=== PATIENT | female | born 1945 | race Caucasian/White ===

== ENCOUNTER → 2017-09-01 13:00 | Outpatient (CLI) | payer MEDICARE, OTHER, SELFPAY ==
[2017-09-01 13:47] LABS: Albumin, Serum 3.5 g/dL (3.2-5.0); BUN 13 mg/dL (7-18); Calcium,Total 9.4 mg/dL (8.5-10.1); Chloride 99 mmol/L (98-107); Creatinine, Serum 1.08 mg/dL (0.55-1.02); EST Glomerular Filtration Rate 53 mL/min (>60); Est Glom Filt Rate - Afr Amer 64 mL/min (>60); Glucose 57 mg/dL (74-106); Phosphorus 3.4 mg/dL (2.5-4.9); Potassium 4.1 mmol/L (3.5-5.1); Sodium Level 139 mmol/L (136-145)
[2017-09-01 13:53] LABS: Protein, Urine (Random) < 6.0 mg/dL (<11.9)
[2017-09-01 14:21] LABS: PTHIN 73.6 pg/mL (18.4-80.1); Vitamin D,25 Hydroxy 47.3 ng/mL (29.95-100.01)
== END ==
PROVIDERS: Family Provider Family Medicine; PCP Family Medicine; Visit Provider Internal Medicine Nephrology
DX: N18.3 Chronic kidney disease, stage 3 (moderate) (principal); R80.9 Proteinuria, unspecified
CPT/HCPCS: 36415; 80069; 82306; 82570; 83970; 84156

== ENCOUNTER → 2017-12-22 08:20 | Outpatient (CLI) | payer MEDICARE, OTHER, SELFPAY ==
--- NOTE | 2017-12-22 08:36 | ECHOD_ITS ---
Reason For Study: HTN Procedure This was a 2D Doppler, Color Flow transthoracic echocardiogram. The study was technically difficult. Exam performed in department. Left Ventricle Normal LV size. Left ventricular systolic function is normal. The estimated ejection fraction is 60 %. Transmitral diastolic flow velocities suggest moderate (stage 2) diastolic dysfunction (pseudonormal pattern). No regional wall motion abnormalities noted. Right Ventricle Normal RV size. Normal systolic function. Atria Normal left atrium. Normal right atrium. Mitral Valve Normal mitral valve. Tricuspid Valve Normal tricuspid valve. Mild (1+) tricuspid valve insufficiency. Pulmonary artery systolic pressure is 34 mmHg. Aortic Valve Trisinus/trileaflet aortic valve. Pulmonic Valve Normal pulmonic valve. Great Vessels Normal aortic root. The pulmonary artery is normal size. Normal inferior vena cava. Pericardium/Pleural No pericardial effusion. MMode/2D Measurements & Calculations LVIDd: 4.0 cm IVSd: 0.97 cm LVOT diam: 1.8 cm LVIDs: 2.0 cm LVPWd: 0.84 cm LVOT area: 2.6 cm2 FS: 49.3 % LAV(MOD-sp4): 22.7 ml LA A4 area: 11.4 cm2 RA A4 area: 12.4 cm2 Time Measurements MV dec time: 0.16 sec Doppler Measurements & Calculations MV E max patrick: 125.6 cm/sec Lat Peak E' Patrick: 7.7 cm/sec Med Peak E' Patrick: 11.5 cm/sec MV A max patrick: 103.5 cm/sec E/E' lat: 16.2 E/E' med: 10.9 MV E/A: 1.2 MV V2 max: 134.8 cm/sec MV P1/2t max patrick: 134.8 cm/sec Ao V2 max: 134.8 cm/sec MV max P.3 mmHg MV P1/2t: 61.0 msec Ao max P.3 mmHg MV V2 mean: 70.6 cm/sec MV dec slope: 647.2 cm/sec2 Ao V2 mean: 94.4 cm/sec MV mean P.4 mmHg MVA(P1/2t): 3.6 cm2 Ao mean P.0 mmHg MV V2 VTI: 34.6 cm Ao V2 VTI: 31.8 cm MVA(VTI): 2.0 cm2 EMIR(I,D): 2.1 cm2 EMIR(V,D): 2.2 cm2 LV V1 max: 109.5 cm/sec SV(LVOT): 67.5 ml PA V2 max: 141.2 cm/sec LV V1 max P.8 mmHg LV V1 mean P.4 mmHg LV V1 mean: 72.0 cm/sec LV V1 VTI: 25.5 cm TR max patrick: 277.8 cm/sec TR max P.9 mmHg Interpretation Summary Normal LV size. Left ventricular systolic function is normal. The estimated ejection fraction is 60 %. Transmitral diastolic flow velocities suggest moderate (stage 2) diastolic dysfunction (pseudonormal pattern). Mild (1+) tricuspid valve insufficiency. Ordering Physician: Brent Cifuentes Referring Physician: Brent Cifuentes Performed By: Deon Nelson, [facility]
[2017-12-22 09:53] LABS: AST(SGOT) 24 U/L (15-37); Alanine Aminotransfer ALT/SGPT 21 U/L (13-56); Albumin, Serum 3.4 g/dL (3.2-5.0); Alkaline Phosphatase 87 U/L (45-117); Bilirubin, Direct 0.17 mg/dL (0.00-0.30); Cholesterol 184 mg/dL (200); Globulin 3.5 g/dL (2.2-4.2); High Density Lipoprotein 79 mg/dL; Protein, Total 6.9 g/dL (6.4-8.2); Triglycerides 105 mg/dL; Very Low Density Lipoprotein 21 mg/dL (5-40)
== END ==
PROVIDERS: Family Provider Family Medicine; PCP Family Medicine; Visit Provider Internal Medicine Cardiovascular Disease
DX: I10 Essential (primary) hypertension (principal); E78.00 Pure hypercholesterolemia, unspecified; Z98.890 Other specified postprocedural states
CPT/HCPCS: 36415; 80061; 80076; 93306

== ENCOUNTER → 2018-01-27 10:54 | Outpatient (CLI) | payer MEDICARE, OTHER, SELFPAY | PROVIDERS: Family Provider Family Medicine; PCP Family Medicine; Visit Provider Family Medicine | DX: M25.552 Pain in left hip (principal) | CPT/HCPCS: 73502 ==

== ENCOUNTER → 2018-04-05 13:20 | Outpatient (CLI) | payer MEDICARE, OTHER, SELFPAY ==
[2018-04-05 14:35] LABS: Anion Gap 7 (5-15); BUN 17 mg/dL (7-18); BUN/Creat Ratio 14.8 RATIO (10-20); Chloride 100 mmol/L (98-107); Creatinine, Serum 1.15 mg/dL (0.55-1.02); EST Glomerular Filtration Rate 49 mL/min (>60); Est Glom Filt Rate - Afr Amer 59 mL/min (>60); Glucose 95 mg/dL (74-106); Potassium 4.4 mmol/L (3.5-5.1); Sodium Level 140 mmol/L (136-145)
[2018-04-05 16:52] LABS: Microalbumin,Random Urine 6.5 mg/L (NO RANGE EST.); Microalbumin:Creatinine Ratio 13.3 mg/g CRE (<30 mg/g CRE)
== END ==
PROVIDERS: Family Provider Family Medicine; PCP Family Medicine; Referring Provider Internal Medicine Nephrology; Visit Provider Internal Medicine Nephrology
DX: N18.3 Chronic kidney disease, stage 3 (moderate) (principal)
CPT/HCPCS: 36415; 80048; 82043; 82570

== ENCOUNTER → 2018-11-10 14:53 | Outpatient (CLI) | payer MEDICARE, OTHER, SELFPAY ==
[2018-11-04 12:48] VITALS: BMI 30.9
--- NOTE | 2018-11-10 14:56 | BI_ITS ---
MAMMOGRAPHY - BILATERAL SCREENING REASON FOR EXAM: Female, 73 years old. Routine annual screening examination. PERTINENT HISTORY: Non-contributory. Remote right excisional breast biopsy. TECHNIQUE: Digital bilateral breast radha (3D mammographic acquisition) in the CC and MLO projections. 2-D mediolateral oblique (MLO) and craniocaudad (CC) views of both breasts were obtained. CAD: Full Field Digital Mammography with Computer Added Detection was performed. COMPARISON: Comparison is made with prior study April 22, 2017 and March 06, 2016 FINDINGS: Breast Composition: The breasts are heterogeneously dense, which may obscure small masses. There are no dominant masses or suspicious calcifications. Stable small bilateral axillary lymph nodes. No other significant abnormalities are identified. There has been no significant change since the prior study. BI/SCREENING MAMM (CAD), BILAT IMPRESSION: Stable bilateral screening mammogram. Yearly follow-up mammogram recommended. (A) ASSESSMENT CATEGORY: BIRADS Category 2: Benign. A letter regarding these results will be sent to the patient by the facility within 30 days. Approximately 10% of breast cancers are not detected by mammography. A normal mammogram should not delay biopsy of a clinically suspicious abnormality. [id number] Electronically Signed: Kenneth Dominguez, at 15:55 EDT , Service support ,
== END ==
PROVIDERS: Family Provider Family Medicine; PCP Family Medicine; Referring Provider Family Medicine; Visit Provider Family Medicine
DX: Z12.31 Encounter for screening mammogram for malignant neoplasm of breast (principal)
CPT/HCPCS: 77063; 77067

== ENCOUNTER → 2019-01-17 12:42 | Outpatient (CLI) | payer MEDICARE, OTHER, SELFPAY ==
[2019-01-04 08:36] VITALS: BMI 32.1
[2019-01-17 13:34] LABS: Hematocrit 36.1 % (37-47); Mean Corp Hgb Conc 33.2 g/dL (32-36); Mean Corpuscular Hgb 31.6 pg (27.0-32.0); Platelet Count 196 K/mm3 (150-450); RBC Distribution Width CV 13.6 % (11.6-14.6); RBC Distribution Width SD 47.4 fl (35.1-43.9); White Blood Count 6.1 K/mm3 (4.4-11.0)
[2019-01-17 14:03] LABS: Albumin, Serum 3.5 g/dL (3.2-5.0); BUN 19 mg/dL (7-18); BUN/Creat Ratio 16.2 RATIO (10-20); Calcium,Total 9.6 mg/dL (8.5-10.1); Chloride 100 mmol/L (98-107); Creatinine, Serum 1.17 mg/dL (0.55-1.02); EST Glomerular Filtration Rate 48 mL/min (>60); Est Glom Filt Rate - Afr Amer 58 mL/min (>60); Glucose 70 mg/dL (74-106); Phosphorus 3.2 mg/dL (2.5-4.9); Potassium 4.4 mmol/L (3.5-5.1); Sodium Level 139 mmol/L (136-145)
[2019-01-17 14:09] LABS: PTHIN 52.5 pg/mL (18.4-80.1); Vitamin D,25 Hydroxy 37.8 ng/mL (29.95-100.01)
== END ==
PROVIDERS: Family Provider Family Medicine; PCP Family Medicine; Referring Provider Internal Medicine Nephrology; Visit Provider Internal Medicine Nephrology
DX: N18.3 Chronic kidney disease, stage 3 (moderate) (principal)
CPT/HCPCS: 36415; 80069; 82306; 83970; 85027

== ENCOUNTER → 2019-06-17 13:29 | Outpatient (CLI) | payer MEDICARE, OTHER, SELFPAY ==
[2019-01-04 08:36] VITALS: BMI 32.1
--- NOTE | 2019-06-17 13:53 | BI_ITS ---
MAMMOGRAPHY - UNILATERAL DIAGNOSTIC: LEFT BREAST REASON FOR EXAM: Female, 73 years old. Left breast lump. Two-week history of nipple inversion. PERTINENT HISTORY: Non-contributory. TECHNIQUE: Digital unilateral breast radha (3D mammographic acquisition) in the CC and MLO projections. 2-D mediolateral oblique (MLO) and craniocaudad (CC) views of both breasts were obtained. CAD: Full Field Digital Mammography with Computer Added Detection was performed. COMPARISON: Comparison is made with prior mammogram dated November 10, 2018. FINDINGS: Breast Composition: The breasts are heterogeneously dense, which may obscure small masses. There are no dominant masses or suspicious calcifications. No other significant abnormalities are identified. There has been no significant change since the prior study. BI/DIAG MAMM W/CAD, UNILAT IMPRESSION: Stable unilateral diagnostic mammogram. With the patient''s history of the abnormality in the left periareolar region, correlation with ultrasound is recommended. ASSESSMENT CATEGORY: BIRADS Category 0: Incomplete. Need additional imaging evaluation. A letter regarding these results will be sent to the patient by the facility within 30 days. Approximately 10% of breast cancers are not detected by mammography. A normal mammogram should not delay biopsy of a clinically suspicious abnormality. Electronically Signed: Kenneth Dominguez, at 12:42 EST , Service support ,
--- NOTE | 2019-06-17 13:53 | US_ITS ---
STUDY: ULTRASOUND BREAST - LEFT REASON FOR EXAM: Female, 73 years old. Inversion of the left breast nipple. TECHNIQUE: Axial and longitudinal images of the LEFT breast were performed with a high resolution ultrasound transducer. # OF IMAGES: 122 COMPARISON: Comparison is made with prior mammogram dated June 17, 2019. FINDINGS: LEFT Breast: There is a 1.8 cm x 2.3 cm x 1.6 cm inhomogeneous hypoechoic nodule with posterior acoustical shadowing at the 3:00 position of the breast that 3 cm from the nipple. A similar-appearing nodule measuring 1.1 cm x 1.2 cm x 0.9 cm is seen at the 6:00 position of the breast is 6 cm from nipple. US/Breast Complete Unilateral IMPRESSION: Suspicious nodules in the breast as described. Biopsy is recommended. ASSESSMENT CATEGORY: BIRADS Category 5: Highly Suggestive of Malignancy - Appropriate Action Should Be Taken. A letter regarding these results will be sent to the patient by the facility within 30 days. Electronically Signed: Kenneth Dominguez, at 10:49 EST , Service support ,
== END ==
PROVIDERS: Family Provider Family Medicine; PCP Family Medicine; Referring Provider Family Medicine; Visit Provider Family Medicine
DX: N63.42 Unspecified lump in left breast, subareolar (principal); N64.59 Other signs and symptoms in breast
CPT/HCPCS: 76641; 77061; 77065; G0279

== ENCOUNTER → 2019-06-23 10:38 | Outpatient (CLI) | payer MEDICARE, OTHER, SELFPAY ==
[2019-06-22 15:09] VITALS: BMI 32.1
--- NOTE | 2019-06-23 | IMM_PTH ---
PATIENT: BASSAM JAIN LOC: [facility] U#:[id number] AGE/SX: 79/F ROOM: RE06/23/[address]: Dr. Amarilis Fernandez MD : 1945 BED: DIS: SPEC #: [id number] RECD: 06/24/19 12:55 STATUS: GINA REQ #: [id number] HENRI: 06/23/19 00:[address]: Amarilis Fernandez DEPT: IMMUNOHISTOCHEMISTRY RECD BY: Snehal Wheeler ENTERED: 06/24/19 13:01 SP TYPE: IMMUNO OTHR DR: Dr. Celina Dangelo DO Tissues: A - Left breast, NOS B - Left breast, NOS Procedures: CALPONIN-1 (add) CK5-6 (add) CK8 (add) E-CAD (add) HER2 OUMOU (add) KI-67 (add) P53 (add) AK (add) P40 (add) ER (initial) PHYSICIAN & INSTITUTION [address] [address] SPECIMEN INFORMATION: Tissue Source: A - Left breast at 2 o'clock, B - Left breast at 9 o'clock Clinical Info: Left breast mass Specimen Number: [id number] A & B CPT code: 41178 x2, 26847 x12, 72414 x6 METHODOLOGY: Deparaffinized sections of prefer/formalin-fixed tissue or PAP/DQ stained slides are incubated with monoclonal/polyclonal antibodies/oligonucleotide probes. Localization is made via biotin free immunoperoxidase method. Appropriate controls are performed and reacted as expected. Results on target cell population are indicated in the following table: RESULTS: ANTIBODY / CLONE RESULT Block A P53 (DO-7) positive 2% Ki-67 (30-9) positive 15% CK8 (94nvwmE47) positive CK5-6 (D5 & 1684) negative Calponin-1 (DC298M) negative P40 (BC28) negative E-Cad (ECH-6) negative MORPHOMETRIC ANALYSIS ER (clone 6F11) >95%, strong intensity AK (clone 16/1E2) 83%, moderate to strong intensity Her-2Neu (clone CB11) 0 Block B P53 (DO-7) positive 2% Ki-67 (30-9) positive 10% CK8 (11ygbqN62) positive CK5-6 (D5 & 1684) negative Calponin-1 (LY379D) negative P40 (BC28) negative E-Cad (ECH-6) negative MORPHOMETRIC ANALYSIS ER (clone 6F11) >95%, strong intensity AK (clone 16/1E2) 35%, moderate intensity Her-2Neu (clone CB11) 0 The prognostic test for HER2 is performed on formalin-fixed paraffin embedded tissue. A 3+ (positive) staining pattern is defined as intense, homogeneous, complete, circumferential membranous staining in >10% of contiguous tumor cells. A similar weak (2+) staining pattern is interpreted as equivocal. EDISON follow-up testing is recommended for all equivocal cases. Positivity/negativity for ER/AK is reported if > or < 1% of the tumor cells are immuno- reactive, respectively. The ASCO/CAP criteria is used for scoring. Reference: Journal of Clinical Oncology, 2013; 31:0546-7631 & 2010; 16:4860-9648. Duration of fixation: 8 Hrs; Sample Adequate: Yes. These assays have not been validated on decalcified tissues. Results should be interpreted with caution given the likelihood of false negativity on decalcified specimens. These tests were developed and their performance characteristics determined by [facility]. They may not have been cleared or approved by the U.S. Food and Drug Administration. The FDA has determined that such clearance or approval is not necessary. The above immunohistochemical/dualISH markers are ordered and reviewed by the Pathologist. INTERPRETATION: A. Left breast at 2 o'clock, biopsy: Invasive lobular carcinoma, nuclear grade 1. Positive for estrogen receptors (favorable prognostic indicator). Positive for progesterone receptors (favorable prognostic indicator). Negative for overexpression of SXZ7upr. B. Left breast at 9 o'clock, biopsy: Invasive lobular carcinoma, nuclear grade 1. Positive for estrogen receptors (favorable prognostic indicator). Positive for progesterone receptors (favorable prognostic indicator). Negative for overexpression of SJE5xse. AM:dawit 06/27/19
--- NOTE | 2019-06-23 10:39 | US_ITS ---
STUDY: ULTRASOUND BREAST - LEFT REASON FOR EXAM: Female, 73 years old. Ultrasound guided left breast biopsies. TECHNIQUE: Axial and longitudinal images of the LEFT breast were performed with a high resolution ultrasound transducer. # OF IMAGES: 50 COMPARISON: Comparison is made with prior sonogram of the breast dated June 17, 2019. FINDINGS: LEFT Breast: Under direct sonographic guidance, the surgeon performed an ultrasound-guided core biopsies of the 1.5 cm x 1.9 cm by 2 cm suspicious nodule at the 2:00 position of the breast at 3 cm from the nipple. This region also perform core biopsies of the 0.9 cm x 1.3 cm x 1.6 cm suspicious nodule at the 6:00 addition of the breast at 3 cm from the nipple. US/US Breast Biopsy 1st Lesion IMPRESSION: Successful ultrasound-guided core biopsies of the abdomen out the seen at the 2:00 and 5:00 position of the breast. ASSESSMENT CATEGORY: BIRADS Category 4: Suspicious - Biopsy Should Be Considered. A letter regarding these results will be sent to the patient by the facility within 30 days. Electronically Signed: Kenneth Dominguez, at 15:54 EST , Service support ,
--- NOTE | 2019-06-23 11:15 | BRBX_PTH ---
PATIENT: BASSAM JAIN LOC: [facility] U#:[id number] AGE/SX: 79/F ROOM: RE06/23/[address]: Dr. Amarilis Fernandez MD : 1945 BED: DIS: SPEC #: [id number] RECD: 06/23/19 12:00 STATUS: GINA REJurgen #: [id number] HENRI: 06/23/19 11:[address]: Amarilis Fernandez DEPT: SURGICAL PATHOLOGY RECD BY: Mohit Nowak ENTERED: 06/23/19 13:52 SP TYPE: BREAST BX OTHR DR: Dr. Celina Dangelo DO Tissues: A - Left breast, NOS B - Left breast, NOS Procedures: Surgery Specimen Level IV HEADER OPERATION: Left breast biopsy PRE-OP DIAGNOSIS: Left breast mass TISSUE SUBMITTED: A - Left breast at 2 o'clock, B - Left breast at 5 o'clock ISCHEMIC TIME: 1 minute FIXATION TIME: 8 hours MICROSCOPIC DIAGNOSIS A. Left breast mass at 2 o'clock, needle core biopsy: Invasive lobular carcinoma with the following characteristics: Maximal length - 7 millimeters Nuclear grade - 1 See comment. B. Left breast mass at 5 o'clock, needle core biopsy: Invasive lobular carcinoma with the following characteristics: Maximal length - 8 millimeters Nuclear grade - 1 See comment. AM:dawit 06/24/19 COMMENT A & B. ER/ME/Wec4tzn studies are being performed on sections of tumor and the results from this study will be reported separately ([id number]). Case has been reviewed in consultation with Dr. Vega who concurs with the above diagnosis. IDC:SJ MICROSCOPIC DESCRIPTION Slides are reviewed. GROSS DESCRIPTION A - Received is one container labeled with the patient's name and not further designated. The specimen consists of two cores of light couch soft tissue. The average length is 1.5 cm and average diameter 0.2 cm. The specimen is totally submitted in one cassette. B - Received is one container labeled with the patient's name and not further designated. The specimen consists of three cores of light couch soft tissue. The average length is 1.3 cm and average diameter 0.2 cm. The specimen is totally submitted in one cassette. / AM:dawit 06/23/19 TC:0 CPT: 03260 x2
--- NOTE | 2019-06-23 11:38 | OP.PCM_ITS ---
Report of Operation Date of Procedure: 06/23/19 Pre-Operative Diagnosis: Left breast mass x2, left nipple inversion Post-Operative Diagnosis: Same Surgery/Procedure Performed:: Ultrasound-guided left breast core needle biopsy x2, one at 2:00 3 cm from the nipple and one at 5:00 3 cm from the nipple Special Medications: none Specimen's removed: 1. Left breast mass at 2:00 3 cm from nipple, #2 left breast mass at 5:00 3 cm from the nipple Estimated Blood Loss (mL): Minimal Description of Procedure: Procedure: ultrasound-guided core biopsy Indications: 73 year-old female with 2 hypoechoic, irregular/shadowing nodules at 2:00 and 5:00 in the left breast both 3 centimeters from the nipple. Risk benefits were discussed the patient and she elected to proceed with ultrasound guided core biopsy with clip placement Description of procedure: Patient was brought into the ultrasound room in the left breast was marked. A timeout was completed verifying correct patient, procedure, site, specially, prior to beginning procedure. The left breast was prepped and draped in usual sterile fashion and using local anesthesia was obtained with 1% lidocaine with epi. Each of the procedures for each mass done similarly. The mass was located with the ultrasound. Small incision was made with 11 blade to introduced the 14-gauge BARD MaxCore through the skin. Under ultrasound guidance 2-3 core samples were obtained using then 14-gauge BARD MaxCore and sent in formalin for pathology of each of the masses. The hydro- Devante coil was used at 2:00 3 cm from nipple and Bard dual ultra ribbon was used at 5:00 3 cm from the nipple was then deployed into the biopsy cavity under ultrasound guidance and a picture was taken. Upon completion procedure hemostasis was obtained and a Steri-Strip and OpSite were placed. Patient was then taken to the mammography suite for clip verification. The clip was verified. The patient tolerated the procedure well and was discharged from the breast imaging department good condition. complications: none - Complications None
== END ==
PROVIDERS: Family Provider Family Medicine; PCP Family Medicine; Referring Provider Surgery; Visit Provider Surgery
DX: C50.412 Malignant neoplasm of upper-outer quadrant of left female breast (principal); C50.512 Malignant neoplasm of lower-outer quadrant of left female breast; Z17.0 Estrogen receptor positive status [ER+]
CPT/HCPCS: 19083; 19084; 88305; 88341; 88342

== ENCOUNTER → 2019-06-29 11:15 | Outpatient (CLI) | payer MEDICARE, OTHER, SELFPAY ==
[2019-06-22 15:09] VITALS: BMI 32.1
[2019-06-29 11:48] LABS: AST(SGOT) 18 U/L (15-37); Alanine Aminotransfer ALT/SGPT 24 U/L (13-56); Albumin, Serum 3.5 g/dL (3.2-5.0); Alkaline Phosphatase 81 U/L (45-117); Anion Gap 5 (5-15); BUN 19 mg/dL (7-18); BUN/Creat Ratio 13.8 RATIO (10-20); Bilirubin, Direct 0.19 mg/dL (0.00-0.30); Calcium,Total 9.6 mg/dL (8.5-10.1); Chloride 101 mmol/L (98-107); Creatinine, Serum 1.38 mg/dL (0.55-1.02); EST Glomerular Filtration Rate 40 mL/min (>60); Est Glom Filt Rate - Afr Amer 48 mL/min (>60); Globulin 3.6 g/dL (2.2-4.2); Glucose 130 mg/dL (74-106); Potassium 4.2 mmol/L (3.5-5.1); Protein, Total 7.1 g/dL (6.4-8.2); Sodium Level 138 mmol/L (136-145)
== END ==
PROVIDERS: Family Provider Family Medicine; PCP Family Medicine; Referring Provider Surgery; Visit Provider Surgery
DX: C50.919 Malignant neoplasm of unspecified site of unspecified female breast (principal)
CPT/HCPCS: 36415; 80048; 80076

== ENCOUNTER → 2019-06-30 11:42 | Outpatient (CLI) | payer MEDICARE, OTHER, SELFPAY ==
[2019-06-22 15:09] VITALS: BMI 32.1
--- NOTE | 2019-06-30 11:42 | MRI_ITS ---
STUDY: BILATERAL BREAST MR WITHOUT AND WITH CONTRAST REASON FOR EXAM: Female, 73 years old. Left breast cancer diagnosed June 23, 2019. History of multiple biopsies and nipple retraction. TECHNIQUE: Multi-sequence multi-echo imaging of both breasts was performed with a dedicated breast coil. T1-weighted and T2-weighted images were performed before the administration of contrast. T1-weighted images were also performed after the administration of Dotarem IV 14 ml without complications. COMPARISON: Screening mammograms dated October 2018 and left diagnostic mammogram dated June 17, 2019. Left breast ultrasound biopsy dated July 03, 2019. FINDINGS: RIGHT BREAST: The breast tissue is heterogeneously dense with minimal background enhancement. There are no abnormal enhancing masses or areas of non-mass enhancement in the right breast. LEFT BREAST: The breast tissue is heterogeneously dense. 7 mm irregular enhancing lesion at the 2:00 position of the left breast approximately 5 cm from the nipple. Extensive non-mass enhancement of the left breast in an area measuring approximately 7 cm x 8 cm extending to the subareolar region of the left breast with retraction of the nipple. Extensive enhancement in the subareolar region of the retracted nipple (sagittal series 7 images 6-18). This extensive non-mass enhancement is highly suspicious for contiguous parenchymal malignancy, especially since the enhancement extends to the subareolar region and there is nipple retraction. There are no enlarged or abnormal lymph nodes. There is no abnormality in the visualized regions of the chest or liver. MRI/Breast Bilateral W/O and W IMPRESSION: Index lesion at the 2:00 position with irregular enhancement as described. Extensive non-mass enhancement extending involving the upper and lower quadrants of the left breast extending to the subareolar region of the nipple, highly suspicious for parenchymal malignant involvement. No abnormality in the right breast. No adenopathy identified. CATEGORY: BIRADS Category 6: Known Biopsy-Proven Malignancy - Appropriate Action Should Be Taken. A letter regarding these results will be sent to the patient by the facility within 30 days. Electronically Signed: Jason Gong MD at 16:11 EST , Service support ,
[2019-06-30 12:22] VITALS: BP 127/58; PULSE 67; RESP 14; TEMP 36.6; O2SAT 98; BMI 30.3
== END ==
PROVIDERS: Family Provider Family Medicine; PCP Family Medicine; Referring Provider Surgery; Visit Provider Surgery
DX: C50.912 Malignant neoplasm of unspecified site of left female breast (principal); N64.53 Retraction of nipple; N17.9 Acute kidney failure, unspecified
CPT/HCPCS: 96360; 77049; A9575; J7040; C8908

== ENCOUNTER 2019-08-05 12:04 | Inpatient (IN) | payer MEDICARE, OTHER, SELFPAY ==
[2019-07-27 13:53] VITALS: BMI 30.3
--- NOTE | 2019-07-28 09:06 | HP_ITS ---
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 Is patient in pain?: No Allergies codeine Adverse Reaction (Verified 07/27/19 13:52) Vomiting hydrocodone Adverse Reaction (Verified 07/27/19 13:52) Vomiting meperidine [From Demerol] Adverse Reaction (Verified 07/27/19 13:52) Vomiting Medications Insulin Aspart [Novolog] 1,000 unit CONT INF 11/09/16 [History Confirmed 07/27/19] aspirin 81 mg chewable tablet 81 mg PO .qod tab 12/10/17 [History Confirmed 07/27/19] levothyroxine 25 mcg capsule 25 mcg PO QDAY 12/10/17 [History Confirmed 07/27/19] simvastatin 10 mg tablet 10 mg PO QHS #90 tab 09/15/18 [Rx Confirmed 07/27/19] lisinopril 20 mg-hydrochlorothiazide 25 mg tablet 1 tab PO DAILY #90 tab 10/13/18 [Rx Confirmed 07/27/19] ranolazine 500 mg tablet,extended release,12 hr 500 mg PO DAILY #90 tab 10/13/18 [Rx Confirmed 07/27/19] cbd oil 500 mg SUBLINGUAL DAILY 01/04/19 [History Confirmed 07/27/19] cholecalciferol (vitamin D3) 25 mcg (1,000 unit) capsule 1,000 unit PO .QOD cap 01/04/19 [History Confirmed 07/27/19] turmeric-turmeric ext-pepper 500 mg-black pepper extract 3 mg capsule mg PO cap 01/04/19 [History Confirmed 07/27/19] amlodipine 5 mg tablet 5 mg PO DAILY #90 tab 02/24/19 [Rx Confirmed 07/27/19] metoprolol succinate 100 mg tablet,extended release 24 hr 100 mg PO DAILY #90 tab 03/21/19 [Rx Confirmed 07/27/19] [id number] pepper 100 mg-200 unit-50 mg-800 mcg tablet tab PO 07/18/19 [History Confirmed 07/27/19] [facility] Medical History Hyperlipidemia (Chronic) Essential (primary) hypertension (Chronic) Back problem (Acute) Breast cancer, left breast (Acute ~06/2019) Cataracts, bilateral (Acute) Hearing problem (Acute) Kidney disease (Acute) Osteoarthritis (Acute) Osteoporosis (Acute) Vision problems (Acute) Arthritis (Chronic) Environmental allergies (Chronic) Hyperthyroidism (Chronic) Type 2 diabetes mellitus without complications (Chronic) Acute renal failure (Resolved) Surgical History History of left breast biopsy (Acute ~06/2019) Status post right breast biopsy (Acute) History of left heart catheterization (Resolved 10/30/06) History of tubal ligation (Resolved) Family History Father Myocardial infarction <55 Heart disease Hypertension High cholesterol Mother Osteoporosis Skin cancer Social History (Updated 07/28/19 @ 09:06 by Amarilis Fernandez MD) Smoking Status: Never smoker alcohol intake: current alcohol intake frequency: holidays/special occasions only substance use type: does not use caffeine: Yes Type: coffee Number of servings: 2 additional social history: DOES USE ASPIRIN DOES NOT USE IBUPROFEN HPI HPI HPI: BASSAM JAIN, is a 73 F who presents to the office today for HPI HPI Surgical H&P: Yes HPI: BASSAM JAIN, is a 73 F who presents to the office today for discussion of surgical option for her left clinical stage IIa (T3N0) invasive lobular carcinoma?ER NH positive and HER-2/twin negative. Patient did meet with Dr. Stanford as well as Dr. Peñaloza with plastic surgery. Patient currently does not want reconstructive surgery may consider in the future. ROS General General: No weight change, fatigue, colon cancer, breast cancer or weakness HEENT HEENT: No difficulty swallowing, eye injury, eye surgery, swollen glands or hoarseness Endo Endocrine: Yes thyroid disease and diabetes mellitus; no thyroid cancer, Hair loss, heat intolerance or cold intolerance Skin Skin: No rash or changing moles Breast Breast: Yes left breast lump (Left nipple inversion) and abnormal US; no right breast lump, breast pain, abnormal mammogram or breast enlargement Musc Musculoskeletal: Yes back problems and arthritis; no rheumatoid arthritis, gout or joint pain Cardio Cardiovascular: Yes high blood pressure; no murmur, pacemaker, heart disease, atrial fibrillation, heart attack, heart stent, palpitations, shortness of breat with exertion or chest pain Psych Psychiatric: No depression, anxiety or hearing voices Resp Respiratory: No shortness of breath, No sleep apnea, No cough, No COPD, No asthma, No emphysema, No wheezing Gastro Gastrointestinal: No abdominal pain, No nausea or vomiting, No diarrhea, No constipation, No blood in stool, No acid reflux, No hemorrhoids, No ulcers, No gallbladder problem, No black,tarry stools [place]bel Hematologic: No blood thinners, No blood disorders, No bleeding, No anemia, No blood clots Neuro Neurologic: No weakness Exam Const General: cooperative, comfortable, no acute distress Chest Other: Left breast ecchymosis resolving, firmness on the lateral and inferior aspect along with nipple retraction, left axillary no lymphadenopathy on exam Cardio Heart Sounds: no murmurs Assessment & Plan Problems 1. Invasive lobular carcinoma of left breast in female C50.912 multifocal Plan I have given the patient options for initial surgical treatment?discussed with patient that due to the large area of tumor on exam and MRI would not recommend lumpectomy. Options are the following: mastectomy vs. mastectomy followed by immediate reconstruction. I have described the procedures to the patient. I have described the advantages and disadvantages of the options, but I have told the patient that among the options, the survival rate for breast cancer is the same. I have told the patient that with all the surgeries that a sentinel lymph node biopsy is required. I have described the procedure of sentinel lymph node biopsy to the patient. I have told the patient that if the biopsy is positive for metastatic disease, then a full axillary lymph node dissection is required. I have told the patient that adjuvant chemotherapy will be required should the lymph nodes reveal metastatic disease. Also, a full lymph node dissection will increase the risk for lymphedema, especially if there are 4 or more lymph nodes positive for metastatic disease and radiation to the axilla is also required. I have told the patient the risks of surgery, including but not limited to: infection, bleeding, scar tissue, seroma and persistent seroma, lymph leak, injury to any blood vessels, injury to any nerves (particularly the long thoracic, the thoracodorsal, and the second intercostal brachial and the resultant sequelae), lymphedema, cosmetic deformity, dysesthesias, wound infections, further surgery (especially if margins are not clear), complications of anesthesia, etc. the patient understands. Patient has already met with Dr. Peñaloza and does not plan to do any reconstruction currently. Is agreeable with a left mastectomy and sentinel lymph node biopsy, possible axillary lymph node dissection, nuclear tracer and blue dye injection. I have answered all the patient?s questions at this point to her satisfaction and she has no further questions. Greater than 50% of direct patient contact was spent in counseling or coordination of care. I spent 25 minutes counseling the patient and coordinating care. Amarilis Fernandez M.D. Pager: [phone] [facility] [address] [place] [address], [address] [place] [address] Office: [phone] Plan Detail Goals Decrease pain and spasm Improve ROM Decrease pain in lower extremity Improve ability to stand Barriers Facet arthropathy Hip Degeneration Follow Up We will schedule surgery Coding Level of Care Code Off vis,est,level 4 Diagnoses Invasive lobular carcinoma of left breast in female C50.912 Time Spent (min) 07/28/19 0907 <Electronically signed by Amarilis Mackey am, MD> Date _ Amarilis Fernandez MD I have re-examined the patient. There are no clinical changes since date of exam.
[2019-08-03 11:58] LABS: Hemoglobin A1c 7.3 % (4.2-6.3)
[2019-08-03 12:08] LABS: Anion Gap 6 (5-15); BUN 19 mg/dL (7-18); BUN/Creat Ratio 14.1 RATIO (10-20); Calcium,Total 9.6 mg/dL (8.5-10.1); Chloride 103 mmol/L (98-107); Creatinine, Serum 1.35 mg/dL (0.55-1.02); EST Glomerular Filtration Rate 41 mL/min (>60); Est Glom Filt Rate - Afr Amer 49 mL/min (>60); Glucose 327 mg/dL (74-106); Potassium 4.5 mmol/L (3.5-5.1); Sodium Level 138 mmol/L (136-145); Thyroid Stim Hormone (TSH) 2.93 uIU/mL (0.358-3.74)
[2019-08-05] VITALS (12 sets, daily range): BP systolic 100–139; BP diastolic 51–64; PULSE 57–66; RESP 15–18; TEMP 36.1–37; O2SAT 95–99; BMI 29.9
--- NOTE | 2019-08-05 | AXNB_PTH ---
PATIENT: BASSAM JAIN LOC: MS3 U#:[id number] AGE/SX: 74/F ROOM: NH321 RE08/05/[address]: Dr. Keon Hussein MD : 1945 BED: 1 DIS: 08/08/2019 SPEC #: [id number] RECD: 08/05/19 13:23 STATUS: GINA REJurgen #: [id number] HENRI: 08/05/19 00:[address]: Amarilis Fernandez DEPT: SURGICAL PATHOLOGY RECD BY: Snehal Wheeler ENTERED: 08/05/19 14:01 SP TYPE: AX NODE BX OTHR DR: Dr. Celina Dangelo, DO Tissues: A - Axillary lymph node, NOS B - Left breast, NOS C - Left breast, NOS D - Left breast, NOS E - Axilla, NOS F - Left breast, NOS Procedures: Frozen Section (charge) Surgery Specimen Level IV Surgery Specimen Level V Surgery Specimen Level HEADER OPERATION: Mastectomy, sentinel lymph node biopsy, radiotracer ID PRE-OP DIAGNOSIS: Invasive lobular carcinoma left breast TISSUE SUBMITTED: A - [place] lymph node sent for frozen section at 1315, B - Left breast, long stitch - lateral, short stitch - superior, C - Short stitch - new superior margin, long stitch - lateral, D - New inferior skin margin, short stitch - superior, long stitch - lateral, E - Axillary contents, F - New inferior margin, short stitch - superior margin, long stitch - lateral FROZEN SECTION DIAGNOSIS A. [place] lymph nodes, biopsy: Two out of two lymph nodes, positive for metastatic carcinoma. SJ:dawit 08/05/19 MICROSCOPIC DIAGNOSIS A. Left axillary sentinel lymph nodes, biopsy: Two out of two lymph nodes positive for metastatic carcinoma. Extranodal tumor extension measures 7 mm in greatest dimension. B. Left breast, modified radical mastectomy: Invasive lobular carcinoma. See cancer checklist below. C. New superior margin, excision: Invasive lobular carcinoma. True margins are negative for carcinoma. D. New inferior skin margin, excision: Invasive lobular carcinoma. Cutaneous margin is free of carcinoma. Invasive carcinoma is present at 1.5 mm from the inferior margin. E. Left axillary sentinel lymph nodes, regional lymph adenectomy: 16 out of 16 lymph nodes with metastatic carcinoma. Multifocal extranodal extension (ranging in size from 1 to 6 mm). F. New inferior margin, excision: Invasive lobular carcinoma. True inferior margin is free of carcinoma. Carcinoma is located at 13 mm from true margin. AM:dawit 08/11/19 COMMENT BREAST CANCER SUMMARY Procedure: Modified radical mastectomy Specimen: Type: Full breast Size: 21 x 15 x 6 cm Laterality: Left breast Invasive Tumor: Size: 9 x 8 x 6 cm Focality: Multiple foci of invasive carcinoma (largest focus 9 x 8 x 6 cm) Histologic type: Invasive lobular carcinoma. 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 Skeletal muscle: Free of carcinoma. Margins Involved by Invasive Carcinoma: Distance from closest margin: 13 mm from inferior margin Margins Involved by In Situ Carcinoma: Distance from closest margin: 22 mm from inferior margin Lymph Nodes: Number of sentinel lymph nodes examined: 2/2 with metastatic carcinoma and extranodal tumor. Total number of lymph nodes examined: 18 Number of lymph nodes positive for macrometastatic carcinoma - 18 out of 18 with extranodal extension ranging in size from 1 to 7 mm in greatest dimension. See specimens A & E. Microcalcifications: Present in neoplastic and non-neoplastic tissue. Treatment Effect: Unknown Additional Pathologic Findings: Atypical lobular hyperplasia and atypical intraductal hyperplasia closely approaching DCIS, (2.0mm in greatest dimension). Ancillary Studies: Previously performed on same tumor ([id number] / [id number]) ER: >95%, strong intensity ID: 83%, moderate to strong intensity Her2: 0 Clinical History: Mass of breast Pathologic Stage: pT3 N3a Mx The above summary is in compliance with [employer] [place] (CAP) Cancer Protocol Checklist and [place] Joint Committee on Cancer (AJCC) Staging Manual, 8th Ed. 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 Immunohistochemistry ([id number]) supports the above diagnosis. Case has been reviewed in consultation with Dr. Vega who concurs with the above diagnosis. IDC:SJ MICROSCOPIC DESCRIPTION Slides are reviewed. GROSS DESCRIPTION A - Received fresh for frozen section diagnosis labeled with the patient's name is a specimen designated sentinel lymph node. The specimen consists of two pieces of adipose tissue containing two nodules measuring 1 x 1 x 0.5 cm and 2 x 1 x 0.7 cm. Both lymph nodes are bisected and submitted entirely for frozen section diagnosis in two cassettes as follows: 1 - frozen section, one bisected lymph node, 2??frozen section, one bisected lymph node. / SJ:dawit 08/05/19 B - Received in fixative is one container labeled with the patient's name and designated left breast, long stitch - lateral, short stitch - superior. The specimen consists of a modified radical mastectomy specimen consisting of breast tissue with overlying skin ellipse. The breast tissue measures 21 x 15 x 6 cm. The overlying skin ellipse measures 21 x 10 cm. The nipple measures 1 cm in greatest dimension. The specimen is oriented with a suture, long stitch - lateral, short stitch - superior. The skin surface appears unremarkable. The specimen is inked as follows: posterior - black, superior - blue, inferior - green, medial - red and lateral - orange. More dictation will follow after fixation. / SJ:dawit 08/05/19 Section do not reveal well defined mass; however, reveal an indurated area present in the lateral to central portion of the specimen measuring 9 x 6 x 4 cm. The indurated area is ~0.5 cm away from the inferior margin of the specimen. Avionics Technician sections are submitted in 26 cassettes as follows: 1??nipple, entirely submitted, 2 - perpendicular medial and lateral margin, 3??perpendicular superior and posterior margins and skin, 4-22 - indurated mass-like lesion (4 & 5 - most lateral portion, 6-19 - medial portion, 20-23 - most medial portion), 24-26 - residential sales representative sections away from the indurated area. / SJ: 08/08/19 C - Received in fixative is one container labeled with the patient's name and designated short stitch - new superior margin, long stitch - lateral. The specimen consists of a piece of couch-yellow fibroadipose tissue measuring 19 x 5.5 cm and up to 2 cm in thickness. The specimen is oriented by two sutures, short suture is identifying the new superior margin and long suture the lateral margin. The specimen is inked as follows: new superior margin - black, old margin - blue, medial margin - red and lateral margin?- orange. Sections reveal yellow adipose cut surface without any mass lesion. Avionics Technician sections are submitted in eight cassettes as follows: 1 - perpendicular medial and lateral margin, 28??residential sales representative sections including new and old superior margin. Sections will be submitted after additional fixation. / SJ: 08/08/19 D - Received in fixative is one container labeled with the patient's name and designated new inferior skin margin, short stitch - superior, long stitch - lateral. The specimen consists of a piece of skin with underlying tissue measuring 16 x 1 cm and up to 3.5 cm in thickness. The specimen is oriented by two sutures, short stitch - superior, long stitch - lateral. No skin lesion is identified. The specimen is inked as follows: superior - blue, inferior - green, medial tip - red, lateral tip - orange. Sections do not reveal any mass lesion. Avionics Technician sections are submitted in eight cassettes as follows: 1 - perpendicular medial and lateral margin, 2-8 - residential sales representative sections from other areas including new inferior margin and superior margin. Sections will be submitted after additional fixation. / SJ: 08/08/19 E - Received in fixative is one container labeled with the patient's name and designated axillary contents. The specimen consists of a piece of adipose tissue measuring 8 x 9 x 3 cm. Also present in the container is a small piece of unremarkable adipose tissue measuring 3 x 2 x 1 cm. Multiple nodules consistent with lymph nodes are identified. The largest nodule measures 2 cm in greatest dimension. Sections of the nodule reveal gross involvement by the tumor. The nodules consistent with lymph nodes are submitted in entirety. Avionics Technician sections are submitted in nine cassettes as follows: 1 - three lymph nodes in the smaller piece of the tissue, 2-9 - larger piece of tissue (2 - multiple lymph nodes, 38??each cassette containing one bisected lymph node, 9 - largest lymph node serially sectioned). / SJ:dawit 08/08/19 F - Received in fixative is one container labeled with the patient's name and designated new inferior margin, short stitch - superior of margin, long stitch - lateral. The specimen consists of a piece of fibroadipose tissue measuring 9 x 4 x 1.5 cm. The specimen is oriented as follows: short stitch - superior, long stitch - lateral. The specimen is inked as follows: superior margin - blue, inferior margin - green, medial margin - red and lateral margin - orange. Sections do not reveal any mass lesion. Avionics Technician sections are submitted in eight cassettes as follows: 1 - perpendicular medial and lateral margin, 2-8 - residential sales representative sections from the other areas including superior and inferior margins. Sections are submitted after additional fixation. / GURWINDER:dawit 08/08/19 TC:0 CPT: 29006 x2, 60703 x3, 43008, 80781
--- NOTE | 2019-08-05 | IMM_PTH ---
PATIENT: BASSAM JAIN LOC: MS3 U#:[id number] AGE/SX: 74/F ROOM: AK321 RE08/05/[address]: Dr. Keon Hussein MD : 1945 BED: 1 DIS: 08/08/2019 SPEC #: [id number] RECD: 08/10/19 12:59 STATUS: SOUT REQ #: [id number] HENRI: 08/05/19 00:[address]: Amarilis Fernandez DEPT: IMMUNOHISTOCHEMISTRY RECD BY: Snehal Wheeler ENTERED: 08/10/19 13:00 SP TYPE: IMMUNO OTHR DR: Dr. Michoacano Donato, DO MD Dr. Karel Damon, DO Dr. Celina Dangelo, DO Tissues: B - Left breast, NOS A - Axillary lymph node, NOS Procedures: CD31 (add) CK7 (add) CK8 (add) E-CAD (add) FACTOR VIII (add) Pankeratin (initial) Pankeratin (add) GATA3 (add) PHYSICIAN & [address] [address] SPECIMEN INFORMATION: Tissue Source: A - [place] lymph nodes, biopsy, B - Left breast, mastectomy Clinical Info: Invasive lobular carcinoma left breast Specimen Number: [id number] A1, A2, B1, B6 CPT code: 59726 x2, 35945 x9 METHODOLOGY: Deparaffinized sections of prefer/formalin-fixed tissue or PAP/DQ stained slides are incubated with monoclonal/polyclonal antibodies/oligonucleotide probes. Localization is made via biotin free immunoperoxidase method. Appropriate controls are performed and reacted as expected. Results on target cell population are indicated in the following table: RESULTS: ANTIBODY / CLONE RESULT Block A1 AE1-3 (AE1/AE3/PCK26) positive CK7 (OV-TL12/30) positive Block A2 AE1-3 (AE1/AE3/PCK26) positive CK7 (OV-TL12/30) positive Block B1 GATA3 (L50-823) positive AE1-3 (AE1/AE3/PCK26) positive CK8 (95chvkJ06) positive CD31 (HELDER/70A) negative Factor VIII (R Ag) negative E-Cad (ECH-6) positive Block B6 E-Cad (ECH-6) positive These tests were developed and their performance characteristics determined by [facility]. They may not have been cleared or approved by the U.S. Food and Drug Administration. The FDA has determined that such clearance or approval is not necessary. The above immunohistochemical/dualISH markers are ordered and reviewed by the Pathologist. INTERPRETATION: A. Left axillary sentinel lymph nodes, biopsy: Two out of two lymph nodes positive for metastatic carcinoma. Extranodal tumor extension measures 7 millimeters B. Left breast, mastectomy: Invasive lobular carcinoma. Focal Paget's disease of breast. AM:dawit 08/12/19 Case has been reviewed in consultation with Dr. Vega who concurs with the above diagnosis. IDC:SJ
--- NOTE | 2019-08-05 09:48 | EKG12_ITS ---
Test Reason : PREOP Blood Pressure : / mmHG Vent. Rate : 065 BPM Atrial Rate : 065 BPM P-R Int : 176 ms QRS Dur : 090 ms QT Int : 438 ms P-R-T Axes : 052 018 005 degrees QTc Int : 455 ms Normal sinus rhythm Nonspecific T wave abnormality Abnormal ECG When compared with ECG of 05-APR-2009 20:27, Premature supraventricular complexes are no longer Present Confirmed by TYRELL RÍOS, SUNNY ([id number]), medical editor BONNIE AARON ([id number]) on 08/09/2019 1:30:15 PM Referred By: Amarilis Fernandez Confirmed By:JONNA SANTILLAN MD
--- NOTE | 2019-08-05 10:00 | NM_ITS ---
PROCEDURE: NUCLEAR MEDICINE Injection [place] Node - LEFT breast(s). REASON FOR EXAM: Female, 74 years old. Left breast cancer. TECHNIQUE: [place] node localization using radionuclide methods of the LEFT breast(s) was performed following subcutaneous administration of 1.1 mCi of of sulfur colloid Tc-99m. FINDINGS: 1.1 mCi of technetium labeled sulfur colloid was injected subcutaneously at the biopsy site. NM/Lymph Node Injection Only IMPRESSION: Subcutaneous injection of 1.1 mCi of technetium labeled sulfur colloid for sentinel node imaging. Electronically Signed: Kenneth Dominguez, at 10:31 EST , Service support ,
[2019-08-05] MEDS: Lactated Ringers 1,000 ML 100 ML IV ×2 (10:05→15:00)
[2019-08-05 10:06] LABS: Bedside Glucose 275 mg/dL (70-110)
[2019-08-05] MEDS: Cefazolin 2 GM in 0.9% Normal Saline 100 ML IV (12:00)
[2019-08-05] MEDS: 0.9% Normal Saline (Pres. free 10 ML Vial (12:33)
--- NOTE | 2019-08-05 15:34 | OP.PCM_ITS ---
Report of Operation Date of Procedure: 08/05/19 Pre-Operative Diagnosis: Left invasive lobular breast cancer Post-Operative Diagnosis: Left invasive lobular breast cancer, positive axillary nodes Surgery/Procedure Performed:: Left modified radical Mastectomy with axillary lymph node dissection heel builder machine: Nita Celaya heel builder machine: Andrew Wen Type of Anesthesia:: General/Supplemental Anesthesiologist: Giuseppe Lucas Special Medications: Ancef 2 g IV x1 Specimen's removed: 1. Left mastectomy, 2. New superior margin, 3. New inferior skin margin, 4. New inferior margin 5. [place] nodes, 6. Left axillary contents Drains: 2 JANEE Bhutanese round drains Estimated Blood Loss (mL): 50 cc Fluids Replaced: 1400 cc Description of Procedure: In radiology the breast tissue was injected with TC-9 9 sulfur colloid. 120 minutes later the patient was taken to the operating room and general anesthesia was induced. Localization studies were reviewed. 4 cc of methylene blue dye was injected in the 4 quadrants periareolar along with 10 cc of normal saline. This was massaged gently for 7 minutes. The left breast and axilla were prepped and draped in usual sterile fashion. A timeout was completed verifying correct patient, procedure, site, positioning, special equipment prior to beginning procedure. Handheld gamma probe was used to identify the location of the hottest spot in the axilla. Prior to the incision, the counts were 7. The incision was made and no obviously hot or blue nodes were identified two nodes, one node had a 10 count of 3 and the other 7. Were palpated which were sent to pathology. Then did proceed with the mastectomy with plans to come back and do the axillary lymph node dissection Skin incision was made that encompassed the nipple areolar complex in generally oblique direction across the breast, being sure to take extra tissue on the inferior flap due to proximity of the cancer. Flaps are raised in the avascular plane between the prescription he continues tissues in the breast tissue from the clavicle superiorly, the sternum medially, the anterior rectus sheath inferiorly, and posterolateral border of the pectoralis major muscle laterally. Hemostasis was achieved in the flaps. Next, the breast tissue and underlying pectoralis fascia were excised from the pectoralis major muscle, progressing from medial to laterally. At the lateral border of the pectoralis major muscle, the breast tissue was swung laterally and the lateral pedicle identified with the breast tissue gave way to the fat of the axilla. The lateral pedicle was incised and the specimen removed and oriented for pathology. Additional margins for superior and inferior were taken as the flaps were thicker, new inferior skin margin was also taken due to proximity of firm tissue. Dissection progressed under pectoralis major and then minor muscle. The pectoral muscles were retracted medially the Ron retractor. Level II lefty tissue was included in dissection. The axillary vein was then identified and cleared of overlying fat. First branch of the axillary vein was clamped and divided and tied with 2-0 silk ties. Thoracodorsal nerve was then identified deep to the ligated vein and preserved. The long thoracic nerve was then identified along the lateral edge of the latissimus dorsi on the chest wall and preserved. Intercostobrachial nerve was also identified and preserved. Remaining lefty tissue between these nerves was carefully removed. Borders included latissimus dorsi laterally and chest wall/serratus anterior muscle medially/anteriorly. Taking care to protect the nerves. The wound was irrigated and hemostasis was achieved. Bobbi was also placed for hemostasis. Closed suction drains were brought into the operating field through a separate stab incision and sutured to skin with 3-0 nylon sutures. The medial drain was # 1 that was mainly in the mastectomy area, the lateral drain is #2 and that went into the axillary cavity as well as the inferior mammary area. The wound was closed with interrupted 2-0 Vicryl to the simultaneously followed by a subcuticular layer of 4-0 Monocryl and Steri-Strips. The wound was dressed The patient tolerated procedure well and sent to postanesthesia care unit in stable condition. - Complications none - Admit VTE Documentation VTE Present on Admission: Yes VTE Mechan Device Prophylaxis: SCD's VTE Pharm Prophylaxis ordered?: No Reason prophylaxis not ordered:: Treatment Not Indicated
[2019-08-05] MEDS: 0.9% Saline Lock 10 ML Syringe IV (20:31)
[2019-08-05] MEDS: proMETHazine 25 MG/ML Syringe 6.25 MG IV (20:31)
[2019-08-05] MEDS: Insulin Lispro 100 UNIT/ML INSULN.PEN SC (21:39)
[2019-08-05 21:50] LABS: Bedside Glucose 408 mg/dL (70-110)
[2019-08-06] VITALS (20 sets, daily range): BP systolic 92–153; BP diastolic 34–63; PULSE 71–92; RESP 12–22; TEMP 36.7–37.1; O2SAT 92–100
[2019-08-06] MEDS: 0.9% Saline Lock 10 ML Syringe IV ×4 (02:28→21:00)
[2019-08-06] MEDS: Ondansetron 4 MG/2 ML Vial IV ×2 (02:28→10:41)
[2019-08-06] MEDS: proMETHazine 25 MG/ML Syringe 6.25 MG IV (05:54)
[2019-08-06 06:10] LABS: Bedside Glucose > 500 mg/dL (70-110)
[2019-08-06] MEDS: Insulin Lispro 100 UNIT/ML INSULN.PEN SC ×2 (06:22→06:24)
[2019-08-06 06:28] LABS: Absolute Lymphocyte Count 1.21 X10^3/uL (0.83-4.51); Absolute Neutrophil Count 8.7 X10^3/uL (2.0-7.7); Basophil# 0.02 X10^3/uL; Basophil% 0.2 % (0-1); Hematocrit 33.4 % (37-47); Hemoglobin 10.8 g/dL (12.0-15.0); Lymphocyte # 1.21 X10^3/ul (4.0); Lymphocyte % 11.6 % (19-41); Mean Corp Hgb Conc 32.3 g/dL (32-36); Mean Corpuscular Hgb 31.9 pg (27.0-32.0); Mean Corpuscular Volume 98.5 fL (81-99); Mean Platelet Vol. 11.7 fl (6.2-12.0); Monocyte% 3.8 % (0-10); NRBC Flagged by Analyzer 0 % (0-5); Neutrophil # 8.69 X10^3/uL (2.7-7.7); Neutrophil % 83.6 % (47-70); Platelet Count 190 K/mm3 (150-450); RBC Distribution Width CV 13.3 % (11.6-14.6); RBC Distribution Width SD 47.7 fl (35.1-43.9); Red Blood Count 3.39 M/mm3 (4.2-5.4); White Blood Count 10.4 K/mm3 (4.4-11.0)
[2019-08-06 06:52] LABS: Glucose 686 mg/dL (74-106)
--- NOTE | 2019-08-06 07:49 | PN.SURG_ITS ---
Subjective: Patient's blood sugar was 680 this morning last night was 400, did give patient extra 4 units of insulin plus the scale and will plan to have her place her insulin pump back on with her basal rate. Also consult hospitalist for blood sugar management, will place a Justice due to low urine output and patient is receiving a bolus. - Physical Exam Vitals/I&O's: Vital Signs Temp Pulse Resp BP Pulse Ox 98.7 F 92 18 153/63 H 96 08/06/19 03:15 08/06/19 03:15 08/06/19 03:15 08/06/19 03:15 08/06/19 03:15 Oxygen Delivery Method Room Air Weight: 149 lb 4.047 oz Body Mass Index (BMI) 29.9 Finger Stick Blood Glucose 396 Intake and Output for Last 24 Hours 08/04/19 08/05/19 08/06/19 23:59 23:59 23:59 Intake Total 1440 / 1440 120 / 120 Output Total 40 / 40 565 / 565 Balance 1400 / 1400 -445 / -445 General: Oriented x3, Cooperative, No apparent distress, - - Sleepy Lungs: Normal air movement Cardiovascular: Regular rate Abdomen: Soft, Non Tender, Non-Distended Skin: - - JPs sanguinous and serosanguineous, incision dressed clean dry and intact over the left chest Laboratory Results 08/05/19 09:50: POC Glucose 275 H 08/05/19 21:33: POC Glucose 408 H 08/06/19 06:04: POC Glucose > 500 H* 08/06/19 06:23: WBC 10.4, RBC 3.39 L, Hgb 10.8 L, Hct 33.4 L, MCV 98.5, MCH 31.9, MCHC 32.3, RDW Std Deviation 47.7 H, RDW Coeff of Alex 13.3, Plt Count 190, MPV 11.7, Immature Gran % (Auto) 0.800, Neut % (Auto) 83.6 H, Lymph % (Auto) 11.6 L, [place] % (Auto) 3.8, Eos % (Auto) 0.0, Baso % (Auto) 0.2, Absolute Neuts (auto) 8.7 H, Absolute Lymphs (auto) 1.21, Nucleated RBC % 0 08/06/19 06:23: Glucose 686 H* Current Medications Amlodipine Besylate (Norvasc) 5 mg PO DAILY [facility] Atorvastatin Calcium (Lipitor) 5 mg PO QHS [facility] Last Admin: 08/05/19 21:47 Dose: Not Given Documented by: Hydrochlorothiazide (Hctz) 25 mg PO DAILY [facility] Insulin Aspart (Pump, Basal) 0 unit SC UD [facility] Insulin Human Lispro (Humalog Kwikpen (Bkc)) 0 unit SC ACHS [facility]; Protocol Last Admin: 08/06/19 06:24 Dose: 4 u Documented by: Levothyroxine Sodium (Synthroid) 25 mcg PO DAILY@0600 [facility] Last Admin: 08/06/19 06:00 Dose: Not Given Documented by: Lisinopril (Zestril) 20 mg PO DAILY [facility] Metoprolol Succinate (Toprol Xl (Beta Valorie)) 100 mg PO DAILY [facility] Morphine Sulfate () 2 - 4 mg IV Q2H PRN PRN PRN Reason: Pain Score 1-10/10 Ondansetron HCl (Zofran) 4 mg IV Q6H PRN PRN PRN Reason: NAUSEA/VOMITING Last Admin: 08/06/19 02:28 Dose: 4 mg Documented by: Oxycodone HCl (Oxyir) 5 - 10 mg PO Q4H PRN PRN PRN Reason: Pain Score 6-10/10 Promethazine HCl (Phenergan) 6.25 mg IV Q6H PRN PRN PRN Reason: NAUSEA/VOMITING Last Admin: 08/06/19 05:54 Dose: 6.25 mg Documented by: Ranolazine (Ranexa) 500 mg PO DAILY [facility] Sodium Chloride () 10 - 40 ml IV UD PRN PRN Reason: SALINE FLUSH Last Admin: 08/06/19 05:55 Dose: 10 ml Documented by: Medical Necessity - Tobacco Use Smoking Status: Never smoker Tobacco Use: Non-smoker Assessment/Plan All Active Problems (Last Reviewed 07/27/19 @ 13:50 by Darling Isbell) Disproportion of reconstructed breast (Acute) 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 Patient have some nausea vomiting likely due to her elevated blood sugars did consult hospitalist to help manage this. Patient on a regular diet 2. Patient has low urine output will place a Justice and patient is also receiving a bolus as her creatinine is also elevated on BMP check. 3. Continue JANEE drains to suction 4. We will continue to monitor glucose closely as well as her urine output/creatinine. Amarilis Fernandez M.D. Pager: [phone] [facility] [address] [place] [address], [facility], [address] [place] [address] Office: [phone]
[2019-08-06] MEDS: Lactated Ringers 1,000 ML 999 ML IV (08:37)
[2019-08-06 08:49] LABS: Anion Gap 22 (5-15); BUN 49 mg/dL (7-18); BUN/Creat Ratio 18.5 RATIO (10-20); Calcium,Total 8.7 mg/dL (8.5-10.1); Chloride 98 mmol/L (98-107); Creatinine, Serum 2.65 mg/dL (0.55-1.02); EST Glomerular Filtration Rate 19 mL/min (>60); Est Glom Filt Rate - Afr Amer 23 mL/min (>60); Glucose 695 mg/dL (74-106); Potassium 5.2 mmol/L (3.5-5.1); Sodium Level 133 mmol/L (136-145)
[2019-08-06] MEDS: Insulin Basal Pump SC (08:50)
[2019-08-06 09:06] LABS: Bedside Glucose > 500 mg/dL (70-110)
[2019-08-06 09:06] LABS: Bedside Glucose > 500 mg/dL (70-110)
--- NOTE | 2019-08-06 09:21 | NURSING ---
DR CARPIO HERE ON UNIT. NEW ORDERS RECEIVED DO TO AM LAB RESULTS.
[2019-08-06] MEDS: 0.9% Normal Saline 1,000 ML 999 ML IV ×2 (10:33→11:37)
--- NOTE | 2019-08-06 11:38 | CM.UR ---
Addendum entered by Adrianna Ren 08/06/19 11:42: ACCIDENTLY CLOSED NOTE PRIOR TO FINISHING. THIS IS COMPLETE ASSMT. RN CM Assessment Introduced role of RN CM to patient's . When I asked if it was ok to sit and ask some questions, he said that You can ask but I don't have to answer. This RN did explain that is correct he can choose to decline to answer any question. Patient is sleeping and not able to participate in RN CM Assessment but is agreeable to speak with me. Care providers, pharmacy, and demographics verified. Presentation: Admitted for mastectomy Admit Dx: Breast CA Re-Admit: No Barriers/Issues: None PCP: Celina Dangelo Specialists: Recently seen by Dr. Stanford and Dr. Peñaloza. States lex is in [place] but he can't remember name. [facility] sees a PIPE PULLER locally but couldn't tell me name. I offered name of REBEKAH Lilly but he couldn't confirm. Preferred Pharmacy: [facility] for short term and [employer] mail order for long term acute care registered nurse. Insurance: [employer] and [employer]. Rx Benefit: Yes. When asked if they have any concerns paying for medications he replied, that is none of your business. Explained that we ask in case they have trouble, we can see if we can help. States no, no concerns with that. LNOK: , Nick LW/HPOA: does not have, declines at this time. Living Arrangements: 2 story home but they live on first floor. Denies that patient has any problems getting around the house. She cares for her . 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 DME: Insulin pump DME co: no preference HHC: None SNF: None Goal: Home DC PLAN: Home, no needs. Sharda Ren RN, [facility]. Original Note: RN CM Assessment+ Introduced role of RN CM to patient. Patient is sleeping and able to participate in RN CM Assessment. Care providers, pharmacy, and demographics verified. at bedside. Presentation: Admit Dx: Re-Admit: Barriers/Issues: PCP: Specialists: Preferred Pharmacy: Insurance: Rx Benefit: LNOK: LW/HPOA: Living Arrangements: ADL?s: Transportation: DME: None DME co: HHC: None SNF: None Goal: DC PLAN: Sharda Ren RN, CCM.
[2019-08-06 11:50] LABS: Anion Gap 16 (5-15); BUN 48 mg/dL (7-18); BUN/Creat Ratio 18.8 RATIO (10-20); Calcium,Total 7.9 mg/dL (8.5-10.1); Chloride 105 mmol/L (98-107); Creatinine, Serum 2.55 mg/dL (0.55-1.02); EST Glomerular Filtration Rate 20 mL/min (>60); Est Glom Filt Rate - Afr Amer 24 mL/min (>60); Estimated Creatinine Clearance 20.37 ml/min; Glucose 588 mg/dL (74-106); Potassium 5.2 mmol/L (3.5-5.1); Sodium Level 133 mmol/L (136-145)
[2019-08-06 11:50] LABS: Bedside Glucose 463 mg/dL (70-110)
--- NOTE | 2019-08-06 12:06 | CON.PCM_ITS ---
Reason for Consult Date of Consultation: 08/06/19 Reason for Consultation: Consult requested by Dr. Fernandez for hyperglycemia. History of Present Illness: The patient is a 74 year old F who underwent a left modified radical mastectomy with lymph node dissection on 08/05. Patient is a type I diabetic and was having hyperglycemia last night and into today. Glucose of 686. She received insulin today. Patient normally is on an insulin pump, it was not resumed last night. Today, patient had a + anion gap and later had small acetones. Patient being admitted to the ICU for mgmt of DKA. [] Past Medical History Past Medical History (Chronic Problems): Chronic Problems (Last Updated 08/06/19 @ 10:[address] Amarilis Fernandez MD) Diabetes mellitus (Chronic) Estrogen receptor positive status (ER+) (Chronic) Breast ptosis (Chronic) Stage II Breast asymmetry (Chronic) right breast is larger than the left breast Inversion of left nipple (Chronic) Hyperlipidemia (Chronic) Essential (primary) hypertension (Chronic) Facet arthropathy, lumbar (Chronic) Medical History: Medical History (Last Reviewed 08/06/19 @ 12:[address] Karel Landa, DO) Diabetes mellitus (Chronic) E11.9 Estrogen receptor positive status (ER+) (Chronic) Z17.0 Disproportion of reconstructed breast (Acute) N65.1 Acquired absence of left breast and nipple (Acute) Z90.12 Breast ptosis (Chronic) N64.81 Stage II Breast asymmetry (Chronic) N64.89 right breast is larger than the left breast Inversion of left nipple (Chronic) N64.59 Invasive lobular carcinoma of left breast in female (Acute) C50.912 multifocal Hyperlipidemia (Chronic) E78.5 Essential (primary) hypertension (Chronic) I10 Facet arthropathy, lumbar (Chronic) M47.816 Segmental and somatic dysfunction of pelvic region (Acute) M99.05 Segmental and somatic dysfunction of lumbar region (Acute) M99.03 Type 1 diabetes mellitus E10.9 Back problem M53.9 Breast cancer, left breast Onset Date: ~06/2019 C50.912 Cataracts, bilateral H26.9 Hearing problem H91.90 Kidney disease N28.9 Osteoarthritis M19.90 Osteoporosis M81.0 Vision problems H54.7 Arthritis M19.90 Environmental allergies Z91.09 Hyperthyroidism E05.90 Acute renal failure N17.9 Allergies codeine Adverse Reaction (Verified 08/05/19 09:38) Vomiting hydrocodone Adverse Reaction (Verified 08/05/19 09:38) Vomiting meperidine [From Demerol] Adverse Reaction (Verified 08/05/19 09:38) Vomiting Home Medications: Ambulatory Orders Medication Instructions Recorded Insulin Aspart [Novolog] 1,000 unit CONT INF DAILY 11/09/16 aspirin 81 mg chewable tablet 81 mg PO .qod tab 12/10/17 levothyroxine 25 mcg capsule 25 mcg PO QDAY 12/10/17 simvastatin 10 mg tablet 10 mg PO QHS #90 tab 09/15/18 lisinopril 20 1 tab PO DAILY #90 tab 10/13/18 mg-hydrochlorothiazide 25 mg tablet cholecalciferol (vitamin D3) 25 1,000 unit PO .QOD cap 01/04/19 mcg (1,000 unit) capsule turmeric-turmeric ext-pepper 500 500 mg PO DAILY cap 01/04/19 mg-black pepper extract 3 mg capsule amlodipine 5 mg tablet 5 mg PO DAILY #90 tab 02/24/19 metoprolol succinate 100 mg 100 mg PO DAILY #90 tab 03/21/19 tablet,extended release 24 hr Ranolazine [Ranexa] 500 mg PO DAILY 08/01/19 Surgical History: Surgical History (Last Reviewed 08/06/19 @ 12:[address] Karel Landa DO) History of left breast biopsy Onset Date: ~06/2019 Z98.890 Status post right breast biopsy Z98.890 benign History of left heart catheterization Onset Date: 10/30/06 Z98.890 History of tubal ligation Z98.51 Smoking Status: Never smoker Tobacco Use: Non-smoker - *Family History Maternal Family History: Family History (Last Reviewed 08/06/19 @ 12:[address] Karel Landa DO) Father Myocardial infarction Heart disease Hypertension High cholesterol Mother Osteoporosis Skin cancer Review of Systems Constitutional: Denies: Chills, Fever, Weight Change Eyes: Denies: Blurred vision, Double vision HEENT: Denies: Head Aches, Sinus Congestion, Sinus Drainage Cardiovascular: Denies: Chest Pain, Palpitations Respiratory: Denies: Cough, Shortness of breath at rest, Sputum production Gastrointestinal: Reports: Nausea, Vomiting. Denies: Abdominal Pain Genitourinary: Denies: Dysuria Musculoskeletal: Denies: Joint Pain, Joint Tenderness Skin: Denies: Rash, Wounds Neurological: Denies: Numbness, Tingling, Focal weakness Psychiatric: Denies: Anxiety, Depression Hematologic/ Lymphatic: Denies: Hx of blood clot Comment: All review of systems were negative except as mentioned above in the history of present illness and the other review of systems. - Physical Exam Vitals/I&O's: Vital Signs Temp Pulse Resp BP Pulse Ox 36.9 C 83 16 96/45 L 98 08/06/19 12:00 08/06/19 12:00 08/06/19 12:00 08/06/19 12:00 08/06/19 12:00 Oxygen Delivery Method Room Air Weight: 67.7 kg Body Mass Index (BMI) 29.9 Finger Stick Blood Glucose 463 Intake and Output for Last 24 Hours 08/04/19 08/05/19 08/06/19 23:59 23:59 23:59 Intake Total 1440 / 1440 2126.91 / 2126.91 Output Total 40 / 40 565 / 565 Balance 1400 / 1400 1561.91 / 1561.91 General: Alert, Cooperative, No apparent distress HEENT: Atraumatic, Normocephalic, - - no icterus Oral: Moist Mucosa, No Gingival or Mucosal Lesions/ Ulcerations Neck: No Nodes, Trachea Midline Lungs: Clear to auscultation, Normal air movement Cardiovascular: Regular rate, No murmurs Abdomen: Bowel Sounds Present, Soft, Non Tender Extremities: No edema, No Calf Tenderness Skin: No rashes, No breakdown Musculoskeletal: No Tenderness to Palpation of Joints or Extremities, No Muscle Wasting Neurological: Sensory exam intact to light touch and pain, - - no clonus Psych/Mental Status: Appropriate, Flat Affect Laboratory Results 08/05/19 21:33: POC Glucose 408 H 08/06/19 06:04: POC Glucose > 500 H* 08/06/19 06:23: WBC 10.4, RBC 3.39 L, Hgb 10.8 L, Hct 33.4 L, MCV 98.5, MCH 31.9, MCHC 32.3, RDW Std Deviation 47.7 H, RDW Coeff of Alex 13.3, Plt Count 190, MPV 11.7, Immature Gran % (Auto) 0.800, Neut % (Auto) 83.6 H, Lymph % (Auto) 11.6 L, [place] % (Auto) 3.8, Eos % (Auto) 0.0, Baso % (Auto) 0.2, Absolute Neuts (auto) 8.7 H, Absolute Lymphs (auto) 1.21, Nucleated RBC % 0 08/06/19 06:23: Glucose 686 H* 08/06/19 07:02: POC Glucose > 500 H* 08/06/19 08:18: Sodium 133 L, Potassium 5.2 H, Chloride 98, Carbon Dioxide 13.0 L, Anion Gap 22 H, BUN 49 H, Creatinine 2.65 H, Estim Creat Clear Calc 19.60, Est GFR (MDRD) Af Amer 23 L, Est GFR (MDRD) Non-Af 19 L, BUN/Creatinine Ratio 18.5, Glucose 695 H*, Calcium 8.7 08/06/19 08:48: POC Glucose > 500 H* 08/06/19 11:00: Acetone Level SMALL H 08/06/19 11:00: Sodium 133 L, Potassium 5.2 H, Chloride 105, Carbon Dioxide 12.0 L, Anion Gap 16 H, BUN 48 H, Creatinine 2.55 H, Estim Creat Clear Calc 20.37, Est GFR (MDRD) Af Amer 24 L, Est GFR (MDRD) Non-Af 20 L, BUN/Creatinine Ratio 18.8, Glucose 588 H*, Calcium 7.9 L 08/06/19 11:46: POC Glucose 463 H* Current Medications Acetaminophen (Tylenol) 650 mg PO Q6H PRN PRN PRN Reason: Pain Score 1-10/10 Amlodipine Besylate (Norvasc) 5 mg PO DAILY [facility] Last Admin: 08/06/19 11:15 Dose: Not Given Documented by: Atorvastatin Calcium (Lipitor) 5 mg PO QHS [facility] Last Admin: 08/05/19 21:47 Dose: Not Given Documented by: Dextrose (D50w Syringe) 0 gm IV X1 PRN; Protocol PRN Reason: HYPOGLYCEMIA Hydrochlorothiazide (Hctz) 25 mg PO DAILY [facility] Last Admin: 08/06/19 11:14 Dose: Not Given Documented by: Pantoprazole Sodium 40 mg/ (Sodium Chloride) 110 mls @ 330 mls/hr IV Q24 [facility] Sodium Chloride () 1,000 mls @ 150 mls/hr IV .Q6H40M [facility] Last Admin: 08/06/19 10:35 Dose: Not Given Documented by: Sodium Chloride () 1,000 mls @ 500 mls/hr IV .Q2H [facility] Stop: 08/06/19 12:13 Insulin Human Lispro 100 unit/ (Sodium Chloride) 100 mls @ 6.77 mls/hr IV .[id number] [facility]; Protocol Last Titration: 08/06/19 11:45 Dose: 0.05 units/kg/hr, 3.4 mls/hr Documented by: Levothyroxine Sodium (Synthroid) 25 mcg PO DAILY@0600 [facility] Last Admin: 08/06/19 06:00 Dose: Not Given Documented by: Lisinopril (Zestril) 20 mg PO DAILY [facility] Last Admin: 08/06/19 11:15 Dose: Not Given Documented by: Metoprolol Succinate (Toprol Xl (Beta Valorie)) 100 mg PO DAILY [facility] Last Admin: 08/06/19 11:15 Dose: Not Given Documented by: Morphine Sulfate () 2 - 4 mg IV Q2H PRN PRN PRN Reason: Pain Score 1-10/10 Ondansetron HCl (Zofran) 4 mg IV Q6H PRN PRN PRN Reason: NAUSEA/VOMITING Last Admin: 08/06/19 10:41 Dose: 4 mg Documented by: Oxycodone HCl (Oxyir) 5 - 10 mg PO Q4H PRN PRN PRN Reason: Pain Score 6-10/10 Promethazine HCl (Phenergan) 6.25 mg IV Q6H PRN PRN PRN Reason: NAUSEA/VOMITING Last Admin: 08/06/19 05:54 Dose: 6.25 mg Documented by: Ranolazine (Ranexa) 500 mg PO DAILY [facility] Last Admin: 08/06/19 11:28 Dose: Not Given Documented by: Sodium Chloride () 10 - 40 ml IV UD PRN PRN Reason: SALINE FLUSH Last Admin: 08/06/19 10:42 Dose: 20 ml Documented by: Assessment/Plan All Active Problems (Last Updated 08/06/19 @ 10:[address] Amarilis Fernandez MD) Disproportion of reconstructed breast (Acute) Acquired absence of left breast and nipple (Acute) Invasive lobular carcinoma of left breast in female (Acute) Segmental and somatic dysfunction of pelvic region (Acute) Segmental and somatic dysfunction of lumbar region (Acute) 1. DKA * started on insulin drip and DKA protocol with IVF and BMP checks. * resume insulin pump when she is out of DKA, though there is concern she may not have enough insulin in the pump. If that is the case we will need to see if we can supply that or have her family bring in insulin. * upset at patient being in DKA. He demanded that an department clinician see her in the hospital. I told him the department clinician could not see him here. Patient, however, appeared to be fine with current situation. 2. THOMAS * likely prerenal * IVF * monitor * hold lisinopril * check urine studies 3. Breast Cancer * s/p mastectomy * mgmt per general surgery 4. VTE prophylaxis: mod risk. scds Thank you for the consult. Code Visit Inpatient E&M: 02326 Init Hosp L3
--- NOTE | 2019-08-06 12:33 | NURSING ---
LATE ENTRY - 1015 REPORT CALLED TO BETTY GRANADO RN IN ICU
[2019-08-06] MEDS: 0.9% Normal Saline 1,000 ML 150 ML IV ×2 (12:36→20:59)
[2019-08-06 12:56] LABS: Bedside Glucose 415 mg/dL (70-110)
[2019-08-06 14:46] LABS: Bedside Glucose 360 mg/dL (70-110)
[2019-08-06 14:51] LABS: Bedside Glucose 351 mg/dL (70-110)
[2019-08-06 15:51] LABS: Bedside Glucose 293 mg/dL (70-110)
--- NOTE | 2019-08-06 16:30 | NURSING ---
bull rider notified this, primary RN, that patient is complaining of tenderness at peripheral insertion site. Upon assessment of the site the area surrounding PIV was tender and erythema was noted. IV insulin and 0.9% normal saline infusing through site was placed on hold while PICC line is attempted to bed inserted.
[2019-08-06 17:50] LABS: Bedside Glucose 343 mg/dL (70-110)
[2019-08-06 18:14] LABS: Anion Gap 8 (5-15); BUN 45 mg/dL (7-18); BUN/Creat Ratio 22.4 RATIO (10-20); Calcium,Total 7.8 mg/dL (8.5-10.1); Chloride 110 mmol/L (98-107); Creatinine, Serum 2.01 mg/dL (0.55-1.02); EST Glomerular Filtration Rate 26 mL/min (>60); Est Glom Filt Rate - Afr Amer 31 mL/min (>60); Estimated Creatinine Clearance 25.85 ml/min; Glucose 337 mg/dL (74-106); Potassium 4.7 mmol/L (3.5-5.1); Sodium Level 141 mmol/L (136-145)
--- NOTE | 2019-08-06 18:35 | PCM.PN.BLA ---
Progress Note Patient is much more awake and alert this evening, blood sugars and high 200s/low 300s currently on the insulin drip. Patient is making good urine output patient still denies any pain at the surgical site, JPs are serosanguineous. Creatinine also trended back down to 2 bicarb is back up to 25 from 05/27. We will recheck in the morning. Appreciate ICU and hospitalist help with management of the DKA. STROKE Vital Signs/Narrative: Vital Signs Temp Pulse Resp BP Pulse Ox 08/06/19 17:45 98.0 F 81 13 110/34 L 100 08/06/19 15:33 100 08/06/19 15:00 78 12 105/50 L 100 08/06/19 14:50 82
[2019-08-06 18:38] LABS: Bacteria 0 SEEN /hpf (None Seen); Mucous, Urine 0 SEEN /hpf (<or=2+); Squamous Epithelial Cells - UA 0 SEEN /hpf (5-10); White Blood Cells 0 SEEN /hpf (0-5)
[2019-08-06 18:39] LABS: Glucose, Dipstick 1000 mg/dl (Normal); Ketone-Dipstick 15 mg/dl (Negative); Leukocyte Esterase-Dipstick Negative /ul (Negative); Nitrite-Dipstick Negative (Negative); Occult Blood-Urine 250 /ul (Negative); Protein-Dipstick 15 mg/dl (Negative); Specific Gravity, Urine 1.015 (1.002-1.030); Urine Bilirubin Dipstick Negative (Negative); Urine Clarity Clear (Clear); Urine Urobilinogen Normal (Normal)
[2019-08-06 18:46] LABS: Color, Urine SEE COMMENT BELOW (Yellow)
[2019-08-06 18:48] LABS: Red Blood Cells-Urine 0-5 SEEN /hpf (0-5)
[2019-08-06 18:54] LABS: Urine Sodium 19 mmol/L (Not Establ.)
[2019-08-06 18:55] LABS: Bedside Glucose 294 mg/dL (70-110)
[2019-08-06 20:01] LABS: Bedside Glucose 320 mg/dL (70-110)
[2019-08-06 21:01] LABS: Bedside Glucose 295 mg/dL (70-110)
[2019-08-06 21:19] LABS: Anion Gap 5 (5-15); BUN 45 mg/dL (7-18); BUN/Creat Ratio 23.4 RATIO (10-20); Calcium,Total 7.6 mg/dL (8.5-10.1); Chloride 112 mmol/L (98-107); Creatinine, Serum 1.92 mg/dL (0.55-1.02); EST Glomerular Filtration Rate 27 mL/min (>60); Est Glom Filt Rate - Afr Amer 33 mL/min (>60); Estimated Creatinine Clearance 27.06 ml/min; Glucose 294 mg/dL (74-106); Sodium Level 143 mmol/L (136-145)
--- NOTE | 2019-08-06 22:09 | NURSING ---
Anion gap is closed. Pt has applied her insulin pump at her ordered basal rate of 0.325units/hr. Order to removed NS fluid and insulin after one hour of basal infusion and order pt diet, is applied. Pt will dose herself per her normal orders from home based on her carb intake.
[2019-08-06 22:45] LABS: Bedside Glucose 216 mg/dL (70-110)
[2019-08-06 23:51] LABS: Bedside Glucose 221 mg/dL (70-110)
[2019-08-07] VITALS (16 sets, daily range): BP systolic 102–125; BP diastolic 45–60; PULSE 52–94; RESP 10–19; TEMP 36.3–36.8; O2SAT 94–99
[2019-08-07 05:04] LABS: Absolute Lymphocyte Count 1.48 X10^3/uL (0.83-4.51); Absolute Neutrophil Count 10.7 X10^3/uL (2.0-7.7); Hematocrit 25.5 % (37-47); Hemoglobin 8.4 g/dL (12.0-15.0); Lymphocyte # 1.48 X10^3/ul (4.0); Lymphocyte % 11.2 % (19-41); Mean Corp Hgb Conc 32.9 g/dL (32-36); Mean Corpuscular Hgb 31.5 pg (27.0-32.0); Mean Corpuscular Volume 95.5 fL (81-99); Mean Platelet Vol. 10.4 fl (6.2-12.0); Monocyte# 0.91 X10^3/uL; Monocyte% 6.9 % (0-10); NRBC Flagged by Analyzer 0 % (0-5); Neutrophil # 10.72 X10^3/uL (2.7-7.7); Neutrophil % 81.4 % (47-70); Platelet Count 126 K/mm3 (150-450); RBC Distribution Width CV 13.8 % (11.6-14.6); RBC Distribution Width SD 47.9 fl (35.1-43.9); Red Blood Count 2.67 M/mm3 (4.2-5.4); White Blood Count 13.2 K/mm3 (4.4-11.0)
[2019-08-07 05:17] LABS: Anion Gap 8 (5-15); BUN 43 mg/dL (7-18); BUN/Creat Ratio 25.4 RATIO (10-20); Chloride 110 mmol/L (98-107); Creatinine, Serum 1.69 mg/dL (0.55-1.02); EST Glomerular Filtration Rate 31 mL/min (>60); Est Glom Filt Rate - Afr Amer 38 mL/min (>60); Estimated Creatinine Clearance 31.42 ml/min; Glucose 260 mg/dL (74-106); Potassium 4.3 mmol/L (3.5-5.1); Sodium Level 142 mmol/L (136-145)
--- NOTE | 2019-08-07 06:22 | PN.SURG_ITS ---
Subjective: Patient is awake and alert only complains of little bit of pain/soreness on left inferior chest, JPs are serous, creatinine is down to 1.6, blood sugars are in the mid 200s patient is on her insulin pump was transitioned last night. - Physical Exam Vitals/I&O's: Vital Signs Temp Pulse Resp BP Pulse Ox 98.2 F 85 19 H 123/51 H 99 08/07/19 04:00 08/07/19 06:00 08/07/19 06:00 08/07/19 06:00 08/07/19 06:00 Oxygen Flow Rate (L/min) 2 Oxygen Delivery Method Room Air Weight: 152 lb 8.958 oz Body Mass Index (BMI) 29.9 Finger Stick Blood Glucose 219 Intake and Output for Last 24 Hours 08/05/19 08/06/19 08/07/19 23:59 23:59 23:59 Intake Total 1440 / 1440 4824.99 / 4824.99 120 / 120 Output Total 40 / 40 1430 / 1430 235 / 235 Balance 1400 / 1400 3394.99 / 3394.99 -115 / -115 Laboratory Results 08/06/19 06:23: WBC 10.4, RBC 3.39 L, Hgb 10.8 L, Hct 33.4 L, MCV 98.5, MCH 31.9, MCHC 32.3, RDW Std Deviation 47.7 H, RDW Coeff of Alex 13.3, Plt Count 190, MPV 11.7, Immature Gran % (Auto) 0.800, Neut % (Auto) 83.6 H, Lymph % (Auto) 11.6 L, [place] % (Auto) 3.8, Eos % (Auto) 0.0, Baso % (Auto) 0.2, Absolute Neuts (auto) 8.7 H, Absolute Lymphs (auto) 1.21, Nucleated RBC % 0 08/06/19 06:23: Glucose 686 H* 08/06/19 07:02: POC Glucose > 500 H* 08/06/19 08:18: Sodium 133 L, Potassium 5.2 H, Chloride 98, Carbon Dioxide 13.0 L, Anion Gap 22 H, BUN 49 H, Creatinine 2.65 H, Estim Creat Clear Calc 19.60, Est GFR (MDRD) Af Amer 23 L, Est GFR (MDRD) Non-Af 19 L, BUN/Creatinine Ratio 18.5, Glucose 695 H*, Calcium 8.7 08/06/19 08:48: POC Glucose > 500 H* 08/06/19 11:00: Acetone Level SMALL H 08/06/19 11:00: Sodium 133 L, Potassium 5.2 H, Chloride 105, Carbon Dioxide 12.0 L, Anion Gap 16 H, BUN 48 H, Creatinine 2.55 H, Estim Creat Clear Calc 20.37, Est GFR (MDRD) Af Amer 24 L, Est GFR (MDRD) Non-Af 20 L, BUN/Creatinine Ratio 18.8, Glucose 588 H*, Calcium 7.9 L 08/06/19 11:46: POC Glucose 463 H* 08/06/19 12:48: POC Glucose 415 H 08/06/19 13:45: POC Glucose 360 H 08/06/19 14:45: POC Glucose 351 H 08/06/19 15:44: POC Glucose 293 H 08/06/19 17:42: POC Glucose 343 H 08/06/19 17:45: Sodium 141, Potassium 4.7, Chloride 110 H, Carbon Dioxide 23.0, Anion Gap 8, BUN 45 H, Creatinine 2.01 H, Estim Creat Clear Calc 25.85, Est GFR (MDRD) Af Amer 31 L, Est GFR (MDRD) Non-Af 26 L, BUN/Creatinine Ratio 22.4 H, Glucose 337 H, Calcium 7.8 L 08/06/19 18:20: Eos Smear Total Cells Pending 08/06/19 18:20: Urine Color SEE COMMENT BELOW, Urine Clarity Clear, Urine pH 5.0, Ur Specific [place] 1.015, Urine Protein 15 H, Urine Glucose (UA) 1000 H, Urine Ketones 15 H, Urine Occult Blood 250 H, Urine Nitrite Negative, Urine Bilirubin Negative, Urine Urobilinogen Normal, Ur Leukocyte Esterase Negative, Urine RBC 0-5 SEEN, Urine WBC 0 SEEN, Ur Squamous Epith Cells 0 SEEN, Urine Bacteria 0 SEEN, Urine Mucus 0 SEEN 08/06/19 18:20: Urine Creatinine 95.60 08/06/19 18:20: Ur Random Sodium 19 08/06/19 18:51: POC Glucose 294 H 08/06/19 19:45: POC Glucose 320 H 08/06/19 20:45: Sodium 143, Potassium 4.0, Chloride 112 H, Carbon Dioxide 26.0, Anion Gap 5, BUN 45 H, Creatinine 1.92 H, Estim Creat Clear Calc 27.06, Est GFR (MDRD) Af Amer 33 L, Est GFR (MDRD) Non-Af 27 L, BUN/Creatinine Ratio 23.4 H, Glucose 294 H, Calcium 7.6 L 08/06/19 20:50: POC Glucose 295 H 08/06/19 22:37: POC Glucose 216 H 08/06/19 23:44: POC Glucose 221 H 08/07/19 04:50: WBC 13.2 H, RBC 2.67 L, Hgb 8.4 L, Hct 25.5 L, MCV 95.5, MCH 31.5, MCHC 32.9, RDW Std Deviation 47.9 H, RDW Coeff of Alex 13.8, Plt Count 126 L, MPV 10.4, Immature Gran % (Auto) 0.500, Neut % (Auto) 81.4 H, Lymph % (Auto) 11.2 L, [place] % (Auto) 6.9, Eos % (Auto) 0.0, Baso % (Auto) 0.0, Absolute Neuts (auto) 10.7 H, Absolute Lymphs (auto) 1.48, Nucleated RBC % 0 08/07/19 04:50: Sodium 142, Potassium 4.3, Chloride 110 H, Carbon Dioxide 24.0, Anion Gap 8, BUN 43 H, Creatinine 1.69 H, Estim Creat Clear Calc 31.42, Est GFR (MDRD) Af Amer 38 L, Est GFR (MDRD) Non-Af 31 L, BUN/Creatinine Ratio 25.4 H, Glucose 260 H, Calcium 8.0 L Current Medications Acetaminophen (Tylenol) 650 mg PO Q6H PRN PRN PRN Reason: Pain Score 1-10/10 Amlodipine Besylate (Norvasc) 5 mg PO DAILY [facility] Last Admin: 08/06/19 11:15 Dose: Not Given Documented by: Atorvastatin Calcium (Lipitor) 5 mg PO QHS [facility] Last Admin: 08/06/19 21:04 Dose: Not Given Documented by: Dextrose (D50w Syringe) 0 gm IV X1 PRN; Protocol PRN Reason: HYPOGLYCEMIA Hydrochlorothiazide (Hctz) 25 mg PO DAILY [facility] Last Admin: 08/06/19 11:14 Dose: Not Given Documented by: Pantoprazole Sodium 40 mg/ (Sodium Chloride) 110 mls @ 330 mls/hr IV Q24 [facility] Last Infusion: 08/06/19 19:07 Dose: Infused Documented by: Insulin Human Lispro 100 unit/ (Sodium Chloride) 100 mls @ 6.77 mls/hr IV .[id number] [facility]; Protocol Last Admin: 08/07/19 05:36 Dose: Not Given Documented by: Levothyroxine Sodium (Synthroid) 25 mcg PO DAILY@0600 [facility] Last Admin: 08/06/19 06:00 Dose: Not Given Documented by: Lisinopril (Zestril) 20 mg PO DAILY [facility] Last Admin: 08/06/19 11:15 Dose: Not Given Documented by: Metoprolol Succinate (Toprol Xl (Beta Valorie)) 100 mg PO DAILY [facility] Last Admin: 08/06/19 11:15 Dose: Not Given Documented by: Morphine Sulfate () 2 - 4 mg IV Q2H PRN PRN PRN Reason: Pain Score 1-10/10 Nutritional Formula (Lactose Free) (Glucerna Shake) 120 ml PO 4X/DAY [facility] Ondansetron HCl (Zofran) 4 mg IV Q6H PRN PRN PRN Reason: NAUSEA/VOMITING Last Admin: 08/06/19 10:41 Dose: 4 mg Documented by: Oxycodone HCl (Oxyir) 2.5 - 10 mg PO Q4H PRN PRN PRN Reason: Pain Score 6-10/10 Promethazine HCl (Phenergan) 6.25 mg IV Q6H PRN PRN PRN Reason: NAUSEA/VOMITING Last Admin: 08/06/19 05:54 Dose: 6.25 mg Documented by: Ranolazine (Ranexa) 500 mg PO DAILY [facility] Last Admin: 08/06/19 11:28 Dose: Not Given Documented by: Sodium Chloride () 10 - 40 ml IV UD PRN PRN Reason: SALINE FLUSH Last Admin: 08/06/19 21:00 Dose: 20 ml Documented by: Medical Necessity - Tobacco Use Smoking Status: Never smoker Tobacco Use: Non-smoker Assessment/Plan All Active Problems (Last Reviewed 08/06/19 @ 12:[address] 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 Patient is back on her diabetic diet 2. Patient's DKA is resolving with bicarb back up to 26, blood sugars in the mid 200s patient is back on her insulin pump. 3. Continue JANEE drains to suction?serous 4. Justice for I's and O's, creatinine is improving to 1.6 5. Out of bed to chair/ambulate. Amarilis Fernandez M.D. Pager: [phone] [facility] [address] [place] [address], [facility], [address] [place] [address] Office: [phone]
[2019-08-07] MEDS: Levothyroxine 25 MCG TABLET PO (06:27)
[2019-08-07 06:36] LABS: Bedside Glucose 196 mg/dL (70-110)
[2019-08-07] MEDS: Lactated Ringers 1,000 ML 75 ML IV (06:51)
[2019-08-07] MEDS: oxyCODONE 5 MG Tablet PO ×2 (07:21→13:03)
--- NOTE | 2019-08-07 07:58 | PCM.PN.HOSP ---
Reason for Visit: follow up DKA Subjective: feels tired. some discomfort at surgical site. Vitals/I&O's: Vital Signs Temp Pulse Resp BP Pulse Ox 36.8 C 83 13 122/50 H 98 08/07/19 04:00 08/07/19 07:00 08/07/19 07:00 08/07/19 07:00 08/07/19 07:00 Oxygen Flow Rate (L/min) 2 Oxygen Delivery Method Room Air Weight: 69.2 kg Body Mass Index (BMI) 29.9 Finger Stick Blood Glucose 219 Intake and Output for Last 24 Hours 08/05/19 08/06/19 08/07/19 23:59 23:59 23:59 Intake Total 1440 / 1440 4824.99 / 4824.99 120 / 120 Output Total 40 / 40 1430 / 1430 235 / 235 Balance 1400 / 1400 3394.99 / 3394.99 -115 / -115 General: Alert, No apparent distress HEENT: Atraumatic, Normocephalic Oral: Moist Mucosa, No Gingival or Mucosal Lesions/ Ulcerations Neck: No Nodes, Trachea Midline Lungs: Clear to auscultation, Normal air movement, No rhonchi, No wheeze, No rales Cardiovascular: Regular rate, Regular Rhythm, Normal S1, Normal S2, No murmurs Abdomen: Bowel Sounds Present, Soft, Non Tender, Non-Distended, No Hepato-splenomegaly Extremities: No edema, No Calf Tenderness Skin: No rashes, No breakdown Psych/Mental Status: Appropriate, Flat Affect Laboratory Results 08/06/19 07:02: POC Glucose > 500 H* 08/06/19 08:18: Sodium 133 L, Potassium 5.2 H, Chloride 98, Carbon Dioxide 13.0 L, Anion Gap 22 H, BUN 49 H, Creatinine 2.65 H, Estim Creat Clear Calc 19.60, Est GFR (MDRD) Af Amer 23 L, Est GFR (MDRD) Non-Af 19 L, BUN/Creatinine Ratio 18.5, Glucose 695 H*, Calcium 8.7 08/06/19 08:48: POC Glucose > 500 H* 08/06/19 11:00: Acetone Level SMALL H 08/06/19 11:00: Sodium 133 L, Potassium 5.2 H, Chloride 105, Carbon Dioxide 12.0 L, Anion Gap 16 H, BUN 48 H, Creatinine 2.55 H, Estim Creat Clear Calc 20.37, Est GFR (MDRD) Af Amer 24 L, Est GFR (MDRD) Non-Af 20 L, BUN/Creatinine Ratio 18.8, Glucose 588 H*, Calcium 7.9 L 08/06/19 11:46: POC Glucose 463 H* 08/06/19 12:48: POC Glucose 415 H 08/06/19 13:45: POC Glucose 360 H 08/06/19 14:45: POC Glucose 351 H 08/06/19 15:44: POC Glucose 293 H 08/06/19 17:42: POC Glucose 343 H 08/06/19 17:45: Sodium 141, Potassium 4.7, Chloride 110 H, Carbon Dioxide 23.0, Anion Gap 8, BUN 45 H, Creatinine 2.01 H, Estim Creat Clear Calc 25.85, Est GFR (MDRD) Af Amer 31 L, Est GFR (MDRD) Non-Af 26 L, BUN/Creatinine Ratio 22.4 H, Glucose 337 H, Calcium 7.8 L 08/06/19 18:20: Eos Smear Total Cells Pending 08/06/19 18:20: Urine Color SEE COMMENT BELOW, Urine Clarity Clear, Urine pH 5.0, Ur Specific [place] 1.015, Urine Protein 15 H, Urine Glucose (UA) 1000 H, Urine Ketones 15 H, Urine Occult Blood 250 H, Urine Nitrite Negative, Urine Bilirubin Negative, Urine Urobilinogen Normal, Ur Leukocyte Esterase Negative, Urine RBC 0-5 SEEN, Urine WBC 0 SEEN, Ur Squamous Epith Cells 0 SEEN, Urine Bacteria 0 SEEN, Urine Mucus 0 SEEN 08/06/19 18:20: Urine Creatinine 95.60 08/06/19 18:20: Ur Random Sodium 19 08/06/19 18:51: POC Glucose 294 H 08/06/19 19:45: POC Glucose 320 H 08/06/19 20:45: Sodium 143, Potassium 4.0, Chloride 112 H, Carbon Dioxide 26.0, Anion Gap 5, BUN 45 H, Creatinine 1.92 H, Estim Creat Clear Calc 27.06, Est GFR (MDRD) Af Amer 33 L, Est GFR (MDRD) Non-Af 27 L, BUN/Creatinine Ratio 23.4 H, Glucose 294 H, Calcium 7.6 L 08/06/19 20:50: POC Glucose 295 H 08/06/19 22:37: POC Glucose 216 H 08/06/19 23:44: POC Glucose 221 H 08/07/19 04:50: WBC 13.2 H, RBC 2.67 L, Hgb 8.4 L, Hct 25.5 L, MCV 95.5, MCH 31.5, MCHC 32.9, RDW Std Deviation 47.9 H, RDW Coeff of Alex 13.8, Plt Count 126 L, MPV 10.4, Immature Gran % (Auto) 0.500, Neut % (Auto) 81.4 H, Lymph % (Auto) 11.2 L, [place] % (Auto) 6.9, Eos % (Auto) 0.0, Baso % (Auto) 0.0, Absolute Neuts (auto) 10.7 H, Absolute Lymphs (auto) 1.48, Nucleated RBC % 0 08/07/19 04:50: Sodium 142, Potassium 4.3, Chloride 110 H, Carbon Dioxide 24.0, Anion Gap 8, BUN 43 H, Creatinine 1.69 H, Estim Creat Clear Calc 31.42, Est GFR (MDRD) Af Amer 38 L, Est GFR (MDRD) Non-Af 31 L, BUN/Creatinine Ratio 25.4 H, Glucose 260 H, Calcium 8.0 L 08/07/19 06:27: POC Glucose 196 H Current Medications Acetaminophen (Tylenol) 650 mg PO Q6H PRN PRN PRN Reason: Pain Score 1-10/10 Amlodipine Besylate (Norvasc) 5 mg PO DAILY [facility] Last Admin: 08/06/19 11:15 Dose: Not Given Documented by: Atorvastatin Calcium (Lipitor) 5 mg PO QHS [facility] Last Admin: 08/06/19 21:04 Dose: Not Given Documented by: Dextrose (D50w Syringe) 0 gm IV X1 PRN; Protocol PRN Reason: HYPOGLYCEMIA Hydrochlorothiazide (Hctz) 25 mg PO DAILY [facility] Last Admin: 08/06/19 11:14 Dose: Not Given Documented by: Pantoprazole Sodium 40 mg/ (Sodium Chloride) 110 mls @ 330 mls/hr IV Q24 [facility] Last Infusion: 08/06/19 19:07 Dose: Infused Documented by: Insulin Human Lispro 100 unit/ (Sodium Chloride) 100 mls @ 6.77 mls/hr IV .[id number] [facility]; Protocol Last Admin: 08/07/19 05:36 Dose: Not Given Documented by: Lactated Ringer's () 1,000 mls @ 75 mls/hr IV .[id number] [facility] Last Admin: 08/07/19 06:51 Dose: 75 mls/hr Documented by: Levothyroxine Sodium (Synthroid) 25 mcg PO DAILY@0600 [facility] Last Admin: 08/07/19 06:27 Dose: 25 mcg Documented by: Lisinopril (Zestril) 20 mg PO DAILY [facility] Last Admin: 08/06/19 11:15 Dose: Not Given Documented by: Metoprolol Succinate (Toprol Xl (Beta Valorie)) 100 mg PO DAILY [facility] Last Admin: 08/06/19 11:15 Dose: Not Given Documented by: Morphine Sulfate () 2 - 4 mg IV Q2H PRN PRN PRN Reason: Pain Score 1-10/10 Nutritional Formula (Lactose Free) (Glucerna Shake) 120 ml PO 4X/DAY [facility] Ondansetron HCl (Zofran) 4 mg IV Q6H PRN PRN PRN Reason: NAUSEA/VOMITING Last Admin: 08/06/19 10:41 Dose: 4 mg Documented by: Oxycodone HCl (Oxyir) 2.5 - 10 mg PO Q4H PRN PRN PRN Reason: Pain Score 6-10/10 Last Admin: 08/07/19 07:21 Dose: 2.5 mg Documented by: Promethazine HCl (Phenergan) 6.25 mg IV Q6H PRN PRN PRN Reason: NAUSEA/VOMITING Last Admin: 08/06/19 05:54 Dose: 6.25 mg Documented by: Ranolazine (Ranexa) 500 mg PO DAILY [facility] Last Admin: 08/06/19 11:28 Dose: Not Given Documented by: Sodium Chloride () 10 - 40 ml IV UD PRN PRN Reason: SALINE FLUSH Last Admin: 08/06/19 21:00 Dose: 20 ml Documented by: STROKE Vital Signs/Narrative: Vital Signs Temp Pulse Resp BP Pulse Ox 08/07/19 07:00 83 13 122/50 H 98 08/07/19 06:00 85 19 H 123/51 H 99 08/07/19 05:00 79 13 119/51 L 99 08/07/19 04:00 36.8 C 72 10 L 116/51 L 96 Medical Necessity - Tobacco Use Smoking Status: Never smoker Tobacco Use: Non-smoker Assessment/Plan All Active Problems (Last Reviewed 08/06/19 @ 12:[address] 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 DKA resolved. resumed on insulin pump. to bring in additional insulin to keep her pump full 2. THOMAS prerenal, FENAa 0.27% IVF, could heplock if eating and drinking well. monitor hold lisinopril and HCTZ, BP stable at this time. 3. Breast Cancer s/p mastectomy mgmt per general surgery 4. VTE prophylaxis: mod risk. scds Will transfer out of ICU. Medically stable for discharged with outpt follow up with PCP and endocrinology. Code Visit Inpatient E&M: 26566 Subs Hosp L2
[2019-08-07 08:46] LABS: Bedside Glucose 243 mg/dL (70-110)
[2019-08-07] MEDS: Glucerna Shake 120 ML LIQUID PO ×3 (10:47→22:00)
[2019-08-07 10:56] LABS: Bedside Glucose 345 mg/dL (70-110)
[2019-08-07 13:06] LABS: Bedside Glucose 327 mg/dL (70-110)
[2019-08-07] MEDS: Ranolazine 500 MG Tablet PO (15:07)
[2019-08-07 15:11] LABS: Bedside Glucose 288 mg/dL (70-110)
[2019-08-07 17:55] LABS: Bedside Glucose 249 mg/dL (70-110)
[2019-08-07 22:25] LABS: Bedside Glucose 225 mg/dL (70-110)
[2019-08-07] MEDS: Atorvastatin Calcium 10 MG Tablet 5 MG PO (23:33)
[2019-08-07] MEDS: Lactated Ringers 1,000 ML 40 ML IV (23:43)
[2019-08-08 02:00] VITALS: BP 105/50; PULSE 79; RESP 16; TEMP 36.7; O2SAT 92
[2019-08-08] MEDS: Levothyroxine 25 MCG TABLET PO (06:16)
[2019-08-08 06:22] LABS: Absolute Lymphocyte Count 2.07 X10^3/uL (0.83-4.51); Absolute Neutrophil Count 4.9 X10^3/uL (2.0-7.7); Basophil# 0.01 X10^3/uL; Basophil% 0.1 % (0-1); Eosinophil# 0.04 X10^3/uL; Eosinophils% 0.5 % (0-5); Hematocrit 25.2 % (37-47); Hemoglobin 8.3 g/dL (12.0-15.0); Lymphocyte # 2.07 X10^3/ul (4.0); Mean Corp Hgb Conc 32.9 g/dL (32-36); Mean Corpuscular Hgb 31.7 pg (27.0-32.0); Mean Corpuscular Volume 96.2 fL (81-99); Mean Platelet Vol. 10.8 fl (6.2-12.0); Monocyte# 0.59 X10^3/uL; Monocyte% 7.7 % (0-10); NRBC Flagged by Analyzer 0 % (0-5); Neutrophil # 4.92 X10^3/uL (2.7-7.7); Neutrophil % 64.3 % (47-70); POSITIVE COUNT YES; Platelet Count 87 K/mm3 (150-450); RBC Distribution Width CV 13.6 % (11.6-14.6); RBC Distribution Width SD 47.8 fl (35.1-43.9); Red Blood Count 2.62 M/mm3 (4.2-5.4); White Blood Count 7.7 K/mm3 (4.4-11.0)
[2019-08-08 06:46] LABS: Anion Gap 5 (5-15); BUN 29 mg/dL (7-18); BUN/Creat Ratio 23.8 RATIO (10-20); Calcium,Total 8.5 mg/dL (8.5-10.1); Chloride 108 mmol/L (98-107); Creatinine, Serum 1.22 mg/dL (0.55-1.02); EST Glomerular Filtration Rate 46 mL/min (>60); Est Glom Filt Rate - Afr Amer 55 mL/min (>60); Estimated Creatinine Clearance 44.85 ml/min; Glucose 135 mg/dL (74-106); Potassium 4.1 mmol/L (3.5-5.1); Sodium Level 141 mmol/L (136-145)
[2019-08-08 07:16] LABS: Bedside Glucose 176 mg/dL (70-110)
[2019-08-08 07:27] VITALS: O2SAT 92
[2019-08-08 07:36] LABS: Bedside Glucose 297 mg/dL (70-110)
[2019-08-08 07:36] LABS: Bedside Glucose 304 mg/dL (70-110)
[2019-08-08 08:00] VITALS: BP 135/61; PULSE 90; RESP 16; TEMP 36.8; O2SAT 94
--- NOTE | 2019-08-08 08:37 | PN.SURG_ITS ---
Subjective: Patient tolerating diet, walking the halls, white blood cell count within normal range, creatinine is back down to baseline 1.22, blood sugars controlled with patient's insulin pump - Physical Exam Vitals/I&O's: Vital Signs Temp Pulse Resp BP Pulse Ox 98.3 F 90 16 135/61 H 94 08/08/19 08:00 08/08/19 08:00 08/08/19 08:00 08/08/19 08:00 08/08/19 08:00 Oxygen Flow Rate (L/min) 2 Oxygen Delivery Method Room Air Weight: 157 lb 3.2 oz Body Mass Index (BMI) 29.9 Finger Stick Blood Glucose 219 Intake and Output for Last 24 Hours 08/06/19 08/07/19 08/08/19 23:59 23:59 23:59 Intake Total 4824.99 / 4824.99 1956.08 / 1956.08 655.33 / 655.33 Output Total 1430 / 1430 965 / 965 425 / 425 Balance 3394.99 / 3394.99 991.08 / 991.08 230.33 / 230.33 General: Alert, Oriented x3, Cooperative, No apparent distress HEENT: Atraumatic Lungs: Normal air movement Cardiovascular: Regular rate Abdomen: Soft, Non Tender, Non-Distended Skin: - - Left chest incision clean dry and intact, JPs #1 serosanguineous, #2 serous Neurological: Cranial nerves II-XII grossly intact Laboratory Results 08/05/19 16:31: POC Glucose 297 H 08/05/19 16:33: POC Glucose 304 H 08/07/19 08:36: POC Glucose 243 H 08/07/19 10:43: POC Glucose 345 H 08/07/19 12:52: POC Glucose 327 H 08/07/19 15:04: POC Glucose 288 H 08/07/19 17:51: POC Glucose 249 H 08/07/19 20:46: POC Glucose 225 H 08/08/19 06:00: WBC 7.7, RBC 2.62 L, Hgb 8.3 L, Hct 25.2 L, MCV 96.2, MCH 31.7, MCHC 32.9, RDW Std Deviation 47.8 H, RDW Coeff of Alex 13.6, Plt Count 87 L, MPV 10.8, Immature Gran % (Auto) 0.400, Neut % (Auto) 64.3, Lymph % (Auto) 27.0, [place] % (Auto) 7.7, Eos % (Auto) 0.5, Baso % (Auto) 0.1, Absolute Neuts (auto) 4.9, Absolute Lymphs (auto) 2.07, Nucleated RBC % 0 08/08/19 06:00: Sodium 141, Potassium 4.1, Chloride 108 H, Carbon Dioxide 28.0, Anion Gap 5, BUN 29 H, Creatinine 1.22 H, Estim Creat Clear Calc 44.85, Est GFR (MDRD) Af Amer 55 L, Est GFR (MDRD) Non-Af 46 L, BUN/Creatinine Ratio 23.8 H, Glucose 135 H, Calcium 8.5 08/08/19 07:09: POC Glucose 176 H Current Medications Acetaminophen (Tylenol) 650 mg PO Q6H PRN PRN PRN Reason: Pain Score 1-10/10 Amlodipine Besylate (Norvasc) 5 mg PO DAILY [facility] Last Admin: 08/07/19 09:23 Dose: Not Given Documented by: Atorvastatin Calcium (Lipitor) 5 mg PO QHS [facility] Last Admin: 08/07/19 23:33 Dose: 5 mg Documented by: Dextrose (D50w Syringe) 0 gm IV X1 PRN; Protocol PRN Reason: HYPOGLYCEMIA Levothyroxine Sodium (Synthroid) 25 mcg PO DAILY@0600 [facility] Last Admin: 08/08/19 06:16 Dose: 25 mcg Documented by: Metoprolol Succinate (Toprol Xl (Beta Valorie)) 100 mg PO DAILY [facility] Last Admin: 08/07/19 09:24 Dose: Not Given Documented by: Morphine Sulfate () 2 - 4 mg IV Q2H PRN PRN PRN Reason: Pain Score 1-10/10 Nutritional Formula (Lactose Free) (Glucerna Shake) 120 ml PO 4X/DAY [facility] Last Admin: 08/07/19 22:00 Dose: 120 ml Documented by: Ondansetron HCl (Zofran) 4 mg IV Q6H PRN PRN PRN Reason: NAUSEA/VOMITING Last Admin: 08/06/19 10:41 Dose: 4 mg Documented by: Oxycodone HCl (Oxyir) 2.5 - 10 mg PO Q4H PRN PRN PRN Reason: Pain Score 6-10/10 Last Admin: 08/07/19 13:03 Dose: 2.5 mg Documented by: Promethazine HCl (Phenergan) 6.25 mg IV Q6H PRN PRN PRN Reason: NAUSEA/VOMITING Last Admin: 08/06/19 05:54 Dose: 6.25 mg Documented by: Ranolazine (Ranexa) 500 mg PO DAILY [facility] Last Admin: 08/07/19 15:07 Dose: 500 mg Documented by: Sodium Chloride () 10 - 40 ml IV UD PRN PRN Reason: SALINE FLUSH Last Admin: 08/06/19 21:00 Dose: 20 ml Documented by: Medical Necessity - Tobacco Use Smoking Status: Never smoker Tobacco Use: Non-smoker Assessment/Plan All Active Problems (Last Reviewed 08/06/19 @ 12:[address] Karel Landa, DO) Disproportion of reconstructed breast (Acute) Acquired absence of left breast and nipple (Acute) Invasive lobular carcinoma of left breast in female (Acute) Segmental and somatic dysfunction of pelvic region (Acute) Segmental and somatic dysfunction of lumbar region (Acute) 74-year-old female status post left mastectomy and axillary lymph node dissection postop day 3, DKA?resolved 1. Patient is back on her diabetic diet 2. Patient's blood sugars are being controlled with her insulin pump. 3. Continue JANEE drains to suction?serous?we will check for home health 4. Patient's creatinine is back down to baseline at 1.22 5. Continue out of bed to chair/ambulate. Likely plan to DC today. Amarilis Fernandez M.D. Pager: [phone] [facility] [address] [place] [address], [address] [place] [address] Office: [phone]
[2019-08-08 08:38] VITALS: PULSE 90
[2019-08-08] MEDS: amLODIPine 5 MG Tablet PO (08:38)
[2019-08-08] MEDS: Metoprolol(XL)Succ 100 MG Tablet PO (08:38)
[2019-08-08] MEDS: Ranolazine 500 MG Tablet PO (08:38)
[2019-08-08] MEDS: Glucerna Shake 120 ML LIQUID PO ×2 (08:40→15:08)
--- NOTE | 2019-08-08 10:08 | PN_ITS ---
Reason for Visit: Follow-up diabetes mellitus type 2 with complications including DKA Subjective: Patient is a 74-year-old lady with diagnosis of left invasive lobular breast cancer who underwent Left modified radical Mastectomy with axillary lymph node dissection on 08/05/2019. Patient postoperative period was complicated by DKA h ospitalist service was consulted to assist with management Objective: GENERAL: cooperative HEENT: Atraumatic; EYES; Anicteric, Normal Conjunctiva NECK; supple, normal thyroid, RESPIRATORY: Diminished to auscultation CARDIOVASCULAR: Regular S1 S2, GI: soft, normoactive bowel sounds, : No Renal angle tenderness; EXTREMITIES: No edema, no clubbing, MUSCULOSKELETAL: no muscle waisting NEURO: Awake; no lateralizing signs. SKIN: No Rash PSYCH; Flat affect Vitals/I&O's: Vital Signs Temp Pulse Resp BP Pulse Ox 98.3 F 90 16 135/61 H 94 08/08/19 08:00 08/08/19 08:38 08/08/19 08:00 08/08/19 08:00 08/08/19 08:00 Oxygen Flow Rate (L/min) 2 Oxygen Delivery Method Room Air Weight: 71.305 kg Body Mass Index (BMI) 29.9 Finger Stick Blood Glucose 219 Intake and Output for Last 24 Hours 08/06/19 08/07/19 08/08/19 23:59 23:59 23:59 Intake Total 4824.99 / 4824.99 1956.08 / 1956.08 655.33 / 655.33 Output Total 1430 / 1430 965 / 965 425 / 425 Balance 3394.99 / 3394.99 991.08 / 991.08 230.33 / 230.33 Laboratory Results 08/05/19 16:31: POC Glucose 297 H 08/05/19 16:33: POC Glucose 304 H 08/07/19 10:43: POC Glucose 345 H 08/07/19 12:52: POC Glucose 327 H 08/07/19 15:04: POC Glucose 288 H 08/07/19 17:51: POC Glucose 249 H 08/07/19 20:46: POC Glucose 225 H 08/08/19 06:00: WBC 7.7, RBC 2.62 L, Hgb 8.3 L, Hct 25.2 L, MCV 96.2, MCH 31.7, MCHC 32.9, RDW Std Deviation 47.8 H, RDW Coeff of Alex 13.6, Plt Count 87 L, MPV 10.8, Immature Gran % (Auto) 0.400, Neut % (Auto) 64.3, Lymph % (Auto) 27.0, M patrice % (Auto) 7.7, Eos % (Auto) 0.5, Baso % (Auto) 0.1, Absolute Neuts (auto) 4.9, Absolute Lymphs (auto) 2.07, Nucleated RBC % 0 08/08/19 06:00: Sodium 141, Potassium 4.1, Chloride 108 H, Carbon Dioxide 28.0, Anion Gap 5, BUN 29 H, Creatinine 1.22 H, Estim Creat Clear Calc 44.85, Est GFR (MDRD) Af Amer 55 L, Est GFR (MDRD) Non-Af 46 L, BUN/Creatinine Ratio 23.8 H, Glucose 135 H, Calcium 8.5 08/08/19 07:09: POC Glucose 176 H Current Medications Acetaminophen (Tylenol) 650 mg PO Q6H PRN PRN PRN Reason: Pain Score 1-10/10 Amlodipine Besylate (Norvasc) 5 mg PO DAILY [facility] Last Admin: 08/08/19 08:38 Dose: 5 mg Documented by: Atorvastatin Calcium (Lipitor) 5 mg PO QHS [facility] Last Admin: 08/07/19 23:33 Dose: 5 mg Documented by: Dextrose (D50w Syringe) 0 gm IV X1 PRN; Protocol PRN Reason: HYPOGLYCEMIA Docusate Sodium (Colace) 100 mg PO DAILY [facility] Levothyroxine Sodium (Synthroid) 25 mcg PO DAILY@0600 [facility] Last Admin: 08/08/19 06:16 Dose: 25 mcg Documented by: Metoprolol Succinate (Toprol Xl (Beta Valorie)) 100 mg PO DAILY [facility] Last Admin: 08/08/19 08:38 Dose: 100 mg Documented by: Morphine Sulfate () 2 - 4 mg IV Q2H PRN PRN PRN Reason: Pain Score 1-10/10 Nutritional Formula (Lactose Free) (Glucerna Shake) 120 ml PO 4X/DAY [facility] Last Admin: 08/08/19 08:40 Dose: 120 ml Documented by: Ondansetron HCl (Zofran) 4 mg IV Q6H PRN PRN PRN Reason: NAUSEA/VOMITING Last Admin: 08/06/19 10:41 Dose: 4 mg Documented by: Oxycodone HCl (Oxyir) 2.5 - 10 mg PO Q4H PRN PRN PRN Reason: Pain Score 6-10/10 Last Admin: 08/07/19 13:03 Dose: 2.5 mg Documented by: Promethazine HCl (Phenergan) 6.25 mg IV Q6H PRN PRN PRN Reason: NAUSEA/VOMITING Last Admin: 08/06/19 05:54 Dose: 6.25 mg Documented by: Ranolazine (Ranexa) 500 mg PO DAILY [facility] Last Admin: 08/08/19 08:38 Dose: 500 mg Documented by: Sodium Chloride () 10 - 40 ml IV UD PRN PRN Reason: SALINE FLUSH Last Admin: 08/06/19 21:00 Dose: 20 ml Documented by: STROKE Vital Signs/Narrative: Vital Signs Temp Pulse Resp BP Pulse Ox 08/08/19 08:38 90 08/08/19 08:00 98.3 F 90 16 135/61 H 94 08/08/19 07:27 92 Medical Necessity - Tobacco Use Smoking Status: Never smoker Tobacco Use: Non-smoker Assessment/Plan All Active Problems (Last Reviewed 08/06/19 @ 12:[address] Karel Landa, DO) Disproportion of reconstructed breast (Acute) Acquired absence of left breast and nipple (Acute) Invasive lobular carcinoma of left breast in female (Acute) Segmental and somatic dysfunction of pelvic region (Acute) Segmental and somatic dysfunction of lumbar region (Acute) Patient is a 74-year-old lady with diagnosis of left invasive lobular breast cancer who underwent Left modified radical Mastectomy with axillary lymph node dissection on 08/05/2019. Patient postoperative period was complicated by DKA hospitalist service was consulted to assist with management 1. Status post Left modified radical Mastectomy with axillary lymph node dissection on 08/05/2019 to Ramandeep ?Postoperative orders regarding patient surgery deferred to primary service 2. Diabetes mellitus type 2 patient is on insulin pump ?Patient went into DKA which was managed appropriately DKA resolved resumed insulin pump 3. Hypertension ~ blood pressure controlled, home medications continued with dose adjustment as needed 4. Dyslipidemia ~patient is on statin therapy, continued at home dose 5. Hypothyroidism ~patient is on levothyroxine home dose continued 6. DVT prophylaxis ?With with patient underlying breast cancer ideally patient needs to be on either heparin or low molecular weight heparin however given patient low platelet count of 87 avoided the use of chemoprophylaxis instead used SCDs 7. Anemia ?Suspected to be secondary to acute blood loss anemia following surgery monitoring H&H no indication for blood transfusion at this point 8. Thrombocytopenia patient has had a precipitous drop in her platelet count from 190 on 08/06/2019 to 87 on 08/08/2019 as stated above will avoid all heparin related products Code Visit Inpatient E&M: 62769 Subs Hosp L2
[2019-08-08] MEDS: Docusate Sodium 100 MG Capsule PO (11:39)
[2019-08-08] MEDS: Polyethylene Glycol 3350 17 GM PACKET PO (11:39)
--- NOTE | 2019-08-08 12:22 | DS.PCM_ITS ---
Discharge Date and Diagnosis Date of Admission: 08/05/19 Date of Discharge: 08/08/19 - Primary Discharge Diagnosis Status post left mastectomy and axillary lymph node dissection due to left breast cancer DKA resolved - Secondary Discharge Diagnosis Chronic Problems (Last Reviewed 08/06/19 @ 12:[address] Karel Landa, DO) Diabetes mellitus type I (Chronic) Estrogen receptor positive status (ER+) (Chronic) Breast ptosis (Chronic) Stage II Breast asymmetry (Chronic) right breast is larger than the left breast Inversion of left nipple (Chronic) Hyperlipidemia (Chronic) Essential (primary) hypertension (Chronic) Facet arthropathy, lumbar (Chronic) Hospital Course and Treatment Hospitalist and medical imaging technician for help with management of DKA Operations: - - On 08/05/2019 patient underwent a left mastectomy and axillary lymph node dissection by Dr. Fernandez Summary of Care Provided: The patient is a 74 year old F left mastectomy and axillary lymph node dissectio n due to left breast cancer. Postoperatively patient did have some nausea due to anesthesia which improved however patient did continue to have nausea and vomiting all night her blood sugar was 400 at night by the morning it was 680. Hospitalist and medical imaging technician were consulted for DKA. Patient was transferred to the ICU started on insulin drip. Over the day patient's blood sugars did improve by the night patient was back on her insulin pump with no additional insulin needed. Next day patient was transferred to the floor was tolerating mostly liquids but she would did not have much of an appetite, JPs are continued to be monitored and were serosanguineous. Today patient is tolerating diet still does not have much of an appetite JPs are serosanguineous and serous. 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 - Physical Exam Vitals/I&O's: Vital Signs Temp Pulse Resp BP Pulse Ox 98.3 F 90 16 135/61 H 94 08/08/19 08:00 08/08/19 08:38 08/08/19 08:00 08/08/19 08:00 08/08/19 08:00 Oxygen Flow Rate (L/min) 2 Oxygen Delivery Method Room Air Weight: 157 lb 3.2 oz Body Mass Index (BMI) 29.9 Finger Stick Blood Glucose 219 Intake and Output for Last 24 Hours 08/06/19 08/07/19 08/08/19 23:59 23:59 23:59 Intake Total 4824.99 / 4824.99 1956.08 / 1956.08 655.33 / 655.33 Output Total 1430 / 1430 965 / 965 500 / 500 Balance 3394.99 / 3394.99 991.08 / 991.08 155.33 / 155.33 General: Alert, Oriented x3, Cooperative, No apparent distress HEENT: Atraumatic Lungs: Normal air movement Cardiovascular: Regular rate Abdomen: Soft, Non Tender, Non-Distended Extremities: Edema - From IV fluids likely Skin: - - Left chest incision clean dry and intact, ecchymosis resolving, JPs present x2 1 serosanguineous in 1 serous, denies any numbness in the axilla and good motion of the left arm Neurological: Cranial nerves II-XII grossly intact Psych/Mental Status: Normal Affect Laboratory Results 08/05/19 16:31: POC Glucose 297 H 08/05/19 16:33: POC Glucose 304 H 08/07/19 12:52: POC Glucose 327 H 08/07/19 15:04: POC Glucose 288 H 08/07/19 17:51: POC Glucose 249 H 08/07/19 20:46: POC Glucose 225 H 08/08/19 06:00: WBC 7.7, RBC 2.62 L, Hgb 8.3 L, Hct 25.2 L, MCV 96.2, MCH 31.7, MCHC 32.9, RDW Std Deviation 47.8 H, RDW Coeff of Alex 13.6, Plt Count 87 L, MPV 10.8, Immature Gran % (Auto) 0.400, Neut % (Auto) 64.3, Lymph % (Auto) 27.0, Jerome % (Auto) 7.7, Eos % (Auto) 0.5, Baso % (Auto) 0.1, Absolute Neuts (auto) 4.9, Absolute Lymphs (auto) 2.07, Nucleated RBC % 0 08/08/19 06:00: Sodium 141, Potassium 4.1, Chloride 108 H, Carbon Dioxide 28.0, Anion Gap 5, BUN 29 H, Creatinine 1.22 H, Estim Creat Clear Calc 44.85, Est GFR (MDRD) Af Amer 55 L, Est GFR (MDRD) Non-Af 46 L, BUN/Creatinine Ratio 23.8 H, Glucose 135 H, Calcium 8.5 08/08/19 07:09: POC Glucose 176 H Current Medications Acetaminophen (Tylenol) 650 mg PO Q6H PRN PRN PRN Reason: Pain Score 1-10/10 Amlodipine Besylate (Norvasc) 5 mg PO DAILY [facility] Last Admin: 08/08/19 08:38 Dose: 5 mg Documented by: Atorvastatin Calcium (Lipitor) 5 mg PO QHS [facility] Last Admin: 08/07/19 23:33 Dose: 5 mg Documented by: Dextrose (D50w Syringe) 0 gm IV X1 PRN; Protocol PRN Reason: HYPOGLYCEMIA Docusate Sodium (Colace) 100 mg PO DAILY [facility] Last Admin: 08/08/19 11:39 Dose: 100 mg Documented by: Levothyroxine Sodium (Synthroid) 25 mcg PO DAILY@0600 [facility] Last Admin: 08/08/19 06:16 Dose: 25 mcg Documented by: Metoprolol Succinate (Toprol Xl (Beta Valorie)) 100 mg PO DAILY [facility] Last Admin: 08/08/19 08:38 Dose: 100 mg Documented by: Morphine Sulfate () 2 - 4 mg IV Q2H PRN PRN PRN Reason: Pain Score 1-10/10 Nutritional Formula (Lactose Free) (Glucerna Shake) 120 ml PO 4X/DAY [facility] Last Admin: 08/08/19 08:40 Dose: 120 ml Documented by: Ondansetron HCl (Zofran) 4 mg IV Q6H PRN PRN PRN Reason: NAUSEA/VOMITING Last Admin: 08/06/19 10:41 Dose: 4 mg Documented by: Oxycodone HCl (Oxyir) 2.5 - 10 mg PO Q4H PRN PRN PRN Reason: Pain Score 6-10/10 Last Admin: 08/07/19 13:03 Dose: 2.5 mg Documented by: Promethazine HCl (Phenergan) 6.25 mg IV Q6H PRN PRN PRN Reason: NAUSEA/VOMITING Last Admin: 08/06/19 05:54 Dose: 6.25 mg Documented by: Ranolazine (Ranexa) 500 mg PO DAILY [facility] Last Admin: 08/08/19 08:38 Dose: 500 mg Documented by: Sodium Chloride () 10 - 40 ml IV UD PRN PRN Reason: SALINE FLUSH Last Admin: 08/06/19 21:00 Dose: 20 ml Documented by: Discharge Diet: Light diet - advance as tolerated Discharge Activity: May not drive while taking narcotic pain medications. May shower in (days): 0 - Okay to shower but keep drain sites dry Lifting Restrict to (lbs):: 10 - For 2 weeks with the left arm Call your doctor if your incision/area has: Continuous Slow Oozing, Sudden Increased Bleeding, Increased Pain/ Swelling, Increased Redness, Foul Smelling Discharge, Swelling at the incision site Call your doctor if you observe: Fever of 101 or Higher Remove Dressing in (days):: 1 - Drain site gauze daily Additional Dressing/Incision Instructions:: Keep a log of drainage amounts for each of the 2 drains, log sheet printed out, strip drains at least once a day Home Medications: Medications to take at Discharge Insulin Aspart [Novolog] 1,000 unit CONT INF DAILY 11/09/16 aspirin 81 mg chewable tablet 81 mg PO .qod tab 12/10/17 levothyroxine 25 mcg capsule 25 mcg PO QDAY 12/10/17 simvastatin 10 mg tablet 10 mg PO QHS #90 tab 09/15/18 lisinopril 20 mg-hydrochlorothiazide 25 mg tablet 1 tab PO DAILY #90 tab 10/13/18 cholecalciferol (vitamin D3) 25 mcg (1,000 unit) capsule 1,000 unit PO .QOD cap 01/04/19 turmeric-turmeric ext-pepper 500 mg-black pepper extract 3 mg capsule 500 mg PO DAILY cap 01/04/19 amlodipine 5 mg tablet 5 mg PO DAILY #90 tab 02/24/19 metoprolol succinate 100 mg tablet,extended release 24 hr 100 mg PO DAILY #90 tab 03/21/19 Ranolazine [Ranexa] 500 mg PO DAILY 08/01/19 Oxycodone [Oxyir] 2.5 - 5 mg PO Q6H PRN PRN 5 Days #15 tab 08/08/19 Following Prescrptions Were Given to Patient: Oxycodone [Oxyir] 2.5 - 5 mg PO Q6H PRN PRN 5 Days #15 tab PRN Reason: Pain Or Fever Transmission Status: Received by [facility] [id number] Other Amb Orders: 12 Lead EKG [CVS] Time Frame: 08/01/19, Facility: [facility], Location: Cardiovascular Services Basic Metabolic Profile (BMP) Time Frame: 08/01/19, Facility: [facility], Location: Laboratory Hemoglobin A1c Time Frame: 08/01/19, Facility: [facility], Location: Laboratory Thyroid Stim Hormone (TSH) Time Frame: 08/01/19, Facility: [facility], Location: Laboratory Primary Care Physician: Celina Dangelo DO [Primary Care Provider] - Please Follow Up With: Amarilis Fernandez MD - After 5 PM and on the weekends call [phone] with any concerns Medical Necessity - Tobacco Use Smoking Status: Never smoker Tobacco Use: Non-smoker Meaningful Use Info Meaningful Use Diagnoses (Choose all that apply): None applicable
--- NOTE | 2019-08-08 12:29 | PCM.DC.GS ---
Discharge Diet: Light diet - advance as tolerated Discharge Activity: May not drive while taking narcotic pain medications. May shower in (days): 0 - Okay to shower but keep drain sites dry Lifting Restrictions: Lifting greater than 10 pounds for 2 weeks with the left arm Call your doctor if your incision/area has: Continuous Slow Oozing, Sudden Increased Bleeding, Increased Pain/ Swelling, Increased Redness, Foul Smelling Discharge, Swelling at the incision site Call your doctor if you observe: Fever of 101 or Higher Remove Dressing in (days):: 1 - Drain site gauze daily Additional Dressing/Incision Instructions:: Keep a log of drainage amounts for each of the 2 drains, log sheet printed out, strip drains at least once a day Additional Instructions: take stool softener daily with pain meds (colace/docusate 100 mg PO); if no BM today take a couple doses of miralax tomorrow. Allergies/Adverse Reactions: Allergies codeine Adverse Reaction (Verified 08/05/19 09:38) Vomiting hydrocodone Adverse Reaction (Verified 08/05/19 09:38) Vomiting meperidine [From Demerol] Adverse Reaction (Verified 08/05/19 09:38) Vomiting Medications to take at Discharge Insulin Aspart [Novolog] 1,000 unit CONT INF DAILY 11/09/16 aspirin 81 mg chewable tablet 81 mg PO .qod tab 12/10/17 levothyroxine 25 mcg capsule 25 mcg PO QDAY 12/10/17 simvastatin 10 mg tablet 10 mg PO QHS #90 tab 09/15/18 lisinopril 20 mg-hydrochlorothiazide 25 mg tablet 1 tab PO DAILY #90 tab 10/13/18 cholecalciferol (vitamin D3) 25 mcg (1,000 unit) capsule 1,000 unit PO .QOD cap 01/04/19 turmeric-turmeric ext-pepper 500 mg-black pepper extract 3 mg capsule 500 mg PO DAILY cap 01/04/19 amlodipine 5 mg tablet 5 mg PO DAILY #90 tab 02/24/19 metoprolol succinate 100 mg tablet,extended release 24 hr 100 mg PO DAILY #90 tab 03/21/19 Ranolazine [Ranexa] 500 mg PO DAILY 08/01/19 Oxycodone [Oxyir] 2.5 - 5 mg PO Q6H PRN PRN 5 Days #15 tab 08/08/19 The following prescriptions were given: Oxycodone [Oxyir] 2.5 - 5 mg PO Q6H PRN PRN 5 Days #15 tab PRN Reason: Pain Or Fever Transmission Status: Received by [id number] Orders to be completed after discharge: 12 Lead EKG [CVS] Time Frame: 08/01/19, Facility: [facility], Location: Cardiovascular Services Basic Metabolic Profile (BMP) Time Frame: 08/01/19, Facility: [facility], Location: Laboratory Hemoglobin A1c Time Frame: 08/01/19, Facility: [facility], Location: Laboratory Thyroid Stim Hormone (TSH) Time Frame: 08/01/19, Facility: [facility], Location: Laboratory Primary Care Physician: Celina Dangelo DO [Primary Care Provider] - Test Results: Test results from this visit will be discussed in further detail at your follow-up appointment, if applicable. Please Follow Up With: Amarilis Fernandez MD - After 5 PM and on the weekends call [phone] with any concerns When: call office for f/u this week depending on if HHC will be coming out Proposed Discharge Date: 08/08/19
[2019-08-08 12:50] LABS: Bedside Glucose 294 mg/dL (70-110)
[2019-08-08 14:18] VITALS: BP 122/55; PULSE 81; RESP 16; TEMP 36.8; O2SAT 94
--- NOTE | 2019-08-08 14:51 | CHAPLAIN ---
Type of Pastoral Visit _x__ Initial Visit ___ Follow-up Visit ___ On-call Visit ___ General Patient Visit ___ Spiritual Assessment ___ Family Conference ___ Bereavement ___ Rapid Response ___ Code Blue ___ Other (describe below) Pastoral Care Referral From ___ Patient _x__ Family ___ Nurse ___ Physician ___ Customer Account Manager ___ Artist Model ___ Other (describe below) Sacrament/Intervention _x__ Active listening ___ Anointing ___ Congregational ___ Bereavement ___ Communion ___ Ruth exploration ___ ___ Life review ___ Prayer ___ Reconciliation ___ Sacrament of Sick ___ Supportive presence ___ Wedding ___ Other (describe below) Pastoral Comments
[2019-08-09 16:46] LABS: Eosinophil Ct. Urine No Eosinophils Seen % (.)
== END 2019-08-08 17:20 | disposition home or self-care (01) | DRG 580 ==
LOC: SDC 12:25 → MS3 12:25 → ICU 08-06 19:37 → MS3 08-07 09:13
PROVIDERS: Admitting Provider Surgery; PCP Family Medicine; Referring Provider Surgery; Visit Provider Internal Medicine
PROC: 0HTU0ZZ Resection of Left Breast, Open Approach (ICD-10-PCS; CPT 19307; principal; 2019-08-05 11:45)
DX: C50.912 Malignant neoplasm of unspecified site of left female breast (principal); N17.9 Acute kidney failure, unspecified; E10.10 Type 1 diabetes mellitus with ketoacidosis without coma; C77.3 Secondary and unspecified malignant neoplasm of axilla and upper limb lymph nodes; Z17.0 Estrogen receptor positive status [ER+]; Z79.4 Long term (current) use of insulin; Z96.41 Presence of insulin pump (external) (internal); D69.6 Thrombocytopenia, unspecified; E78.5 Hyperlipidemia, unspecified; I10 Essential (primary) hypertension; M47.816 Spondylosis without myelopathy or radiculopathy, lumbar region; D64.9 Anemia, unspecified
CPT/HCPCS: 36415; 36569; 38792; 80048; 81001; 82009; 82570; 82947; 82962; 83036; 84300; 84443; 85025; 87205; 88305; 88307; 88309; 88331; 88341; 88342; 93005; 99251; A9541; J7030; J7120; A4216; G0463; J2405; J3490; Q9968

== ENCOUNTER → 2020-01-12 13:21 | Outpatient (CLI) | payer MEDICARE, OTHER, SELFPAY ==
[2020-01-05 10:38] VITALS: BMI 28.3
[2020-01-12 15:45] LABS: Absolute Lymphocyte Count 1.11 X10^3/uL (0.83-4.51); Absolute Neutrophil Count 2.1 X10^3/uL (2.0-7.7); Basophil# 0.05 X10^3/uL; Basophil% 1.4 % (0-1); Eosinophil# 0.05 X10^3/uL; Eosinophils% 1.4 % (0-5); Hematocrit 30.3 % (37-47); Hemoglobin 10.1 g/dL (12.0-15.0); Lymphocyte # 1.11 X10^3/ul (4.0); Lymphocyte % 31.7 % (19-41); Mean Corp Hgb Conc 33.3 g/dL (32-36); Mean Corpuscular Hgb 33.7 pg (27.0-32.0); Mean Platelet Vol. 11.2 fl (6.2-12.0); Monocyte# 0.18 X10^3/uL; Monocyte% 5.1 % (0-10); NRBC Flagged by Analyzer 0 % (0-5); Neutrophil # 2.07 X10^3/uL (2.7-7.7); Neutrophil % 59.3 % (47-70); POSITIVE MORPHOLOGY YES; Platelet Count 205 K/mm3 (150-450); RBC Distribution Width CV 18.4 % (11.6-14.6); RBC Distribution Width SD 67.5 fl (35.1-43.9); White Blood Count 3.5 K/mm3 (4.4-11.0)
[2020-01-12 15:50] LABS: Differential Indicated SCAN CRITERIA MET
[2020-01-12 16:08] LABS: Platelet Estimate ADEQUATE (ADEQ)
[2020-01-12 16:09] LABS: Anisocytosis RARE; Hypochromasia RARE; Macrocytosis RARE; Platelet Morphology LARGE; Red Cell Morphology N CHROM NORMAL (NORM C&C)
[2020-01-12 16:10] LABS: Albumin, Serum 3.4 g/dL (3.2-5.0); BUN 30 mg/dL (7-18); Chloride 100 mmol/L (98-107); Creatinine, Serum 1.76 mg/dL (0.55-1.02); EST Glomerular Filtration Rate 30 mL/min (>60); Est Glom Filt Rate - Afr Amer 36 mL/min (>60); Glucose 201 mg/dL (74-106); Phosphorus 3.1 mg/dL (2.5-4.9); Potassium 4.3 mmol/L (3.5-5.1); Sodium Level 135 mmol/L (136-145)
[2020-01-12 16:11] LABS: Protein, Urine (Random) 9.1 mg/dL (<11.9); Protein:Creat Ratio 107 mg/g CRE (0-200)
[2020-01-13 09:40] LABS: PTHIN 45.2 pg/mL (18.4-80.1)
== END ==
PROVIDERS: PCP Family Medicine; Visit Provider Internal Medicine Nephrology
DX: N18.3 Chronic kidney disease, stage 3 (moderate) (principal); N25.81 Secondary hyperparathyroidism of renal origin; R80.9 Proteinuria, unspecified
CPT/HCPCS: 36415; 80069; 82306; 82570; 83970; 84156; 85025

== ENCOUNTER → 2020-01-19 13:46 | Outpatient (CLI) | payer MEDICARE, OTHER, SELFPAY ==
[2020-01-05 10:38] VITALS: BMI 28.3
--- NOTE | 2020-01-19 13:48 | ECHODONC_ITS ---
Reason For Study: HYPERTENSION Procedure This was a 2D Doppler, Color Flow transthoracic echocardiogram. Myocardial strain analysis was performed in this exam to aid in the assessment of cardiac function. The study was technically difficult. D/T chest deformity (left mastectomy). Exam performed in department. Left Ventricle Normal LV size. Left ventricular systolic function is normal. The estimated ejection fraction is 55 %. No regional wall motion abnormalities noted. Right Ventricle Normal RV size. Normal systolic function. Atria Normal left atrium. Normal right atrium. Mitral Valve Normal mitral valve. Mild (1+) eccentric mitral valve insufficiency. Tricuspid Valve Normal tricuspid valve. Mild tricuspid valve insufficiency. Pulmonary artery systolic pressure is 28 mmHg. Aortic Valve The aortic valve is not well visualized. Mild (1+) aortic valve insufficiency. Pulmonic Valve Normal pulmonic valve. Great Vessels Normal aortic root. The pulmonary artery is normal size. Normal inferior vena cava. Pericardium/Pleural No pericardial effusion. MMode/2D Measurements & Calculations LVIDd: 4.3 cm IVSd: 0.97 cm Ao root diam: 3.0 cm LVIDs: 2.8 cm LVPWd: 0.97 cm RVDd: 2.5 cm FS: 35.2 % LAV(MOD-bp): 39.2 ml LA A4 area: 15.4 cm2 LA dimension(2D): 3.0 cm LAV(MOD-bp) Indexed: 24.7 ml/m2 LAV(MOD-sp2): 32.3 ml LAV(MOD-sp4): 38.6 ml RA A4 area: 11.6 cm2 Time Measurements MV dec time: 0.20 sec Doppler Measurements & Calculations MV E max patrick: 99.5 cm/sec Lat Peak E' Patrick: 8.5 cm/sec Med Peak E' Patrick: 7.0 cm/sec MV A max patrick: 113.7 cm/sec E/E' lat: 11.8 E/E' med: 14.1 MV E/A: 0.88 Ao V2 max: 156.5 cm/sec AI max patrick: 405.4 cm/sec LV V1 max: 107.7 cm/sec Ao max P.8 mmHg AI max P.8 mmHg LV V1 max P.6 mmHg AI dec slope: 205.5 cm/sec2 AI P1/2t: 577.7 msec PA V2 max: 85.3 cm/sec TR max patrick: 245.6 cm/sec TR max P.1 mmHg Interpretation Summary Normal LV size. Left ventricular systolic function is normal. The estimated ejection fraction is 55 %. Mild (1+) eccentric mitral valve insufficiency. Mild (1+) aortic valve insufficiency. Pulmonary artery systolic pressure is 28 mmHg. The global longitudinal strain is normal. The global longitudinal strain = -18.1 % (normal). Ordering Physician: Brent Cifuentes Referring Physician: Celina Dangelo Performed By: Darling Warren, PACO, RVT
== END ==
PROVIDERS: PCP Family Medicine; Referring Provider Internal Medicine Cardiovascular Disease; Visit Provider Internal Medicine Cardiovascular Disease
DX: C50.919 Malignant neoplasm of unspecified site of unspecified female breast (principal); I34.0 Nonrheumatic mitral (valve) insufficiency; I10 Essential (primary) hypertension
CPT/HCPCS: 93306; 93356

== ENCOUNTER → 2020-07-05 14:14 | Outpatient (CLI) | payer MEDICARE, OTHER, SELFPAY ==
[2020-07-05 13:24] VITALS: BMI 28.0
[2020-07-05 15:30] LABS: AST(SGOT) 14 U/L (15-37); Alanine Aminotransfer ALT/SGPT 21 U/L (13-56); Albumin, Serum 3.3 g/dL (3.2-5.0); Alkaline Phosphatase 70 U/L (45-117); Bilirubin, Direct 0.18 mg/dL (0.00-0.30); Cholesterol 160 mg/dL (200); Globulin 3.2 g/dL (2.2-4.2); High Density Lipoprotein 73 mg/dL; Protein, Total 6.5 g/dL (6.4-8.2); Triglycerides 104 mg/dL; Very Low Density Lipoprotein 21 mg/dL (5-40)
== END ==
LOC: LABSPEC 14:24 → LAB 07-06 06:33
PROVIDERS: PCP Family Medicine; Referring Provider Physician Assistant Medical; Visit Provider Physician Assistant Medical
DX: E78.2 Mixed hyperlipidemia (principal)
CPT/HCPCS: 36415; 80061; 80076

== ENCOUNTER → 2020-07-16 13:17 | Outpatient (CLI) | payer MEDICARE, OTHER, SELFPAY ==
[2020-07-05 13:24] VITALS: BMI 28.0
[2020-07-16 14:28] LABS: Hematocrit 29.7 % (37-47); Hemoglobin 10.3 g/dL (12.0-15.0); Mean Corp Hgb Conc 34.7 g/dL (32-36); Mean Corpuscular Hgb 39.5 pg (27.0-32.0); Mean Corpuscular Volume 113.8 fL (81-99); Mean Platelet Vol. 10.2 fl (6.2-12.0); Platelet Count 196 K/mm3 (150-450); RBC Distribution Width CV 14.2 % (11.6-14.6); RBC Distribution Width SD 58.6 fl (35.1-43.9); Red Blood Count 2.61 M/mm3 (4.2-5.4); White Blood Count 3.3 K/mm3 (4.4-11.0)
[2020-07-16 14:39] LABS: Protein:Creat Ratio 131 mg/g CRE (0-200)
[2020-07-16 14:49] LABS: Albumin, Serum 3.2 g/dL (3.2-5.0); Anion Gap 8 (5-15); BUN 17 mg/dL (7-18); Calcium,Total 9.5 mg/dL (8.5-10.1); Chloride 98 mmol/L (98-107); Creatinine, Serum 1.55 mg/dL (0.55-1.02); EST Glomerular Filtration Rate 35 mL/min (>60); Est Glom Filt Rate - Afr Amer 42 mL/min (>60); Glucose 84 mg/dL (74-106); Phosphorus 2.8 mg/dL (2.5-4.9); Potassium 3.8 mmol/L (3.5-5.1); Sodium Level 139 mmol/L (136-145)
[2020-07-16 14:53] LABS: Vitamin D,25 Hydroxy 64.7 ng/mL
[2020-07-16 15:03] LABS: PTHIN 43.8 pg/mL (18.4-80.1)
== END ==
PROVIDERS: PCP Family Medicine; Referring Provider Internal Medicine Nephrology; Visit Provider Internal Medicine Nephrology
DX: N18.30 Chronic kidney disease, stage 3 unspecified (principal); R80.9 Proteinuria, unspecified; N25.81 Secondary hyperparathyroidism of renal origin
CPT/HCPCS: 36415; 80069; 82306; 82570; 83970; 84156; 85027

== ENCOUNTER 2021-04-11 15:34 | Emergency (ER) | payer MEDICARE, OTHER, SELFPAY ==
[2021-04-11 15:37] VITALS: BP 230/84; PULSE 69; RESP 12; TEMP 35.1; O2SAT 99; BMI 32.0
[2021-04-11 15:50] LABS: Bedside Glucose 147 mg/dL (70-110)
--- NOTE | 2021-04-11 15:50 | RAD_ITS ---
STUDY: X-RAY - PELVIS REASON FOR EXAM: Female, 75 years old. fall TECHNIQUE: One view of the pelvis was obtained. COMPARISON: None. FINDINGS: There is a non-specific bowel gas pattern. Normal visualized soft tissue structures. Bowel and urinary tract contrast. Normal bilateral iliac wings, sacroiliac joints and visualized sacrum. Normal visualized bilateral superior and inferior pubic rami. Normal pubic symphysis. Normal ischial tuberosities. Normal visualized right femoral head. Normal right acetabulum. Normal right hip joint. Normal visualized left femoral head. Normal left acetabulum. Normal left hip joint. RAD/Pelvis 1 or 2 Views IMPRESSION: No pelvic ring fracture. Electronically Signed: Manfred De Santiago MD (Brooks) at 16:36 EDT , Service support ,
--- NOTE | 2021-04-11 15:50 | EKG12_ITS ---
Test Reason : SYNCOPE Blood Pressure : / mmHG Vent. Rate : 064 BPM Atrial Rate : 064 BPM P-R Int : 196 ms QRS Dur : 094 ms QT Int : 458 ms P-R-T Axes : 067 025 004 degrees QTc Int : 472 ms Normal sinus rhythm Normal ECG Confirmed by LAKEISHA RÍOS, REBECCA ([id number]), production editor RICKIE BROWN ([id number]) on 04/12/2021 1:52:07 PM Referred By: SATURNINO Confirmed By:REBECCA SUAZO MD
--- NOTE | 2021-04-11 15:50 | CT_ITS ---
STUDY: CT BRAIN WITHOUT CONTRAST REASON FOR EXAM: Female, 75 years old. syncope RADIATION DOSAGE (If Supplied By Facility): CTDIvol = ( 44.99 ) mGy, DLP = ( 762.36 ) mGycm TECHNIQUE: Transaxial CT imaging of the brain was performed without administration of intravenous contrast material. Individualized dose optimization techniques were used for this CT. COMPARISON: No relevant priors. FINDINGS: Normal soft tissue structures. Normal calvarium. There is mild cerebral atrophy with widening of the extra-axial spaces and ventricular dilatation. There are areas of decreased attenuation within the white matter tracts of the supratentorial brain, consistent with microvascular disease changes. Normal basal ganglia and thalami. Normal brainstem. Normal cerebellum. There is no intracranial hemorrhage. There are no findings of an acute ischemic infarction. Normal visualized paranasal sinuses. CT/Brain/Head without Contrast IMPRESSION: No acute intracranial hemorrhage or mass effect. Electronically Signed: Manfred De Santiago MD (Brooks) at 16:33 EDT , Service support ,
[2021-04-11 15:59] LABS: Basophil# 0.02 X10^3/uL; Basophil% 0.9 % (0-1); Eosinophil# 0.04 X10^3/uL; Eosinophils% 1.8 % (0-5); Hemoglobin 10.3 g/dL (12.0-15.0); Lymphocyte % 41.3 % (19-41); Mean Corp Hgb Conc 35.5 g/dL (32-36); Mean Corpuscular Hgb 40.7 pg (27.0-32.0); Mean Corpuscular Volume 114.6 fL (81-99); Monocyte# 0.18 X10^3/uL; Monocyte% 8.3 % (0-10); NRBC Flagged by Analyzer 0 % (0-5); Neutrophil # 1.03 X10^3/uL (2.7-7.7); Neutrophil % 47.2 % (47-70); POSITIVE MORPHOLOGY YES; Platelet Count 110 K/mm3 (150-450); RBC Distribution Width CV 13.7 % (11.6-14.6); RBC Distribution Width SD 57.1 fl (35.1-43.9); Red Blood Count 2.53 M/mm3 (4.2-5.4); White Blood Count 2.2 K/mm3 (4.4-11.0)
[2021-04-11 16:01] LABS: Differential Indicated SCAN CRITERIA MET
[2021-04-11 16:22] LABS: Differential Comment SCANNED
[2021-04-11 16:25] LABS: Anion Gap 8 (5-15); BUN 16 mg/dL (7-18); BUN/Creat Ratio 10.8 RATIO (10-20); Calcium,Total 9.1 mg/dL (8.5-10.1); Chloride 99 mmol/L (98-107); Creatinine, Serum 1.48 mg/dL (0.55-1.02); EST Glomerular Filtration Rate 36 mL/min (>60); Est Glom Filt Rate - Afr Amer 44 mL/min (>60); Estimated Creatinine Clearance 36.76 ml/min; Glucose 153 mg/dL (74-106); Potassium 3.9 mmol/L (3.5-5.1); Sodium Level 136 mmol/L (136-145); Troponin-I HS 4 pg/mL (3.0-54.0)
[2021-04-11 16:50] VITALS: BP 149/75; PULSE 70; RESP 16; O2SAT 97
[2021-04-11 16:50] LABS: Bedside Glucose 125 mg/dL (70-110)
--- NOTE | 2021-04-11 18:04 | EX.ED.DYSGE1 ---
HPI History of Present Illness Chief Complaint: Hypoglycemia Narrative Narrative: Patient is a 75-year-old female with history of cancer and diabetes who has an insulin pump. She states she went to the [facility] today for outpatient testing because of her cancer. She states she was advised she is not allowed to eat or drink secondary to the testing she is doing. She reports that she went and had the testing done and was walking back to her car when the next thing she remembers that she is being woken up while on the ground. EMS reports when they arrived the patient was breathing but obtunded and her blood sugar was low at 48 and therefore they gave her D50. After doing this they report the patient's mental status returned to baseline. Upon arrival to the ER the patient reports feeling slightly nauseous but otherwise has no complaints [facility] Medical History Acquired absence of left breast and nipple Acute renal failure Arthritis Back problem Bone metastases Breast asymmetry Breast cancer, left Breast ptosis Cataracts, bilateral Diabetes mellitus Disproportion of reconstructed breast Environmental allergies Essential (primary) hypertension Estrogen receptor positive status (ER+) Facet arthropathy, lumbar Hearing problem Hyperlipidemia Hyperthyroidism Invasive lobular carcinoma of left breast in female Inversion of left nipple Kidney disease Metastatic breast cancer Osteoarthritis Osteoporosis Segmental and somatic dysfunction of lumbar region Segmental and somatic dysfunction of pelvic region Type 1 diabetes mellitus Vision problems Home Medications anastrozole 1 mg tablet 1 mg PO DAILY 10/25/19 [History Last Taken Unknown] denosumab 60 mg/mL subcutaneous syringe 60 mg SC QMONTH ml 01/05/20 [History Last Taken Unknown] metoprolol succinate 100 mg tablet,extended release 24 hr 100 mg PO DAILY #90 tab 05/23/20 [Rx Last Taken Unknown] aspirin 81 mg chewable tablet 81 mg PO Q OTHER DAY tab 07/05/20 [History Last Taken Unknown] calcium-vitamin D3-vitamin K 500 mg-1,000 unit-40 mcg chewable tablet 2 tab PO BID 07/05/20 [History Last Taken Unknown] cholecalciferol (vitamin D3) 25 mcg (1,000 unit) capsule 2,000 unit PO BID cap 07/05/20 [History Last Taken Unknown] ranolazine 500 mg tablet,extended release,12 hr 500 mg PO DAILY #90 tab 07/05/20 [Rx Last Taken Unknown] simvastatin 10 mg tablet 10 mg PO QHS #90 tab 07/05/20 [Rx Last Taken Unknown] levothyroxine 25 mcg capsule 25 mcg PO QDAY #90 cap 09/24/20 [Rx Last Taken Unknown] palbociclib 75 mg tablet 75 mg PO DAILY tab 12/11/20 [History Last Taken Unknown] insulin aspart U-100 [Novolog U-100 Insulin aspart] 40 unit SUBCUT DAILY 04/11/21 [History Last Taken Unknown] Allergy/AdvReac Type Severity Reaction Status Date / Time codeine AdvReac Vomiting Verified 04/11/21 15:36 hydrocodone AdvReac Vomiting Verified 04/11/21 15:36 meperidine [From Demerol] AdvReac Vomiting Verified 04/11/21 15:36 Family History Father Myocardial infarction <55 Heart disease Hypertension High cholesterol Mother Osteoporosis Skin cancer Surgical History History of left breast biopsy (06/2019) History of left heart catheterization (10/30/06) History of modified radical mastectomy of left breast (08/05/19) History of tubal ligation Status post right breast biopsy Social History Smoking Status: Never smoker alcohol intake: current alcohol intake frequency: holidays/special occasions only substance use type: does not use caffeine: Yes Type: coffee Number of servings: 2 additional social history: DOES USE ASPIRIN DOES NOT USE IBUPROFEN ROS ROS ED Constitutional Constitutional ED: Denies chills or fever(s) ENT ENT ED: Denies sore throat Cardiovascular Cardiovascular: Reports syncope; Denies chest pain Respiratory/Chest Respiratory/Chest: Denies cough or dyspnea Gastrointestinal Gastrointestinal: Reports nausea; Denies abdominal pain, diarrhea or vomiting Genitourinary Genitourinary ED: Denies dysuria Musculoskeletal Musculoskeletal: Denies myalgias Integumentary Denies rash Neurologic Neurologic: Denies headache(s) Hematologic/Lymphatic Hematologic/Lymphatic: Denies easy bleeding or easy bruising EXAM Physical Exam Const Vital Signs: 04/11/21 15:37 04/11/21 15:45 04/11/21 16:50 Temperature 95.1 F L Temperature Source Temporal Pulse Rate 69 70 Respiratory Rate 12 16 Respiratory Effort Normal Non-Labored Respiratory Pattern Normal Blood Pressure 230/84 H 149/75 H Blood Pressure Mean 132 99 Pulse Ox 99 97 Oxygen Delivery Method Room Air Room Air 04/11/21 18:28 Temperature Temperature Source Pulse Rate 76 Respiratory Rate Respiratory Effort Respiratory Pattern Blood Pressure 143/60 H Blood Pressure Mean Pulse Ox 97 Oxygen Delivery Method Positive well nourished and well developed General Appearance ED: well developed HEENT Reports dry mucous membranes HEENT Narrative: No signs of depressed or basilar skull fracture Mouth ED: Yes dry mucous membranes Mouth: dry mucous membranes Eyes PERRL and EOMs intact bilaterally Neck full ROM, No nuchal rigidity and supple Neck Narrative: No bony deformity step-off of the cervical spine no midline pain with palpation Chest Wall Chest: symmetrical chest wall rise; Negative for crepitus or localized rib tenderness with anteroposterior compression Resp normal respiratory effort and clear to auscultation bilaterally Cardio regular rate and regular rhythm GI normal to inspection, nondistended, normoactive bowel sounds, soft to palpation, non-tender, non-distended and no masses Auscultation: normoactive bowel sounds Palpation: soft Back/Spine Back/Spine Narrative: No bony deformity or step-off of the thoracic or lumbar spine no midline pain with palpation Extremity normal to inspection Extremity Narrative: Pelvis stable there is no shortening or external rotation of either lower extremity Neuro oriented x3, CN's II-XII intact bilaterally, moves all extremities and no focal motor deficits Sensorium / Orientation: alert Psych mental status grossly normal Skin no rashes or lesions noted Skin Narrative: No abrasions or ecchymosis noted MDM MDM MDM Narrative Medical decision making narrative: Patient presented to the ER awake and alert with a nonfocal neuro exam and no obvious signs of trauma. Her history is consistent with hypoglycemia leading to a syncopal event mainly because she could not eat or drink today because of her outpatient testing and her insulin pump continued to provide insulin. The pump was turned off and a basic work-up was obtained to check for signs of cardiac damage or trauma from the syncopal event. Patient does have chronic changes to her labs consistent with her cancer diagnosis but these are near her baseline. The patient was given food to eat in the ER and watched for a few hours and her blood sugar actually elevated. She was also ambulated and was able to walk with a steady gait. Therefore at this time as she has had no further bouts of hypoglycemia and work-up reveals no acute trauma or cardiac events she is safe for discharge Lab Data Attestation: I reviewed the patient's lab results. Labs: Laboratory Results - last 24 hr 04/11/21 04/11/21 04/11/21 15:43 15:48 15:48 WBC 2.2 L RBC 2.53 L Hgb 10.3 L Hct 29.0 L MCV 114.6 H MCH 40.7 H MCHC 35.5 RDW Std Deviation 57.1 H RDW Coeff of Alex 13.7 Plt Count 110 L MPV 10.0 Immature Gran % (Auto) 0.500 Neut % (Auto) 47.2 Lymph % (Auto) 41.3 H [place] % (Auto) 8.3 Eos % (Auto) 1.8 Baso % (Auto) 0.9 Absolute Neuts (auto) 1.0 L Absolute Lymphs (auto) 0.90 Nucleated RBC % 0 Differential Comment SCANNED Sodium 136 Potassium 3.9 Chloride 99 Carbon Dioxide 29.0 Anion Gap 8 BUN 16 Creatinine 1.48 H Estim Creat Clear Calc 36.76 Est GFR (MDRD) Af Amer 44 L Est GFR (MDRD) Non-Af 36 L BUN/Creatinine Ratio 10.8 Glucose 153 H Calcium 9.1 Troponin I High Sens 4 POC Glucose 147 H 04/11/21 04/11/21 16:47 18:17 WBC RBC Hgb Hct MCV MCH MCHC RDW Std Deviation RDW Coeff of Alex Plt Count MPV Immature Gran % (Auto) Neut % (Auto) Lymph % (Auto) [place] % (Auto) Eos % (Auto) Baso % (Auto) Absolute Neuts (auto) Absolute Lymphs (auto) Nucleated RBC % Differential Comment Sodium Potassium Chloride Carbon Dioxide Anion Gap BUN Creatinine Estim Creat Clear Calc Est GFR (MDRD) Af Amer Est GFR (MDRD) Non-Af BUN/Creatinine Ratio Glucose Calcium Troponin I High Sens POC Glucose 125 H 218 H Radiography Diagnostic Testing: Clinical Impression(s) from Imaging Studies Brain CT 04/11/21 15:50 IMPRESSION: No acute intracranial hemorrhage or mass effect. Electronically Signed: Manfred De Santiago MD ([place]) at 16:33 EDT , Service support , Pelvis X-Ray 04/11/21 15:50 IMPRESSION: No pelvic ring fracture. Electronically Signed: Manfred De Santiago MD ([place]) at 16:36 EDT , Service support , Discharge Plan Triage Chief Complaint: Hypoglycemia ED Provider: Jorge Lomeli Dx/Rx/DC Orders Clinical Impression: Hypoglycemia Instructions: Hypoglycemia (Low Blood Sugar) Prescriptions: No Action cholecalciferol (vitamin D3) 1,000 unit capsule 25 mcg (1,000 unit) capsule 2,000 unit PO BID RF: 0 Prolia 60 mg/mL syringe 60 mg SC QMONTH RF: 0 calcium-vitamin D3-vitamin K [Citracal-D3 Soft Chew] 500 mg-1,000 unit-40 mcg tablet,chewable 2 tab PO BID RF: 0 ranolazine 500 mg tablet extended release 12 hr 500 mg PO DAILY Qty: 90 RF: 3 simvastatin 10 mg tablet 10 mg PO QHS Qty: 90 RF: 3 Ibrance 75 mg tablet 75 mg PO DAILY RF: 0 aspirin 81 mg tablet,chewable 81 mg PO Q OTHER DAY RF: 0 insulin aspart U-100 [Novolog U-100 Insulin aspart] 100 unit/mL solution 40 unit subcut DAILY RF: 0 anastrozole [Arimidex] 1 mg tablet 1 mg PO DAILY RF: 0 metoprolol succinate 100 mg tablet extended release 24 hr 100 mg PO DAILY Qty: 90 RF: 3 levothyroxine 25 mcg capsule 25 mcg capsule 25 mcg PO QDAY Qty: 90 RF: 3 Primary Care Provider: Celina Dangelo Referrals: Celina Dangelo DO [Primary Care Provider] - Disposition Disposition: Home, Self Care Discharge Date/Time: 04/11/21 18:42
[2021-04-11 18:20] LABS: Bedside Glucose 218 mg/dL (70-110)
[2021-04-11 18:28] VITALS: BP 143/60; PULSE 76; O2SAT 97
== END 2021-04-11 18:42 | disposition home or self-care (01) ==
PROVIDERS: Emergency Provider Emergency Medicine; PCP Family Medicine
DX: E10.649 Type 1 diabetes mellitus with hypoglycemia without coma (principal); Z96.41 Presence of insulin pump (external) (internal); C50.912 Malignant neoplasm of unspecified site of left female breast; C79.51 Secondary malignant neoplasm of bone; Z17.0 Estrogen receptor positive status [ER+]; I10 Essential (primary) hypertension; E05.90 Thyrotoxicosis, unspecified without thyrotoxic crisis or storm; E78.5 Hyperlipidemia, unspecified; M19.90 Unspecified osteoarthritis, unspecified site; Z79.82 Long term (current) use of aspirin; Z79.4 Long term (current) use of insulin; Z79.899 Other long term (current) drug therapy; Z90.12 Acquired absence of left breast and nipple
CPT/HCPCS: 70450; 72170; 80048; 82962; 84484; 85025; 93005; 99285; A4216

== ENCOUNTER → 2021-05-13 09:19 | Outpatient (CLI) | payer MEDICARE, OTHER, SELFPAY ==
--- NOTE | 2021-05-13 09:29 | RAD_ITS ---
STUDY: X-RAY - LUMBOSACRAL SPINE REASON FOR EXAM: Female, 75 years old. Fall one month ago with back and hip pain TECHNIQUE: 6 view(s) of the lumbosacral spine were obtained. COMPARISON: None FINDINGS: Normal lumbar lordosis. There is no substantial scoliosis. There is normal alignment of the vertebrae on neutral, flexion and extension views. There is diffuse demineralization with multi-level endplate spondylosis. Mild loss of disc height at L4-L5 and L5-S1. Moderate facet arthropathy at the lower 3 lumbar levels. No pars defects. Normal bilateral sacral ala, sacroiliac joints, and visualized sacrum. Normal visualized soft tissue structures. RAD/L/S Spine Comp/w Bending Views IMPRESSION: 1. Facet dominant degenerative changes. Electronically Signed: Manfred De Santiago MD ([place]) at 8:32 EST , Service support ,
--- NOTE | 2021-05-13 09:35 | RAD_ITS ---
STUDY: X-RAY - PELVIS AND LEFT HIP REASON FOR EXAM: Female, 75 years old. PAIN TECHNIQUE: 3 views of the pelvis and hip. COMPARISON: None. FINDINGS: There is a non-specific bowel gas pattern. There are multiple calcified phleboliths. Normal bilateral iliac wings, sacroiliac joints and visualized sacrum. Normal bilateral superior and inferior pubic rami. Normal pubic symphysis. Normal bilateral ischial tuberosities. There are osteoarthritic changes of the femoral head with marginal osteophyte formation. There is osteoarthritic spur formation of the acetabular rim. There is mild articular joint space narrowing of the hip. RAD/HIP, UNI W/ Pelvis 2-3 Views IMPRESSION: Osteoarthrosis of left hip. Electronically Signed: Manfred De Santiago MD ([place]) at 8:29 EST , Service support ,
== END ==
PROVIDERS: PCP Family Medicine; Referring Provider Family Medicine; Visit Provider Family Medicine
DX: M25.559 Pain in unspecified hip (principal); M54.50 Low back pain, unspecified
CPT/HCPCS: 72114; 72120; 73502

== ENCOUNTER 2021-06-03 14:54 | Outpatient (RCR) | payer MEDICARE, OTHER, SELFPAY | END 2021-06-03 15:09 | disposition home or self-care (01) | LOC: PT 14:54 | PROVIDERS: PCP Family Medicine; Referring Provider Family Medicine; Visit Provider Family Medicine | DX: Z00.00 Encounter for general adult medical examination without abnormal findings (principal) ==

== ENCOUNTER 2021-07-04 14:30 | Outpatient (RCR) | payer MEDICARE, OTHER, SELFPAY ==
--- NOTE | 2021-05-15 14:33 | HP.PTEVAL_ITS ---
Patient's Visit Information BASSAM JAIN is a 75 year old F referred to Physical Therapy by Dr. Zuleika Busch DC with a diagnosis of BACK PAIN ,PELVIC REGION,LUMBAR REGION. Date of Evaluation: 05/15/21 Physical Therapist: Jensen Reed, PT, Cert MDT, OCS - Visit Plan Frequency: 2x /Week Duration: 4 Weeks Plan: PT INTERVETIONS POSTURAL EX'S ,DLS ABD/BACK ,LE STRENGTHNING AND MODALITIES FOR PAIN - Subjective This 75 y/o female presents to physical therapy with Lumbar pain. Patient has had lumbar since last summer. But did have a incident where patient fell in parking lot May 05 syncope episode . Patient seen chiropractor which helped sciatica symptoms. Patient also had x-rays of hip with spurs and DJD and lumbar DDD. Patient initially seen family DR .Location of pain symmetrical lumbar and lateral hip to knee. Aggravating walking, standing ,lifting and light housework . Alleviating factors sitting, resting. Denies paresthesia/tingling. Bowel/bladder -. Coughing/sneezing-. Patient pain affects sleeping especially left leg. Unable to sleep on side. Patient pain affects QOL and function. Symptoms make ADLS' and housework tasks. Patient also has left shoulder arm pain. VOCATION: retired. SOCIAL: - Pain Bilateral Back Pain Intensity (Out of 10): 9 Pain Intensity Range: 10 Left Hip Pain Intensity (Out of 10): 9 Pain Intensity Range: 10 Comment: left lateral hip - Objective POSTURE: mild forward posture ,trunk and kyphosis. NEURO: denies paresthesia /tingling reflexes C5-6-7 06/17. SYMMTRIES: align PELVIS. PALAPTION: tender SI/LS. LUMBAR ROM: flexion min loss pain , extension mod loss pain, side glides mod loss. MMT: quads/hams 4-5/,hip flexion 3-/4,hip abduction 3-/5, ankle 4/5. GAIT: reciprocal pattern mild forward posture slow frank - Special Tests L/S Slump test left side: Negative L/S Slump test right side: Negative L/S Left Straight Leg Raise: Negative L/S Right Straight Leg Raise: Negative Lumbar Standing: Flexion - Mechanical Response: No effect Lumbar Standing: Flexion - Symptoms During Testing: Increases Lumbar Standing: Flexion - Symptoms After Testing: No worse Lumbar Standing: Extension - Mechanical Response: No effect Lumbar Standing: Extension - Symptoms During Testing: Increases Lumbar Standing: Extension - Symptoms After Testing: No worse Lumbar Standing: Right Side Glides - Mechanical Response: No effect Lumbar Standing: Right Side Climax - Symptoms During Testing: No effect Lumbar Standing: Right Side Climax - Symptoms After Testing: No effect Lumbar Standing: Left Side Climax - Mechanical Response: No effect Lumbar Standing: Left Side Climax - Symptoms During Testing: No effect Lumbar Standing: Left Side Climax - Symptoms After Testing: No effect - Balance/Special Test Scores Oswestry Low Back Score: 27 - Goals Goal 1:: I with HEP for back pain. Goal Time Frame: 4-6 Weeks Goal 2:: Patient improve posture for ADLS' Goal Time Frame: 4-6 Weeks Goal 3:: Patient to demonstrate 50% improvement with decrease back pain to improve function. Goal Time Frame: 6-8 Weeks Goal 4:: Patient to improve lumbar ROM for function of recovery Goal Time Frame: 4-6 Weeks Goal 5:: Patient to improve back owestry score by 5 points to improve QOL. Goal Time Frame: 4-6 Weeks - Rehabilitation Potential Physical Therapy Diagnosis: This patient has symmetrical lumbar pain with symptoms in lateral hip with weakness in hips ,decrease lumbar ROM with positioning and motion testing ,worsens with gait and standing affects ADLS' and housework tasks thus benefit from skilled PT Rehabilitation Potential: Good - Anticipated Interventions Patient/Client Instruction: Educate patient on: Condition, Plan of Care For the Purpose of:: To decrease pain, To increase ROM, To improve muscle performance and motor function, To improve ability to perform ADL's, To increase tolerance to activity/condition/position, To improve performance and independence with ADL's, To improve ability of physical actions for home/community/work/leisure, To improve health of tissue, To decrease soft tissue restriction, To increase flexibility/ROM, To reduce risk of recurrence, To prevent re-injury Therapeutic Exercise to Include: Strength training, Endurance training, Body mechanics, Postural training, Flexibilty training, Dynamic Lumbar Stabilization For the Purpose of:: To decrease pain, To increase ROM, To improve muscle p erformance and motor function, To improve ability to perform ADL's, To increase tolerance to activity/condition/position, To improve ability of physical actions for home/community/work/leisure, To improve health of tissue, To decrease soft tissue restriction, To increase flexibility/ROM, To reduce risk of recurrence, To prevent re-injury TENS: Yes IF ES: Yes Cryotherapy (ice pack, ice massage): Yes Thermo therapy (hot pack): Yes Ultrasound (thermal/non thermal): Yes For the Purpose of:: To decrease pain, To increase ROM, To improve nutrient delivery to tissue, To increase oxygenation perfusion, To improve health of tissue, To decrease soft tissue restriction, To increase flexibility/ROM Thank you for the opportunity to evaluate your patient. For Medicare and Medicare HMO plans, please review the plan of care and approve it. It will need to be FAXED BACK to us at [phone] for Medicare purposes. For Medicare only, by signing this I certify the plan of care. Please let me know if there are questions or concerns regarding this plan of care. Physician Signature: Date:
--- NOTE | 2021-06-12 14:01 | HP.PTREVAL_ITS ---
Dr. Zuleika Busch, [place], It has been my pleasure to treat BASSAM JAIN over the last 9 visits for BACK PAIN ,PELVIC REGION,LUMBAR REGION. Please see the progress note below for an update on the physical therapy plan of care! Subjective: Seen DR Snider. Thought it was bursitis and I T BAND and back issues. Patient sleeping better Objective/Function: GAIT: reciprocal pattern. NEURO: intact. PALAPTION: tender IT distal and proximal. MMT: quads/hams 4/5,hip flexion 4-/5,abduction 4-/5 Plan Plan: CONT WITH POC 2 XWEEK FOR 4WEEKS. PT INTERVETIONS LATERAL HIP /IT BAND POSTURAL EX'S ,DLS ABD/BACK ,LE STRENGTHNING AND MODALITIES FOR PAIN Balance/Gait/Functional tests - Balance/Special Test Scores Oswestry Low Back Score: 18 Goals Goal 1:: I with HEP for back pain. Goal Time Frame: 4-6 Weeks Goal Progress: Progressing Goal 2:: Patient improve posture for ADLS' Goal Time Frame: 4-6 Weeks Goal Progress: Progressing Goal 3:: Patient to demonstrate 50% improvement with decrease back pain to improve function. Goal Time Frame: 6-8 Weeks Goal Progress: Progressing Goal 4:: Patient to improve lumbar ROM for function of recovery Goal Time Frame: 4-6 Weeks Goal Progress: Progressing Goal 5:: Patient to improve back owestry score by 5 points to improve QOL. Goal Time Frame: 4-6 Weeks Goal Progress: Progressing Goal 6:: (new goal). Patient to pain lateral hip and knee of I T BAND BY 50% improvement Anticipated Interventions Patient/Client Instruction: Educate patient on: Condition, Plan of Care For the Purpose of:: To decrease pain, To increase ROM, To improve muscle performance and motor function, To improve ability to perform ADL's, To increase tolerance to activity/condition/position, To improve performance and indepen dence with ADL's, To improve ability of physical actions for home/community/work/leisure, To improve health of tissue, To decrease soft tissue restriction, To increase flexibility/ROM, To reduce risk of recurrence, To prevent re-injury Therapeutic Exercise to Include: Strength training, Endurance training, Body mechanics, Postural training, Flexibilty training, Dynamic Lumbar Stabilization For the Purpose of:: To decrease pain, To increase ROM, To improve muscle performance and motor function, To improve ability to perform ADL's, To increase tolerance to activity/condition/position, To improve ability of physical actions for home/community/work/leisure, To improve health of tissue, To decrease soft tissue restriction, To increase flexibility/ROM, To reduce risk of recurrence, To prevent re-injury TENS: Yes IF ES: Yes Cryotherapy (ice pack, ice massage): Yes Thermo therapy (hot pack): Yes Ultrasound (thermal/non thermal): Yes For the Purpose of:: To decrease pain, To increase ROM, To improve nutrient delivery to tissue, To increase oxygenation perfusion, To improve health of tissue, To decrease soft tissue restriction, To increase flexibility/ROM Please do not hesitate to contact me at [phone] by phone or if you have questions or concerns regarding this new plan of care! Sincerely, Jensen Reed, PT, Cert MDT, OCS
--- NOTE | 2021-06-12 15:01 | HP.PTEVAL2 ---
Patient's Visit Information BASSAM JAIN is a 75 year old F referred to Physical Therapy by Dr. Zuleika Busch DC with a diagnosis of CERVICAL RADICULOPATHY. Date of Evaluation: 06/12/21 Physical Therapist: Jensen Reed PT, Cert MDT, OCS - Visit Plan Frequency: 2x /Week Duration: 4 Weeks Plan: PT INTERVETIONS CERVICAL/PSOTURAL EX'S ,AVOID LEFT ,STRENGTHNENING AND MODALTIES FOR PAIN RELEIVE - Subjective Subjective: This 75 y/o female presents to physical therapy with cervical radiculopathy. Patient fell Apr 11 caused pain hip and back which patient is currently receiving PT. Patient noticed left arm ~ 1week later. Patient has been experiencing pain lateral deltoid to thumb with paresthesia . Seen DR x-rays shoulder multiple level DDD and foraminal stenosis. Aggravating factors laying down , lifting ,sitting ,turning to left. Alleviating factors position change ,rest. Denies WYNNE/tinnitus/nausea. Coughing/sneezing-. Symptoms affects sleeping with arm. No Medications. No prior PT . Patient condition affects QOL and function due to severity of pain. SOCIAL: . VOCATION: retired - Pain Left Shoulder Intensity: 3 Pain Intensity Range: 10 - Objective Objective: POSTURE: mild thoracic kyphosis. PALPTION: tender UT/levator. NEURO: c/o paresthesia left arm to thumb ,C5-6-7 1/. 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 MMT: Grossly -BUE 4/5 and 4-/5 deltoid. CERVICAL ROM: flexion mod loss pain, extension mod loss pain ,retraction mod loss pain ,lateral flexion/rotation mod loss pain - Special Tests C/S Radiculapathy - Left Upper limb tension test: Negative C/S Radiculapathy - Right Upper limb tension test: Negative C/S Radiculapathy - Left Spurlings: Positive C/S Radiculapathy - Right Spurlings: Negative C/S Radiculapathy - Left Cervical distraction: Positive C/S Radiculapathy - Right Cervical distraction: Positive C/S Radiculapathy - Left Relief test: Negative C/S Radiculapathy - Right Relief test: Negative Sharp Sven: Negative Vertebral Artery Test: Negative Alar Ligament Test: Negative Protrusion - Mechanical Response: No effect Protrusion - Symptoms During Testing: Increases Protrusion - Symptoms After Testing: Worse Retraction - Mechanical Response: No effect Retraction - Symptoms During Testing: Peripheralizing Retraction - Symptoms After Testing: Worse Retraction-Extension - Mechanical Response: No effect Retraction-Extension - Symptoms During Testing: Increases Retraction-Extension - Symptoms After Testing: Worse Sidebend Right - Mechanical Response: No effect Sidebend Right - Symptoms During Testing: Decreases Sidebend Right - Symptoms After Testing: Better Sidebend Left - Mechanical Response: No effect Sidebend Left - Symptoms During Testing: Peripheralizing Sidebend Left - Symptoms After Testing: Worse Rotation Right - Mechanical Response: No effect Rotation Right - Symptoms During Testing: Decreases Rotation Right - Symptoms After Testing: Better Rotation Left - Mechanical Response: No effect Rotation Left - Symptoms During Testing: Peripheralizing Rotation Left - Symptoms After Testing: Worse Flexion - Mechanical Response: No effect Flexion - Symptoms During Testing: Peripheralizing Flexion - Symptoms After Testing: Worse - Goals Goal 1:: Patient to be I HEP for cervical spine Goal Time Frame: 4-6 Weeks Goal 2:: Patient to improve posture for ADLS to manage symptoms Goal Time Frame: 4-6 Weeks Goal 3:: Patient to improve cervical ROM for function of recovery with less pain towards left side Goal Time Frame: 4-6 Weeks Goal 4:: Patient to demonstrate 50% improvement with decrease symptoms in left arm Goal Time Frame: 4-6 Weeks Goal 5:: Patient to improve cervical owestry score by 5 points to improve QOL Goal Time Frame: 4-6 Weeks - Rehabilitation Potential Physical Therapy Diagnosis: This patient has cervical radiculopathy with possible foraminal stenosis left with pain during movement test to left and symptom better to right ,positioning ,pain traction and laying down thus benefit from skilled PT Rehabilitation Potential: Good - Anticipated Interventions Patient/Client Instruction: Educate patient on: Condition, Plan of Care For the Purpose of:: To decrease pain, To increase ROM, To improve muscle performance and motor function, To improve ability to perform ADL's, To increase tolerance to activity/condition/position, To improve performance and independence with ADL's, To improve ability of physical actions for home/community/work/leisure, To improve health of tissue, To decrease soft tissue restriction, To increase flexibility/ROM, To reduce risk of recurrence, To prevent re-injury Therapeutic Exercise to Include: Strength training, Postural training, Flexibilty training, Active ROM For the Purpose of:: To decrease pain, To increase ROM, To improve muscle performance and motor function, To increase tolerance to activity/condition/position, To improve performance and independence with ADL's, To improve ability of physical actions for home/community/work/leisure, To improve health of tissue, To decrease soft tissue restriction, To increase flexibility/ROM, To prevent re-injury TENS: Yes IF ES: Yes Cryotherapy (ice pack, ice massage): Yes Thermo therapy (hot pack): Yes Ultrasound (thermal/non thermal): Yes For the Purpose of:: To decrease pain, To increase ROM, To improve nutrient delivery to tissue, To increase oxygenation perfusion, To improve health of tissue, To decrease soft tissue restriction Thank you for the opportunity to evaluate your patient. For Medicare and Medicare HMO plans, please review the plan of care and approve it. It will need to be FAXED BACK to us at [phone] for Medicare purposes. For Medicare only, by signing this I certify the plan of care. Please let me know if there are questions or concerns regarding this plan of care. Physician Signature: Date:
--- NOTE | 2021-09-19 14:54 | HP.PT.NRP ---
BASSAM JAIN was seen in my office for initial evaluation on 05/15/21. The following Plan of Care was established for this patient: Initial Frequency: 2x /Week Initial Duration: 4 Weeks Patient/Client Instruction: Educate patient on: Condition, Plan of Care For the Purpose of:: To decrease pain, To increase ROM, To improve muscle performance and motor function, To improve ability to perform ADL's, To increase tolerance to activity/condition/position, To improve performance and independence with ADL's, To improve ability of physical actions for home/community/work/leisure, To improve health of tissue, To decrease soft tissue restriction, To increase flexibility/ROM, To reduce risk of recurrence, To prevent re-injury Therapeutic Exercise to Include: Strength training, Endurance training, Body mechanics, Postural training, Flexibilty training, Dynamic Lumbar Stabilization For the Purpose of:: To decrease pain, To increase ROM, To improve muscle performance and motor function, To improve ability to perform ADL's, To increase tolerance to activity/condition/position, To improve ability of physical actions for home/community/work/leisure, To improve health of tissue, To decrease soft tissue restriction, To increase flexibility/ROM, To reduce risk of recurrence, To prevent re-injury TENS: Yes IF ES: Yes Cryotherapy (ice pack, ice massage): Yes Thermo therapy (hot pack): Yes Ultrasound (thermal/non thermal): Yes For the Purpose of:: To decrease pain, To increase ROM, To improve nutrient delivery to tissue, To increase oxygenation perfusion, To improve health of tissue, To decrease soft tissue restriction, To increase flexibility/ROM This patient was last seen in our office . Pertinent comments regarding their Physical therapy will appear below: Patient was seen for PT for low back pain focusing on DLS , postural ex's and strengthening modalities thus d/c At this point I will be discontinuing this patient from physical therapy. I would be happy to see this patient again in the future if found appropriate by the physician. Thank you! Jensen Reed, PT, Cert MDT, OCS Balance/Gait/Functional tests - Balance/Special Test Scores Oswestry Low Back Score: 6 Oswestry Neck Score: 24
== END 2021-07-04 19:00 | disposition home or self-care (01) ==
LOC: PT 14:30
PROVIDERS: PCP Family Medicine; Referring Provider Chiropractor; Visit Provider Chiropractor
DX: M54.9 Dorsalgia, unspecified (principal); M54.12 Radiculopathy, cervical region
CPT/HCPCS: 97014; 97035; 97110; 97162; 97530; G0283

== ENCOUNTER 2021-07-12 14:16 | Outpatient (CLI) | payer MEDICARE, OTHER, SELFPAY ==
--- NOTE | 2021-07-12 14:21 | RAD_ITS ---
STUDY: X-RAY - LEFT WRIST REASON FOR EXAM: Female, 75 years old. FALL ON ARM TECHNIQUE: 3 view(s) of the wrist were obtained. COMPARISON: None. FINDINGS: Normal visualized distal radius and ulna. There is degenerative arthrosis of the radiocarpal articulation. Normal distal radioulnar articulation. Normal carpal bones. Normal carpal articulations. Normal carpometacarpal articulation of the thumb. Normal second through fifth carpometacarpal articulations. Normal visualized metacarpal bones. The soft tissue structures are unremarkable. RAD/Wrist min 3 Views IMPRESSION: Mild degree of degenerative changes at the radiocarpal joint. Electronically Signed: Kenneth Dominguez MD at 15:33 EST ,
--- NOTE | 2021-07-12 14:25 | RAD_ITS ---
STUDY: X-RAY - LEFT RADIUS AND ULNA REASON FOR EXAM: Female, 75 years old. Fall on outstretched arm in March TECHNIQUE: 2 view(s) of the forearm. COMPARISON: None. FINDINGS: There is no demonstrated soft tissue swelling. Normal visualized radius. Normal visualized ulna. RAD/Forearm 2 Views IMPRESSION: Normal x-ray examination of the radius and ulna. Electronically Signed: Kenneth Dominguez MD at 15:33 EST ,
[2021-07-12 15:33] LABS: Protein, Urine (Random) 13.1 mg/dL (<11.9); Protein:Creat Ratio 86 mg/g CRE (0-200)
[2021-07-12 15:48] LABS: Anion Gap 4 (5-15); BUN 20 mg/dL (7-18); BUN/Creat Ratio 12.6 RATIO (10-20); Calcium,Total 9.2 mg/dL (8.5-10.1); Chloride 101 mmol/L (98-107); Creatinine, Serum 1.59 mg/dL (0.55-1.02); EST Glomerular Filtration Rate 34 mL/min (>60); Est Glom Filt Rate - Afr Amer 41 mL/min (>60); Glucose 191 mg/dL (74-106); Potassium 4.8 mmol/L (3.5-5.1); Sodium Level 137 mmol/L (136-145)
== END 2021-07-12 23:59 | disposition short-term general hospital (02) ==
LOC: MTLAB 14:18
PROVIDERS: PCP Family Medicine; Referring Provider Family Medicine; Visit Provider Family Medicine
DX: M25.532 Pain in left wrist (principal); N18.32 Chronic kidney disease, stage 3b
CPT/HCPCS: 36415; 73090; 73110; 80048; 82570; 84156

== ENCOUNTER 2021-07-26 12:28 | Outpatient (CLI) | payer MEDICARE, OTHER, SELFPAY ==
--- NOTE | 2021-07-26 12:37 | MRI_ITS ---
STUDY: MRI CERVICAL SPINE WITHOUT CONTRAST REASON FOR EXAM: Female, 75 years old. L CERVICAL RADICULOPATHY breast CA, No prior cervical surgery TECHNIQUE: Standardized fat and water weighted pulse sequences were obtained in the sagittal and axial planes. Comparison: xr May 28 2021 11:43am FINDINGS: Normal foramen magnum and brainstem-cervical cord junction. Normal craniovertebral junction. Normal anterior atlantoaxial articulation. Normal odontoid process. Normal cervical lordosis. Normal vertebral bodies and posterior osseous elements. C2-3: Normal endplates. Normal disc height and morphology. Normal central canal and intervertebral neuroforamina. C3-4: Normal endplates. Normal disc height and morphology. Normal central canal and intervertebral neuroforamina. C4-5: Loss of intervertebral disc height. There is endplate spondylosis of the vertebral body. Posterior disc bulge. There is bilateral facet arthropathy. C5-6: Loss of intervertebral disc height. There is endplate spondylosis of the vertebral body. Normal central canal and intervertebral neuroforamina. There is bilateral facet arthropathy. C6-7: Loss of intervertebral disc height. There is endplate spondylosis of the vertebral body. Normal central canal and intervertebral neuroforamina. There is bilateral facet arthropathy. Focus of low T1 and T2 signal in the vertebral body of (thoracic 1 and thoracic 2) T1 and T2. At T2, this involves a majority of the vertebral body and extends to the right pedicle. At T1, this involves the left side of the vertebral body and is circular. Focus of low T1 and T2 signal in the left lamina of C7, C5, and C4. At C4 and C5, the lamina is thickened. There are posterior disc bulges at these levels. The combined findings are causing mild spinal stenosis. Normal cervical cord. Normal visualized soft tissue structures. MRI/Spine Cervical (Routine) IMPRESSION: Multilevel degenerative changes, as described above. 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 There is mild expansile enlargement of the lamina of C4 and C5 causing mild spinal stenosis. Electronically Signed: Duke Coates MD at 14:30 EST ,
== END 2021-07-26 23:59 | disposition home or self-care (01) ==
LOC: MRI 12:29
PROVIDERS: PCP Family Medicine; Referring Provider Family Medicine; Visit Provider Family Medicine
DX: M54.12 Radiculopathy, cervical region (principal)
CPT/HCPCS: 72141

== ENCOUNTER 2021-09-04 08:17 | Outpatient (CLI) | payer MEDICARE, OTHER, SELFPAY ==
--- NOTE | 2021-09-11 10:00 | PET_ITS ---
EXAMINATION: FDG PET/CT INDICATIONS: A 76-year-old female with history of carcinoma of the breast presenting for restaging examination. COMPARISON EXAMINATION: None available TECHNIQUE: Following the intravenous administration of 12.5 mCi of F-18 deoxyglucose via the right antecubital fossa, multiplanar image acquisitions of the neck, chest, abdomen and pelvis to level of mid thigh, obtained at one hour post radiopharmaceutical administration contemporaneously interpreted with the current CT of the neck, chest, abdomen and pelvis to level of mid thigh, dated 09/11/21 via coregistration reveal: SERUM GLUCOSE LEVEL: 169 mg/dl. HEIGHT: 59 inches. WEIGHT: 146 lbs. FINDINGS: 1. There is no quantitative scintigraphic evidence of abnormal increased glucose metabolism on meticulous inspection of whole body acquisitions to include all three axis reconstructions. 2. Normal physiologic distribution of the radiopharmaceutical is apparent in the hepatic and splenic parenchyma, both renal units, bladder and visualized intestinal tract. The visualized portion of the cerebral cortical-subcortical structures demonstrate symmetric and preserved glucose metabolism. Diffuse radiopharmaceutical concentration is noted in all four quadrants of the abdomen and pelvis. Prominent thoracic paravertebral muscle tension artifact is defined. Pertinent CT findings are as follows: CHEST: There is atherosclerotic calcification defined in the thoracic aorta without evidence of dilatation-aneurysm formation. Coronary arterial calcification is observed. Surgical clip placement is defined in the left retropectoral and axillary regions. The left breast is surgically absent. Subcentimeter right axillary soft tissue densities with fatty hilus are non-glucose avid. Non-calcified parenchymal densities defined in the bilateral hemithorax reveal no evidence of quantitatively significant increased FDG uptake. ABDOMEN AND PELVIS: There is atherosclerotic calcification defined in the abdominal aorta without evidence of dilatation-aneurysm formation. Pelvic arterial calcification is defined. Bilateral inguinal soft tissue densities with fatty hilus are ametabolic. Calcifications are manifest in the lower pelvis in proximity to the adnexal regions without evidence of facilitated FDG uptake. SKELETAL: Degenerative changes are noted in the cervical, thoracic and lumbar spine without evidence of increased radiopharmaceutical concentration. There is evidence of apparent vertebroplasty noted at the level of the first-second thoracic vertebrae. There is no evidence of sclerotic, mixed sclerotic-lytic and/or lytic changes noted on review of the skeletal structures manifesting an increase in glucose metabolism. PET/PET/CT Tumor Base -Thigh Subs IMPRESSION: 1. NEGATIVE EXAMINATION. There is no definitive quantitative scintigraphic evidence of recurrent-metastatic/viable neoplasm. Electronic Signature Alphonso Baird D.O. Accurate Quantification of SUVs for this report are calculated using the exclusive [employer] ([employer]) Technology. ([place].S. Patent No. [id number]). Standardization and correction of the FDG SUV metric via [employer] technology allow for vendor non-specific objective quantitative examination comparison and optimization of the sensitivity and specificity of the FDG PET-CT examination. Electronically Signed: Alphonso Baird DO at 22:10 EDT ,
== END 2021-09-04 23:59 | disposition home or self-care (01) ==
PROVIDERS: PCP Family Medicine; Referring Provider Internal Medicine Hematology & Oncology; Visit Provider Internal Medicine Hematology & Oncology
DX: C50.812 Malignant neoplasm of overlapping sites of left female breast (principal); C79.51 Secondary malignant neoplasm of bone; Z17.0 Estrogen receptor positive status [ER+]
CPT/HCPCS: 78815; A9552; A9595

== ENCOUNTER 2021-10-25 10:50 | Inpatient (IN) | payer MEDICARE, OTHER, SELFPAY ==
[2021-10-25] VITALS (16 sets, daily range): BP systolic 125–183; BP diastolic 65–74; PULSE 66–88; RESP 12–18; TEMP 36.6–38; O2SAT 88–100; BMI 28.8; BMI 28.0
--- NOTE | 2021-10-25 11:05 | EKG12_ITS ---
Test Reason : WEAKNESS Blood Pressure : / mmHG Vent. Rate : 071 BPM Atrial Rate : 071 BPM P-R Int : 162 ms QRS Dur : 092 ms QT Int : 392 ms P-R-T Axes : -20 032 -23 degrees QTc Int : 425 ms Sinus rhythm with occasional Premature ventricular complexes T wave abnormality, consider anterior ischemia Abnormal ECG Confirmed by DANIAL RÍOS, JONA ([id number]), editor farm journal RICKIE BROWN ([id number]) on 10/28/2021 1:51:57 PM Referred By: ALEISHA Confirmed By:JONA BARROW MD
--- NOTE | 2021-10-25 11:06 | EX.ED.DYSGE1 ---
HPI <SUSANA Henry - Last Filed: 10/25/21 15:28> History of Present Illness Chief Complaint: Weakness Narrative Narrative: 76-year-old female with PMH of HTN, HLD, CKD, DM 1 on insulin pump, metastatic breast cancer s/p left mastectomy on Ibrance presents with 3-day history of fever, chills, fatigue, decreased appetite and urinary frequency. She has been tired and had low blood pressures at home. She vomited once last night. She denies cold symptoms, cough, chest pain, or shortness of breath. No abdominal pain, diarrhea, or bloody stools. She has had urinary frequency but no burning or hematuria. Denies history of frequent UTIs. She went to her oncologist's office this morning, Dr. Stanford at [facility], for routine blood work but when she told them what was going on and they advised her to go to the ED. He called and states that blood work from this morning showed low platelets. She is on a medication called Ibrance which can cause thrombocytopenia. PFSH <SUSANA Henry - Last Filed: 10/25/21 15:28> [facility] Medical History Acquired absence of left breast and nipple Acute renal failure Arthritis Back problem Bone metastases Breast asymmetry Breast cancer, left Breast ptosis Cataracts, bilateral Diabetes mellitus Disproportion of reconstructed breast Environmental allergies Essential (primary) hypertension Estrogen receptor positive status (ER+) Facet arthropathy, lumbar Hearing problem Hyperlipidemia Hyperthyroidism Invasive lobular carcinoma of left breast in female Inversion of left nipple Kidney disease Metastatic breast cancer Osteoarthritis Osteoporosis Segmental and somatic dysfunction of lumbar region Segmental and somatic dysfunction of pelvic region Type 1 diabetes mellitus Vision problems Home Medications anastrozole 1 mg tablet 1 mg PO DAILY 10/25/19 [History Last Taken 10/25/21] denosumab 60 mg/mL subcutaneous syringe 60 mg SC QMONTH ml 01/05/20 [History Last Taken Unknown] cholecalciferol (vitamin D3) 25 mcg (1,000 unit) capsule 2,000 unit PO BID cap 07/05/20 [History Last Taken 10/25/21] ranolazine 500 mg tablet,extended release,12 hr 500 mg PO DAILY #90 tab 08/05/21 [Rx Last Taken 10/25/21] Ibrance 75 mg PO DAILY 10/25/21 [History Last Taken 10/20/21] insulin aspart U-100 [Novolog U-100 Insulin aspart] 60 unit SUBCUT DAILY 10/25/21 [History Last Taken 10/25/21] levothyroxine 25 mcg capsule 25 mcg PO QDAY 10/25/21 [History Last Taken 10/23/21] metoprolol succinate 100 mg PO DAILY 10/25/21 [History Last Taken 10/24/21] simvastatin 10 mg PO QHS 10/25/21 [History Last Taken 10/23/21] levofloxacin 750 mg PO DAILY #5 tab 10/27/21 [Rx Last Taken Unknown] Allergy/AdvReac Type Severity Reaction Status Date / Time codeine AdvReac Vomiting Verified 10/25/21 10:54 hydrocodone AdvReac Vomiting Verified 10/25/21 10:54 meperidine [From Demerol] AdvReac Vomiting Verified 10/25/21 10:54 Family History Father Myocardial infarction <55 Heart disease Hypertension High cholesterol Mother Osteoporosis Skin cancer Surgical History History of left breast biopsy (06/2019) History of left heart catheterization (10/30/06) History of modified radical mastectomy of left breast (08/05/19) History of tubal ligation Status post right breast biopsy Social History Smoking Status: Never smoker alcohol intake: current alcohol intake frequency: holidays/special occasions only substance use type: does not use caffeine: Yes Type: coffee Number of servings: 2 additional social history: DOES USE ASPIRIN DOES NOT USE IBUPROFEN ROS <SUSANA Henry - Last Filed: 10/25/21 15:28> ROS ED ROS Narrative Constitutional: Positive for fever, chills, malaise. Eyes: Negative for visual change. ENT: Negative for sore throat, ear pain, rhinorrhea. CVS: Negative for palpitations, chest pain, syncope. Respiratory: Negative for shortness of breath, cough, orthopnea. GI: Positive for nausea, vomiting. Negative for abdominal pain, diarrhea, constipation, melena, hematochezia. : Positive for frequency. Negative for dysuria, hematuria. Neuro: Negative for headache, motor/sensory dysfunction. Skin: Negative for rash, abscess, or wound. Musc: Negative for joint pain, swelling, trauma. Heme: Negative for easy bruising, bleeding, lymphadenopathy. EXAM <SUSANA Henry - Last Filed: 10/25/21 15:28> Physical Exam Narrative Exam Narrative: CONST: Patient sitting in no acute distress. EYES: Normal inspection. ENT: Normal inspection, moist mucous membranes. NECK: Normal inspection. RESP: No respiratory distress, CTAB. CVS: Regular rate and rhythm, no murmur, no gallop. ABD: Soft and nontender, no guarding or rebound, nondistended. Back: Normal inspection, no CVA tenderness. SKIN: Color normal, no rash, warm, dry, intact. EXTREMITIES: Normal appearance, no pedal edema. NEURO: Oriented x4. PSYCH: Normal affect. Const Vital Signs: 10/25/21 10:51 10/25/21 10:53 10/25/21 11:00 Temperature 98 F 98 F Temperature Source Temporal Temporal Pulse Rate 77 77 Respiratory Rate 18 18 Respiratory Effort Non-Labored Blood Pressure 125/65 H 125/65 H Blood Pressure Mean 85 85 Pulse Ox 99 99 Oxygen Delivery Method Room Air Room Air Oxygen Flow Rate (L/min) 10/25/21 11:48 10/25/21 11:53 10/25/21 12:07 Temperature 98.1 F 98.1 F Temperature Source Temporal Temporal Pulse Rate 67 Respiratory Rate 12 Respiratory Effort Blood Pressure 183/72 H Blood Pressure Mean 109 Pulse Ox 89 97 Oxygen Delivery Method Room Air Room Air Oxygen Flow Rate (L/min) 10/25/21 13:03 10/25/21 13:28 10/25/21 13:29 Temperature Temperature Source Pulse Rate 73 73 Respiratory Rate 15 16 Respiratory Effort Blood Pressure Blood Pressure Mean Pulse Ox 98 88 100 Oxygen Delivery Method Nasal Cannula Room Air Nasal Cannula Oxygen Flow Rate (L/min) 2 3 10/25/21 14:02 Temperature Temperature Source Pulse Rate 66 Respiratory Rate 12 Respiratory Effort Blood Pressure Blood Pressure Mean Pulse Ox 98 Oxygen Delivery Method Non-Rebreather @ 15L/min Oxygen Flow Rate (L/min) 2 <Dr. Divya Stratton DO - Last Filed: 10/29/21 07:23> Physical Exam Const Vital Signs: 10/25/21 10:51 10/25/21 10:53 10/25/21 11:00 Temperature 98 F 98 F Temperature Source Temporal Temporal Pulse Rate 77 77 Respiratory Rate 18 18 Respiratory Effort Non-Labored Blood Pressure 125/65 H 125/65 H Blood Pressure Mean 85 85 Pulse Ox 99 99 Oxygen Delivery Method Room Air Room Air Oxygen Flow Rate (L/min) 10/25/21 11:48 10/25/21 11:53 10/25/21 12:07 Temperature 98.1 F 98.1 F Temperature Source Temporal Temporal Pulse Rate 67 Respiratory Rate 12 Respiratory Effort Blood Pressure 183/72 H Blood Pressure Mean 109 Pulse Ox 89 97 Oxygen Delivery Method Room Air Room Air Oxygen Flow Rate (L/min) 10/25/21 13:03 10/25/21 13:28 10/25/21 13:29 Temperature Temperature Source Pulse Rate 73 73 Respiratory Rate 15 16 Respiratory Effort Blood Pressure Blood Pressure Mean Pulse Ox 98 88 100 Oxygen Delivery Method Nasal Cannula Room Air Nasal Cannula Oxygen Flow Rate (L/min) 2 3 10/25/21 14:02 Temperature Temperature Source Pulse Rate 66 Respiratory Rate 12 Respiratory Effort Blood Pressure Blood Pressure Mean Pulse Ox 98 Oxygen Delivery Method Non-Rebreather @ 15L/min Oxygen Flow Rate (L/min) 2 [facility] <SUSANA Henry - Last Filed: 10/25/21 15:28> [facility] Narrative Medical decision making narrative: Patient presents with recent fever and malaise. She is on oral chemotherapy for history of breast cancer and also has type 1 diabetes. She appears well and nontoxic. Afebrile and vital signs within normal limits. She did take Tylenol prior to arrival. Her medical exam is unremarkable. Labs show worsening leukopenia at 1.0, anemia of 9.6, and thrombocytopenia of 32. She also is mildly hyponatremic and hypokalemic. Creatinine of 1.76 is around her baseline. Lactate is 2.1. Initially IV fluids and Rocephin had been started for a suspected urinary source with her report of urinary frequency. However, CXR and UA are both negative for infectious process. While in the ED nursing staff reported patient became hypoxic on room air and she was placed on 2 L. She has no recent cough or shortness of breath. Ambulatory pulse ox will be obtained to determine if this is a true reading. She was around 92% with ambulation but when back in bed was around 80% and placed on 2 L. COVID and influenza testing is negative. CTA was obtained to rule out PE versus pneumonia. There are are nonspecific groundglass areas in both lungs which may be early pneumonitis. She has been treated with Rocephin and after the hospitalist got her oncologist's recommendations she was also given meropenem. Patient will be admitted for further treatment of neutropenic fever and possible pneumonitis as a source. Diagnoses 1. Neutropenic fever 2. Pancytopenia 3. Hypoxia 3. Pneumonitis Lab Data Labs: Laboratory Results - last 24 hr 10/25/21 11:31 Diff Path Review Reviewed Radiography Diagnostic Testing: Clinical Impression(s) from Imaging Studies Chest X-Ray 10/25/21 11:46 IMPRESSION: No acute abnormality is seen. Electronically Signed: Kenneth Dominguez MD at 12:24 EDT , Chest CTA 10/25/21 14:45 IMPRESSION: Nonspecific focal areas of groundglass appearance in both lungs worse in the upper lobes. Early pneumonitis should be ruled out. Sclerotic metastasis involving the T1 and T2 vertebrae. Electronically Signed: Kenneth Dominguez MD at 15:06 EDT , ED attending interpretation shows normal heart size, no acute infiltrate, edema, or effusion. <Dr. Divya Stratton, DO - Last Filed: 10/29/21 07:23> [facility] Narrative Medical decision making narrative: Patient evaluated independently and in conjunction with physician assistant store manager operations. Agree with note above unless documented otherwise. I was personally present or immediately available for all clinically relevant procedures and performed my own physical exam and review of systems. Lab Data Attestation: I reviewed the patient's lab results. Labs: Laboratory Results - last 24 hr 10/25/21 11:31 Diff Path Review Reviewed Radiography Chest X-Ray - ED: 1 View, Read by ED Physician, Read by Radiologist and No Acute Disease Diagnostic Testing: Clinical Impression(s) from Imaging Studies Chest X-Ray 10/25/21 11:46 IMPRESSION: No acute abnormality is seen. Electronically Signed: Kenneth Dominguez MD at 12:24 EDT , Chest CTA 10/25/21 14:45 IMPRESSION: Nonspecific focal areas of groundglass appearance in both lungs worse in the upper lobes. Early pneumonitis should be ruled out. Sclerotic metastasis involving the T1 and T2 vertebrae. Electronically Signed: Kenneth Dominguez MD at 15:06 EDT , Discharge Plan Triage Chief Complaint: Weakness ED Midlevel Provider: Celina Bates ED Provider: Divya Stratton Dx/Rx/DC Orders Clinical Impression: Neutropenic fever, Hyponatremia, Thrombocytopenia, Lactic acidosis Primary Care Provider: Celina Dangelo Disposition Disposition: Acute Care [facility]
--- NOTE | 2021-10-25 11:46 | RAD_ITS ---
STUDY: X-RAY CHEST REASON FOR EXAM: Female, 76 years old. Weakness and fatigue. Fever. TECHNIQUE: Single AP portable view of the chest. COMPARISON: None. FINDINGS: EKG electrodes are seen. Surgical clips are seen in the left axillary region. The lungs are clear and expanded. There is no demonstrated pleural abnormality. Normal size heart. Normal mediastinum and ruddy. Normal visualized pulmonary arteries. Normal visualized aortic arch and descending thoracic aorta. There are diffuse degenerative changes of the visualized thoracic spine. Normal visualized ribs, clavicles, and shoulders. There is no demonstrated abnormality of the visualized soft tissue structures of the upper abdomen. RAD/Chest 1 View (Portable) IMPRESSION: No acute abnormality is seen. Electronically Signed: Kenneth Dominguez MD at 12:24 EDT ,
[2021-10-25] MEDS: 0.9% Normal Saline 1,000 ML 999 ML IV (11:49)
[2021-10-25] MEDS: Ceftriaxone 1 GM/50 ML BAG IV (11:49)
[2021-10-25 11:58] LABS: Partial Thromboplast Time 24.4 Seconds (24.1-36.2)
[2021-10-25 12:05] LABS: ALB/GLOB Ratio 0.8 RATIO (0.9-2.4); AST(SGOT) 21 U/L (15-37); Alanine Aminotransfer ALT/SGPT 26 U/L (13-56); Albumin, Serum 2.6 g/dL (3.2-5.0); Alkaline Phosphatase 64 U/L (45-117); Anion Gap 8 (5-15); BUN 21 mg/dL (7-18); BUN/Creat Ratio 11.9 RATIO (10-20); Chloride 94 mmol/L (98-107); Creatinine, Serum 1.76 mg/dL (0.55-1.02); EST Glomerular Filtration Rate 30 mL/min (>60); Est Glom Filt Rate - Afr Amer 36 mL/min (>60); Estimated Creatinine Clearance 27.41 ml/min; Globulin 3.4 g/dL (2.2-4.2); Glucose 139 mg/dL (74-106); Potassium 3.4 mmol/L (3.5-5.1); Sodium Level 132 mmol/L (136-145)
[2021-10-25 12:19] LABS: Lactic Acid 2.1 mmol/L (0.4-1.9)
[2021-10-25 12:33] LABS: Absolute Lymphocyte Count 0.52 X10^3/uL (0.83-4.51); Absolute Neutrophil Count 0.4 X10^3/uL (2.0-7.7); Basophil# 0.01 X10^3/uL; Eosinophil# 0.01 X10^3/uL; Hematocrit 27.9 % (37-47); Hemoglobin 9.6 g/dL (12.0-15.0); Lymphocyte # 0.52 X10^3/ul (0.83-4.51); Lymphocyte % 53.1 % (19-41); Mean Corp Hgb Conc 34.4 g/dL (32-36); Mean Corpuscular Hgb 37.1 pg (27.0-32.0); Mean Corpuscular Volume 107.7 fL (81-99); Mean Platelet Vol. 13.1 fl (6.2-12.0); Monocyte# 0.05 X10^3/uL; Monocyte% 5.1 % (0-10); NRBC Flagged by Analyzer 0 % (0-5); Neutrophil # 0.39 X10^3/uL (2.7-7.7); Neutrophil % 39.8 % (47-70); POSITIVE COUNT YES; POSITIVE DIFFERENTIAL YES; POSITIVE MORPHOLOGY YES; Platelet Count 32 K/mm3 (150-450); RBC Distribution Width CV 13.1 % (11.6-14.6); RBC Distribution Width SD 51.5 fl (35.1-43.9); Red Blood Count 2.59 M/mm3 (4.2-5.4)
[2021-10-25 12:36] LABS: Differential Indicated SCAN CRITERIA MET
[2021-10-25 13:04] LABS: Bacteria 0 SEEN /hpf (None Seen); Mucous, Urine 0 SEEN /hpf (<or=2+); Red Blood Cells-Urine 0 SEEN /hpf (0-5); Squamous Epithelial Cells - UA 0 SEEN /hpf (5-10); White Blood Cells 0 SEEN /hpf (0-5)
[2021-10-25 13:10] LABS: Color, Urine Yellow (Yellow); Glucose, Dipstick Normal (Normal); Ketone-Dipstick Negative (Negative); Leukocyte Esterase-Dipstick Negative /ul (Negative); Nitrite-Dipstick Negative (Negative); Occult Blood-Urine Negative /ul (Negative); Protein-Dipstick Negative (Negative); Urine Bilirubin Dipstick Negative (Negative); Urine Clarity Sl. Cloudy (Clear); Urine Urobilinogen Normal (Normal)
--- NOTE | 2021-10-25 14:45 | CT_ITS ---
STUDY: CTA CHEST REASON FOR EXAM: Female, 76 years old. Dyspnea, hypoxia -- rule out PE RADIATION DOSAGE (If Supplied By Facility): CTDIvol = ( 4.82 ) mGy, DLP = ( 182.05 ) mGycm TECHNIQUE: The examination was performed with the intravenous administration of IV 100mL [id number]-[id number]. Post-processing of the angiographic images was performed, with multiplanar reformation and 3D reconstruction. Individualized dose optimization techniques were used for this CT. COMPARISON: Comparison is made with prior chest radiograph done earlier in the day. FINDINGS: Normal enhancement of the main pulmonary artery and right and left pulmonary arteries. Normal enhancement of the bilateral peripheral pulmonary arteries. There is no demonstrated pulmonary embolism. Normal thoracic aorta and visualized great vessels. There is no demonstrated aortic dissection. There are calcifications of the coronary arteries. Normal mediastinum. Normal hilar regions. Normal visualized trachea and bronchi. Hyperinflation. Mild degree of emphysematous changes. Nonspecific focal areas of groundglass appearance involving both lungs worse in the upper lobes. Early onset of a pneumonitis should be ruled out. Normal pleura. Pectus excavatum deformity. There are degenerative changes of thoracic spine. Sclerotic foci are seen in the T1 and T2 vertebrae. Metastatic deposit should be ruled out. Normal visualized upper abdomen. CT/CTA Chest W/WO Contrast IMPRESSION: Nonspecific focal areas of groundglass appearance in both lungs worse in the upper lobes. Early pneumonitis should be ruled out. Sclerotic metastasis involving the T1 and T2 vertebrae. Electronically Signed: Kenneth Dominguez MD at 15:06 EDT ,
[2021-10-25 15:44] LABS: Reflex Lactate? Y
--- NOTE | 2021-10-25 16:00 | HP.PCM.HOS_ITS ---
Documented by User: Faisal MEZA 10/25/21 16:29 HPI - General General Date of Admission: 10/25/21 Date of Service: 10/25/21 Chief Complaint: Fever HPI Narrative BASSAM JAIN is a 76-year-old female who presents to the ED at [facility] on 10/25/2021 with a chief complaint of fever. Patient reports that for the last 3 days she has been experiencing fever, chills, fatigue, decreased appetite and increased urinary frequency. Patient denies any pain with urination or difficulty urinating. Patient denies any cold symptoms to include cough, sputum production or shortness of breath. Patient denies any chest pain. Patient proceeded to a scheduled oncology appointment with Dr. Stanford, to draw a routine blood work which showed a low white count and platelets. Past medical history is significant for HTN, HLD, CKD, DM 1 on insulin pump, metastatic breast cancer s/p left mastectomy on Ibrance. Patient's vital signs in the ED are stable and patient has been afebrile. CBC shows WBCs at 1.0, hemoglobin at 9.6 and platelets at 32,000. BMP shows sodium at 132, potassium 3.4, chloride 94, BUN 21, creatinine 1.76 and lactate at 2.1. UA is unremarkable. COUNTS INCLUDE 234 BEDS AT THE [facility] Medical History Acquired absence of left breast and nipple Acute renal failure Arthritis Back problem Bone metastases Breast asymmetry Breast cancer, left Breast ptosis Cataracts, bilateral Diabetes mellitus Disproportion of reconstructed breast Environmental allergies Essential (primary) hypertension Estrogen receptor positive status (ER+) Facet arthropathy, lumbar Hearing problem Hyperlipidemia Hyperthyroidism Invasive lobular carcinoma of left breast in female Inversion of left nipple Kidney disease Metastatic breast cancer Osteoarthritis Osteoporosis Segmental and somatic dysfunction of lumbar region Segmental and somatic dysfunction of pelvic region Type 1 diabetes mellitus Vision problems Home Medications anastrozole 1 mg tablet 1 mg PO DAILY 10/25/19 [History Last Taken 10/25/21] denosumab 60 mg/mL subcutaneous syringe 60 mg SC QMONTH ml 01/05/20 [History Last Taken Unknown] cholecalciferol (vitamin D3) 25 mcg (1,000 unit) capsule 2,000 unit PO BID cap 07/05/20 [History Last Taken 10/25/21] ranolazine 500 mg tablet,extended release,12 hr 500 mg PO DAILY #90 tab 08/05/21 [Rx Last Taken 10/25/21] insulin aspart U-100 [Novolog U-100 Insulin aspart] 60 unit SUBCUT DAILY 10/25/21 [History Last Taken 10/25/21] levothyroxine 25 mcg capsule 25 mcg PO QDAY 10/25/21 [History Last Taken 10/23/21] metoprolol succinate 100 mg PO DAILY 10/25/21 [History Last Taken 10/24/21] palbociclib [Ibrance] 75 mg PO DAILY 10/25/21 [History Last Taken 10/20/21] simvastatin 10 mg PO QHS 10/25/21 [History Last Taken 10/23/21] Allergy/AdvReac Type Severity Reaction Status Date / Time codeine AdvReac Vomiting Verified 10/25/21 10:54 hydrocodone AdvReac Vomiting Verified 10/25/21 10:54 meperidine [From Demerol] AdvReac Vomiting Verified 10/25/21 10:54 Family History Father Myocardial infarction <55 Heart disease Hypertension High cholesterol Mother Osteoporosis Skin cancer Surgical History History of left breast biopsy (06/2019) History of left heart catheterization (10/30/06) History of modified radical mastectomy of left breast (08/05/19) History of tubal ligation Status post right breast biopsy Social History Smoking Status: Never smoker alcohol intake: current alcohol intake frequency: holidays/special occasions only substance use type: does not use caffeine: Yes Type: coffee Number of servings: 2 additional social history: DOES USE ASPIRIN DOES NOT USE IBUPROFEN ROS Constitutional Constitutional: Reports chills, fatigue, fever(s) and weakness; Denies anorexia, change in weight, malaise, night sweats or other Eyes Eyes: Denies blurry vision, change in eye color, change in vision, discharge from eye(s), double vision, erythema, eye pain, loss of vision or other ENT HEENT: Denies abnormal hearing, dysphagia, ear pain, epistaxis, headache(s), hearing loss, nasal congestion, nasal discharge, post nasal drip, sinus pressure, sore throat or other Cardiovascular Cardiovascular: Denies chest pain, claudication, dyspnea on exertion, edema, lightheadedness, orthopnea, palpitations, paroxysmal nocturnal dyspnea, rapid heart rate, syncope or other Respiratory/Chest Respiratory/Chest: Denies cough, dyspnea, excessive phlegm production, hemoptysis, productive cough, shortness of breath at rest, shortness of breath with exertion, wheezing or other Gastrointestinal Gastrointestinal: Reports diarrhea; Denies systems reviewed and no addt'l complaints, except as documented, as per HPI, none, abdominal pain, anorexia, belching, bloating, change in bowel habits, change in stool character, chewing difficulty, coffee ground emesis, constipation, cramping, dry heaves, dyspepsia, dysphagia, early satiety, excessive flatus, fecal incontinence, heartburn, hematemesis, hematochezia, hemorrhoids, loose stools, melena, nausea, odynophagia, rectal bleeding, taste impaired, tenesmus, vomiting, weight changes or other Genitourinary Genitourinary: Reports urinary frequency; Denies burning urination, difficulty urinating, dysuria, hematuria, nocturia, urinary hesitancy, urinary incontinence, urinary urgency or other Musculoskeletal Musculoskeletal: Denies arthralgias, back pain, joint pain, joint stiffness, joint swelling, myalgias, neck pain or other Neurologic Neurologic: Denies abnormal gait, abnormal speech, confusion, disequilibrium, dizziness, focal weakness, headache(s), numbness, paresthesias, seizure-like activity, seizures, syncope, tingling, tremor(s) or other Psychiatric Psychiatric: Denies anxiety, depression, homicidal ideation, suicidal ideation or other Endocrine Endocrinology: Denies change in body appearance, cold intolerance, excessive sweating, heat intolerance, polydipsia, polyuria or other Hematologic/Lymphatic Hematologic/Lymphatic: Denies anemia, easy bleeding, easy bruising, lymphadenopathy or other Allergic/Immunologic Allergic/Immunologic: Denies rhinitis, hives, eczemia, asthma or other Vital Signs Vital Signs Vital Signs: 10/25/21 10:51 10/25/21 10:53 10/25/21 11:00 Temperature 98 F 98 F Temperature Source Temporal Temporal Pulse Rate 77 77 Respiratory Rate 18 18 Respiratory Effort Non-Labored Blood Pressure 125/65 H 125/65 H Blood Pressure Mean 85 85 Pulse Ox 99 99 Oxygen Delivery Method Room Air Room Air Oxygen Flow Rate (L/min) 10/25/21 11:48 10/25/21 11:53 10/25/21 12:07 Temperature 98.1 F 98.1 F Temperature Source Temporal Temporal Pulse Rate 67 Respiratory Rate 12 Respiratory Effort Blood Pressure 183/72 H Blood Pressure Mean 109 Pulse Ox 89 97 Oxygen Delivery Method Room Air Room Air Oxygen Flow Rate (L/min) 10/25/21 13:03 10/25/21 13:28 10/25/21 13:29 Temperature Temperature Source Pulse Rate 73 73 Respiratory Rate 15 16 Respiratory Effort Blood Pressure Blood Pressure Mean Pulse Ox 98 88 100 Oxygen Delivery Method Nasal Cannula Room Air Nasal Cannula Oxygen Flow Rate (L/min) 2 3 10/25/21 14:02 10/25/21 15:35 Temperature 98.0 F Temperature Source Oral Pulse Rate 66 78 Respiratory Rate 12 13 Respiratory Effort Blood Pressure 162/74 H Blood Pressure Mean 103 Pulse Ox 98 99 Oxygen Delivery Method Non-Rebreather @ 15L/min Nasal Cannula Oxygen Flow Rate (L/min) 2 1 Weight Weight: 143 lb Body Mass Index (BMI) 28.8 Physical Exam Const alert and oriented x3 General Appearance: cooperative HEENT normocephalic, head/scalp atraumatic and hearing grossly normal bilaterally Eyes PERRL, EOMs intact bilaterally and conjunctivae normal Neck no lymphadenopathy, supple and no JVD Resp normal respiratory effort, no retractions and no use of accessory muscles Cardio regular rate, regular rhythm and no JVD GI normal to inspection, nondistended, normoactive bowel sounds and soft to palpation Extremity normal to inspection and full ROM Skin no rashes or lesions noted, no wounds and skin turgor normal Neuro CN's II-XII intact bilaterally Psych affect normal Results Lab / Micro Data Result Diagrams: 10/25/21 11:31 10/25/21 11:31 Labs: Laboratory Results - last 24 hr 10/25/21 11:31: WBC 1.0 L*, RBC 2.59 L, Hgb 9.6 L, Hct 27.9 L, MCV 107.7 H, MCH 37.1 H, MCHC 34.4, RDW Std Deviation 51.5 H, RDW Coeff of Alex 13.1, Plt Count 32 L*, MPV 13.1 H, Immature Gran % (Auto) 0.000, Neut % (Auto) 39.8 L, Lymph % (Auto) 53.1 H, [place] % (Auto) 5.1, Eos % (Auto) 1.0, Baso % (Auto) 1.0, Absolute Neuts (auto) 0.4 L, Absolute Lymphs (auto) 0.52 L, Nucleated RBC % 0, Differential Comment COMMENT, Diff Path Review October10/25/21 11:31: PT 13.0, INR 1.0, APTT 24.4 10/25/21 11:31: Sodium 132 L, Potassium 3.4 L, Chloride 94 L, Carbon Dioxide 30.0, Anion Gap 8, BUN 21 H, Creatinine 1.76 H, Estim Creat Clear Calc 27.41, Est GFR (MDRD) Af Amer 36 L, Est GFR (MDRD) Non-Af 30 L, BUN/Creatinine Ratio 11.9, Glucose 139 H, Calcium 10.0, Total Bilirubin 0.40, AST 21, ALT 26, Alkaline Phosphatase 64, Total Protein 6.0 L, Albumin 2.6 L, Globulin 3.4, Albumin/Globulin Ratio 0.8 L 10/25/21 11:31: Lactic Acid 2.1 H* 10/25/21 12:54: Urine Color Yellow, Urine Clarity Sl. Cloudy, Urine pH 7.0, Ur Specific [place] 1.010, Urine Protein Negative, Urine Glucose (UA) Normal, Urine Ketones Negative, Urine Occult Blood Negative, Urine Nitrite Negative, Urine Bilirubin Negative, Urine Urobilinogen Normal, Ur Leukocyte Esterase Negative, Urine RBC 0 SEEN, Urine WBC 0 SEEN, Ur Squamous Epith Cells 0 SEEN, Urine Bacteria 0 SEEN, Urine Mucus 0 SEEN Micro: Microbiology 10/25/21 13:07 Nasal Secretion SARS-CoV-2 & FLU Antigen (Rapid) - Final Radiology Impression Chest X-Ray 10/25/21 11:46 IMPRESSION: No acute abnormality is seen. Electronically Signed: Kenneth Dominguez MD at 12:24 EDT , Chest CTA 10/25/21 14:45 IMPRESSION: Nonspecific focal areas of groundglass appearance in both lungs worse in the upper lobes. Early pneumonitis should be ruled out. Sclerotic metastasis involving the T1 and T2 vertebrae. Electronically Signed: Kenneth Dominguez MD at 15:06 EDT , Assessment & Plan Assessment/Plan (1) Neutropenic fever: (2) Hyponatremia: (3) Thrombocytopenia: (4) Lactic acidosis: PLAN: Patient is a 76-year-old female who was presents to the ED at [facility] on 10/25/2021 with a chief complaint of fever. Patient will be admitted for evaluation management of neutropenic fever. 1) neutropenic fever Patient presents with a 3-day history of fever, chills, fatigue and increased urinary frequency. Infectious work-up thus far to include UA, chest x-ray and chest CTA, rapid COVID and flu are negative for any acute process.. Patient does follow with Dr. Stanford for Stage IV breast cancer status post left breast mastectomy and is on Ibrance. Chest CT-A was significant for sclerotic metastasis involving T1 and T2 vertebrae. WBCs and platelets are significantly decreased at 1 and 32 respectively. Plan; admit to PCU, initiate meropenem for appropriate antibiotic coverage, initiate Neulasta continue to monitor CBC and CMP, PT/OT eval ordered, will not consult heme-onc at this time, blood and urine cultures pending. 2) lactic acidosis Lactate elevated at 2.1, likely secondary to #1, although patient does not appear septic at this time. Plan; as above. 3) CKD stage IIIb Creatinine elevated at 1.76, baseline appears around 1.5. eGFR is 30. Will monitor. At the time of this dictation, patient home medications not reconciled. Will review at a later time. CODE STATUS: DNR CC?A, no intubation DVT prophylaxis - SCD's, chemoprophylaxis not indicated due to thrombocytopenia. Patient seen by Faisal Hawley PA-C, under the supervision of Dr. Nix. Has been on patient care: 25 minutes. Documented by User: Dr. Devante Nix, 10/25/21 17:22 HPI - General General Date of Admission: 10/25/21 COUNTS INCLUDE 234 BEDS AT THE [facility] Medical History Acquired absence of left breast and nipple Acute renal failure Arthritis Back problem Bone metastases Breast asymmetry Breast cancer, left Breast ptosis Cataracts, bilateral Diabetes mellitus Disproportion of reconstructed breast Environmental allergies Essential (primary) hypertension Estrogen receptor positive status (ER+) Facet arthropathy, lumbar Hearing problem Hyperlipidemia Hyperthyroidism Invasive lobular carcinoma of left breast in female Inversion of left nipple Kidney disease Metastatic breast cancer Osteoarthritis Osteoporosis Segmental and somatic dysfunction of lumbar region Segmental and somatic dysfunction of pelvic region Type 1 diabetes mellitus Vision problems Home Medications anastrozole 1 mg tablet 1 mg PO DAILY 10/25/19 [History Last Taken 10/25/21] denosumab 60 mg/mL subcutaneous syringe 60 mg SC QMONTH ml 01/05/20 [History Last Taken Unknown] cholecalciferol (vitamin D3) 25 mcg (1,000 unit) capsule 2,000 unit PO BID cap 07/05/20 [History Last Taken 10/25/21] ranolazine 500 mg tablet,extended release,12 hr 500 mg PO DAILY #90 tab 08/05/21 [Rx Last Taken 10/25/21] insulin aspart U-100 [Novolog U-100 Insulin aspart] 60 unit SUBCUT DAILY 10/25/21 [History Last Taken 10/25/21] levothyroxine 25 mcg capsule 25 mcg PO QDAY 10/25/21 [History Last Taken 10/23/21] metoprolol succinate 100 mg PO DAILY 10/25/21 [History Last Taken 10/24/21] palbociclib [Ibrance] 75 mg PO DAILY 10/25/21 [History Last Taken 10/20/21] simvastatin 10 mg PO QHS 10/25/21 [History Last Taken 10/23/21] Allergy/AdvReac Type Severity Reaction Status Date / Time codeine AdvReac Vomiting Verified 10/25/21 10:54 hydrocodone AdvReac Vomiting Verified 10/25/21 10:54 meperidine [From Demerol] AdvReac Vomiting Verified 10/25/21 10:54 Family History Father Myocardial infarction <55 Heart disease Hypertension High cholesterol Mother Osteoporosis Skin cancer Surgical History History of left breast biopsy (06/2019) History of left heart catheterization (10/30/06) History of modified radical mastectomy of left breast (08/05/19) History of tubal ligation Status post right breast biopsy Social History Smoking Status: Never smoker alcohol intake: current alcohol intake frequency: holidays/special occasions only substance use type: does not use caffeine: Yes Type: coffee Number of servings: 2 additional social history: DOES USE ASPIRIN DOES NOT USE IBUPROFEN Results Lab / Micro Data Result Diagrams: 10/25/21 11:31 10/25/21 11:31 Charges/Coding Addendum Addendum: Seen and examined independently of Faisal Hawley, she came to the emergency room today due to a fever that she has had at home over the last 2 days, she states that yesterday her fever was 102, the day before that it was a little over 100, she did not take her temperature today. Patient takes medication chronically for breast cancer. Patient denies any dysuria, chills, cough, or purulent sputum production. On examination she appeared in good health and spirits, she does not appear to be in any distress. Vital signs as documented. Skin warm and dry and without overt rashes, there is a remote left mastectomy present. Neck without JVD, thyroid appears normal, trachea is midline, neck is supple. Lungs clear, normal air movement was noted. Heart exam notable for regular rhythm, normal sounds and absence of murmurs, rubs or gallops. Abdomen unremarkable and without evidence of organomegaly, masses, or abdominal aortic enlargement, bowel sounds are present in all 4 quadrants, no abdominal tenderness was noted. Extremities nonedematous, no cyanosis was noted, no clubbing was noted. Neuro: Cranial nerves II through XII are grossly intact, no focal motor deficits were noted, sensation to light touch and pinprick is intact, motor exam 5/5 throughout. Psych: Patient is alert and oriented x3, she does not appear anxious or depressed, she does not appear agitated. Labs were remarkable for a white blood cell count of 1000, her absolute neutrophil count was 390, platelet count was 32,000, hemoglobin was 9.6. Patient's potassium was 3.4, creatinine was 1.76 and BUN was 21. Patient's sodium was slightly low at 132. Lactic acid was elevated at 2.1. Patient had a chest x-ray performed which showed no acute abnormality, patient underwent a CTA of the chest which showed no evidence of pulmonary emboli, there were nonspecific focal areas of groundglass appearance of both lungs worse in the upper lobes. There was also noted to be bone metastases involving T1 and T2 vertebrae. Impression: #1 neutropenic fever-patient has no documented evidence of infection at this time, she will be admitted to [facility], placed on IV meropenem, labs will be monitored #2 pancytopenia-secondary to chemotherapeutic medications for breast cancer-labs will be monitored, patient will be placed on Granix 300 mcg subcu daily. #3 stage IV breast cancer-patient's chemotherapeutic medication will be held at this time (Ibrance) #4 hyperlipidemia-patient is on a statin #5 hypothyroidism-patient is on Synthroid #6 lactic acidosis-etiology unclear at this point, lactic acid will be repeated #7 essential hypertension-patient will remain on her home medications #8 type 2 diabetes-patient has an insulin pump, this will be continued while she is in the hospital. I have reviewed Faisal Hawley's history and physical including his medical assessment and plan of care and with the above additions endorse it. Total cli nical time spent by myself addressing the patient's medical issues, reviewing the patient's data, and collaborating with the patient's care team: 45 minutes. Visit Charges Inpatient E&M: 19700 Init Hosp L3
[2021-10-25] MEDS: 0.9% Normal Saline 1,000 ML 75 ML IV (17:40)
[2021-10-25] MEDS: TBO-FILGRASTIM 300 MCG/0.5 ML ML SC (19:31)
[2021-10-25] MEDS: Acetaminophen 325 MG Tablet 650 MG PO (21:56)
[2021-10-25] MEDS: Atorvastatin Calcium 10 MG Tablet 5 MG PO (21:57)
[2021-10-25 23:21] LABS: Bedside Glucose 88 mg/dL (74-106)
[2021-10-26] VITALS (7 sets, daily range): BP systolic 138–142; BP diastolic 53–74; PULSE 82–102; RESP 16–20; TEMP 37.3–39.2; O2SAT 71–94
[2021-10-26] MEDS: Levothyroxine 25 MCG TABLET PO (04:28)
[2021-10-26] MEDS: 0.9% Normal Saline 1,000 ML 75 ML IV ×2 (06:33→19:43)
[2021-10-26 06:36] LABS: Absolute Lymphocyte Count 0.46 X10^3/uL (0.83-4.51); Absolute Neutrophil Count 0.7 X10^3/uL (2.0-7.7); Basophil# 0.01 X10^3/uL; Basophil% 0.8 % (0-1); Eosinophil# 0.02 X10^3/uL; Eosinophils% 1.6 % (0-5); Hematocrit 27.8 % (37-47); Hemoglobin 9.2 g/dL (12.0-15.0); Lymphocyte # 0.46 X10^3/ul (0.83-4.51); Lymphocyte % 37.4 % (19-41); Mean Corp Hgb Conc 33.1 g/dL (32-36); Mean Corpuscular Hgb 36.5 pg (27.0-32.0); Mean Corpuscular Volume 110.3 fL (81-99); Mean Platelet Vol. 11.8 fl (6.2-12.0); Monocyte# 0.03 X10^3/uL; Monocyte% 2.4 % (0-10); NRBC Flagged by Analyzer 0 % (0-5); Neutrophil # 0.65 X10^3/uL (2.7-7.7); Neutrophil % 52.9 % (47-70); POSITIVE COUNT YES; POSITIVE DIFFERENTIAL YES; POSITIVE MORPHOLOGY YES; RBC Distribution Width CV 13.2 % (11.6-14.6); RBC Distribution Width SD 52.8 fl (35.1-43.9); Red Blood Count 2.52 M/mm3 (4.2-5.4)
[2021-10-26 06:46] LABS: Differential Indicated SCAN CRITERIA MET; Platelet Count 27 K/mm3 (150-450); White Blood Count 1.2 K/mm3 (4.4-11.0)
[2021-10-26 07:01] LABS: Anion Gap 8 (5-15); BUN 19 mg/dL (7-18); BUN/Creat Ratio 15.2 RATIO (10-20); Calcium,Total 8.9 mg/dL (8.5-10.1); Chloride 100 mmol/L (98-107); Creatinine, Serum 1.25 mg/dL (0.55-1.02); EST Glomerular Filtration Rate 44 mL/min (>60); Est Glom Filt Rate - Afr Amer 53 mL/min (>60); Estimated Creatinine Clearance 37.54 ml/min; Glucose 130 mg/dL (74-106); Potassium 3.9 mmol/L (3.5-5.1); Sodium Level 135 mmol/L (136-145)
[2021-10-26 07:13] LABS: Differential Comment SCANNED; Platelet Estimate MKD DEC (ADEQ)
--- NOTE | 2021-10-26 08:56 | PCM.PN.HOSP ---
Objective Data Objective Data Vital Signs: Vital Signs Temp Pulse Resp BP Pulse Ox 99.2 F H 86 18 141/74 H 94 10/26/21 04:27 10/26/21 04:27 10/26/21 04:27 10/26/21 04:27 10/26/21 04:27 Oxygen Flow Rate (L/min) 2 Oxygen Delivery Method Room Air Weight: 63.1 kg Body Mass Index (BMI) 28.0 Intake & Output: Intake and Output for Last 24 Hours 10/24/21 10/25/21 10/26/21 23:59 23:59 23:59 Intake Total 1230 / 1290 1026.25 / 1026.25 Balance 1230 / 1290 1026.25 / 1026.25 Lab / Micro Data Result Diagrams: 10/26/21 06:14 10/26/21 06:14 Labs: Laboratory Results - last 24 hr 10/25/21 11:31: WBC 1.0 L*, RBC 2.59 L, Hgb 9.6 L, Hct 27.9 L, MCV 107.7 H, MCH 37.1 H, MCHC 34.4, RDW Std Deviation 51.5 H, RDW Coeff of Alex 13.1, Plt Count 32 L*, MPV 13.1 H, Immature Gran % (Auto) 0.000, Neut % (Auto) 39.8 L, Lymph % (Auto) 53.1 H, [place] % (Auto) 5.1, Eos % (Auto) 1.0, Baso % (Auto) 1.0, Absolute Neuts (auto) 0.4 L, Absolute Lymphs (auto) 0.52 L, Nucleated RBC % 0, Differential Comment COMMENT, Diff Path Review October10/25/21 11:31: PT 13.0, INR 1.0, APTT 24.4 10/25/21 11:31: Sodium 132 L, Potassium 3.4 L, Chloride 94 L, Carbon Dioxide 30.0, Anion Gap 8, BUN 21 H, Creatinine 1.76 H, Estim Creat Clear Calc 27.41, Est GFR (MDRD) Af Amer 36 L, Est GFR (MDRD) Non-Af 30 L, BUN/Creatinine Ratio 11.9, Glucose 139 H, Calcium 10.0, Total Bilirubin 0.40, AST 21, ALT 26, Alkaline Phosphatase 64, Total Protein 6.0 L, Albumin 2.6 L, Globulin 3.4, Albumin/Globulin Ratio 0.8 L 10/25/21 11:31: Lactic Acid 2.1 H* 10/25/21 12:54: Urine Color Yellow, Urine Clarity Sl. Cloudy, Urine pH 7.0, Ur Specific [place] 1.010, Urine Protein Negative, Urine Glucose (UA) Normal, Urine Ketones Negative, Urine Occult Blood Negative, Urine Nitrite Negative, Urine Bilirubin Negative, Urine Urobilinogen Normal, Ur Leukocyte Esterase Negative, Urine RBC 0 SEEN, Urine WBC 0 SEEN, Ur Squamous Epith Cells 0 SEEN, Urine Bacteria 0 SEEN, Urine Mucus 0 SEEN 10/25/21 16:03: Lactic Acid 1.0 10/25/21 22:00: POC Glucose 88 10/26/21 06:14: WBC 1.2 L*, RBC 2.52 L, Hgb 9.2 L, Hct 27.8 L, MCV 110.3 H, MCH 36.5 H, MCHC 33.1, RDW Std Deviation 52.8 H, RDW Coeff of Alex 13.2, Plt Count 27 L*, MPV 11.8, Immature Gran % (Auto) 4.900 H, Neut % (Auto) 52.9, Lymph % (Auto) 37.4, [place] % (Auto) 2.4, Eos % (Auto) 1.6, Baso % (Auto) 0.8, Absolute Neuts (auto) 0.7 L, Absolute Lymphs (auto) 0.46 L, Nucleated RBC % 0, Differential Comment SCANNED, Diff Path Review October, Platelet Estimate MKD 10/26/21 06:14: Sodium 135 L, Potassium 3.9, Chloride 100, Carbon Dioxide 27.0, Anion Gap 8, BUN 19 H, Creatinine 1.25 H, Estim Creat Clear Calc 37.54, Est GFR (MDRD) Af Amer 53 L, Est GFR (MDRD) Non-Af 44 L, BUN/Creatinine Ratio 15.2, Glucose 130 H, Calcium 8.9 Micro: Microbiology 10/25/21 13:07 Nasal Secretion SARS-CoV-2 & FLU Antigen (Rapid) - Final Radiography Diagnostic Testing: Radiology Impression Chest X-Ray 10/25/21 11:46 IMPRESSION: No acute abnormality is seen. Electronically Signed: Kenneth Dominguez MD at 12:24 EDT , Chest CTA 10/25/21 14:45 IMPRESSION: Nonspecific focal areas of groundglass appearance in both lungs worse in the upper lobes. Early pneumonitis should be ruled out. Sclerotic metastasis involving the T1 and T2 vertebrae. Electronically Signed: Kenneth Dominguez MD at 15:06 EDT ,
[2021-10-26] MEDS: Acetaminophen 325 MG Tablet 650 MG PO ×2 (09:25→23:36)
[2021-10-26] MEDS: Ranolazine 500 MG Tablet PO (09:27)
[2021-10-26] MEDS: Metoprolol(XL)Succ 100 MG Tablet PO (09:27)
[2021-10-26] MEDS: Anastrozole 1 MG TABLET PO (09:43)
[2021-10-26] MEDS: TBO-FILGRASTIM 300 MCG/0.5 ML ML SC (09:44)
--- NOTE | 2021-10-26 12:05 | CASEMGMT ---
RN CM Face to Face with patient for initial transition planning/care coordination assessment. RN CM introduced self and role at [facility]. Patient sitting in chair, alert and oriented. Patient willing to participate in assessment and is able to answer all questions appropriately. Care providers, pharmacy, and demographics verified. Patient wishes to discharge home, denies need for home health at this time. Patient states she has no further needs or concerns at this time. CM to follow for discharge planning needs that may arise. PCP: [facility] Specialists: Abdoulaye, oncologist; , sanitary engineering teacher; Vane, beamster Preferred Pharmacy: [facility] retail Insurance: [employer], [employer]OMN Prescription Benefit: yes Living Will/HPOA: yes, son Matthew Cisneros LNOK: sons Living Arrangements: Patient lives in a 2 story home with bed and bath on first floor. 1 step to enter the home. Patient states she is independent at home. Transportation: self, [facility] DME/HHC: Patient states she has cane, raised toilet, grab bars. No previous HHC or SNF Disposition Plan: Patient to discharge home with family support and follow-up plans in place. Whitney KAUR, RN, CM
--- NOTE | 2021-10-26 13:01 | PCM.PN.HOSP ---
Documented by User: Faisal MEZA 10/26/21 13:21 Subjective Subjective Patient is a 76-year-old female comfortably resting in bed, alert and oriented x3. Patient reports being fatigued due to poor sleep, but denies development of any new symptoms overnight. Does not appear in acute distress. Objective Data Objective Data Vital Signs: Vital Signs Temp Pulse Resp BP Pulse Ox 102 F H 82 16 142/72 H 94 10/26/21 10:25 10/26/21 10:25 10/26/21 10:25 10/26/21 10:10/26/21 10:25 Oxygen Flow Rate (L/min) 2 Oxygen Delivery Method Nasal Cannula Weight: 139 lb 1.787 oz Body Mass Index (BMI) 28.0 Intake & Output: Intake and Output for Last 24 Hours 10/24/21 10/25/21 10/26/21 23:59 23:59 23:59 Intake Total 1230 / 1290 1026.25 / 1026.25 Balance 1230 / 1290 1026.25 / 1026.25 Lab / Micro Data Result Diagrams: 10/26/21 06:14 10/26/21 06:14 Labs: Laboratory Results - last 24 hr 10/25/21 12:54: Urine Color Yellow, Urine Clarity Sl. Cloudy, Urine pH 7.0, Ur Specific [place] 1.010, Urine Protein Negative, Urine Glucose (UA) Normal, Urine Ketones Negative, Urine Occult Blood Negative, Urine Nitrite Negative, Urine Bilirubin Negative, Urine Urobilinogen Normal, Ur Leukocyte Esterase Negative, Urine RBC 0 SEEN, Urine WBC 0 SEEN, Ur Squamous Epith Cells 0 SEEN, Urine Bacteria 0 SEEN, Urine Mucus 0 SEEN 10/25/21 16:03: Lactic Acid 1.0 10/25/21 22:00: POC Glucose 88 10/26/21 06:14: WBC 1.2 L*, RBC 2.52 L, Hgb 9.2 L, Hct 27.8 L, MCV 110.3 H, MCH 36.5 H, MCHC 33.1, RDW Std Deviation 52.8 H, RDW Coeff of Alex 13.2, Plt Count 27 L*, MPV 11.8, Immature Gran % (Auto) 4.900 H, Neut % (Auto) 52.9, Lymph % (Auto) 37.4, [place] % (Auto) 2.4, Eos % (Auto) 1.6, Baso % (Auto) 0.8, Absolute Neuts (auto) 0.7 L, Absolute Lymphs (auto) 0.46 L, Nucleated RBC % 0, Differential Comment SCANNED, Diff Path Review May foll, Platelet Estimate MKD 10/26/21 06:14: Sodium 135 L, Potassium 3.9, Chloride 100, Carbon Dioxide 27.0, Anion Gap 8, BUN 19 H, Creatinine 1.25 H, Estim Creat Clear Calc 37.54, Est GFR (MDRD) Af Amer 53 L, Est GFR (MDRD) Non-Af 44 L, BUN/Creatinine Ratio 15.2, Glucose 130 H, Calcium 8.9 Micro: Microbiology 10/25/21 13:07 Nasal Secretion SARS-CoV-2 & FLU Antigen (Rapid) - Final Radiography Diagnostic Testing: Radiology Impression Chest CTA 10/25/21 14:45 IMPRESSION: Nonspecific focal areas of groundglass appearance in both lungs worse in the upper lobes. Early pneumonitis should be ruled out. Sclerotic metastasis involving the T1 and T2 vertebrae. Electronically Signed: Kenneth Dominguez MD at 15:06 EDT , Physical Exam Const alert, oriented x3 and no apparent distress HEENT head/scalp atraumatic and moist oral mucous membranes Head and Scalp: normocephalic Eyes PERRL, EOMs intact bilaterally and conjunctivae normal Neck no lymphadenopathy, supple and no JVD Resp normal respiratory effort, no retractions and no use of accessory muscles Cardio regular rate, regular rhythm and no JVD GI normal to inspection, nondistended, normoactive bowel sounds and soft to palpation Extremity normal to inspection, full ROM and no clubbing, cyanosis or edema Skin no rashes or lesions noted, no wounds and no jaundice Neuro CN's II-XII intact bilaterally Psych affect normal Assessment & Plan Assessment/Plan (1) Neutropenic fever: (2) Hyponatremia: (3) Thrombocytopenia: (4) Lactic acidosis: PLAN: Day 1 Discharge planning: Patient to discharge home when medically ready. 1) neutropenic fever White blood cell count is currently 1.2 and platelets are 27,000. Patient does follow with Dr. Stanford for Stage IV breast cancer status post left breast mastectomy and is on Ibrance. Infectious work-up on admission was unremarkable for any acute process. We will continue administration of Granix and meropenem, awaiting blood culture results. 2) lactic acidosis Lactate elevated at 2.1, likely secondary to #1, although patient does not appear septic at this time. Plan; as above. 3) CKD stage IIIb Creatinine currently 1.25, at baseline. We will continue to monitor. 4) hypothyroidism Continue Synthroid. 5) stage IV breast cancer S/P left breast mastectomy, currently on Ibrance. Follows with Dr. Stanford. Continue anastrozole. 6) hyperlipidemia Continue statin. 7) DM2 Continue Accu-Cheks and sliding scale insulin. DVT prophylaxis - SCD's, chemoprophylaxis not indicated due to thrombocytopenia. Patient seen by Faisal Hawley PA-C, under the supervision of Dr. Wynne. Has been on patient care: 10 minutes. Documented by User: Dr. Fidelina Wynne MD 10/26/21 13:55 Objective Data Lab / Micro Data Result Diagrams: 10/26/21 06:14 10/26/21 06:14 Charges/Coding Addendum Addendum: This patient was seen in conjunction with SUSANA Park. I have independently interviewed and examined the patient and reviewed pertinent historical, laboratory, and other data. Please refer to SUSANA Park's note for his patient's presentation, findings, and recommendations. I have reviewed and his note and concur with his documentation Patient was seen and examined. She complains of feeling very tired. She is still febrile. Temperature is 102F. Denies any diarrhea or dysuria or frequency. WBC count increased to 1.2. Absolute neutrophil count improved to 4900. Physical Exam: Gen: Comfortable, not pale, not jaundiced CVS:HS I +II, regular, no murmurs RESP: Diminished at lung bases GI: BS present and normal, soft, nontender, no palpable organs EXT:No edema ASSESSMENT: 1. Acute neutropenic fever 2. Pancytopenia 3. Stage IV breast CA 4. Hyperlipidemia 5. Hypothyroidism 6. Lactic acidosis 7. Type II DM Plan: Continue on gentle IV fluids, lispro, meropenem DC Granix Repeat blood work in am Time spent coordinating all aspects of patient's care, discussing with nursin minutes Visit Charges Inpatient E&M: 71190 Subs Hosp L2
[2021-10-26] MEDS: Atorvastatin Calcium 10 MG Tablet 5 MG PO (23:23)
[2021-10-27] VITALS (17 sets, daily range): BP systolic 106–162; BP diastolic 47–95; PULSE 71–132; RESP 15–29; TEMP 36.1–39.3; O2SAT 78–99
[2021-10-27 00:05] LABS: Bedside Glucose 227 mg/dL (74-106)
[2021-10-27] MEDS: Acetaminophen 325 MG Tablet 650 MG PO ×3 (05:49→21:48)
[2021-10-27] MEDS: Levothyroxine 25 MCG TABLET PO (05:49)
[2021-10-27 06:23] LABS: Hematocrit 27.3 % (37-47); Hemoglobin 9.4 g/dL (12.0-15.0); Mean Corp Hgb Conc 34.4 g/dL (32-36); Mean Corpuscular Volume 107.5 fL (81-99); POSITIVE COUNT YES; POSITIVE DIFFERENTIAL YES; POSITIVE MORPHOLOGY YES; RBC Distribution Width CV 13.2 % (11.6-14.6); RBC Distribution Width SD 51.7 fl (35.1-43.9); Red Blood Count 2.54 M/mm3 (4.2-5.4); White Blood Count 1.5 K/mm3 (4.4-11.0)
[2021-10-27 06:39] LABS: Differential Indicated MANUAL DIFF
[2021-10-27 06:40] LABS: Platelet Count 27 K/mm3 (150-450)
[2021-10-27 06:41] LABS: Anion Gap 8 (5-15); BUN 19 mg/dL (7-18); BUN/Creat Ratio 16.1 RATIO (10-20); Calcium,Total 8.5 mg/dL (8.5-10.1); Chloride 106 mmol/L (98-107); Creatinine, Serum 1.18 mg/dL (0.55-1.02); EST Glomerular Filtration Rate 47 mL/min (>60); Est Glom Filt Rate - Afr Amer 57 mL/min (>60); Estimated Creatinine Clearance 39.77 ml/min; Glucose 169 mg/dL (74-106); Potassium 3.5 mmol/L (3.5-5.1); Sodium Level 139 mmol/L (136-145)
[2021-10-27 06:55] LABS: Bedside Glucose 170 mg/dL (74-106)
[2021-10-27 07:42] LABS: Anisocytosis 1+; Hypochromasia 1+; Lymphocyte 45 % (19-41); Neutrophil-Band 15 % (0-5); Neutrophil-Segmented 40 % (47-70); Platelet Estimate MKD DEC (ADEQ); Total Cells Counted 20 (MANUAL DIFF)
[2021-10-27 07:43] LABS: Absolute Lymphocyte Count 0.67 X10^3/uL (0.83-4.51); Absolute Neutrophil Count 0.8 X10^3/uL (2.0-7.7); Lymphocyte # 0.67 X10^3/ul (0.83-4.51); Neutrophil # 0.82 X10^3/uL (2.7-7.7)
[2021-10-27] MEDS: Anastrozole 1 MG TABLET PO (10:09)
[2021-10-27] MEDS: Ranolazine 500 MG Tablet PO (10:10)
[2021-10-27] MEDS: Metoprolol(XL)Succ 100 MG Tablet PO (10:10)
--- NOTE | 2021-10-27 10:14 | PCM.DC ---
Discharge Instructions Diet Discharge Diet: No restrictions Activity Discharge Activity: Return to Normal Activity Weight Bearing Status: Weight bearing as tolerated Dressing / Incision Call your doctor if you observe: Fever of 101 or Higher, Numbness or Tingling, Shortness of breath, Dizziness, Chest pain, Increased palpitations (irregular heartbeat) and Calf discomfort Follow Up Care Please Follow Up With: Primary care provider When: Within the next two weeks. Test Results: Test results from this visit will be discussed in further detail at your follow-up appointment, if applicable. Discharge Plan Admission Admit Date/Time: 10/25/21 16:32 Primary Reason for Your Visit: Abnormal labs Attending Provider: Fidelina Wynne Primary Care Provider: Celina Dangelo Consulting Providers: Devante Nix Discharge Orders/Prescriptions Prescriptions: New levofloxacin 750 mg tablet 750 mg PO DAILY Qty: 5 RF: 0 Continued cholecalciferol (vitamin D3) 1,000 unit capsule 25 mcg (1,000 unit) capsule 2,000 unit PO BID RF: 0 Prolia 60 mg/mL syringe 60 mg SC QMONTH RF: 0 metoprolol succinate 100 mg tablet extended release 24 hr 100 mg PO DAILY RF: 0 simvastatin 10 mg tablet 10 mg PO QHS RF: 0 insulin aspart U-100 [Novolog U-100 Insulin aspart] 100 unit/mL solution 60 unit subcut DAILY RF: 0 levothyroxine 25 mcg capsule 25 mcg 25 mcg PO QDAY RF: 0 anastrozole [Arimidex] 1 mg tablet 1 mg PO DAILY RF: 0 ranolazine 500 mg tablet extended release 12 hr 500 mg PO DAILY Qty: 90 RF: 3 Held Ibrance 75 mg Capsule 75 mg PO DAILY RF: 0 Hold Instructions: Hold until you can follow up with Dr. Stanford. Referrals / Follow Up: Celina Dangelo DO [Primary Care Provider] - Within 2 Weeks Cheko tSanford DO [STAFF PHYSICIAN] - Within 1 Week (Follow up with Dr. Stanford at your next scheduled appointment. ) Disposition Disposition (needs filled in before D/C Order can be placed): Home, Self Care
--- NOTE | 2021-10-27 10:49 | NURSING ---
This nurse wanted to check Sp02 on RA. Her fingers were cold so This nurse applied two warm blankets on her hands for 15min. Rechecked o2 at RA at rest and o2 was 84-85%. Oxygen reapplied at 2L NC and spo2 came up to 94%. Dr. Wynne was in the room with this nurse when spo2 was checked and is aware. Dr. Wynne called PA. Harshal, and informed him. Order for lasix given to this nurse and for chest xray to be done.
--- NOTE | 2021-10-27 10:51 | RAD_ITS ---
STUDY: X-RAY CHEST REASON FOR EXAM: Female, 76 years old. Hypoxia TECHNIQUE: PA and lateral views of the chest. COMPARISON: 10/25/2021 FINDINGS: Status post left mastectomy and axillary lymph node dissection. The lungs are clear and expanded. Tiny right pleural effusion. There is moderate cardiac enlargement. Normal mediastinum and ruddy. Normal visualized pulmonary arteries. Normal visualized aortic arch and descending thoracic aorta. Normal visualized thoracic spine. Normal visualized ribs, clavicles, and shoulders. There is no demonstrated abnormality of the visualized soft tissue structures of the upper abdomen. RAD/Chest PA and Lateral IMPRESSION: Tiny right pleural effusion. Electronically Signed: Alphonso Ventura MD at 14:00 EDT ,
[2021-10-27] MEDS: Furosemide 40 MG/4 ML Vial IV (11:39)
--- NOTE | 2021-10-27 11:47 | PN.HOSP_ITS ---
Documented by User: Faisal MEZA 10/27/21 12:04 Subjective Subjective Patient is a 76-year-old female comfortably resting in a chair, alert and orient x3. Patient denies development of any new symptoms overnight. Does not appear in acute distress. Objective Data Objective Data Vital Signs: Vital Signs Temp Pulse Resp BP Pulse Ox 97 F L 76 18 162/67 H 94 10/27/21 09:29 10/27/21 10:10 10/27/21 09:29 10/27/21 09:29 10/27/21 10:52 Oxygen Flow Rate (L/min) 2 Oxygen Delivery Method Nasal Cannula Weight: 139 lb 1.787 oz Body Mass Index (BMI) 28.0 Intake & Output: Intake and Output for Last 24 Hours 10/25/21 10/26/21 10/27/21 23:59 23:59 23:59 Intake Total 1230 / 1290 2373.75 / 2373.75 1120 / 1120 Balance 1230 / 1290 2373.75 / 2373.75 1120 / 1120 Lab / Micro Data Result Diagrams: 10/27/21 06:12 10/27/21 06:12 Labs: Laboratory Results - last 24 hr 10/26/21 23:31: POC Glucose 227 H 10/27/21 05:47: POC Glucose 170 H 10/27/21 06:12: WBC 1.5 L, RBC 2.54 L, Hgb 9.4 L, Hct 27.3 L, MCV 107.5 H, MCH 37.0 H, MCHC 34.4, RDW Std Deviation 51.7 H, RDW Coeff of Alex 13.2, Plt Count 27 L*, Neut % (Auto) Not Reportable, Absolute Neuts (auto) 0.8 L, Absolute Lymphs (auto) 0.67 L, Total Counted 20, Neutrophils % (Manual) 40 L, Band Neutrophils % 15 H, Lymphocytes % (Manual) 45 H, Diff Path Review October, Platelet Estimate MKD DEC, Hypochromasia 1+, Anisocytosis 1+ 10/27/21 06:12: Sodium 139, Potassium 3.5, Chloride 106, Carbon Dioxide 25.0, Anion Gap 8, BUN 19 H, Creatinine 1.18 H, Estim Creat Clear Calc 39.77, Est GFR (MDRD) Af Amer 57 L, Est GFR (MDRD) Non-Af 47 L, BUN/Creatinine Ratio 16.1, Glucose 169 H, Calcium 8.5 Micro: Microbiology 10/25/21 12:54 Urine Catheter - Catheter Urine Culture - Final Culture exhibits no growth. 10/25/21 13:07 Nasal Secretion SARS-CoV-2 & FLU Antigen (Rapid) - Final Physical Exam Const alert, oriented x3 and no apparent distress HEENT head/scalp atraumatic and moist oral mucous membranes Head and Scalp: normocephalic Eyes PERRL, EOMs intact bilaterally and conjunctivae normal Neck no lymphadenopathy, supple and no JVD Resp normal respiratory effort, no retractions and no use of accessory muscles Cardio regular rate, regular rhythm and no JVD GI normal to inspection, nondistended, normoactive bowel sounds and soft to palpation Extremity normal to inspection, full ROM and no clubbing, cyanosis or edema Skin no rashes or lesions noted, no wounds and skin turgor normal Neuro CN's II-XII intact bilaterally Psych affect normal Assessment & Plan Assessment/Plan (1) Lactic acidosis: (2) Thrombocytopenia: (3) Neutropenic fever: PLAN: Day 2 Discharge planning: Patient to discharge home when medically ready. 1) neutropenic fever White blood cell count is currently 1.5 and platelets are 27,000. Absolute neutrophil count is 0.8. All labs continue to improve. Patient does follow with Dr. Stanford for Stage IV breast cancer status post left breast mastectomy and is on Ibrance. Infectious work-up on admission was unremarkable for any acute process. We will continue administration of Granix and meropenem, awaiting blood culture results. 2) lactic acidosis Lactate elevated at 2.1, likely secondary to #1, although patient does not appear septic at this time. Plan; as above. 3) CKD stage IIIb Creatinine currently 1.18, at baseline. We will continue to monitor. 4) hypothyroidism Continue Synthroid. 5) stage IV breast cancer S/P left breast mastectomy, currently on Ibrance. Follows with Dr. Stanford. Continue anastrozole. 6) hyperlipidemia Continue statin. 7) DM2 Continue Accu-Cheks and sliding scale insulin. DVT prophylaxis - SCD's, chemoprophylaxis not indicated due to thrombocytopenia. Patient seen by Faisal Hawley PA-C, under the supervision of Dr. Wynne. Has bee n on patient care: 9 minutes. Documented by User: Dr. Fidelina Wynne MD 10/27/21 14:30 Objective Data Lab / Micro Data Result Diagrams: 10/27/21 06:12 10/27/21 06:12 Charges/Coding Addendum Addendum: This patient was seen in conjunction with SUSANA Park. I have independently interviewed and examined the patient and reviewed pertinent historical, laboratory, and other data. Please refer to SUSANA Park's note for his patient's presentation, findings, and recommendations. I have reviewed and his note and concur with his documentation Patient was seen and examined. She was found to be hypoxic overnight, saturating in the 70s. Improved on nasal cannula oxygen. Patient is not sure that she has history of sleep apnea. At the time of being seen, she was sitting up quietly with no respiratory distress symptoms. Oxygen levels were checked and she was saturating in the low 80s. She was put on 3 L of oxygen. IV fluids were discontinued. Lasix 40 mg IV x1 given. Chest x-ray ordered Later on, called emergently to see patient was having rigors and shivering, had worsening hypoxia, fever and tachycardia. Patient had an episode of diarrhea and had 2 episodes of vomiting. T-max was 102.1F. ABGs showed respiratory alkalosis. Physical Exam: Gen: Appears uncomfortable, on Ventimask, in mild respiratory distress with use of accessory muscles of respiration, pale CVS:HS I +II, regular, no murmurs RESP: Diminished at lung bases GI: BS present and normal, soft, nontender, no palpable organs EXT:No edema ASSESSMENT: 1. Acute hypoxic respiratory failure 2. Acute neutropenic fever 3. Pancytopenia 4. Stage IV breast CA 5. Hyperlipidemia 6. Hypothyroidism 7. Lactic acidosis 8. Type II DM Plan: Continue on oxygen, wean off for SPO2 more than 94% Repeat blood cultures Continue IV meropenem CTA of the chest to rule out acute PE Symptomatic care Repeat blood work in am Time spent reviewing patient data, coordinating all aspects of patient's care, discussing with nursin minutes Visit Charges Inpatient E&M: 42486 Subs Hosp L2
--- NOTE | 2021-10-27 13:19 | NURSING ---
Pt called for assistance. Pt was shivering continously and color was very pale, lips looked slightly dusky. This nurse did
--- NOTE | 2021-10-27 13:34 | CT_ITS ---
STUDY: CTA CHEST REASON FOR EXAM: Female, 76 years old. hypoxia RADIATION DOSAGE (If Supplied By Facility): CTDIvol = ( 5.55 ) mGy, DLP = ( 171.67 ) mGycm TECHNIQUE: The examination was performed with the intravenous administration of IV 75mL Isovue-370. Post-processing of the angiographic images was performed, with multiplanar reformation and 3D reconstruction. Individualized dose optimization techniques were used for this CT. COMPARISON: None. FINDINGS: No filling defect in the pulmonary arteries to suggest pulmonary embolism. Atherosclerosis of the thoracic aorta and coronary arteries. No adenopathy. No pleural or pericardial effusion. No pneumothorax. Diffuse groundglass densities in the bilateral upper and to a lesser degree lower lobes. Findings are suggestive of multifocal pneumonia such as Covid 19 or developing ARDS. Linear scars versus plate like atelectasis in the left lower lobe. Sections through the upper abdomen show intact visualized abdominal viscera. Status post T1 and T2 vertebroplasty. Diffuse osteopenia. CT/CTA Chest W/WO Contrast IMPRESSION: No evidence of pulmonary embolism. Multiple groundglass densities in the bilateral upper and lower lungs, due to multifocal pneumonia such as Covid 19 or developing ARDS Electronically Signed: Abdiaziz Mcclure MD at 19:21 EDT ,
[2021-10-27] MEDS: Ondansetron 4 MG/2 ML Vial IV (13:37)
[2021-10-27 13:40] LABS: Base Excess 0 mmol/L (-2 to +2); Bicarbonate 23.1 mmol/L (22-26); Blood Gas Specimen Type ART; O2 Delivery Device NRB; PO2 53 mmHG (75-100); SITE R Radial; SO2 91 % (95-99); Total Carbon Dioxide 24 mmol/L; pCO2 27.8 mmHg (35-45); pH 7.53 (7.35-7.45)
--- NOTE | 2021-10-27 13:46 | PN.HOSP_ITS ---
Documented by User: Faisal MEZA 10/27/21 13:51 Hospitalist Note Attending provider and myself were alerted at approximately 1315 that patient oxygen saturations were dropping, patient was tachypneic and tachycardic and was with rigors and chills. Patient also reported some diarrhea. Attending provider and myself responded at bedside, and presentation was consistent with what nurse reported. Unclear etiology as to patient's presentation at this time, chest x- ray appears unchanged from admission. ABG was unremarkable. We will obtain repeat blood cultures, C. difficile and enteric stool panel, obtain COVID PCR and repeat chest CT-A.
--- NOTE | 2021-10-27 13:49 | NURSING ---
At approx 1319 today pt had her Call light on. Pt stated she vomitted on the floor on the way to the bathroom and had diarrhea., Pts color did not look good. Pt was pale and lips were looking a little dusky and pt had uncontrollable shivering. Vitals obtained, Sp02 was hard to get as pts fingers were cold. Warm blankets applied on pt and her fingers. spo2 showed 80% on 2L NC. Lidya RN notified that Dr. Wynne needed paged to come see pt. This nurse put telly monitor on pt. Vitals obtained, see findings. Non-rebreather applied to pt and spo2 came up to 94%. Color starting to look better. Dr. Wynne and Faisal MEZA here to see pt and assessing pt. While Dr. Wynne still in with pt, pt vomited in non-re breather without any warning. CPS came to perform ABG's. Pt is also now on enteric precautions due to the diarrhea that was not seen but reported by pt. Razia, [employer] cleaned up the vomit in the bathroom per chemo spill protocol. Pt has a purewick that was placed since still feels urgency to void d/t lasix this morning. This nurse educated pt on importance of not getting up at this time. Blood Sugar was also checked and it was 154.
[2021-10-27 14:25] LABS: Bedside Glucose 154 mg/dL (74-106)
[2021-10-27] MEDS: 0.9% Normal Saline 1,000 ML 15 ML IV (15:05)
[2021-10-27] MEDS: Atorvastatin Calcium 10 MG Tablet 5 MG PO (21:49)
[2021-10-27 22:10] LABS: Bedside Glucose 247 mg/dL (74-106)
[2021-10-28] VITALS (17 sets, daily range): BP systolic 108–150; BP diastolic 53–88; PULSE 71–124; RESP 16–21; TEMP 36.8–39.5; O2SAT 77–100
[2021-10-28] MEDS: Insulin Lispro 100 UNIT/ML INSULN.PEN SC ×2 (00:09→05:11)
[2021-10-28 01:46] LABS: Bedside Glucose 278 mg/dL (74-106)
[2021-10-28] MEDS: Levothyroxine 25 MCG TABLET PO (05:14)
[2021-10-28 05:51] LABS: Bedside Glucose 158 mg/dL (74-106)
[2021-10-28 06:27] LABS: Anion Gap 9 (5-15); BUN 20 mg/dL (7-18); BUN/Creat Ratio 17.7 RATIO (10-20); Calcium,Total 8.6 mg/dL (8.5-10.1); Chloride 101 mmol/L (98-107); Creatinine, Serum 1.13 mg/dL (0.55-1.02); EST Glomerular Filtration Rate 50 mL/min (>60); Est Glom Filt Rate - Afr Amer 60 mL/min (>60); Estimated Creatinine Clearance 41.53 ml/min; Glucose 159 mg/dL (74-106); Potassium 3.9 mmol/L (3.5-5.1); Sodium Level 136 mmol/L (136-145)
--- NOTE | 2021-10-28 07:56 | CON.PCM.CC_ITS ---
Assessment & Plan Assessment/Plan (1) Neutropenic fever: PLAN: RECOMMENDATIONS: 1. Check BNP. If elevated, consider gentle diuresis. 2. Broaden antimicrobials, given persistent fevers. 3. Check respiratory viral panel. 4. Continue Granix. 5. Check MRSA screen. 6. Wean supplemental oxygen to maintain saturations at or above 90%. 7. Encourage incentive spirometer use and mobilize patient as tolerated. IMPRESSIONS: 1. Neutropenic fever with associated hypoxia The patient has evidence radiographically of uncomfortable and groundglass opacities, concerning for an underlying pulmonary infectious process. However, I cannot discount the possibility of superimposed pulmonary edema either. Accordingly, will check BNP. Lower clinical suspicion for Ibrance related pneumonitis. Given that the patient is still spiking high-grade fevers, will add vancomycin to meropenem. We will check MRSA screen. If the patient's BNP is elevated, may need to consider gentle diuresis. Respiratory viral panel will also be obtained. Continue Granix. Wean supplemental oxygen as tolerated to maintain saturations at or above 90%. Encourage incentive spirometer use and mobilize patient as tolerated. 2. Acute on chronic kidney disease Most likely prerenal in etiology. The patient did initially receive supplem ental IV fluid hydration. Fluids can be discontinued from my perspective. If BNP is significantly elevated, may need to consider gentle diuresis. 3. Pancytopenia Related to use of Ibrance coupled with underlying infection. Continue to monitor counts daily and continue Granix. No indication for transfusion of blood products at the current time. 4. History of breast CA/hypothyroidism/hyperlipidemia Complicates care, management, recovery and prognosis. Continue home medications as indicated. This note was generated with [employer] dictation software. It may contain incorrect words, spelling, and punctuation that were not noted in checking the note before signing. HPI Consult Data Date of Consult: 10/28/21 HPI Narrative Reason for Consultation: Respiratory failure HPI Narrative: The patient is a 76-year-old female, with a history as outlined below, who presented to the emergency department on October 25 with generalized weakness, fatigue, chills and fevers. The patient's medical history is significant for metastatic breast CA status post left mastectomy. She is currently being maintained on Ibrance. The patient has been on the aforementioned medication now for approximately 2 years. The patient was initially contacted by her oncologist office after she had blood work done which revealed significant thrombocytopenia. On presentation to the emergency department, the patient was noted to be afebrile and hemodynamically stable. Initial laboratory evaluation revealed evidence of pancytopenia. Chemistry profile was notable for a potassium of 3.4 and creatinine of 1.76. Lactate was elevated at 2.1. COVID PCR was negative. CTA chest with no evidence for pulmonary embolism but did reveal noncompliant groundglass opacities in both lungs. The patient was subsequently placed on antimicrobials and admitted to the hospital for further management. The patient is currently documented to be overall net +4.3 L for the hospitalization. She remains on supplemental oxygen at 4 L/min and has been unable to produce any sputum. Surface echocardiogram from January 2020 demonstrated normal LV size and function with an ejection fraction of 55%. Pulmonary artery systolic pressure was estimated to be 28 mmHg. The patient does continue to spike fevers and was noted to have a temperature of 103?F this morning. [facility] Medical History Acquired absence of left breast and nipple Acute renal failure Arthritis Back problem Bone metastases Breast asymmetry Breast cancer, left Breast ptosis Cataracts, bilateral Diabetes mellitus Disproportion of reconstructed breast Environmental allergies Essential (primary) hypertension Estrogen receptor positive status (ER+) Facet arthropathy, lumbar Hearing problem Hyperlipidemia Hyperthyroidism Invasive lobular carcinoma of left breast in female Inversion of left nipple Kidney disease Metastatic breast cancer Osteoarthritis Osteoporosis Segmental and somatic dysfunction of lumbar region Segmental and somatic dysfunction of pelvic region Type 1 diabetes mellitus Vision problems Home Medications anastrozole 1 mg tablet 1 mg PO DAILY 10/25/19 [History Last Taken 10/25/21] denosumab 60 mg/mL subcutaneous syringe 60 mg SC QMONTH ml 01/05/20 [History Last Taken Unknown] cholecalciferol (vitamin D3) 25 mcg (1,000 unit) capsule 2,000 unit PO BID cap 07/05/20 [History Last Taken 10/25/21] ranolazine 500 mg tablet,extended release,12 hr 500 mg PO DAILY #90 tab 08/05/21 [Rx Last Taken 10/25/21] Ibrance 75 mg PO DAILY 10/25/21 [History Last Taken 10/20/21] insulin aspart U-100 [Novolog U-100 Insulin aspart] 60 unit SUBCUT DAILY 10/25/21 [History Last Taken 10/25/21] levothyroxine 25 mcg capsule 25 mcg PO QDAY 10/25/21 [History Last Taken 10/23/21] metoprolol succinate 100 mg PO DAILY 10/25/21 [History Last Taken 10/24/21] simvastatin 10 mg PO QHS 10/25/21 [History Last Taken 10/23/21] levofloxacin 750 mg PO DAILY #5 tab 10/27/21 [Rx Last Taken Unknown] Allergy/AdvReac Type Severity Reaction Status Date / Time codeine AdvReac Vomiting Verified 10/25/21 10:54 hydrocodone AdvReac Vomiting Verified 10/25/21 10:54 meperidine [From Demerol] AdvReac Vomiting Verified 10/25/21 10:54 Family History Father Myocardial infarction <55 Heart disease Hypertension High cholesterol Mother Osteoporosis Skin cancer Surgical History History of left breast biopsy (06/2019) History of left heart catheterization (10/30/06) History of modified radical mastectomy of left breast (08/05/19) History of tubal ligation Status post right breast biopsy Social History Smoking Status: Never smoker alcohol intake: current alcohol intake frequency: holidays/special occasions only substance use type: does not use caffeine: Yes Type: coffee Number of servings: 2 additional social history: DOES USE ASPIRIN DOES NOT USE IBUPROFEN ROS Constitutional Constitutional: Reports chills, fatigue, fever(s) and malaise Eyes Eyes: Denies blurry vision or change in vision ENT HEENT: Denies dizziness, dysphagia, epistaxis or headache(s) Cardiovascular Cardiovascular: Reports dyspnea; Denies chest pain or dizziness Respiratory/Chest Respiratory/Chest: Reports cough and dyspnea Gastrointestinal Gastrointestinal: Denies abdominal pain, diarrhea, nausea or vomiting Genitourinary Genitourinary: Denies difficulty urinating Musculoskeletal Musculoskeletal: Denies arthralgias, back pain or joint pain Integumentary Integumentary: Denies lesions, rash or skin ulcer Neurologic Neurologic: Denies abnormal gait or abnormal speech Psychiatric Psychiatric: Denies anxiety or depression Endocrine Endocrinology: Reports fatigue Hematologic/Lymphatic Hematologic/Lymphatic: Denies easy bleeding or easy bruising Physical Exam Const alert, oriented x3 and no apparent distress General Appearance: cooperative HEENT normocephalic, head/scalp atraumatic and moist oral mucous membranes Eyes PERRL and conjunctivae normal Neck supple General: trachea midline Chest inspection of chest normal Resp no use of accessory muscles Effort and Inspection: able to speak in complete sentences Auscultation: rales bilateral lower Cardio regular rate and regular rhythm GI normal to inspection, nondistended, normoactive bowel sounds Extremity no clubbing, cyanosis or edema Skin no rashes or lesions noted Neuro CN's II-XII intact bilaterally, moves all extremities and no focal motor d eficits Psych cooperative and affect normal Lab / Micro Data Result Diagrams: 10/28/21 07:55 10/28/21 05:36 Labs: Laboratory Results - last 24 hr 10/27/21 13:05: POC Glucose 154 H 10/27/21 15:05: COVID-19 ([facility]) Not Detected 10/27/21 21:58: POC Glucose 247 H 10/28/21 00:09: POC Glucose 278 H 10/28/21 05:08: POC Glucose 158 H 10/28/21 05:36: Sodium 136, Potassium 3.9, Chloride 101, Carbon Dioxide 26.0, Anion Gap 9, BUN 20 H, Creatinine 1.13 H, Estim Creat Clear Calc 41.53, Est GFR (MDRD) Af Amer 60, Est GFR (MDRD) Non-Af 50 L, BUN/Creatinine Ratio 17.7, Glucose 159 H, Calcium 8.6 Micro: Microbiology 10/25/21 12:05 Blood Culture (Wb) - Right Wrist Blood Culture - Preliminary No growth in 48 hours. 10/25/21 11:31 Blood Culture (Wb) - Anticubital Right Blood Culture - Preliminary No growth in 48 hours. 10/25/21 12:54 Urine Catheter - Catheter Urine Culture - Final Culture exhibits no growth. ABG Data ABG results: ABG 10/27/21 13:35 Specimen Type ART Sample Site R Radial pH 7.53 H Bicarbonate Actual 23.1 Total CO2 24 Base Excess 0 O2 Saturation 91 L ABG pCO2 27.8 L ABG pO2 53 L O2 Delivery Device NRB Liter Flow 15.0 Radiology Impression Chest X-Ray 10/27/21 10:51 IMPRESSION: Tiny right pleural effusion. Electronically Signed: Alphonso Ventura MD at 14:00 EDT , Chest CTA 10/27/21 13:34 IMPRESSION: No evidence of pulmonary embolism. Multiple groundglass densities in the bilateral upper and lower lungs, due to multifocal pneumonia such as Covid 19 or developing ARDS Electronically Signed: Abdiaziz Mcclure MD at 19:21 EDT , Charges/Coding Visit Charges Inpatient E&M: 89772 Init Hosp L3
[2021-10-28 08:03] LABS: Absolute Lymphocyte Count 0.41 X10^3/uL (0.83-4.51); Absolute Neutrophil Count 1.3 X10^3/uL (2.0-7.7); Basophil# 0.01 X10^3/uL; Basophil% 0.5 % (0-1); Eosinophil# 0.02 X10^3/uL; Eosinophils% 1.1 % (0-5); Hematocrit 24.9 % (37-47); Hemoglobin 8.4 g/dL (12.0-15.0); Lymphocyte # 0.41 X10^3/ul (0.83-4.51); Lymphocyte % 22.3 % (19-41); Mean Corp Hgb Conc 33.7 g/dL (32-36); Mean Corpuscular Volume 109.7 fL (81-99); Monocyte# 0.08 X10^3/uL; Monocyte% 4.3 % (0-10); NRBC Flagged by Analyzer 0 % (0-5); Neutrophil # 1.31 X10^3/uL (2.7-7.7); Neutrophil % 71.3 % (47-70); POSITIVE COUNT YES; POSITIVE DIFFERENTIAL YES; POSITIVE MORPHOLOGY YES; RBC Distribution Width CV 13.1 % (11.6-14.6); RBC Distribution Width SD 51.3 fl (35.1-43.9); Red Blood Count 2.27 M/mm3 (4.2-5.4); White Blood Count 1.8 K/mm3 (4.4-11.0)
[2021-10-28 08:07] LABS: Differential Indicated SCAN CRITERIA MET; Platelet Count 30 K/mm3 (150-450)
[2021-10-28 08:37] LABS: Platelet Estimate MKD DEC (ADEQ); Reactive Lymphocyte RARE
[2021-10-28] MEDS: Metoprolol(XL)Succ 100 MG Tablet PO (08:42)
[2021-10-28] MEDS: Acetaminophen 325 MG Tablet 650 MG PO ×2 (08:42→18:48)
[2021-10-28] MEDS: Ranolazine 500 MG Tablet PO (08:42)
[2021-10-28] MEDS: Anastrozole 1 MG TABLET PO (08:42)
--- NOTE | 2021-10-28 11:22 | PCM.PN.HOSP ---
Documented by User: Faisal MEZA 10/28/21 11:39 Subjective Subjective Patient is a 76-year-old female comfortably resting in bed, alert and orient x3. Patient denies any shortness of breath, does report x2 watery bowel movements yesterday, but denies any today. Does not appear in acute distress. Objective Data Objective Data Vital Signs: Vital Signs Temp Pulse Resp BP Pulse Ox 103.1 F H 97 16 150/60 H 93 10/28/21 08:38 10/28/21 08:42 10/28/21 08:38 10/28/21 08:38 10/28/21 08:43 Oxygen Flow Rate (L/min) 5 Oxygen Delivery Method Nasal Cannula Weight: 139 lb 1.787 oz Body Mass Index (BMI) 28.0 Intake & Output: Intake and Output for Last 24 Hours 10/26/21 10/27/21 10/28/21 23:59 23:59 23:59 Intake Total 2373.75 / 2373.75 1820 / 1820 Output Total 600 / 850 450 / 450 Balance 2373.75 / 2373.75 1220 / 970 -450 / -450 Lab / Micro Data Result Diagrams: 10/28/21 07:55 10/28/21 05:36 Labs: Laboratory Results - last 24 hr 10/27/21 13:05: POC Glucose 154 H 10/27/21 15:05: COVID-19 ([facility]) Not Detected 10/27/21 21:58: POC Glucose 247 H 10/28/21 00:09: POC Glucose 278 H 10/28/21 05:08: POC Glucose 158 H 10/28/21 05:36: Sodium 136, Potassium 3.9, Chloride 101, Carbon Dioxide 26.0, Anion Gap 9, BUN 20 H, Creatinine 1.13 H, Estim Creat Clear Calc 41.53, Est GFR (MDRD) Af Amer 60, Est GFR (MDRD) Non-Af 50 L, BUN/Creatinine Ratio 17.7, Glucose 159 H, Calcium 8.6 10/28/21 07:55: WBC 1.8 L, RBC 2.27 L, Hgb 8.4 L, Hct 24.9 L, MCV 109.7 H, MCH 37.0 H, MCHC 33.7, RDW Std Deviation 51.3 H, RDW Coeff of Alex 13.1, Plt Count 30 L*, Immature Gran % (Auto) 0.500, Neut % (Auto) 71.3 H, Lymph % (Auto) 22.3, [place] % (Auto) 4.3, Eos % (Auto) 1.1, Baso % (Auto) 0.5, Absolute Neuts (auto) 1.3 L, Absolute Lymphs (auto) 0.41 L, Nucleated RBC % 0, Differential Comment COMMENT, Diff Path Review May foll, Reactive Lymphocytes RARE, Platelet Estimate MKD DEC Micro: Microbiology 10/25/21 12:05 Blood Culture (Wb) - Right Wrist Blood Culture - Preliminary No growth in 48 hours. 10/25/21 11:31 Blood Culture (Wb) - Anticubital Right Blood Culture - Preliminary No growth in 48 hours. 10/25/21 12:54 Urine Catheter - Catheter Urine Culture - Final Culture exhibits no growth. 10/25/21 13:07 Nasal Secretion SARS-CoV-2 & FLU Antigen (Rapid) - Final ABG Data ABG results: ABG 10/27/21 13:35 Specimen Type ART Sample Site R Radial pH 7.53 H Bicarbonate Actual 23.1 Total CO2 24 Base Excess 0 O2 Saturation 91 L ABG pCO2 27.8 L ABG pO2 53 L O2 Delivery Device NRB Liter Flow 15.0 Radiography Diagnostic Testing: Radiology Impression Chest X-Ray 10/27/21 10:51 IMPRESSION: Tiny right pleural effusion. Electronically Signed: Alphonso Ventura MD at 14:00 EDT , Chest CTA 10/27/21 13:34 IMPRESSION: No evidence of pulmonary embolism. Multiple groundglass densities in the bilateral upper and lower lungs, due to multifocal pneumonia such as Covid 19 or developing ARDS Electronically Signed: Abdiaziz Mcclure MD at 19:21 EDT , Physical Exam Const alert, oriented x3 and no apparent distress HEENT head/scalp atraumatic and moist oral mucous membranes Head and Scalp: normocephalic Eyes PERRL, EOMs intact bilaterally and conjunctivae normal Neck no lymphadenopathy, supple and no JVD Resp Resp Narrative: Currently requiring 5 L oxygen to maintain saturations at 95%. Cardio regular rate, regular rhythm and no JVD GI normal to inspection, nondistended, normoactive bowel sounds and soft to palpation Extremity normal to inspection, full ROM and no clubbing, cyanosis or edema Skin no rashes or lesions noted, no wounds and skin turgor normal Neuro CN's II-XII intact bilaterally Psych affect normal Assessment & Plan Assessment/Plan (1) Neutropenic fever: (2) Thrombocytopenia: (3) Lactic acidosis: PLAN: Day 3 Discharge planning: Patient to discharge home when medically ready. 1) neutropenic fever White blood cell count is currently 1.5 and platelets are 30,000. Absolute neutrophil count is 1.3. All labs continue to improve. Patient does follow with Dr. Stanford for Stage IV breast cancer status post left breast mastectomy and is on Ibrance. Patient course and remained stable, until the afternoon of 10/27 where patient developed hypoxia, tachycardia, tachypnea and x1 diarrhea. Most symptoms have resolved, although patient is still on requiring 5 L of oxygen to maintain saturations. Unclear at this time why patient developed symptoms. Plan; viral respiratory panel pending, ID and pulmonary consult ordered, continue meropenem as well as initiate vancomycin. 2) lactic acidosis Lactate elevated at 2.1, likely secondary to #1, although patient does not appear septic at this time. Plan; as above. 3) CKD stage IIIb Creatinine currently 1.18, at baseline. We will continue to monitor. 4) hypothyroidism Continue Synthroid. 5) stage IV breast cancer S/P left breast mastectomy, currently on Ibrance. Follows with Dr. Stanford. Continue anastrozole. 6) hyperlipidemia Continue statin. 7) DM2 Continue Accu-Cheks and sliding scale insulin. DVT prophylaxis - SCD's, chemoprophylaxis not indicated due to thrombocytopenia. Patient seen by Faisal Hawley PA-C, under the supervision of Dr. Alvarez. Time spent on patient care: 9 minutes. Documented by User: Dr. Ross Alvarez MD 10/28/21 14:25 Subjective Subjective Follow-up for neutropenic fever. Patient T-max 103.1 Fahrenheit in the morning. Objective Data Lab / Micro Data Result Diagrams: 10/28/21 07:55 10/28/21 05:36 Physical Exam Narrative Patient has history of breast cancer at left mastectomy in July 2019. She did not had neoadjuvant or adjuvant chemotherapy. She is on Ibrance. She also had 2 loose bowel movements yesterday morning but did not had since then. No abdominal pain. No chest pain pressure or shortness of breath. General: Alert, Oriented x3, Cooperative HEENT: Atraumatic, PERRLA, EOMI, Normocephalic Oral: No Gingival or Mucosal Lesions/ Ulcerations Neck: Supple, No JVD, Negative Carotid Bruits Lungs: Air entry diminished in bilateral lung bases. No crepitation/rhonchi Cardiovascular: Intermittent sinus tachycardia, Normal S1, Normal S2, No murmurs Abdomen: Bowel Sounds Present, Soft, Non Tender, Non-Distended : No renal angle tenderness. No suprapubic tenderness. Extremities: No edema, Capillary Refill Less than 3 Seconds Skin: No rashes, No breakdown Musculoskeletal: No Tenderness to Palpation of Joints or Extremities Neurological: Cranial nerves II-XII grossly intact, DTR 2+/4 and Symmetrical, Neuro grossly intact Psych/Mental Status: Normal Affect, Appropriate Assessment & Plan Assessment/Plan (1) Neutropenic fever: PLAN: This patient was seen in conjunction with SUSANA Valdes. I have independently interviewed and examined the patient and reviewed pertinent history, examination findings, laboratory and plan of management. I have reviewed the note and agree with the documented findings with the few additional points. In brief, patient is admitted on 11/11 for fever for last 3 days prior to admission. 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 The patient still having fever. On meropenem. Vancomycin started today. ID consult. Patient had a scheduled oncology appointment Dr. Stanford but was found to be leukopenic and severe thrombocytopenic. Patient has lactic acidosis. Cultures are negative so far. Respiratory panel negative. ID consult reviewed and recommended oncology evaluation. EBV and CMV ordered. Patient had 2 loose bowel movements but did not had since then. Stool studies ordered but not collected yet. Other comorbidities include CKD stage IIIb, hypothyroidism, dyslipidemia and diabetes mellitus type 2. I have discussed my assessment with SUSANA Valdes and orders have been reviewed. Charges/Coding Visit Charges Inpatient E&M: 82101 Subs Hosp L2
--- NOTE | 2021-10-28 11:41 | PCM.RX.CS ---
Consult Pharmacy has been consulted to manage selected antiobiotic: Vancomycin Type of Consult: New start Suspected Infection: Pneumonia Prior Doses of Antibiotics Received/Current Regimen: Received loading dose of 1500mg iv x 1. Labs: Sodium 136 mmol/L (136-145) 10/28/21 05:36 Potassium 3.9 mmol/L (3.5-5.1) 10/28/21 05:36 Chloride 101 mmol/L (98-107) 10/28/21 05:36 Carbon Dioxide 26.0 mmol/L (21.0-32.0) 10/28/21 05:36 Anion Gap 9 (5-15) 10/28/21 05:36 BUN 20 mg/dL (7-18) H 10/28/21 05:36 Creatinine 1.13 mg/dL (0.55-1.02) H 10/28/21 05:36 Est GFR (MDRD) Af Amer 60 mL/min (>60) 10/28/21 05:36 Est GFR (MDRD) Non-Af 50 mL/min (>60) L 10/28/21 05:36 BUN/Creatinine Ratio 17.7 RATIO (10-20) 10/28/21 05:36 Glucose 159 mg/dL (74-106) H 10/28/21 05:36 Microbiology: Microbiology 10/25/21 12:05 Blood Culture (Wb) - Right Wrist Blood Culture - Preliminary No growth in 48 hours. 10/25/21 11:31 Blood Culture (Wb) - Anticubital Right Blood Culture - Preliminary No growth in 48 hours. 10/25/21 12:54 Urine Catheter - Catheter Urine Culture - Final Culture exhibits no growth. 10/25/21 13:07 Nasal Secretion SARS-CoV-2 & FLU Antigen (Rapid) - Final Weight used for dosin.1 kg Estimated Creatinine Clearance: ~34ml/min Goal Trough: 15-20 mcg/mL Pharmacy Plan for Drug Dosing: Will begin 750mg iv q24h per protocol. Trough level ordered for before 3rd total dose on 10.30.21. Pharmacy Service will continue to monitor and adjust dosing as required. Follow-Up Labs: Trough Vancomycin - 10.30.21 @1030 before 1100 dose
[2021-10-28 12:13] LABS: BNP,B-Type NATRIURETIC PEPTIDE 224.9 pg/mL (0-100)
[2021-10-28 13:29] LABS: Pathologist Review Reviewed
--- NOTE | 2021-10-28 14:10 | PCM.CONS.GEN ---
Assessment & Plan Assessment/Plan (1) Metastatic breast cancer: (2) Neutropenic fever: PLAN: Neutropenic fever with new pancytopenia of unclear source. ANC improved, still fever. Cxs neg so far, viral panel neg. Cont vanc/meropenem. Will check for EBV and CMV, would recommend oncology eval. Will follow, thank you HPI Consult Data Date of Consult: 10/28/21 HPI Narrative HPI Narrative: BASSAM JAIN, is a 76 F with metastatic breast cancer, on Ibrance for about 2 years, presented with fever, chills, weakness since 10/23. No sick contacts, lives alone, covid vaccine x3, no recent travel. Came to ED 10/25, admitted with neutropenic fever. Admitted on meropenem. ANC improving, feeling a little better, still fever. Vanc added. No n/v/d, no oral lesions. Minimal cough. Full ROS performed and neg except as noted above. No change in taste/smell. [facility], [facility] Medical History Acquired absence of left breast and nipple Acute renal failure Arthritis Back problem Bone metastases Breast asymmetry Breast cancer, left Breast ptosis Cataracts, bilateral Diabetes mellitus Disproportion of reconstructed breast Environmental allergies Essential (primary) hypertension Estrogen receptor positive status (ER+) Facet arthropathy, lumbar Hearing problem Hyperlipidemia Hyperthyroidism Invasive lobular carcinoma of left breast in female Inversion of left nipple Kidney disease Metastatic breast cancer Osteoarthritis Osteoporosis Segmental and somatic dysfunction of lumbar region Segmental and somatic dysfunction of pelvic region Type 1 diabetes mellitus Vision problems Home Medications anastrozole 1 mg tablet 1 mg PO DAILY 10/25/19 [History Last Taken 10/25/21] denosumab 60 mg/mL subcutaneous syringe 60 mg SC QMONTH ml 01/05/20 [History Last Taken Unknown] cholecalciferol (vitamin D3) 25 mcg (1,000 unit) capsule 2,000 unit PO BID cap 07/05/20 [History Last Taken 10/25/21] ranolazine 500 mg tablet,extended release,12 hr 500 mg PO DAILY #90 tab 08/05/21 [Rx Last Taken 10/25/21] Ibrance 75 mg PO DAILY 10/25/21 [History Last Taken 10/20/21] insulin aspart U-100 [Novolog U-100 Insulin aspart] 60 unit SUBCUT DAILY 10/25/21 [History Last Taken 10/25/21] levothyroxine 25 mcg capsule 25 mcg PO QDAY 10/25/21 [History Last Taken 10/23/21] metoprolol succinate 100 mg PO DAILY 10/25/21 [History Last Taken 10/24/21] simvastatin 10 mg PO QHS 10/25/21 [History Last Taken 10/23/21] levofloxacin 750 mg PO DAILY #5 tab 10/27/21 [Rx Last Taken Unknown] Allergy/AdvReac Type Severity Reaction Status Date / Time codeine AdvReac Vomiting Verified 10/25/21 10:54 hydrocodone AdvReac Vomiting Verified 10/25/21 10:54 meperidine [From Demerol] AdvReac Vomiting Verified 10/25/21 10:54 Family History Father Myocardial infarction <55 Heart disease Hypertension High cholesterol Mother Osteoporosis Skin cancer Surgical History History of left breast biopsy (06/2019) History of left heart catheterization (10/30/06) History of modified radical mastectomy of left breast (08/05/19) History of tubal ligation Status post right breast biopsy Social History Smoking Status: Never smoker alcohol intake: current alcohol intake frequency: holidays/special occasions only substance use type: does not use caffeine: Yes Type: coffee Number of servings: 2 additional social history: DOES USE ASPIRIN DOES NOT USE IBUPROFEN Physical Exam Const alert, oriented x3 and no apparent distress General Appearance: cooperative Exam Limitations: no limitations HEENT normocephalic and head/scalp atraumatic Eyes PERRL and EOMs intact bilaterally Neck supple and No nodes Resp normal air movement and clear to auscultation bilaterally Cardio regular rate and regular rhythm GI soft to palpation, non-tender and non-distended Extremity no clubbing, cyanosis or edema Skin no rashes or lesions noted Neuro CN's II-XII intact bilaterally Lab / Micro Data Result Diagrams: 10/28/21 07:55 10/28/21 05:36 Labs: Laboratory Results - last 24 hr 10/27/21 13:05: POC Glucose 154 H 10/27/21 15:05: COVID-19 ([facility]) Not Detected 10/27/21 21:58: POC Glucose 247 H 10/28/21 00:09: POC Glucose 278 H 10/28/21 05:08: POC Glucose 158 H 10/28/21 05:36: Sodium 136, Potassium 3.9, Chloride 101, Carbon Dioxide 26.0, Anion Gap 9, BUN 20 H, Creatinine 1.13 H, Estim Creat Clear Calc 41.53, Est GFR (MDRD) Af Amer 60, Est GFR (MDRD) Non-Af 50 L, BUN/Creatinine Ratio 17.7, Glucose 159 H, Calcium 8.6 10/28/21 07:55: WBC 1.8 L, RBC 2.27 L, Hgb 8.4 L, Hct 24.9 L, MCV 109.7 H, MCH 37.0 H, MCHC 33.7, RDW Std Deviation 51.3 H, RDW Coeff of Alex 13.1, Plt Count 30 L*, Immature Gran % (Auto) 0.500, Neut % (Auto) 71.3 H, Lymph % (Auto) 22.3, [place] % (Auto) 4.3, Eos % (Auto) 1.1, Baso % (Auto) 0.5, Absolute Neuts (auto) 1.3 L, Absolute Lymphs (auto) 0.41 L, Nucleated RBC % 0, Differential Comment COMMENT, Diff Path Review Reviewed, Reactive Lymphocytes RARE, Platelet Estimate MKD 10/28/21 07:55: B-Natriuretic Peptide 224.9 H Micro: Microbiology 10/28/21 08:45 Mucosa - Nose Respiratory Panel (PCR) - Final 10/25/21 12:05 Blood Culture (Wb) - Right Wrist Blood Culture - Preliminary No growth in 48 hours. 10/25/21 11:31 Blood Culture (Wb) - Anticubital Right Blood Culture - Preliminary No growth in 48 hours. 10/25/21 12:54 Urine Catheter - Catheter Urine Culture - Final Culture exhibits no growth. Radiology Impression Chest CTA 10/27/21 13:34 IMPRESSION: No evidence of pulmonary embolism. Multiple groundglass densities in the bilateral upper and lower lungs, due to multifocal pneumonia such as Covid 19 or developing ARDS Electronically Signed: Abdiaziz Mcclure MD at 19:21 EDT Reading Location ID and State: [facility] / [place] Tel , Service support ,
[2021-10-28 15:04] LABS: Pathologist Review Reviewed
[2021-10-28 15:05] LABS: Pathologist Review Reviewed
[2021-10-28 15:05] LABS: Pathologist Review Reviewed
[2021-10-28 15:46] LABS: Bedside Glucose 302 mg/dL (74-106)
[2021-10-28] MEDS: TBO-FILGRASTIM 480 MCG/0.8 ML ML SC (15:48)
[2021-10-28 17:43] LABS: M R Staph aureus DNA By PCR Negative (Negative); Probe Check PASS; Specimen Processing Control PASS
--- NOTE | 2021-10-28 18:29 | CON.PCM_ITS ---
Consult Date of Consult: 10/28/21 History of present illness: The patient is a 76-year-old female, who presented to the emergency department on October 25 with generalized weakness, fatigue, chills and fevers. The patient's medical history is significant for metastatic breast CA status post left mastectomy. She is currently being maintained on anastrozo le and Ibrance. The patient has been on this treatment for approximately 2 years. She initially presented with thrombocytopenia. Her most recent PET scan in August, showed no evidence of active disease. On presentation to the emergency department with a fever. Initial laboratory evaluation revealed evidence of pancytopenia. She stopped her Ibrance a week ago her chemistry profile was notable for a potassium of 3.4 and creatinine of 1.76. Lactate was elevated at 2.1. COVID PCR was negative. CTA chest with no evidence for pulmonary embolism but did reveal noncompliant groundglass op acities in both lungs. The patient was subsequently placed on meropenem and admitted to the hospital for further management. She was also started on Granix but this was discontinue on Thursday. She spiked another fever this morning and vancomycin was added with ID consult. Full ROS performed and neg except as noted above. No change in taste/smell. [facility] Medical History Acquired absence of left breast and nipple Acute renal failure Arthritis Back problem Bone metastases Breast asymmetry Breast cancer, left Breast ptosis Cataracts, bilateral Diabetes mellitus Disproportion of reconstructed breast Environmental allergies Essential (primary) hypertension Estrogen receptor positive status (ER+) Facet arthropathy, lumbar Hearing problem Hyperlipidemia Hyperthyroidism Invasive lobular carcinoma of left breast in female Inversion of left nipple Kidney disease Metastatic breast cancer Osteoarthritis Osteoporosis Segmental and somatic dysfunction of lumbar region Segmental and somatic dysfunction of pelvic region Type 1 diabetes mellitus Vision problems Home Medications anastrozole 1 mg tablet 1 mg PO DAILY 10/25/19 [History Last Taken 10/25/21] denosumab 60 mg/mL subcutaneous syringe 60 mg SC QMONTH ml 01/05/20 [History Last Taken Unknown] cholecalciferol (vitamin D3) 25 mcg (1,000 unit) capsule 2,000 unit PO BID cap 07/05/20 [History Last Taken 10/25/21] ranolazine 500 mg tablet,extended release,12 hr 500 mg PO DAILY #90 tab 08/05/21 [Rx Last Taken 10/25/21] Ibrance 75 mg PO DAILY 10/25/21 [History Last Taken 10/20/21] insulin aspart U-100 [Novolog U-100 Insulin aspart] 60 unit SUBCUT DAILY 10/25/21 [History Last Taken 10/25/21] levothyroxine 25 mcg capsule 25 mcg PO QDAY 10/25/21 [History Last Taken 10/23/21] metoprolol succinate 100 mg PO DAILY 10/25/21 [History Last Taken 10/24/21] simvastatin 10 mg PO QHS 10/25/21 [History Last Taken 10/23/21] levofloxacin 750 mg PO DAILY #5 tab 10/27/21 [Rx Last Taken Unknown] Allergy/AdvReac Type Severity Reaction Status Date / Time codeine AdvReac Vomiting Verified 10/25/21 10:54 hydrocodone AdvReac Vomiting Verified 10/25/21 10:54 meperidine [From Demerol] AdvReac Vomiting Verified 10/25/21 10:54 Family History Father Myocardial infarction <55 Heart disease Hypertension High cholesterol Mother Osteoporosis Skin cancer Surgical History History of left breast biopsy (06/2019) History of left heart catheterization (10/30/06) History of modified radical mastectomy of left breast (08/05/19) History of tubal ligation Status post right breast biopsy Social History Smoking Status: Never smoker alcohol intake: current alcohol intake frequency: holidays/special occasions only substance use type: does not use caffeine: Yes Type: coffee Number of servings: 2 additional social history: DOES USE ASPIRIN DOES NOT USE IBUPROFEN Physical Exam Const alert, oriented x3 and no apparent distress General Appearance: cooperative Exam Limitations: no limitations HEENT normocephalic and head/scalp atraumatic Eyes PERRL and EOMs intact bilaterally Neck supple and No nodes Resp normal air movement and clear to auscultation bilaterally Cardio regular rate and regular rhythm GI soft to palpation, non-tender and non-distended Extremity no clubbing, cyanosis or edema Skin no rashes or lesions noted Neuro CN's II-XII intact bilaterally Lab / Micro Data Result Diagrams: 10/28/21 07:55 document embedded image 10/28/21 05:36 document embedded image Labs:Laboratory Results - last 24 hr 10/27/21 13:05: POC Glucose 154 H 10/27/21 15:05: COVID-19 ([facility]) Not Detected 10/27/21 21:58: POC Glucose 247 H 10/28/21 00:09: POC Glucose 278 H 10/28/21 05:08: POC Glucose 158 H 10/28/21 05:36: Sodium 136, Potassium 3.9, Chloride 101, Carbon Dioxide 26.0, Anion Gap 9, BUN 20 H, Creatinine 1.13 H, Estim Creat Clear Calc 41.53, Est GFR (MDRD) Af Amer 60, Est GFR (MDRD) Non-Af 50 L, BUN/Creatinine Ratio 17.7, Glucose 159 H, Calcium 8.6 10/28/21 07:55: WBC 1.8 L, RBC 2.27 L, Hgb 8.4 L, Hct 24.9 L, MCV 109.7 H, MCH 37.0 H, MCHC 33.7, RDW Std Deviation 51.3 H, RDW Coeff of Alex 13.1, Plt Count 30 L*, Immature Gran % (Auto) 0.500, Neut % (Auto) 71.3 H, Lymph % (Auto) 22.3, [place] % (Auto) 4.3, Eos % (Auto) 1.1, Baso % (Auto) 0.5, Absolute Neuts (auto) 1.3 L, Absolute Lymphs (auto) 0.41 L, Nucleated RBC % 0, Differential Comment COMMENT, Diff Path Review Reviewed, Reactive Lymphocytes RARE, Platelet Estimate MKD 10/28/21 07:55: B-Natriuretic Peptide 224.9 H Micro:Microbiology 10/28/21 08:45 Mucosa - Nose Respiratory Panel (PCR) - Final 10/25/21 12:05 Blood Culture (Wb) - Right Wrist Blood Culture - Preliminary No growth in 48 hours. 10/25/21 11:31 Blood Culture (Wb) - Anticubital Right Blood Culture - Preliminary No growth in 48 hours. 10/25/21 12:54 Urine Catheter - Catheter Urine Culture - Final Culture exhibits no growth. Radiology Impression Chest CTA 10/27/21 13:34 IMPRESSION: No evidence of pulmonary embolism. Multiple groundglass densities in the bilateral upper and lower lungs, due to multifocal pneumonia such as Covid 19 or developing ARDS Assessment & Plan Assessment/Plan (1) Neutropenic fever: PLAN: -Continue antibiotic regiment per ID -Restart Granix 300 mcg sq daily for neutropenia -Hold Ibrance because of neutropenia -Continue with anastrozole 1mg once daily -Monitor CBC daily with differential (2) Metastatic breast cancer: PLAN: - Stable disease; no activity on PET scan - Follow-up with Dr. Stanford after discharge (3) Bone metastases: PLAN: - Stable, no pain. - Continue denosumab monthly
--- NOTE | 2021-10-28 19:01 | NURSING ---
Pt spo2 dropped to 84%. HR 124. placed on non rebreather and tylenol given for fever of 100.0. Doctor notified. spo2 now 100%
[2021-10-28] MEDS: Atorvastatin Calcium 10 MG Tablet 5 MG PO (22:08)
[2021-10-28 23:41] LABS: Bedside Glucose 133 mg/dL (74-106)
[2021-10-29] VITALS (26 sets, daily range): BP systolic 128–162; BP diastolic 58–69; PULSE 79–109; RESP 16–22; TEMP 36.8–39.3; O2SAT 83–109
--- NOTE | 2021-10-29 01:16 | NURSING ---
Pt noted to have 02 sats 85% while sleeping. Attempted to increase oxygen to 10L and then 12L via hi sulma cannula. 02 sats came up to 88%. Placed NRB on at 15L. Notified Respiratory who will review pt. 02 sats currently 100% on NRB.
[2021-10-29] MEDS: Acetaminophen 325 MG Tablet 650 MG PO (02:24)
[2021-10-29 06:15] LABS: Hematocrit 21.9 % (37-47); Hemoglobin 7.6 g/dL (12.0-15.0); Mean Corp Hgb Conc 34.7 g/dL (32-36); Mean Corpuscular Hgb 37.6 pg (27.0-32.0); Mean Corpuscular Volume 108.4 fL (81-99); Mean Platelet Vol. 14.3 fl (6.2-12.0); POSITIVE COUNT YES; POSITIVE DIFFERENTIAL YES; POSITIVE MORPHOLOGY YES; Platelet Count 33 K/mm3 (150-450); RBC Distribution Width CV 13.2 % (11.6-14.6); RBC Distribution Width SD 50.7 fl (35.1-43.9); Red Blood Count 2.02 M/mm3 (4.2-5.4); White Blood Count 1.8 K/mm3 (4.4-11.0)
[2021-10-29] MEDS: Levothyroxine 25 MCG TABLET PO (06:19)
--- NOTE | 2021-10-29 06:23 | PN.CC_ITS ---
Assessment & Plan Assessment/Plan (1) Neutropenic fever: PLAN: RECOMMENDATIONS: 1. Administer IV Lasix this morning. If stable from a hemodynamic perspective, will consider redosing this afternoon as well. 2. Wean FiO2 to maintain oxygen saturations at or above 90%. 3. Continue broad-spectrum antimicrobials per ID recommendations. 4. Electrolyte repletion as ordered. 5. Obtain echocardiogram. 6. Continue to monitor blood counts daily. Transfuse if hemoglobin drops below 7 g/dL. 7. Continue Granix. IMPRESSIONS: 1. Neutropenic fever with associated hypoxia The patient has evidence radiographically of uncomfortable and groundglass opacities, concerning for an underlying pulmonary infectious process. However, I cannot discount the possibility of superimposed pulmonary edema either. Given that BNP was mildly elevated and the patient has had worsening oxygen demand over the last 24 hours, will administer IV Lasix today. The patient will remain on broad-spectrum antimicrobials per ID recommendations. Lower clinical [place] spicion for Ibrance related pneumonitis. Continue Granix. Wean FiO2 to maintain oxygen saturations at or above 90%. Will obtain echocardiogram as well today. 2. Acute on chronic kidney disease Resolved. Most likely prerenal in etiology. The patient did initially receive supplemental IV fluid hydration. Continue to monitor urine output for now. 3. Pancytopenia Related to use of Ibrance coupled with underlying infection. Continue to mon itor counts daily and continue Granix. No indication for transfusion of blood products at the current time. Transfuse if hemoglobin drops below 7 g/dL. 4. History of breast CA/hypothyroidism/hyperlipidemia Complicates care, management, recovery and prognosis. Continue home medications as indicated. This note was generated with [employer] dictation software. It may contain incorrect words, spelling, and punctuation that were not noted in checking the note before signing. Subjective Subjective The patient was seen and examined at the bedside this morning. Events from the last 24 hours have been reviewed. Although the patient is currently afebrile, she did spike a fever overnight to 102.7 ?F. She remains hemodynamically stable and is maintaining appropriate oxygen saturations on Airvo heated high flow with an FiO2 requirement of 77% and flow rate of 50 L/min. The patient is currently documented to be overall net +5 L for the hospitalization. The patient remains on meropenem and vancomycin. Despite being on increased oxygen, the patient reported feeling better than yesterday. Hemoglobin is down to 7.6 g/dL this morning. Platelet count is stable at 33,000. Renal function is stable. Objective Data Objective Data The patient's most recent lab work, culture data and imaging studies have all been personally reviewed. Surface echocardiogram from January 2020 demonstrated normal LV size and function with an ejection fraction of 55%. Infectious work- up has been unrevealing to date. Vital Signs: Vital Signs Temp Pulse Resp BP Pulse Ox 99.1 F 84 16 131/61 H 98 10/29/21 06:18 10/29/21 06:18 10/29/21 06:18 10/29/21 06:18 10/29/21 06:18 Oxygen Flow Rate (L/min) 50 Oxygen Delivery Method Airvo Weight: 63.1 kg Body Mass Index (BMI) 28.0 Intake & Output: Intake and Output for Last 24 Hours 10/27/21 10/28/21 10/29/21 23:59 23:59 23:59 Intake Total 1820 / 1820 1310 / 1410 100 / 100 Output Total 600 / 850 1050 / 1250 200 / 200 Balance 1220 / 970 260 / 160 -100 / -100 Lab / Micro Data Attestation: I reviewed the patient's lab results. Result Diagrams: 10/29/21 05:30 10/29/21 05:30 Labs: Laboratory Results - last 24 hr 10/25/21 11:31: Diff Path Review Reviewed 10/26/21 06:14: Diff Path Review Reviewed 10/27/21 06:12: Diff Path Review Reviewed 10/28/21 05:36: Sodium 136, Potassium 3.9, Chloride 101, Carbon Dioxide 26.0, Anion Gap 9, BUN 20 H, Creatinine 1.13 H, Estim Creat Clear Calc 41.53, Est GFR (MDRD) Af Amer 60, Est GFR (MDRD) Non-Af 50 L, BUN/Creatinine Ratio 17.7, Glucose 159 H, Calcium 8.6 10/28/21 07:55: WBC 1.8 L, RBC 2.27 L, Hgb 8.4 L, Hct 24.9 L, MCV 109.7 H, MCH 37.0 H, MCHC 33.7, RDW Std Deviation 51.3 H, RDW Coeff of Alex 13.1, Plt Count 30 L*, Immature Gran % (Auto) 0.500, Neut % (Auto) 71.3 H, Lymph % (Auto) 22.3, [place] % (Auto) 4.3, Eos % (Auto) 1.1, Baso % (Auto) 0.5, Absolute Neuts (auto) 1.3 L, Absolute Lymphs (auto) 0.41 L, Nucleated RBC % 0, Differential Comment COMMENT, Diff Path Review Reviewed, Reactive Lymphocytes RARE, Platelet Estimate MKD 10/28/21 07:55: B-Natriuretic Peptide 224.9 H 10/28/21 14:40: MRSA (PCR) Negative 10/28/21 15:39: POC Glucose 302 H 10/28/21 22:00: POC Glucose 133 H Micro: Microbiology 10/28/21 08:45 Mucosa - Nose Respiratory Panel (PCR) - Final 10/25/21 12:05 Blood Culture (Wb) - Right Wrist Blood Culture - Preliminary No growth in 48 hours. 10/25/21 11:31 Blood Culture (Wb) - Anticubital Right Blood Culture - Pr eliminary No growth in 48 hours. 10/25/21 12:54 Urine Catheter - Catheter Urine Culture - Final Culture exhibits no growth. 10/25/21 13:07 Nasal Secretion SARS-CoV-2 & FLU Antigen (Rapid) - Final Physical Exam Const alert and oriented x3 Constitutional Narrative: Currently with Airvo heated high flow cannula in place. General Appearance: cooperative HEENT normocephalic, head/scalp atraumatic and moist oral mucous membranes Eyes PERRL and conjunctivae normal Neck supple General: trachea midline Chest inspection of chest normal Resp no use of accessory muscles Effort and Inspection: able to speak in complete sentences Auscultation: rales bilateral lower Cardio regular rate and regular rhythm GI normal to inspection, nondistended, normoactive bowel sounds Extremity no clubbing, cyanosis or edema Skin no rashes or lesions noted Neuro CN's II-XII intact bilaterally, moves all extremities and no focal motor deficits Psych cooperative and affect normal Charges/Coding Visit Charges Inpatient E&M: 72446 Subs Hosp L3
--- NOTE | 2021-10-29 06:24 | RAD_ITS ---
INDICATION: Respiratory Failure EXAMINATION/TECHNIQUE: X-RAY - XR Chest 1 View COMPARISON: 10/27/2021 FINDINGS: LINES/DEVICES: None. LUNGS: New bilateral hazy opacities and increased interstitial markings. Small right pleural effusion. MEDIASTINUM AND CARDIOVASCULAR STRUCTURES: Cardiac silhouette not enlarged. Central airways and mediastinal contour are unremarkable. BONES AND SOFT TISSUES: Surgical clips in the left axilla, similar compared to the prior. No acute osseous abnormality.. RAD/Chest 1 View (Portable) IMPRESSION: New hazy opacities and increased interstitial markings, concerning for mild pulmonary edema. Small right pleural effusion. Electronically Signed: Cipriano Beth MD at 7:04 EDT ,
--- NOTE | 2021-10-29 06:27 | ECHOCS_ITS ---
Reason For Study: DYSPNEA Procedure This was a 2D Doppler, Color Flow transthoracic echocardiogram. The study was technically difficult. Due to chest deformity. Contrast injection was performed. Exam performed portable in patient room. Left Ventricle Normal LV size. Left ventricular systolic function is normal. The estimated ejection fraction is 70 %. No evidence for diastolic dysfunction. No regional wall motion abnormalities noted. Right Ventricle Normal RV size. Normal systolic function. Atria Normal left atrium. Normal right atrium. No doppler evidence for ASD. Mitral Valve There is no mitral annular calcification. Normal mitral valve. Trivial mitral valve insufficiency. Tricuspid Valve Normal tricuspid valve. Trivial tricuspid valve insufficiency. Unable to estimate RV systolic pressure/pulmonary artery pressure due to technically difficult study. Aortic Valve The aortic valve is not well visualized. Trivial eccentric aortic valve insufficiency. Pulmonic Valve The pulmonic valve is not well visualized. Great Vessels Normal sized aortic root. Pericardium/Pleural No pericardial effusion. Medication Diluted definity 2ml given slow IV push to enhance endocardial definition. MMode/2D Measurements & Calculations LVIDd: 3.6 cm IVSd: 0.89 cm Ao root diam: 2.5 cm LVIDs: 1.8 cm LVPWd: 0.97 cm RVDd: 2.5 cm FS: 50.8 % LAV(MOD-sp4): 25.0 ml LVAd ap4: 24.0 cm2 LVAd ap2: 18.7 cm2 LVLd ap4: 7.4 cm LVLd ap2: 6.1 cm EDV(MOD-sp4): 62.1 ml EDV(MOD-sp2): 46.6 ml EDV(sp4-el): 65.7 ml EDV(sp2-el): 48.5 ml LVAs ap4: 14.0 cm2 LVAs ap2: 10.8 cm2 LVLs ap4: 6.4 cm LVLs ap2: 5.7 cm ESV(MOD-sp4): 26.9 ml ESV(MOD-sp2): 16.9 ml ESV(sp4-el): 26.1 ml ESV(sp2-el): 17.2 ml EF(MOD-sp4): 56.7 % EF(MOD-sp2): 63.8 % EF(sp4-el): 60.2 % SV(MOD-sp4): 35.2 ml SV(MOD-sp2): 29.7 ml SV(sp4-el): 39.5 ml LA A4 area: 12.1 cm2 LA dimension(2D): 2.5 cm RA A4 area: 11.7 cm2 Doppler Measurements & Calculations MV E max patrick: 96.0 cm/sec Lat Peak E' Patrick: 10.1 cm/sec Med Peak E' Patrick: 11.2 cm/sec MV A max patrick: 123.5 cm/sec E/E' lat: 9.5 E/E' med: 8.5 MV E/A: 0.78 Ao V2 max: 172.4 cm/sec AI max patrick: 505.1 cm/sec LV V1 max: 112.2 cm/sec Ao max P.9 mmHg AI max P.0 mmHg LV V1 max P.0 mmHg AI dec slope: 256.9 cm/sec2 AI P1/2t: 576.0 msec PA V2 max: 116.7 cm/sec ECHO/Echo Complete W/ Contrast Interpretation Summary The study was technically difficult. Contrast injection was performed. Left ventricular systolic function is normal. The estimated ejection fraction is 70 %. Trivial mitral valve insufficiency. Trivial tricuspid valve insufficiency. Trivial eccentric aortic valve insufficiency. Unable to estimate RV systolic pressure/pulmonary artery pressure due to techni shashi difficult study. No evidence for diastolic dysfunction. Ordering Physician: Michoacano Donato Referring Physician: Celina Dangelo Performed By: Noreen Langford RCS
[2021-10-29 06:36] LABS: Differential Indicated MANUAL DIFF
[2021-10-29 06:37] LABS: Anion Gap 6 (5-15); BUN 20 mg/dL (7-18); BUN/Creat Ratio 22.1 RATIO (10-20); Calcium,Total 8.6 mg/dL (8.5-10.1); Chloride 100 mmol/L (98-107); EST Glomerular Filtration Rate 64 mL/min (>60); Est Glom Filt Rate - Afr Amer 78 mL/min (>60); Estimated Creatinine Clearance 52.15 ml/min; Glucose 88 mg/dL (74-106); Potassium 3.3 mmol/L (3.5-5.1); Sodium Level 136 mmol/L (136-145)
[2021-10-29] MEDS: Furosemide 40 MG/4 ML Vial IV (06:43)
[2021-10-29] MEDS: 0.9% Saline Lock 10 ML Syringe IV (06:43)
[2021-10-29 06:55] LABS: Macrocytosis 2+; Platelet Estimate MKD DEC (ADEQ)
[2021-10-29 07:02] LABS: Absolute Lymphocyte Count 0.36 X10^3/uL (0.83-4.51); Absolute Neutrophil Count 1.3 X10^3/uL (2.0-7.7)
[2021-10-29 07:03] LABS: Troponin-I HS 79 pg/mL (3.0-54.0)
[2021-10-29 08:12] LABS: BNP,B-Type NATRIURETIC PEPTIDE 218.3 pg/mL (0-100)
[2021-10-29 08:19] LABS: Procalcitonin 1.21 ng/mL (0.00-0.09)
[2021-10-29 08:48] LABS: Magnesium 1.4 mg/dL (1.6-2.6); Phosphorus 2.4 mg/dL (2.5-4.9)
[2021-10-29] MEDS: Potassium Chloride Oral Tablet 20 MEQ 40 MEQ PO ×2 (08:59→11:27)
[2021-10-29] MEDS: Metoprolol(XL)Succ 100 MG Tablet PO (09:01)
[2021-10-29] MEDS: Anastrozole 1 MG TABLET PO (09:01)
[2021-10-29] MEDS: Ranolazine 500 MG Tablet PO (09:01)
[2021-10-29] MEDS: TBO-FILGRASTIM 480 MCG/0.8 ML ML SC (09:02)
[2021-10-29 09:31] LABS: Bedside Glucose 86 mg/dL (74-106)
--- NOTE | 2021-10-29 10:07 | PCM.PN.ID ---
Physical Exam Narrative Still with fever, some rare dry cough. No abd pain, no n/v/d. Const alert and no apparent distress General Appearance: cooperative Resp normal air movement and clear to auscultation bilaterally Cardio regular rate and regular rhythm GI soft to palpation, non-tender and non-distended Skin no rashes or lesions noted ID ID: Route of nutrition/ use of supplements: [] Nutritional Intake: [] IV Site: [] Justice Catheter: [] Assessment & Plan Assessment/Plan (1) Metastatic breast cancer: (2) Neutropenic fever: PLAN: Neutropenic fever with new pancytopenia of unclear source. ANC improved, still fever. Cxs neg so far, viral panel neg. Cont vanc/meropenem. Checking cmv/ebc. If no answers found and not improving over next day or two, would consider CT abd/pelvis with contrast and bone marrow bx. Will follow, d/w primary team
[2021-10-29] MEDS: Insulin Lispro 100 UNIT/ML INSULN.PEN SC ×2 (11:00→22:38)
[2021-10-29 12:15] LABS: Bedside Glucose 267 mg/dL (74-106)
--- NOTE | 2021-10-29 12:24 | PN.HOSP_ITS ---
Documented by User: Faisal MEZA 10/29/21 12:36 Subjective Subjective Patient is a 76-year-old female comfortably resting in bed, alert and orient x3. Patient is without any acute complaints, however oxygen requirements have increased overnight. Does not appear in acute distress. Objective Data Objective Data Vital Signs: Vital Signs Temp Pulse Resp BP Pulse Ox 99.1 F 99 18 131/61 H 97 10/29/21 06:18 10/29/21 09:01 10/29/21 08:52 10/29/21 06:18 10/29/21 08:52 Oxygen Flow Rate (L/min) 50 Oxygen Delivery Method Airvo Weight: 139 lb 1.787 oz Body Mass Index (BMI) 28.0 Intake & Output: Intake and Output for Last 24 Hours 10/27/21 10/28/21 10/29/21 23:59 23:59 23:59 Intake Total 1820 / 1820 1310 / 1410 160 / 160 Output Total 600 / 850 1050 / 1250 325 / 325 Balance 1220 / 970 260 / 160 -165 / -165 Lab / Micro Data Result Diagrams: 10/29/21 05:30 10/29/21 05:30 Labs: Laboratory Results - last 24 hr 10/25/21 11:31: Diff Path Review Reviewed 10/26/21 06:14: Diff Path Review Reviewed 10/27/21 06:12: Diff Path Review Reviewed 10/28/21 07:55: Diff Path Review Reviewed 10/28/21 14:40: MRSA (PCR) Negative 10/28/21 15:39: POC Glucose 302 H 10/28/21 22:00: POC Glucose 133 H 10/29/21 05:30: WBC 1.8 L, RBC 2.02 L, Hgb 7.6 L, Hct 21.9 L, MCV 108.4 H, MCH 37.6 H, MCHC 34.7, RDW Std Deviation 50.7 H, RDW Coeff of Alex 13.2, Plt Count 33 L*, MPV 14.3 H, Neut % (Auto) Not Reportable, Absolute Neuts (auto) 1.3 L, Absolute Lymphs (auto) 0.36 L, Diff Path Review May aguilar, Platelet Estimate MKD DEC, Macrocytosis 2+ 10/29/21 05:30: Sodium 136, Potassium 3.3 L, Chloride 100, Carbon Dioxide 30.0, Anion Gap 6, BUN 20 H, Creatinine 0.90, Estim Creat Clear Calc 52.15, Est GFR (MDRD) Af Amer 78, Est GFR (MDRD) Non-Af 64, BUN/Creatinine Ratio 22.1 H, Glucose 88, Calcium 8.6 10/29/21 05:30: B-Natriuretic Peptide 218.3 H 10/29/21 05:30: Procalcitonin 1.21 H 10/29/21 05:30: Troponin I High Sens 79 H 10/29/21 05:30: Phosphorus 2.4 L, Magnesium 1.4 L 10/29/21 06:21: POC Glucose 86 10/29/21 11:33: POC Glucose 267 H Micro: Microbiology 10/27/21 14:29 Blood Culture (Wb) - Right Wrist Blood Culture - Preliminary No growth in 48 hours. 10/28/21 08:45 Mucosa - Nose Respiratory Panel (PCR) - Final 10/25/21 12:05 Blood Culture (Wb) - Right Wrist Blood Culture - Preliminary No growth in 48 hours. 10/25/21 11:31 Blood Culture (Wb) - Anticubital Right Blood Culture - Preliminary No growth in 48 hours. 10/25/21 12:54 Urine Catheter - Catheter Urine Culture - Final Culture exhibits no growth. 10/25/21 13:07 Nasal Secretion SARS-CoV-2 & FLU Antigen (Rapid) - Final Radiography Diagnostic Testing: Radiology Impression Chest X-Ray 10/29/21 06:24 IMPRESSION: New hazy opacities and increased interstitial markings, concerning for mild pulmonary edema. Small right pleural effusion. Electronically Signed: Cipriano Beth MD at 7:04 EDT , Physical Exam Const alert, oriented x3 and no apparent distress HEENT head/scalp atraumatic and moist oral mucous membranes Head and Scalp: normocephalic Eyes PERRL, EOMs intact bilaterally and conjunctivae normal Neck no lymphadenopathy, supple and no JVD Resp clear to auscultation bilaterally Resp Narrative: Oxygen requirements have increased, patiently on air Vo. Effort and Inspection: labored Cardio regular rate, regular rhythm and no JVD GI normal to inspection, nondistended, normoactive bowel sounds and soft to palpation Extremity normal to inspection and full ROM Skin no rashes or lesions noted, no wounds and skin turgor normal Neuro CN's II-XII intact bilaterally Psych affect normal Assessment & Plan Assessment/Plan (1) Lactic acidosis: (2) Thrombocytopenia: (3) Neutropenic fever: PLAN: Day 4 Discharge planning: Patient to discharge home when medically ready. 1) neutropenic fever White blood cell count is currently 1.8 and platelets are 33,000. Absolute neutrophil count is 1.3. All labs continue to improve. Patient does follow with Dr. Stanford for Stage IV breast cancer status post left breast mastectomy and is on Ibrance. Plan; viral respiratory panel pending, ID and pulmonary consult ordered, continue meropenem as well as initiate vancomycin, awaiting CBC/EMV testing. 2) Hypoxia On the afternoon of 10/27, patient developed hypoxia with tachycardia and tachypnea. Unclear etiology at this time as viral respiratory panel, blood cultures, COVID PCR and rapid and chest CTA are all negative for any acute process. Have consulted ID and pulmonology as above. We will continue broad- spectrum antibiotics, obtain echocardiogram, continue Granix and monitor labs/blood work. 3) CKD stage IIIb Creatinine currently 1.18, at baseline. We will continue to monitor. 4) hypothyroidism Continue Synthroid. 5) stage IV breast cancer S/P left breast mastectomy, currently on Ibrance. Follows with Dr. Stanford. Continue anastrozole. 6) hyperlipidemia Continue statin. 7) DM2 Continue Accu-Cheks and sliding scale insulin. 8) hypokalemia Potassium currently 3.3, replaced, continue to monitor BMP. DVT prophylaxis - SCD's, chemoprophylaxis not indicated due to thrombocytopenia. Patient seen by Faisal Hawley PA-C, under the supervision of Dr. Alvarez. Time spent on patient care: 9 minutes. Documented by User: Dr. Ross Alvarez MD 10/29/21 14:24 Subjective Subjective Follow-up for acute hypoxic respiratory failure and neutropenic fever Patient is still having intermittent fever, T-max 102.7 Fahrenheit at about 2 PM. Afebrile in the morning. She is on Airvo. Objective Data Lab / Micro Data Result Diagrams: 10/29/21 05:30 10/29/21 05:30 Physical Exam Narrative General: Alert, Oriented x3, Cooperative HEENT: Atraumatic, PERRLA, EOMI, Normocephalic Oral: No Gingival or Mucosal Lesions/ Ulcerations Neck: Supple, No JVD, Negative Carotid Bruits Lungs: Air entry diminished in bilateral lung bases. On high flow Airvo oxygen. No crepitation/rhonchi Cardiovascular: Regular rate, Regular Rhythm, Normal S1, Normal S2, No murmurs Abdomen: Bowel Sounds Present, Soft, Non Tender, Non-Distended : No renal angle tenderness. No suprapubic tenderness. Extremities: No edema, Capillary Refill Less than 3 Seconds Skin: No rashes, No breakdown Musculoskeletal: No Tenderness to Palpation of Joints or Extremities Neurological: Cranial nerves II-XII grossly intact, DTR 2+/4 and Symmetrical, Neuro grossly intact Psych/Mental Status: Flat affect Assessment & Plan Assessment/Plan (1) Neutropenic fever: PLAN: This patient was seen in conjunction with SUSANA Valdes. I have independently interviewed and examined the patient and reviewed pertinent history, examination findings, laboratory and plan of management. I have reviewed the note and agree with the documented findings with the few additional points. In brief, patient is admitted on 11/11 for fever for last 3 days prior to admission. 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 The patient still having f ever. On meropenem. Vancomycin started today. ID consult. Patient had a scheduled oncology appointment Dr. Stanford but was found to be leukopenic and severe thrombocytopenic. Patient has lactic acidosis. Cultures are negative so far. Respiratory panel negative. ID consult reviewed and recommended oncology evaluation. EBV and CMV ordered. Patient had 2 loose bowel movements but did not had since then. Stool studies ordered but not collected yet. 10/29: Patient still having intermittent fever. On Vanco and meropenem. IV Lasix 40 mg given this morning. On high flow oxygen Airvo. Oncologist consult reviewed. Granix 3 mg subcu daily for neutropenia. Jairon is on hold. Continue anastrozole 1 mg once daily. 2D echo shows EF 70% LV systolic function normal, trivial MR TR and eccentric AR. ID consult reviewed. Recommended if no answer found or not improving over the next 1 to [address] abdomen pelvis with contrast and bone marrow biopsy. Other comorbidities include CKD stage IIIb, hypothyroidism, dyslipidemia and diabetes mellitus type 2. I have discussed my assessment with SUSANA Valdes and orders have been reviewed. Total time of the visit including total time spent in counseling or coordination of care, (more than 50% of the total time, spent in obtaining medical information from nurses and other ancillary care providers,explaining to the pat ient about labs, imaging, diagnosis and management), discussion with consultants, review of labs and imaging is 40 minutes. I spent 25 minutes and SUSANA Malone spent 15 minutes. Charges/Coding Visit Charges Inpatient E&M: 41419 Subs Hosp L3
[2021-10-29 12:45] LABS: Pathologist Review Reviewed
[2021-10-29 17:41] LABS: Bedside Glucose 217 mg/dL (74-106)
--- NOTE | 2021-10-29 20:30 | CPS ---
Decreased O2 to 7 lpm
[2021-10-29] MEDS: Atorvastatin Calcium 10 MG Tablet 5 MG PO (22:35)
[2021-10-29 23:06] LABS: Bedside Glucose 288 mg/dL (74-106)
[2021-10-30] VITALS (20 sets, daily range): BP systolic 125–159; BP diastolic 51–62; PULSE 80–102; RESP 16–22; TEMP 36.9–37.7; O2SAT 76–99
[2021-10-30 05:30] LABS: Absolute Lymphocyte Count 0.51 X10^3/uL (0.83-4.51); Basophil# 0.04 X10^3/uL; Basophil% 1.1 % (0-1); Eosinophil# 0.01 X10^3/uL; Eosinophils% 0.3 % (0-5); Hematocrit 22.6 % (37-47); Hemoglobin 7.7 g/dL (12.0-15.0); Lymphocyte # 0.51 X10^3/ul (0.83-4.51); Lymphocyte % 13.9 % (19-41); Mean Corp Hgb Conc 34.1 g/dL (32-36); Mean Corpuscular Hgb 36.5 pg (27.0-32.0); Mean Corpuscular Volume 107.1 fL (81-99); Mean Platelet Vol. 13.4 fl (6.2-12.0); Monocyte# 0.09 X10^3/uL; Monocyte% 2.5 % (0-10); NRBC Flagged by Analyzer 0 % (0-5); Neutrophil # 2.99 X10^3/uL (2.7-7.7); Neutrophil % 81.7 % (47-70); POSITIVE COUNT YES; POSITIVE DIFFERENTIAL YES; POSITIVE MORPHOLOGY YES; Platelet Count 43 K/mm3 (150-450); RBC Distribution Width CV 13.6 % (11.6-14.6); RBC Distribution Width SD 51.9 fl (35.1-43.9); Red Blood Count 2.11 M/mm3 (4.2-5.4); White Blood Count 3.7 K/mm3 (4.4-11.0)
[2021-10-30 05:31] LABS: Differential Indicated SCAN CRITERIA MET
[2021-10-30 05:45] LABS: Macrocytosis 2+; Platelet Estimate MKD DEC (ADEQ)
[2021-10-30 05:46] LABS: Anisocytosis 1+
[2021-10-30] MEDS: Levothyroxine 25 MCG TABLET PO (05:46)
[2021-10-30 05:58] LABS: Anion Gap 6 (5-15); BUN 19 mg/dL (7-18); BUN/Creat Ratio 22.9 RATIO (10-20); Calcium,Total 9.2 mg/dL (8.5-10.1); Chloride 97 mmol/L (98-107); Creatinine, Serum 0.83 mg/dL (0.55-1.02); EST Glomerular Filtration Rate 71 mL/min (>60); Est Glom Filt Rate - Afr Amer 86 mL/min (>60); Estimated Creatinine Clearance 56.54 ml/min; Glucose 116 mg/dL (74-106); Potassium 4.2 mmol/L (3.5-5.1); Sodium Level 134 mmol/L (136-145)
--- NOTE | 2021-10-30 08:45 | PN.CC_ITS ---
Assessment & Plan Assessment/Plan (1) Neutropenic fever: PLAN: RECOMMENDATIONS: 1. Continue attempts at gentle diuresis as tolerated by hemodynamics and renal function. 2. Wean supplemental oxygen to maintain saturations at or above 90%. 3. Continue broad-spectrum antimicrobials per ID recommendations. 4. Continue to monitor blood counts daily. Transfuse if hemoglobin drops below 7 g/dL. 5. Continue Granix. IMPRESSIONS: 1. Neutropenic fever with associated hypoxia The patient has evidence radiographically of uncomfortable and groundglass opacities, concerning for an underlying pulmonary infectious process. However, I cannot discount the possibility of superimposed pulmonary edema either. Given that BNP was mildly elevated and the patient has had worsening oxygen demand will continue gentle diuresis as tolerated by hemodynamics and renal function. The patient will remain on broad-spectrum antimicrobials per ID recommendations. Lower clinical suspicion for Ibrance related pneumonitis. Continue Granix. Continue to wean oxygen as tolerated for saturations greater than 90%. 2. Acute on chronic kidney disease Resolved. Most likely prerenal in etiology. The patient did initially receive supplemental IV fluid hydration. Continue to monitor urine output for now. 3. Pancytopenia Related to use of Ibrance coupled with underlying infection. Continue to monit or counts daily and continue Granix. No indication for transfusion of blood products at the current time. Transfuse if hemoglobin drops below 7 g/dL. 4. History of breast CA/hypothyroidism/hyperlipidemia Complicates care, management, recovery and prognosis. Continue home medications as indicated. This note was generated with [employer] dictation software. It may contain incorrect words, spelling, and punctuation that were not noted in checking the note before signing. Subjective Subjective The patient was seen and examined at the bedside this morning. Events from the last 24 hours have been reviewed. The patient is currently afebrile, hemodynamically stable and maintaining appropriate oxygen saturations on 10 L high flow nasal cannula. She is currently documented to be overall net +2.5 L for the hospitalization. The patient remains pancytopenic with stable counts. Creatinine is stable. Objective Data Objective Data The patient's most recent lab work, culture data and imaging studies have all been personally reviewed. Surface echocardiogram from January 2020 demonstrated normal LV size and function with an ejection fraction of 55%. Infectious work- up has been unrevealing to date. Vital Signs: Vital Signs Temp Pulse Resp BP Pulse Ox 99.8 F H 93 20 H 125/51 H 91 10/30/21 05:40 10/30/21 07:49 10/30/21 07:49 10/30/21 05:40 10/30/21 08:07 Oxygen Flow Rate (L/min) 10 Oxygen Delivery Method High Flow Weight: 63.1 kg Body Mass Index (BMI) 28.0 Intake & Output: Intake and Output for Last 24 Hours 10/28/21 10/29/21 10/30/21 23:59 23:59 23:59 Intake Total 1310 / 1410 485 / 485 Output Total 1050 / 1250 2325 / 2675 675 / 675 Balance 260 / 160 -1840 / -2190 -675 / -675 Lab / Micro Data Attestation: I reviewed the patient's lab results. Result Diagrams: 10/30/21 04:37 10/30/21 04:37 Labs: Laboratory Results - last 24 hr 10/29/21 05:30: Diff Path Review Reviewed 10/29/21 05:30: Phosphorus 2.4 L, Magnesium 1.4 L 10/29/21 06:21: POC Glucose 86 10/29/21 11:33: POC Glucose 267 H 10/29/21 17:36: POC Glucose 217 H 10/29/21 22:37: POC Glucose 288 H 10/30/21 04:37: WBC 3.7 L, RBC 2.11 L, Hgb 7.7 L, Hct 22.6 L, MCV 107.1 H, MCH 36.5 H, MCHC 34.1, RDW Std Deviation 51.9 H, RDW Coeff of Alex 13.6, Plt Count 43 L*, MPV 13.4 H, Immature Gran % (Auto) 0.500, Neut % (Auto) 81.7 H, Lymph % (Auto) 13.9 L, [place] % (Auto) 2.5, Eos % (Auto) 0.3, Baso % (Auto) 1.1 H, Absolute Neuts (auto) 3.0, Absolute Lymphs (auto) 0.51 L, Nucleated RBC % 0, Diff Path Review May , Platelet Estimate MKD DEC, Anisocytosis 1+, Macrocytosis 2+ 10/30/21 04:37: Sodium 134 L, Potassium 4.2, Chloride 97 L, Carbon Dioxide 31.0, Anion Gap 6, BUN 19 H, Creatinine 0.83, Estim Creat Clear Calc 56.54, Est GFR (MDRD) Af Amer 86, Est GFR (MDRD) Non-Af 71, BUN/Creatinine Ratio 22.9 H, Glucose 116 H, Calcium 9.2 Micro: Microbiology 10/27/21 20:45 Blood Culture (Wb) - Right Wrist Blood Culture - Preliminary No growth in 48 hours. 10/27/21 14:29 Blood Culture (Wb) - Right Wrist Blood Culture - Preliminary No growth in 48 hours. 10/28/21 08:45 Mucosa - Nose Respiratory Panel (PCR) - Final 10/25/21 12:05 Blood Culture (Wb) - Right Wrist Blood Culture - Preliminary No growth in 48 hours. 10/25/21 11:31 Blood Culture (Wb) - Anticubital Right Blood Culture - Preliminary No growth in 48 hours. 10/25/21 12:54 Urine Catheter - Catheter Urine Culture - Final Culture exhibits no growth. 10/25/21 13:07 Nasal Secretion SARS-CoV-2 & FLU Antigen (Rapid) - Final Radiography Diagnostic Testing: Radiology Impression Echocardiogram 10/29/21 06:27 Interpretation Summary The study was technically difficult. Contrast injection was performed. Left ventricular systolic function is normal. The estimated ejection fraction is 70 %. Trivial mitral valve insufficiency. Trivial tricuspid valve insufficiency. Trivial eccentric aortic valve insufficiency. Unable to estimate RV systolic pressure/pulmonary artery pressure due to technically difficult study. No evidence for diastolic dysfunction. Ordering Physician: Michoacano Donato Referring Physician: Celina Dangelo Performed By: Noreen Langford RCS Physical Exam Const alert and oriented x3 General Appearance: cooperative HEENT normocephalic, head/scalp atraumatic and moist oral mucous membranes Eyes PERRL and conjunctivae normal Neck supple General: trachea midline Chest inspection of chest normal Resp no use of accessory muscles Effort and Inspection: able to speak in complete sentences Auscultation: rales bilateral lower Cardio regular rate and regular rhythm GI normal to inspection, nondistended, normoactive bowel sounds Extremity no clubbing, cyanosis or edema Skin no rashes or lesions noted Neuro CN's II-XII intact bilaterally, moves all extremities and no focal motor deficits Psych cooperative and affect normal Charges/Coding Visit Charges Inpatient E&M: 56853 Subs Hosp L2
--- NOTE | 2021-10-30 09:02 | PN.HOSP_ITS ---
Objective Data Objective Data Vital Signs: Vital Signs Temp Pulse Resp BP Pulse Ox 99.8 F H 93 20 H 125/51 H 91 10/30/21 05:40 10/30/21 07:49 10/30/21 07:49 10/30/21 05:40 10/30/21 08:07 Oxygen Flow Rate (L/min) 10 Oxygen Delivery Method High Flow Weight: 139 lb 1.787 oz Body Mass Index (BMI) 28.0 Intake & Output: Intake and Output for Last 24 Hours 10/28/21 10/29/21 10/30/21 23:59 23:59 23:59 Intake Total 1310 / 1410 485 / 485 Output Total 1050 / 1250 2325 / 2675 675 / 675 Balance 260 / 160 -1840 / -2190 -675 / -675 Lab / Micro Data Result Diagrams: 10/30/21 04:37 10/30/21 04:37 Labs: Laboratory Results - last 24 hr 10/29/21 05:30: Diff Path Review Reviewed 10/29/21 06:21: POC Glucose 86 10/29/21 11:33: POC Glucose 267 H 10/29/21 17:36: POC Glucose 217 H 10/29/21 22:37: POC Glucose 288 H 10/30/21 04:37: WBC 3.7 L, RBC 2.11 L, Hgb 7.7 L, Hct 22.6 L, MCV 107.1 H, MCH 36.5 H, MCHC 34.1, RDW Std Deviation 51.9 H, RDW Coeff of Alex 13.6, Plt Count 43 L*, MPV 13.4 H, Immature Gran % (Auto) 0.500, Neut % (Auto) 81.7 H, Lymph % (Auto) 13.9 L, [place] % (Auto) 2.5, Eos % (Auto) 0.3, Baso % (Auto) 1.1 H, Absolute Neuts (auto) 3.0, Absolute Lymphs (auto) 0.51 L, Nucleated RBC % 0, Diff Path Review October, Platelet Estimate MKD DEC, Anisocytosis 1+, Macrocytosis 2+ 10/30/21 04:37: Sodium 134 L, Potassium 4.2, Chloride 97 L, Carbon Dioxide 31.0, Anion Gap 6, BUN 19 H, Creatinine 0.83, Estim Creat Clear Calc 56.54, Est GFR (MDRD) Af Amer 86, Est GFR (MDRD) Non-Af 71, BUN/Creatinine Ratio 22.9 H, Glucose 116 H, Calcium 9.2 Micro: Microbiology 10/27/21 20:45 Blood Culture (Wb) - Right Wrist Blood Culture - Preliminary No growth in 48 hours. 10/27/21 14:29 Blood Culture (Wb) - Right Wrist Blood Culture - Preliminary No growth in 48 hours. 10/28/21 08:45 Mucosa - Nose Respiratory Panel (PCR) - Final 10/25/21 12:05 Blood Culture (Wb) - Right Wrist Blood Culture - Preliminary No growth in 48 hours. 10/25/21 11:31 Blood Culture (Wb) - Anticubital Right Blood Culture - Preliminary No growth in 48 hours. 10/25/21 12:54 Urine Catheter - Catheter Urine Culture - Final Culture exhibits no growth. 10/25/21 13:07 Nasal Secretion SARS-CoV-2 & FLU Antigen (Rapid) - Final Radiography Diagnostic Testing: Radiology Impression Echocardiogram 10/29/21 06:27 Interpretation Summary The study was technically difficult. Contrast injection was performed. Left ventricular systolic function is normal. The estimated ejection fraction is 70 %. Trivial mitral valve insufficiency. Trivial tricuspid valve insufficiency. Trivial eccentric aortic valve insufficiency. Unable to estimate RV systolic pressure/pulmonary artery pressure due to technically difficult study. No evidence for diastolic dysfunction. Ordering Physician: Michoacano Donato Referring Physician: Celina Dangelo Performed By: Noreen Langford RCS Assessment & Plan Assessment/Plan (1) Neutropenic fever: PLAN: This patient was seen in conjunction with SUSANA Valdes. I have independently interviewed and examined the patient and reviewed pertinent history, examination findings, laboratory and plan of management. I have reviewed the note and agree with the documented findings with the few additional points. In brief, patient is admitted on 11/11 for fever for last 3 days prior to admission. 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 The patient still having feve r. On meropenem. Vancomycin started today. ID consult. Patient had a scheduled oncology appointment Dr. Stanford but was found to be leukopenic and severe thrombocytopenic. Patient has lactic acidosis. Cultures are negative so far. Respiratory panel negative. ID consult reviewed and recommended oncology evaluation. EBV and CMV ordered. Patient had 2 loose bowel movements but did not had since then. Stool studies ordered but not collected yet. 10/29: Patient still having intermittent fever. On Vanco and meropenem. IV Lasix 40 mg given this morning. On high flow oxygen Airvo. Oncologist consult reviewed. Granix 3 mg subcu daily for neutropenia. Jairon is on hold. Continue anastrozole 1 mg once daily. 2D echo shows EF 70% LV systolic function normal, trivial MR TR and eccentric AR. ID consult reviewed. Recommended if no answer found or not improving over the next 1 to [address] abdomen pelvis with contrast and bone marrow biopsy. 10/30: Incentive spirometry and Pep For bronchopulmonary hygiene. Lactobacillus added for possible antibiotic related loose bowel movement. No fever last night. Furosemide 40 mg IV 1 dose given. WBC count improving. Patient still is pancytopenic. Monitor CBC Other comorbidities include CKD stage IIIb, hypothyroidism, dyslipidemia and diabetes mellitus type 2. I have discussed my assessment with SUSANA Valdes and orders have been reviewed. Total time of the visit including total time spent in counseling or coordination of care, (more than 50% of the total time, spent in obtaining medical information from nurses and other ancillary care providers,explaining to the patient about labs, imaging, diagnosis and management), discussion with consultants, review of labs and imaging is 40 minutes. I spent 25 minutes and SUSANA Malone spent 15 minutes.
[2021-10-30] MEDS: Furosemide 40 MG/4 ML Vial IV (09:05)
[2021-10-30] MEDS: Insulin Lispro 100 UNIT/ML INSULN.PEN SC ×2 (09:09→15:35)
[2021-10-30] MEDS: Metoprolol(XL)Succ 100 MG Tablet PO (09:14)
[2021-10-30] MEDS: TBO-FILGRASTIM 300 MCG/0.5 ML ML SC (09:15)
[2021-10-30] MEDS: Anastrozole 1 MG TABLET PO (09:15)
[2021-10-30] MEDS: Ranolazine 500 MG Tablet PO (09:15)
[2021-10-30 09:25] LABS: Bedside Glucose 152 mg/dL (74-106)
[2021-10-30 12:06] LABS: Bedside Glucose 126 mg/dL (74-106)
--- NOTE | 2021-10-30 12:14 | PN.HOSP_ITS ---
Documented by User: Faisal MEZA 10/30/21 12:21 Subjective Subjective Patient is a 76-year-old female comfortably resting in bed, alert and orient x3. Patient denies any new complaints overnight, just reports feeling very tired. Does not appear in acute distress. Objective Data Objective Data Vital Signs: Vital Signs Temp Pulse Resp BP Pulse Ox 98.4 F 98 20 H 148/61 H 95 10/30/21 09:03 10/30/21 09:14 10/30/21 09:03 10/30/21 09:03 10/30/21 09:03 Oxygen Flow Rate (L/min) 10 Oxygen Delivery Method High Flow Weight: 139 lb 1.787 oz Body Mass Index (BMI) 28.0 Intake & Output: Intake and Output for Last 24 Hours 10/28/21 10/29/21 10/30/21 23:59 23:59 23:59 Intake Total 1310 / 1410 485 / 485 60 / 60 Output Total 1050 / 1250 2325 / 2675 675 / 675 Balance 260 / 160 -1840 / -2190 -615 / -615 Lab / Micro Data Result Diagrams: 10/30/21 04:37 10/30/21 04:37 Labs: Laboratory Results - last 24 hr 10/29/21 05:30: Diff Path Review Reviewed 10/29/21 11:33: POC Glucose 267 H 10/29/21 17:36: POC Glucose 217 H 10/29/21 22:37: POC Glucose 288 H 10/30/21 04:37: WBC 3.7 L, RBC 2.11 L, Hgb 7.7 L, Hct 22.6 L, MCV 107.1 H, MCH 36.5 H, MCHC 34.1, RDW Std Deviation 51.9 H, RDW Coeff of Alex 13.6, Plt Count 43 L*, MPV 13.4 H, Immature Gran % (Auto) 0.500, Neut % (Auto) 81.7 H, Lymph % (Auto) 13.9 L, Hubbard % (Auto) 2.5, Eos % (Auto) 0.3, Baso % (Auto) 1.1 H, Absolute Neuts (auto) 3.0, Absolute Lymphs (auto) 0.51 L, Nucleated RBC % 0, Diff Path Review May foll, Platelet Estimate MKD DEC, Anisocytosis 1+, Macrocytosis 2+ 10/30/21 04:37: Sodium 134 L, Potassium 4.2, Chloride 97 L, Carbon Dioxide 31.0, Anion Gap 6, BUN 19 H, Creatinine 0.83, Estim Creat Clear Calc 56.54, Est GFR (MDRD) Af Amer 86, Est GFR (MDRD) Non-Af 71, BUN/Creatinine Ratio 22.9 H, Glucose 116 H, Calcium 9.2 10/30/21 08:50: POC Glucose 152 H 10/30/21 10:40: Vancomycin Trough 10.0 10/30/21 11:58: POC Glucose 126 H Micro: Microbiology 10/25/21 11:31 Blood Culture (Wb) - Anticubital Right Blood Culture - Final No growth in 5 days. 10/27/21 20:45 Blood Culture (Wb) - Right Wrist Blood Culture - Preliminary No growth in 48 hours. 10/27/21 14:29 Blood Culture (Wb) - Right Wrist Blood Culture - Preliminary No growth in 48 hours. 10/28/21 08:45 Mucosa - Nose Respiratory Panel (PCR) - Final 10/25/21 12:05 Blood Culture (Wb) - Right Wrist Blood Culture - Preliminary No growth in 48 hours. 10/25/21 12:54 Urine Catheter - Catheter Urine Culture - Final Culture exhibits no growth. 10/25/21 13:07 Nasal Secretion SARS-CoV-2 & FLU Antigen (Rapid) - Final Radiography Diagnostic Testing: Radiology Impression Echocardiogram 10/29/21 06:27 Interpretation Summary The study was technically difficult. Contrast injection was performed. Left ventricular systolic function is normal. The estimated ejection fraction is 70 %. Trivial mitral valve insufficiency. Trivial tricuspid valve insufficiency. Trivial eccentric aortic valve insufficiency. Unable to estimate RV systolic pressure/pulmonary artery pressure due to technically difficult study. No evidence for diastolic dysfunction. ___ Ordering Physician: Michoacano Donato Referring Physician: Celina Dangelo Performed By: Noreen Langford RCS Physical Exam Const alert, oriented x3 and no apparent distress HEENT head/scalp atraumatic and moist oral mucous membranes Head and Scalp: normocephalic Eyes PERRL, EOMs intact bilaterally and conjunctivae normal Neck no lymphadenopathy, supple and no JVD Resp normal respiratory effort, no retractions and no use of accessory muscles Cardio regular rate, regular rhythm and no JVD GI normal to inspection, nondistended, normoactive bowel sounds and soft to palpation Extremity normal to inspection, full ROM and no clubbing, cyanosis or edema Skin no rashes or lesions noted, no wounds and skin turgor normal Neuro CN's II-XII intact bilaterally Psych affect normal Assessment & Plan Assessment/Plan (1) Lactic acidosis: (2) Thrombocytopenia: (3) Hyponatremia: PLAN: Day 5 Discharge planning: Patient to discharge home when medically ready. 1) neutropenic fever Patient has remained afebrile overnight. White blood cell count is currently 3.7 and platelets are r3,000. Absolute neutrophil count is 1.3. All labs continue to improve. Patient does follow with Dr. Stanford for Stage IV breast cancer status post left breast mastectomy and is on Ibrance. Plan; viral respiratory panel pending, ID and pulmonary consult ordered, continue meropenem as well as initiate vancomycin, awaiting CBC/EMV testing. 2) Hypoxia On the afternoon of 10/27, patient developed hypoxia with tachycardia and tachypnea. Unclear etiology at this time as viral respiratory panel, blood cultures, COVID PCR and rapid and chest CTA are all negative for any acute process. Echocardiogram obtained on 517 demonstrated normal LV systolic function, an EF of 70% and no evidence of diastolic dysfunction. Overall noncontributory in regards to patient hypoxia. Have consulted ID and pulmonology as above. We will continue broad-spectrum antibiotics, maintain on Airvo and wean as tolerated to maintain saturations above 90%. 3) CKD stage IIIb Creatinine currently 1.18, at baseline. We will continue to monitor. 4) hypothyroidism Continue Synthroid. 5) stage IV breast cancer S/P left breast mastectomy, currently on Ibrance. Follows with Dr. Masci. Continue anastrozole. 6) hyperlipidemia Continue statin. 7) DM2 Continue Accu-Cheks and sliding scale insulin. 8) hypokalemia Potassium currently 3.3, replaced, continue to monitor BMP. DVT prophylaxis - SCD's, chemoprophylaxis not indicated due to thrombocytopenia. Patient seen by Faisal Hawley PA-C, under the supervision of Dr. Alvarez. Time spent on patient care: 10 minutes. Documented by User: Dr. Ross Alvarez MD 10/30/21 15:42 Subjective Subjective The patient did not had fever last night. Objective Data Lab / Micro Data Result Diagrams: 10/30/21 04:37 10/30/21 04:37 Physical Exam Narrative Seen and examined Patient complain of small amount of loose bowel movement 1 yesterday and today. She is not able to bring up phlegm and feels like it is stuck in her in the throat or down below. Patient did not had fever last night. No chest pain. Denies dyspnea at rest but she is on 10 L high flow oxygen. No tachycardia, hypotension or tachypnea. General: Alert, Oriented x3, Cooperative HEENT: Atraumatic, PERRLA, EOMI, Normocephalic Oral: No Gingival or Mucosal Lesions/ Ulcerations Neck: Supple, No JVD, Negative Carotid Bruits Lungs: Air entry diminished in bilateral lung bases. On high flow oxygen. Bilateral crepitations Cardiovascular: Regular rate, Regular Rhythm, Normal S1, Normal S2, No murmurs Abdomen: Bowel Sounds Present, Soft, Non Tender, Non-Distended : No renal angle tenderness. No suprapubic tenderness. Extremities: No edema, Capillary Refill Less than 3 Seconds Skin: No rashes, No breakdown Musculoskeletal: No Tenderness to Palpation of Joints or Extremities Neurological: Cranial nerves II-XII grossly intact, DTR 2+/4 and Symmetrical, Neuro grossly intact Psych/Mental Status: Flat affect Assessment & Plan Assessment/Plan (1) Neutropenic fever: PLAN: This patient was seen in conjunction with SUSANA Valdes. I have independently interviewed and examined the patient and reviewed pertinent history, examination findings, laboratory and plan of management. I have revie wed the note and agree with the documented findings with the few additional points. In brief, patient is admitted on 11/11 for fever for last 3 days prior to admission. 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 The patient still having fever. On meropenem. Vancomycin started today. ID consult. Patient had a scheduled oncology appointment Dr. Stanford but was found to be leukopenic and severe thrombocytopenic. Patient has lactic acidosis. Cultures are negative so far. Respiratory panel negative. ID consult reviewed and recommended oncology evaluation. EBV and CMV ordered. Patient had 2 loose bowel movements but did not had since then. Stool studies ordered but not collected yet. 10/29: Patient still having intermittent fever. On Vanco and meropenem. IV Lasix 40 mg given this morning. On high flow oxygen Airvo. Oncologist consult reviewed. Granix 3 mg subcu daily for neutropenia. Jairon is on hold. Continue anastrozole 1 mg once daily. 2D echo shows EF 70% LV systolic function normal, trivial MR TR and eccentric AR. ID consult reviewed. Recommended if no answer found or not improving over the next 1 to [address] abdomen pelvis with contrast and bone marrow biopsy. 10/30: Incentive spirometry and Pep For bronchopulmonary hygiene. Acidophilus added for possible antibiotic related loose bowel movement. No fever last night. Furosemide 40 mg IV 1 dose given. WBC count improving. Patient still is pancytopenic. Monitor CBC Other comorbidities include CKD stage IIIb, hypothyroidism, dyslipidemia and diabetes mellitus type 2. Creatinine is stable. Glucose 88 in the morning am. Lantus discontinued. On sliding scale I have discussed my assessment with SUSANA Valdes and orders have been reviewed. Total time of the visit including total time spent in counseling or coordination of care, (more than 50% of the total time, spent in obtaining medical information from nurses and other ancillary care providers,explaining to the patient about labs, imaging, diagnosis and management), discussion with consultants, review of labs and imaging is 40 minutes. I spent 25 minutes and SUSANA Malone spent 15 minutes. Charges/Coding Visit Charges Inpatient E&M: 25446 Subs Hosp L3
--- NOTE | 2021-10-30 12:47 | PCM.RX.CS ---
Consult Pharmacy has been consulted to manage selected antiobiotic: Vancomycin Type of Consult: Follow-up Suspected Infection: Other - NEUTROPENIC FEVER Prior Doses of Antibiotics Received/Current Regimen: Current order of 750mg iv daily. Labs: Sodium 134 mmol/L (136-145) L 10/30/21 04:37 Potassium 4.2 mmol/L (3.5-5.1) 10/30/21 04:37 Chloride 97 mmol/L (98-107) L 10/30/21 04:37 Carbon Dioxide 31.0 mmol/L (21.0-32.0) 10/30/21 04:37 Anion Gap 6 (5-15) 10/30/21 04:37 BUN 19 mg/dL (7-18) H 10/30/21 04:37 Creatinine 0.83 mg/dL (0.55-1.02) 10/30/21 04:37 Est GFR (MDRD) Af Amer 86 mL/min (>60) 10/30/21 04:37 Est GFR (MDRD) Non-Af 71 mL/min (>60) 10/30/21 04:37 BUN/Creatinine Ratio 22.9 RATIO (10-20) H 10/30/21 04:37 Glucose 116 mg/dL (74-106) H 10/30/21 04:37 Vancomycin Trough 10.0 ug/mL (5.0-15.0) 10/30/21 10:40 Microbiology: Microbiology 10/25/21 11:31 Blood Culture (Wb) - Anticubital Right Blood Culture - Final No growth in 5 days. 10/27/21 20:45 Blood Culture (Wb) - Right Wrist Blood Culture - Preliminary No growth in 48 hours. 10/27/21 14:29 Blood Culture (Wb) - Right Wrist Blood Culture - Preliminary No growth in 48 hours. 10/28/21 08:45 Mucosa - Nose Respiratory Panel (PCR) - Final 10/25/21 12:05 Blood Culture (Wb) - Right Wrist Blood Culture - Preliminary No growth in 48 hours. 10/25/21 12:54 Urine Catheter - Catheter Urine Culture - Final Culture exhibits no growth. 10/25/21 13:07 Nasal Secretion SARS-CoV-2 & FLU Antigen (Rapid) - Final Weight used for dosin.1 kg Estimated Creatinine Clearance: ~46ml/min Goal Trough: 15-20 mcg/mL Pharmacy Plan for Drug Dosing: Trough today was sub-therapeutic at 10.0. Creatinine stable. CrCl calculated to be ~46ml/min using adjusted body weight. Will change dose to 750mg iv q12h. Another trough level ordered for before 4th dose of new regimen. Pharmacy Service will continue to monitor and adjust dosing as required. Follow-Up Labs: Trough Vancomycin - 5.19.22 @2230 before 2300 dose
[2021-10-30 15:51] LABS: Bedside Glucose 325 mg/dL (74-106)
--- NOTE | 2021-10-30 18:31 | PN.ID_ITS ---
Physical Exam Narrative Feeling better, fever resolved, still some dyspnea. No n/v/d. Const alert and no apparent distress General Appearance: cooperative Resp normal air movement and clear to auscultation bilaterally Cardio regular rate and regular rhythm GI soft to palpation, non-tender and non-distended Skin no rashes or lesions noted ID ID: Route of nutrition/ use of supplements: [] Nutritional Intake: [] IV Site: [] Justice Catheter: [] Assessment & Plan Assessment/Plan (1) Metastatic breast cancer: (2) Neutropenic fever: PLAN: Neutropenic fever with new pancytopenia of unclear source. ANC recovered, fever resolved. Cxs neg so far, viral panel neg. Cont vanc/meropenem. Checking cmv/ebc. Likely can stop abx soon if remains a febrile. Will follow
[2021-10-30] MEDS: Atorvastatin Calcium 10 MG Tablet 5 MG PO (20:44)
[2021-10-30 22:46] LABS: Bedside Glucose 112 mg/dL (74-106)
[2021-10-31] VITALS (14 sets, daily range): BP systolic 105–139; BP diastolic 47–69; PULSE 87–95; RESP 16–21; TEMP 36.7–37.7; O2SAT 84–100
[2021-10-31 05:32] LABS: Hematocrit 20.6 % (37-47); Hemoglobin 7.2 g/dL (12.0-15.0); Mean Corpuscular Hgb 36.5 pg (27.0-32.0); Mean Corpuscular Volume 104.6 fL (81-99); Mean Platelet Vol. 12.8 fl (6.2-12.0); POSITIVE COUNT YES; POSITIVE DIFFERENTIAL YES; POSITIVE MORPHOLOGY YES; Platelet Count 43 K/mm3 (150-450); RBC Distribution Width CV 13.3 % (11.6-14.6); Red Blood Count 1.97 M/mm3 (4.2-5.4); White Blood Count 3.6 K/mm3 (4.4-11.0)
[2021-10-31 05:43] LABS: Differential Indicated MANUAL DIFF
--- NOTE | 2021-10-31 05:54 | RAD_ITS ---
STUDY: X-RAY CHEST REASON FOR EXAM: Female, 76 years old. Respiratory Failure TECHNIQUE: AP portable upright COMPARISON: None. FINDINGS: There is increasing infiltrate in the right lung as well as nodularity at the right lower lung field. There is a nodule at the right lung base not seen previously. The left lung is unchanged. There is no demonstrated pleural abnormality. Normal size heart. Normal mediastinum and ruddy. Normal visualized pulmonary arteries. Normal visualized aortic arch and descending thoracic aorta. Normal visualized thoracic spine. Normal visualized ribs, clavicles, and shoulders. There is no demonstrated abnormality of the visualized soft tissue structures of the upper abdomen. RAD/Chest 1 View (Portable) IMPRESSION: There is increasing infiltrate in the right lung. Electronically Signed: Slick Jacobs MD at 6:49 EDT ,
[2021-10-31 06:03] LABS: Anion Gap 6 (5-15); BUN 23 mg/dL (7-18); BUN/Creat Ratio 27.1 RATIO (10-20); Calcium,Total 8.9 mg/dL (8.5-10.1); Chloride 93 mmol/L (98-107); Creatinine, Serum 0.85 mg/dL (0.55-1.02); EST Glomerular Filtration Rate 69 mL/min (>60); Est Glom Filt Rate - Afr Amer 83 mL/min (>60); Estimated Creatinine Clearance 55.21 ml/min; Glucose 156 mg/dL (74-106); Potassium 3.9 mmol/L (3.5-5.1); Sodium Level 133 mmol/L (136-145)
[2021-10-31 06:12] LABS: Macrocytosis 1+; Platelet Estimate MOD DEC (ADEQ)
[2021-10-31 06:15] LABS: Absolute Lymphocyte Count 0.44 X10^3/uL (0.83-4.51); Absolute Neutrophil Count 3.1 X10^3/uL (2.0-7.7); Neutrophil-Band 15 % (0-5); Neutrophil-Segmented 69 % (47-70); Total Cells Counted 100 (MANUAL DIFF)
[2021-10-31 06:16] LABS: Eosinophil 1 % (0-5); Lymphocyte 12 % (19-41); Myelocyte 3 % (0-0); Nucleated Red Bld Cells,Manual 1 % (0-5)
[2021-10-31] MEDS: Levothyroxine 25 MCG TABLET PO (06:23)
--- NOTE | 2021-10-31 06:41 | PN.CC_ITS ---
Assessment & Plan Assessment/Plan (1) Neutropenic fever: PLAN: RECOMMENDATIONS: 1. Given increased serum bicarbonate and concern for contraction alkalosis, will hold off on diuretics today. 2. Wean supplemental oxygen to maintain saturations at or above 90%. 3. Continue broad-spectrum antimicrobials per ID recommendations. 4. Continue to monitor blood counts daily. Transfuse if hemoglobin drops below 7 g/dL. 5. Continue Granix. 6. Await results of CMV and EBV work-up. IMPRESSIONS: 1. Neutropenic fever with associated hypoxia The patient has evidence radiographically of uncomfortable and groundglass opacities, concerning for an underlying pulmonary infectious process. However, I cannot discount the possibility of superimposed pulmonary edema either. The patient has been diuresed over the last several days without any significant improvement in her respiratory status. Given that she appears to have a contraction alkalosis, will hold off on further diuretics today. The patient will remain on broad-spectrum antimicrobials per ID recommendations. CMV and EBV work-up are currently pending. Although initially of lower clinical suspicion for Ibrance related pneumonitis, if the patient does not begin to improve may need to consider corticosteroid use. Continue Granix. Continue to wean oxygen as tolerated for saturations greater than 90%. 2. Acute on chronic kidney disease Resolved. Most likely prerenal in etiology. The patient did initially receive supplemental IV fluid hydration. Continue to monitor urine output for now. 3. Pancytopenia Related to use of Ibrance coupled with underlying infection. Continue to monitor counts daily and continue Granix. No indication for transfusion of blood products at the current time. Transfuse if hemoglobin drops below 7 g/dL. 4. History of breast CA/hypothyroidism/hyperlipidemia Complicates care, management, recovery and prognosis. Continue home medications as indicated. This note was generated with [employer] dictation software. It may contain incorrect words, spelling, and punctuation that were not noted in checking the note before signing. Subjective Subjective The patient was seen and examined at the bedside this morning. Events from the last 24 hours have been reviewed. The patient is currently afebrile, hemodynamically stable and maintaining appropriate oxygen saturations on 14 L/min high flow nasal cannula. The patient is currently documented to be overall net +2.2 L for the hospitalization. She did receive Lasix again yesterday. The patient remains on broad-spectrum antimicrobials and Granix. She remains pancytopenic with a hemoglobin of 7.2 g/dL and a platelet count of 43,000. Repeat chest x-ray was obtained this morning and revealed bilateral infiltrates with progression throughout the right hemithorax. Objective Data Objective Data The patient's most recent lab work, culture data and imaging studies have all been personally reviewed. Surface echocardiogram from January 2020 demonstrated normal LV size and function with an ejection fraction of 55%. Infectious work- up has been unrevealing to date. Vital Signs: Vital Signs Temp Pulse Resp BP Pulse Ox 99.1 F 89 20 H 137/64 H 95 10/31/21 05:38 10/31/21 05:38 10/31/21 05:38 10/31/21 05:38 10/31/21 05:38 Oxygen Flow Rate (L/min) 14 Oxygen Delivery Method High Flow Weight: 63.1 kg Body Mass Index (BMI) 28.0 Intake & Output: Intake and Output for Last 24 Hours 10/29/21 10/30/21 10/31/21 23:59 23:59 23:59 Intake Total 485 / 485 1885 / 1885 265 / 265 Output Total 2325 / 2675 2775 / 2775 350 / 350 Balance -1840 / -2190 -890 / -890 -85 / -85 Lab / Micro Data Attestation: I reviewed the patient's lab results. Result Diagrams: 10/31/21 04:44 10/31/21 04:44 Labs: Laboratory Results - last 24 hr 10/30/21 08:50: POC Glucose 152 H 10/30/21 10:40: Vancomycin Trough 10.0 10/30/21 11:58: POC Glucose 126 H 10/30/21 15:33: POC Glucose 325 H 10/30/21 22:40: POC Glucose 112 H 10/31/21 04:44: WBC 3.6 L, RBC 1.97 L, Hgb 7.2 L, Hct 20.6 L, MCV 104.6 H, MCH 36.5 H, MCHC 35.0, RDW Std Deviation 50.0 H, RDW Coeff of Alex 13.3, Plt Count 43 L*, MPV 12.8 H, Neut % (Auto) Not Reportable, Absolute Neuts (auto) 3.1, Absolu te Lymphs (auto) 0.44 L, Total Counted 100, Neutrophils % (Manual) 69, Band N eutrophils % 15 H, Lymphocytes % (Manual) 12 L, Eosinophils % (Manual) 1, Myelocytes % 3 H, Nucleated RBCs/100 WBC 1, Diff Path Review May foll, Platelet Estimate MOD DEC, Macrocytosis 1+ 10/31/21 04:44: Sodium 133 L, Potassium 3.9, Chloride 93 L, Carbon Dioxide 34.0 H, Anion Gap 6, BUN 23 H, Creatinine 0.85, Estim Creat Clear Calc 55.21, Est GFR (MDRD) Af Amer 83, Est GFR (MDRD) Non-Af 69, BUN/Creatinine Ratio 27.1 H, Glucose 156 H, Calcium 8.9 Micro: Microbiology 10/25/21 12:05 Blood Culture (Wb) - Right Wrist Blood Culture - Final No growth in 5 days. 10/25/21 11:31 Blood Culture (Wb) - Anticubital Right Blood Culture - Final No growth in 5 days. 10/27/21 20:45 Blood Culture (Wb) - Right Wrist Blood Culture - Preliminary No growth in 48 hours. 10/27/21 14:29 Blood Culture (Wb) - Right Wrist Blood Culture - Preliminary No growth in 48 hours. 10/28/21 08:45 Mucosa - Nose Respiratory Panel (PCR) - Final 10/25/21 12:54 Urine Catheter - Catheter Urine Culture - Final Culture exhibits no growth. 10/25/21 13:07 Nasal Secretion SARS-CoV-2 & FLU Antigen (Rapid) - Final Physical Exam Const alert General Appearance: cooperative and ill appearing HEENT normocephalic, head/scalp atraumatic and moist oral mucous membranes Eyes PERRL and conjunctivae normal Neck supple General: trachea midline Chest inspection of chest normal Resp no use of accessory muscles Effort and Inspection: able to speak in complete sentences Auscultation: rales bilateral lower Cardio regular rate and regular rhythm GI normal to inspection, nondistended, normoactive bowel sounds Extremity no clubbing, cyanosis or edema Skin no rashes or lesions noted Neuro CN's II-XII intact bilaterally, moves all extremities and no focal motor deficits Psych Mood & Affect: flat affect Charges/Coding Visit Charges Inpatient E&M: 50992 Subs Hosp L3
[2021-10-31 06:46] LABS: Bedside Glucose 148 mg/dL (74-106)
[2021-10-31] MEDS: Na Biphos/Potassium Phosphate PACKET 1 PACKET PO ×3 (09:29→23:43)
[2021-10-31 09:34] LABS: Pathologist Review Reviewed
--- NOTE | 2021-10-31 09:59 | NURSING ---
Addendum entered by Jenny Berg 10/31/21 10:08: pt educated on risks/ramifications of refusing AIRVO and hypoxia. pt continues to refuse, primary nurse Nory at bedside as well and aware of pt refusal. Text to MD to request return phone call to update. Original Note: pt sats 82% on 15L high flow while pt resting in bed eyes closed, high folwers. spo2 already changed on finger prior. in to room, pt awakens and states she is refusing to have airvo applied. when awake, spo2 91% on 15L.
--- NOTE | 2021-10-31 10:27 | PCM.PN.ID ---
Physical Exam Narrative Feeling about the same, no fever, still some dyspnea Const alert and no apparent distress General Appearance: cooperative Resp normal air movement and clear to auscultation bilaterally Cardio regular rate and regular rhythm GI soft to palpation, non-tender and non-distended Skin no rashes or lesions noted ID ID: Route of nutrition/ use of supplements: [] Nutritional Intake: [] IV Site: [] Justice Catheter: [] Assessment & Plan Assessment/Plan (1) Metastatic breast cancer: (2) Neutropenic fever: PLAN: Neutropenic fever with new pancytopenia of unclear source. ANC recovered, fever resolved. Viral panel neg. Will stop vanc. Cont meropenem for now, plan on 5-7 day course. Checking cmv/ebc. Will follow
[2021-10-31] MEDS: Anastrozole 1 MG TABLET PO (10:41)
[2021-10-31] MEDS: Ranolazine 500 MG Tablet PO (10:41)
[2021-10-31] MEDS: Metoprolol(XL)Succ 100 MG Tablet PO (10:42)
--- NOTE | 2021-10-31 11:10 | PN.HOSP_ITS ---
Subjective Subjective Follow-up for neutropenic fever. As per nursing staff patient refusing for Airvo. Objective Data Objective Data Vital Signs: Vital Signs Temp Pulse Resp BP Pulse Ox 99.1 F 95 21 H 126/60 H 91 10/31/21 05:38 10/31/21 10:42 10/31/21 10:01 10/31/21 10:01 10/31/21 10:01 Oxygen Flow Rate (L/min) 15 Oxygen Delivery Method High Flow Weight: 139 lb 1.787 oz Body Mass Index (BMI) 28.0 Intake & Output: Intake and Output for Last 24 Hours 10/29/21 10/30/21 10/31/21 23:59 23:59 23:59 Intake Total 485 / 485 1885 / 1885 369 / 369 Output Total 2325 / 2675 2775 / 2775 350 / 350 Balance -1840 / -2190 -890 / -890 Lab / Micro Data Result Diagrams: 10/31/21 04:44 10/31/21 04:44 Labs: Laboratory Results - last 24 hr 10/29/21 05:30: Histoplasma Antibody Cancelled 10/30/21 04:37: Diff Path Review Reviewed 10/30/21 10:40: Vancomycin Trough 10.0 10/30/21 11:58: POC Glucose 126 H 10/30/21 15:33: POC Glucose 325 H 10/30/21 22:40: POC Glucose 112 H 10/31/21 04:44: WBC 3.6 L, RBC 1.97 L, Hgb 7.2 L, Hct 20.6 L, MCV 104.6 H, MCH 36.5 H, MCHC 35.0, RDW Std Deviation 50.0 H, RDW Coeff of Alex 13.3, Plt Count 43 L*, MPV 12.8 H, Neut % (Auto) Not Reportable, Absolute Neuts (auto) 3.1, Absolute Lymphs (auto) 0.44 L, Total Counted 100, Neutrophils % (Manual) 69, Band Neutrophils % 15 H, Lymphocytes % (Manual) 12 L, Eosinophils % (Manual) 1, Myelocytes % 3 H, Nucleated RBCs/100 WBC 1, Diff Path Review May , Platelet Estimate MOD DEC, Macrocytosis 1+ 10/31/21 04:44: Sodium 133 L, Potassium 3.9, Chloride 93 L, Carbon Dioxide 34.0 H, Anion Gap 6, BUN 23 H, Creatinine 0.85, Estim Creat Clear Calc 55.21, Est GFR (MDRD) Af Amer 83, Est GFR (MDRD) Non-Af 69, BUN/Creatinine Ratio 27.1 H, Glucose 156 H, Calcium 8.9 10/31/21 06:20: POC Glucose 148 H Micro: Microbiology 10/25/21 12:05 Blood Culture (Wb) - Right Wrist Blood Culture - Final No growth in 5 days. 10/25/21 11:31 Blood Culture (Wb) - Anticubital Right Blood Culture - Final No growth in 5 days. 10/27/21 20:45 Blood Culture (Wb) - Right Wrist Blood Culture - Preliminary No growth in 48 hours. 10/27/21 14:29 Blood Culture (Wb) - Right Wrist Blood Culture - Preliminary No growth in 48 hours. 10/28/21 08:45 Mucosa - Nose Respiratory Panel (PCR) - Final 10/25/21 12:54 Urine Catheter - Catheter Urine Culture - Final Culture exhibits no growth. 10/25/21 13:07 Nasal Secretion SARS-CoV-2 & FLU Antigen (Rapid) - Final Radiography Diagnostic Testing: Radiology Impression Chest X-Ray 10/31/21 05:54 IMPRESSION: There is increasing infiltrate in the right lung. Electronically Signed: Slick Jacobs MD at 6:49 EDT , Physical Exam Narrative Seen and examined Last bowel movement has stopped. Pulse ox in mid 80s on 15 L of oxygen. Mild tachypnea. Patient refusing for Airvo. On incentive spirometry and Pep. Further decreasing hemoglobin. No high-grade fever last 48 hours. No tachycardia, hypotension General: Alert, Oriented x3, Cooperative HEENT: Atraumatic, PERRLA, EOMI, Normocephalic Oral: No Gingival or Mucosal Lesions/ Ulcerations Neck: Supple, No JVD, Negative Carotid Bruits Lungs: Air entry diminished in bilateral lung bases. Hypoxic on high flow oxygen. Bilateral crepitations Cardiovascular: Regular rate, Regular Rhythm, Normal S1, Normal S2, No murmurs Abdomen: Bowel Sounds Present, Soft, Non Tender, Non-Distended : No renal angle tenderness. No suprapubic tenderness. Extremities: No edema, Capillary Refill Less than 3 Seconds Skin: No rashes, No breakdown Musculoskeletal: No Tenderness to Palpation of Joints or Extremities Neurological: Cranial nerves II-XII grossly intact, DTR 2+/4 and Symmetrical, Neuro grossly intact Psych/Mental Status: Flat affect Assessment & Plan Assessment/Plan (1) Neutropenic fever: PLAN: 1. Neutropenic fever, of unclear source: The patient is admitted on 11/11 for fever for last 3 days prior to admission. 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 The patient still having fever. On meropenem. Vancomycin started on 10/28. ID consult. Patient had a scheduled oncology appointment Dr. Stanford but was found to be leukopenic and severe thrombocytopenic. Patient has lactic acidosis. Cultures are negative so far. Respiratory panel negative. ID consult reviewed and recommended oncology evaluation. EBV and CMV ordered. Patient had loose bowel movements. 10/29: Patient still having intermittent fever. On Vanco and meropenem. IV Lasix 40 mg given this morning. On high flow oxygen Airvo. Oncologist consult reviewed. Granix 3 mg subcu daily for neutropenia. Jairon is on hold. Continue anastrozole 1 mg once daily. 2D echo shows EF 70% LV systolic function normal, trivial MR TR and eccentric AR. ID consult reviewed. Recommended if no answer found or not improving over the next 1 to [address] abdomen pelvis with contrast and bone marrow biopsy. 10/30: Incentive spirometry and Pep For bronchopulmonary hygiene. Acidophilus added for possible antibiotic related loose bowel movement. No fever last night. Furosemide 40 mg IV 1 dose given. WBC count improving. Patient still i s pancytopenic. Monitor CBC 10/31: Hypoxia worsened on high flow oxygen. Patient agreeable for Airvo. Cultures reviewed. Blood cultures negative for more than 48 hours. EBV CMV pending. No fever in last 48 hours. Vancomycin discontinued, continue meropenem as recommended by ID. ID consult reviewed 2. Acute hypoxic respiratory failure: Patient on high flow oxygen and Airvo. 3. CKD stage IIIb: Creatinine 0.85 increasing bicarb, low sodium due to Lasix. Lasix on hold. 4. Diabetes mellitus type 2: Patient has insulin pump. Creatinine is stable. Glucose 88 in the morning am. Lantus discontinued. On sliding scale. Acceptable glucose level. Patient had low glucose on 10/29. 5. hypothyroidism Continue Synthroid. 6. Stage IV breast cancer S/P left breast mastectomy, currently on Ibrance. Follows with Dr. Stanford. Continue anastrozole. 7. Dyslipidemia Continue statin. 8. Hypokalemia: Resolved. Continue monitoring BMP. DVT prophylaxis - SCD's, chemoprophylaxis not indicated due to thrombocytopenia. Total time of the visit including total time spent in counseling or coordination of care, (more than 50% of the total time, spent in obtaining medical information from nurses and other ancillary care providers,explaining to the patient about labs, imaging, diagnosis and management), discussion with consultants, review of labs and imaging is 40 minutes. I spent 25 minutes and SUSANA Malone spent 15 minutes. Charges/Coding Visit Charges Inpatient E&M: 88378 [facility] Hosp L3
--- NOTE | 2021-10-31 11:11 | NURSING ---
per CPS pt is now agreeable to airvo and she placed pt on AIRVO 55L @ 79%. current sat on continuous monitor is spo2 94%, resps 20, heart rate 94.
[2021-10-31] MEDS: TBO-FILGRASTIM 300 MCG/0.5 ML ML SC (11:23)
[2021-10-31 11:31] LABS: Bedside Glucose 162 mg/dL (74-106)
--- NOTE | 2021-10-31 13:59 | NURSING ---
Report given to Snehal RN nurse to take over care of pt
--- NOTE | 2021-10-31 15:44 | CASEMGMT ---
TC to lab to check on timing of results for CMV. Per laborer wharf, because this is a send out and takes approx 5-7 days.
[2021-10-31] MEDS: Atorvastatin Calcium 10 MG Tablet 5 MG PO (23:42)
--- NOTE | 2021-10-31 23:50 | NURSING ---
Blood sugar 218. 1.4 units of insulin self-administered at this time via insulin pump.
[2021-11-01] VITALS (31 sets, daily range): BP systolic 81–150; BP diastolic 35–92; PULSE 69–94; RESP 15–23; TEMP 36.2–37.6; O2SAT 77–100
--- NOTE | 2021-11-01 | FLU_PTH ---
PATIENT: BASSAM JAIN LOC: [facility] U#:[id number] AGE/SX: 76/F ROOM: [facility] RE10/25/[address]: Dr. Karel Landa DO : 1945 BED: 1 DIS: 11/07/2021 SPEC #: [id number] RECD: 11/01/21 10:53 STATUS: GINA REJurgen #: [id number] HENRI: 11/01/21 00:[address]: [place]oacano Donato DEPT: CYTOLOGY RECD BY: Cristiane Pereira ENTERED: 11/01/21 13:47 SP TYPE: Fluid OTHR DR: MD Dr. John Glover MD Dr. Lapman Lun, MD Dr. Lisa Malys, DO Dr. Ross Funez Dr., MD Dr. Robert Leininger, MD Christina Muller, MONOGRAM AND LETTER PASTER-C Tissues: A - Lung, NOS B - Lung, NOS Procedures: Special Stain Group II Surgery Specimen Level IV Cytospin Fluid HEADER OPERATION: Bronchoscopy with BAL PRE-OP DIAGNOSIS: Respiratory failure TISSUE SUBMITTED: A ? BAL lingula, B ? BAL RML DIAGNOSIS CYTOLOGY A. Bronchioalveolar lavage, lingula (cytospin and cell block): Negative for malignant cells. B. Bronchioalveolar lavage, right middle lobe of lung (cytospin and cell block): Negative for malignant cells. AM:dawit 11/04/2021 CYTOLOGY STUDY Slides are reviewed. CYTOLOGY GROSS A - Received is 7 ml of light pink hazy fluid labeled with the patient's name and and designated per the requisition as BAL lingula. Submitted for cytology preparation including cell block. B - Received is 15 ml of light red cloudy fluid labeled with the patient's name and and designated per the requisition as BAL RML. Submitted for cytology preparation including cell block. / dawit 11/01/2021 TC:5 CPT: 02134 x2, 15425 x2
[2021-11-01 05:47] LABS: Magnesium 1.6 mg/dL (1.6-2.6)
--- NOTE | 2021-11-01 06:08 | PN.CC_ITS ---
Assessment & Plan Assessment/Plan (1) Neutropenic fever: PLAN: RECOMMENDATIONS: 1. Proceed with bronchoscopy this morning. 2. Continue antimicrobials per ID recommendations. 3. Await CMV/EBV serologies. 4. Continue Granix. 5. Continue to monitor blood counts daily. Transfuse if hemoglobin drops below 7 g/dL. IMPRESSIONS: 1. Neutropenic fever with associated hypoxia The patient has evidence radiographically of uncomfortable and groundglass opacities, concerning for an underlying pulmonary infectious process. However, I cannot discount the possibility of superimposed pulmonary edema either. The patient has been diuresed over the last several days without any significant improvement in her respiratory status. The patient will remain on broad- spectrum antimicrobials per ID recommendations. CMV and EBV work-up are current ly pending. Although initially of lower clinical suspicion for Ibrance related pneumonitis, if the patient does not begin to improve may need to consider corticosteroid use. Continue Granix. Continue to wean oxygen as tolerated for saturations greater than 90%. Given the undifferentiated nature of her continued respiratory failure, will proceed with bronchoscopy this morning. 2. Acute on chronic kidney disease Resolved. Most likely prerenal in etiology. The patient did initially receive supplemental IV fluid hydration. Continue to monitor urine output for now. 3. Pancytopenia Related to use of Ibrance coupled with underlying infection. Continue to monitor counts daily and continue Granix. No indication for transfusion of blood products at the current time. Transfuse if hemoglobin drops below 7 g/dL. 4. History of breast CA/hypothyroidism/hyperlipidemia Complicates care, management, recovery and prognosis. Continue home medications as indicated. This note was generated with [employer] dictation software. It may contain incorrect words, spelling, and punctuation that were not noted in checking the note before signing. Subjective Subjective The patient was seen and examined at the bedside this morning. Events from the last 24 hours have been reviewed. The patient is currently afebrile, hemodynamically stable and maintaining appropriate oxygen saturations on Airvo heated high flow with an FiO2 requirement of 65%. Following discussion with both oncology and infectious diseases yesterday, and taking into account the patient's wishes, there are tentative plans to proceed with bronchoscopy with BAL this morning at 10 AM. The patient was understanding of the risk associated with performing the procedure in terms that it could lead to further decompensation in her respiratory status and the need for possible intubation. She is currently documented to be overall net +2.9 L for the hospitalization. She remains on broad-spectrum antimicrobials and Granix. EBV and CMV serology are still pending. Objective Data Objective Data The patient's most recent lab work, culture data and imaging studies have all been personally reviewed. Surface echocardiogram from January 2020 demonstrated normal LV size and function with an ejection fraction of 55%. Infectious work- up has been unrevealing to date. Vital Signs: Vital Signs Temp Pulse Resp BP Pulse Ox 99.1 F 86 18 117/47 L 92 11/01/21 04:52 11/01/21 05:10 11/01/21 05:10 11/01/21 04:52 11/01/21 05:10 Oxygen Flow Rate (L/min) 55 Oxygen Delivery Method Airvo Weight: 63.1 kg Body Mass Index (BMI) 28.0 Intake & Output: Intake and Output for Last 24 Hours 10/30/21 10/31/21 11/01/21 23:59 23:59 23:59 Intake Total 1885 / 1885 1629 / 1629 60 / 60 Output Total 2775 / 2775 1100 / 1100 Balance -890 / -890 529 / 529 60 / 60 Lab / Micro Data Result Diagrams: 10/31/21 04:44 10/31/21 04:44 Labs: Laboratory Results - last 24 hr 10/29/21 05:30: Histoplasma Antibody Cancelled 10/30/21 04:37: Diff Path Review Reviewed 10/31/21 04:44: Absolute Neuts (auto) 3.1, Absolute Lymphs (auto) 0.44 L, Total Counted 100, Neutrophils % (Manual) 69, Band Neutrophils % 15 H, Lymphocytes % (Manual) 12 L, Eosinophils % (Manual) 1, Myelocytes % 3 H, Nucleated RBCs/100 WBC 1, Diff Path Review May foll, Platelet Estimate MOD DEC, Macrocytosis 1+ 10/31/21 06:20: POC Glucose 148 H 10/31/21 11:21: POC Glucose 162 H 11/01/21 05:14: Magnesium 1.6 Micro: Microbiology 10/25/21 12:05 Blood Culture (Wb) - Right Wrist Blood Culture - Final No growth in 5 days. 10/25/21 11:31 Blood Culture (Wb) - Anticubital Right Blood Culture - Final No growth in 5 days. 10/27/21 20:45 Blood Culture (Wb) - Right Wrist Blood Culture - Preliminary No growth in 48 hours. 10/27/21 14:29 Blood Culture (Wb) - Right Wrist Blood Culture - Preliminary No growth in 48 hours. 10/28/21 08:45 Mucosa - Nose Respiratory Panel (PCR) - Final 10/25/21 12:54 Urine Catheter - Catheter Urine Culture - Final Culture exhibits no growth. 10/25/21 13:07 Nasal Secretion SARS-CoV-2 & FLU Antigen (Rapid) - Final Radiography Diagnostic Testing: Radiology Impression Chest X-Ray 10/31/21 05:54 IMPRESSION: There is increasing infiltrate in the right lung. Electronically Signed: Slick Jacobs MD at 6:49 EDT , Physical Exam Const alert Constitutional Narrative: Remains on Airvo heated high flow nasal cannula. General Appearance: cooperative and ill appearing HEENT normocephalic, head/scalp atraumatic and moist oral mucous membranes Eyes PERRL and conjunctivae normal Neck supple General: trachea midline Chest inspection of chest normal Resp no use of accessory muscles Effort and Inspection: able to speak in complete sentences Auscultation: diminished lung sounds Cardio regular rate and regular rhythm GI normal to inspection, nondistended, normoactive bowel sounds Extremity no clubbing, cyanosis or edema Skin no rashes or lesions noted Neuro CN's II-XII intact bilaterally, moves all extremities and no focal motor deficits Psych Mood & Affect: flat affect Charges/Coding Visit Charges Inpatient E&M: 55888 Subs Hosp L3
--- NOTE | 2021-11-01 06:30 | NURSING ---
PT blood sugar 238 but had not yet given herself any insulin
--- NOTE | 2021-11-01 07:51 | PN.HOSP_ITS ---
Subjective Subjective Follow-up for neutropenic fever. Patient still short of breath and is on Airvo. Objective Data Objective Data Vital Signs: Vital Signs Temp Pulse Resp BP Pulse Ox 99.1 F 86 18 117/47 L 92 11/01/21 04:52 11/01/21 05:10 11/01/21 05:10 11/01/21 04:52 11/01/21 05:10 Oxygen Flow Rate (L/min) 55 Oxygen Delivery Method Airvo Weight: 139 lb 1.787 oz Body Mass Index (BMI) 28.0 Intake & Output: Intake and Output for Last 24 Hours 10/30/21 10/31/21 11/01/21 23:59 23:59 23:59 Intake Total 1885 / 1885 1629 / 1629 60 / 60 Output Total 2775 / 2775 1100 / 1100 Balance -890 / -890 529 / 529 60 / 60 Lab / Micro Data Result Diagrams: 11/01/21 08:00 11/01/21 08:00 Labs: Laboratory Results - last 24 hr 10/29/21 05:30: Histoplasma Antibody Cancelled 10/30/21 04:37: Diff Path Review Reviewed 10/31/21 11:21: POC Glucose 162 H 11/01/21 05:14: Magnesium 1.6 Micro: Microbiology 10/25/21 12:05 Blood Culture (Wb) - Right Wrist Blood Culture - Final No growth in 5 days. 10/25/21 11:31 Blood Culture (Wb) - Anticubital Right Blood Culture - Final No growth in 5 days. 10/27/21 20:45 Blood Culture (Wb) - Right Wrist Blood Culture - Preliminary No growth in 48 hours. 10/27/21 14:29 Blood Culture (Wb) - Right Wrist Blood Culture - Preliminary No growth in 48 hours. 10/28/21 08:45 Mucosa - Nose Respiratory Panel (PCR) - Final 10/25/21 12:54 Urine Catheter - Catheter Urine Culture - Final Culture exhibits no growth. 10/25/21 13:07 Nasal Secretion SARS-CoV-2 & FLU Antigen (Rapid) - Final Physical Exam Narrative Seen and examined Last bowel movement has stopped. On incentive spirometry and Pep. Further decreasing hemoglobin. Temperature profile reviewed. Last fever 103.1 Fahrenheit on 10/28 after that she had low-grade temperature T-max 99.9 Fahrenheit on 10/30. No tachycardia, hypotension General: Alert, Oriented x3, Cooperative HEENT: Atraumatic, PERRLA, EOMI, Normocephalic Oral: No Gingival or Mucosal Lesions/ Ulcerations Neck: Supple, No JVD, Negative Carotid Bruits Lungs: Air entry diminished in bilateral lung bases. Hypoxic on high flow oxygen. Bilateral crepitations Cardiovascular: Regular rate, Regular Rhythm, Normal S1, Normal S2, No murmurs Abdomen: Bowel Sounds Present, Soft, Non Tender, Non-Distended : No renal angle tenderness. No suprapubic tenderness. Extremities: No edema, Capillary Refill Less than 3 Seconds Skin: No rashes, No breakdown Musculoskeletal: No Tenderness to Palpation of Joints or Extremities Neurological: Cranial nerves II-XII grossly intact, DTR 2+/4 and Symmetrical, Neuro grossly intact Psych/Mental Status: Flat affect Assessment & Plan Assessment/Plan (1) Neutropenic fever: PLAN: 1. Neutropenic fever, of unclear source: The patient is admitted on 11/11 for fever for last 3 days prior to admission. 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 The patient still having fever. On meropenem. Vancomycin started on 10/28. ID consult. Patient had a scheduled oncology appointment Dr. Stanford but was found to be leukopenic and severe thrombocytopenic. Patient has lactic acidosis. Cultures are negative so far. Respiratory panel negative. ID consult reviewed and recommended oncology evaluation. EBV and CMV ordered. Patient had loose bowel movements. 10/29: Patient still having intermittent fever. On Vanco and meropenem. IV Lasix 40 mg given this morning. On high flow oxygen Airvo. Oncologist consult reviewed. Granix 3 mg subcu daily for neutropenia. Jairon is on hold. Continue anastrozole 1 mg once daily. 2D echo shows EF 70% LV systolic function normal, trivial MR TR and eccentric AR. ID consult reviewed. Recommended if no answer found or not improving over the next 1 to [address] abdomen pelvis with contrast and bone marrow biopsy. 10/30: Incentive spirometry and Pep For bronchopulmonary hygiene. Acidophilus added for possible antibiotic related loose bowel movement. No fever last night. Furosemide 40 mg IV 1 dose given. WBC count improving. Patient still is pancytopenic. Monitor CBC 10/31: Hypoxia worsened on high flow oxygen. Patient agreeable for Airvo. Cultures reviewed. Blood cultures negative for more than 48 hours. EBV CMV pending. No fever in last 48 hours. Vancomycin discontinued, continue m eropenem as recommended by ID. ID consult reviewed 11/01: Airvo 65% FiO2, patient is being taken for bronchoscopy. Patient continued to be hypoxic on high FiO2 with bilateral crepitations. Cultures so far negative. Continue to be pancytopenic. 2. Acute hypoxic respiratory failure: Patient on high flow oxygen and Airvo. 3. CKD stage IIIb: Creatinine 0.85 increasing bicarb, low sodium due to Lasix. Lasix on hold. 4. Diabetes mellitus type 2: Patient has insulin pump. Creatinine is stable. Glucose 88 in the morning am. Lantus discontinued. On sliding scale. Acceptable glucose level. Patient had low glucose on 10/29. 5. hypothyroidism Continue Synthroid. 6. Stage IV breast cancer S/P left breast mastectomy, currently on Ibrance. Follows with Dr. Stanford. Continue anastrozole. 7. Dyslipidemia Continue statin. 8. Hypokalemia: Resolved. Continue monitoring BMP. DVT prophylaxis - SCD's, chemoprophylaxis not indicated due to thrombocytopenia. Total time of the visit including total time spent in counseling or coordination of care, (more than 50% of the total time, spent in obtaining medical information from nurses and other ancillary care providers,explaining to the patient about labs, imaging, diagnosis and management), discussion with co nsultants, review of labs and imaging is 40 minutes. I spent 25 minutes and SUSANA Malone spent 15 minutes. Charges/Coding Visit Charges Inpatient E&M: 87184 [facility] Hosp L3
[2021-11-01 08:18] LABS: Hematocrit 21.5 % (37-47); Hemoglobin 7.4 g/dL (12.0-15.0); Mean Corp Hgb Conc 34.4 g/dL (32-36); Mean Corpuscular Hgb 36.1 pg (27.0-32.0); Mean Corpuscular Volume 104.9 fL (81-99); Mean Platelet Vol. 12.4 fl (6.2-12.0); POSITIVE COUNT YES; POSITIVE DIFFERENTIAL YES; POSITIVE MORPHOLOGY YES; Platelet Count 54 K/mm3 (150-450); RBC Distribution Width CV 13.6 % (11.6-14.6); RBC Distribution Width SD 52.1 fl (35.1-43.9); Red Blood Count 2.05 M/mm3 (4.2-5.4)
[2021-11-01 08:19] LABS: Differential Indicated MANUAL DIFF
[2021-11-01 08:33] LABS: ALB/GLOB Ratio 0.4 RATIO (0.9-2.4); AST(SGOT) 74 U/L (15-37); Alanine Aminotransfer ALT/SGPT 55 U/L (13-56); Albumin, Serum 1.6 g/dL (3.2-5.0); Alkaline Phosphatase 79 U/L (45-117); Anion Gap 5 (5-15); BUN 28 mg/dL (7-18); BUN/Creat Ratio 25.7 RATIO (10-20); Calcium,Total 9.3 mg/dL (8.5-10.1); Chloride 92 mmol/L (98-107); Creatinine, Serum 1.09 mg/dL (0.55-1.02); EST Glomerular Filtration Rate 52 mL/min (>60); Est Glom Filt Rate - Afr Amer 63 mL/min (>60); Estimated Creatinine Clearance 43.06 ml/min; Globulin 3.6 g/dL (2.2-4.2); Glucose 239 mg/dL (74-106); Potassium 4.5 mmol/L (3.5-5.1); Protein, Total 5.2 g/dL (6.4-8.2); Sodium Level 132 mmol/L (136-145)
[2021-11-01 08:51] LABS: Eosinophil 2 % (0-5); Lymphocyte 13 % (19-41); Metamyelocyte 2 % (0-1); Monocyte 1 % (0-10); Neutrophil-Band 6 % (0-5); Neutrophil-Segmented 76 % (47-70); Total Cells Counted 100 (MANUAL DIFF)
[2021-11-01 08:52] LABS: Hypochromasia RARE; Macrocytosis 1+; Platelet Estimate MKD DEC (ADEQ); Toxic Granulation 1+
[2021-11-01 08:53] LABS: Absolute Lymphocyte Count 0.52 X10^3/uL (0.83-4.51); Absolute Neutrophil Count 3.1 X10^3/uL (2.0-7.7); Lymphocyte # 0.52 X10^3/ul (0.83-4.51); Neutrophil # 3.12 X10^3/uL (2.7-7.7)
[2021-11-01] MEDS: Lidocaine 2% Jelly 1 APPLIC Tube (10:27)
[2021-11-01] MEDS: Lidocaine 2% (5ml sdv) 5 ML VIAL.MPF (10:27)
--- NOTE | 2021-11-01 10:50 | OP.BRONCH_ITS ---
Patient Name: Krystina Cisneros Procedure Date: 11/01/2021 10:07 AM Date of : 1945 Age: 76 Procedure: Bronchoscopy Indications: Acute respiratory failure Providers: Michoacano oDnato MD Medicines: See the Anesthesia note for documentation of the administered medications Complications: No immediate complications Procedure: Pre-Anesthesia Assessment: - A History and Physical has been performed. Patient meds and allergies have been reviewed. The risks and benefits of the procedure and the sedation options and risks were discussed with the patient. All questions were answered and informed consent was obtained. Patient identification and proposed procedure were verified prior to the procedure by the physician and the nurse in the procedure room. Mental Status Examination: alert and oriented. Airway Examination: normal oropharyngeal airway. Respiratory Examination: poor air movement. CV Examination: normal. ASA Grade Assessment: III - A patient with severe systemic disease. After reviewing the risks and benefits, the patient was deemed in satisfactory condition to undergo the procedure. The anesthesia plan was to use general anesthesia. Immediately prior to administration of medications, the patient was re-assessed for adequacy to receive sedatives. The heart rate, respiratory rate, oxygen saturations, blood pressure, adequacy of pulmonary ventilation, and response to care were monitored throughout the procedure. The physical status of the patient was re-assessed after the procedure. After I obtained informed consent, the scope was passed under direct vision. Throughout the procedure, the patient's blood pressure, pulse, and oxygen saturations were monitored continuously. The bronchoscope was introduced through the mouth, via laryngeal mask airway and advanced to the tracheobronchial tree. The procedure was accomplished without difficulty. The patient tolerated the procedure well. Findings: The laryngeal mask airway is in good position. The vocal cords appear normal. The subglottic space is normal. The trachea is of normal caliber. The vin is sharp. The tracheobronchial tree was examined to at least the first subsegmental level. There are no endobronchial lesions, and no secretions. Bilateral Lung Abnormalities: Erythema was found throughout the tracheobronchial tree. Bronchoalveolar lavage was performed in the lingula of the lung and sent for cell count, bacterial culture, viral smears & culture, and fungal & AFB analysis and cytology. 60 mL of fluid were instilled. 20 mL were returned. The return was cloudy. There were no mucoid plugs in the return fluid. Bronchoalveolar lavage was performed in the right middle lobe of the lung and sent for cell count, bacterial culture, viral smears & culture, and fungal & AFB analysis and cytology. 80 mL of fluid were instilled. 30 mL were returned. The return was blood-tinged and cloudy. There were no mucoid plugs in the return fluid. Impression: - Acute respiratory failure - The airway examination was normal. - Erythema was present throughout the tracheobronchial tree. - Bronchoalveolar lavage was performed in the lingula. - Bronchoalveolar lavage was performed in the right middle lobe. Recommendation: - Await BAL results. Procedure Code(s): --- Professional --- 49796, Bronchoscopy, rigid or flexible, including fluoroscopic guidance, when performed; with bronchial alveolar lavage 97035, Bronchoscopy, rigid or flexible, including fluoroscopic guidance, when performed; with bronchial alveolar lavage Diagnosis Code(s): --- Professional --- J96.00, Acute respiratory failure, unspecified whether with hypoxia or hypercapnia R09.89, Other specified symptoms and signs involving the circulatory and respiratory systems CPT copyright 2017 [employer]. All rights reserved. The codes documented in this report are preliminary and upon mechanical expert review may be revised to meet current compliance requirements. DO Michoacano Tracy MD 11/01/2021 10:50:35 AM This report has been signed electronically. Number of Addenda: 0 Note Initiated On: 11/01/2021 10:07 AM
[2021-11-01 11:09] LABS: Cytology, Body Fluid / CSF SEE PATHOLOGY REPORT
[2021-11-01 11:11] LABS: Cytology, Body Fluid / CSF SEE PATHOLOGY REPORT
[2021-11-01 12:14] LABS: Body Fluid Mononuclear WBC # 0.211 10^3/uL; Body Fluid Mononuclear WBC % 49.8 %; Body Fluid Polynuclear WBC # 0.213 10^3/uL; Body Fluid Polynuclear WBC % 50.2 %; Body Fluid Total Cells Counted 0.453 10^3/ul; Red Cell Count/Body Fluid 0.005 10^6/ul; White Blood Count/Body Fluid 0.424 10^3/uL
[2021-11-01 12:19] LABS: Appearance/Body Fluid SL CLDY; Color/Body Fluid PINK
[2021-11-01 12:27] LABS: Appearance/Body Fluid SL CLDY; Color/Body Fluid PINK; Source- Body Fluid BRONCHIAL LAVAGE
[2021-11-01 12:29] LABS: Red Cell Count/Body Fluid 955 /mm3; White Blood Count/Body Fluid 40 /mm3
[2021-11-01 12:32] LABS: Body Fluid QC Type(s) BF2Q
[2021-11-01 12:42] LABS: Lymphocytes 20 %; Neutrophil (Segs) 78 %; Other Cell Type/BF 2 %
--- NOTE | 2021-11-01 12:51 | NURSING ---
Primary RN informed of ICU3 per boilermaking supervisor.
[2021-11-01 13:28] LABS: Body Fluid QC Type(s) BF2Q; Lymphocytes 13 %; Neutrophil (Segs) 87 %
[2021-11-01] MEDS: Ranolazine 500 MG Tablet PO (13:58)
[2021-11-01] MEDS: TBO-FILGRASTIM 300 MCG/0.5 ML ML SC (13:58)
[2021-11-01] MEDS: Na Biphos/Potassium Phosphate PACKET 1 PACKET PO ×2 (13:58→20:59)
[2021-11-01] MEDS: Anastrozole 1 MG TABLET PO (13:59)
[2021-11-01] MEDS: Metoprolol(XL)Succ 100 MG Tablet PO (13:59)
[2021-11-01 14:04] LABS: Source- Body Fluid BRONCHIAL LAVAGE
--- NOTE | 2021-11-01 17:54 | NURSING ---
Patient blood sugar is 189 per her continuous glucose sensor. Patient administered 5.1 units insulin via her insulin pump. Dinner tray in front of patient.
--- NOTE | 2021-11-01 20:57 | NURSING ---
Blood glucose 242 per pt's sensor. Pt gave bolus of 1.4 u insulin via home insulin pump.
[2021-11-01] MEDS: Atorvastatin Calcium 10 MG Tablet 5 MG PO (20:59)
[2021-11-02] VITALS (32 sets, daily range): BP systolic 110–151; BP diastolic 48–92; PULSE 60–81; RESP 14–20; TEMP 36.3–36.8; O2SAT 91–100
[2021-11-02 04:05] LABS: Anion Gap 7 (5-15); BUN 32 mg/dL (7-18); BUN/Creat Ratio 29.4 RATIO (10-20); Chloride 93 mmol/L (98-107); Creatinine, Serum 1.09 mg/dL (0.55-1.02); EST Glomerular Filtration Rate 52 mL/min (>60); Est Glom Filt Rate - Afr Amer 63 mL/min (>60); Estimated Creatinine Clearance 43.06 ml/min; Glucose 271 mg/dL (74-106); Potassium 4.6 mmol/L (3.5-5.1); Sodium Level 132 mmol/L (136-145)
[2021-11-02 04:28] LABS: Hemoglobin 7.7 g/dL (12.0-15.0); Mean Corpuscular Hgb 36.5 pg (27.0-32.0); Mean Corpuscular Volume 104.3 fL (81-99); Mean Platelet Vol. 12.8 fl (6.2-12.0); POSITIVE COUNT YES; POSITIVE DIFFERENTIAL YES; POSITIVE MORPHOLOGY YES; Platelet Count 62 K/mm3 (150-450); RBC Distribution Width CV 13.5 % (11.6-14.6); RBC Distribution Width SD 51.5 fl (35.1-43.9); Red Blood Count 2.11 M/mm3 (4.2-5.4); White Blood Count 5.7 K/mm3 (4.4-11.0)
[2021-11-02 04:35] LABS: Differential Indicated MANUAL DIFF
[2021-11-02 05:11] LABS: Neutrophil-Band 13 % (0-5); Neutrophil-Segmented 69 % (47-70); Total Cells Counted 100 (MANUAL DIFF)
[2021-11-02 05:14] LABS: Lymphocyte 8 % (19-41); Metamyelocyte 3 % (0-1); Monocyte 7 % (0-10)
[2021-11-02 05:16] LABS: Neutrophil # 4.82 X10^3/uL (2.7-7.7)
[2021-11-02 05:17] LABS: Absolute Lymphocyte Count 0.45 X10^3/uL (0.83-4.51); Absolute Neutrophil Count 4.8 X10^3/uL (2.0-7.7); Lymphocyte # 0.45 X10^3/ul (0.83-4.51); Toxic Granulation 1+
[2021-11-02 05:18] LABS: Platelet Estimate MOD DEC (ADEQ)
[2021-11-02 05:19] LABS: Polychromasia RARE; Red Cell Morphology N CYTIC NORMAL (NORM C&C)
[2021-11-02] MEDS: Levothyroxine 25 MCG TABLET PO (05:53)
[2021-11-02] MEDS: Na Biphos/Potassium Phosphate PACKET 1 PACKET PO ×3 (05:54→21:35)
--- NOTE | 2021-11-02 06:07 | PN.CC_ITS ---
Assessment & Plan Assessment/Plan (1) Neutropenic fever: PLAN: RECOMMENDATIONS: 1. Continue to wean FiO2 as tolerated to maintain oxygen saturations at or above 90%. 2. Continue antimicrobials per ID recommendations. 3. Await CMV/EBV serologies. 4. Continue Granix. 5. Continue to monitor blood counts daily. Transfuse if hemoglobin drops below 7 g/dL. 6. If the patient's bronchoscopy work-up remains negative, may need to consider initiation of steroids for medication induced pneumonitis. IMPRESSIONS: 1. Neutropenic fever with associated hypoxia The patient has evidence radiographically of uncomfortable and groundglass opacities, concerning for an underlying pulmonary infectious process. However, I cannot discount the possibility of superimposed pulmonary edema either. The patient has been diuresed over the last several days without any significant improvement in her respiratory status. The patient will remain on broad- spectrum antimicrobials per ID recommendations. CMV and EBV work-up are currently pending. Although initially of lower clinical suspicion for Ibrance related pneumonitis, if the patient does not begin to improve and bronchoscopy work-up remains negative, will need to consider corticosteroid use. Continue Granix. Continue to wean oxygen as tolerated for saturations greater than 90%. 2. Acute on chronic kidney disease Resolved. Most likely prerenal in etiology. The patient did initially receive supplemental IV fluid hydration. Continue to monitor urine output for now. 3. Pancytopenia Related to use of Ibrance coupled with underlying infection. Continue to monitor counts daily and continue Granix. No indication for transfusion of blood products at the current time. Transfuse if hemoglobin drops below 7 g/dL. 4. History of breast CA/hypothyroidism/hyperlipidemia Complicates care, management, recovery and prognosis. Continue home medications as indicated. This note was generated with [employer] dictation software. It may contain incorrect words, spelling, and punctuation that were not noted in checking the note before signing. Subjective Subjective The patient was seen and examined at the bedside this morning. Events from the last 24 hours have been reviewed. The patient is currently afebrile, hemodynami shashi stable and maintaining appropriate oxygen saturations on Airvo heated high flow with an FiO2 requirement of 60%. Despite the fact that the patient had been on heated high flow oxygen for several days, [facility] nursing staff became uncomfortable caring for the patient after her bronchoscopy and she was subsequently transferred to the ICU for further management yesterday. She is currently documented to be overall net +2.4 L for the hospitalization. Bronchoscopy with BAL to the lingula and right middle lobe was performed yesterday. Blood counts remain stable this morning. Despite her oxygen requirement, the patient continues to endorse feeling better. Objective Data Objective Data The patient's most recent lab work, culture data and imaging studies have all been personally reviewed. Surface echocardiogram from January 2020 demonstrated normal LV size and function with an ejection fraction of 55%. Infectious work- up has been unrevealing to date. Vital Signs: Vital Signs Temp Pulse Resp BP Pulse Ox 97.5 F L 63 16 138/60 H 99 11/02/21 04:00 11/02/21 05:00 11/02/21 05:00 11/02/21 05:00 11/02/21 05:00 Oxygen Flow Rate (L/min) 60 Oxygen Delivery Method Airvo Weight: 63.1 kg Body Mass Index (BMI) 28.0 Intake & Output: Intake and Output for Last 24 Hours 10/31/21 11/01/21 11/02/21 23:59 23:59 23:59 Intake Total 1629 / 1629 668.75 / 668.75 Output Total 1100 / 1100 1050 / 1050 Balance 529 / 529 -381.25 / -381.25 Lab / Micro Data Attestation: I reviewed the patient's lab results. Result Diagrams: 11/02/21 04:20 11/02/21 03:40 Labs: Laboratory Results - last 24 hr 11/01/21 08:00: WBC 4.0 L, RBC 2.05 L, Hgb 7.4 L, Hct 21.5 L, MCV 104.9 H, MCH 36.1 H, MCHC 34.4, RDW Std Deviation 52.1 H, RDW Coeff of Alex 13.6, Plt Count 54 L, MPV 12.4 H, Neut % (Auto) Not Reportable, Absolute Neuts (auto) 3.1, Absolute Lymphs (auto) 0.52 L, Total Counted 100, Neutrophils % (Manual) 76 H, Band Neutrophils % 6 H, Lymphocytes % (Manual) 13 L, Monocytes % (Manual) 1, Eosinophils % (Manual) 2, Metamyelocytes % 2 H, Diff Path Review May foll, Toxic Granulation 1+, Platelet Estimate MKD DEC, Hypochromasia RARE, Macrocytosis 1+ 11/01/21 08:00: Sodium 132 L, Potassium 4.5, Chloride 92 L, Carbon Dioxide 35.0 H, Anion Gap 5, BUN 28 H, Creatinine 1.09 H, Estim Creat Clear Calc 43.06, Est GFR (MDRD) Af Amer 63, Est GFR (MDRD) Non-Af 52 L, BUN/Creatinine Ratio 25.7 H, Glucose 239 H, Calcium 9.3, Total Bilirubin 0.70, AST 74 H, ALT 55, Alkaline Phosphatase 79, Total Protein 5.2 L, Albumin 1.6 L, Globulin 3.6, Albumin/Globulin Ratio 0.4 L 11/01/21 10:30: Fluid Source BRONCHIAL LAVAGE, Fluid Color PINK, Fluid Appearance SL CLDY, Fluid WBC 40, Fluid RBC 955, Fluid Tot Cell Count TNP, Fluid Neutrophils 78, Fluid Lymphocytes 20, Fluid Other Cells 2, Fl Pathologist Comment May follow, Fluid Comment 2 Not Reportable 11/01/21 10:30: Fluid Source BRONCHIAL LAVAGE, Fluid Color PINK, Fluid Appearance SL CLDY, Fluid WBC 0.424, Fluid RBC 0.005, Fluid Tot Cell Count 0.453 H, Fld Polynuclear WBCs # 0.213, Fld Polynuclear WBCs % 50.2, Fluid Mononuclear WBCs 0.211, Fld Mononuclear WBCs % 49.8, Fluid Neutrophils 87, Fluid Lymphocytes 13, Fl Pathologist Comment May follow, Fluid Comment 2 NATIONAL ACCOUNT DIRECTOR 11/02/21 03:40: WBC Cancelled, Corrected WBC Cancelled, RBC Cancelled, Hgb Cancelled, Hct Cancelled, MCV Cancelled, MCH Cancelled, MCHC Cancelled, RDW Std Deviation Cancelled, RDW Coeff of Alex Cancelled, Plt Count Cancelled, MPV Cancelled, Immature Gran % (Auto) Cancelled, Neut % (Auto) Cancelled, Lymph % (A uto) Cancelled, Butts % (Auto) Cancelled, Eos % (Auto) Cancelled, Baso % (Auto) Cancelled, Absolute Neuts (auto) Cancelled, Absolute Lymphs (auto) Cancelled, Total Counted Cancelled, Neutrophils % (Manual) Cancelled, Band Neutrophils % Cancelled, Lymphocytes % (Manual) Cancelled, Monocytes % (Manual) Cancelled, Eosinophils % (Manual) Cancelled, Basophils % (Manual) Cancelled, Metamyelocytes % Cancelled, Myelocytes % Cancelled, Promyelocytes % Cancelled, Blast Cells % Cancelled, Plasma Cell % (Manual) Cancelled, Other Cells % Cancelled, Nucleated RBC % Cancelled, Nucleated RBCs/100 WBC Cancelled, Differential Comment Cancelled, Diff Path Review Cancelled, Hypersegmented Neuts Cancelled, Atypical Lymphocytes Cancelled, Reactive Lymphocytes Cancelled, Smudge Cells Cancelled, Toxic Granulation Cancelled, Toxic Vacuolation Cancelled, Dohle Bodies Cancelled, Jenelle Rods Cancelled, Platelet Estimate Cancelled, Plt Morphology Comment Cancelled, RBC Morphology Cancelled, Polychromasia Cancelled, H ypochromasia Cancelled, Poikilocytosis Cancelled, Basophilic Stippling Cancelled, Anisocytosis Cancelled, Microcytosis Cancelled, Macrocytosis Cancelled, Spherocytes Cancelled, Sickle Cells Cancelled, Target Cells Cancelled, Tear Drop Cells Cancelled, Ovalocytes Cancelled, Stomatocytes Cancelled, [place] Bodies Cancelled, [place] Cells Cancelled, Bite Cells Cancelled, Crenated Cell Cancelled, Acanthocytes (Spur) Cancelled, Rouleaux Cancelled, Schistocytes Cancelled 11/02/21 03:40: Sodium 132 L, Potassium 4.6, Chloride 93 L, Carbon Dioxide 32.0, Anion Gap 7, BUN 32 H, Creatinine 1.09 H, Estim Creat Clear Calc 43.06, Est GFR (MDRD) Af Amer 63, Est GFR (MDRD) Non-Af 52 L, BUN/Creatinine Ratio 29.4 H, Glucose 271 H, Calcium 10.0 11/02/21 04:20: WBC 5.7, RBC 2.11 L, Hgb 7.7 L, Hct 22.0 L, MCV 104.3 H, MCH 36.5 H, MCHC 35.0, RDW Std Deviation 51.5 H, RDW Coeff of Alex 13.5, Plt Count 62 L, MPV 12.8 H, Neut % (Auto) Not Reportable, Absolute Neuts (auto) 4.8, Absolute Lymphs (auto) 0.45 L, Total Counted 100, Neutrophils % (Manual) 69, Band Neutrophils % 13 H, Lymphocytes % (Manual) 8 L, Monocytes % (Manual) 7, Metamye locytes % 3 H, Diff Path Review May foll, Toxic Granulation 1+, Platelet Estimate MOD DEC, RBC Morphology N CYTIC, Polychromasia RARE Micro: Microbiology 10/27/21 14:29 Blood Culture (Wb) - Right Wrist Blood Culture - Final No growth in 5 days. 11/01/21 10:30 Bronchial Lavage - Right Middle Lobe Gram Stain - Final 11/01/21 10:30 Bronchial Lavage - Other Gram Stain - Final 10/25/21 12:05 Blood Culture (Wb) - Right Wrist Blood Culture - Final No growth in 5 days. 10/25/21 11:31 Blood Culture (Wb) - Anticubital Right Blood Culture - Final No growth in 5 days. 10/27/21 20:45 Blood Culture (Wb) - Right Wrist Blood Culture - Preliminary No growth in 48 hours. 10/28/21 08:45 Mucosa - Nose Respiratory Panel (PCR) - Final 10/25/21 12:54 Urine Catheter - Catheter Urine Culture - Final Culture exhibits no growth. 10/25/21 13:07 Nasal Secretion SARS-CoV-2 & FLU Antigen (Rapid) - Final Physical Exam Const alert Constitutional Narrative: Remains on Airvo heated high flow nasal cannula. General Appearance: cooperative and ill appearing HEENT normocephalic, head/scalp atraumatic and moist oral mucous membranes Eyes PERRL and conjunctivae normal Neck supple General: trachea midline Chest inspection of chest normal Resp no use of accessory muscles Effort and Inspection: able to speak in complete sentences Auscultation: diminished lung sounds Cardio regular rate and regular rhythm GI normal to inspection, nondistended, normoactive bowel sounds Extremity no clubbing, cyanosis or edema Skin no rashes or lesions noted Neuro CN's II-XII intact bilaterally, moves all extremities and no focal motor deficits Psych Mood & Affect: flat affect Charges/Coding Visit Charges Inpatient E&M: 09322 Subs Hosp L3
--- NOTE | 2021-11-02 08:07 | PCM.PN.HOSP ---
Subjective Subjective Patient on 55 to 60% FiO2, afebrile. Objective Data Objective Data Vital Signs: Vital Signs Temp Pulse Resp BP Pulse Ox 97.5 F L 66 17 142/76 H 97 11/02/21 04:00 11/02/21 07:21 11/02/21 07:00 11/02/21 07:00 11/02/21 07:00 Oxygen Flow Rate (L/min) 60 Oxygen Delivery Method Airvo Weight: 140 lb 10.479 oz Body Mass Index (BMI) 28.0 Intake & Output: Intake and Output for Last 24 Hours 10/31/21 11/01/21 11/02/21 23:59 23:59 23:59 Intake Total 1629 / 1629 668.75 / 668.75 200 / 200 Output Total 1100 / 1100 1050 / 1050 150 / 150 Balance 529 / 529 -381.25 / -381.25 50 / 50 Lab / Micro Data Result Diagrams: 11/02/21 04:20 11/02/21 03:40 Labs: Laboratory Results - last 24 hr 11/01/21 08:00: WBC 4.0 L, RBC 2.05 L, Hgb 7.4 L, Hct 21.5 L, MCV 104.9 H, MCH 36.1 H, MCHC 34.4, RDW Std Deviation 52.1 H, RDW Coeff of Alex 13.6, Plt Count 54 L, MPV 12.4 H, Neut % (Auto) Not Reportable, Absolute Neuts (auto) 3.1, Absolute Lymphs (auto) 0.52 L, Total Counted 100, Neutrophils % (Manual) 76 H, Band Neutrophils % 6 H, Lymphocytes % (Manual) 13 L, Monocytes % (Manual) 1, Eosinophils % (Manual) 2, Metamyelocytes % 2 H, Diff Path Review May foll, Toxic Granulation 1+, Platelet Estimate MKD DEC, Hypochromasia RARE, Macrocytosis 1+ 11/01/21 08:00: Sodium 132 L, Potassium 4.5, Chloride 92 L, Carbon Dioxide 35.0 H, Anion Gap 5, BUN 28 H, Creatinine 1.09 H, Estim Creat Clear Calc 43.06, Est GFR (MDRD) Af Amer 63, Est GFR (MDRD) Non-Af 52 L, BUN/Creatinine Ratio 25.7 H, Glucose 239 H, Calcium 9.3, Total Bilirubin 0.70, AST 74 H, ALT 55, Alkaline Phosphatase 79, Total Protein 5.2 L, Albumin 1.6 L, Globulin 3.6, Albumin/Globulin Ratio 0.4 L 11/01/21 10:30: Fluid Source BRONCHIAL LAVAGE, Fluid Color PINK, Fluid Appearance SL CLDY, Fluid WBC 40, Fluid RBC 955, Fluid Tot Cell Count TNP, Fluid Neutrophils 78, Fluid Lymphocytes 20, Fluid Other Cells 2, Fl Pathologist Comment May follow, Fluid Comment 2 Not Reportable 11/01/21 10:30: Fluid Source BRONCHIAL LAVAGE, Fluid Color PINK, Fluid Appearance SL CLDY, Fluid WBC 0.424, Fluid RBC 0.005, Fluid Tot Cell Count 0.453 H, Fld Polynuclear WBCs # 0.213, Fld Polynuclear WBCs % 50.2, Fluid Mononuclear WBCs 0.211, Fld Mononuclear WBCs % 49.8, Fluid Neutrophils 87, Fluid Lymphocytes 13, Fl Pathologist Comment May follow, Fluid Comment 2 WINDSCREEN FITTER 11/02/21 03:40: Sodium 132 L, Potassium 4.6, Chloride 93 L, Carbon Dioxide 32.0, Anion Gap 7, BUN 32 H, Creatinine 1.09 H, Estim Creat Clear Calc 43.06, Est GFR (MDRD) Af Amer 63, Est GFR (MDRD) Non-Af 52 L, BUN/Creatinine Ratio 29.4 H, Glucose 271 H, Calcium 10.0 11/02/21 04:20: WBC 5.7, RBC 2.11 L, Hgb 7.7 L, Hct 22.0 L, MCV 104.3 H, MCH 36.5 H, MCHC 35.0, RDW Std Deviation 51.5 H, RDW Coeff of Alex 13.5, Plt Count 62 L, MPV 12.8 H, Neut % (Auto) Not Reportable, Absolute Neuts (auto) 4.8, Absolute Lymphs (auto) 0.45 L, Total Counted 100, Neutrophils % (Manual) 69, Band Neutrophils % 13 H, Lymphocytes % (Manual) 8 L, Monocytes % (Manual) 7, Metamyelocytes % 3 H, Diff Path Review May foll, Toxic Granulation 1+, Platelet Estimate MOD DEC, RBC Morphology N CYTIC, Polychromasia RARE Micro: Microbiology 10/27/21 20:45 Blood Culture (Wb) - Right Wrist Blood Culture - Final No growth in 5 days. 10/27/21 14:29 Blood Culture (Wb) - Right Wrist Blood Culture - Final No growth in 5 days. 11/01/21 10:30 Bronchial Lavage - Right Middle Lobe Gram Stain - Final 11/01/21 10:30 Bronchial Lavage - Other Gram Stain - Final 10/25/21 12:05 Blood Culture (Wb) - Right Wrist Blood Culture - Final No growth in 5 days. 10/25/21 11:31 Blood Culture (Wb) - Anticubital Right Blood Culture - Final No growth in 5 days. 10/28/21 08:45 Mucosa - Nose Respiratory Panel (PCR) - Final 10/25/21 12:54 Urine Catheter - Catheter Urine Culture - Final Culture exhibits no growth. 10/25/21 13:07 Nasal Secretion SARS-CoV-2 & FLU Antigen (Rapid) - Final Physical Exam Narrative Seen and examined Patient had last bowel movement yesterday, soft. On incentive spirometry and Pep. Temperature profile reviewed. Last fever 103.1 Fahrenheit on 10/28 after that she had low-grade temperature T-max 99.9 Fahrenheit on 10/30. Discussed with the nursing staff No tachycardia, hypotension General: Alert, Oriented x3, Cooperative HEENT: Atraumatic, PERRLA, EOMI, Normocephalic Oral: No Gingival or Mucosal Lesions/ Ulcerations Neck: Supple, No JVD, Negative Carotid Bruits Lungs: Air entry diminished in bilateral lung bases. Hypoxic on Airvo. Bilateral crepitations Cardiovascular: Regular rate, Regular Rhythm, Normal S1, Normal S2, No murmurs Abdomen: Bowel Sounds Present, Soft, Non Tender, Non-Distended : No renal angle tenderness. No suprapubic tenderness. Extremities: No edema, Capillary Refill Less than 3 Seconds Skin: No rashes, No breakdown Musculoskeletal: No Tenderness to Palpation of Joints or Extremities Neurological: Cranial nerves II-XII grossly intact, DTR 2+/4 and Symmetrical, Neuro grossly intact Psych/Mental Status: Flat affect Assessment & Plan Assessment/Plan (1) Neutropenic fever: PLAN: 1. Neutropenic fever, of unclear source: The patient is admitted on 11/11 for fever for last 3 days prior to admission. 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 The patient still having fever. On meropenem. Vancomycin started on 10/28. ID consult. Patient had a scheduled oncology appointment Dr. Stanford but was found to be leukopenic and severe thrombocytopenic. Patient has lactic acidosis. Cultures are negative so far. Respiratory panel negative. ID consult reviewed and recommended oncology evaluation. EBV and CMV ordered. Patient had loose bowel movements. 10/29: Patient still having intermittent fever. On Vanco and meropenem. IV Lasix 40 mg given this morning. On high flow oxygen Airvo. Oncologist consult reviewed. Granix 3 mg subcu daily for neutropenia. Jairon is on hold. Continue anastrozole 1 mg once daily. 2D echo shows EF 70% LV systolic function normal, trivial MR TR and eccentric AR. ID consult reviewed. Recommended if no answer found or not improving over the next 1 to [address] abdomen pelvis with contrast and bone marrow biopsy. 10/30: Incentive spirometry and Pep For bronchopulmonary hygiene. Acidophilus added for possible antibiotic related loose bowel movement. No fever last night. Furosemide 40 mg IV 1 dose given. WBC count improving. Patient still is pancytopenic. Monitor CBC 10/31: Hypoxia worsened on high flow oxygen. Patient agreeable for Airvo. Cultures reviewed. Blood cultures negative for more than 48 hours. EBV CMV pending. No fever in last 48 hours. Vancomycin discontinued, continue meropenem as recommended by ID. ID consult reviewed 11/01: Airvo 65% FiO2, patient is being taken for bronchoscopy. Patient continued to be hypoxic on high FiO2 with bilateral crepitations. Cultures so far negative. Continue to be pancytopenic. 11/02: Patient had bronchoscopy yesterday. BAL preliminary gram stain shows 1-2+ mixed gram-positive organism. Enteric bacteriology panel negative. 2. Acute hypoxic respiratory failure: Patient on high flow oxygen and Airvo. 3. CKD stage IIIb: Creatinine 0.85 increasing bicarb, low sodium due to Lasix. Lasix on hold. 4. Diabetes mellitus type 2: Patient has insulin pump. Creatinine is stable. Acceptable glucose level. 11/02: Patient has insulin pump therefore sliding scale discontinued 5. hypothyroidism Continue Synthroid. 6. Stage IV breast cancer S/P left breast mastectomy, currently on Ibrance. Follows with Dr. Stanford. Continue anastrozole. 7. Dyslipidemia Continue statin. 8. Hypokalemia: Resolved. Continue monitoring BMP. DVT prophylaxis - SCD's, chemoprophylaxis not indicated due to thrombocytopenia. Total time of the visit including total time spent in counseling or coordination of care, (more than 50% of the total time, spent in obtaining medical information from nurses and other ancillary care providers,explaining to the patient about labs, imaging, diagnosis and management), discussion with consultants, review of labs and imaging is 40 minutes. I spent 25 minutes and SUSANA Malone spent 15 minutes. Charges/Coding Visit Charges Inpatient E&M: 29624 Subs Hosp L3
--- NOTE | 2021-11-02 08:12 | CPS ---
started by nursing
[2021-11-02] MEDS: Ranolazine 500 MG Tablet PO (09:31)
[2021-11-02] MEDS: Metoprolol(XL)Succ 100 MG Tablet PO (09:32)
[2021-11-02] MEDS: Anastrozole 1 MG TABLET PO (09:33)
[2021-11-02] MEDS: TBO-FILGRASTIM 300 MCG/0.5 ML ML SC (10:00)
--- NOTE | 2021-11-02 16:21 | NURSING ---
up to [facility], O2 sats dropped to 82 on airvo 60L 55%, increased back to 60L 60% and recovered well. O2 sats up to 92.
[2021-11-02] MEDS: Menthol/Lanolin/Calamine/Znox 113 GM Tube 1 APPLIC TOPICAL ×2 (16:25→21:36)
[2021-11-02 20:11] LABS: Bedside Glucose 328 mg/dL (74-106)
[2021-11-02] MEDS: Atorvastatin Calcium 10 MG Tablet 5 MG PO (21:36)
[2021-11-03] VITALS (21 sets, daily range): BP systolic 116–148; BP diastolic 49–71; PULSE 62–95; RESP 12–22; TEMP 36.4–36.6; O2SAT 91–99
[2021-11-03] MEDS: Na Biphos/Potassium Phosphate PACKET 1 PACKET PO (05:06)
[2021-11-03] MEDS: Levothyroxine 25 MCG TABLET PO (05:06)
--- NOTE | 2021-11-03 05:54 | PCM.PN.INT ---
Assessment & Plan Assessment/Plan (1) Neutropenic fever: PLAN: RECOMMENDATIONS: 1. Continue to wean FiO2 as tolerated to maintain oxygen saturations at or above 90%. 2. Resume antimicrobials until BAL cultures are finalized. 3. Await CMV/EBV serologies. 4. Continue Granix. 5. Continue to monitor blood counts daily. Transfuse if hemoglobin drops below 7 g/dL. 6. If the patient's bronchoscopy work-up remains negative, may need to consider initiation of steroids for medication induced pneumonitis. IMPRESSIONS: 1. Neutropenic fever with associated hypoxia The patient has evidence radiographically of uncomfortable and groundglass opacities, concerning for an underlying pulmonary infectious process. However, I cannot discount the possibility of superimposed pulmonary edema either. The patient was initially diuresed over several days, but developed a contraction alkalosis. Therefore, the diuretics were discontinued. Despite diuretic utilization, there was no significant improvement in her respiratory status. The patient has been treated with broad-spectrum antimicrobials per ID recommendations. CMV and EBV serologies are still pending. Although initially of lower clinical suspicion for Ibrance related pneumonitis, if the patient does not begin to improve and bronchoscopy work-up remains negative, will need to consider corticosteroid use. Continue Granix. Continue to wean oxygen as tolerated for saturations greater than 90%. 2. Acute on chronic kidney disease Resolved. Most likely prerenal in etiology. The patient did initially receive supplemental IV fluid hydration. Continue to monitor urine output for now. 3. Pancytopenia Related to use of Ibrance coupled with underlying infection. Continue to monitor counts daily and continue Granix. No indication for transfusion of blood products at the current time. Transfuse if hemoglobin drops below 7 g/dL. 4. History of breast CA/hypothyroidism/hyperlipidemia Complicates care, management, recovery and prognosis. Continue home medications as indicated. This note was generated with [employer] dictation software. It may contain incorrect words, spelling, and punctuation that were not noted in checking the note before signing. Subjective Subjective The patient was seen and examined at the bedside this morning. Events from the last 24 hours have been reviewed. The patient is currently afebrile, hemodynamically stable and maintaining appropriate oxygen saturations on Airvo with an FiO2 requirement of 50% and flow rate of 55 L/min. The patient is currently documented to be overall net +3 L for the hospitalization. Although the patient's antimicrobials completed yesterday after having received a limited course of vancomycin and treatment course of meropenem, given that the gram stain from the bronchoscopy is demonstrating mixed gram-positive organisms, will resume antibiotics until cultures are finalized. Blood counts remain stable. Objective Data Objective Data The patient's most recent lab work, culture data and imaging studies have all been personally reviewed. Surface echocardiogram from January 2020 demonstrated normal LV size and function with an ejection fraction of 55%. Infectious work-up has been unrevealing to date. Vital Signs: Vital Signs Temp Pulse Resp BP Pulse Ox 97.6 F L 65 14 135/59 H 96 11/03/21 05:00 11/03/21 05:00 11/03/21 05:00 11/03/21 05:00 11/03/21 05:00 Oxygen Flow Rate (L/min) 55 Oxygen Delivery Method Airvo Weight: 64.3 kg Body Mass Index (BMI) 28.0 Intake & Output: Intake and Output for Last 24 Hours 11/01/21 11/02/21 11/03/21 23:59 23:59 23:59 Intake Total 668.75 / 668.75 720 / 970 490 / 490 Output Total 1050 / 1050 150 / 150 400 / 400 Balance -381.25 / -381.25 570 / 820 90 / 90 Lab / Micro Data Attestation: I reviewed the patient's lab results. Result Diagrams: 11/03/21 05:00 11/03/21 05:00 Labs: Laboratory Results - last 24 hr 11/02/21 20:05: POC Glucose 328 H Micro: Microbiology 11/01/21 10:30 Bronchial Lavage - Right Middle Lobe Gram Stain - Final 11/01/21 10:30 Bronchial Lavage - Right Middle Lobe Respiratory Culture - Preliminary Mixed Gram Positive Organisms 11/01/21 10:30 Bronchial Lavage - Other Gram Stain - Final 11/01/21 10:30 Bronchial Lavage - Other Respiratory Culture - Preliminary Mixed Gram Positive Organisms 11/02/21 05:21 Stool Enteric Bacteriology - Final 10/27/21 20:45 Blood Culture (Wb) - Right Wrist Blood Culture - Final No growth in 5 days. 10/27/21 14:29 Blood Culture (Wb) - Right Wrist Blood Culture - Final No growth in 5 days. 10/25/21 12:05 Blood Culture (Wb) - Right Wrist Blood Culture - Final No growth in 5 days. 10/25/21 11:31 Blood Culture (Wb) - Anticubital Right Blood Culture - Final No growth in 5 days. 10/28/21 08:45 Mucosa - Nose Respiratory Panel (PCR) - Final 10/25/21 12:54 Urine Catheter - Catheter Urine Culture - Final Culture exhibits no growth. 10/25/21 13:07 Nasal Secretion SARS-CoV-2 & FLU Antigen (Rapid) - Final Physical Exam Const alert Constitutional Narrative: Remains on Airvo heated high flow nasal cannula. General Appearance: cooperative and ill appearing HEENT normocephalic, head/scalp atraumatic and moist oral mucous membranes Eyes PERRL and conjunctivae normal Neck supple General: trachea midline Chest inspection of chest normal Resp no use of accessory muscles Effort and Inspection: able to speak in complete sentences Auscultation: diminished lung sounds Cardio regular rate and regular rhythm GI normal to inspection, nondistended, normoactive bowel sounds Extremity no clubbing, cyanosis or edema Skin no rashes or lesions noted Neuro CN's II-XII intact bilaterally, moves all extremities and no focal motor deficits Psych Mood & Affect: flat affect Charges/Coding Visit Charges Inpatient E&M: 03631 Subs Hosp L3
[2021-11-03 06:06] LABS: Hematocrit 20.3 % (37-47); Hemoglobin 7.3 g/dL (12.0-15.0); Mean Corpuscular Hgb 37.2 pg (27.0-32.0); Mean Corpuscular Volume 103.6 fL (81-99); Mean Platelet Vol. 12.8 fl (6.2-12.0); POSITIVE COUNT YES; POSITIVE MORPHOLOGY YES; Platelet Count 81 K/mm3 (150-450); RBC Distribution Width CV 13.8 % (11.6-14.6); RBC Distribution Width SD 51.4 fl (35.1-43.9); Red Blood Count 1.96 M/mm3 (4.2-5.4)
[2021-11-03 06:07] LABS: Differential Indicated MANUAL DIFF
[2021-11-03 06:23] LABS: ALB/GLOB Ratio 0.5 RATIO (0.9-2.4); AST(SGOT) 34 U/L (15-37); Alanine Aminotransfer ALT/SGPT 59 U/L (13-56); Albumin, Serum 1.7 g/dL (3.2-5.0); Alkaline Phosphatase 128 U/L (45-117); Anion Gap 6 (5-15); BUN 41 mg/dL (7-18); BUN/Creat Ratio 31.3 RATIO (10-20); Calcium,Total 10.6 mg/dL (8.5-10.1); Chloride 92 mmol/L (98-107); Creatinine, Serum 1.31 mg/dL (0.55-1.02); EST Glomerular Filtration Rate 42 mL/min (>60); Est Glom Filt Rate - Afr Amer 51 mL/min (>60); Estimated Creatinine Clearance 36.51 ml/min; Globulin 3.5 g/dL (2.2-4.2); Glucose 343 mg/dL (74-106); Potassium 4.7 mmol/L (3.5-5.1); Protein, Total 5.2 g/dL (6.4-8.2); Sodium Level 132 mmol/L (136-145)
[2021-11-03 06:31] LABS: Lymphocyte 6 % (19-41); Metamyelocyte 2 % (0-1); Monocyte 9 % (0-10); Myelocyte 1 % (0-0); Neutrophil-Band 14 % (0-5); Neutrophil-Segmented 68 % (47-70); Platelet Estimate MOD DEC (ADEQ); Total Cells Counted 100 (MANUAL DIFF)
[2021-11-03 06:32] LABS: Absolute Neutrophil Count 8.2 X10^3/uL (2.0-7.7); Hypochromasia 1+; Neutrophil # 8.21 X10^3/uL (2.7-7.7); Red Cell Morphology N CYTIC NORMAL (NORM C&C)
--- NOTE | 2021-11-03 07:25 | PCM.PN.HOSP ---
Subjective Subjective Follow-up for acute hypoxic respiratory failure neutropenic fever. Objective Data Objective Data Vital Signs: Vital Signs Temp Pulse Resp BP Pulse Ox 97.6 F L 64 16 139/64 H 96 11/03/21 05:00 11/03/21 06:00 11/03/21 06:00 11/03/21 06:00 11/03/21 06:00 Oxygen Flow Rate (L/min) 55 Oxygen Delivery Method Airvo Weight: 141 lb 12.116 oz Body Mass Index (BMI) 28.0 Intake & Output: Intake and Output for Last 24 Hours 11/01/21 11/02/21 11/03/21 23:59 23:59 23:59 Intake Total 668.75 / 668.75 720 / 970 490 / 490 Output Total 1050 / 1050 150 / 150 400 / 400 Balance -381.25 / -381.25 570 / 820 90 / 90 Lab / Micro Data Result Diagrams: 11/03/21 05:00 11/03/21 05:00 Labs: Laboratory Results - last 24 hr 11/02/21 20:05: POC Glucose 328 H 11/03/21 05:00: WBC 10.0, RBC 1.96 L, Hgb 7.3 L, Hct 20.3 L, MCV 103.6 H, MCH 37.2 H, MCHC 36.0, RDW Std Deviation 51.4 H, RDW Coeff of Alex 13.8, Plt Count 81 L, MPV 12.8 H, Neut % (Auto) Not Reportable, Absolute Neuts (auto) 8.2 H, Absolute Lymphs (auto) 0.60 L, Total Counted 100, Neutrophils % (Manual) 68, Band Neutrophils % 14 H, Lymphocytes % (Manual) 6 L, Monocytes % (Manual) 9, Metamyelocytes % 2 H, Myelocytes % 1 H, Diff Path Review May , Platelet Estimate MOD DEC, RBC Morphology N CYTIC, Hypochromasia 1+ 11/03/21 05:00: Sodium 132 L, Potassium 4.7, Chloride 92 L, Carbon Dioxide 34.0 H, Anion Gap 6, BUN 41 H, Creatinine 1.31 H, Estim Creat Clear Calc 36.51, Est GFR (MDRD) Af Amer 51 L, Est GFR (MDRD) Non-Af 42 L, BUN/Creatinine Ratio 31.3 H, Glucose 343 H, Calcium 10.6 H, Total Bilirubin 0.60, AST 34, ALT 59 H, Alkaline Phosphatase 128 H, Total Protein 5.2 L, Albumin 1.7 L, Globulin 3.5, Albumin/Globulin Ratio 0.5 L Micro: Microbiology 11/01/21 10:30 Bronchial Lavage - Right Middle Lobe Gram Stain - Final 11/01/21 10:30 Bronchial Lavage - Right Middle Lobe Respiratory Culture - Preliminary Mixed Gram Positive Organisms 11/01/21 10:30 Bronchial Lavage - Other Gram Stain - Final 11/01/21 10:30 Bronchial Lavage - Other Respiratory Culture - Preliminary Mixed Gram Positive Organisms 11/02/21 05:21 Stool Enteric Bacteriology - Final 10/27/21 20:45 Blood Culture (Wb) - Right Wrist Blood Culture - Final No growth in 5 days. 10/27/21 14:29 Blood Culture (Wb) - Right Wrist Blood Culture - Final No growth in 5 days. 10/25/21 12:05 Blood Culture (Wb) - Right Wrist Blood Culture - Final No growth in 5 days. 10/25/21 11:31 Blood Culture (Wb) - Anticubital Right Blood Culture - Final No growth in 5 days. 10/28/21 08:45 Mucosa - Nose Respiratory Panel (PCR) - Final 10/25/21 12:54 Urine Catheter - Catheter Urine Culture - Final Culture exhibits no growth. 10/25/21 13:07 Nasal Secretion SARS-CoV-2 & FLU Antigen (Rapid) - Final Physical Exam Narrative Seen and examined On incentive spirometry and Pep. Temperature profile reviewed. Last fever 103.1 Fahrenheit on 10/28 after that she had low-grade temperature T-max 99.9 Fahrenheit on 10/30. Discussed with the nursing staff No tachycardia, hypotension General: Alert, Oriented x3, Cooperative HEENT: Atraumatic, PERRLA, EOMI, Normocephalic Oral: No Gingival or Mucosal Lesions/ Ulcerations Neck: Supple, No JVD, Negative Carotid Bruits Lungs: Air entry diminished in bilateral lung bases. Mild bilateral rhonchi. Cardiovascular: Regular rate, Regular Rhythm, Normal S1, Normal S2, No murmurs Abdomen: Bowel Sounds Present, Soft, Non Tender, Non-Distended : No renal angle tenderness. No suprapubic tenderness. Extremities: No edema, Capillary Refill Less than 3 Seconds Skin: No rashes, No breakdown Musculoskeletal: No Tenderness to Palpation of Joints or Extremities Neurological: Cranial nerves II-XII grossly intact, DTR 2+/4 and Symmetrical, Neuro grossly intact Psych/Mental Status: Flat affect Assessment & Plan Assessment/Plan (1) Neutropenic fever: PLAN: 1. Neutropenic fever, of unclear source: The patient is admitted on 11/11 for fever for last 3 days prior to admission. 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 The patient still having fever. On meropenem. Vancomycin started on 10/28. ID consult. Patient had a scheduled oncology appointment Dr. Stanford but was found to be leukopenic and severe thrombocytopenic. Patient has lactic acidosis. Cultures are negative so far. Respiratory panel negative. ID consult reviewed and recommended oncology evaluation. EBV and CMV ordered. Patient had loose bowel movements. 10/29: Patient still having intermittent fever. On Vanco and meropenem. IV Lasix 40 mg given this morning. On high flow oxygen Airvo. Oncologist consult reviewed. Granix 3 mg subcu daily for neutropenia. Jairon is on hold. Continue anastrozole 1 mg once daily. 2D echo shows EF 70% LV systolic function normal, trivial MR TR and eccentric AR. ID consult reviewed. Recommended if no answer found or not improving over the next 1 to [address] abdomen pelvis with contrast and bone marrow biopsy. 10/30: Incentive spirometry and Pep For bronchopulmonary hygiene. Acidophilus added for possible antibiotic related loose bowel movement. No fever last night. Furosemide 40 mg IV 1 dose given. WBC count improving. Patient still is pancytopenic. Monitor CBC 10/31: Hypoxia worsened on high flow oxygen. Patient agreeable for Airvo. Cultures reviewed. Blood cultures negative for more than 48 hours. EBV CMV pending. No fever in last 48 hours. Vancomycin discontinued, continue meropenem as recommended by ID. ID consult reviewed 11/01: Airvo 65% FiO2, patient is being taken for bronchoscopy. Bronchoscopy showed erythema present throughout tracheobronchial tree BAL performed in lingula and right middle lobe. Patient continued to be hypoxic on high FiO2 with bilateral crepitations. Cultures so far negative. Continue to be pancytopenic. 11/02: Patient had bronchoscopy yesterday. BAL preliminary gram stain shows 1-2+ mixed gram-positive organism. Enteric bacteriology panel negative. EBV and histoplasma antibody pending. 11/03: Last chest x-ray on 10/31 shows increased infiltrate in the right lung and nodularity at right lower lung field therefore possibility of bilateral pneumonitis due to Ibrance. Prelim gram stain of bronc shows mixed 2+ gram-positive organism. Patient on 50% FiO2 Airvo. Hemoglobin 7.3 and platelet count 81,000. Mild improvement in platelet count. Neutropenia resolved. ANC 8.2 thousand. DC Granix. Patient hypoxia is constant on 50% FiO2, therefore transferred to PCU. 2. Acute hypoxic respiratory failure: Patient on high flow oxygen and Airvo. 3. CKD stage IIIb: Creatinine 0.85 increasing bicarb, low sodium due to Lasix. Lasix on hold. 11/03: Increase in creatinine from 1.09-1.31 does not meet criteria for THOMAS. Monitor kidney function and electrolytes. Mild hyponatremia with increased metabolic alkalosis due to diuresis, contraction alkalosis 4. Diabetes mellitus type 2: Patient has insulin pump. Creatinine is stable. Acceptable glucose level. 11/02: Patient has insulin pump therefore sliding scale discontinued 11/03: Patient glucose 343 in BMP. Patient has insulin pump 5. hypothyroidism Continue Synthroid. 6. Stage IV breast cancer S/P left breast mastectomy, currently on Ibrance. Follows with Dr. Stanford. Continue anastrozole. 7. Dyslipidemia Continue statin. 8. Hypokalemia: Resolved. Continue monitoring BMP. DVT prophylaxis - SCD's, chemoprophylaxis not indicated due to thrombocytopenia. Total time of the visit including total time spent in counseling or coordination of care, (more than 50% of the total time, spent in obtaining medical information from nurses and other ancillary care providers,explaining to the patient about labs, imaging, diagnosis and management), discussion with consultants, review of labs and imaging is 40 minutes. I spent 25 minutes and SUSANA Malone spent 15 minutes. Charges/Coding Visit Charges Inpatient E&M: 59691 [facility] Hosp L3
[2021-11-03] MEDS: Metoprolol(XL)Succ 100 MG Tablet PO (08:06)
[2021-11-03] MEDS: Menthol/Lanolin/Calamine/Znox 113 GM Tube 1 APPLIC TOPICAL (08:06)
[2021-11-03] MEDS: Ranolazine 500 MG Tablet PO (08:06)
[2021-11-03] MEDS: Anastrozole 1 MG TABLET PO (08:06)
--- NOTE | 2021-11-03 08:32 | NURSING ---
Blood sugar 372 per pt meter. PT self administered 4u insulin bolus via pump. Refused additional SC insulin.
--- NOTE | 2021-11-03 08:46 | PCM.RX.CS ---
Consult Pharmacy has been consulted to manage selected antiobiotic: Vancomycin Type of Consult: New start Labs: Sodium 132 mmol/L (136-145) L 11/03/21 05:00 Potassium 4.7 mmol/L (3.5-5.1) 11/03/21 05:00 Chloride 92 mmol/L (98-107) L 11/03/21 05:00 Carbon Dioxide 34.0 mmol/L (21.0-32.0) H 11/03/21 05:00 Anion Gap 6 (5-15) 11/03/21 05:00 BUN 41 mg/dL (7-18) H 11/03/21 05:00 Creatinine 1.31 mg/dL (0.55-1.02) H 11/03/21 05:00 Est GFR (MDRD) Af Amer 51 mL/min (>60) L 11/03/21 05:00 Est GFR (MDRD) Non-Af 42 mL/min (>60) L 11/03/21 05:00 BUN/Creatinine Ratio 31.3 RATIO (10-20) H 11/03/21 05:00 Glucose 343 mg/dL (74-106) H 11/03/21 05:00 Vancomycin Trough 10.0 ug/mL (5.0-15.0) 10/30/21 10:40 Microbiology: Microbiology 11/01/21 10:30 Bronchial Lavage - Right Middle Lobe Gram Stain - Final 11/01/21 10:30 Bronchial Lavage - Right Middle Lobe Respiratory Culture - Preliminary Mixed Gram Positive Organisms 11/01/21 10:30 Bronchial Lavage - Other Gram Stain - Final 11/01/21 10:30 Bronchial Lavage - Other Respiratory Culture - Preliminary Mixed Gram Positive Organisms 11/02/21 05:21 Stool Enteric Bacteriology - Final 10/27/21 20:45 Blood Culture (Wb) - Right Wrist Blood Culture - Final No growth in 5 days. 10/27/21 14:29 Blood Culture (Wb) - Right Wrist Blood Culture - Final No growth in 5 days. 10/25/21 12:05 Blood Culture (Wb) - Right Wrist Blood Culture - Final No growth in 5 days. 10/25/21 11:31 Blood Culture (Wb) - Anticubital Right Blood Culture - Final No growth in 5 days. 10/28/21 08:45 Mucosa - Nose Respiratory Panel (PCR) - Final 10/25/21 12:54 Urine Catheter - Catheter Urine Culture - Final Culture exhibits no growth. 10/25/21 13:07 Nasal Secretion SARS-CoV-2 & FLU Antigen (Rapid) - Final Weight used for dosin.3 kg Estimated Creatinine Clearance: 31ML/MIN Goal Trough: 15-20 mcg/mL Pharmacy Plan for Drug Dosing: Give initial loading dose of 1500mg IV x1, then continue with 750mg IV q24h per [facility] dosing protocol. Will check a trough before the 3rd total dose. Pharmacy Service will continue to monitor and adjust dosing as required. Follow-Up Labs: Trough Vancomycin Labs to be done on [date and time ordered]: 11/05/21 07:30
[2021-11-03] MEDS: Atorvastatin Calcium 10 MG Tablet 5 MG PO (22:16)
[2021-11-04] VITALS (15 sets, daily range): BP systolic 118–164; BP diastolic 50–62; PULSE 63–83; RESP 16–20; TEMP 36.1–36.7; O2SAT 92–99
[2021-11-04 01:16] LABS: Bedside Glucose 365 mg/dL (74-106)
--- NOTE | 2021-11-04 02:55 | NURSING ---
Patient has insulin pump and glucose monitoring device. Blood sugar in the 300s RN educates patient on SS insulin and blood sugar management. Patient refuses any SS coverage very adamant that pump provides enough insulin despite BS elevation.
[2021-11-04] MEDS: Levothyroxine 25 MCG TABLET PO (05:10)
[2021-11-04 07:12] LABS: Anion Gap 4 (5-15); BUN 35 mg/dL (7-18); BUN/Creat Ratio 28.7 RATIO (10-20); Calcium,Total 10.6 mg/dL (8.5-10.1); Chloride 96 mmol/L (98-107); Creatinine, Serum 1.22 mg/dL (0.55-1.02); EST Glomerular Filtration Rate 45 mL/min (>60); Est Glom Filt Rate - Afr Amer 55 mL/min (>60); Estimated Creatinine Clearance 40.97 ml/min; Glucose 248 mg/dL (74-106); Potassium 4.8 mmol/L (3.5-5.1); Sodium Level 135 mmol/L (136-145)
--- NOTE | 2021-11-04 08:20 | PCM.PN.INT ---
Assessment & Plan Assessment/Plan (1) Neutropenic fever: PLAN: RECOMMENDATIONS: 1. Continue to wean FiO2 as tolerated to maintain oxygen saturations at or above 90%. 2. Defer to infectious disease on continuation of antibiotics 3. Increase activity as tolerated 4. Await infectious disease recommendations on initiation of steroids for medication induced pneumonitis 5. Continue to monitor blood counts daily. Transfuse if hemoglobin drops below 7 g/dL. IMPRESSIONS: 1. Neutropenic fever with associated hypoxia The patient has evidence radiographically of uncomfortable and groundglass opacities, concerning for an underlying pulmonary infectious process. However, I cannot discount the possibility of superimposed pulmonary edema either. The patient was initially diuresed over several days, but developed a contraction alkalosis. Therefore, the diuretics were discontinued. Despite diuretic utilization, there was no significant improvement in her respiratory status. The patient has been treated with broad-spectrum antimicrobials per ID recommendations. CMV and EBV serologies are still pending. Although initially of lower clinical suspicion for Ibrance related pneumonitis, if the patient does not begin to improve and bronchoscopy work-up remains negative, will need to consider corticosteroid use. Continue Granix. Continue to wean oxygen as tolerated for saturations greater than 90%. 2. Acute on chronic kidney disease Resolved. Most likely prerenal in etiology. The patient did initially receive supplemental IV fluid hydration. Continue to monitor urine output for now. 3. Pancytopenia Related to use of Ibrance coupled with underlying infection. Continue to monitor counts daily and continue Granix. No indication for transfusion of blood products at the current time. Transfuse if hemoglobin drops below 7 g/dL. 4. History of breast CA/hypothyroidism/hyperlipidemia Complicates care, management, recovery and prognosis. Continue home medications as indicated. This note was generated with [employer] dictation software. It may contain incorrect words, spelling, and punctuation that were not noted in checking the note before signing. Subjective Subjective Patient did okay overnight. No acute issues were reported. Patient subjectively feels slightly improved compared to yesterday. Patient was able to be transitioned to nasal cannula this morning. Patient is not reporting any significant change in cough. Objective Data Objective Data Vital Signs: Vital Signs Temp Pulse Resp BP Pulse Ox 36.1 C L 63 18 164/62 H 93 11/04/21 04:10 11/04/21 07:00 11/04/21 04:53 11/04/21 04:10 11/04/21 04:53 Oxygen Flow Rate (L/min) 5 Oxygen Delivery Method Airvo Weight: 67.2 kg Body Mass Index (BMI) 28.0 Intake & Output: Intake and Output for Last 24 Hours 11/02/21 11/03/21 11/04/21 23:59 23:59 23:59 Intake Total 720 / 970 2199.75 / 2199.75 214.75 / 214.75 Output Total 150 / 150 900 / 900 Balance 570 / 820 1299.75 / 1299.75 214.75 / 214.75 Lab / Micro Data Result Diagrams: 11/03/21 05:00 11/04/21 06:39 Labs: Laboratory Results - last 24 hr 10/29/21 05:30: CMV DNA Qual PCR , EBV Capsid Ag IgG Ab Not Reportable, EBV Capsid Ag IgM Ab , EBV Nuclear Ag IgG Ab Not Reportable, EBV Antibody Interp Not Reportable 11/01/21 10:30: Fluid Source BRONCHIAL LAVAGE, Fluid Color PINK, Fluid Appearance SL CLDY, Fluid WBC 40, Fluid RBC 955, Fluid Tot Cell Count TNP, Fluid Neutrophils 78, Fluid Lymphocytes 20, Fluid Other Cells 2, Fl Pathologist Comment May follow 11/03/21 22:21: POC Glucose 365 H 11/04/21 06:39: Sodium 135 L, Potassium 4.8, Chloride 96 L, Carbon Dioxide 35.0 H, Anion Gap 4 L, BUN 35 H, Creatinine 1.22 H, Estim Creat Clear Calc 40.97, Est GFR (MDRD) Af Amer 55 L, Est GFR (MDRD) Non-Af 45 L, BUN/Creatinine Ratio 28.7 H, Glucose 248 H, Calcium 10.6 H Micro: Microbiology 11/01/21 10:30 Bronchial Lavage - Other Gram Stain - Final 11/01/21 10:30 Bronchial Lavage - Other Respiratory Culture - Final Actinomyces naeslundii 11/01/21 10:30 Bronchial Lavage - Right Middle Lobe Gram Stain - Final 11/01/21 10:30 Bronchial Lavage - Right Middle Lobe Respiratory Culture - Preliminary Mixed Gram Positive Organisms 11/02/21 05:21 Stool Enteric Bacteriology - Final 10/27/21 20:45 Blood Culture (Wb) - Right Wrist Blood Culture - Final No growth in 5 days. 10/27/21 14:29 Blood Culture (Wb) - Right Wrist Blood Culture - Final No growth in 5 days. 10/25/21 12:05 Blood Culture (Wb) - Right Wrist Blood Culture - Final No growth in 5 days. 10/25/21 11:31 Blood Culture (Wb) - Anticubital Right Blood Culture - Final No growth in 5 days. 10/28/21 08:45 Mucosa - Nose Respiratory Panel (PCR) - Final 10/25/21 12:54 Urine Catheter - Catheter Urine Culture - Final Culture exhibits no growth. 10/25/21 13:07 Nasal Secretion SARS-CoV-2 & FLU Antigen (Rapid) - Final Physical Exam Const alert Constitutional Narrative: Remains on Airvo heated high flow nasal cannula. General Appearance: cooperative and ill appearing HEENT normocephalic, head/scalp atraumatic and moist oral mucous membranes Eyes PERRL and conjunctivae normal Neck supple General: trachea midline Chest inspection of chest normal Resp no use of accessory muscles Effort and Inspection: able to speak in complete sentences; Negative for tachypneic Auscultation: diminished lung sounds; Negative for rhonchi or wheezes Cardio regular rate and regular rhythm GI normal to inspection, nondistended, normoactive bowel sounds Extremity no clubbing, cyanosis or edema Skin no rashes or lesions noted Neuro CN's II-XII intact bilaterally, moves all extremities and no focal motor deficits Psych Mood & Affect: flat affect Charges/Coding Visit Charges Inpatient E&M: 82370 Subs Hosp L3
[2021-11-04] MEDS: Ranolazine 500 MG Tablet PO (08:50)
[2021-11-04] MEDS: Menthol/Lanolin/Calamine/Znox 113 GM Tube 1 APPLIC TOPICAL ×2 (08:50→22:21)
[2021-11-04] MEDS: Anastrozole 1 MG TABLET PO (08:50)
[2021-11-04] MEDS: Metoprolol(XL)Succ 100 MG Tablet PO (08:50)
--- NOTE | 2021-11-04 08:50 | PN.HOSP_ITS ---
Subjective Subjective breathing better. Objective Data Objective Data Vital Signs: Vital Signs Temp Pulse Resp BP Pulse Ox 36.6 C 64 18 160/61 H 97 11/04/21 08:49 11/04/21 08:49 11/04/21 08:49 11/04/21 08:49 11/04/21 08:49 Oxygen Flow Rate (L/min) 8 Oxygen Delivery Method High Flow Weight: 67.2 kg Body Mass Index (BMI) 28.0 Intake & Output: Intake and Output for Last 24 Hours 11/02/21 11/03/21 11/04/21 23:59 23:59 23:59 Intake Total 720 / 970 2199.75 / 2199.75 214.75 / 214.75 Output Total 150 / 150 900 / 900 Balance 570 / 820 1299.75 / 1299.75 214.75 / 214.75 Lab / Micro Data Result Diagrams: 11/03/21 05:00 11/04/21 06:39 Labs: Laboratory Results - last 24 hr 10/29/21 05:30: CMV DNA Qual PCR , EBV Capsid Ag IgG Ab Not Reportable, EBV Capsid Ag IgM Ab , EBV Nuclear Ag IgG Ab Not Reportable, EBV Antibody Interp Not Reportable 11/01/21 10:30: Fluid Source BRONCHIAL LAVAGE, Fluid Color PINK, Fluid Appearance SL CLDY, Fluid WBC 40, Fluid RBC 955, Fluid Tot Cell Count TNP, Fluid Neutrophils 78, Fluid Lymphocytes 20, Fluid Other Cells 2, Fl Pathologist Comment October follow 11/03/21 22:21: POC Glucose 365 H 11/04/21 06:39: Sodium 135 L, Potassium 4.8, Chloride 96 L, Carbon Dioxide 35.0 H, Anion Gap 4 L, BUN 35 H, Creatinine 1.22 H, Estim Creat Clear Calc 40.97, Est GFR (MDRD) Af Amer 55 L, Est GFR (MDRD) Non-Af 45 L, BUN/Creatinine Ratio 28.7 H , Glucose 248 H, Calcium 10.6 H Micro: Microbiology 11/01/21 10:30 Bronchial Lavage - Other Gram Stain - Final 11/01/21 10:30 Bronchial Lavage - Other Respiratory Culture - Final Actinomyces naeslundii 11/01/21 10:30 Bronchial Lavage - Right Middle Lobe Gram Stain - Final 11/01/21 10:30 Bronchial Lavage - Right Middle Lobe Respiratory Culture - Preliminary Mixed Gram Positive Organisms 11/02/21 05:21 Stool Enteric Bacteriology - Final 10/27/21 20:45 Blood Culture (Wb) - Right Wrist Blood Culture - Final No growth in 5 days. 10/27/21 14:29 Blood Culture (Wb) - Right Wrist Blood Culture - Final No growth in 5 days. 10/25/21 12:05 Blood Culture (Wb) - Right Wrist Blood Culture - Final No growth in 5 days. 10/25/21 11:31 Blood Culture (Wb) - Anticubital Right Blood Culture - Final No growth in 5 days. 10/28/21 08:45 Mucosa - Nose Respiratory Panel (PCR) - Final 10/25/21 12:54 Urine Catheter - Catheter Urine Culture - Final Culture exhibits no growth. 10/25/21 13:07 Nasal Secretion SARS-CoV-2 & FLU Antigen (Rapid) - Final Physical Exam Const alert and no apparent distress Resp normal respiratory effort, no retractions, no use of accessory muscles and clear to auscultation bilaterally Cardio regular rate, regular rhythm, S1 normal heart sound and S2 normal heart sound GI normal to inspection, nondistended, normoactive bowel sounds, soft to palpation, non-tender and non-distended Extremity normal to inspection Assessment & Plan Assessment/Plan (1) Neutropenic fever: PLAN: 1. Neutropenic fever, of unclear source: * Patient has history of left breast cancer status post mastectomy, stage IV with metastasis to T1 and T2 vertebrae. * On pip/tazo and vanc * ID consult. Patient had a scheduled oncology appointment Dr. Stanford but was f ound to be leukopenic and severe thrombocytopenic. * Cultures are negative so far. Respiratory panel negative. ID consult reviewed and recommended oncology evaluation. EBV and CMV ordered. Patient had loose bowel movements. * History: * 10/29: Patient still having intermittent fever. On Vanco and meropenem. IV Lasix 40 mg given this morning. On high flow oxygen Airvo. Oncologist consult reviewed. Granix 3 mg subcu daily for neutropenia. Jairon is on hold. Continue anastrozole 1 mg once daily. 2D echo shows EF 70% LV systolic function normal, trivial MR TR and eccentric AR. ID consult reviewed. Recommended if no answer found or not improving over the next 1 to [address] abdomen pelvis with contrast and bone marrow biopsy. * 10/30: Incentive spirometry and Pep For bronchopulmonary hygiene. Acidophilus added for possible antibiotic related loose bowel movement. No fever last night. Furosemide 40 mg IV 1 dose given. WBC count improving. Patient still is pancytopenic. Monitor CBC * 10/31: Hypoxia worsened on high flow oxygen. Patient agreeable for Airvo. Cultures reviewed. Blood cultures negative for more than 48 hours. EBV CMV pending. No fever in last 48 hours. Vancomycin discontinued, continue meropenem as recommended by ID. ID consult reviewed * 11/01: Airvo 65% FiO2, patient is being taken for bronchoscopy. Bronchoscopy showed erythema present throughout tracheobronchial tree BAL performed in lingula and right middle lobe. Patient continued to be hypoxic on high FiO2 with bilateral crepitations. Cultures so far negative. Continue to be pancytopenic. * 11/02: Patient had bronchoscopy yesterday. BAL preliminary gram stain shows 1-2+ mixed gram-positive organism. Enteric bacteriology panel negative. EBV and histoplasma antibody pending. * 11/03: Last chest x-ray on 10/31 shows increased infiltrate in the right lung and nodularity at right lower lung field therefore possibility of bilateral pneumonitis due to Ibrance. Prelim gram stain of bronc shows mixed 2+ gram-positive organism. Patient on 50% FiO2 Airvo. Hemoglobin 7.3 and platelet count 81,000. Mild improvement in platelet count. Neutropenia resolved. ANC 8.2 thousand. DC Granix. Patient hypoxia is constant on 50% FiO2, therefore transferred to PCU. * 11/04: BAL cx showing acetinobacter. On amp/SB 2. Acute hypoxic respiratory failure: * improving * 2/2 pneumonia, cannot rule out pneumonitis 3. CKD stage IIIb: * Creatinine 0.85 increasing bicarb, low sodium due to Lasix. Lasix on hold. * 11/03: Increase in creatinine from 1.09-1.31 does not meet criteria for THOMAS. Monitor kidney function and electrolytes. * Mild hyponatremia with increased metabolic alkalosis due to diuresis, contraction alkalosis 4. Diabetes mellitus type 2: Patient has insulin pump. * Creatinine is stable. Acceptable glucose level. * 11/02: Patient has insulin pump therefore sliding scale discontinued * 11/03: Patient glucose 343 in BMP. Patient has insulin pump 5. hypothyroidism * Continue Synthroid. 6. Stage IV breast cancer * S/P left breast mastectomy, currently on Ibrance. Follows with Dr. Stanford. Continue anastrozole. 7. Dyslipidemia * Continue statin. 8. Hypokalemia: Resolved. Continue monitoring BMP. DVT prophylaxis - SCD's, chemoprophylaxis not indicated due to thrombocytopenia. Charges/Coding Visit Charges Inpatient E&M: 22239 Subs Hosp L2
[2021-11-04 10:24] LABS: Pathologist Review Reviewed
--- NOTE | 2021-11-04 11:29 | NURSING ---
Patient's BG 338 with her meter, insulin administered via patient's insulin pump. Pt refused additional coverage.
--- NOTE | 2021-11-04 13:30 | PCM.PN.ID ---
Physical Exam Narrative Feeling about the same. No fever, still some dyspnea, mild cough. Const alert and no apparent distress General Appearance: cooperative Resp clear to auscultation bilaterally Auscultation: diminished lung sounds Cardio regular rate and regular rhythm GI soft to palpation, non-tender and non-distended Skin no rashes or lesions noted ID ID: Route of nutrition/ use of supplements: [] Nutritional Intake: [] IV Site: [] Justice Catheter: [] Assessment & Plan Assessment/Plan (1) Metastatic breast cancer: (2) Neutropenic fever: PLAN: Neutropenic fever with new pancytopenia of unclear source. ANC recovered, fever resolved. Viral panel neg. Neg for cmv/ebc. Bronch 11/01 showing GPR, actino. Will narrow to unasyn to cover. Will follow
--- NOTE | 2021-11-04 16:06 | CASEMGMT ---
SW noted PT is recommending SNF for patient. SW met with patient, introduced self and role at [facility]. SW asked patient if she feels she will be strong enough to go home at discharge. Patient is not sure. SW did provide patient with a list of SNF providers including quality and resource use data and consistent with the patient?s preferred geographic region, medical needs, and insurance network. SW told patient [facility] and RN EVELYN are following to assist with d/c planning. Sandra HENRIQUEZ
--- NOTE | 2021-11-04 16:45 | NURSING ---
Patient BG is 245, insulin given via patient's insulin pump. Pt refused additional coverage.
[2021-11-04] MEDS: 0.9% Saline Lock 10 ML Syringe IV (22:19)
[2021-11-04] MEDS: Atorvastatin Calcium 10 MG Tablet 5 MG PO (22:21)
--- NOTE | 2021-11-04 23:22 | NURSING ---
At 2200 patient's insulin pump showed a glucose level of 241, not known how much pump gave to patient
[2021-11-05] VITALS (14 sets, daily range): BP systolic 103–130; BP diastolic 46–68; PULSE 71–87; RESP 16–20; TEMP 36.6–36.8; O2SAT 91–99
[2021-11-05] MEDS: Levothyroxine 25 MCG TABLET PO (06:14)
[2021-11-05] MEDS: 0.9% Saline Lock 10 ML Syringe IV (06:16)
--- NOTE | 2021-11-05 06:37 | NURSING ---
Insulin pump/glucose reading this am at 0615 was 197.
--- NOTE | 2021-11-05 07:26 | PN.HOSP_ITS ---
Subjective Subjective Breathing better. Has not been using IS regularly. Objective Data Objective Data Vital Signs: Vital Signs Temp Pulse Resp BP Pulse Ox 36.8 C 71 16 130/54 H 99 11/05/21 04:59 11/05/21 04:59 11/05/21 04:59 11/05/21 04:59 11/05/21 04:59 Oxygen Flow Rate (L/min) 6 Oxygen Delivery Method High Flow Weight: 65 kg Body Mass Index (BMI) 28.0 Intake & Output: Intake and Output for Last 24 Hours 11/03/21 11/04/21 11/05/21 23:59 23:59 23:59 Intake Total 2199.75 / 2199.75 1268.75 / 1268.75 Output Total 900 / 900 100 / 100 Balance 1299.75 / 1299.75 1168.75 / 1168.75 Lab / Micro Data Result Diagrams: 11/05/21 07:35 11/05/21 07:35 Labs: Laboratory Results - last 24 hr 10/31/21 04:44: Diff Path Review Reviewed 11/01/21 10:30: Fluid Source BRONCHIAL LAVAGE, Fluid Color PINK, Fluid Appearance SL CLDY, Fluid WBC 40, Fluid RBC 955, Fluid Tot Cell Count TNP, Fluid Neutrophils 78, Fluid Lymphocytes 20, Fluid Other Cells 2, Fl Pathologist Comment May follow Micro: Microbiology 11/01/21 10:30 Bronchial Lavage - Right Middle Lobe Gram Stain - Final 11/01/21 10:30 Bronchial Lavage - Right Middle Lobe Respiratory Culture - Preliminary Gram positive jeancarlos 11/01/21 10:30 Bronchial Lavage - Other Gram Stain - Final 11/01/21 10:30 Bronchial Lavage - Other Respiratory Culture - Final Actinomyces naeslundii 11/02/21 05:21 Stool Enteric Bacteriology - Final 10/27/21 20:45 Blood Culture (Wb) - Right Wrist Blood Culture - Final No growth in 5 days. 10/27/21 14:29 Blood Culture (Wb) - Right Wrist Blood Culture - Final No growth in 5 days. 10/25/21 12:05 Blood Culture (Wb) - Right Wrist Blood Culture - Final No growth in 5 days. 10/25/21 11:31 Blood Culture (Wb) - Anticubital Right Blood Culture - Final No growth in 5 days. 10/28/21 08:45 Mucosa - Nose Respiratory Panel (PCR) - Final 10/25/21 12:54 Urine Catheter - Catheter Urine Culture - Final Culture exhibits no growth. 10/25/21 13:07 Nasal Secretion SARS-CoV-2 & FLU Antigen (Rapid) - Final Physical Exam Const alert and no apparent distress Resp normal respiratory effort, no retractions, no use of accessory muscles and clear to auscultation bilaterally Cardio regular rate, regular rhythm, S1 normal heart sound and S2 normal heart sound GI normal to inspection, nondistended, normoactive bowel sounds, soft to palpation, non-tender and non-distended Extremity normal to inspection Neuro Sensorium / Orientation: awake and alert Assessment & Plan Assessment/Plan (1) Neutropenic fever: PLAN: 1. Neutropenic fever, of unclear source: * Patient has history of left breast cancer status post mastectomy, stage IV with metastasis to T1 and T2 vertebrae. * On pip/tazo and vanc * ID consult. Patient had a scheduled oncology appointment Dr. Stanford but was found to be leukopenic and severe thrombocytopenic. * Cultures are negative so far. Respiratory panel negative. ID consult reviewed and recommended oncology evaluation. EBV and CMV ordered. Patient had loose bowel movements. * History: * 10/29: Patient still having intermittent fever. On Vanco and meropenem. IV Lasix 40 mg given this morning. On high flow oxygen Airvo. Oncologist consult reviewed. Granix 3 mg subcu daily for neutropenia. Jairon is on hold. Continue anastrozole 1 mg once daily. 2D echo shows EF 70% LV systolic function normal, trivial MR TR and eccentric AR. ID consult reviewed. Recommended if no answer found or not improving over the next 1 to [address] abdomen pelvis with contrast and bone marrow biopsy. * 10/30: Incentive spirometry and Pep For bronchopulmonary hygiene. Acidophilus added for possible antibiotic related loose bowel movement. No fever last night. Furosemide 40 mg IV 1 dose given. WBC count improving. Patient still is pancytopenic. Monitor CBC * 10/31: Hypoxia worsened on high flow oxygen. Patient agreeable for Airvo. Cultures reviewed. Blood cultures negative for more than 48 hours. EBV CMV pending. No fever in last 48 hours. Vancomycin discontinued, continue meropenem as recommended by ID. ID consult reviewed * 11/01: Airvo 65% FiO2, patient is being taken for bronchoscopy. Bronchoscopy showed erythema present throughout tracheobronchial tree BAL performed in lingula and right middle lobe. Patient continued to be hypoxic on high FiO2 with bilateral crepitations. Cultures so far negative. Continue to be pancytopenic. * 11/02: Patient had bronchoscopy yesterday. BAL preliminary gram stain shows 1-2+ mixed gram-positive organism. Enteric bacteriology panel negative. EBV and histoplasma antibody pending. * 11/03: Last chest x-ray on 10/31 shows increased infiltrate in the right lung and nodularity at right lower lung field therefore possibility of bilateral pneumonitis due to Ibrance. Prelim gram stain of bronc shows mixed 2+ gram-positive organism. Patient on 50% FiO2 Airvo. Hemoglobin 7.3 and platelet count 81,000. Mild improvement in platelet count. Neutropenia resolved. ANC 8.2 thousand. DC Granix. Patient hypoxia is constant on 50% FiO2, therefore transferred to PCU. * 11/04: BAL cx showing acetinobacter and GPR. On amp/SB 2. Acute hypoxic respiratory failure: * improving, down to 7 liters * 2/2 pneumonia, cannot rule out pneumonitis * pulmonary toilet 3. CKD stage IIIb: * improving * Creatinine 0.85 increasing bicarb, low sodium due to Lasix. Lasix on hold. * 11/03: Increase in creatinine from 1.09-1.31 does not meet criteria for THOMAS. Monitor kidney function and electrolytes. * Mild hyponatremia with increased metabolic alkalosis due to diuresis, contraction alkalosis 4. Diabetes mellitus type 2: Patient has insulin pump. * Creatinine is stable. Acceptable glucose level. * 11/02: Patient has insulin pump therefore sliding scale discontinued * 11/03: Patient glucose 343 in BMP. Patient has insulin pump 5. hypothyroidism * Continue Synthroid. 6. Stage IV breast cancer * S/P left breast mastectomy, currently on Ibrance. Follows with Dr. Stanford. Continue anastrozole. 7. Dyslipidemia * Continue statin. 8. Hypokalemia: Resolved. Continue monitoring BMP. 9. Anemia * trending down * check B12, folate, TSH, iron, ferritin, * hold on TF for now 10.DVT prophylaxis - SCD's, chemoprophylaxis not indicated due to thrombocytopenia. Charges/Coding Visit Charges Inpatient E&M: 95502 Subs Hosp L2
[2021-11-05 07:51] LABS: Hematocrit 20.6 % (37-47); Mean Corpuscular Hgb 36.1 pg (27.0-32.0); Mean Corpuscular Volume 106.2 fL (81-99); Mean Platelet Vol. 11.2 fl (6.2-12.0); POSITIVE COUNT YES; POSITIVE MORPHOLOGY YES; Platelet Count 108 K/mm3 (150-450); RBC Distribution Width CV 14.4 % (11.6-14.6); RBC Distribution Width SD 54.4 fl (35.1-43.9); Red Blood Count 1.94 M/mm3 (4.2-5.4); White Blood Count 7.1 K/mm3 (4.4-11.0)
[2021-11-05 07:54] LABS: Differential Indicated MANUAL DIFF
--- NOTE | 2021-11-05 07:54 | PN.CC_ITS ---
Assessment & Plan Assessment/Plan (1) Neutropenic fever: PLAN: RECOMMENDATIONS: 1. Continue to wean FiO2 as tolerated to maintain oxygen saturations at or above 90%. 2. Defer to infectious disease on continuation of antibiotics 3. Increase activity as tolerated 4. No steroids at this time given improvement in oxygenation 5. Continue to monitor blood counts daily. Transfuse if hemoglobin drops below 7 g/dL. IMPRESSIONS: 1. 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 However, I cannot discount the possibility of superimposed pulmonary edema either. The patient was initially diuresed over several days, but developed a contraction alkalosis. Therefore, the diuretics were discontinued. Despite diuretic utilization, there was no significant improvement in her respiratory status. The patient has been treated with broad-spectrum antimicrobials per ID recommendations. Patient's oxygenation status continues to improve with antibiotics. We will hold on steroids for now. Continue Granix. Continue to wean oxygen as tolerated for saturations greater than 90%. 2. Acute on chronic kidney disease Resolved. Most likely prerenal in etiology. The patient did initially receive supplemental IV fluid hydration. Continue to monitor urine output for now. 3. Pancytopenia Related to use of Ibrance coupled with underlying infection. Continue to monitor counts daily and continue Granix. No indication for transfusion of blood products at the current time. Transfuse if hemoglobin drops below 7 g/dL. 4. History of breast CA/hypothyroidism/hyperlipidemia Complicates care, management, recovery and prognosis. Continue home medications as indicated. This note was generated with [employer] dictation software. It may contain incorrect words, spelling, and punctuation that were not noted in checking the note before signing. Subjective Subjective Patient did okay overnight. No significant change in overall condition. Patient does report that she is very tired and spending most of her time sleeping. Patient does not report any significant change in cough. No chest pain, abdominal pain, nausea or vomiting has been reported. No bleeding complications have been noted. Objective Data Objective Data Vital Signs: Vital Signs Temp Pulse Resp BP Pulse Ox 36.8 C 71 16 130/54 H 99 11/05/21 04:59 11/05/21 07:00 11/05/21 04:59 11/05/21 04:59 11/05/21 04:59 Oxygen Flow Rate (L/min) 6 Oxygen Delivery Method High Flow Weight: 65 kg Body Mass Index (BMI) 28.0 Intake & Output: Intake and Output for Last 24 Hours 11/03/21 11/04/21 11/05/21 23:59 23:59 23:59 Intake Total 2199.75 / 2199.75 1268.75 / 1268.75 Output Total 900 / 900 100 / 100 Balance 1299.75 / 1299.75 1168.75 / 1168.75 Lab / Micro Data Result Diagrams: 11/03/21 05:00 11/04/21 06:39 Labs: Laboratory Results - last 24 hr 10/31/21 04:44: Diff Path Review Reviewed 11/01/21 10:30: Fluid Source BRONCHIAL LAVAGE, Fluid Color PINK, Fluid Appearance SL CLDY, Fluid WBC 40, Fluid RBC 955, Fluid Tot Cell Count TNP, Fluid Neutrophils 78, Fluid Lymphocytes 20, Fluid Other Cells 2, Fl Pathologist Comment May follow Micro: Microbiology 11/01/21 10:30 Bronchial Lavage - Right Middle Lobe Gram Stain - Final 11/01/21 10:30 Bronchial Lavage - Right Middle Lobe Respiratory Culture - Preliminary Gram positive jeancarlos 11/01/21 10:30 Bronchial Lavage - Other Gram Stain - Final 11/01/21 10:30 Bronchial Lavage - Other Respiratory Culture - Final Actinomyces naeslundii 11/02/21 05:21 Stool Enteric Bacteriology - Final 10/27/21 20:45 Blood Culture (Wb) - Right Wrist Blood Culture - Final No growth in 5 days. 10/27/21 14:29 Blood Culture (Wb) - Right Wrist Blood Culture - Final No growth in 5 days. 10/25/21 12:05 Blood Culture (Wb) - Right Wrist Blood Culture - Final No growth in 5 days. 10/25/21 11:31 Blood Culture (Wb) - Anticubital Right Blood Culture - Final No growth in 5 days. 10/28/21 08:45 Mucosa - Nose Respiratory Panel (PCR) - Final 10/25/21 12:54 Urine Catheter - Catheter Urine Culture - Final Culture exhibits no growth. 10/25/21 13:07 Nasal Secretion SARS-CoV-2 & FLU Antigen (Rapid) - Final Physical Exam Const alert Constitutional Narrative: Remains on Airvo heated high flow nasal cannula. General Appearance: cooperative and ill appearing HEENT normocephalic, head/scalp atraumatic and moist oral mucous membranes Eyes PERRL and conjunctivae normal Neck supple General: trachea midline Chest inspection of chest normal Resp no use of accessory muscles Effort and Inspection: able to speak in complete sentences; Negative for tachypneic Auscultation: diminished lung sounds; Negative for rhonchi or wheezes Cardio regular rate and regular rhythm GI normal to inspection, nondistended, normoactive bowel sounds Extremity no clubbing, cyanosis or edema Skin no rashes or lesions noted Neuro CN's II-XII intact bilaterally, moves all extremities and no focal motor deficits Psych Mood & Affect: flat affect Charges/Coding Visit Charges Inpatient E&M: 10454 Subs Hosp L2
[2021-11-05 08:12] LABS: Anion Gap 4 (5-15); BUN 27 mg/dL (7-18); BUN/Creat Ratio 23.3 RATIO (10-20); Calcium,Total 10.4 mg/dL (8.5-10.1); Chloride 96 mmol/L (98-107); Creatinine, Serum 1.16 mg/dL (0.55-1.02); EST Glomerular Filtration Rate 48 mL/min (>60); Est Glom Filt Rate - Afr Amer 58 mL/min (>60); Estimated Creatinine Clearance 41.68 ml/min; Glucose 193 mg/dL (74-106); Potassium 4.6 mmol/L (3.5-5.1); Sodium Level 136 mmol/L (136-145)
[2021-11-05 08:17] LABS: Eosinophil 4 % (0-5); Lymphocyte 20 % (19-41); Metamyelocyte 4 % (0-1); Monocyte 1 % (0-10); Neutrophil-Band 4 % (0-5); Neutrophil-Segmented 66 % (47-70); Promyelocyte 1 % (0-0); Total Cells Counted 100 (MANUAL DIFF)
[2021-11-05 08:18] LABS: Anisocytosis 1+; Hypochromasia 1+; Platelet Estimate SLT DEC (ADEQ)
[2021-11-05 08:19] LABS: Absolute Lymphocyte Count 1.41 X10^3/uL (0.83-4.51); Lymphocyte # 1.41 X10^3/ul (0.83-4.51); Neutrophil # 4.96 X10^3/uL (2.7-7.7)
[2021-11-05 09:13] LABS: Pathologist Comment/Body Fluid Reviewed
[2021-11-05 09:14] LABS: Pathologist Review Reviewed
[2021-11-05 09:37] LABS: Pathologist Review Reviewed
[2021-11-05 09:37] LABS: Pathologist Review Reviewed
[2021-11-05] MEDS: Ranolazine 500 MG Tablet PO (10:21)
[2021-11-05] MEDS: Metoprolol(XL)Succ 100 MG Tablet PO (10:22)
[2021-11-05] MEDS: Menthol/Lanolin/Calamine/Znox 113 GM Tube 1 APPLIC TOPICAL ×2 (10:22→22:49)
[2021-11-05] MEDS: Anastrozole 1 MG TABLET PO (10:23)
[2021-11-05 12:46] LABS: Pathologist Review Reviewed
--- NOTE | 2021-11-05 14:49 | CASEMGMT ---
Addendum entered by Whitney Christine 11/05/21 14:55: Referral faxed to [facility]. Sudhakar GREER CM Original Note: Pt is agreeable to SNF at discharge and states preference for [facility] as first choice and [facility] as 2nd choice. Pt is currently on 7L in. [facility] SW aware, voices understanding. Sudhakar GREER CM
[2021-11-05] MEDS: Atorvastatin Calcium 10 MG Tablet 5 MG PO (22:48)
[2021-11-06] VITALS (23 sets, daily range): BP systolic 95–151; BP diastolic 47–79; PULSE 69–77; RESP 16–116; TEMP 36.4–36.8; O2SAT 88–100
[2021-11-06] MEDS: Levothyroxine 25 MCG TABLET PO (06:08)
[2021-11-06 06:11] LABS: Hematocrit 19.4 % (37-47); Hemoglobin 6.4 g/dL (12.0-15.0); Mean Corpuscular Hgb 36.4 pg (27.0-32.0); Mean Corpuscular Volume 110.2 fL (81-99); Mean Platelet Vol. 11.4 fl (6.2-12.0); POSITIVE COUNT YES; POSITIVE MORPHOLOGY YES; Platelet Count 117 K/mm3 (150-450); RBC Distribution Width CV 14.5 % (11.6-14.6); RBC Distribution Width SD 55.9 fl (35.1-43.9); Red Blood Count 1.76 M/mm3 (4.2-5.4)
[2021-11-06 06:15] LABS: Differential Indicated MANUAL DIFF
[2021-11-06 06:29] LABS: Eosinophil 3 % (0-5); Lymphocyte 12 % (19-41); Metamyelocyte 1 % (0-1); Monocyte 7 % (0-10); Myelocyte 2 % (0-0); Neutrophil-Band 6 % (0-5); Neutrophil-Segmented 69 % (47-70); Nucleated Red Bld Cells,Manual 1 % (0-5); Total Cells Counted 100 (MANUAL DIFF)
[2021-11-06 06:30] LABS: Platelet Estimate SLT DEC (ADEQ)
[2021-11-06 06:31] LABS: Absolute Lymphocyte Count 0.72 X10^3/uL (0.83-4.51); Absolute Neutrophil Count 4.5 X10^3/uL (2.0-7.7); Anisocytosis 1+; Lymphocyte # 0.72 X10^3/ul (0.83-4.51); Macrocytosis 1+; Neutrophil # 4.51 X10^3/uL (2.7-7.7); Polychromasia RARE
[2021-11-06 06:49] LABS: Anion Gap 2 (5-15); BUN 23 mg/dL (7-18); BUN/Creat Ratio 20.9 RATIO (10-20); Calcium,Total 9.8 mg/dL (8.5-10.1); Chloride 96 mmol/L (98-107); EST Glomerular Filtration Rate 51 mL/min (>60); Est Glom Filt Rate - Afr Amer 62 mL/min (>60); Estimated Creatinine Clearance 46.25 ml/min; Ferritin 980 ng/mL (8-252); Glucose 175 mg/dL (74-106); Iron 48 ug/dL (50-170); Iron Binding Capacity,Total 182 ug/dL (250-450); PERCENT IRON SATURATION 26.4 % (15.0-55.0); Sodium Level 137 mmol/L (136-145); Thyroid Stim Hormone (TSH) 2.42 uIU/mL (0.358-3.74)
--- NOTE | 2021-11-06 07:33 | RAD_ITS ---
INDICATION: Hypoxia EXAMINATION/TECHNIQUE: X-RAY - XR Chest 1 View COMPARISON: Chest radiograph from 10/31/2021, 10/29/2021. FINDINGS: Support devices: None. There are some residual patchy and hazy opacities in the right lower lobe, with mildly improved aeration of the right lung when compared to prior study. Aeration of the lungs is otherwise unchanged. No sizable pleural effusion or pneumothorax. Heart size is stable. Bones and soft tissues are unchanged. RAD/Chest 1 View (Portable) IMPRESSION: Right lower lobe pneumonia and/or atelectasis, mildly improved from prior. Electronically Signed: Jethro Baer, at 11:23 EDT ,
--- NOTE | 2021-11-06 07:33 | PN.CC_ITS ---
Assessment & Plan Assessment/Plan (1) Neutropenic fever: PLAN: RECOMMENDATIONS: 1. Continue to wean FiO2 as tolerated to maintain oxygen saturations at or above 90%. 2. Defer to infectious disease on continuation of antibiotics 3. Increase activity as tolerated 4. No steroids at this time given improvement in oxygenation 5. Repeat labs pending. Transfuse if hemoglobin remains less than 7 6. Obtain chest x-ray. Possible CTA if no lobar collapse or clinical improvement through the morning IMPRESSIONS: 1. 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 However, I cannot discount the possibility of superimposed pulmonary edema either. The patient was initially diuresed over several days, but developed a contraction alkalosis. Therefore, the diuretics were discontinued. Despite diuretic utilization, there was no significant improvement in her respiratory status. The patient has been treated with broad-spectrum antimicrobials per ID recommendations. Patient with acute decompensation of oxygenation this morning. Differential would include lobar collapse, pulmonary edema and PE. Patient is not tachycardic, but is on beta-blockers. Patient did not have fever or leukocytosis to suggest a superinfection. Patient has not had any epistaxis to suggest decreased oxygen delivery. Will obtain a chest x-ray 2. Acute on chronic kidney disease Resolved. Most likely prerenal in etiology. The patient did initially receive supplemental IV fluid hydration. Continue to monitor urine output for now. 3. Pancytopenia Related to use of Ibrance coupled with underlying infection. Continue to monitor counts daily and continue Granix. No indication for transfusion of bl ood products at the current time. Transfuse if hemoglobin remains below 7 g/dL on repeat testing. 4. History of breast CA/hypothyroidism/hyperlipidemia Complicates care, management, recovery and prognosis. Continue home medications as indicated. This note was generated with [employer] dictation software. It may contain incorrect words, spelling, and punctuation that were not noted in checking the note before signing. Subjective Subjective Patient did well yesterday. However, overnight patient woke up acutely short of breath and hypoxic. Patient has subsequently remained on Airvo to maintain saturations. Patient does report a periodic cough that is relatively nonproductive but wet. Patient is not reporting any active bleeding. Objective Data Objective Data Vital Signs: Vital Signs Temp Pulse Resp BP Pulse Ox 36.4 C L 75 18 131/51 H 93 11/06/21 06:05 11/06/21 06:54 11/06/21 06:05 11/06/21 06:05 11/06/21 06:05 Oxygen Flow Rate (L/min) 55 Oxygen Delivery Method Airvo Weight: 68.4 kg Body Mass Index (BMI) 28.0 Intake & Output: Intake and Output for Last 24 Hours 11/04/21 11/05/21 11/06/21 23:59 23:59 23:59 Intake Total 1268.75 / 1268.75 1016 / 1016 100 / 100 Output Total 100 / 100 Balance 1168.75 / 1168.75 1016 / 1016 100 / 100 Lab / Micro Data Result Diagrams: 11/06/21 05:45 11/06/21 05:45 Labs: Laboratory Results - last 24 hr 11/01/21 08:00: Diff Path Review Reviewed 11/01/21 10:30: Fl Pathologist Comment Reviewed 11/01/21 10:30: Miscellaneous Cytology SEE PATHOLOGY REPORT 11/01/21 10:30: Fl Pathologist Comment Reviewed 11/01/21 10:30: Miscellaneous Cytology SEE PATHOLOGY REPORT 11/02/21 04:20: Diff Path Review Reviewed 11/03/21 05:00: Diff Path Review Reviewed 11/05/21 07:35: Vancomycin Trough 18.0 H 11/05/21 07:35: WBC 7.1, RBC 1.94 L, Hgb 7.0 L, Hct 20.6 L, MCV 106.2 H, MCH 36.1 H, MCHC 34.0 D, RDW Std Deviation 54.4 H, RDW Coeff of Alex 14.4, Plt Count 108 L, MPV 11.2, Neut % (Auto) Not Reportable, Absolute Neuts (auto) 5.0, Abs olute Lymphs (auto) 1.41, Total Counted 100, Neutrophils % (Manual) 66, Band Neutrophils % 4, Lymphocytes % (Manual) 20, Monocytes % (Manual) 1, Eosinophils % (Manual) 4, Metamyelocytes % 4 H, Promyelocytes % 1 H, Diff Path Review Reviewed, Platelet Estimate SLT DEC, Hypochromasia 1+, Anisocytosis 1+ 11/05/21 07:35: Sodium 136, Potassium 4.6, Chloride 96 L, Carbon Dioxide 36.0 H, Anion Gap 4 L, BUN 27 H, Creatinine 1.16 H, Estim Creat Clear Calc 41.68, Est GFR (MDRD) Af Amer 58 L, Est GFR (MDRD) Non-Af 48 L, BUN/Creatinine Ratio 23.3 H , Glucose 193 H, Calcium 10.4 H 11/06/21 05:45: WBC 6.0, RBC 1.76 L, Hgb 6.4 L, Hct 19.4 L, MCV 110.2 H, MCH 36.4 H, MCHC 33.0, RDW Std Deviation 55.9 H, RDW Coeff of Alex 14.5, Plt Count 117 L, MPV 11.4, Neut % (Auto) Not Reportable, Absolute Neuts (auto) 4.5, Abs olute Lymphs (auto) 0.72 L, Total Counted 100, Neutrophils % (Manual) 69, Band Neutrophils % 6 H, Lymphocytes % (Manual) 12 L, Monocytes % (Manual) 7, Eosinophils % (Manual) 3, Metamyelocytes % 1, Myelocytes % 2 H, Nucleated RBCs/100 WBC 1, Diff Path Review October, Platelet Estimate SLT DEC, Polychromasia RARE, Anisocytosis 1+, Macrocytosis 1+ 11/06/21 05:45: Sodium 137, Potassium 4.0, Chloride 96 L, Carbon Dioxide 39.0 H, Anion Gap 2 L, BUN 23 H, Creatinine 1.10 H, Estim Creat Clear Calc 46.25, Est GFR (MDRD) Af Amer 62, Est GFR (MDRD) Non-Af 51 L, BUN/Creatinine Ratio 20.9 H, Glucose 175 H, Calcium 9.8, Iron 48 L, TIBC 182 L, Iron Saturation 26.4, Ferritin 980 H, TSH 2.42 Micro: Microbiology 11/01/21 10:30 Bronchial Lavage - Right Middle Lobe Gram Stain - Final 11/01/21 10:30 Bronchial Lavage - Right Middle Lobe Respiratory Culture - Preliminary Gram positive jeancarlos 11/01/21 10:30 Bronchial Lavage - Other Gram Stain - Final 11/01/21 10:30 Bronchial Lavage - Other Respiratory Culture - Final Actinomyces naeslundii 11/02/21 05:21 Stool Enteric Bacteriology - Final 10/27/21 20:45 Blood Culture (Wb) - Right Wrist Blood Culture - Final No growth in 5 days. 10/27/21 14:29 Blood Culture (Wb) - Right Wrist Blood Culture - Final No growth in 5 days. 10/25/21 12:05 Blood Culture (Wb) - Right Wrist Blood Culture - Final No growth in 5 days. 10/25/21 11:31 Blood Culture (Wb) - Anticubital Right Blood Culture - Final No growth in 5 days. 10/28/21 08:45 Mucosa - Nose Respiratory Panel (PCR) - Final 10/25/21 12:54 Urine Catheter - Catheter Urine Culture - Final Culture exhibits no growth. 10/25/21 13:07 Nasal Secretion SARS-CoV-2 & FLU Antigen (Rapid) - Final Physical Exam Const alert Constitutional Narrative: Remains on Airvo heated high flow nasal cannula. General Appearance: cooperative and ill appearing HEENT normocephalic, head/scalp atraumatic and moist oral mucous membranes Eyes PERRL and conjunctivae normal Neck supple General: trachea midline Chest inspection of chest normal Resp no use of accessory muscles Effort and Inspection: able to speak in complete sentences; Negative for tachypneic Auscultation: diminished lung sounds; Negative for rhonchi or wheezes Cardio regular rate and regular rhythm GI normal to inspection, nondistended, normoactive bowel sounds Extremity no clubbing, cyanosis or edema Skin no rashes or lesions noted Neuro CN's II-XII intact bilaterally, moves all extremities and no focal motor deficits Psych Mood & Affect: flat affect Charges/Coding Visit Charges Inpatient E&M: 60441 Subs Hosp L3
--- NOTE | 2021-11-06 07:44 | PN.HOSP_ITS ---
Subjective Subjective Feeling well. Increased oxygen overnight. Objective Data Objective Data Vital Signs: Vital Signs Temp Pulse Resp BP Pulse Ox 36.4 C L 75 18 131/51 H 93 11/06/21 06:05 11/06/21 06:54 11/06/21 06:05 11/06/21 06:05 11/06/21 06:05 Oxygen Flow Rate (L/min) 55 Oxygen Delivery Method Airvo Weight: 68.4 kg Body Mass Index (BMI) 28.0 Intake & Output: Intake and Output for Last 24 Hours 11/04/21 11/05/21 11/06/21 23:59 23:59 23:59 Intake Total 1268.75 / 1268.75 1016 / 1016 100 / 100 Output Total 100 / 100 Balance 1168.75 / 1168.75 1016 / 1016 100 / 100 Lab / Micro Data Result Diagrams: 11/06/21 05:45 11/06/21 05:45 Labs: Laboratory Results - last 24 hr 11/01/21 08:00: Diff Path Review Reviewed 11/01/21 10:30: Fl Pathologist Comment Reviewed 11/01/21 10:30: Miscellaneous Cytology SEE PATHOLOGY REPORT 11/01/21 10:30: Fl Pathologist Comment Reviewed 11/01/21 10:30: Miscellaneous Cytology SEE PATHOLOGY REPORT 11/02/21 04:20: Diff Path Review Reviewed 11/03/21 05:00: Diff Path Review Reviewed 11/05/21 07:35: Vancomycin Trough 18.0 H 11/05/21 07:35: WBC 7.1, RBC 1.94 L, Hgb 7.0 L, Hct 20.6 L, MCV 106.2 H, MCH 36.1 H, MCHC 34.0 D, RDW Std Deviation 54.4 H, RDW Coeff of Alex 14.4, Plt Count 108 L, MPV 11.2, Neut % (Auto) Not Reportable, Absolute Neuts (auto) 5.0, Absolute Lymphs (auto) 1.41, Total Counted 100, Neutrophils % (Manual) 66, Band Neutrophils % 4, Lymphocytes % (Manual) 20, Monocytes % (Manual) 1, Eosinophils % (Manual) 4, Metamyelocytes % 4 H, Promyelocytes % 1 H, Diff Path Review Reviewed, Platelet Estimate SLT DEC, Hypochromasia 1+, Anisocytosis 1+ 11/05/21 07:35: Sodium 136, Potassium 4.6, Chloride 96 L, Carbon Dioxide 36.0 H, Anion Gap 4 L, BUN 27 H, Creatinine 1.16 H, Estim Creat Clear Calc 41.68, Est GFR (MDRD) Af Amer 58 L, Est GFR (MDRD) Non-Af 48 L, BUN/Creatinine Ratio 23.3 H , Glucose 193 H, Calcium 10.4 H 11/06/21 05:45: WBC 6.0, RBC 1.76 L, Hgb 6.4 L, Hct 19.4 L, MCV 110.2 H, MCH 36.4 H, MCHC 33.0, RDW Std Deviation 55.9 H, RDW Coeff of Alex 14.5, Plt Count 117 L, MPV 11.4, Neut % (Auto) Not Reportable, Absolute Neuts (auto) 4.5, Absolute Lymphs (auto) 0.72 L, Total Counted 100, Neutrophils % (Manual) 69, Band Neutrophils % 6 H, Lymphocytes % (Manual) 12 L, Monocytes % (Manual) 7, Eosinophils % (Manual) 3, Metamyelocytes % 1, Myelocytes % 2 H, Nucleated RBCs/100 WBC 1, Diff Path Review May foll, Platelet Estimate SLT DEC, Polychromasia RARE, Anisocytosis 1+, Macrocytosis 1+ 11/06/21 05:45: Sodium 137, Potassium 4.0, Chloride 96 L, Carbon Dioxide 39.0 H, Anion Gap 2 L, BUN 23 H, Creatinine 1.10 H, Estim Creat Clear Calc 46.25, Est GFR (MDRD) Af Amer 62, Est GFR (MDRD) Non-Af 51 L, BUN/Creatinine Ratio 20.9 H, Glucose 175 H, Calcium 9.8, Iron 48 L, TIBC 182 L, Iron Saturation 26.4, Ferritin 980 H, TSH 2.42 Micro: Microbiology 11/01/21 10:30 Bronchial Lavage - Right Middle Lobe Gram Stain - Final 11/01/21 10:30 Bronchial Lavage - Right Middle Lobe Respiratory Culture - Preliminary Gram positive jeancarlos 11/01/21 10:30 Bronchial Lavage - Other Gram Stain - Final 11/01/21 10:30 Bronchial Lavage - Other Respiratory Culture - Final Actinomyces naeslundii 11/02/21 05:21 Stool Enteric Bacteriology - Final 10/27/21 20:45 Blood Culture (Wb) - Right Wrist Blood Culture - Final No growth in 5 days. 10/27/21 14:29 Blood Culture (Wb) - Right Wrist Blood Culture - Final No growth in 5 days. 10/25/21 12:05 Blood Culture (Wb) - Right Wrist Blood Culture - Final No growth in 5 days. 10/25/21 11:31 Blood Culture (Wb) - Anticubital Right Blood Culture - Final No growth in 5 days. 10/28/21 08:45 Mucosa - Nose Respiratory Panel (PCR) - Final 10/25/21 12:54 Urine Catheter - Catheter Urine Culture - Final Culture exhibits no growth. 10/25/21 13:07 Nasal Secretion SARS-CoV-2 & FLU Antigen (Rapid) - Final Physical Exam Const alert and no apparent distress Constitutional Narrative: on Airvo Resp normal respiratory effort, no retractions, no use of accessory muscles and clear to auscultation bilaterally Cardio regular rate, regular rhythm, S1 normal heart sound and S2 normal heart sound GI normal to inspection, nondistended, normoactive bowel sounds, soft to palpation, non-tender and non-distended Assessment & Plan Assessment/Plan (1) Neutropenic fever: PLAN: 1. Neutropenic fever, of unclear source: * Patient has history of left breast cancer status post mastectomy, stage IV with metastasis to T1 and T2 vertebrae. * On pip/tazo and vanc * ID consult. Patient had a scheduled oncology appointment Dr. Stanford but was found to be leukopenic and severe thrombocytopenic. * Cultures are negative so far. Respiratory panel negative. ID consult reviewed and recommended oncology evaluation. EBV and CMV ordered. Patient had loose bowel movements. * History: * 10/29: Patient still having intermittent fever. On Vanco and meropenem. IV Lasix 40 mg given this morning. On high flow oxygen Airvo. Oncologist consult reviewed. Granix 3 mg subcu daily for neutropenia. Jairon is on hold. Continue anastrozole 1 mg once daily. 2D echo shows EF 70% LV systolic function normal, trivial MR TR and eccentric AR. ID consult reviewed. Recommended if no answer found or not improving over the next 1 to [address] abdomen pelvis with contrast and bone marrow biopsy. * 10/30: Incentive spirometry and Pep For bronchopulmonary hygiene. Acidophilus added for possible antibiotic related loose bowel movement. No fever last night. Furosemide 40 mg IV 1 dose given. WBC count improving. Patient still is pancytopenic. Monitor CBC * 10/31: Hypoxia worsened on high flow oxygen. Patient agreeable for Airvo. Cultures reviewed. Blood cultures negative for more than 48 hours. EBV CMV pending. No fever in last 48 hours. Vancomycin discontinued, continue meropenem as recommended by ID. ID consult reviewed * 11/01: Airvo 65% FiO2, patient is being taken for bronchoscopy. Bronchoscopy showed erythema present throughout tracheobronchial tree BAL performed in lingula and right middle lobe. Patient continued to be hypoxic on high FiO2 with bilateral crepitations. Cultures so far negative. Continue to be pancytopenic. * 11/02: Patient had bronchoscopy yesterday. BAL preliminary gram stain shows 1-2+ mixed gram-positive organism. Enteric bacteriology panel negative. EBV and histoplasma antibody pending. * 11/03: Last chest x-ray on 10/31 shows increased infiltrate in the right lung and nodularity at right lower lung field therefore possibility of bilateral pneumonitis due to Ibrance. Prelim gram stain of bronc shows mixed 2+ gram-positive organism. Patient on 50% FiO2 Airvo. Hemoglobin 7.3 and platelet count 81,000. Mild improvement in platelet count. Neutropenia resolved. ANC 8.2 thousand. DC Granix. Patient hypoxia is constant on 50% FiO2, therefore transferred to PCU. * 11/04: BAL cx showing acetinobacter and GPR. On amp/SB. CXR shows overall improvement from 10/31. Will defer to pulm if CTA imaging necessary. 2. Acute hypoxic respiratory failure: * worse today, back on Airvo * 2/2 pneumonia, cannot rule out pneumonitis. Pulmonary edema * resume furosemide. Monitor Cr and CO2. * pulmonary toilet 3. Acute HFpEF * EF 70% from Echo from 10/29 * furosemide 4. CKD stage IIIb: * improving 5. Diabetes mellitus type 2: * Acceptable glucose level. * Patient has insulin pump therefore sliding scale discontinued * pt checking own BGT and adjusting insulin pump accordingly 6. hypothyroidism * Continue Synthroid. 7. Stage IV breast cancer * S/P left breast mastectomy, currently on Ibrance. Follows with Dr. Stanford. Continue anastrozole. 8. Dyslipidemia * Continue statin. 9. Hypokalemia: Resolved. Continue monitoring BMP. 10. Anemia * trending down * iron low, but ferritin elevated, TSH WNL * B12, folate pending. * TF 1 unit PRBCs * Start QOD Ferrous sulfate 11. DVT prophylaxis - SCD's, chemoprophylaxis not indicated due to thrombocytopenia. DW patient's son at bedside. Charges/Coding Visit Charges Inpatient E&M: 24712 Subs Hosp L2
[2021-11-06 09:26] LABS: Vitamin B12 1254 pg/mL (211-911)
[2021-11-06] MEDS: Ranolazine 500 MG Tablet PO (09:33)
[2021-11-06] MEDS: Anastrozole 1 MG TABLET PO (09:33)
[2021-11-06] MEDS: Metoprolol(XL)Succ 100 MG Tablet PO (09:33)
[2021-11-06] MEDS: Menthol/Lanolin/Calamine/Znox 113 GM Tube 1 APPLIC TOPICAL ×2 (09:33→21:18)
[2021-11-06 10:27] LABS: Histoplasma Abs Negative (Neg:<1:1)
--- NOTE | 2021-11-06 10:44 | CASEMGMT ---
SW notified [facility] to hold off on referral for patient as patient is getting worse. Sandra Mc FILLER [employer]
[2021-11-06] MEDS: Furosemide 40 MG/4 ML Vial IV ×2 (13:27→18:26)
[2021-11-06] MEDS: 0.9% Saline Lock 10 ML Syringe IV ×3 (13:27→18:27)
[2021-11-06 14:04] LABS: Pathologist Review Reviewed
[2021-11-06] MEDS: Atorvastatin Calcium 10 MG Tablet 5 MG PO (21:19)
[2021-11-07] VITALS (9 sets, daily range): BP systolic 120–139; BP diastolic 56–67; PULSE 68–75; RESP 17–18; TEMP 36.4–36.8; O2SAT 92–96
[2021-11-07] MEDS: Levothyroxine 25 MCG TABLET PO (05:18)
[2021-11-07 06:49] LABS: Hematocrit 26.2 % (37-47); Hemoglobin 8.6 g/dL (12.0-15.0); Mean Corp Hgb Conc 32.8 g/dL (32-36); Mean Corpuscular Hgb 34.3 pg (27.0-32.0); Mean Corpuscular Volume 104.4 fL (81-99); Mean Platelet Vol. 11.6 fl (6.2-12.0); POSITIVE COUNT YES; POSITIVE MORPHOLOGY YES; Platelet Count 119 K/mm3 (150-450); RBC Distribution Width CV 17.3 % (11.6-14.6); RBC Distribution Width SD 65.5 fl (35.1-43.9); Red Blood Count 2.51 M/mm3 (4.2-5.4); White Blood Count 5.3 K/mm3 (4.4-11.0)
[2021-11-07 06:51] LABS: Differential Indicated MANUAL DIFF
--- NOTE | 2021-11-07 07:04 | PN.CC_ITS ---
Assessment & Plan Assessment/Plan (1) Neutropenic fever: PLAN: RECOMMENDATIONS: 1. Continue to wean FiO2 as tolerated to maintain oxygen saturations at or above 90%. 2. Defer to infectious disease on continuation of antibiotics 3. Increase activity as tolerated. Obtain walking oximetry today 4. No steroids at this time given improvement in oxygenation 5. Repeat labs pending. Transfuse if hemoglobin remains less than 7 6. Potential discharge planning if able to tolerate ambulation on 6 L or less. IMPRESSIONS: 1. 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 However, I cannot discount the possibility of superimposed pulmonary edema either. The patient was initially diuresed over several days, but developed a contraction alkalosis. Therefore, the diuretics were discontinued. Despite diuretic utilization, there was no significant improvement in her respiratory status. The patient has been treated with broad-spectrum antimicrobials per ID recommendations. X-ray did not show any lobar collapse, but clinical course is suggestive of mucous plugging as an etiology. Patient is back down to her previous requirements. Will obtain a walking oximetry. If patient is able to tolerate ambulation on 6 L or less, potential discharge with a follow-up with a nurse practitioner in our office in 2 weeks. 2. Acute on chronic kidney disease Resolved. Most likely prerenal in etiology. The patient did initially receive supplemental IV fluid hydration. Continue to monitor urine output for now. 3. Pancytopenia Related to use of Ibrance coupled with underlying infection. Continue to monitor counts daily and continue Granix. No indication for transfusion of blood products at the current time. Transfuse if hemoglobin remains below 7 g/dL on repeat testing. Patient did increment appropriately to blood transfusion yesterday 4. History of breast CA/hypothyroidism/hyperlipidemia Complicates care, management, recovery and prognosis. Continue home medications as indicated. This note was generated with [employer] dictation software. It may contain incorrect words, spelling, and punctuation that were not noted in checking the note before signing. Subjective Subjective Patient did well overnight. No acute issues were reported. Patient overall feels subjectively improved compared to previous. No coughing episodes noted overnight. The patient reportedly did have a brief episode of increased oxygen demands, but this resolved spontaneously. Objective Data Objective Data Vital Signs: Vital Signs Temp Pulse Resp BP Pulse Ox 36.4 C L 69 18 136/67 H 96 11/07/21 05:12 11/07/21 05:12 11/07/21 05:12 11/07/21 05:12 11/07/21 05:12 Oxygen Flow Rate (L/min) 4 Oxygen Delivery Method Nasal Cannula Weight: 67.4 kg Body Mass Index (BMI) 28.0 Intake & Output: Intake and Output for Last 24 Hours 11/05/21 11/06/21 11/07/21 23:59 23:59 23:59 Intake Total 1016 / 1016 1396 / 1396 162 / 162 Balance 1016 / 1016 1396 / 1396 162 / 162 Lab / Micro Data Result Diagrams: 11/07/21 05:42 11/06/21 05:45 Labs: Laboratory Results - last 24 hr 10/30/21 10:40: Histoplasma Antibody Negative 11/06/21 05:45: Diff Path Review Reviewed 11/06/21 05:45: Vitamin B12 1254 H 11/06/21 08:08: Blood Type B NEGATIVE, Antibody Screen NEGATIVE, Crossmatch See Detail 11/07/21 05:42: WBC 5.3, RBC 2.51 L, Hgb 8.6 L, Hct 26.2 L, MCV 104.4 H D, MCH 34.3 H, MCHC 32.8, RDW Std Deviation 65.5 H, RDW Coeff of Alex 17.3 H, Plt Count 119 L, MPV 11.6, Neut % (Auto) Not Reportable Micro: Microbiology 11/01/21 10:30 Bronchial Lavage - Right Middle Lobe Gram Stain - Final 11/01/21 10:30 Bronchial Lavage - Right Middle Lobe Respiratory Culture - Final 11/01/21 10:30 Bronchial Lavage - Other Gram Stain - Final 11/01/21 10:30 Bronchial Lavage - Other Respiratory Culture - Final Actinomyces naeslundii 11/02/21 05:21 Stool Enteric Bacteriology - Final 10/27/21 20:45 Blood Culture (Wb) - Right Wrist Blood Culture - Final No growth in 5 days. 10/27/21 14:29 Blood Culture (Wb) - Right Wrist Blood Culture - Final No growth in 5 days. 10/25/21 12:05 Blood Culture (Wb) - Right Wrist Blood Culture - Final No growth in 5 days. 10/25/21 11:31 Blood Culture (Wb) - Anticubital Right Blood Culture - Final No growth in 5 days. 10/28/21 08:45 Mucosa - Nose Respiratory Panel (PCR) - Final 10/25/21 12:54 Urine Catheter - Catheter Urine Culture - Final Culture exhibits no growth. 10/25/21 13:07 Nasal Secretion SARS-CoV-2 & FLU Antigen (Rapid) - Final Radiography Diagnostic Testing: Radiology Impression Chest X-Ray 11/06/21 07:33 IMPRESSION: Right lower lobe pneumonia and/or atelectasis, mildly improved from prior. Electronically Signed: Jethro Baer, at 11:23 EDT , Physical Exam Const alert Constitutional Narrative: Remains on Airvo heated high flow nasal cannula. General Appearance: cooperative and ill appearing HEENT normocephalic, head/scalp atraumatic and moist oral mucous membranes Eyes PERRL and conjunctivae normal Neck supple General: trachea midline Chest inspection of chest normal Resp no use of accessory muscles Effort and Inspection: able to speak in complete sentences; Negative for tachypneic Auscultation: diminished lung sounds; Negative for rhonchi or wheezes Cardio regular rate and regular rhythm GI normal to inspection, nondistended, normoactive bowel sounds Extremity no clubbing, cyanosis or edema Skin no rashes or lesions noted Neuro CN's II-XII intact bilaterally, moves all extremities and no focal motor d eficits Psych Mood & Affect: flat affect Charges/Coding Visit Charges Inpatient E&M: 82605 Subs Hosp L2
[2021-11-07 07:13] LABS: Anion Gap 5 (5-15); BUN 23 mg/dL (7-18); BUN/Creat Ratio 18.5 RATIO (10-20); Calcium,Total 9.8 mg/dL (8.5-10.1); Chloride 93 mmol/L (98-107); Creatinine, Serum 1.24 mg/dL (0.55-1.02); EST Glomerular Filtration Rate 45 mL/min (>60); Est Glom Filt Rate - Afr Amer 54 mL/min (>60); Estimated Creatinine Clearance 40.43 ml/min; Glucose 137 mg/dL (74-106); Potassium 3.7 mmol/L (3.5-5.1); Sodium Level 134 mmol/L (136-145)
[2021-11-07 07:14] LABS: Eosinophil 2 % (0-5); Lymphocyte 15 % (19-41); Metamyelocyte 3 % (0-1); Monocyte 10 % (0-10); Myelocyte 2 % (0-0); Neutrophil-Band 3 % (0-5); Neutrophil-Segmented 65 % (47-70); Platelet Estimate SLT DEC (ADEQ); Total Cells Counted 100 (MANUAL DIFF)
[2021-11-07 07:15] LABS: Absolute Neutrophil Count 3.6 X10^3/uL (2.0-7.7); Anisocytosis 1+; Hypochromasia 1+; Macrocytosis 1+; Polychromasia RARE
--- NOTE | 2021-11-07 08:17 | PN.HOSP_ITS ---
Subjective Subjective Feeling better. Weaned oxygen down to 4l/m. Objective Data Objective Data Vital Signs: Vital Signs Temp Pulse Resp BP Pulse Ox 36.4 C L 70 18 136/67 H 92 11/07/21 05:12 11/07/21 07:00 11/07/21 05:12 11/07/21 05:12 11/07/21 07:04 Oxygen Flow Rate (L/min) 4 Oxygen Delivery Method Nasal Cannula Weight: 67.4 kg Body Mass Index (BMI) 28.0 Intake & Output: Intake and Output for Last 24 Hours 11/05/21 11/06/21 11/07/21 23:59 23:59 23:59 Intake Total 1016 / 1016 1396 / 1396 162 / 162 Balance 1016 / 1016 1396 / 1396 162 / 162 Lab / Micro Data Result Diagrams: 11/07/21 05:42 11/07/21 05:42 Labs: Laboratory Results - last 24 hr 10/30/21 10:40: Histoplasma Antibody Negative 11/06/21 05:45: Diff Path Review Reviewed 11/06/21 05:45: Vitamin B12 1254 H 11/06/21 08:08: Blood Type B NEGATIVE, Antibody Screen NEGATIVE, Crossmatch See Detail 11/07/21 05:42: WBC 5.3, RBC 2.51 L, Hgb 8.6 L, Hct 26.2 L, MCV 104.4 H D, MCH 34.3 H, MCHC 32.8, RDW Std Deviation 65.5 H, RDW Coeff of Alex 17.3 H, Plt Count 119 L, MPV 11.6, Neut % (Auto) Not Reportable, Absolute Neuts (auto) 3.6, Absolute Lymphs (auto) 0.80 L, Total Counted 100, Neutrophils % (Manual) 65, Band Neutrophils % 3, Lymphocytes % (Manual) 15 L, Monocytes % (Manual) 10, Eosinophils % (Manual) 2, Metamyelocytes % 3 H, Myelocytes % 2 H, Diff Path Review May , Platelet Estimate SLT DEC, Polychromasia RARE, Hypochromasia 1+, Anisocytosis 1+, Macrocytosis 1+ 11/07/21 05:42: Sodium 134 L, Potassium 3.7, Chloride 93 L, Carbon Dioxide 36.0 H, Anion Gap 5, BUN 23 H, Creatinine 1.24 H, Estim Creat Clear Calc 40.43, Est GFR (MDRD) Af Amer 54 L, Est GFR (MDRD) Non-Af 45 L, BUN/Creatinine Ratio 18.5, Glucose 137 H, Calcium 9.8 Micro: Microbiology 11/01/21 10:30 Bronchial Lavage - Right Middle Lobe Gram Stain - Final 11/01/21 10:30 Bronchial Lavage - Right Middle Lobe Respiratory Culture - Final 11/01/21 10:30 Bronchial Lavage - Other Gram Stain - Final 11/01/21 10:30 Bronchial Lavage - Other Respiratory Culture - Final Actinomyces naeslundii 11/02/21 05:21 Stool Enteric Bacteriology - Final 10/27/21 20:45 Blood Culture (Wb) - Right Wrist Blood Culture - Final No growth in 5 days. 10/27/21 14:29 Blood Culture (Wb) - Right Wrist Blood Culture - Final No growth in 5 days. 10/25/21 12:05 Blood Culture (Wb) - Right Wrist Blood Culture - Final No growth in 5 days. 10/25/21 11:31 Blood Culture (Wb) - Anticubital Right Blood Culture - Final No growth in 5 days. 10/28/21 08:45 Mucosa - Nose Respiratory Panel (PCR) - Final 10/25/21 12:54 Urine Catheter - Catheter Urine Culture - Final Culture exhibits no growth. 10/25/21 13:07 Nasal Secretion SARS-CoV-2 & FLU Antigen (Rapid) - Final Radiography Diagnostic Testing: Radiology Impression Chest X-Ray 11/06/21 07:33 IMPRESSION: Right lower lobe pneumonia and/or atelectasis, mildly improved from prior. Electronically Signed: Jethro Baer, at 11:23 EDT , Physical Exam Const alert and no apparent distress Resp Resp Narrative: faint bilateral crackles. Cardio regular rate, regular rhythm, S1 normal heart sound and S2 normal heart sound GI normal to inspection, nondistended, normoactive bowel sounds and soft to palpation Extremity Extremity Narrative: improved upper and lower extremity edema. Assessment & Plan Assessment/Plan (1) Neutropenic fever: PLAN: 1. Neutropenic fever, 2/2 pneumonia * Patient has history of left breast cancer status post mastectomy, stage IV with metastasis to T1 and T2 vertebrae. * On pip/tazo and vanc * ID consult. Patient had a scheduled oncology appointment Dr. Stanford but was found to be leukopenic and severe thrombocytopenic. * Cultures are negative so far. Respiratory panel negative. ID consult reviewed and recommended oncology evaluation. EBV and CMV ordered. Patient had loose bowel movements. * History: * 10/29: Patient still having intermittent fever. On Vanco and meropenem. IV Lasix 40 mg given this morning. On high flow oxygen Airvo. Oncologist consult reviewed. Granix 3 mg subcu daily for neutropenia. Jairon is on hold. Continue anastrozole 1 mg once daily. 2D echo shows EF 70% LV systolic function normal, trivial MR TR and eccentric AR. ID consult reviewed. Recommended if no answer found or not improving over the next 1 to [address] abdomen pelvis with contrast and bone marrow biopsy. * 10/30: Incentive spirometry and Pep For bronchopulmonary hygiene. Acidophilus added for possible antibiotic related loose bowel movement. No fever last night. Furosemide 40 mg IV 1 dose given. WBC count improving. Patient still is pancytopenic. Monitor CBC * 10/31: Hypoxia worsened on high flow oxygen. Patient agreeable for Airvo. Cultures reviewed. Blood cultures negative for more than 48 hours. EBV CMV pending. No fever in last 48 hours. Vancomycin discontinued, continue meropenem as recommended by ID. ID consult reviewed * 11/01: Airvo 65% FiO2, patient is being taken for bronchoscopy. Bronchoscopy showed erythema present throughout tracheobronchial tree BAL performed in lingula and right middle lobe. Patient continued to be hypoxic on high FiO2 with bilateral crepitations. Cultures so far negative. Continue to be pancytopenic. * 11/02: Patient had bronchoscopy yesterday. BAL preliminary gram stain shows 1-2+ mixed gram-positive organism. Enteric bacteriology panel negative. EBV and histoplasma antibody pending. * 11/03: Last chest x-ray on 10/31 shows increased infiltrate in the right lung and nodularity at right lower lung field therefore possibility of bilateral pneumonitis due to Ibrance. Prelim gram stain of bronc shows mixed 2+ gram-positive organism. Patient on 50% FiO2 Airvo. Hemoglobin 7.3 and platelet count 81,000. Mild improvement in platelet count. Neutropenia resolved. ANC 8.2 thousand. DC Granix. Patient hypoxia is constant on 50% FiO2, therefore transferred to PCU. * 11/04: BAL cx showing actinomyces. On amp/SB. CXR shows overall improvement from 10/31. Will defer to pulm if CTA imaging necessary. * 11/07: change abx to amoxicillin and treat for 3 more days to complete a 7 day course. 2. Acute hypoxic respiratory failure: * improved. Now on 4 Liters * 2/2 pneumonia and CHF, cannot rule out pneumonitis. Pulmonary edema * resume furosemide. Monitor Cr and CO2. * pulmonary toilet 3. Acute HFpEF * EF 70% from Echo from 10/29 * furosemide, change to PO. 4. CKD stage IIIb: * improving 5. Diabetes mellitus type 2: * Acceptable glucose level. * Patient has insulin pump therefore sliding scale discontinued * pt checking own BGT and adjusting insulin pump accordingly 6. hypothyroidism * Continue Synthroid. 7. Stage IV breast cancer * S/P left breast mastectomy, currently on Ibrance. Follows with Dr. Stanford. Continue anastrozole. 8. Dyslipidemia * Continue statin. 9. Hypokalemia: Resolved. Continue monitoring BMP. 10. Anemia * improved after 1 unit PRBCs * iron low, but ferritin elevated, TSH WNL.B12 elevated * folate pending. * Start QOD Ferrous sulfate 11. DVT prophylaxis - SCD's, chemoprophylaxis not indicated due to thrombocytopenia. DC to SNF. Charges/Coding Visit Charges Inpatient E&M: 83692 Subs Hosp L2
--- NOTE | 2021-11-07 09:07 | PCM.DC ---
Discharge Instructions Diet Discharge Diet: No restrictions, Low fat / Low cholesterol and 2000 Calorie Control Diet Activity Discharge Activity: Return to Normal Activity Weight Bearing Status: Weight bearing as tolerated Dressing / Incision Call your doctor if you observe: Fever of 101 or Higher, Numbness or Tingling, Shortness of breath, Dizziness, Chest pain, Increased palpitations (irregular heartbeat) and Calf discomfort Follow Up Care Please Follow Up With: Primary care provider Test Results: Test results from this visit will be discussed in further detail at your follow-up appointment, if applicable. Discharge Plan Admission Admit Date/Time: 10/25/21 16:32 Primary Reason for Your Visit: Abnormal labs Attending Provider: Karel Landa Primary Care Provider: Celina Dangelo Consulting Providers: Devante Nix ; Fidelina Wynne ; Beto Colon ; John Valencia ; Michoacano Donato ; Kandy Corbin NP ; Shiraz Blank ; Ross Alvarez Discharge Orders/Prescriptions Prescriptions: New levofloxacin 750 mg tablet 750 mg PO DAILY Qty: 5 RF: 0 acetaminophen [Tylenol] 325 mg Tablet 650 mg PO Q6H PRN PRN (Reason: Pain Score 1-10/Temp > 100.7 F) Qty: 0 RF: 0 ferrous sulfate [FeroSul] 325 mg (65 mg iron) Tablet 325 mg PO QODAY Qty: 30 RF: 0 furosemide 40 mg Tablet 40 mg PO DAILY Qty: 0 RF: 0 amoxicillin 500 mg capsule 500 mg PO Q8H Qty: 9 RF: 0 potassium chloride 8 mEq capsule, extended release 8 meq PO DAILY Qty: 30 RF: 0 Continued cholecalciferol (vitamin D3) 1,000 unit capsule 25 mcg (1,000 unit) capsule 2,000 unit PO BID RF: 0 Prolia 60 mg/mL syringe 60 mg SC QMONTH RF: 0 metoprolol succinate 100 mg tablet extended release 24 hr 100 mg PO DAILY RF: 0 simvastatin 10 mg tablet 10 mg PO QHS RF: 0 insulin aspart U-100 [Novolog U-100 Insulin aspart] 100 unit/mL solution 60 unit subcut DAILY RF: 0 levothyroxine 25 mcg capsule 25 mcg 25 mcg PO QDAY RF: 0 anastrozole [Arimidex] 1 mg tablet 1 mg PO DAILY RF: 0 ranolazine 500 mg tablet extended release 12 hr 500 mg PO DAILY Qty: 90 RF: 3 Discontinued Ibrance 75 mg Capsule 75 mg PO DAILY RF: 0 Hold Instructions: Hold until you can follow up with Dr. Stanford. Referrals / Follow Up: Celina Dangelo DO [Primary Care Provider] - Within 2 Weeks Cheko Stanford DO [STAFF PHYSICIAN] - Within 1 Week (Follow up with Dr. Stanford at your next scheduled appointment. ) Disposition Disposition (needs filled in before D/C Order can be placed): Nursing Home Facility
--- NOTE | 2021-11-07 09:13 | PCM.TXEXTCAR ---
Diet 11/01/21 14:24 Diet: Consistent Carb - Calorie Controlled Food consistency:: Regular Liquid Consistency:: Regular/Thin Type of Dietary Supplement:: Glucerna Shake Is pt able to select menu?: Yes Diet Comments: 120mL glucerna w/ meals How many daily calories?: 2000 calorie Routine Orders/Code Status O2 Liters per Minute: 4 O2 Frequency: Continuous Keep PO Greater than or Equal to (%): 92 Code Status: DNRCC-A Therapies Weight Bearing: Full weight bearing Physical Therapy: Eval and Treat Occupational Therapy: Eval and Treat Problem/Diagnosis (1) Neutropenic fever: Status: Acute Allergies/Procedures Done in Hospital Allergies codeine Adverse Reaction (Verified 10/25/21 10:54) Vomiting hydrocodone Adverse Reaction (Verified 10/25/21 10:54) Vomiting meperidine [From Demerol] Adverse Reaction (Verified 10/25/21 10:54) Vomiting Type of Care/Length of Stay Estimated LOS: Convalescent Care Less Than 30 days Type of Care Needed: Skilled Rehab Potential: Fair Prognosis: Good Additional Orders/Day of Discharge Additional Orders: Patient has an insulin pump and checks her own blood sugars. Day of Discharge: 11/07/21 Dietary and Speech Recommendations Dietitian Recommendations/Changes: Will continue 2000 calorie/consistent carbohydrate and 120ml vanilla glucerna shake w/ meals. Trend weight as able. Additional ONS as needed. Follow Up Care Please Follow Up With: Primary care provider Discharge Plan Admission Admit Date/Time: 10/25/21 16:32 Primary Reason for Your Visit: Abnormal labs Attending Provider: Karel Landa Primary Care Provider: Celina Dangelo Consulting Providers: Devante Nix ; Fidelina Wynne ; Beto Colon ; John Valencia ; Michoacano Donato ; Kandy Corbin NP ; Shiraz Blank ; Ross Alvarez Instructions Additional Instructions / Restrictions: Patient checks her own blood sugars. She has an insulin pump. Discharge Orders/Prescriptions Prescriptions: New levofloxacin 750 mg tablet 750 mg PO DAILY Qty: 5 RF: 0 acetaminophen [Tylenol] 325 mg Tablet 650 mg PO Q6H PRN PRN (Reason: Pain Score 1-10/Temp > 100.7 F) Qty: 0 RF: 0 ferrous sulfate [FeroSul] 325 mg (65 mg iron) Tablet 325 mg PO QODAY Qty: 30 RF: 0 furosemide 40 mg Tablet 40 mg PO DAILY Qty: 0 RF: 0 amoxicillin 500 mg capsule 500 mg PO Q8H Qty: 9 RF: 0 potassium chloride 8 mEq capsule, extended release 8 meq PO DAILY Qty: 30 RF: 0 Continued cholecalciferol (vitamin D3) 1,000 unit capsule 25 mcg (1,000 unit) capsule 2,000 unit PO BID RF: 0 Prolia 60 mg/mL syringe 60 mg SC QMONTH RF: 0 metoprolol succinate 100 mg tablet extended release 24 hr 100 mg PO DAILY RF: 0 simvastatin 10 mg tablet 10 mg PO QHS RF: 0 insulin aspart U-100 [Novolog U-100 Insulin aspart] 100 unit/mL solution 60 unit subcut DAILY RF: 0 levothyroxine 25 mcg capsule 25 mcg 25 mcg PO QDAY RF: 0 anastrozole [Arimidex] 1 mg tablet 1 mg PO DAILY RF: 0 ranolazine 500 mg tablet extended release 12 hr 500 mg PO DAILY Qty: 90 RF: 3 Discontinued Ibrance 75 mg Capsule 75 mg PO DAILY RF: 0 Hold Instructions: Hold until you can follow up with Dr. Stanford. Referrals / Follow Up: Celina Dangelo DO [Primary Care Provider] - Within 2 Weeks Cheko Stanford DO [STAFF PHYSICIAN] - Within 1 Week (Follow up with Dr. Stanford at your next scheduled appointment. ) Disposition Disposition (needs filled in before D/C Order can be placed): Nursing Home Facility
--- NOTE | 2021-11-07 09:16 | DS.PCM_ITS ---
Providers Date of Admission: 10/25/21 Primary Care Physician: Dr. Celina Dangelo DO Consultations 10/28/21 06:14 Consult: Sample Finisher / Pulmonary Medicine Routine Consulting Provider: Pulmonary Medicine tobi Waskish Reason for Consult: Resp failure EMERGENT Consult: No Notified: Yes Date Notified: 10/28/21 Time Notified: 06:29 Method of Notification: Text 10/28/21 10:08 Consult: Infectious Disease Routine Consulting Provider: Beto Colon Reason for Consult: Neutropenic fever EMERGENT Consult: No Notified: Yes Date Notified: 10/28/21 Time Notified: 10:54 Method of Notification: Text 10/28/21 14:44 Consult: Oncology/Hematology Routine Consulting Provider: Shiraz Blank Reason for Consult: Neurtopenic fever EMERGENT Consult: No Notified: Yes Date Notified: 10/28/21 Time Notified: 14:45 Method of Notification: Verbal Reason For Visit: NEUTROPENIC FEVER Diagnosis Discharge Diagnosis (1) Neutropenic fever: Status: Acute Code(s): D70.9 - Neutropenia, unspecified; R50.81 - Fever presenting with conditions classified elsewhere Medications at Discharge Home Medications anastrozole 1 mg tablet 1 mg PO DAILY 10/25/19 denosumab 60 mg/mL subcutaneous syringe 60 mg SC QMONTH ml 01/05/20 cholecalciferol (vitamin D3) 25 mcg (1,000 unit) capsule 2,000 unit PO BID cap 07/05/20 ranolazine 500 mg tablet,extended release,12 hr 500 mg PO DAILY #90 tab 08/05/21 insulin aspart U-100 [Novolog U-100 Insulin aspart] 60 unit SUBCUT DAILY levothyroxine 25 mcg capsule 25 mcg PO QDAY 10/25/21 metoprolol succinate 100 mg PO DAILY 10/25/21 simvastatin 10 mg PO QHS 10/25/21 levofloxacin 750 mg PO DAILY #5 tab 10/27/21 acetaminophen [Tylenol] 650 mg PO Q6H PRN PRN #0 tab 11/07/21 amoxicillin 500 mg PO Q8H #9 cap 11/07/21 ferrous sulfate [FeroSul] 325 mg PO QODAY #30 tab 11/07/21 furosemide 40 mg PO DAILY #0 tab 11/07/21 potassium chloride 8 meq PO DAILY #30 cap 11/07/21 Hospital Course Operations None Procedures 2-D Echocardiogram Summary of Care Provided Minutes Spent on Discharge: 32 Hospital Course: 1. Neutropenic fever, of unclear source: * Patient has history of left breast cancer status post mastectomy, stage IV with metastasis to T1 and T2 vertebrae. * On pip/tazo and vanc * ID consult. Patient had a scheduled oncology appointment Dr. Stanford but was found to be leukopenic and severe thrombocytopenic. * Cultures are negative so far. Respiratory panel negative. ID consult reviewed and recommended oncology evaluation. EBV and CMV ordered. Patient had loose bowel movements. * History: * 10/29: Patient still having intermittent fever. On Vanco and meropenem. IV Lasix 40 mg given this morning. On high flow oxygen Airvo. Oncologist consult reviewed. Granix 3 mg subcu daily for neutropenia. Jairon is on hold. Continue anastrozole 1 mg once daily. 2D echo shows EF 70% LV systolic function normal, trivial MR TR and eccentric AR. ID consult reviewed. Recommended if no answer found or not improving over the next 1 to [address] abdomen pelvis with contrast and bone marrow biopsy. * 10/30: Incentive spirometry and Pep For bronchopulmonary hygiene. Acidophilus added for possible antibiotic related loose bowel movement. No fever last night. Furosemide 40 mg IV 1 dose given. WBC count improving. Patient still is pancytopenic. Monitor CBC * 10/31: Hypoxia worsened on high flow oxygen. Patient agreeable for Airvo. Cultures reviewed. Blood cultures negative for more than 48 hours. EBV CMV pending. No fever in last 48 hours. Vancomycin discontinued, continue meropenem as recommended by ID. ID consult reviewed * 11/01: Airvo 65% FiO2, patient is being taken for bronchoscopy. Bronchoscopy showed erythema present throughout tracheobronchial tree BAL performed in lingula and right middle lobe. Patient continued to be hypoxic on high FiO2 with bilateral crepitations. Cultures so far negative. Continue to be pancytopenic. * 11/02: Patient had bronchoscopy yesterday. BAL preliminary gram stain shows 1-2+ mixed gram-positive organism. Enteric bacteriology panel negative. EBV and histoplasma antibody pending. * 11/03: Last chest x-ray on 10/31 shows increased infiltrate in the right lung and nodularity at right lower lung field therefore possibility of bilateral pneumonitis due to Ibrance. Prelim gram stain of bronc shows mixed 2+ gram-positive organism. Patient on 50% FiO2 Airvo. Hemoglobin 7.3 and platelet count 81,000. Mild improvement in platelet count. Neutropenia resolved. ANC 8.2 thousand. DC Granix. Patient hypoxia is constant on 50% FiO2, therefore transferred to PCU. * 11/04: BAL cx showing actinomyces. On amp/SB. CXR shows overall improvement from 10/31. Will defer to pulm if CTA imaging necessary. * 11/07: change abx to amoxicillin and treat for 3 more days to complete a 7 day course. 2. Acute hypoxic respiratory failure: * improved. Now on 4 Liters * 2/2 pneumonia and CHF, cannot rule out pneumonitis. Pulmonary edema * resume furosemide. Monitor Cr and CO2. * pulmonary toilet 3. Acute HFpEF * EF 70% from Echo from 10/29 * furosemide, change to PO. 4. CKD stage IIIb: * improving 5. Diabetes mellitus type 2: * Acceptable glucose level. * Patient has insulin pump therefore sliding scale discontinued * pt checking own BGT and adjusting insulin pump accordingly 6. hypothyroidism * Continue Synthroid. 7. Stage IV breast cancer * S/P left breast mastectomy, currently on Ibrance. Follows with Dr. Stanford. Continue anastrozole. 8. Dyslipidemia * Continue statin. 9. Hypokalemia: Resolved. Continue monitoring BMP. 10. Anemia * improved after 1 unit PRBCs * iron low, but ferritin elevated, TSH WNL.B12 elevated * folate pending. * Start QOD Ferrous sulfate Weight / BMI Weight Weight: 67.4 kg Body Mass Index (BMI) 28.0 ABG / Lab / Microbiology Data Result Diagrams: 11/07/21 05:42 11/07/21 05:42 Laboratory: Laboratory Results - last 24 hr 10/30/21 10:40: Histoplasma Antibody Negative 11/06/21 05:45: Diff Path Review Reviewed 11/06/21 05:45: Vitamin B12 1254 H 11/06/21 08:08: Blood Type B NEGATIVE, Antibody Screen NEGATIVE, Crossmatch See Detail 11/07/21 05:42: WBC 5.3, RBC 2.51 L, Hgb 8.6 L, Hct 26.2 L, MCV 104.4 H D, MCH 34.3 H, MCHC 32.8, RDW Std Deviation 65.5 H, RDW Coeff of Alex 17.3 H, Plt Count 119 L, MPV 11.6, Neut % (Auto) Not Reportable, Absolute Neuts (auto) 3.6, Absolute Lymphs (auto) 0.80 L, Total Counted 100, Neutrophils % (Manual) 65, Band Neutrophils % 3, Lymphocytes % (Manual) 15 L, Monocytes % (Manual) 10, Eosinophils % (Manual) 2, Metamyelocytes % 3 H, Myelocytes % 2 H, Diff Path Review October, Platelet Estimate SLT DEC, Polychromasia RARE, Hypochromasia 1+, Anisocytosis 1+, Macrocytosis 1+ 11/07/21 05:42: Sodium 134 L, Potassium 3.7, Chloride 93 L, Carbon Dioxide 36.0 H, Anion Gap 5, BUN 23 H, Creatinine 1.24 H, Estim Creat Clear Calc 40.43, Est GFR (MDRD) Af Amer 54 L, Est GFR (MDRD) Non-Af 45 L, BUN/Creatinine Ratio 18.5, Glucose 137 H, Calcium 9.8 Microbiology: Microbiology 11/01/21 10:30 Bronchial Lavage - Right Middle Lobe Gram Stain - Final 11/01/21 10:30 Bronchial Lavage - Right Middle Lobe Respiratory Culture - Final 11/01/21 10:30 Bronchial Lavage - Other Gram Stain - Final 11/01/21 10:30 Bronchial Lavage - Other Respiratory Culture - Final Actinomyces naeslundii 11/02/21 05:21 Stool Enteric Bacteriology - Final 10/27/21 20:45 Blood Culture (Wb) - Right Wrist Blood Culture - Final No growth in 5 days. 10/27/21 14:29 Blood Culture (Wb) - Right Wrist Blood Culture - Final No growth in 5 days. 10/25/21 12:05 Blood Culture (Wb) - Right Wrist Blood Culture - Final No growth in 5 days. 10/25/21 11:31 Blood Culture (Wb) - Anticubital Right Blood Culture - Final No growth in 5 days. 10/28/21 08:45 Mucosa - Nose Respiratory Panel (PCR) - Final 10/25/21 12:54 Urine Catheter - Catheter Urine Culture - Final Culture exhibits no growth. 10/25/21 13:07 Nasal Secretion SARS-CoV-2 & FLU Antigen (Rapid) - Final Radiography Diagnostic Testing: Radiology Impression Chest X-Ray 11/06/21 07:33 IMPRESSION: Right lower lobe pneumonia and/or atelectasis, mildly improved from prior. Electronically Signed: Jethro Baer, at 11:23 EDT , D/C Instructions Discharge Diet: No restrictions, Low fat / Low cholesterol and 2000 Calorie Control Diet Weight Bearing Status: Weight bearing as tolerated Call your doctor if you observe: Fever of 101 or Higher, Numbness or Tingling, Shortness of breath, Dizziness, Chest pain, Increased palpitations (irregular heartbeat) and Calf discomfort Please Follow Up With: Primary care provider When: Within the next two weeks. Meaningful Use Info Meaningful Use Diagnoses (Choose all that apply): CHF CHF STAR/ARB ordered at discharge?: No Reason STAR/ARB not ordered?: Worsening renal disease Documented LVEF (%): 70 Discharge Plan Admission Admit Date/Time: 10/25/21 16:32 Primary Reason for Your Visit: Abnormal labs Attending Provider: Karel Landa Primary Care Provider: Celina Dangelo Consulting Providers: Devante Nix ; Fidelina Wynne ; Beto Colon ; John Valencia ; Michoacano Donato ; Kandy Corbin NP ; Shiraz Blank ; Ross Alvarez Instructions Additional Instructions / Restrictions: Patient checks her own blood sugars. She has an insulin pump. Discharge Orders/Prescriptions Prescriptions: New levofloxacin 750 mg tablet 750 mg PO DAILY Qty: 5 RF: 0 acetaminophen [Tylenol] 325 mg Tablet 650 mg PO Q6H PRN PRN (Reason: Pain Score 1-10/Temp > 100.7 F) Qty: 0 RF: 0 ferrous sulfate [FeroSul] 325 mg (65 mg iron) Tablet 325 mg PO QODAY Qty: 30 RF: 0 furosemide 40 mg Tablet 40 mg PO DAILY Qty: 0 RF: 0 amoxicillin 500 mg capsule 500 mg PO Q8H Qty: 9 RF: 0 potassium chloride 8 mEq capsule, extended release 8 meq PO DAILY Qty: 30 RF: 0 Continued cholecalciferol (vitamin D3) 1,000 unit capsule 25 mcg (1,000 unit) capsule 2,000 unit PO BID RF: 0 Prolia 60 mg/mL syringe 60 mg SC QMONTH RF: 0 metoprolol succinate 100 mg tablet extended release 24 hr 100 mg PO DAILY RF: 0 simvastatin 10 mg tablet 10 mg PO QHS RF: 0 insulin aspart U-100 [Novolog U-100 Insulin aspart] 100 unit/mL solution 60 unit subcut DAILY RF: 0 levothyroxine 25 mcg capsule 25 mcg 25 mcg PO QDAY RF: 0 anastrozole [Arimidex] 1 mg tablet 1 mg PO DAILY RF: 0 ranolazine 500 mg tablet extended release 12 hr 500 mg PO DAILY Qty: 90 RF: 3 Discontinued Ibrance 75 mg Capsule 75 mg PO DAILY RF: 0 Hold Instructions: Hold until you can follow up with Dr. Stanford. Referrals / Follow Up: Celina Dangelo DO [Primary Care Provider] - Within 2 Weeks Cheko Stanford DO [STAFF PHYSICIAN] - Within 1 Week (Follow up with Dr. Stanford at your next scheduled appointment. ) Disposition Disposition (needs filled in before D/C Order can be placed): Intermediate Facility Charges/Coding Visit Charges Inpatient E&M: 89306 Disch Hosp
--- NOTE | 2021-11-07 09:17 | CASEMGMT ---
Juli at [facility] asked about patient's chemo meds. LANDON placed a call to Dr Stanford's office regarding what medications patient will be on for her Cancer. Await return call. Physician feels patient is ready today. LANDON notified Juli at [facility] and asked if they would be able to take patient. Await response. Sandra Mc HOSPICE MANAGER [place]
[2021-11-07] MEDS: Ranolazine 500 MG Tablet PO (09:19)
[2021-11-07] MEDS: Metoprolol(XL)Succ 100 MG Tablet PO (09:19)
[2021-11-07] MEDS: Furosemide 40 MG Tablet PO (09:19)
[2021-11-07] MEDS: Menthol/Lanolin/Calamine/Znox 113 GM Tube 1 APPLIC TOPICAL (09:20)
[2021-11-07] MEDS: Anastrozole 1 MG TABLET PO (09:20)
--- NOTE | 2021-11-07 10:14 | CASEMGMT ---
LANDON received an e-mail from Juli at [facility] and they can accept patient. LANDON faxed orders to [facility]. LANDON notified RN and asked that she get a rapid COVID test. LANDON also notified accredited legal secretary and meteorologist in charge. LANDON spoke with patient and she was aware she was being discharged today. LANDON let her know [facility] is able to take her. She asked LANDON to call her son Harman and let him know the plan. Sandra HENRIQUEZ
--- NOTE | 2021-11-07 10:19 | CASEMGMT ---
SW called patient's son Harman and let him know patient will be discharged to [facility] today. He was in agreement and asked that SW call him with a pepper picker time. Sandra HENRIQUEZ
[2021-11-07 13:02] LABS: Pathologist Review Reviewed
--- NOTE | 2021-11-07 13:50 | CASEMGMT ---
SW faxed patient's COVID test to [facility]. LANDON arranged for patient to get picked up at 3p via van. LANDON notified RN, patient, patient's son Harman, replanting machine crewman, and Juli at [facility]. Plan: d/c to [facility] under skilled level of care on a convalescent stay. [facility] transported via [facility]c van. Sandra HENRIQUEZ
--- NOTE | 2021-11-07 14:54 | NURSING ---
Report called to Christal GREER at [facility].
[2021-11-07 18:07] LABS: Folate, RBC (Hct) Test 19.9 % (34.0-46.6)
[2021-11-07 18:21] LABS: Folates, RBC Test 1543 ng/mL (>498)
== END 2021-11-07 15:32 | DRG 177 ==
LOC: ED 11:31 → MS3 17:13 → ICU 11-01 17:24 → PCU 11-04 07:01 → ICU 11-04 10:38 → PCU 11-04 10:38
PROVIDERS: Internal Medicine; Internal Medicine Critical Care Medicine; Internal Medicine Infectious Disease; Physician Assistant; Admitting Provider Internal Medicine; Emergency Provider Emergency Medicine; PCP Family Medicine
PROC: 0BJ08ZZ Inspection of Tracheobronchial Tree, Via Natural or Artificial Opening Endoscopic (ICD-10-PCS; CPT 31622; principal; 2021-11-01 09:45)
DX: A42.0 Pulmonary actinomycosis (principal); J96.01 Acute respiratory failure with hypoxia; I50.31 Acute diastolic (congestive) heart failure; D61.810 Antineoplastic chemotherapy induced pancytopenia; D61.818 Other pancytopenia; C79.51 Secondary malignant neoplasm of bone; E87.1 Hypo-osmolality and hyponatremia; N17.9 Acute kidney failure, unspecified; E87.2 Acidosis; E87.3 Alkalosis; I13.0 Hypertensive heart and chronic kidney disease with heart failure and stage 1 through stage 4 chronic kidney disease, or unspecified chronic kidney disease; D70.9 Neutropenia, unspecified; J70.4 Drug-induced interstitial lung disorders, unspecified; E11.42 Type 2 diabetes mellitus with diabetic polyneuropathy; C50.912 Malignant neoplasm of unspecified site of left female breast; E11.22 Type 2 diabetes mellitus with diabetic chronic kidney disease; N18.32 Chronic kidney disease, stage 3b; E78.5 Hyperlipidemia, unspecified; E03.9 Hypothyroidism, unspecified; E87.6 Hypokalemia; R50.81 Fever presenting with conditions classified elsewhere; Z20.822 Contact with and (suspected) exposure to COVID-19; T50.995A Adverse effect of other drugs, medicaments and biological substances, initial encounter; Z66 Do not resuscitate; Z96.41 Presence of insulin pump (external) (internal); Z79.890 Hormone replacement therapy; Z79.811 Long term (current) use of aromatase inhibitors; Z90.12 Acquired absence of left breast and nipple
CPT/HCPCS: 36415; 36600; 71045; 71046; 71275; 80048; 80053; 80202; 81001; 82607; 82728; 82747; 82803; 82962; 83540; 83550; 83605; 83735; 83880; 84100; 84145; 84443; 84484; 85014; 85025; 85610; 85730; 86664; 86665; 86698; 86850; 86900; 86901; 86920; 86922; 87015; 87040; 87070; 87077; 87086; 87102; 87116; 87205; 87206; 87252; 87428; 87496; 87506; 87633; 87635; 87641; 87811; 88108; 88305; 88313; 89050; 93005; 93306; 94003; 94660; 94667; 94668; 94762; 97110; 97116; 97162; 97165; 97530; 97535; 99251; 99285; J2185; J7030; J7040; J7050; J7120; P9016; Q9957; Q9967; A4216; C8929; G0463; J0295; J1447; J1940; J2405; U0003; U0005

== ENCOUNTER → 2021-11-19 | Outpatient (CLI) | payer MEDICARE, OTHER, SELFPAY ==
[2021-11-19 08:06] VITALS: BP 115/53; PULSE 74; RESP 16; TEMP 35.5; O2SAT 100; BMI 28.8
[2021-11-19] MEDS: 0.9% NaCl Peripheral Flush Adult/Peds IV (08:43)
[2021-11-19 09:15] VITALS: BP 132/56; PULSE 67; RESP 16; TEMP 35.5; O2SAT 100
[2021-11-19 10:13] VITALS: BP 144/73; PULSE 68; RESP 16; TEMP 35.8; O2SAT 100
[2021-11-19 10:48] VITALS: BP 154/75; PULSE 68; RESP 16; TEMP 35.9
[2021-11-19] MEDS: Furosemide 20 MG/2 ML VIAL IV (11:08)
[2021-11-19 11:45] VITALS: BP 150/78; PULSE 67; RESP 16; TEMP 35.7; O2SAT 100
[2021-11-19 12:41] VITALS: BP 126/63; PULSE 67; RESP 16; TEMP 36.2
== END | disposition home or self-care (01) ==
LOC: MEDOUTP 07:56
PROVIDERS: PCP Family Medicine; Referring Provider Family Medicine; Visit Provider Family Medicine
DX: D64.9 Anemia, unspecified (principal)
CPT/HCPCS: 36430; 86850; 86900; 86901; 86920; 86922; J7040; P9016; A4216; J1940

== ENCOUNTER → 2022-01-07 | Outpatient (CLI) | payer MEDICARE, OTHER, SELFPAY ==
[2022-01-07 14:19] LABS: Hematocrit 33.8 % (37-47); Hemoglobin 10.9 g/dL (12.0-15.0); Mean Corp Hgb Conc 32.2 g/dL (32-36); Mean Corpuscular Hgb 32.2 pg (27.0-32.0); Mean Corpuscular Volume 99.7 fL (81-99); Mean Platelet Vol. 9.5 fl (6.2-12.0); Platelet Count 166 K/mm3 (150-450); RBC Distribution Width CV 15.8 % (11.6-14.6); RBC Distribution Width SD 57.4 fl (35.1-43.9); Red Blood Count 3.39 M/mm3 (4.2-5.4); White Blood Count 5.5 K/mm3 (4.4-11.0)
[2022-01-07 14:33] LABS: Protein, Urine (Random) < 6.0 mg/dL (<11.9)
[2022-01-07 14:41] LABS: PTHIN 34.3 pg/mL (18.4-80.1)
[2022-01-07 14:48] LABS: AST(SGOT) 24 U/L (15-37); Alanine Aminotransfer ALT/SGPT 28 U/L (13-56); Albumin, Serum 3.2 g/dL (3.2-5.0); Alkaline Phosphatase 63 U/L (45-117); Anion Gap 3 (5-15); BUN 17 mg/dL (7-18); BUN/Creat Ratio 11.4 RATIO (10-20); Bilirubin, Direct 0.15 mg/dL (0.00-0.30); Calcium,Total 9.4 mg/dL (8.5-10.1); Chloride 103 mmol/L (98-107); Cholesterol 171 mg/dL (200); Creatinine, Serum 1.49 mg/dL (0.55-1.02); EST Glomerular Filtration Rate 36 mL/min (>60); Est Glom Filt Rate - Afr Amer 44 mL/min (>60); Globulin 3.2 g/dL (2.2-4.2); Glucose 147 mg/dL (74-106); High Density Lipoprotein 61 mg/dL; Phosphorus 3.2 mg/dL (2.5-4.9); Potassium 4.2 mmol/L (3.5-5.1); Protein, Total 6.4 g/dL (6.4-8.2); Sodium Level 139 mmol/L (136-145); Triglycerides 226 mg/dL; Very Low Density Lipoprotein 45 mg/dL (5-40)
== END | disposition home or self-care (01) ==
LOC: LAB 13:55
PROVIDERS: PCP Family Medicine; Referring Provider Internal Medicine Nephrology; Visit Provider Internal Medicine Nephrology
DX: N18.32 Chronic kidney disease, stage 3b (principal); N25.81 Secondary hyperparathyroidism of renal origin
CPT/HCPCS: 36415; 80048; 80061; 80076; 82306; 82570; 83970; 84100; 84156; 85027

== ENCOUNTER → 2022-01-30 | Outpatient (CLI) | payer MEDICARE, OTHER, SELFPAY ==
[2022-01-30 11:15] VITALS: PULSE 61; PULSE 67; PULSE 72; PULSE 74; PULSE 75; PULSE 76; PULSE 77; O2SAT 100; O2SAT 97; O2SAT 98; O2SAT 99
--- NOTE | 2022-01-31 05:38 | PCM.PSN.6M ---
PSN 6 Minute Walk Test 6 Minute Walk Test 6 Minute Walk Test: 6 Minute Walk Test PSN:6-Minute Walk Test Start: 01/30/22 11:19 Freq: Status: Active Protocol: [id number].[id number] Document 01/30/22 11:15 HJ (Rec: 01/30/22 11:21 [id number]) 6 Minute Walk Test Date Performed 01/30/22 Time Performed 11:15 Height 4 ft 11 in Weight: 61.689 kg Weight in Pounds 136.[address]: Kandy Corbin METAL MODEL BUILDER FIO2 (% Oxygen) 21 Assistive device used: None Pre-test Oxygen Delivery Method Room Air Pulse Ox (%) 98 Pulse Rate (60-100 beats/min) 61 Dyspnea Andrew Scale (0-10) 0 Exertion Andrew Scale (6-20) 6 1st minute Oxygen Delivery Method Room Air Pulse Ox (%) 98 Pulse Rate (60-100 beats/min) 72 2nd minute Oxygen Delivery Method Room Air Pulse Ox (%) 100 Pulse Rate (60-100 beats/min) 74 3rd minute Oxygen Delivery Method Room Air Pulse Ox (%) 97 Pulse Rate (60-100 beats/min) 75 4th minute Oxygen Delivery Method Room Air Pulse Ox (%) 97 Pulse Rate (60-100 beats/min) 76 5th minute Oxygen Delivery Method Room Air Pulse Ox (%) 98 Pulse Rate (60-100 beats/min) 77 6th minute Oxygen Delivery Method Room Air Pulse Ox (%) 97 Pulse Rate (60-100 beats/min) 76 Post-test Oxygen Delivery Method Room Air Pulse Ox (%) 99 Pulse Rate (60-100 beats/min) 67 Dyspnea Andrew Scale (0-10) 2 Exertion Andrew Scale (6-20) 6 Full Laps Walked 15 Partial Lap, Number of Tiles Walked 0 Total Distance Walked (ft) 885 Interpretation Interpretation: The patient was able to ambulate 885 feet over the course of 6 minutes on room air with no assistive devices or breaks. The patient experienced no significant desaturation or tachycardia during testing. These findings are consistent with a musculoskeletal limitation exercise tolerance. Recommendations Recommendations: No supplemental oxygen is indicated at this time.
== END | disposition home or self-care (01) ==
LOC: PSN 10:56
PROVIDERS: PCP Family Medicine; Visit Provider Nurse Practitioner Acute Care
DX: J96.90 Respiratory failure, unspecified, unspecified whether with hypoxia or hypercapnia (principal)
CPT/HCPCS: 94618

== ENCOUNTER → 2022-07-15 | Outpatient (CLI) | payer MEDICARE, OTHER, SELFPAY ==
--- NOTE | 2022-07-15 14:01 | BI_ITS ---
MAMMOGRAPHY - UNILATERAL SCREENING: RIGHT BREAST REASON FOR EXAM: Female, 76 years old. Routine annual screening examination (unilateral). PERTINENT HISTORY: Personal history of breast cancer. Prior left mastectomy. TECHNIQUE: Digital unilateral breast iván (3D mammographic acquisition) in the CC and MLO projections. 2-D mediolateral oblique (MLO) and craniocaudad (CC) views of both breasts were obtained. CAD: Full Field Digital Mammography with Computer Added Detection was performed. COMPARISON: Comparison is made with prior study dated 06/17/2019 and 11/10/2018. FINDINGS: Breast Composition: The breasts are heterogeneously dense, which may obscure small masses. There is a 3 cm x 2.1 cm well-defined nodule in the upper lateral aspect of the right breast. Correlation with ultrasound is recommended. Stable secretory calcification. No other significant abnormalities are identified. BI/SCREEN MAMM (CAD) W/IVÁN UNI R IMPRESSION: 3 cm x 2.1 cm well-defined nodule in the upper lateral aspect of the right breast as described. Correlation with ultrasound is recommended. ASSESSMENT CATEGORY: BIRADS Category 0: Incomplete. Need additional imaging evaluation. A letter regarding these results will be sent to the patient by the facility within 30 days. Approximately 10% of breast cancers are not detected by mammography. A normal mammogram should not delay biopsy of a clinically suspicious abnormality. [id number] Electronically Signed: Kenneth Dominguez MD at 15:08 EST ,
[2022-07-15 15:36] LABS: Anion Gap 9 (5-15); BUN 22 mg/dL (7-18); BUN/Creat Ratio 11.8 RATIO (10-20); Calcium,Total 9.9 mg/dL (8.5-10.1); Chloride 99 mmol/L (98-107); Creatinine, Serum 1.86 mg/dL (0.55-1.02); EST Glomerular Filtration Rate 28 mL/min (>60); Est Glom Filt Rate - Afr Amer 34 mL/min (>60); Glucose 84 mg/dL (74-106); Potassium 4.3 mmol/L (3.5-5.1); Protein, Urine (Random) 15.6 mg/dL (<11.9); Protein:Creat Ratio 101 mg/g CRE (0-200); Sodium Level 140 mmol/L (136-145)
== END | disposition home or self-care (01) ==
PROVIDERS: Internal Medicine Nephrology; PCP Family Medicine; Referring Provider Internal Medicine Hematology & Oncology; Visit Provider Internal Medicine Hematology & Oncology
DX: Z12.31 Encounter for screening mammogram for malignant neoplasm of breast (principal); N18.32 Chronic kidney disease, stage 3b; I12.9 Hypertensive chronic kidney disease with stage 1 through stage 4 chronic kidney disease, or unspecified chronic kidney disease
CPT/HCPCS: 36415; 77063; 77067; 80048; 82570; 84156

== ENCOUNTER → 2022-07-17 | Outpatient (CLI) | payer MEDICARE, OTHER, SELFPAY ==
--- NOTE | 2022-07-17 12:54 | US_ITS ---
STUDY: ULTRASOUND BREAST - RIGHT REASON FOR EXAM: Female, 76 years old. Abnormal screening mammogram. TECHNIQUE: Axial and longitudinal images of the RIGHT breast were performed with a high resolution ultrasound transducer. # OF IMAGES: 42 COMPARISON: Comparison is made with prior mammogram dated 07/15/2022. FINDINGS: RIGHT Breast: The upper outer quadrant of the right breast was examined with ultrasound. There is heterogeneously dense fibroglandular tissue. No sonographic abnormality is seen. US/Breast Limited Unilateral IMPRESSION: No sonographic abnormality is seen. ASSESSMENT CATEGORY: BIRADS Category 1: Negative. A letter regarding these results will be sent to the patient by the facility within 30 days. Electronically Signed: Kenneth Dominguez MD at 15:05 EST ,
== END | disposition home or self-care (01) ==
LOC: OPUS 12:51
PROVIDERS: PCP Family Medicine; Visit Provider Internal Medicine Hematology & Oncology
DX: R92.8 Other abnormal and inconclusive findings on diagnostic imaging of breast (principal)
CPT/HCPCS: 76642

== ENCOUNTER → 2022-11-11 | Outpatient (CLI) | payer MEDICARE, OTHER, SELFPAY | END | disposition home or self-care (01) | LOC: ONC 08:19 | PROVIDERS: PCP Family Medicine; Referring Provider Internal Medicine Hematology & Oncology; Visit Provider Internal Medicine Hematology & Oncology | DX: C50.812 Malignant neoplasm of overlapping sites of left female breast (principal); Z17.0 Estrogen receptor positive status [ER+]; E83.52 Hypercalcemia ==

== ENCOUNTER → 2022-11-18 | Outpatient (CLI) | payer MEDICARE, OTHER, SELFPAY ==
--- NOTE | 2022-11-18 10:30 | PET_ITS ---
EXAMINATION: FDG PET-CT INDICATIONS: A 77-year-old female with history of primary breast carcinoma presenting for restaging examination. COMPARISON EXAMINATION: FDG PET-CT report dated 09/11/21 TECHNIQUE: Following the intravenous administration of 12.63 mCi of F-18 deoxyglucose via the right hand, multiplanar image acquisitions of the neck, chest, abdomen and pelvis to level of mid thigh, obtained at one hour post radiopharmaceutical administration contemporaneously interpreted with the current CT of the neck, chest, abdomen and pelvis, to level of mid thigh, dated 11/18/22 via coregistration and FDG PET-CT report dated 09/11/21 reveals: BLOOD GLUCOSE LEVEL:?? 119 mg/dl?HEIGHT:?59 inches?WEIGHT: 137 lbs. FINDINGS: Head/Neck: There is no evidence of abnormal increased glucose metabolism in the pharyngeal mucosal space, parapharyngeal space, bilateral-lateral and anterior neck, hypopharynx and distribution of the laryngeal structures. The visualized portion of the cerebral cortical-subcortical structures demonstrate symmetric and preserved glucose metabolism. CHEST: There is no quantitative scintigraphic evidence of abnormal increased glucose metabolism within the context of the bilateral hemithorax pulmonary parenchyma, right and left hemithorax pleural interface, mediastinal structures and right-left thoracic perihilum. Prominent tracer uptake is noted in the thoracic and abdominal aorta commensurate with activated leukocytes associated with atherosclerotic plaque formation. Pertinent chest CT findings are as follows. There is atherosclerotic calcification defined in the thoracic aorta without evidence of dilatation-aneurysm formation. Coronary arterial calcification is observed. There are no parenchymal densities-nodules defined in the right and left hemithorax with quantitatively significant increased radiopharmaceutical concentration. Surgical clips remain apparent in the left retropectoral and axillary regions. The left breast remains surgically absent. Abdomen/Pelvis: Normal physiologic distribution of the radiopharmaceutical is apparent in the hepatic and splenic parenchyma, both renal units, bladder and visualized intestinal tract. Prominent uptake defined in the left hemipelvis appears to represent ureteric physiologic activity. Pertinent abdomen and pelvis CT findings are as follows. There is atherosclerotic calcification defined in the abdominal aorta without evidence of dilatation-aneurysm formation. Pelvic arterial calcification is observed. Calcification is defined in the bilateral adnexal region associated with the uterus without evidence of increased tracer uptake. Bilateral inguinal soft tissue densities are ametabolic. Calcified phlebolith formation is noted of the left lower hemipelvis. Skeletal: Degenerative changes are noted in the cervical, thoracic and lumbar spine without evidence of increased radiopharmaceutical concentration. Vertebroplasty appears evident in the upper thoracic spine. PET/PET/CT Tumor Base -Thigh Subs IMPRESSION: 1. NEGATIVE EXAMINATION. There is no definitive quantitative scintigraphic evidence of recurrent/viable neoplasm. 2. Overall, compared to the prior FDG PET-CT study dated 09/11/21, there is no significant interval change. Electronic Signature Alphonso Baird D.O. Accurate Quantification of SUVs for this report are calculated using the exclusive [employer]. (U.S. Patent No. [id number] [id number] 983 B2 [phone] [place] patent [phone]). Standardization and correction of the FDG SUV metric via [employer] technology allow for vendor non-specific objective quantitative examination comparison and optimization of the sensitivity and specificity of the FDG PET-CT examination. Electronically Signed: Alphonso Baird, at 22:48 EDT ,
== END | disposition home or self-care (01) ==
LOC: ONC 10:18
PROVIDERS: PCP Family Medicine; Referring Provider Internal Medicine Hematology & Oncology; Visit Provider Internal Medicine Hematology & Oncology
DX: E83.52 Hypercalcemia (principal); C79.51 Secondary malignant neoplasm of bone; C50.812 Malignant neoplasm of overlapping sites of left female breast; Z17.0 Estrogen receptor positive status [ER+]
CPT/HCPCS: 78815; A9552

== ENCOUNTER → 2023-01-12 | Outpatient (CLI) | payer MEDICARE, OTHER, SELFPAY ==
[2023-01-12 17:50] LABS: Hematocrit 31.2 % (37-47); Hemoglobin 10.4 g/dL (12.0-15.0); Mean Corp Hgb Conc 33.3 g/dL (32-36); Mean Corpuscular Hgb 35.9 pg (27.0-32.0); Mean Corpuscular Volume 107.6 fL (81-99); Mean Platelet Vol. 10.3 fl (6.2-12.0); Platelet Count 154 K/mm3 (150-450); RBC Distribution Width CV 12.4 % (11.6-14.6); RBC Distribution Width SD 49.4 fl (35.1-43.9); White Blood Count 4.2 K/mm3 (4.4-11.0)
[2023-01-12 18:16] LABS: Protein, Urine (Random) 20.3 mg/dL (<11.9); Protein:Creat Ratio 275 mg/g CRE (0-200)
[2023-01-12 18:25] LABS: Vitamin D,25 Hydroxy 54.6 ng/mL
[2023-01-12 18:29] LABS: Albumin, Serum 3.3 g/dL (3.2-5.0); BUN 24 mg/dL (7-18); BUN/Creat Ratio 10.9 RATIO (10-20); Calcium,Total 10.2 mg/dL (8.5-10.1); Chloride 99 mmol/L (98-107); Creatinine, Serum 2.21 mg/dL (0.55-1.02); EST Glomerular Filtration Rate 23 mL/min (>60); Est Glom Filt Rate - Afr Amer 28 mL/min (>60); Glucose 164 mg/dL (74-106); Phosphorus 2.8 mg/dL (2.5-4.9); Sodium Level 136 mmol/L (136-145)
[2023-01-13 08:24] LABS: PTHIN 28.5 pg/mL (18.4-80.1)
== END | disposition home or self-care (01) ==
LOC: MTLAB 14:54
PROVIDERS: PCP Family Medicine; Referring Provider Internal Medicine Nephrology; Visit Provider Internal Medicine Nephrology
DX: N18.32 Chronic kidney disease, stage 3b (principal); R80.9 Proteinuria, unspecified
CPT/HCPCS: 36415; 80069; 82043; 82306; 82570; 83970; 84156; 85027

== ENCOUNTER → 2023-07-14 | Outpatient (CLI) | payer MEDICARE, OTHER, SELFPAY ==
--- NOTE | 2023-07-14 10:30 | PET_ITS ---
EXAMINATION: FDG PET-CT INDICATIONS: A 77-year-old female with history of primary breast carcinoma presenting for restaging examination. COMPARISON EXAMINATION: FDG PET study dated 11/18/22 TECHNIQUE: Following the intravenous administration of 14.85 mCi of F-18 deoxyglucose via the right hand, multiplanar image acquisitions of the neck, chest, abdomen and pelvis to level of mid thigh, obtained at one hour post radiopharmaceutical administration contemporaneously interpreted with the current CT of the neck, chest, abdomen and pelvis, to level of mid thigh, dated 07/14/23 via coregistration and FDG PET study dated 11/18/22 reveals: BLOOD GLUCOSE LEVEL:?? 164 mg/dl?HEIGHT:?59 inches?WEIGHT: 136 lbs. FINDINGS: Head/Neck: There is no evidence of abnormal increased glucose metabolism in the pharyngeal mucosal space, parapharyngeal space, bilateral-lateral and anterior neck, hypopharynx and distribution of the laryngeal structures. The visualized portion of the cerebral cortical-subcortical structures demonstrate symmetric and preserved glucose metabolism. CHEST: There is no quantitative scintigraphic evidence of abnormal increased glucose metabolism within the context of the bilateral hemithorax pulmonary parenchyma, right and left hemithorax pleural interface, mediastinal structures and right-left thoracic perihilum. Previously defined morphologic-anatomic changes noted on review of CT of the chest dated 11/18/22, are essentially unchanged on the current examination. Abdomen/Pelvis: Normal physiologic distribution of the radiopharmaceutical is apparent in the hepatic and splenic parenchyma, both renal units, bladder and visualized intestinal tract. Review of CT of the abdomen and pelvis dated 11/18/22 demonstrates no significant interval change. MUSCULOSkeletal: Profound thoracic paravertebral muscle tension artifact is noted to the left and right of the midline. Degenerative changes are noted in the cervical, thoracic and lumbar spine without evidence of increased radiopharmaceutical concentration. PET/PET/CT Tumor Base -Thigh Subs IMPRESSION: 1. NEGATIVE EXAMINATION. There is no definitive quantitative scintigraphic evidence of recurrent/viable neoplasm. 2. Overall, compared to the prior FDG PET-CT study dated 11/18/22, there is current and continued absence of defined viable neoplastic disease. Electronic Signature Alphonso Baird D.O. Accurate Quantification of SUVs for this report are calculated using the exclusive [employer], (U.S. Patent No. [id number] [id number] 983 B2 [phone] patent [phone] ). Standardization and correction of the FDG SUV metric exclusively available with [employer] intellectual property, allow for vendor non-specific objective quantitative sequential FDG PET-CT comparison and otherwise unobtainable optimization of the sensitivity and specificity of the examination. [email or web address] Electronically Signed: Alphonso Baird DO at 9:31 EST ,
--- OUTSIDE RECORDS SUMMARY | 2023-07-14 11:08 | XMS RPT_ITS | CCD ---
Author Name Unknown Address [address] [place] [address] Organization [facility] Care Team Providers Care Director Asset Name Role Phone Malys DO, Celina A Primary Care Provider Eloy RÍOS MD, Daesung Unavailable Doup RN, Shankar Unavailable Unavailable Malys DO, Celina A Primary Care Provider [phone] Eloy RÍOS MD, Daesung Unavailable Doup RN, Shankar Unavailable Unavailable Masci DO, Cheko A Unavailable July Boyle Unavailable Unavailabl e Malys DO, Celina A Primary Care Provider [phone] Eloy RÍOS MD, Daesung Unavailable Doup RN, Shankar Unavailable Unavailable Masci DO, Cheko A Unavailable Tobias Boyleantha Unavailable Unavailabl e Doup RN, Shankar Unavailable Unavailable Bam Hammond Unavailable Bam Hammond MD Unavailable MALYS, CELINA A Primary Care Unavailable MASCI, CHEKO A Referring Unavailable MALYS, CELINA A Primary Care Unavailable MASCI, CHEKO A Referring Unavailable MALYS, CELINA A Primary Care Unavailable MALYS, CELINA A Primary Care Unavailable MASCI, CHEKO A Referring Unavailable MASCI, CHEKO A Referring Unavailable MALYS, CELINA A Primary Care Unavailable MALYS, CELINA A Primary Care Unavailable MASCI, CHEKO A Referring Unavailable MALYS, CELINA A Primary Care Unavailable MASCI, CHEKO A Referring Unavailable MASCI, CHEKO A Referring Unavailable MALYS, CELINA A Primary Care Unavailable MASCI, CHEKO A Referring Unavailable MASCI, CHEKO A Attending Unavailable MALYS, CELINA A Primary Care Unavailable MALYS, CELINA A Primary Care Unavailable MASCI, CHEKO A Referring Unavailable MALYS, CELINA A Primary Care Unavailable MASCI, CHEKO A Referring Unavailable MALYS, CELINA A Primary Care Unavailable MASCI, CHEKO A Referring Unavailable MALYS, CELINA A Primary Care Unavailable MASCI, CHEKO A Attending Unavailable MASCI, CHEKO A Referring Unavailable JENNIFER, JERONIMO R Attending Unavailable MALYS, CELINA A Primary Care Unavailable MALYS, CELINA A Primary Care Unavailable MASCI, CHEKO A Referring Unavailable MALYS, CELINA A Primary Care Unavailable MASCI, CHEKO A Referring Unavailable MALYS, CELINA A Primary Care Unavailable MASCI, CHEKO A Referring Unavailable MASCI, CHEKO A Referring Unavailable MALYS, CELINA A Primary Care Unavailable MALYS, CELINA A Primary Care Unavailable MASCI, CHEKO A Referring Unavailable MALYS, CELINA A Primary Care Unavailable MASCI, CHEKO A Referring Unavailable MALYS, CELINA A Primary Care Unavailable MASCI, CHEKO A Referring Unavailable MALYS, CELINA A Primary Care Unavailable MASCI, CHEKO A Referring Unavailable MASCI, CHEKO A Referring Unavailable MALYS, CELINA A Primary Care Unavailable MASCI, CHEKO A Referring Unavailable MALYS, CELINA A Primary Care Unavailable MASCI, CHEKO A Attending Unavailable MALYS, CELINA A Primary Care Unavailable MASCI, CHEKO A Referring Unavailable MASCI, CHEKO A Attending Unavailable MALYS, CELINA A Primary Care Unavailable MASCI, CHEKO A Referring Unavailable MALYS, CELINA A Primary Care Unavailable MASCI, CHEKO A Referring Unavailable MALYS, CELINA A Primary Care Unavailable JENNIFER, JERONIMO R Attending Unavailable MALYS, CELINA A Primary Care Unavailable MASCI, CHEKO A Referring Unavailable Allergies Allergy Classification Reported Allergen(s) Allergy Type Date of Onset Reaction(s) Facility (20 sources) Codeine; Translations: [CODEINE] [facility] HYDROcodone; Translations: [HYDROCODONE] Drug Allergy 08-22-2014 [facility] (20 sources) Meperidine; Translations: [MEPERIDINE (PF)] Drug Allergy 05-01-2010 GI [facility] (8 sources) Acetaminophen / HYDROcodone; Translations: [HYDROCODONE-ACETA MINOPHEN] Drug Allergy 03-04-2023 Unknown [facility] Medications Current Medications Medication Drug Class(es) Dates Sig (Normalized) Sig (Original) enteric contrast (will be provided with radiology test) (1 source) Start: 12-03-2021 End: 12-03-2021 take 1 dose by mouth once, then take 1 dose by mouth once enteric contrast (will be provided with radiology test) Indications: Malignant 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, estrogen receptor positive (HCC) , Bone metastases (HCC) Take 1 Each by mouth one time only for [address] Chest ABD/PEL WO Routine order Administer, As Directed One Time Only, via Oral, Rectal, both Oral and Rectal, Enteric Tube, Stoma or Indwelling Catheter, Enteric Contrast as designated per enteric contrast guidelines 1 Each 0 12/03/2021 12/03/2021 Active Completed/Discontinued Medications Medication Drug Class(es) Dates Sig (Normalized) Sig (Original) abemaciclib 50 mg oral tablet (20 sources) Start: 10-29-2022 End: 11-28-2022 take 1 tablet by mouth twice daily abemaciclib (VERZENIO) 50 mg tablet TAKE 1 TABLET BY MOUTH TWICE DAILY 56 tablet 5 11/28/2022 Active Problems Active Problems Problem Classification Problem Date Documented Da te Episodic/Chronic Blindness and vision defects (1 source) Bilateral irregular astigmatism of eyes; Translations: [Irregular astigmatism, bilateral] 03-04-2023 Episodic Cancer of breast (20 sources) Overlapping malignant neoplasm of female breast; Translations: [Malignant neoplasm of overlapping sites of left female breast] Onset: 07-07-2019 07-07-2019 Chronic Cataract (1 source) Artificial lens present; Translations: [Presence of intraocular lens] 03-04-2023 Chronic Chronic kidney disease (20 sources) Chronic kidney disease stage 3; Translations: [CKD (chronic kidney disease) stage 3, GFR 30-59 ml/min] Onset: 06-06-2015 06-06-2015 Chronic Chronic kidney disease (1 source) Chronic kidney disease; Translations: [Stage 3 chronic kidney disease, unspecified whether stage 3a or 3b CKD (HCC)] Onset: 06-06-2015 Coronary atherosclerosis and other heart disease (20 sources) Coronary arteriosclerosis; Translations: [Atherosclerotic heart disease of campo coronary artery without angina pectoris] Onset: 05-01-2010 06-10-2021 Chronic Diabetes mellitus with complications (20 sources) Type 1 diabetes mellitus; Translations: [Type 1 diabetes mellitus with other diabetic kidney complication] Onset: 05-01-1977 09-12-2019 Chronic Diabetes mellitus without complication (20 sources) Patient encounter status; Translations: [Encounter for fitting and adjustment of insulin pump] Onset: 11-04-2010 11-04-2010 Chronic Disorders of lipid metabolism (20 sources) Hyperlipidemia; Translations: [Hyperlipidemia, unspecified] Onset: 05-01-2010 10-18-2014 Chronic Essential hypertension (20 sources) Hypertensive disorder; Translations: [Essential (primary) hypertension] Onset: 05-01-2010 05-01-2010 Chronic Genitourinary symptoms and ill-defined conditions (1 source) Dysuria; Translations: [Dysuria] Episodic Nutritional deficiencies (20 sources) Vitamin D deficiency; Translations: [Vitamin D deficiency, unspecified] Onset: 05-05-2010 06-10-2021 Chronic Other eye disorders (1 source) Epithelial basement membrane dystrophy; Translations: [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] 03-04-2023 Episodic Other eye disorders (1 source) Tear film insufficiency; Translations: [Dry eye syndrome of bilateral lacrimal glands] 03-04-2023 Episodic Other hematologic conditions (1 source) Macrocytosis; Translations: [Other specified diseases of blood and blood-forming organs] 01-21-2023 Chronic Other hematologic conditions (1 source) Other specified diseases of blood and blood-forming organs; Translations: [Macrocytosis] Onset: 01-21-2023 Chronic Other nutritional; endocrine; and metabolic disorders (20 sources) Obese class I; Translations: [Obesity, unspecified] Onset: 04-19-2018 04-19-2018 Chronic Other nutritional; endocrine; and metabolic disorders (1 source) Hypercalcemia; Translations: [Hypercalcemia] Onset: 10-29-2022 Chronic Other screening for suspected conditions (not mental disorders or infectious disease) (2 sources) Patient encounter status; Translations: [Encounter for screening mammogram for malignant neoplasm of breast] Episodic Retinal detachments; defects; vascular occlusion; and retinopathy (1 source) Epiretinal membrane of right eye; Translations: [Puckering of macula, right eye] 03-04-2023 Chronic Secondary malignancies (20 sources) Secondary malignant neoplasm of bone; Translations: [Secondary malignant neoplasm of bone] Onset: 09-28-2019 09-28-2019 Chronic Secondary malignancies (3 sources) Secondary malignant neoplasm of bone; Translations: [Malignant neoplasm metastatic to bone (HCC)] Onset: 09-28-2019 Chronic Thyroid disorders (20 sources) Acquired hypothyroidism; Translations: [Hypothyroidism, unspecified] Onset: 04-01-2017 04-01-2017 Chronic Past or Other Problems Problem Classification Problem Date Documented Da te Episodic/Chronic Acute and unspecified renal failure (2 sources) Acute injury of kidney; Translations: [Acute kidney failure, unspecified] Onset: 03-18-2023 03-09-2023 Episodic Fluid and electrolyte disorders (20 sources) Dehydration; Translations: [Dehydration] Onset: 12-12-2019 12-12-2019 Episodic Malaise and fatigue (4 sources) Malaise and fatigue; Translations: [Other malaise] Onset: 03-18-2023 01-21-2023 Episodic Nutritional deficiencies (1 source) Deficiency of other specified B group vitamins; Translations: [Low serum vitamin B12] Onset: 01-23-2023 Episodic Other bone disease and musculoskeletal deformities (20 sources) Osteopenia; Translations: [Other specified disorders of bone density and structure, unspecified site] Onset: 05-01-2010 06-26-2016 Episodic Residual codes; unclassified (2 sources) Estrogen receptor positive status [ER+]; Translations: [Malignant 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, estrogen receptor positive (HCC) (HCC)] Onset: 07-07-2019 Episodic Results Test Name Value Interpretation Reference Range Facil ity Vital Signs Date Time Vital Sign Value Performing Clinician Larry elam 01-21-2023 11:04-0400 Body height 151.5 cm Cheko [employer] Work Phone: [facility] 01-21-2023 11:04-040 Body temperature 97.11 [degF] Cheko Chooos DO Work Phone: [facility] 01-21-2023 11:04-0400 Body weight 60.78 kg Cheko [employer] Work Phone: [facility] 01-21-2023 11:04-0400 Diastolic blood pressure 77 mm[Hg] Cheko [employer] Work Phone: [facility] 01-21-2023 11:04-0400 Heart rate 62 /min Cheko Masci DO Work Phone: [facility] 01-21-2023 11:04-0400 SaO2% (BldA) [Mass fraction] 98 % Cheko Masci DO Work Phone: [facility] 01-21-2023 11:04-0400 Systolic blood pressure 139 mm[Hg] Cheko Masci DO Work Phone: [facility] 08-06-2022 14:41-0500 Body temperature 97.11 [degF] Injection Wstr Work Phone: [facility] 08-06-2022 14:41-0500 Body weight 62.6 kg Injection Wstr Work Phone: [facility] 08-06-2022 14:41-0500 Diastolic blood pressure 56 mm[Hg] Injection Wstr Work Phone: [facility] 08-06-2022 14:41-0500 Heart rate 69 /min Injection Wstr Work Phone: [facility] 08-06-2022 14:41-0500 Systolic blood pressure 105 mm[Hg] Injection Wstr Work Phone: [facility] 07-07-2022 15:34-0500 Body temperature 96.8 [degF] Cheko Masci DO Work Phone: [facility] 07-07-2022 15:34-0500 Body weight 63.28 kg Cheko Masci DO Work Phone: [facility] 07-07-2022 15:34-0500 Diastolic blood pressure 83 mm[Hg] Cheko Masci DO Work Phone: [facility] 07-07-2022 15:34-0500 Heart rate 62 /min Cheko Masci DO Work Phone: [facility] 07-07-2022 15:34-0500 SaO2% (BldA) [Mass fraction] 100 % Cheko Masci DO Work Phone: [facility] 07-07-2022 15:34-0500 Systolic blood pressure 158 mm[Hg] Cheko Masci DO Work Phone: [facility] 06-05-2022 10:33-0500 Body temperature 96.91 [degF] Injection Wstr Work Phone: [facility] 06-05-2022 10:33-0500 Body weight 62.14 kg Injection Wstr Work Phone: [facility] 06-05-2022 10:33-0500 Diastolic blood pressure 70 mm[Hg] Injection Wstr Work Phone: [facility] 06-05-2022 10:33-0500 Heart rate 76 /min Injection Wstr Work Phone: [facility] 06-05-2022 10:33-0500 Systolic blood pressure 120 mm[Hg] Injection Wstr Work Phone: [facility] 12-19-2021 09:35-0400 Body temperature 97 [degF] Injection Wstr Work Phone: [facility] 12-19-2021 09:35-0400 Body weight 62.14 kg Injection Wstr Work Phone: [facility] 12-19-2021 09:35-0400 Diastolic blood pressure 74 mm[Hg] Injection Wstr Work Phone: [facility] 12-19-2021 09:35-0400 Heart rate 75 /min Injection Wstr Work Phone: [facility] 12-19-2021 09:35-0400 SaO2% (BldA) [Mass fraction] 98 % Injection Wstr Work Phone: [facility] 12-19-2021 09:35-0400 Systolic blood pressure 127 mm[Hg] Injection Wstr Work Phone: [facility] 12-03-2021 09:29-0400 Body temperature 96.21 [degF] Cheko Stanford DO Work Phone: [facility] 12-03-2021 09:29-0400 Body weight 61.24 kg Cheko Stanford DO Work Phone: [facility] 12-03-2021 09:29-0400 Diastolic blood pressure 73 mm[Hg] Cheko Stanford DO Work Phone: [facility] 12-03-2021 09:29-0400 Heart rate 69 /min Cheko Masci DO Work Phone: [facility] 12-03-2021 09:29-0400 SaO2% (BldA) [Mass fraction] 96 % Cheko Masci DO Work Phone: [facility] 12-03-2021 09:29-0400 Systolic blood pressure 138 mm[Hg] Cheko Masci DO Work Phone: [facility] 11-20-2021 16:15-0400 Body temperature 97.11 [degF] Cheko Masci DO Work Phone: [facility] 11-20-2021 16:15-0400 Diastolic blood pressure 75 mm[Hg] Cheko Masci DO Work Phone: [facility] 11-20-2021 16:15-0400 Heart rate 71 /min Cheko Masci DO Work Phone: [facility] 11-20-2021 16:15-0400 SaO2% (BldA) [Mass fraction] 100 % Cheko Masci DO Work Phone: [facility] 11-20-2021 16:15-0400 Systolic blood pressure 148 mm[Hg] Cheko Masci DO Work Phone: [facility] 09-19-2021 08:58-0400 Body temperature 96.6 [degF] Injection Wstr Work Phone: [facility] 09-19-2021 08:58-0400 Body weight 64.86 kg Injection Wstr Work Phone: [facility] 09-19-2021 08:58-0400 Diastolic blood pressure 78 mm[Hg] Injection Wstr Work Phone: [facility] 09-19-2021 08:58-0400 Heart rate 68 /min Injection Wstr Work Phone: [facility] 09-19-2021 08:58-0400 Systolic blood pressure 140 mm[Hg] Injection Wstr Work Phone: [facility] Encounters Encounter Date Encounter Type Care Provider Facility Start: 06-19-2023 End: 06-20-2023 ambulatory CELINA A JOHNIEYS Facility:[facility] Start: 06-03-2023 End: 06-03-2023 ambulatory JERONIMO RODRIGUEZ Facility:[facility] Start: 05-22-2023 End: 05-23-2023 ambulatory CELINA A MALYS Facility:[facility] Start: 04-24-2023 End: 04-24-2023 ambulatory CELINA A MALYS Facility:[facility] Start: 04-22-2023 End: 04-22-2023 ambulatory CELINA A MALYS Facility:[facility] Start: 04-22-2023 Telephone encounter Cheko walker DO Work Phone: Hematology/Oncology Procedures Date Procedure Procedure Detail Performing Clinician Start: 04-16-2023 Bone &/joint imaging whole body Cheko Stanford DO Work Phone: Start: 03-04-2023 Clsr lacrimal punctu m plug each Jeronimo Rodriguez MD Work Phone: Start: 07-14-2022 Bone &/joint imaging whole body Cheko Stanford DO Work Phone: Start: 07-07-2022 Radex spine lumbosac ral 2/3 views Cheko Stanford DO Work Phone: Start: 11-28-2021 Bone &/joint imaging whole body Cheko Stanford DO Work Phone: Start: 02-08-2021 Adult depression scr eening assessment Cheko Stanford DO Work Phone: Plan of Treatment Date Care Activity Detail Author Start: 04-16-2024 Hemoglobin/Hematocrit Hemoglobin/Hem [facility] Start: 04-16-2024 Serum Creatinine Serum Creatinine [facility] Start: 03-18-2024 Hemoglobin/Hematocrit Hemoglobin/Hem [facility] Start: 03-18-2024 Serum Creatinine Serum Creatinine [facility] Start: 03-09-2024 Serum Creatinine Serum Creatinine [facility] Start: 02-19-2024 HEMOGLOBIN/HEMATOCRIT HEMOGLOBIN/HEM [facility] Start: 02-19-2024 SERUM CREATININE SERUM CREATININE [facility] Start: 01-22-2024 HEMOGLOBIN/HEMATOCRIT HEMOGLOBIN/HEM ATOCRIT [facility] Start: 01-22-2024 SERUM CREATININE SERUM CREATININE [facility] Start: 10-30-2023 HEMOGLOBIN/HEMATOCRIT HEMOGLOBIN/HEM ATOCRIT [facility] Start: 10-30-2023 SERUM CREATININE SERUM CREATININE [facility] Start: 08-06-2023 [facility]: 08-06-2023 SERUM CREATININE SERUM CREATININE [facility] Start: 07-07-2023 HEMOGLOBIN/HEMATOCRIT HEMOGLOBIN/HEM ATOCRIT [facility] Start: 07-07-2023 SERUM CREATININE SERUM CREATININE [facility] Start: 06-30-2023 HEMOGLOBIN/HEMATOCRIT HEMOGLOBIN/HEM ATOCRIT [facility] Start: 06-30-2023 SERUM CREATININE SERUM CREATININE [facility] Start: 06-23-2023 [facility] Start: 06-23-2023 SERUM CREATININE SERUM CREATININE [facility] Start: 06-17-2023 HEMOGLOBIN/HEMATOCRIT HEMOGLOBIN/HEM ATOCRIT [facility] Start: 06-17-2023 SERUM CREATININE SERUM CREATININE [facility] Start: 06-05-2023 [facility] Start: 06-05-2023 SERUM CREATININE SERUM CREATININE [facility] Start: 05-26-2023 [facility] Start: 05-26-2023 SERUM CREATININE SERUM CREATININE [facility] Start: 05-19-2023 [facility] Start: 05-19-2023 SERUM CREATININE SERUM CREATININE [facility] Start: 05-12-2023 HEMOGLOBIN/HEMATOCRIT HEMOGLOBIN/HEM ATOCRIT [facility] Start: 05-12-2023 SERUM CREATININE SERUM CREATININE [facility] Start: 04-28-2023 [facility] Start: 04-28-2023 SERUM CREATININE SERUM CREATININE [facility] Start: 04-21-2023 HEMOGLOBIN/HEMATOCRIT HEMOGLOBIN/HEM ATOCRIT [facility] Start: 04-21-2023 SERUM CREATININE SERUM CREATININE [facility] Start: 03-10-2023 [facility] Start: 03-10-2023 SERUM CREATININE SERUM CREATININE [facility] Start: 02-23-2023 End: 04-25-2023 Basic metabolic 2000 panel - Serum or Plasma BASIC METABOLIC PNL Lab STAT Primary hypertension Expected: 02/23/2023, Expires: 04/25/2023 [facility] Work Phone: Immunizations Immunization Date Immunization Notes Care Provider [facility] 04-07-2022 influenza virus vacc ine, unspecified formulation Jeronimo Rodriguez MD Work Phone: [facility] 04-05-2021 influenza, high-dose , quadrivalent vaccine (FLUZONE HIGH DOSE QUADRIVALENT) Cheko Aubreeronnie DO Work Phone: [facility] 02-14-2021 COVID-19 vaccine, fu ll dose (MODERNA) Cheko Aubreeronnie DO Work Phone: [facility] 08-29-2020 COVID-19 vaccine, fu ll dose (MODERNA) Cheko Aubreeronnie DO Work Phone: [facility] 08-02-2020 COVID-19 vaccine, fu ll dose (MODERNA) Cheko Aubreeronnie DO Work Phone: [facility] 03-23-2020 influenza, high-dose , quadrivalent vaccine (FLUZONE HIGH DOSE QUADRIVALENT) Cheko Stanford DO Work Phone: [facility] 03-31-2007 pneumococcal polysaccharide vaccine, 23 valent Cheko Abdoulaye DO Work Phone: [facility] Payers Date Payer Category Payer Medicare [id number] 2015 Private Health Insurance [employer]NA HUMANA MEDICARE SUPPLEMENT [id number] 2015-Present [phone] [address] [address] [place] [address] Indemnity [id number] 2015 Private Health Insurance HUMANA HUMANA MEDICARE SUPPLEMENT [id number] 2015-Present [phone] [address] [address] [place] [address] Indemnity [id number] 2010 Medicare MEDICARE MEDICAR E A AND B [id number] 2010-Present [phone] [place] [address] Medicare [id number] 2010 Medicare MEDICARE MEDICAR E A AND B [id number] 2010-Present [phone] [place] [address] Medicare [id number] 2010 Medicare [id number] Social History Date Type Detail Facility Start: 05-26-2011 End: 03-04-2023 Tobacco smoking status NHIS Never smoked tobacco [facility] Start: 08-28-2021 End: 04-22-2023 Alcohol intake Ex-drinker (finding) [facility] Start: 07-07-2019 History SDOH Alcohol Comment occassionally [facility] Start: 1945 Sex Assigned At Not on file [facility] [place] Start: 08-18-2021 End: 03-13-2022 Exposure to SARS-CoV-2 (event) Not sure [facility] Start: 10-29-2021 End: 11-08-2021 Exposure to SARS-CoV-2 (event) Unable to assess [facility] Work Phone: Start: 05-26-2011 End: 03-04-2023 Tobacco use and exposure Smokeless tobacco non-user [facility] Start: 10-29-2022 End: 01-21-2023 History of Social function [facility] Start: 10-29-2022 End: 01-21-2023 Tobacco use panel [facility] Adult Depression Screening Assessment 0 [facility] Start: 07-25-2020 Gender identity Identifies as female gender (finding) [facility] Clinical Notes 09-06-2021 to 06-03-2023 Telephone Encounter - Christy Díaz - 04/23/2023 4:51 PM ESTTelephone Encounter - Christy Díaz - 04/23/2023 12:08 PM ESTTelephone Encounter - Cecilia Yepez - 04/22/2023 5:08 PM EST Note Date & Type Note Facility 06-03-2023 Note HNO ID: [id number] Author: Jeronimo Rodriguez MD Service: ? Author Type: Physician Type: Progress Notes Filed: 06/03/2023 3:37 PM Note Text: Assessment and Plan 1. 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 Epiretinal membrane (ERM) of right eye -followed by Dr. Hammond -may also be contributing to vision 3. Pseudophakia -symfony s/p YAG capsulotomy both eyes -looks good 4. Irregular astigmatism, bilateral -2/2 Anterior basement membrane dystrophy (ABMD) 5. Dry eye syndrome of both eyes -with tearing left eye > right eye Plan: -no improvement with conservative measures -artificial tears three times a day both eyes -erythromycin ointment at bedtime both eyes -3-month dissolvable collagen plug size 0.3 placed lower puncta both eyes 03/04/23 -asking for superficial keratectomy right eye . Risk, benefis, and alternatives reviewed and consent obtained -continue routine with Dr. Hammond I have confirmed and edited as necessary the relevant ophthalmic history, ROS, and the neuro exam findings as obtained by others. I have seen and examined Bassam Cisneros. I have discussed the case and the management of this patient's care with the Resident/Fellow, if applicable. I also have reviewed and agree with the assessment and plan as stated above and agree with all of its relevant components. Jeronimo Rodriguez MD [facility] 04-24-2023 Note HNO ID: [id number] Author: Claudia Henderson LPN Service: ? Author Type: ? Type: Progress Notes Filed: 04/24/2023 2:26 PM Note Text: Pt here for injection of Xgeva. Given sq in right arm (only). Pt tolerated well. Claudia Henderson LPN [facility] 04-23-2023 Miscellaneous Notes Spoke with patient, advising below and updated 2/2 appointment note re: PET CT. Faxed Office note to [facility]. Christy Díaz Called patient but she was unable to discuss scheduling and requested a call back after 3:00 PM today. Attempted to scheduled mamm @ [facility], but no answer. Faxed orders with request to contact patient to schedule and to notify this office of mamm date. Spoke with [facility] and scheduled PET CT at [facility] on 07/14/22 with an arrival time of 10:15. Orders and documents faxed except for office note. Please fax office note once signed. Patient needs made aware of this appointment and schedule OV afterwards to review results. Christy Díaz Check out comments: Monthly CBC/CMP/Cystatin C.SCHEDULED Xgeva every 3 months. SCHEDULED Mammogram 06/2023. PET then OV in about 3 months. Need to fax ANT orders to [facility] [phone] [facility] [phone] documented in this encounter [facility] 04-22-2023 Note HNO ID: [id number] Author: Cheko Stanford, DO Service: ? Author Type: Physician Type: Progress Notes Filed: 04/23/2023 4:22 PM Note Text: Diagnosis: 1) Metastatic breast cancer. HPI: The patient is a 77-year-old female with a past medical history significant for DM1 (dx age 31--started on insulin at diagnosis), CKD stage 3, hypothyroidism, hyperlipidemia, HTN and CAD (sees Dr. Cifuentes, was told in the past she has ?smaller caliber coronary arteries; medically managed with ranolazine; most recent echocardiogram showed ejection fraction 60% with stage II diastolic dysfunction). She noticed left nipple inversion in May 2019. Prior to that she had a screening mammogram in October 2018 which evidently revealed dense breast tissue without lesion. Mammogram performed to workup the complaint of breast mass again showed dense breast tissue with no discrete lesion. Ultrasound revealed a hypoechoic irregular masses with the first at the 3:00 position 3 cm in the nipple and the second at the 6:00 position 6 cm from the nipple both with posterior shadowing. Patient underwent ultrasound-guided left breast biopsy on 06/23/2019. Pathology: MICROSCOPIC DIAGNOSIS A. Left breast mass at 2 o?clock, needle core biopsy: Invasive lobular carcinoma with the following characteristics: Maximal length - 7 millimeters Nuclear grade - 1 See comment. B. Left breast mass at 5 o?clock, needle core biopsy: Invasive lobular carcinoma with the following characteristics: Maximal length - 8 millimeters Nuclear grade - 1 See comment. COMMENT A AND B. ER/NE/Vha3tcw studies are being performed on sections of tumor and the results from this study will be reported separately ([id number]). MORPHOMETRIC ANALYSIS ER (clone 6F11) >95%, strong intensity NE (clone 16/1E2) 83%, moderate to strong intensity Her-2Neu (clone CB11) 0 MRI Breast 06/30/2019: RIGHT BREAST: The breast tissue is heterogeneously dense with minimal background enhancement. There are no abnormal enhancing masses or areas of non-mass enhancement in the right breast. LEFT BREAST: The breast tissue is heterogeneously dense. 7 mm irregular enhancing lesion at the 2:00 position of the left breast approximately 5 cm from the nipple. Extensive non-mass enhancement of the left breast in an area measuring approximately 7 cm x 8 cm extending to the subareolar region of the left breast with retraction of the nipple. Extensive enhancement in the subareolar region of the retracted nipple (sagittal series 7 images 6-18). This extensive non-mass enhancement is highly suspicious for contiguous parenchymal malignancy, especially since the enhancement extends to the subareolar region and there is nipple retraction. There are no enlarged or abnormal lymph nodes. There is no abnormality in the visualized regions of the chest or liver. IMPRESSION: Index lesion at the 2:00 position with irregular enhancement as described. Extensive non-mass enhancement extending involving the upper and lower quadrants of the left breast extending to the subareolar region of the nipple, highly suspicious for parenchymal malignant involvement. No abnormality in the right breast. No adenopathy identified. Underwent left modified radical mastectomy with sentinel lymph node biopsy followed by immediate left axillary lymph node dissection on 08/05/2019. Pathology: FROZEN SECTION DIAGNOSIS A. [place] lymph nodes, biopsy: Two out of two lymph nodes, positive for metastatic carcinoma. MICROSCOPIC DIAGNOSIS A. Left axillary sentinel lymph nodes, biopsy: Two out of two lymph nodes positive for metastatic carcinoma. Extranodal tumor extension measures 7 mm in greatest dimension. B. Left breast, modified radical mastectomy: Invasive lobular carcinoma. See cancer checklist below. C. New superior margin, excision: Invasive lobular carcinoma. True margins are negative for carcinoma. D. New inferior skin margin, excision: Invasive lobular carcinoma. Cutaneous margin is free of carcinoma. Invasive carcinoma is present at 1.5 mm from the inferior margin. E. Left axillary sentinel lymph nodes, regional lymph adenectomy: 16 out of 16 lymph nodes with metastatic carcinoma. Multifocal extranodal extension (ranging in size from 1 to 6 mm). F. New inferior margin, excision: Invasive lobular carcinoma. True inferior margin is free of carcinoma. Carcinoma is located at 13 mm from true margin. COMMENT BREAST CANCER SUMMARY Procedure: Modified radical mastectomy Specimen: Type: Full breast Size: 21 x 15 x 6 cm Laterality: Left breast Invasive Tumor: Size: 9 x 8 x 6 cm Focality: Multiple foci of invasive carcinoma (largest focus 9 x 8 x 6 cm) Histologic type: Invasive lobular carcinoma. Histologic grade ([place] grade): Glandular/tubular differentiation score: 3 Nuclear pleomorphism score: 2 Mitotic count score: 1 Overall grade: 1 (score o (more content not included)... [facility] 04-16-2023 Note HNO ID: [id number] Author: Farheen Barragan RT(Gabino) Service: Nuclear Medicine Author Type: Technologist Type: Progress Notes Filed: 04/16/2023 12:42 PM Note Text: RADIOLOGY SERVICE PROGRESS NOTE SERVICE DATE: 04/16/2023 SERVICE TIME: 09:45 AM PATIENT IDENTITY VERIFICATION COMPLETED USING TWO (2) STANDARD IDENTIFIERS: Name and Date of confirmed by patient verbally FALL SCREENING: Has the patient had 2 falls in the last year or 1 fall with injury or currently using an Ambulatory Assistive Device (Walker, Cane, Wheelchair, Crutches, etc.)? No PATIENT GENDER DATA: .female : No ALLERGIES: Reviewed and unchanged MEDICATIONS REVIEWED: No PATIENT RELEVANT IMPLANT DATA REVIEWED: Not Applicable CREATININE: Creatinine Date Value Ref Range Status 04/16/2023 1.84 (H) 0.58 - 0.96 mg/dL Final 03/18/2023 1.85 (H) 0.58 - 0.96 mg/dL Final 03/09/2023 1.37 (H) 0.58 - 0.96 mg/dL Final Estimated Glomerular Filtration Rate Date Value Ref Range Status 04/16/2023 28 (L) >=60 mL/min/1.73m? Final Comment: Estimated Glomerular Filtration Rate (eGFR) is calculated using the 2020 CKD-EPI creatinine equation. This equation utilizes serum creatinine, sex, and age as parameters. The creatinine assay has traceable calibration to isotope dilution-mass spectrometry. Refer to KDIGO guidelines for clinical interpretation. In patients with unstable renal function, e.g. those with acute kidney injury, the eGFR may not accurately reflect actual GFR. eGFR- Date Value Ref Range Status 07/25/2021 40 Final P.O.C.T. RESULTS: N/A April 16, [address] PERFORMED: No IV SITE: Ambulatory: A peripheral IV was started in the Right hand with a Angio cath: 24 gauge. POST EXAM PIV STATUS: Discontinued PROCEDURE TYPE: NM INJECT: Whole Body Bone Scan. 22.1 mCi Tc99m MDP. No other medications given.. ADMINISTRATION TIME: 09:55 PATIENT DISCHARGED TO: Ambulatory patient, left [place] department area. A Diagnostic radioactive procedure has taken place, with no further precautions necessary other than routine body substance precautions. More information regarding radiation safety can be found using this link: [email or web address]%20Medi cine%20Procedures.[email or web address] SIGNATURE: RT Baldomero(R) PATIENT NAME: Bassam Cisneros DATE: April 16, 2023 TIME: 10:00 AM PAGER/CONTACT #: [facility] 04-16-2023 History of Present illness Narrative RADIOLOGY SERVICE PROGRESS NOTE SERVICE DATE: 04/16/2023 SERVICE TIME: 09:45 AM PATIENT IDENTITY VERIFICATION COMPLETED USING TWO (2) STANDARD IDENTIFIERS: Name and Date of confirmed by patient verbally FALL SCREENING: Has the patient had 2 falls in the last year or 1 fall with injury or currently using an Ambulatory Assistive Device (Walker, Cane, Wheelchair, Crutches, etc.)? No PATIENT GENDER DATA: .female : No ALLERGIES: Reviewed and unchanged MEDICATIONS REVIEWED: No PATIENT RELEVANT IMPLANT DATA REVIEWED: Not Applicable CREATININE: Creatinine Date Value Ref Range Status 04/16/2023 1.84 (H) 0.58 - 0.96 mg/dL Final 03/18/2023 1.85 (H) 0.58 - 0.96 mg/dL Final 03/09/2023 1.37 (H) 0.58 - 0.96 mg/dL Final Estimated Glomerular Filtration Rate Date Value Ref Range Status 04/16/2023 28 (L) >=60 mL/min/1.73m Final Comment: Estimated Glomerular Filtration Rate (eGFR) is calculated using the 2020 CKD-EPI creatinine equation. This equation utilizes serum creatinine, sex, and age as parameters. The creatinine assay has traceable calibration to isotope dilution-mass spectrometry. Refer to KDIGO guidelines for clinical interpretation. In patients with unstable renal function, e.g. those with acute kidney injury, the eGFR may not accurately reflect actual GFR. eGFR- Date Value Ref Range Status 07/25/2021 40 Final P.O.C.T. RESULTS: N/A April 16, [address] PERFORMED: No IV SITE: Ambulatory: A peripheral IV was started in the Right hand with a Angio cath: 24 gauge. POST EXAM PIV STATUS: Discontinued PROCEDURE TYPE: NM INJECT: Whole Body Bone Scan. 22.1 mCi Tc99m MDP. No other medications given.. ADMINISTRATION TIME: 09:55 PATIENT DISCHARGED TO: Ambulatory patient, left [place] department area. A Diagnostic radioactive procedure has taken place, with no further precautions necessary other than routine body substance precautions. More information regarding radiation safety can be found using this link: [email or web address] %[email or web address] SIGNATURE: JESSICA Alexandre) PATIENT NAME: Bassam Cisneros DATE: April 16, 2023 TIME: 10:00 AM PAGER/CONTACT #: documented in this encounter [facility] 04-10-2023 Miscellaneous Notes SOCIAL WORK FOLLOW UP NOTE: [facility] Date of service: April 10, 2023 Bassam Cisneros is being seen for a follow up social work visit. Today's visit includes: patient TOPICS ADDRESSED: SW received a fax this date from [employer] that pt is due to renew her assistance for Verzenio. SW prepped an updated application and called pt to arrange a time for pt to come sign. Pt reports she will be in for labs on Thursday, 04/15, and will sig application then. SW to also obtain physician signature. SW will update this note once application is signed and faxed. PLAN: Assist with financial support applications and Continue follow up as needed F/U APPOINTMENT: PRN Assigned LANDON listed in Care Team tab: Yes ARIELLA Lainez documented in this encounter [facility] 04-07-2023 Miscellaneous Notes Patient has been identified by name and date of : Yes Requested Prescriptions Pending Prescriptions Disp Refills anastrozole (ARIMIDEX) 1 mg tablet [Pharmacy Med Name: ANASTROZOLE 1 MG Tablet] 90 tablet 10 Sig: take 1 tablet every day RX INSTRUCTIONS: Patient aware RX will be sent to pharmacy. No need to notify patient. Caitlin Moore LPN documented in this encounter [facility] 03-09-2023 Miscellaneous Notes Images from the original note were not included. Pt. Notified of results of todays BMP. Informed she can resume the Verzenio, and Dr. Stanford added cystatin C standing order, going forward. Caitlin Moore LPN Can let her know her serum creatinine improved very nicely after holding Verzenio. However I do not think the previous increase in serum creatinine necessarily reflected her true kidney function. She can resume Verzenio. Add cystatin C to her lab work going forward. I placed a standing order. Please fax a copy of this note along with her most recent BMP to Dr. Best. Cheko Stanford DO documented in this encounter [facility] 03-04-2023 Note HNO ID: [id number] Author: Jeronimo Rodriguez MD Service: ? Author Type: Physician Type: Progress Notes Filed: 03/04/2023 2:53 PM Note Text: Assessment and Plan 1. 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 Epiretinal membrane (ERM) of right eye -followed by Dr. Hammond -may also be contributing to vision 3. Pseudophakia -symfony s/p YAG capsulotomy both eyes -looks good 4. Irregular astigmatism, bilateral -2/2 Anterior basement membrane dystrophy (ABMD) 5. Dry eye syndrome of both eyes -with tearing left eye > right eye Plan: -will try to increase lubrication -artificial tears three times a day both eyes -erythromycin ointment at bedtime both eyes -3-month dissolvable collagen plug size 0.3 placed lower puncta both eyes 03/04/23 -follow-up 2-3 months with [place]. If not better, to consider superficial keratectomy -continue routine with Dr. Hammond I have confirmed and edited as necessary the relevant ophthalmic history, ROS, and the neuro exam findings as obtained by others. I have seen and examined Bassam Cisneros. I have discussed the case and the management of this patient's care with the Resident/Fellow, if applicable. I also have reviewed and agree with the assessment and plan as stated above and agree with all of its relevant components. Jeronimo Rodriguez MD March 04, 2023 2:50 PM [facility] 03-04-2023 History of Present illness Narrative Assessment and Plan 1. 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 Epiretinal membrane (ERM) of right eye -followed by Dr. Hammond -may also be contributing to vision 3. Pseudophakia -symfony s/p YAG capsulotomy both eyes -looks good 4. Irregular astigmatism, bilateral -2/2 Anterior basement membrane dystrophy (ABMD) 5. Dry eye syndrome of both eyes -with tearing left eye > right eye Plan: -will try to increase lubrication -artificial tears three times a day both eyes -erythromycin ointment at bedtime both eyes -3-month dissolvable collagen plug size 0.3 placed lower puncta both eyes 03/04/23 -follow-up 2-3 months with [place]. If not better, to consider superficial keratectomy -continue routine with Dr. Hammond I have confirmed and edited as necessary the relevant ophthalmic history, ROS, and the neuro exam findings as obtained by others. I have seen and examined Bassam Cisneros. I have discussed the case and the management of this patient's care with the Resident/Fellow, if applicable. I also have reviewed and agree with the assessment and plan as stated above and agree with all of its relevant components. Jeronimo Rodriguez MD March 04, 2023 2:50 PM documented in this encounter [facility] 02-22-2023 Miscellaneous Notes I called and spoke to Bassam and she stated understanding. I did schedule her for he follow-up lab work in 2 weeks for Thursday03/09/23 @ 11:00 am, per her request. Please enter lab order for BMP Janel Aponte Her creatinine is up a bit more. I talked with Dr. Best about this. Likely the Verzenio may be causing it but not necessarily indicating any further damage to her kidney. However, in order to help determine if the Verzenio is causing the increasing creatinine, I would like her to hold it for 2 weeks and have a repeat BMP. Cheko Stanford DO documented in this encounter [facility] 01-21-2023 Note HNO ID: [id number] Author: Cheko Stanford, DO Service: ? Author Type: Physician Type: Progress Notes Filed: 01/21/2023 11:43 AM Note Text: Diagnosis: 1) Metastatic breast cancer. HPI: The patient is a 76-year-old female with a past medical history significant for DM1 (dx age 31--started on insulin at diagnosis), CKD stage 3, hypothyroidism, hyperlipidemia, HTN and CAD (sees Dr. Cifuentes, was told in the past she has ?smaller caliber coronary arteries; medically managed with ranolazine; most recent echocardiogram showed ejection fraction 60% with stage II diastolic dysfunction). She noticed left nipple inversion in May 2019. Prior to that she had a screening mammogram in October 2018 which evidently revealed dense breast tissue without lesion. Mammogram performed to workup the complaint of breast mass again showed dense breast tissue with no discrete lesion. Ultrasound revealed a hypoechoic irregular masses with the first at the 3:00 position 3 cm in the nipple and the second at the 6:00 position 6 cm from the nipple both with posterior shadowing. Patient underwent ultrasound-guided left breast biopsy on 06/23/2019. Pathology: MICROSCOPIC DIAGNOSIS A. Left breast mass at 2 o?clock, needle core biopsy: Invasive lobular carcinoma with the following characteristics: Maximal length - 7 millimeters Nuclear grade - 1 See comment. B. Left breast mass at 5 o?clock, needle core biopsy: Invasive lobular carcinoma with the following characteristics: Maximal length - 8 millimeters Nuclear grade - 1 See comment. COMMENT A AND B. ER/NE/Cby4oub studies are being performed on sections of tumor and the results from this study will be reported separately ([id number]). MORPHOMETRIC ANALYSIS ER (clone 6F11) >95%, strong intensity NE (clone 16/1E2) 83%, moderate to strong intensity Her-2Neu (clone CB11) 0 MRI Breast 06/30/2019: RIGHT BREAST: The breast tissue is heterogeneously dense with minimal background enhancement. There are no abnormal enhancing masses or areas of non-mass enhancement in the right breast. LEFT BREAST: The breast tissue is heterogeneously dense. 7 mm irregular enhancing lesion at the 2:00 position of the left breast approximately 5 cm from the nipple. Extensive non-mass enhancement of the left breast in an area measuring approximately 7 cm x 8 cm extending to the subareolar region of the left breast with retraction of the nipple. Extensive enhancement in the subareolar region of the retracted nipple (sagittal series 7 images 6-18). This extensive non-mass enhancement is highly suspicious for contiguous parenchymal malignancy, especially since the enhancement extends to the subareolar region and there is nipple retraction. There are no enlarged or abnormal lymph nodes. There is no abnormality in the visualized regions of the chest or liver. IMPRESSION: Index lesion at the 2:00 position with irregular enhancement as described. Extensive non-mass enhancement extending involving the upper and lower quadrants of the left breast extending to the subareolar region of the nipple, highly suspicious for parenchymal malignant involvement. No abnormality in the right breast. No adenopathy identified. Underwent left modified radical mastectomy with sentinel lymph node biopsy followed by immediate left axillary lymph node dissection on 08/05/2019. Pathology: FROZEN SECTION DIAGNOSIS A. [place] lymph nodes, biopsy: Two out of two lymph nodes, positive for metastatic carcinoma. MICROSCOPIC DIAGNOSIS A. Left axillary sentinel lymph nodes, biopsy: Two out of two lymph nodes positive for metastatic carcinoma. Extranodal tumor extension measures 7 mm in greatest dimension. B. Left breast, modified radical mastectomy: Invasive lobular carcinoma. See cancer checklist below. C. New superior margin, excision: Invasive lobular carcinoma. True margins are negative for carcinoma. D. New inferior skin margin, excision: Invasive lobular carcinoma. Cutaneous margin is free of carcinoma. Invasive carcinoma is present at 1.5 mm from the inferior margin. E. Left axillary sentinel lymph nodes, regional lymph adenectomy: 16 out of 16 lymph nodes with metastatic carcinoma. Multifocal extranodal extension (ranging in size from 1 to 6 mm). F. New inferior margin, excision: Invasive lobular carcinoma. True inferior margin is free of carcinoma. Carcinoma is located at 13 mm from true margin. COMMENT BREAST CANCER SUMMARY Procedure: Modified radical mastectomy Specimen: Type: Full breast Size: 21 x 15 x 6 cm Laterality: Left breast Invasive Tumor: Size: 9 x 8 x 6 cm Focality: Multiple foci of invasive carcinoma (largest focus 9 x 8 x 6 cm) Histologic type: Invasive lobular carcinoma. Histologic grade ([place] grade): Glandular/tubular differentiation score: 3 Nuclear pleomorphism score: 2 Mitotic count score: 1 Overall grade: 1 (score o (more content not included)... [facility] 01-21-2023 History of Present illness Narrative Diagnosis: 1) Metastatic breast cancer. HPI: The patient is a 76-year-old female with a past medical history significant for DM1 (dx age 31--started on insulin at diagnosis), CKD stage 3, hypothyroidism, hyperlipidemia, HTN and CAD (sees Dr. Cifuentes, was told in the past she has ?smaller caliber coronary arteries; medically managed with ranolazine; most recent echocardiogram showed ejection fraction 60% with stage II diastolic dysfunction). She noticed left nipple inversion in May 2019. Prior to that she had a screening mammogram in October 2018 which evidently revealed dense breast tissue without lesion. Mammogram performed to workup the complaint of breast mass again showed dense breast tissue with no discrete lesion. Ultrasound revealed a hypoechoic irregular masses with the first at the 3:00 position 3 cm in the nipple and the second at the 6:00 position 6 cm from the nipple both with posterior shadowing. Patient underwent ultrasound-guided left breast biopsy on 06/23/2019. Pathology: MICROSCOPIC DIAGNOSIS A. Left breast mass at 2 o clock, needle core biopsy: Invasive lobular carcinoma with the following characteristics: Maximal length - 7 millimeters Nuclear grade - 1 See comment. B. Left breast mass at 5 o clock, needle core biopsy: Invasive lobular carcinoma with the following characteristics: Maximal length - 8 millimeters Nuclear grade - 1 See comment. COMMENT A & B. ER/NE/Fjq2gjc studies are being performed on sections of tumor and the results from this study will be reported separately ([id number]). MORPHOMETRIC ANALYSIS ER (clone 6F11) >95%, strong intensity NE (clone 16/1E2) 83%, moderate to strong intensity Her-2Neu (clone CB11) 0 MRI Breast 06/30/2019: RIGHT BREAST: The breast tissue is heterogeneously dense with minimal background enhancement. There are no abnormal enhancing masses or areas of non-mass enhancement in the right breast. LEFT BREAST: The breast tissue is heterogeneously dense. 7 mm irregular enhancing lesion at the 2:00 position of the left breast approximately 5 cm from the nipple. Extensive non-mass enhancement of the left breast in an area measuring approximately 7 cm x 8 cm extending to the subareolar region of the left breast with retraction of the nipple. Extensive enhancement in the subareolar region of the retracted nipple (sagittal series 7 images 6-18). This extensive non-mass enhancement is highly suspicious for contiguous parenchymal malignancy, especially since the enhancement extends to the subareolar region and there is nipple retraction. There are no enlarged or abnormal lymph nodes. There is no abnormality in the visualized regions of the chest or liver. IMPRESSION: Index lesion at the 2:00 position with irregular enhancement as described. Extensive non-mass enhancement extending involving the upper and lower quadrants of the left breast extending to the subareolar region of the nipple, highly suspicious for parenchymal malignant involvement. No abnormality in the right breast. No adenopathy identified. Underwent left modified radical mastectomy with sentinel lymph node biopsy followed by immediate left axillary lymph node dissection on 08/05/2019. Pathology: FROZEN SECTION DIAGNOSIS A. [place] lymph nodes, biopsy: Two out of two lymph nodes, positive for metastatic carcinoma. MICROSCOPIC DIAGNOSIS A. Left axillary sentinel lymph nodes, biopsy: Two out of two lymph nodes positive for metastatic carcinoma. Extranodal tumor extension measures 7 mm in greatest dimension. B. Left breast, modified radical mastectomy: Invasive lobular carcinoma. See cancer checklist below. C. New superior margin, excision: Invasive lobular carcinoma. True margins are negative for carcinoma. D. New inferior skin margin, excision: Invasive lobular carcinoma. Cutaneous margin is free of carcinoma. Invasive carcinoma is present at 1.5 mm from the inferior margin. E. Left axillary sentinel lymph nodes, regional lymph adenectomy: 16 out of 16 lymph nodes with metastatic carcinoma. Multifocal extranodal extension (ranging in size from 1 to 6 mm). F. New inferior margin, excision: Invasive lobular carcinoma. True inferior margin is free of carcinoma. Carcinoma is located at 13 mm from true margin. COMMENT BREAST CANCER SUMMARY Procedure: Modified radical mastectomy Specimen: Type: Full breast Size: 21 x 15 x 6 cm Laterality: Left breast Invasive Tumor: Size: 9 x 8 x 6 cm Focality: Multiple foci of invasive carcinoma (largest focus 9 x 8 x 6 cm) Histologic type: Invasive lobular carcinoma. 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 Skeletal muscle: Free of carcinoma. Margins Involved by Invasive Carcinoma: Distance from closest margin: 13 mm from inferior margin Margins Involved by In Situ Carcinoma: Distance from closest margin: 22 mm from inferior margin Lymph Nodes: Number of sentinel lymph nodes examined: 2/2 with metastatic carcinoma and extranodal tumor. Total number of lymph nodes examined: 18 Number of lymph nodes positive for macrometastatic carcinoma - 18 out of 18 with extranodal extension ranging in size from 1 to 7 mm in greatest dimension. See specimens A & E. Microcalcifications: Present in neoplastic and non-neoplastic tissue. Treatment Effect: Unknown Additional Pathologic Findings: Atypical lobular hyperplasia and atypical intraductal hyperplasia closely approaching DCIS, (2.0mm in greatest dimension). Ancillary Studies: Previously performed on same tumor ([id number] / [id number]) ER: >95%, strong intensity NE: 83%, moderate to strong intensity Her2: 0 Clinical History: Mass of breast Pathologic Stage: pT3 N3a Mx Underwent CT scan of the chest, abdomen and pelvis on 09/13/2019. She was noted to have mild dilation of the common bile duct and intrahepatic bile ducts with no other evidence of metastatic disease. Images of the chest revealed postsurgical changes involving the left breast with subcentimeter pulmonary nodules measuring up to 2 mm in size. Sclerosis involving the T2 vertebral body as well as a portion of the T4 vertebral body were observed. MRI of the brain revealed a nonspecific 3 mm focus of enhancement along the anterior falx possibly representing a tiny meningioma with other neoplastic etiology being less likely. There was also patchy marrow heterogeneity within the calvarium and was indeterminant. Whole-body bone scan on 09/15/2019 demonstrated scattered foci of uptake suspicious for osseous metastasis in the thoracic spine at the T3/T2 level, possibly T9 level, sternum, right midhumerus, scattered ribs on the right ninth level. MRI Thoracic spine 09/27/2019: Osseous metastatic disease involving the T1/T2 vertebral bodies without superimposed pathologic fracture or discrete extraosseous/epidural extension. No additional suspicious lesions identified in the remaining thoracic spine. No high-grade canal or foraminal stenosis. Previous therapy: 1) Anastrozole and palbociclib. Dose incrementally decreased due to prolonged thrombocytopenia/neutropenia. 2) Xgeva due to CKD. Recent history: She had a PET scan on 09/11/2021 that demonstrated no evidence of FDG avid increased glucose metabolism. She was admitted to [facility] 10/25 through 11/07 for neutropenic fever. Per d/c summary: 10/29: Patient still having intermittent fever. On Vanco and meropenem. IV Lasix 40 mg given this morning. On high flow oxygen Airvo. Oncologist consult reviewed. Granix 3 mg subcu daily for neutropenia. Jairon is on hold. Continue anastrozole 1 mg once daily. 2D echo shows EF 70% LV systolic function normal, trivial MR TR and eccentric AR. ID consult reviewed. Recommended if no answer found or not improving over the next 1 to [address] abdomen pelvis with contrast and bone marrow biopsy. 10/30: Incentive spirometry and Pep For bronchopulmonary hygiene. Acidophilus added for possible antibiotic related loose bowel movement. No fever last night. Furosemide 40 mg IV 1 dose given. WBC count improving. Patient still is pancytopenic. Monitor CBC 10/31: Hypoxia worsened on high flow oxygen. Patient agreeable for Airvo. Cultures reviewed. Blood cultures negative for more than 48 hours. EBV CMV pending. No fever in last 48 hours. Vancomycin discontinued, continue meropenem as recommended by ID. ID consult reviewed 11/01: Airvo 65% FiO2, patient is being taken for bronchoscopy. Bronchoscopy showed erythema present throughout tracheobronchial tree BAL performed in lingula and right middle lobe. Patient continued to be hypoxic on high FiO2 with bilateral crepitations. Cultures so far negative. Continue to be pancytopenic. 11/02: Patient had bronchoscopy yesterday. BAL preliminary gram stain shows 1-2+ mixed gram-positive organism. Enteric bacteriology panel negative. EBV and histoplasma antibody pending. 11/03: Last chest x-ray on 10/31 shows increased infiltrate in the right lung and nodularity at right lower lung field therefore possibility of bilateral pneumonitis due to Ibrance. Prelim gram stain of bronc shows mixed 2+ gram-positive organism. Patient on 50% FiO2 Airvo. Hemoglobin 7.3 and platelet count 81,000. Mild improvement in platelet count. Neutropenia resolved. ANC 8.2 thousand. DC Granix. Patient hypoxia is constant on 50% FiO2, therefore transferred to PCU. 11/04: BAL cx showing actinomyces. On amp/SB. CXR shows overall improvement from 10/31. Will defer to pulm if CTA imaging necessary. 11/07: change abx to amoxicillin and treat for 3 more days to complete a 7 day course. Current therapy: 1) Anastrozole and Verzenio. Dose reduced to 50 mg BID. Presents for ongoing oncologic management. Interim history: Has trouble with blurred vision in the sunlight. Saw ophthalmology. Cataracts cleaned. Told has wrinkle on retina. Will be getting second opinion. No new MS pain. Occasional pain left lower anterior-lateral rib associated with itch. Notices more fatigue lately. Occasional dizziness. Most recent screening mammogram of the right breast was 07/15/2022. That study identified a 3 x 2.1 cm well-defined nodule in the upper lateral aspect of the right breast. Ultrasound identified heterogeneously dense fibroglandular tissue with no sonographic abnormality. PMH, medications and allergies personally reviewed by me today. Any changes documented in appropriate section. ROS: Constitutional: Denies episodes of fever and night sweats. Neuro: Denies WYNNE. HEENT: No recent change in voice, vision or hearing (has hearing aids). Resp: Denies cough, wheeze and hemoptysis. Denies shortness of breath at rest. CVS: Denies exertional chest pain, PND, orthopnea and LE edema. GI: Denies dysphagia and odynophagia. : Denies dysuria or gross hematuria. Endo: Denies hot flashes. Denies polyuria and polydipsia. Denies heat and cold intolerance. Musculoskeletal: See above. Derm: Denies rash. Denies jaundice and diffuse pruritis. Heme: See above. Psych: Normal mood. PHYSICAL EXAM: Vitals: Blood pressure 139/77, pulse 62, temperature 36.2 C (97.1 F), height 151.5 cm (4' 11.65 ), weight 60.8 kg (134 lb), SpO2 98 %. Well-appearing and in no acute distress. EYES: Sclerae are anicteric bilaterally. LYMPHATIC: There is no palpable cervical, supraclavicular or axillary adenopathy. RESPIRATORY: Inspiratory breath sounds are of normal intensity in all snyder. CARDIOVASCULAR: Rhythm is regular. BREAST: Declined typing section chief. Left mastectomy site--no chest wall mass or nodule. Right breast--dense tissue. No discrete mass. ABDOMEN: The abdomen is nondistended. Extremities: No swelling or edema. SKIN: No jaundice or rash. No petechiae. NEUROLOGIC: training consultant II-XII are grossly intact. Less generalized lower extremity weakness but still needs help stepping up onto the exam table. MS: LABS: Component Latest Ref Rng & Units 06/30/2022 07/07/2022 08/06/2022 10/29/2022 01/21/2023 WBC 3.70 - 11.00 k/uL 3.17 (L) 4.40 4.52 4.06 4.14 RBC 3.90 - 5.20 m/uL 2.92 (L) 2.98 (L) 3.08 (L) 3.07 (L) 2.91 (L) Hemoglobin 11.5 - 15.5 g/dL 10.2 (L) 10.4 (L) 11.0 (L) 11.0 (L) 10.5 (L) Hematocrit 36.0 - 46.0 % 29.7 (L) 30.8 (L) 32.6 (L) 32.0 (L) 30.3 (L) MCV 80.0 - 100.0 fL 101.7 (H) 103.4 (H) 105.8 (H) 104.2 (H) 104.1 (H) MCH 26.0 - 34.0 pg 34.9 (H) 34.9 (H) 35.7 (H) 35.8 (H) 36.1 (H) MCHC 30.5 - 36.0 g/dL 34.3 33.8 33.7 34.4 34.7 RDW-CV 11.5 - 15.0 % 15.8 (H) 15.5 (H) 13.6 13.9 12.7 Platelet Count 150 - 400 k/uL 142 (L) 144 (L) 181 143 (L) 125 (L) MPV 9.0 - 12.7 fL 9.6 9.4 9.9 9.8 9.9 Neut% % 34.3 46.2 56.4 47.8 42.7 Abs Neut (ANC) 1.45 - 7.50 k/uL 1.09 (L) 2.03 2.55 1.94 1.77 Lymph% % 54.9 41.6 31.9 40.4 46.4 Abs Lymph 1.00 - 4.00 k/uL 1.74 1.83 1.44 1.64 1.92 Wayne% % 7.9 10.0 8.6 8.9 7.7 Abs Wayne <0.87 k/uL 0.25 0.44 0.39 0.36 0.32 Eosin% % 1.6 0.9 2.0 1.7 1.7 Abs Eosin <0.46 k/uL 0.05 0.04 0.09 0.07 0.07 Baso% % 1.3 1.1 0.9 1.0 1.0 Abs Baso <0.11 k/uL 0.04 0.05 0.04 0.04 0.04 Immature Gran % % 0.0 0.2 0.2 0.2 0.5 IMMATURE GRANS (ABS) <0.10 k/uL <0.03 <0.03 <0.03 <0.03 <0.03 NRBC /100 WBC 0.0 0.0 0.0 0.0 0.0 Absolute nRBC <0.01 k/uL <0.01 <0.01 <0.01 <0.01 <0.01 DTYPE Auto Auto Auto Auto Auto ASSESSMENT/PLAN: (C50.812, Z17.0) Malignant 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, estrogen receptor positive (HCC) (primary encounter diagnosis) (C79.51) Bone metastases (HCC) Assessment: -cT3 cN0 M0 ER/NE positive, HER2 negative infiltrating lobular carcinoma of the left breast. -pT3 pN3a MX stage IIIC ER/NE positive, HER2 negative infiltrating lobular carcinoma of the left breast. -Was found to have bone metastases on staging work-up post mastectomy. -Tumor markers normal at baseline. -PET scan at the end of August 2021 suggested BLAKE. -Prolonged hospitalization for pneumonia with ARDS and pancytopenia. Resumed Verzenio at dose reduction. -Tolerating anastrozole well with no unexpected or severe side effect. -Has history of hyperparathyroidism as evidenced by increased PTH 12/2020. -PET 11/2022. BLAKE. -Fatigue. -Discussed alternating PET with bone scan every 3 months. Plan: -Continue anastrozole. -Xgeva every 3 months. -Continue Verzenio 50 mg BID. -Check B12, folate and TSH (fatigue). -Due for screening mammogram 06/2023. -Bone scan then OV in about 3 months. Portions of this documentation were copied and pasted from previous office visit notes in order to provide a cohesive continuity of the history. The note has been reviewed and edited and updated as necessary. I spent a total of 20 minutes on the date of the service which included preparing to see the patient, [id number] patient care, completing clinical documentation, obtaining and/or reviewing separately obtained history, performing a medically appropriate examination, counseling and educating the patient/family/caregiver, ordering medications, tests, or procedures, communicating with other HCPs (not separately reported), and communicating results to the patient/family/caregiver. Cheko Stanfrod DO documented in this encounter [facility] 01-21-2023 Nurse Note Pt here for injection of xgeva. Given sq in right arm (always). Pt tolerated well. For all other information regarding today, see today's OV note with Dr Stanford. Claudia Henderson LPN documented in this encounter [facility] 11-28-2022 Miscellaneous Notes Patient has been identified by name and date of : Yes Requested Prescriptions Pending Prescriptions Disp Refills abemaciclib (VERZENIO) 50 mg tablet [Pharmacy Med Name: Verzenio Oral Tablet 50 MG] 0 Sig: TAKE 1 TABLET BY MOUTH TWICE DAILY RX INSTRUCTIONS: Patient aware RX will be sent to pharmacy. No need to notify patient. Caitlin Holloway LPN documented in this encounter [facility] 11-26-2022 Miscellaneous Notes Pt returned call. Read pt message from . Pt stated her understanding Left message for pt to return call to office. Claudia Henderson LPN Good news. Can let her know the PET scan from 11/18/2022 was negative, meaning no radiographic evidence of active breast cancer currently. Continue present therapy and follow-up as scheduled. Cheko Stanford DO documented in this encounter [facility] 10-29-2022 Note HNO ID: [id number] Author: Cheko Stanford DO Service: ? Author Type: Physician Type: Progress Notes Filed: 10/29/2022 4:56 PM Note Text: Diagnosis: 1) Metastatic breast cancer. HPI: The patient is a 76-year-old female with a past medical history significant for DM1 (dx age 31--started on insulin at diagnosis), CKD stage 3, hypothyroidism, hyperlipidemia, HTN and CAD (sees Dr. Cifuentes, was told in the past she has ?smaller caliber coronary arteries; medically managed with ranolazine; most recent echocardiogram showed ejection fraction 60% with stage II diastolic dysfunction). She noticed left nipple inversion in May 2019. Prior to that she had a screening mammogram in October 2018 which evidently revealed dense breast tissue without lesion. Mammogram performed to workup the complaint of breast mass again showed dense breast tissue with no discrete lesion. Ultrasound revealed a hypoechoic irregular masses with the first at the 3:00 position 3 cm in the nipple and the second at the 6:00 position 6 cm from the nipple both with posterior shadowing. Patient underwent ultrasound-guided left breast biopsy on 06/23/2019. Pathology: MICROSCOPIC DIAGNOSIS A. Left breast mass at 2 o?clock, needle core biopsy: Invasive lobular carcinoma with the following characteristics: Maximal length - 7 millimeters Nuclear grade - 1 See comment. B. Left breast mass at 5 o?clock, needle core biopsy: Invasive lobular carcinoma with the following characteristics: Maximal length - 8 millimeters Nuclear grade - 1 See comment. COMMENT A AND B. ER/NE/Ldd1nmf studies are being performed on sections of tumor and the results from this study will be reported separately ([id number]). MORPHOMETRIC ANALYSIS ER (clone [id number]) >95%, strong intensity NE (clone 16/1E2) 83%, moderate to strong intensity Her-2Neu (clone CB11) 0 MRI Breast 06/30/2019: RIGHT BREAST: The breast tissue is heterogeneously dense with minimal background enhancement. There are no abnormal enhancing masses or areas of non-mass enhancement in the right breast. LEFT BREAST: The breast tissue is heterogeneously dense. 7 mm irregular enhancing lesion at the 2:00 position of the left breast approximately 5 cm from the nipple. Extensive non-mass enhancement of the left breast in an area measuring approximately 7 cm x 8 cm extending to the subareolar region of the left breast with retraction of the nipple. Extensive enhancement in the subareolar region of the retracted nipple (sagittal series 7 images 6-18). This extensive non-mass enhancement is highly suspicious for contiguous parenchymal malignancy, especially since the enhancement extends to the subareolar region and there is nipple retraction. There are no enlarged or abnormal lymph nodes. There is no abnormality in the visualized regions of the chest or liver. IMPRESSION: Index lesion at the 2:00 position with irregular enhancement as described. Extensive non-mass enhancement extending involving the upper and lower quadrants of the left breast extending to the subareolar region of the nipple, highly suspicious for parenchymal malignant involvement. No abnormality in the right breast. No adenopathy identified. Underwent left modified radical mastectomy with sentinel lymph node biopsy followed by immediate left axillary lymph node dissection on 08/05/2019. Pathology: FROZEN SECTION DIAGNOSIS A. [place] lymph nodes, biopsy: Two out of two lymph nodes, positive for metastatic carcinoma. MICROSCOPIC DIAGNOSIS A. Left axillary sentinel lymph nodes, biopsy: Two out of two lymph nodes positive for metastatic carcinoma. Extranodal tumor extension measures 7 mm in greatest dimension. B. Left breast, modified radical mastectomy: Invasive lobular carcinoma. See cancer checklist below. C. New superior margin, excision: Invasive lobular carcinoma. True margins are negative for carcinoma. D. New inferior skin margin, excision: Invasive lobular carcinoma. Cutaneous margin is free of carcinoma. Invasive carcinoma is present at 1.5 mm from the inferior margin. E. Left axillary sentinel lymph nodes, regional lymph adenectomy: 16 out of 16 lymph nodes with metastatic carcinoma. Multifocal extranodal extension (ranging in size from 1 to 6 mm). F. New inferior margin, excision: Invasive lobular carcinoma. True inferior margin is free of carcinoma. Carcinoma is located at 13 mm from true margin. COMMENT BREAST CANCER SUMMARY Procedure: Modified radical mastectomy Specimen: Type: Full breast Size: 21 x 15 x 6 cm Laterality: Left breast Invasive Tumor: Size: 9 x 8 x 6 cm Focality: Multiple foci of invasive carcinoma (largest focus 9 x 8 x 6 cm) Histologic type: Invasive lobular carcinoma. Histologic grade ([place] grade): Glandular/tubular differentiation score: 3 Nuclear pleomorphism score: 2 Mitotic count score: 1 Overall grade: 1 (score of (more content not included)... [facility] 10-29-2022 Nurse Note Xgeva injection administered, right arm, tolerated well, no immediate adverse reactions noted. See office notes Caitlin Holloway LPN documented in this encounter [facility] 10-06-2022 Miscellaneous Notes Patient has been identified by name and date of : Yes Requested Prescriptions Pending Prescriptions Disp Refills abemaciclib (VERZENIO) 50 mg tablet [Pharmacy Med Name: Verzenio Oral Tablet 50 MG] 0 Sig: TAKE 1 TABLET BY MOUTH TWICE DAILY RX INSTRUCTIONS: Patient aware RX will be sent to pharmacy. No need to notify patient. Caitlin Holloway LPN documented in this encounter [facility] 09-11-2022 Miscellaneous Notes Patient has been identified by name and date of : Yes Requested Prescriptions Pending Prescriptions Disp Refills abemaciclib (VERZENIO) 50 mg tablet [Pharmacy Med Name: Verzenio Oral Tablet 50 MG] 0 Sig: TAKE 1 TABLET BY MOUTH TWICE DAILY RX INSTRUCTIONS: Patient aware RX will be sent to pharmacy. No need to notify patient. Caitlin Holloway LPN documented in this encounter [facility] 08-14-2022 Miscellaneous Notes Patient has been identified by name and date of : Yes Requested Prescriptions Pending Prescriptions Disp Refills abemaciclib (VERZENIO) 50 mg tablet [Pharmacy Med Name: Verzenio Oral Tablet 50 MG] 0 Sig: TAKE 1 TABLET BY MOUTH TWICE DAILY RX INSTRUCTIONS: Patient aware RX will be sent to pharmacy. No need to notify patient. Caitlin Holloway LPN documented in this encounter [facility] 08-06-2022 Nurse Note Pt here for injection of xgeva. Given sq in right arm -always. Pt tolerated well. Claudia Henderson LPN documented in this encounter [facility] 08-06-2022 Miscellaneous Notes Patient's schedule has been updated as requested below. Janel Catherine Pss Xgeva injections can be changed back to an every 3-month schedule starting 3 months from tomorrow's injection. Cheko Stanford DO documented in this encounter [facility] 07-23-2022 Miscellaneous Notes SW received fax this date stating pt is approved for [facility] assistance for Russel thorough 06/14/2023. SW sent fax to internal scanning and called to inform pt of acceptance. Pt appreciative. ARIELLA Lainez documented in this encounter [facility] 07-16-2022 Miscellaneous Notes Order faxed as requested. Dorie Clayton LPN Order filed. Cheko Stanford DO Pt had mamm yesterday, needs additional imaging. Asking for an US order. please file. Per Mamm at [facility] well defined nodule in the upper lateral aspect of the right breast. Claudia Henderson LPN [facility] is calling to request a right breast ultrasound order to be faxed as soon as possible to [phone]. The patient is currently at the facility. documented in this encounter [facility] 07-14-2022 Note HNO ID: [id number] Author: RT Baldomero(R) Service: Nuclear Medicine Author Type: Technologist Type: Progress Notes Filed: 07/14/2022 3:19 PM Note Text: RADIOLOGY SERVICE PROGRESS NOTE SERVICE DATE: 07/14/2022 SERVICE TIME: 12:05 PM PATIENT IDENTITY VERIFICATION COMPLETED USING TWO (2) STANDARD IDENTIFIERS: Name and Date of confirmed by patient verbally FALL SCREENING: Has the patient had 2 falls in the last year or 1 fall with injury or currently using an Ambulatory Assistive Device (Walker, Cane, Wheelchair, Crutches, etc.)? Yes, Patient High Risk for Falls What interventions were put in place to prevent falls during this visit? Instructed Patient to Call for Help if Needed, Offered Assistance with Transfers/Clothing, Instructed Patient to Remain Seated (Not on Exam Table) Until Exam, Increased Observations by Caregivers, and Escorted to/from Restroom PATIENT GENDER DATA: .female ALLERGIES: Reviewed and unchanged MEDICATIONS REVIEWED: No PATIENT RELEVANT IMPLANT DATA REVIEWED: Not Applicable CREATININE: Creatinine Date Value Ref Range Status 07/07/2022 1.57 (H) 0.58 - 0.96 mg/dL Final 06/30/2022 1.85 (H) 0.58 - 0.96 mg/dL Final 06/23/2022 1.62 (H) 0.58 - 0.96 mg/dL Final Estimated Glomerular Filtration Rate Date Value Ref Range Status 07/07/2022 34 (L) >=60 mL/min/1.73m? Final Comment: Estimated Glomerular Filtration Rate (eGFR) is calculated using the 2020 CKD-EPI creatinine equation. This equation utilizes serum creatinine, sex, and age as parameters. The creatinine assay has traceable calibration to isotope dilution-mass spectrometry. Refer to KDIGO guidelines for clinical interpretation. In patients with unstable renal function, e.g. those with acute kidney injury, the eGFR may not accurately reflect actual GFR. eGFR- Date Value Ref Range Status 07/25/2021 40 Final P.O.C.T. RESULTS: N/A July 14, [address] PERFORMED: No IV SITE: Ambulatory: A peripheral IV was started in the Right hand with a Angio cath: 24 gauge. POST EXAM PIV STATUS: Discontinued PROCEDURE TYPE: NM INJECT: Whole Body Bone Scan. 20.3 mCi Tc99m MDP. No other medications given.. ADMINISTRATION TIME: 12:15 PATIENT DISCHARGED TO: Ambulatory patient, left [place] department area. A Diagnostic radioactive procedure has taken place, with no further precautions necessary other than routine body substance precautions. More information regarding radiation safety can be found using this link: [email or web address] SIGNATURE: VERNON Alexandre PATIENT NAME: Bassam Cisneros DATE: July 14, 2022 TIME: 3:18 PM PAGER/CONTACT #: [facility] 07-14-2022 History of Present illness Narrative RADIOLOGY SERVICE PROGRESS NOTE SERVICE DATE: 07/14/2022 SERVICE TIME: 12:05 PM PATIENT IDENTITY VERIFICATION COMPLETED USING TWO (2) STANDARD IDENTIFIERS: Name and Date of confirmed by patient verbally FALL SCREENING: Has the patient had 2 falls in the last year or 1 fall with injury or currently using an Ambulatory Assistive Device (Walker, Cane, Wheelchair, Crutches, etc.)? Yes, Patient High Risk for Falls What interventions were put in place to prevent falls during this visit? Instructed Patient to Call for Help if Needed, Offered Assistance with Transfers/Clothing, Instructed Patient to Remain Seated (Not on Exam Table) Until Exam, Increased Observations by Caregivers, and Escorted to/from Restroom PATIENT GENDER DATA: .female ALLERGIES: Reviewed and unchanged MEDICATIONS REVIEWED: No PATIENT RELEVANT IMPLANT DATA REVIEWED: Not Applicable CREATININE: Creatinine Date Value Ref Range Status 07/07/2022 1.57 (H) 0.58 - 0.96 mg/dL Final 06/30/2022 1.85 (H) 0.58 - 0.96 mg/dL Final 06/23/2022 1.62 (H) 0.58 - 0.96 mg/dL Final Estimated Glomerular Filtration Rate Date Value Ref Range Status 07/07/2022 34 (L) >=60 mL/min/1.73m Final Comment: Estimated Glomerular Filtration Rate (eGFR) is calculated using the 2020 CKD-EPI creatinine equation. This equation utilizes serum creatinine, sex, and age as parameters. The creatinine assay has traceable calibration to isotope dilution-mass spectrometry. Refer to KDIGO guidelines for clinical interpretation. In patients with unstable renal function, e.g. those with acute kidney injury, the eGFR may not accurately reflect actual GFR. eGFR- Date Value Ref Range Status 07/25/2021 40 Final P.O.C.T. RESULTS: N/A July 14, [address] PERFORMED: No IV SITE: Ambulatory: A peripheral IV was started in the Right hand with a Angio cath: 24 gauge. POST EXAM PIV STATUS: Discontinued PROCEDURE TYPE: NM INJECT: Whole Body Bone Scan. 20.3 mCi Tc99m MDP. No other medications given.. ADMINISTRATION TIME: 12:15 PATIENT DISCHARGED TO: Ambulatory patient, left [place] department area. A Diagnostic radioactive procedure has taken place, with no further precautions necessary other than routine body substance precautions. More information regarding radiation safety can be found using this link: [email or web address] SIGNATURE: VERNON Alexandre PATIENT NAME: Bassam Cisneros DATE: July 14, 2022 TIME: 3:18 PM PAGER/CONTACT #: documented in this encounter [facility] 07-09-2022 Nurse Note Pt here for injection of Xgeva. Given sq in right arm. Pt tolerated well. Claudia Henderson LPN documented in this encounter [facility] 07-08-2022 Miscellaneous Notes Left detailed message on voicemail , also sent message to pt. Via my chart. Caitlin Holloway LPN Can let her know the x-rays of her back shows no obvious sign of cancer. A lot of degenerative/arthritis changes. Keep bone scan scheduled. Cheko Stanford DO documented in this encounter [facility] 07-07-2022 Note HNO ID: [id number] Author: RT Lucy(R) Service: ? Author Type: Technologist Type: Progress Notes Filed: 07/07/2022 4:57 PM Note Text: Radiology Service Progress Note PATIENT NAME: Bassam Cisneros DATE OF SERVICE: July 07, 2022 TIME: 4:44 PM PATIENT IDENTITY VERIFICATION COMPLETED USING TWO (2) IDENTIFIERS: Name and Date of confirmed by patient verbally. FALL SCREENING: Has the patient had 2 falls in the last year or 1 fall with injury or currently using an Ambulatory Assistive Device (Walker, Cane, Wheelchair, Crutches, etc.)? No PATIENT GENDER DATA: Female. status: : No status: NO. PATIENT RELEVANT IMPLANT DATA REVIEWED: Not Applicable RADIOLOGY DEPARTMENT: General X-ray: Exam(s) Completed: Spine X-Ray(s): Thoracic and Lumbar AP / LAT / L5-S1 PERIPHERAL IV DATA: Not applicable SIGNED BY: RT Lucy(R) July 07, 2022 4:44 PM [facility] 07-07-2022 Note HNO ID: [id number] Author: Cheko Stanford, DO Service: ? Author Type: Physician Type: Progress Notes Filed: 07/07/2022 4:13 PM Note Text: Diagnosis: 1) Metastatic breast cancer. HPI: The patient is a 76-year-old female with a past medical history significant for DM1 (dx age 31--started on insulin at diagnosis), CKD stage 3, hypothyroidism, hyperlipidemia, HTN and CAD (sees Dr. Cifuentes, was told in the past she has ?smaller caliber coronary arteries; medically managed with ranolazine; most recent echocardiogram showed ejection fraction 60% with stage II diastolic dysfunction). She noticed left nipple inversion in May 2019. Prior to that she had a screening mammogram in October 2018 which evidently revealed dense breast tissue without lesion. Mammogram performed to workup the complaint of breast mass again showed dense breast tissue with no discrete lesion. Ultrasound revealed a hypoechoic irregular masses with the first at the 3:00 position 3 cm in the nipple and the second at the 6:00 position 6 cm from the nipple both with posterior shadowing. Patient underwent ultrasound-guided left breast biopsy on 06/23/2019. Pathology: MICROSCOPIC DIAGNOSIS A. Left breast mass at 2 o?clock, needle core biopsy: Invasive lobular carcinoma with the following characteristics: Maximal length - 7 millimeters Nuclear grade - 1 See comment. B. Left breast mass at 5 o?clock, needle core biopsy: Invasive lobular carcinoma with the following characteristics: Maximal length - 8 millimeters Nuclear grade - 1 See comment. COMMENT A AND B. ER/NE/Ntd7jaw studies are being performed on sections of tumor and the results from this study will be reported separately ([id number]). MORPHOMETRIC ANALYSIS ER (clone 6F11) >95%, strong intensity NE (clone 16/1E2) 83%, moderate to strong intensity Her-2Neu (clone CB11) 0 MRI Breast 06/30/2019: RIGHT BREAST: The breast tissue is heterogeneously dense with minimal background enhancement. There are no abnormal enhancing masses or areas of non-mass enhancement in the right breast. LEFT BREAST: The breast tissue is heterogeneously dense. 7 mm irregular enhancing lesion at the 2:00 position of the left breast approximately 5 cm from the nipple. Extensive non-mass enhancement of the left breast in an area measuring approximately 7 cm x 8 cm extending to the subareolar region of the left breast with retraction of the nipple. Extensive enhancement in the subareolar region of the retracted nipple (sagittal series 7 images 6-18). This extensive non-mass enhancement is highly suspicious for contiguous parenchymal malignancy, especially since the enhancement extends to the subareolar region and there is nipple retraction. There are no enlarged or abnormal lymph nodes. There is no abnormality in the visualized regions of the chest or liver. IMPRESSION: Index lesion at the 2:00 position with irregular enhancement as described. Extensive non-mass enhancement extending involving the upper and lower quadrants of the left breast extending to the subareolar region of the nipple, highly suspicious for parenchymal malignant involvement. No abnormality in the right breast. No adenopathy identified. Underwent left modified radical mastectomy with sentinel lymph node biopsy followed by immediate left axillary lymph node dissection on 08/05/2019. Pathology: FROZEN SECTION DIAGNOSIS A. [place] lymph nodes, biopsy: Two out of two lymph nodes, positive for metastatic carcinoma. MICROSCOPIC DIAGNOSIS A. Left axillary sentinel lymph nodes, biopsy: Two out of two lymph nodes positive for metastatic carcinoma. Extranodal tumor extension measures 7 mm in greatest dimension. B. Left breast, modified radical mastectomy: Invasive lobular carcinoma. See cancer checklist below. C. New superior margin, excision: Invasive lobular carcinoma. True margins are negative for carcinoma. D. New inferior skin margin, excision: Invasive lobular carcinoma. Cutaneous margin is free of carcinoma. Invasive carcinoma is present at 1.5 mm from the inferior margin. E. Left axillary sentinel lymph nodes, regional lymph adenectomy: 16 out of 16 lymph nodes with metastatic carcinoma. Multifocal extranodal extension (ranging in size from 1 to 6 mm). F. New inferior margin, excision: Invasive lobular carcinoma. True inferior margin is free of carcinoma. Carcinoma is located at 13 mm from true margin. COMMENT BREAST CANCER SUMMARY Procedure: Modified radical mastectomy Specimen: Type: Full breast Size: 21 x 15 x 6 cm Laterality: Left breast Invasive Tumor: Size: 9 x 8 x 6 cm Focality: Multiple foci of invasive carcinoma (largest focus 9 x 8 x 6 cm) Histologic type: Invasive lobular carcinoma. Histologic grade ([place] grade): Glandular/tubular differentiation score: 3 Nuclear pleomorphism score: 2 Mitotic count score: 1 Overall grade: 1 (score of (more content not included)... [facility] 07-07-2022 History of Present illness Narrative Radiology Service Progress Note PATIENT NAME: Bassam Cisneros DATE OF SERVICE: July 07, 2022 TIME: 4:44 PM PATIENT IDENTITY VERIFICATION COMPLETED USING TWO (2) IDENTIFIERS: Name and Date of confirmed by patient verbally. FALL SCREENING: Has the patient had 2 falls in the last year or 1 fall with injury or currently using an Ambulatory Assistive Device (Walker, Cane, Wheelchair, Crutches, etc.)? No PATIENT GENDER DATA: Female. status: : No status: NO. PATIENT RELEVANT IMPLANT DATA REVIEWED: Not Applicable RADIOLOGY DEPARTMENT: General X-ray: Exam(s) Completed: Spine X-Ray(s): Thoracic and Lumbar AP / LAT / L5-S1 PERIPHERAL IV DATA: Not applicable SIGNED BY: RT Lucy(R) July 07, 2022 4:44 PM documented in this encounter [facility] 07-07-2022 History of Present illness Narrative Diagnosis: 1) Metastatic breast cancer. HPI: The patient is a 76-year-old female with a past medical history significant for DM1 (dx age 31--started on insulin at diagnosis), CKD stage 3, hypothyroidism, hyperlipidemia, HTN and CAD (sees Dr. Cifuentes, was told in the past she has ?smaller caliber coronary arteries; medically managed with ranolazine; most recent echocardiogram showed ejection fraction 60% with stage II diastolic dysfunction). She noticed left nipple inversion in May 2019. Prior to that she had a screening mammogram in October 2018 which evidently revealed dense breast tissue without lesion. Mammogram performed to workup the complaint of breast mass again showed dense breast tissue with no discrete lesion. Ultrasound revealed a hypoechoic irregular masses with the first at the 3:00 position 3 cm in the nipple and the second at the 6:00 position 6 cm from the nipple both with posterior shadowing. Patient underwent ultrasound-guided left breast biopsy on 06/23/2019. Pathology: MICROSCOPIC DIAGNOSIS A. Left breast mass at 2 o clock, needle core biopsy: Invasive lobular carcinoma with the following characteristics: Maximal length - 7 millimeters Nuclear grade - 1 See comment. B. Left breast mass at 5 o clock, needle core biopsy: Invasive lobular carcinoma with the following characteristics: Maximal length - 8 millimeters Nuclear grade - 1 See comment. COMMENT A & B. ER/NE/Uug6rco studies are being performed on sections of tumor and the results from this study will be reported separately ([id number]). MORPHOMETRIC ANALYSIS ER (clone 6F11) >95%, strong intensity NE (clone 16/1E2) 83%, moderate to strong intensity Her-2Neu (clone CB11) 0 MRI Breast 06/30/2019: RIGHT BREAST: The breast tissue is heterogeneously dense with minimal background enhancement. There are no abnormal enhancing masses or areas of non-mass enhancement in the right breast. LEFT BREAST: The breast tissue is heterogeneously dense. 7 mm irregular enhancing lesion at the 2:00 position of the left breast approximately 5 cm from the nipple. Extensive non-mass enhancement of the left breast in an area measuring approximately 7 cm x 8 cm extending to the subareolar region of the left breast with retraction of the nipple. Extensive enhancement in the subareolar region of the retracted nipple (sagittal series 7 images 6-18). This extensive non-mass enhancement is highly suspicious for contiguous parenchymal malignancy, especially since the enhancement extends to the subareolar region and there is nipple retraction. There are no enlarged or abnormal lymph nodes. There is no abnormality in the visualized regions of the chest or liver. IMPRESSION: Index lesion at the 2:00 position with irregular enhancement as described. Extensive non-mass enhancement extending involving the upper and lower quadrants of the left breast extending to the subareolar region of the nipple, highly suspicious for parenchymal malignant involvement. No abnormality in the right breast. No adenopathy identified. Underwent left modified radical mastectomy with sentinel lymph node biopsy followed by immediate left axillary lymph node dissection on 08/05/2019. Pathology: FROZEN SECTION DIAGNOSIS A. [place] lymph nodes, biopsy: Two out of two lymph nodes, positive for metastatic carcinoma. MICROSCOPIC DIAGNOSIS A. Left axillary sentinel lymph nodes, biopsy: Two out of two lymph nodes positive for metastatic carcinoma. Extranodal tumor extension measures 7 mm in greatest dimension. B. Left breast, modified radical mastectomy: Invasive lobular carcinoma. See cancer checklist below. C. New superior margin, excision: Invasive lobular carcinoma. True margins are negative for carcinoma. D. New inferior skin margin, excision: Invasive lobular carcinoma. Cutaneous margin is free of carcinoma. Invasive carcinoma is present at 1.5 mm from the inferior margin. E. Left axillary sentinel lymph nodes, regional lymph adenectomy: 16 out of 16 lymph nodes with metastatic carcinoma. Multifocal extranodal extension (ranging in size from 1 to 6 mm). F. New inferior margin, excision: Invasive lobular carcinoma. True inferior margin is free of carcinoma. Carcinoma is located at 13 mm from true margin. COMMENT BREAST CANCER SUMMARY Procedure: Modified radical mastectomy Specimen: Type: Full breast Size: 21 x 15 x 6 cm Laterality: Left breast Invasive Tumor: Size: 9 x 8 x 6 cm Focality: Multiple foci of invasive carcinoma (largest focus 9 x 8 x 6 cm) Histologic type: Invasive lobular carcinoma. 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 Skeletal muscle: Free of carcinoma. Margins Involved by Invasive Carcinoma: Distance from closest margin: 13 mm from inferior margin Margins Involved by In Situ Carcinoma: Distance from closest margin: 22 mm from inferior margin Lymph Nodes: Number of sentinel lymph nodes examined: 2/2 with metastatic carcinoma and extranodal tumor. Total number of lymph nodes examined: 18 Number of lymph nodes positive for macrometastatic carcinoma - 18 out of 18 with extranodal extension ranging in size from 1 to 7 mm in greatest dimension. See specimens A & E. Microcalcifications: Present in neoplastic and non-neoplastic tissue. Treatment Effect: Unknown Additional Pathologic Findings: Atypical lobular hyperplasia and atypical intraductal hyperplasia closely approaching DCIS, (2.0mm in greatest dimension). Ancillary Studies: Previously performed on same tumor ([id number] / [id number]) ER: >95%, strong intensity NE: 83%, moderate to strong intensity Her2: 0 Clinical History: Mass of breast Pathologic Stage: pT3 N3a Mx Underwent CT scan of the chest, abdomen and pelvis on 09/13/2019. She was noted to have mild dilation of the common bile duct and intrahepatic bile ducts with no other evidence of metastatic disease. Images of the chest revealed postsurgical changes involving the left breast with subcentimeter pulmonary nodules measuring up to 2 mm in size. Sclerosis involving the T2 vertebral body as well as a portion of the T4 vertebral body were observed. MRI of the brain revealed a nonspecific 3 mm focus of enhancement along the anterior falx possibly representing a tiny meningioma with other neoplastic etiology being less likely. There was also patchy marrow heterogeneity within the calvarium and was indeterminant. Whole-body bone scan on 09/15/2019 demonstrated scattered foci of uptake suspicious for osseous metastasis in the thoracic spine at the T3/T2 level, possibly T9 level, sternum, right midhumerus, scattered ribs on the right ninth level. MRI Thoracic spine 09/27/2019: Osseous metastatic disease involving the T1/T2 vertebral bodies without superimposed pathologic fracture or discrete extraosseous/epidural extension. No additional suspicious lesions identified in the remaining thoracic spine. No high-grade canal or foraminal stenosis. Previous therapy: 1) Anastrozole and palbociclib. Dose incrementally decreased due to prolonged thrombocytopenia/neutropenia. 2) Xgeva due to CKD. Recent history: She had a PET scan on 09/11/2021 that demonstrated no evidence of FDG avid increased glucose metabolism. She was admitted to [facility] 10/25 through 11/07 for neutropenic fever. Per d/c summary: 10/29: Patient still having intermittent fever. On Vanco and meropenem. IV Lasix 40 mg given this morning. On high flow oxygen Airvo. Oncologist consult reviewed. Granix 3 mg subcu daily for neutropenia. Jairon is on hold. Continue anastrozole 1 mg once daily. 2D echo shows EF 70% LV systolic function normal, trivial MR TR and eccentric AR. ID consult reviewed. Recommended if no answer found or not improving over the next 1 to [address] abdomen pelvis with contrast and bone marrow biopsy. 10/30: Incentive spirometry and Pep For bronchopulmonary hygiene. Acidophilus added for possible antibiotic related loose bowel movement. No fever last night. Furosemide 40 mg IV 1 dose given. WBC count improving. Patient still is pancytopenic. Monitor CBC 10/31: Hypoxia worsened on high flow oxygen. Patient agreeable for Airvo. Cultures reviewed. Blood cultures negative for more than 48 hours. EBV CMV pending. No fever in last 48 hours. Vancomycin discontinued, continue meropenem as recommended by ID. ID consult reviewed 11/01: Airvo 65% FiO2, patient is being taken for bronchoscopy. Bronchoscopy showed erythema present throughout tracheobronchial tree BAL performed in lingula and right middle lobe. Patient continued to be hypoxic on high FiO2 with bilateral crepitations. Cultures so far negative. Continue to be pancytopenic. 11/02: Patient had bronchoscopy yesterday. BAL preliminary gram stain shows 1-2+ mixed gram-positive organism. Enteric bacteriology panel negative. EBV and histoplasma antibody pending. 11/03: Last chest x-ray on 10/31 shows increased infiltrate in the right lung and nodularity at right lower lung field therefore possibility of bilateral pneumonitis due to Ibrance. Prelim gram stain of bronc shows mixed 2+ gram-positive organism. Patient on 50% FiO2 Airvo. Hemoglobin 7.3 and platelet count 81,000. Mild improvement in platelet count. Neutropenia resolved. ANC 8.2 thousand. DC Granix. Patient hypoxia is constant on 50% FiO2, therefore transferred to PCU. 11/04: BAL cx showing actinomyces. On amp/SB. CXR shows overall improvement from 10/31. Will defer to pulm if CTA imaging necessary. 11/07: change abx to amoxicillin and treat for 3 more days to complete a 7 day course. Current therapy: 1) Anastrozole and Verzenio. Dose reduced to 50 mg BID. Presents for ongoing oncologic management. Interim history: Pain in lower thoracic area. Started in April. No pain if sitting. Hurts when standing--washing dishes, walking and showering. Radiates into b/l hips. Dyspnea improved. PMH, medications and allergies personally reviewed by me today. Any changes documented in appropriate section. ROS: Constitutional: Denies episodes of fever and night sweats. Neuro: Denies WYNNE. HEENT: No recent change in voice, vision or hearing (has hearing aids). Resp: Denies cough, wheeze and hemoptysis. Denies shortness of breath at rest. CVS: Denies exertional chest pain, PND, orthopnea and LE edema. GI: Denies dysphagia and odynophagia. : Denies dysuria or gross hematuria. Endo: Denies hot flashes. Denies polyuria and polydipsia. Denies heat and cold intolerance. Musculoskeletal: See above. Derm: Denies rash. Denies jaundice and diffuse pruritis. Heme: See above. Psych: Normal mood. PHYSICAL EXAM: Vitals: Blood pressure 158/83, pulse 62, temperature 36 C (96.8 F), temperature source Temporal, weight 63.3 kg (139 lb 8 oz), SpO2 100 %. Well-appearing and in no acute distress. EYES: Sclerae are anicteric bilaterally. LYMPHATIC: There is no palpable cervical, supraclavicular or axillary adenopathy. RESPIRATORY: Inspiratory breath sounds are of normal intensity in all snyder. CARDIOVASCULAR: Rhythm is regular. BREAST: Declined typing section chief. Left mastectomy site--no chest wall mass or nodule. Right breast--dense tissue. No discrete mass. ABDOMEN: The abdomen is nondistended. Extremities: No swelling or edema. SKIN: No jaundice or rash. No petechiae. NEUROLOGIC: training consultant II-XII are grossly intact. Less generalized lower extremity weakness but still needs help stepping up onto the exam table. MS: No tenderness along thoracic or lumbar spine. LABS: Component Latest Ref Rng & Units 07/07/2022 WBC 3.70 - 11.00 k/uL 4.40 RBC 3.90 - 5.20 m/uL 2.98 (L) Hemoglobin 11.5 - 15.5 g/dL 10.4 (L) Hematocrit 36.0 - 46.0 % 30.8 (L) MCV 80.0 - 100.0 fL 103.4 (H) MCH 26.0 - 34.0 pg 34.9 (H) MCHC 30.5 - 36.0 g/dL 33.8 RDW-CV 11.5 - 15.0 % 15.5 (H) Platelet Count 150 - 400 k/uL 144 (L) MPV 9.0 - 12.7 fL 9.4 Neut% % 46.2 Abs Neut (ANC) 1.45 - 7.50 k/uL 2.03 Lymph% % 41.6 Abs Lymph 1.00 - 4.00 k/uL 1.83 Wayne% % 10.0 Abs Wayne <0.87 k/uL 0.44 Eosin% % 0.9 Abs Eosin <0.46 k/uL 0.04 Baso% % 1.1 Abs Baso <0.11 k/uL 0.05 Immature Gran % % 0.2 IMMATURE GRANS (ABS) <0.10 k/uL <0.03 NRBC /100 WBC 0.0 Absolute nRBC <0.01 k/uL <0.01 DTYPE Auto ASSESSMENT/PLAN: (C50.812, Z17.0) Malignant 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, estrogen receptor positive (HCC) (primary encounter diagnosis) (C79.51) Bone metastases (HCC) Assessment: -cT3 cN0 M0 ER/NE positive, HER2 negative infiltrating lobular carcinoma of the left breast. -pT3 pN3a MX stage IIIC ER/NE positive, HER2 negative infiltrating lobular carcinoma of the left breast. -Was found to have bone metastases on staging work-up post mastectomy. -Tumor markers normal at baseline. -PET scan at the end of August 2021 suggested BLAKE. -Prolonged hospitalization for pneumonia with ARDS and pancytopenia. -Since had recent prolonged hospitalization for sepsis and hypoxemic ventilatory failure and prolonged recovery, I advised holding off on CD 4/6 inhibitor over the summer. Resumed Verzenio at dose reduction. -Tolerating anastrozole well with no unexpected or severe side effect. -She will be out of Verzenio very soon. Evidently there were issues getting it refilled. -New lower thoracic back pain. Plan: -Continue anastrozole. -Xgeva on an every 3 month schedule. -Verzenio 50 mg BID. -Due for screening mammogram right breast. -Plain film thoracic and lumbar spine today. -Obtain bone scan. Portions of this documentation were copied and pasted from previous office visit notes in order to provide a cohesive continuity of the history. The note has been reviewed and edited and updated as necessary. During this patient visit I have spent approximately 20 minutes out of 25 in counseling regarding treatment options, medications, answering questions and discussing plan of care. Cheko Stanford DO documented in this encounter [facility] 06-30-2022 Miscellaneous Notes Spoke with pt. Her kidney function continues to worsen. She needs to contact her credit rating inspector to set up an appointment as soon as possible. Faxed chemistry panels to her credit rating inspector also with copy of this note. Pt. Voiced understanding. She will contact them. Caitlin Holloway LPN Her kidney function continues to worsen. She needs to contact her credit rating inspector to set up an appointment as soon as possible. Please fax chemistry panels to her credit rating inspector. Cheko Stanford DO documented in this encounter [facility] 06-06-2022 Miscellaneous Notes Spoke with pt and scheduled as directed Please schedule next two weeks of labs. Gets weekly labs for Verzenio. She is Dr Stanford's pt, needs her weekly labs and is due for an OV with Dr Stanford. When Dr Stanford returns we can have him sign standing order for labs. Please notify pt of lab apt times. Claudia Henderson LPN documented in this encounter [facility] 06-05-2022 Nurse Note Pt here for injection of Xgeva. Given sq in left arm. Pt tolerated well. Claudia Henderson LPN documented in this encounter [facility] 05-29-2022 Miscellaneous Notes Patient informed of Dr. Stanford's response, stated understanding. Shankar Alexander RN I recommend she reach out to her PCP about these symptoms. Cheko Stanford DO Images from the original note were not included. Patient stated over the weekend she developed urinary frequency and frothy cloudy urine. Patient stated she has had an intermittent strange feeling while urinating but denied pain or dysuria. Patient stated today the symptoms are not as bad as they were yesterday. Patient denies fever, chills, back or flank pain, hematuria, or vaginal symptoms. Patient stated she does not drink as much as she should d/t increasing fluids causing her to urinate more frequently. Patient stated her glucose has been lower than usual, around 80. Patient drinks OJ when glucose goes below 80. Patient stated she has been having difficulty falling and staying asleep so she started this supplement around or Thursday of last week and urinary symptoms started on Thursday. Patient aware this nurse will speak to Dr. Stanford regarding symptoms and will call her back with further instructions. Shankar Alexander RN Pt called to ask about some symptoms she has had off and on since Thursday. She feels a strange feeling with urination and it is often cloudy. Does seem to empty bladder completely. She didn't know if she should be concerned or if this was medication related. documented in this encounter [facility] 04-29-2022 Miscellaneous Notes printed and faxed. Claudia Henderson LPN Her creatinine is a little higher than it was in the past. She is under the care of a credit rating inspector. Please fax a copy of this note, my most recent OV note and CMP results since November to her credit rating inspector. Cheko Stanford DO documented in this encounter [facility] 04-28-2022 Miscellaneous Notes ORAL ANTI-CANCER AGENTS FOLLOW-UP PHONE CALL/VISIT Patient identified by name and date of . YES Patient is on cycle 1, week 2, day 9 of Verzenio for Breast Cancer. SYMPTOM ASSESSMENT Headache: No Visual Changes: No Dizziness: No Do you have any periods of confusion? No Mood changes: No Mouth or throat pain: Dry mouth Appetite: no changes in appetite, appetite good Taste changes: No Nausea: No Vomiting: No Heartburn: No. Weight gain/loss: Unable to assess Episodes of palpitations/chest discomfort/pressure/pain No Shortness of breath: No Cough: Yes; at times she coughs because she feels she gets pills stuck in her throat. Happened 3 times since starting verzenio. Has occurred at night when taking 1/2 benadryl & simvastatin. Diarrhea: no Constipation: no Bladder/Urinary Changes: light yellow to clear Pain: No=0 (pain 0 on a scale of 0-10). Fever: No Chills: No Cold sensitivity: No Numbness/weakness: No Edema: No Skin changes: No Itching: No Yellowing of skin or eyes: No Musculoskeletal/joint changes/issues No Bleeding issues: No Activity Level: Fair Do you need to take naps? No Does the patient need interventions or same day appointment:No ADDITIONAL FOLLOW UP: The next outreach call is due on: TBD and was scheduled patient instructed to call with worsening/ongoing symptoms. The following lab tests are due: CBC/CMP next Thursday. Verified patient is aware of next appointment in the cancer center: Yes. Verified patient verbalized how to correctly refill the oral agent prescription. Yes Does the patient have any financial difficulties affording this medication? No Patient verbalizes understanding of when to seek Medical Attention? YES Patient verbalizes understanding of after-hours and weekend phone number? YES Patient verbalized importance of medication compliance in taking the oral agent as prescribed. Patient instructed to call if unable to comply. Shankar Alexander RN documented in this encounter [facility] 04-25-2022 Miscellaneous Notes PSYCHOSOCIAL ASSESSMENT Date of Service: April 25, 2022 Bassam Cisneros is a 76 year old female being seen for initial social work assessment. Bassam was noted on the pro-taussig report for 1st time oral chemotherapy treatment indicating SW outreach. SW called pt this date to complete assessment. Diagnosis: Bone metastases (HCC); Malignant 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, estrogen receptor positive (HCC) Recurrence Primary Oncologist: Cheko Stanford DO Radiation Oncologist: EDD Goals of Care: Quality of life, disease management Today's visit includes: self/patient Family History of Cancer: Other SUPPORT NETWORK: Marital status: Parent(s): Mother is and Father is Child/Children: Yes. How many? 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 No EMPLOYMENT/FINANCIAL/HEALTH INSURANCE: Employment: Retired Income source: Social Security Insurance: Medicare with co-insurance Prescription coverage: Yes Is the patient appropriate for referral to [facility] COBRA Assistance program? No Financial Distress: No : No FOOD INSECURITY Within the past year, have you worried about how you would buy or obtain food? No LIVING ARRANGEMENTS: Type: House- independent ranch Resides with: Alone FUNCTIONAL STATUS: Cognitive limitations: none Physical limitations: fatigue Language barrier: No Hearing Impaired: No Speech Impaired: No Visual Impairments: No Special considerations/accommodations needed: No HEALTH LITERACY: Do you have difficulty understanding medical instructions or other written materials you receive from you doctor or pharmacy? No Do have difficulty filling out medical forms by yourself? No The following interventions were put into place: NA MEDICATION ADHERENCE: Within the past 2 weeks, have you had difficulty remembering to take your medicine? No Within the past 2 weeks, did you ever miss taking your medications for reasons other than forgetting? No The following interventions were put into place: NA MENTAL HEALTH HISTORY: No History of combat/trauma: No Substance Use and Treatment History: denied History of Abuse: No Issues with: Sleep:No Eating:No Exercising: No Stress Management: No ADVANCE DIRECTIVES/LEGAL DOCUMENTS: Living Will: Not addressed during this encounter Scanned into EPIC: Not addressed during this encounter Health Care Durable Power of Directional Driller: Not addressed during this encounter Scanned into EPIC: Not addressed during this encounter Guardianship: No Scanned into EPIC:No Reasons Advanced Directives were not Addressed: Other pt fatigued COPING STATUS: Coping Strengths: supportive relationships with immediate family spirituality successful managing past crises hopefulness self advocate strong problem-solving skills ability to plan able to follow direction consistently over time able to communicate effectively future oriented and able to identify goals Current affect/mood: appropriate and fatigued History of Loss: Yes, parents Adjustment to diagnosis: reflecting understanding and responding appropriately BARRIERS/CARE CHALLENGES: Limited support systems locally. Pt reports her tow adult sons live in [place]. Her three grandchildren live there as well. Pt lives alone and doesn't have many local supports. Are barriers/care challenges identified likely to have an impact on the patient's quality of life during treatment? No INTERVENTIONS/REFERRALS TO BE PROVIDED: Monitor patient response to treatment Communicate pertinent medical/psychosocial information to Cancer Center team Provide emotional support to patient/family Continue follow up as needed Resources and Referrals: Internal: Pinky Chou External: N/A CLINICAL IMPRESSION: Bassam is a 76 year old female beginning a new oral chemotherapy regimen. She reports she is doing well and has no concerns or needs at this time. She does report a limited social support system as her family all lives out of state. She reports she has been approved for a becca for free medication for this new regimen and has no financial concerns. SW oriented pt to SW role and discussed available resources/referrals. SW encouraged pt to reach out if any needs or concerns arise. Pt is in agreement. Psychosocial Risk Criteria If positive for one or more of the following risk criteria, follow up every 30 days Age: >70 Mental Health: NA Practical Needs: Limited Social Support PLAN: SW to follow pt at upcoming appointments and remain in contact with pt throughout treatment to address any psychosocial concerns if needed. Follow up appointment with SW in: ARIELLA Wood documented in this encounter [facility] 04-15-2022 History of Present illness Narrative Images from the original note were not included. [facility] Department of Pharmacy Oncology Pharmacy Medication Education Patient Name: Bassam Cisneros Primary Oncologist: Dr. Cheko Stanford Diagnosis: Metastatic breast cancer, ER/NE+, HER2- Bassam Cisneros is a 76 year old patient called today for medication education for PO Verzenio . Drug Interactions: Clinically significant interactions with chemotherapy, immunosuppression, or other standard of care treatment plan medications anticipated: No. There are no pertinent drug interactions identified. Patient was counseled accordingly. Allergies: Patient confirmed allergies documented in Epic are correct: Yes Was medication education provided?: Yes Medication Education: Administration and schedule: Verzenio 50mg po bid (with intentional dose reduction) to be initiated on 04/20/22 Potential side effects discussed: anemia, bowel habit changes, fatigue, hair loss, infection, kidney toxicity, stomatitis, elevated LFT's, cough, fever. PO chemo: Verified patient understands where to store the drug. Yes Verified that patient understands prescription delivery, benefit investigation and refill process. Yes Was medication reconciliation performed?: Yes Changes made to medication list? Yes The following medications were updated within the home medication list: Medications DISCONTINUED from home medication list: Ferrous sulfate Patient reported that she takes a turmeric supplement, though it is not on her med list. I instructed her to stop this as we are unsure if it will interact with any of her cancer treatments. Current Outpatient Medications Medication Sig anastrozole (ARIMIDEX) 1 mg tablet Take 1 tablet by mouth once daily. abemaciclib (VERZENIO) 50 mg tablet Take 1 tablet (50 mg) by mouth twice daily. FERROUS SULFATE ORAL Take by mouth once daily. insulin aspart U-100 (NOVOLOG U-100 INSULIN ASPART) 100 unit/mL 40 units daily for insulin pump use. E10.22, N18.3, Z96.41 levothyroxine (SYNTHROID) 25 mcg tablet Take 1 tablet by mouth once daily. metoprolol succinate ER (TOPROL XL) 100 mg Tb24 Take 100 mg by mouth once daily. simvastatin 10 mg tablet Take 10 mg by mouth daily at bedtime. ranolazine ER (RANEXA) 500 mg 12 hr tablet Take one(1) tablet daily. No current facility-administered medications for this visit. METHOD OF INSTRUCTION: Individual instruction PATIENT/FAMILY RESPONSE: Verbalizes understanding of: CHEMOTHERAPY-Regimen, toxicity and side effects FOLLOW UP PLAN: Patient instructed to call with any further issues SUPPLEMENTAL MATERIAL: Written material was provided at this visit with the following information - Chemotherapy education was provided by a pharmacist YES - Provided important phone numbers and contacts during and after hours. YES-provided by RNCC - Provided information on symptoms that require immediate assistance. YES - Provided Chemotherapy when to call handouts YES - Preventing infection. YES; provided by RNCC - Treatment schedule and confirmation of appointment times. YES; provided by RNCC - Available support groups. NA - The importance of contraception during the course of chemotherapy NA Readiness to Learn COGNITIVE ABILITY: Alert and oriented MOTIVATION TO LEARN: Eager FAMILY SUPPORT: None - Unavailable/disinterested INSTRUCTION PROVIDED TO: Patient INSTRUCTION PROVIDED BY: Pharmacist PATIENT LEARNS BEST BY: Individual Instruction FACTORS AFFECTING LEARNING: None PHYSICAL LIMITATIONS AFFECTING LEARNING: None Thank you for allowing us to participate in the care of this patient. I spent 30 time (15 minute increments) with the patient Celina Malone RPh documented in this encounter [facility] 04-14-2022 History of Present illness Narrative Attemped to call patient for follow-up Verzenio oral chemo education & medication reconciliation. Left a voicemail. Celina Malone, Gabino.Ph. Regional Oncology Clinical Pharmacist Electronically signed by Celina Malone [facility] at 04/14/2022 2:52 PM EDT documented in this encounter [facility] 04-08-2022 Miscellaneous Notes Patient started/will start taking verzenio on 04/20/2022. Shankar Alexander RN Spoke with PT and scheduled as directed below. Thank you! Cecilia Lainez Okay to start on 04/20. Weekly CBC/CMP and CBC/CMP/CA 27-29/CA 15-3 at the time of her office visit in May. Cheko Stanford DO Patient has verzenio on hand but stated she will not start until 04/20/22. Patient is going out of town to see her grandchildren. Patients next appointment with our office is 06/05/22, BMP/BP check/xgeva. Please advise follow-up plan. Thank you. Shankar Alexander RN ORAL ANTI-CANCER AGENTS EDUCATION patient called today for oral medication education for Verzenio for Breast Cancer READINESS TO LEARN Cognitive Ability: Alert and oriented Motivation to Learn: Interested Family Support: Unable to assess - Family not present Instruction Provided to: Patient Patient learns best by: Individual Instruction Written Instruction - Hand-outs Verbal Instruction Multiple Methods Factors affecting learning: None Physical limitation affecting learning: None MAIN ASSESSMENT: 1.) Verified that patient knows that the oral agents are for cancer and are taken by mouth. Yes 2.) Medication reconciliation completed during visit. No 3.) Patient is able to swallow pills. Yes 4.) Patient is able to read the drug label/information. Yes 5.) Patient is able to open the medication bottles and packages. Yes all mine are easy open so far 6.) Has patient taken other pills for cancer? YES, please explain: Ibrance 7.) Is patient experiencing any symptoms that would affect their ability to keep down pills, for example nausea or vomiting? No 8.) Verified that patient understands prescription delivery, benefit investigation and refill process. Yes PATIENT EDUCATION: 1.) Verified that patient attended individualized instruction on chemotherapy taught by a nurse. Yes 2.) Verified that patient received Chemotherapy Safety in the Home handout, Specialty Pharmacy Information : Specialty Pharmacy phone numbers, Eating Hints Booklet, and [facility] Oral Chemotherapy booklet: Yes DRUG-SPECIFIC EDUCATION: 1.) Verified that patient knows the drug name. Yes 2.) Verified patient understands the dose and schedule of oral chemo agent:with water, with or without food. Yes 3.) Verified patient knows what to do if a medication dose is missed. Yes 4.) Verified patient understands where to store the drug. Yes 5.) Verified patient understands potential side effects and how to manage them. Yes Nausea , Diarrhea, Fever / Chills / Risk for Neutropenic Fever, Neutropenia, Thrombocytopenia, Anemia, and Fatigue 6.)Verified that patient understands handling precautions of oral chemo agent. Yes 7.) Verified that patient understands when and whom to call with questions. Yes 8.) Verified that patient understands where and how to return drug. Yes EVALUATE: Patient was able to demonstrate an understanding of all the above education using the teach-back method. Yes Patient instructed to call us with any questions, concerns, and/or unresolved symptoms. Will continue to follow up with patient and provide reinforcement of teaching topics as needed. Total time spent with patient: 20 minutes Total time spent on encounter: 25 minutes Shankar Alexander RN Pt. Returned call, Andrea teixeira ,pt. Informed she will be home remainder of afternoon shankar can try anytime . Caitlin Holloway LPN ORAL ANTI-CANCER AGENTS EDUCATION Called patient, left a requesting a call back from patient. Shankar Alexander RN ORAL ANTI-CANCER AGENTS EDUCATION patient here today for oral medication education for Verzenio for Breast Cancer Called patient, call did not connect. Message stated patient was unavailable. Shankar Alexander RN documented in this encounter [facility] 03-13-2022 History of Present illness Narrative [facility] received prescription(s) for Verzenio from Dr. Stanford's office. Benefits investigation was conducted, indicating that a prior authorization is required by patient's insurance plan with [employer]. Encounter will be updated once prior authorization has been submitted by [facility]. ZEN Sky documented in this encounter [facility] 03-13-2022 History of Present illness Narrative Pt here for injection of Xgeva. Given sq in right arm. Pt tolerated well. For all other information regarding today, see today's OV note with Dr Stanford. Claudia Henderson LPN documented in this encounter [facility] 03-07-2022 Miscellaneous Notes Order filed. Cheko Stanford DO Pended. Claudia Henderson LPN When placing orders for pt please make this order (creatinine ,bmp or cmp) stats stat please , pt's appt Is on 03/10/22 , for CT documented in this encounter [facility] 12-19-2021 History of Present illness Narrative Pt here for injection of xgeva. Given IM in right arm. Pt tolerated well. Claudia Henderson LPN documented in this encounter [facility] 12-19-2021 History of Present illness Narrative CASE [id number] ([id number]): Tissue and Body Fluid Analysis from Patients with Cancer and Other Risk- Associated Lesions Patient seen in clinic for informed consent of the above mentioned protocol. Patient agrees to participate in the above mentioned research study. The patient has signed a copy of the informed consent. Patient has contact information for the study team and Dr. Shiraz Blank M.D. (Masci is out on vacation). See consent note in Epic. Patient eligible for a research blood draw. Karen Helm RN documented in this encounter [facility] 12-03-2021 History of Present illness Narrative Diagnosis: 1) Metastatic breast cancer. HPI: The patient is a 76-year-old female with a past medical history significant for DM1 (dx age 31--started on insulin at diagnosis), CKD stage 3, hypothyroidism, hyperlipidemia, HTN and CAD (sees Dr. Cifuentes, was told in the past she has ?smaller caliber coronary arteries; medically managed with ranolazine; most recent echocardiogram showed ejection fraction 60% with stage II diastolic dysfunction). She noticed left nipple inversion in May 2019. Prior to that she had a screening mammogram in October 2018 which evidently revealed dense breast tissue without lesion. Mammogram performed to workup the complaint of breast mass again showed dense breast tissue with no discrete lesion. Ultrasound revealed a hypoechoic irregular masses with the first at the 3:00 position 3 cm in the nipple and the second at the 6:00 position 6 cm from the nipple both with posterior shadowing. Patient underwent ultrasound-guided left breast biopsy on 06/23/2019. Pathology: MICROSCOPIC DIAGNOSIS A. Left breast mass at 2 o clock, needle core biopsy: Invasive lobular carcinoma with the following characteristics: Maximal length 7 millimeters Nuclear grade 1 See comment. B. Left breast mass at 5 o clock, needle core biopsy: Invasive lobular carcinoma with the following characteristics: Maximal length 8 millimeters Nuclear grade 1 See comment. COMMENT A & B. ER/NE/[id number] studies are being performed on sections of tumor and the results from this study will be reported separately ([id number]). MORPHOMETRIC ANALYSIS ER (clone [id number]) >95%, strong intensity NE (clone 16/1E2) 83%, moderate to strong intensity Her-2Neu (clone [id number]) 0 MRI Breast 06/30/2019: RIGHT BREAST: The breast tissue is heterogeneously dense with minimal background enhancement. There are no abnormal enhancing masses or areas of non-mass enhancement in the right breast. LEFT BREAST: The breast tissue is heterogeneously dense. 7 mm irregular enhancing lesion at the 2:00 position of the left breast approximately 5 cm from the nipple. Extensive non-mass enhancement of the left breast in an area measuring approximately 7 cm x 8 cm extending to the subareolar region of the left breast with retraction of the nipple. Extensive enhancement in the subareolar region of the retracted nipple (sagittal series 7 images 6-18). This extensive non-mass enhancement is highly suspicious for contiguous parenchymal malignancy, especially since the enhancement extends to the subareolar region and there is nipple retraction. There are no enlarged or abnormal lymph nodes. There is no abnormality in the visualized regions of the chest or liver. IMPRESSION: Index lesion at the 2:00 position with irregular enhancement as described. Extensive non-mass enhancement extending involving the upper and lower quadrants of the left breast extending to the subareolar region of the nipple, highly suspicious for parenchymal malignant involvement. No abnormality in the right breast. No adenopathy identified. Underwent left modified radical mastectomy with sentinel lymph node biopsy followed by immediate left axillary lymph node dissection on 08/05/2019. Pathology: FROZEN SECTION DIAGNOSIS A. [place] lymph nodes, biopsy: Two out of two lymph nodes, positive for metastatic carcinoma. MICROSCOPIC DIAGNOSIS A. Left axillary sentinel lymph nodes, biopsy: Two out of two lymph nodes positive for metastatic carcinoma. Extranodal tumor extension measures 7 mm in greatest dimension. B. Left breast, modified radical mastectomy: Invasive lobular carcinoma. See cancer checklist below. C. New superior margin, excision: Invasive lobular carcinoma. True margins are negative for carcinoma. D. New inferior skin margin, excision: Invasive lobular carcinoma. Cutaneous margin is free of carcinoma. Invasive carcinoma is present at 1.5 mm from the inferior margin. E. Left axillary sentinel lymph nodes, regional lymph adenectomy: 16 out of 16 lymph nodes with metastatic carcinoma. Multifocal extranodal extension (ranging in size from 1 to 6 mm). F. New inferior margin, excision: Invasive lobular carcinoma. True inferior margin is free of carcinoma. Carcinoma is located at 13 mm from true margin. COMMENT BREAST CANCER SUMMARY Procedure: Modified radical mastectomy Specimen: Type: Full breast Size: 21 x 15 x 6 cm Laterality: Left breast Invasive Tumor: Size: 9 x 8 x 6 cm Focality: Multiple foci of invasive carcinoma (largest focus 9 x 8 x 6 cm) Histologic type: Invasive lobular carcinoma. 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 Skeletal muscle: Free of carcinoma. Margins Involved by Invasive Carcinoma: Distance from closest margin: 13 mm from inferior margin Margins Involved by In Situ Carcinoma: Distance from closest margin: 22 mm from inferior margin Lymph Nodes: Number of sentinel lymph nodes examined: 2/2 with metastatic carcinoma and extranodal tumor. Total number of lymph nodes examined: 18 Number of lymph nodes positive for macrometastatic carcinoma 18 out of 18 with extranodal extension ranging in size from 1 to 7 mm in greatest dimension. See specimens A & E. Microcalcifications: Present in neoplastic and non-neoplastic tissue. Treatment Effect: Unknown Additional Pathologic Findings: Atypical lobular hyperplasia and atypical intraductal hyperplasia closely approaching DCIS, (2.0mm in greatest dimension). Ancillary Studies: Previously performed on same tumor ([id number] / [id number]) ER: >95%, strong intensity NE: 83%, moderate to strong intensity Her2: 0 Clinical History: Mass of breast Pathologic Stage: pT3 N3a Mx Underwent CT scan of the chest, abdomen and pelvis on 09/13/2019. She was noted to have mild dilation of the common bile duct and intrahepatic bile ducts with no other evidence of metastatic disease. Images of the chest revealed postsurgical changes involving the left breast with subcentimeter pulmonary nodules measuring up to 2 mm in size. Sclerosis involving the T2 vertebral body as well as a portion of the T4 vertebral body were observed. MRI of the brain revealed a nonspecific 3 mm focus of enhancement along the anterior falx possibly representing a tiny meningioma with other neoplastic etiology being less likely. There was also patchy marrow heterogeneity within the calvarium and was indeterminant. Whole-body bone scan on 09/15/2019 demonstrated scattered foci of uptake suspicious for osseous metastasis in the thoracic spine at the T3/T2 level, possibly T9 level, sternum, right midhumerus, scattered ribs on the right ninth level. MRI Thoracic spine 09/27/2019: Osseous metastatic disease involving the T1/T2 vertebral bodies without superimposed pathologic fracture or discrete extraosseous/epidural extension. No additional suspicious lesions identified in the remaining thoracic spine. No high-grade canal or foraminal stenosis. Current therapy: 1) Anastrozole and palbociclib. Dose incrementally decreased due to prolonged thrombocytopenia/neutropenia. 2) Xgeva due to CKD. Recent history: She had a PET scan on 09/11/2021 that demonstrated no evidence of FDG avid increased glucose metabolism. She was admitted to [facility] 10/25 through 11/07 for neutropenic fever. Per d/c summary: 10/29: Patient still having intermittent fever. On Vanco and meropenem. IV Lasix 40 mg given this morning. On high flow oxygen Airvo. Oncologist consult reviewed. Granix 3 mg subcu daily for neutropenia. Jairon is on hold. Continue anastrozole 1 mg once daily. 2D echo shows EF 70% LV systolic function normal, trivial MR TR and eccentric AR. ID consult reviewed. Recommended if no answer found or not improving over the next 1 to [address] abdomen pelvis with contrast and bone marrow biopsy. 10/30: Incentive spirometry and Pep For bronchopulmonary hygiene. Acidophilus added for possible antibiotic related loose bowel movement. No fever last night. Furosemide 40 mg IV 1 dose given. WBC count improving. Patient still is pancytopenic. Monitor CBC 10/31: Hypoxia worsened on high flow oxygen. Patient agreeable for Airvo. Cultures reviewed. Blood cultures negative for more than 48 hours. EBV CMV pending. No fever in last 48 hours. Vancomycin discontinued, continue meropenem as recommended by ID. ID consult reviewed 11/01: Airvo 65% FiO2, patient is being taken for bronchoscopy. Bronchoscopy showed erythema present throughout tracheobronchial tree BAL performed in lingula and right middle lobe. Patient continued to be hypoxic on high FiO2 with bilateral crepitations. Cultures so far negative. Continue to be pancytopenic. 11/02: Patient had bronchoscopy yesterday. BAL preliminary gram stain shows 1-2+ mixed gram-positive organism. Enteric bacteriology panel negative. EBV and histoplasma antibody pending. 11/03: Last chest x-ray on 10/31 shows increased infiltrate in the right lung and nodularity at right lower lung field therefore possibility of bilateral pneumonitis due to Ibrance. Prelim gram stain of bronc shows mixed 2+ gram-positive organism. Patient on 50% FiO2 Airvo. Hemoglobin 7.3 and platelet count 81,000. Mild improvement in platelet count. Neutropenia resolved. ANC 8.2 thousand. DC Granix. Patient hypoxia is constant on 50% FiO2, therefore transferred to PCU. 11/04: BAL cx showing actinomyces. On amp/SB. CXR shows overall improvement from 10/31. Will defer to pulm if CTA imaging necessary. 11/07: change abx to amoxicillin and treat for 3 more days to complete a 7 day course. She was discharged to [facility]. She is currently on oxygen supplemental 3 L/min. She feels her respiratory status is improving. She is participating in physical therapy on a daily basis. She received red blood cell transfusion yesterday. She has no complaints of pain other than stable left-sided sciatica pain. She continues on anastrozole. Ibrance has been discontinued. Presents for ongoing oncologic management. Interim history: She has been discharged home. She is doing home physical therapy. She is capable of her ADLs and IADLs but she can go up and down steps secondary to left-sided sciatica and left iliotibial band syndrome. She had this in the past and it got better with injection therapy but since she is been doing physical therapy it is flared up. No complaints of musculoskeletal pain tolerating anastrozole. No recurring fevers. No unusual bleeding or unexplained bruising. PMH, medications and allergies personally reviewed by me today. Any changes documented in appropriate section. ROS: Constitutional: Denies episodes of fever and night sweats. Neuro: Denies WYNNE. HEENT: No recent change in voice, vision or hearing (has hearing aids). Resp: Denies cough, wheeze and hemoptysis. Denies shortness of breath at rest. CVS: Denies exertional chest pain, PND, orthopnea and LE edema. GI: Denies dysphagia and odynophagia. : Denies dysuria or gross hematuria. Endo: Denies hot flashes. Denies polyuria and polydipsia. Denies heat and cold intolerance. Musculoskeletal: See above. Derm: Denies rash. Denies jaundice and diffuse pruritis. Heme: See above. Psych: Normal mood. PHYSICAL EXAM: Vitals: Blood pressure 138/73, pulse 69, temperature (!) 35.7 C (96.2 F), weight 61.2 kg (135 lb), SpO2 96 %. Well-appearing and in no acute distress. EYES: Sclerae are anicteric bilaterally. LYMPHATIC: There is no palpable cervical, supraclavicular or axillary adenopathy. RESPIRATORY: Inspiratory breath sounds are of normal intensity in all snyder. CARDIOVASCULAR: Rhythm is regular. BREAST: Left mastectomy site--no chest wall mass or nodule. ABDOMEN: The abdomen is nondistended. Extremities: No swelling or edema. SKIN: No jaundice or rash. No petechiae. NEUROLOGIC: training consultant II-XII are grossly intact. She still has generalized lower extremity weakness and needs help stepping up onto the exam table. LABS: Component Latest Ref Rng & Units 11/20/2021 WBC 3.70 - 11.00 k/uL 4.58 RBC 3.90 - 5.20 m/uL 3.70 (L) Hemoglobin 11.5 - 15.5 g/dL 12.1 Hematocrit 36.0 - 46.0 % 36.1 MCV 80.0 - 100.0 fL 97.6 MCH 26.0 - 34.0 pg 32.7 MCHC 30.5 - 36.0 g/dL 33.5 RDW-CV 11.5 - 15.0 % 17.3 (H) Platelet Count 150 - 400 k/uL 148 (L) MPV 9.0 - 12.7 fL 9.7 Neut% % 39.7 Abs Neut (ANC) 1.45 - 7.50 k/uL 1.82 Lymph% % 30.8 Abs Lymph 1.00 - 4.00 k/uL 1.41 Wayne% % 21.8 Abs Wayne <0.87 k/uL 1.00 (H) Eosin% % 4.6 Abs Eosin <0.46 k/uL 0.21 Baso% % 2.0 Abs Baso <0.11 k/uL 0.09 Immature Gran % % 1.1 IMMATURE GRANS (ABS) <0.10 k/uL 0.05 NRBC /100 WBC 0.0 Absolute nRBC <0.01 k/uL <0.01 DTYPE Auto Component Latest Ref Rng & Units 11/20/2021 Protein, Total 6.3 - 8.0 g/dL 6.4 Albumin 3.9 - 4.9 g/dL 3.4 (L) Calcium 8.5 - 10.2 mg/dL 9.8 Bilirubin, Total 0.2 - 1.3 mg/dL 0.4 Alkaline Phosphatase 34 - 123 U/L 75 AST 13 - 35 U/L 31 ALT 7 - 38 U/L 20 Glucose 74 - 99 mg/dL 165 (H) BUN 7 - 21 mg/dL 20 Creatinine 0.58 - 0.96 mg/dL 1.26 (H) Sodium 136 - 144 mmol/L 136 Potassium 3.7 - 5.1 mmol/L 3.9 Chloride 97 - 105 mmol/L 95 (L) CO2 22 - 30 mmol/L 32 (H) Anion Gap 9 - 18 mmol/L 9 eGFR >=60 mL/min/1.73m 44 (L) ASSESSMENT/PLAN: (C50.812, Z17.0) Malignant 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, estrogen receptor positive (HCC) (primary encounter diagnosis) (C79.51) Bone metastases (HCC) Assessment: -cT3 cN0 M0 ER/NE positive, HER2 negative infiltrating lobular carcinoma of the left breast. -pT3 pN3a MX stage IIIC ER/NE positive, HER2 negative infiltrating lobular carcinoma of the left breast. -Was found to have bone metastases on staging work-up post mastectomy. -Tumor markers normal at baseline. -Haven't routinely been getting CT due to CKD. -PET scan at the end of August suggested BLAKE. -Recently prolonged hospitalization for pneumonia with ARDS and pancytopenia. -Reviewed bone scan. BLAKE. -Since had recent prolonged hospitalization for sepsis and hypoxemic ventilatory failure and prolonged recovery, I advised holding off on CD 4/6 inhibitor given the good results of her bone scan currently and her recovering functional status. Plan: -Agree home PT. -Continue anastrozole. -Resume Xgeva on an every 3 month schedule. -Add Verzenio low dose at next visit of when has PD. -CTs and bone scan then OV in about 3 months. Portions of this documentation were copied and pasted from previous office visit notes in order to provide a cohesive continuity of the history. The note has been reviewed and edited and updated as necessary. During this patient visit I have spent approximately 20 minutes out of 25 in counseling regarding treatment options, medications, answering questions and discussing plan of care. Cheko Stanford DO documented in this encounter [facility] 11-28-2021 History of Present illness Narrative RADIOLOGY SERVICE PROGRESS NOTE SERVICE DATE: 11/28/2021 SERVICE TIME: 07:35 AM PATIENT IDENTITY VERIFICATION COMPLETED USING TWO (2) STANDARD IDENTIFIERS: Name and Date of confirmed by patient verbally FALL SCREENING: Has the patient had 2 falls in the last year or 1 fall with injury or currently using an Ambulatory Assistive Device (Walker, Cane, Wheelchair, Crutches, etc.)? Yes, Patient High Risk for Falls What interventions were put in place to prevent falls during this visit? Instructed Patient to Call for Help if Needed, Offered Assistance with Transfers/Clothing, Instructed Patient to Remain Seated (Not on Exam Table) Until Exam, Increased Observations by Caregivers and Escorted to/from Restroom PATIENT GENDER DATA: .female : No ALLERGIES: Reviewed and unchanged MEDICATIONS REVIEWED: No PATIENT RELEVANT IMPLANT DATA REVIEWED: Not Applicable CREATININE: Creatinine Date Value Ref Range Status 11/28/2021 1.26 (H) 0.58 - 0.96 mg/dL Final 11/20/2021 1.26 (H) 0.58 - 0.96 mg/dL Final 09/19/2021 1.25 (H) 0.58 - 0.96 mg/dL Final Estimated Glomerular Filtration Rate Date Value Ref Range Status 11/28/2021 44 (L) >=60 mL/min/1.73m Final Comment: Estimated Glomerular Filtration Rate (eGFR) is calculated using the 2020 CKD-EPI creatinine equation. This equation utilizes serum creatinine, sex, and age as parameters. The creatinine assay has traceable calibration to isotope dilution-mass spectrometry. Refer to KDIGO guidelines for clinical interpretation. In patients with unstable renal function, e.g. those with acute kidney injury, the eGFR may not accurately reflect actual GFR. eGFR- Date Value Ref Range Status 07/25/2021 40 Final P.O.C.T. RESULTS: N/A November 28, [address] PERFORMED: No IV SITE: Ambulatory: NM only - direct IV injection in the Right hand POST EXAM PIV STATUS: Discontinued PROCEDURE TYPE: NM INJECT: Whole Body Bone Scan. 20.9 mCi Tc99m MDP. No other medications given.. ADMINISTRATION TIME: 07:45 PATIENT DISCHARGED TO: Ambulatory patient, left [place] department area. A Diagnostic radioactive procedure has taken place, with no further precautions necessary other than routine body substance precautions. More information regarding radiation safety can be found using this link: [email or web address] SIGNATURE: VERNON Alexandre PATIENT NAME: Bassam Cisneros DATE: November 28, 2021 TIME: 9:11 AM PAGER/CONTACT #: documented in this encounter [facility] 11-20-2021 History of Present illness Narrative Diagnosis: 1) Metastatic breast cancer. HPI: The patient is a 76-year-old female with a past medical history significant for DM1 (dx age 31--started on insulin at diagnosis), CKD stage 3, hypothyroidism, hyperlipidemia, HTN and CAD (sees Dr. Cifuentes, was told in the past she has ?smaller caliber coronary arteries; medically managed with ranolazine; most recent echocardiogram showed ejection fraction 60% with stage II diastolic dysfunction). She noticed left nipple inversion in May 2019. Prior to that she had a screening mammogram in October 2018 which evidently revealed dense breast tissue without lesion. Mammogram performed to workup the complaint of breast mass again showed dense breast tissue with no discrete lesion. Ultrasound revealed a hypoechoic irregular masses with the first at the 3:00 position 3 cm in the nipple and the second at the 6:00 position 6 cm from the nipple both with posterior shadowing. Patient underwent ultrasound-guided left breast biopsy on 06/23/2019. Pathology: MICROSCOPIC DIAGNOSIS A. Left breast mass at 2 o clock, needle core biopsy: Invasive lobular carcinoma with the following characteristics: Maximal length 7 millimeters Nuclear grade 1 See comment. B. Left breast mass at 5 o clock, needle core biopsy: Invasive lobular carcinoma with the following characteristics: Maximal length 8 millimeters Nuclear grade 1 See comment. COMMENT A & B. ER/NE/[id number] studies are being performed on sections of tumor and the results from this study will be reported separately ([id number]). MORPHOMETRIC ANALYSIS ER (clone [id number]) >95%, strong intensity NE (clone 16/1E2) 83%, moderate to strong intensity Her-2Neu (clone [id number]) 0 MRI Breast 06/30/2019: RIGHT BREAST: The breast tissue is heterogeneously dense with minimal background enhancement. There are no abnormal enhancing masses or areas of non-mass enhancement in the right breast. LEFT BREAST: The breast tissue is heterogeneously dense. 7 mm irregular enhancing lesion at the 2:00 position of the left breast approximately 5 cm from the nipple. Extensive non-mass enhancement of the left breast in an area measuring approximately 7 cm x 8 cm extending to the subareolar region of the left breast with retraction of the nipple. Extensive enhancement in the subareolar region of the retracted nipple (sagittal series 7 images 6-18). This extensive non-mass enhancement is highly suspicious for contiguous parenchymal malignancy, especially since the enhancement extends to the subareolar region and there is nipple retraction. There are no enlarged or abnormal lymph nodes. There is no abnormality in the visualized regions of the chest or liver. IMPRESSION: Index lesion at the 2:00 position with irregular enhancement as described. Extensive non-mass enhancement extending involving the upper and lower quadrants of the left breast extending to the subareolar region of the nipple, highly suspicious for parenchymal malignant involvement. No abnormality in the right breast. No adenopathy identified. Underwent left modified radical mastectomy with sentinel lymph node biopsy followed by immediate left axillary lymph node dissection on 08/05/2019. Pathology: FROZEN SECTION DIAGNOSIS A. [place] lymph nodes, biopsy: Two out of two lymph nodes, positive for metastatic carcinoma. MICROSCOPIC DIAGNOSIS A. Left axillary sentinel lymph nodes, biopsy: Two out of two lymph nodes positive for metastatic carcinoma. Extranodal tumor extension measures 7 mm in greatest dimension. B. Left breast, modified radical mastectomy: Invasive lobular carcinoma. See cancer checklist below. C. New superior margin, excision: Invasive lobular carcinoma. True margins are negative for carcinoma. D. New inferior skin margin, excision: Invasive lobular carcinoma. Cutaneous margin is free of carcinoma. Invasive carcinoma is present at 1.5 mm from the inferior margin. E. Left axillary sentinel lymph nodes, regional lymph adenectomy: 16 out of 16 lymph nodes with metastatic carcinoma. Multifocal extranodal extension (ranging in size from 1 to 6 mm). F. New inferior margin, excision: Invasive lobular carcinoma. True inferior margin is free of carcinoma. Carcinoma is located at 13 mm from true margin. COMMENT BREAST CANCER SUMMARY Procedure: Modified radical mastectomy Specimen: Type: Full breast Size: 21 x 15 x 6 cm Laterality: Left breast Invasive Tumor: Size: 9 x 8 x 6 cm Focality: Multiple foci of invasive carcinoma (largest focus 9 x 8 x 6 cm) Histologic type: Invasive lobular carcinoma. 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 Skeletal muscle: Free of carcinoma. Margins Involved by Invasive Carcinoma: Distance from closest margin: 13 mm from inferior margin Margins Involved by In Situ Carcinoma: Distance from closest margin: 22 mm from inferior margin Lymph Nodes: Number of sentinel lymph nodes examined: 2/2 with metastatic carcinoma and extranodal tumor. Total number of lymph nodes examined: 18 Number of lymph nodes positive for macrometastatic carcinoma 18 out of 18 with extranodal extension ranging in size from 1 to 7 mm in greatest dimension. See specimens A & E. Microcalcifications: Present in neoplastic and non-neoplastic tissue. Treatment Effect: Unknown Additional Pathologic Findings: Atypical lobular hyperplasia and atypical intraductal hyperplasia closely approaching DCIS, (2.0mm in greatest dimension). Ancillary Studies: Previously performed on same tumor ([id number] / [id number]) ER: >95%, strong intensity NE: 83%, moderate to strong intensity Her2: 0 Clinical History: Mass of breast Pathologic Stage: pT3 N3a Mx Underwent CT scan of the chest, abdomen and pelvis on 09/13/2019. She was noted to have mild dilation of the common bile duct and intrahepatic bile ducts with no other evidence of metastatic disease. Images of the chest revealed postsurgical changes involving the left breast with subcentimeter pulmonary nodules measuring up to 2 mm in size. Sclerosis involving the T2 vertebral body as well as a portion of the T4 vertebral body were observed. MRI of the brain revealed a nonspecific 3 mm focus of enhancement along the anterior falx possibly representing a tiny meningioma with other neoplastic etiology being less likely. There was also patchy marrow heterogeneity within the calvarium and was indeterminant. Whole-body bone scan on 09/15/2019 demonstrated scattered foci of uptake suspicious for osseous metastasis in the thoracic spine at the T3/T2 level, possibly T9 level, sternum, right midhumerus, scattered ribs on the right ninth level. MRI Thoracic spine 09/27/2019: Osseous metastatic disease involving the T1/T2 vertebral bodies without superimposed pathologic fracture or discrete extraosseous/epidural extension. No additional suspicious lesions identified in the remaining thoracic spine. No high-grade canal or foraminal stenosis. Current therapy: 1) Anastrozole and palbociclib. Dose incrementally decreased due to prolonged thrombocytopenia/neutropenia. 2) Xgeva due to CKD. Presents for ongoing oncologic management. Interim history: She had a PET scan on 09/11/2021 that demonstrated no evidence of FDG avid increased glucose metabolism. She was admitted to [facility] 10/25 through 11/07 for neutropenic fever. Per d/c summary: 10/29: Patient still having intermittent fever. On Vanco and meropenem. IV Lasix 40 mg given this morning. On high flow oxygen Airvo. Oncologist consult reviewed. Granix 3 mg subcu daily for neutropenia. Jairon is on hold. Continue anastrozole 1 mg once daily. 2D echo shows EF 70% LV systolic function normal, trivial MR TR and eccentric AR. ID consult reviewed. Recommended if no answer found or not improving over the next 1 to [address] abdomen pelvis with contrast and bone marrow biopsy. 10/30: Incentive spirometry and Pep For bronchopulmonary hygiene. Acidophilus added for possible antibiotic related loose bowel movement. No fever last night. Furosemide 40 mg IV 1 dose given. WBC count improving. Patient still is pancytopenic. Monitor CBC 10/31: Hypoxia worsened on high flow oxygen. Patient agreeable for Airvo. Cultures reviewed. Blood cultures negative for more than 48 hours. EBV CMV pending. No fever in last 48 hours. Vancomycin discontinued, continue meropenem as recommended by ID. ID consult reviewed 11/01: Airvo 65% FiO2, patient is being taken for bronchoscopy. Bronchoscopy showed erythema present throughout tracheobronchial tree BAL performed in lingula and right middle lobe. Patient continued to be hypoxic on high FiO2 with bilateral crepitations. Cultures so far negative. Continue to be pancytopenic. 11/02: Patient had bronchoscopy yesterday. BAL preliminary gram stain shows 1-2+ mixed gram-positive organism. Enteric bacteriology panel negative. EBV and histoplasma antibody pending. 11/03: Last chest x-ray on 10/31 shows increased infiltrate in the right lung and nodularity at right lower lung field therefore possibility of bilateral pneumonitis due to Ibrance. Prelim gram stain of bronc shows mixed 2+ gram-positive organism. Patient on 50% FiO2 Airvo. Hemoglobin 7.3 and platelet count 81,000. Mild improvement in platelet count. Neutropenia resolved. ANC 8.2 thousand. DC Granix. Patient hypoxia is constant on 50% FiO2, therefore transferred to PCU. 11/04: BAL cx showing actinomyces. On amp/SB. CXR shows overall improvement from 10/31. Will defer to pulm if CTA imaging necessary. 11/07: change abx to amoxicillin and treat for 3 more days to complete a 7 day course. She was discharged to [facility]. She is currently on oxygen supplemental 3 L/min. She feels her respiratory status is improving. She is participating in physical therapy on a daily basis. She received red blood cell transfusion yesterday. She has no complaints of pain other than stable left-sided sciatica pain. She continues on anastrozole. Ibrance has been discontinued. No unusual bleeding or unexplained bruising. PMH, medications and allergies personally reviewed by me today. Any changes documented in appropriate section. ROS: Constitutional: Denies episodes of fever and night sweats. Neuro: Denies WYNNE. HEENT: No recent change in voice, vision or hearing (has hearing aids). Resp: Denies cough, wheeze and hemoptysis. Denies shortness of breath at rest. CVS: Denies exertional chest pain, PND, orthopnea and LE edema. GI: Denies dysphagia and odynophagia. : Denies dysuria or gross hematuria. Endo: Denies hot flashes. Denies polyuria and polydipsia. Denies heat and cold intolerance. Musculoskeletal: See above. Derm: Denies rash. Denies jaundice and diffuse pruritis. Heme: See above. Psych: Normal mood. PHYSICAL EXAM: Vitals: Blood pressure 148/75, pulse 71, temperature 36.2 C (97.1 F), SpO2 100 %. Well-appearing and in no acute distress. EYES: Sclerae are anicteric bilaterally. LYMPHATIC: There is no palpable cervical, supraclavicular or axillary adenopathy. RESPIRATORY: Inspiratory breath sounds are of normal intensity in all snyder. CARDIOVASCULAR: Rhythm is regular. BREAST: Left mastectomy site--not examined today. ABDOMEN: The abdomen is nondistended. Extremities: No swelling or edema. SKIN: No jaundice or rash. No petechiae. NEUROLOGIC: training consultant II-XII are grossly intact. LABS: Component Latest Ref Rng & Units 11/20/2021 WBC 3.70 - 11.00 k/uL 4.58 RBC 3.90 - 5.20 m/uL 3.70 (L) Hemoglobin 11.5 - 15.5 g/dL 12.1 Hematocrit 36.0 - 46.0 % 36.1 MCV 80.0 - 100.0 fL 97.6 MCH 26.0 - 34.0 pg 32.7 MCHC 30.5 - 36.0 g/dL 33.5 RDW-CV 11.5 - 15.0 % 17.3 (H) Platelet Count 150 - 400 k/uL 148 (L) MPV 9.0 - 12.7 fL 9.7 Neut% % 39.7 Abs Neut (ANC) 1.45 - 7.50 k/uL 1.82 Lymph% % 30.8 Abs Lymph 1.00 - 4.00 k/uL 1.41 Wayne% % 21.8 Abs Wayne <0.87 k/uL 1.00 (H) Eosin% % 4.6 Abs Eosin <0.46 k/uL 0.21 Baso% % 2.0 Abs Baso <0.11 k/uL 0.09 Immature Gran % % 1.1 IMMATURE GRANS (ABS) <0.10 k/uL 0.05 NRBC /100 WBC 0.0 Absolute nRBC <0.01 k/uL <0.01 DTYPE Auto Component Latest Ref Rng & Units 11/20/2021 Protein, Total 6.3 - 8.0 g/dL 6.4 Albumin 3.9 - 4.9 g/dL 3.4 (L) Calcium 8.5 - 10.2 mg/dL 9.8 Bilirubin, Total 0.2 - 1.3 mg/dL 0.4 Alkaline Phosphatase 34 - 123 U/L 75 AST 13 - 35 U/L 31 ALT 7 - 38 U/L 20 Glucose 74 - 99 mg/dL 165 (H) BUN 7 - 21 mg/dL 20 Creatinine 0.58 - 0.96 mg/dL 1.26 (H) Sodium 136 - 144 mmol/L 136 Potassium 3.7 - 5.1 mmol/L 3.9 Chloride 97 - 105 mmol/L 95 (L) CO2 22 - 30 mmol/L 32 (H) Anion Gap 9 - 18 mmol/L 9 eGFR >=60 mL/min/1.73m 44 (L) ASSESSMENT/PLAN: (C50.812, Z17.0) Malignant 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, estrogen receptor positive (HCC) (primary encounter diagnosis) (C79.51) Bone metastases (HCC) Assessment: -cT3 cN0 M0 ER/NE positive, HER2 negative infiltrating lobular carcinoma of the left breast. -pT3 pN3a MX stage IIIC ER/NE positive, HER2 negative infiltrating lobular carcinoma of the left breast. -Was found to have bone metastases on staging work-up post mastectomy. -Tumor markers normal at baseline. -Haven't routinely been getting CT due to CKD. -PET scan at the end of August suggested BLAKE. -Recently prolonged hospitalization for pneumonia with ARDS and pancytopenia. -She is still in the process of recovery. She is improving. She is hopeful to go home in the next week or 2. She lives by herself. She has 2 children 1 of whom lives in the [place] area and 1 in the [place] area. She has friends close by though who can help her. -Discussed plan to obtain repeat bone scan. If evidence of disease then start low-dose Verzenio. -Her son and amefecsm-th-ptc were present with her today. I answered all their questions to their satisfaction. Plan: -Continue anastrozole. -Stop palbociclib. -Resume monthly Xgeva injections once discharged from skilled care. Portions of this documentation were copied and pasted from previous office visit notes in order to provide a cohesive continuity of the history. The note has been reviewed and edited and updated as necessary. During this patient visit I have spent approximately 20 minutes out of 30 in counseling regarding treatment options, medications, answering questions and discussing plan of care. Cheko Stanford DO documented in this encounter [facility] 11-08-2021 Miscellaneous Notes Dora returned call. Pt scheduled. Tried to contact Dora, went to , left a message for her to return our call. Jessica Quach Spoke to patient. Patient would like to utilize the transportation services. Please contact [facility] at [phone] and schedule establish complex about 1 to 2 weeks after discharge. CBC/CMP Thank you. Shankar Alexander RN Received a call back from Juli at [facility] and they are able to provide transportation if needed. To schedule an appointment/facilitate transportation, please contact [facility] at [phone]. This nurse will contact patient for a discharge follow-up call tomorrow and will discuss her next appointment at that time. Shankar Alexander RN Spoke to Sandra and informed her of Dr. Stanford's response. Patient will be transferred to [facility] today. Discussed the need for an OV/labs in 1-2 weeks. Called [place] to see if they offer transportation to appointment, left a message for Juli to call this nurse back. This nurse will follow-up with patient/son tomorrow to discuss follow-up plan. Shankar Alexander RN I recommend she continue anastrozole after discharge. I will need to see her for an office visit, establish complex about 1 to 2 weeks after discharge. CBC/CMP. Can then decide whether or not she will go back on palbociclib. Cheko Stanford DO Sandra, a social service manager with [facility], called as patient is being discharged tentatively to [facility] and they are wanting to know which chemo drugs will be continuing. Please advise. Christy Díaz documented in this encounter [facility] 11-08-2021 Miscellaneous Notes DISCHARGE CALL BACK Today's date: November 08, 2021 Notified of Pt discharge by: [facility] LANDON informed our office yesterday Patient discharged on 11/07/[address] [facility] to [facility] Primary Cancer Diagnosis: IV breast cancer Admitting Diagnosis: Neutropenic Fever Discharge Summary/SBAR reviewed: Yes Handoff Discussed with Transitional Legal Officer: N/A Psychosocial Risk Factors: None If patient discharged to SNF/Rehab Facility, phone call completed to reinforce discharge instructions and follow up: Yes, spoke with Juli yesterday Call Disposition: Spoke to patient. Patient stated she is weak . Patient stated she was discharged to [facility] yesterday and she had a nurse helping her ambulate yesterday. Patient stated she has SOB alleviated with oxygen, 3-4 L. Patient stated she has an occasional productive cough with deep chocolate phlegm. Patient denies fever or chills. Reviewed Dr. Stanford's plan for labs/OV in 1-2 weeks to evaluate patient and also discuss if she will resume ibrance. Patient stated understanding of this and would like to utilize transportation provided by [facility]. A message was sent in a separate phone encounter to schedule appointment. Discharge Orders/Prescriptions Prescriptions: New levofloxacin 750 mg tablet 750 mg PO DAILY Qty: 5 RF: 0 acetaminophen [Tylenol] 325 mg Tablet 650 mg PO Q6H PRN PRN (Reason: Pain Score 1-10/Temp > 100.7 F) Qty: 0 RF: 0 ferrous sulfate [FeroSul] 325 mg (65 mg iron) Tablet 325 mg PO QODAY Qty: 30 RF: 0 furosemide 40 mg Tablet 40 mg PO DAILY Qty: 0 RF: 0 amoxicillin 500 mg capsule 500 mg PO Q8H Qty: 9 RF: 0 potassium chloride 8 mEq capsule, extended release 8 meq PO DAILY Qty: 30 RF: 0 Shankar Alexander RN documented in this encounter [facility] 10-25-2021 Miscellaneous Notes Advise ED evaluation. Cheko Stanford DO Patient stopped in while here for labs. I added a UA C&S. Patient states she did not feel well when she woke up Thursday morning. Patient c/o extreme fatigue, chills, poor appetite, urinary frequency (voiding Q 2 hours) and some urgency, slight nausea last night and fevers Thursday evening 100.0 and evening 102.0. Fever resolved on its own, patient has not taken any OTC medications. Patient denies burning upon urination, bladder pain, abdominal pain or distention, SOB, cough or chest pain. Last BM was Thursday (normal). BP was 89/56 and this morning @ 0830 88/55. Current vitals- BP 118/61, HR 78 and temp 96.0. Dorie Clayton LPN documented in this encounter [facility] 10-25-2021 Miscellaneous Notes Orders filed. Cheko Stanford DO Patient here for labs. Please file order. I included a UA C&S based off of symptoms in MyChart message. Dorie Clayton LPN documented in this encounter [facility] 10-21-2021 Miscellaneous Notes Spoke with Pt. , she called pharmacy and they are shipping her medications. They did not need any new rx sent. Caitlin Holloway LPN documented in this encounter [facility] 10-04-2021 Miscellaneous Notes I spoke with patient. She is planning to go to [place] to visit family for 2-3 weeks. Patient will locate a local lab and MyChart the phone/fax number so that I can fax lab orders there. Dorie Clayton LPN documented in this encounter [facility] 09-19-2021 Nurse Note Patient presents with: Imm/Inj Pt is identified by name and birthdate: Yes. Allergies and medications reviewed. Latex allergy? No. Does this patient have: Unplanned weight loss or gain of greater than 10 pounds, or a change of appetite over the last year? No Does the patient have any concerns about safety in the home/falls? Not at risk for falls Has the patient fallen in the past year? No Does the patient have difficulty performing or completing routine daily living activities? No Does this patient have concerns about personal safety? No Is patient having pain? Pain: No=0 (pain 0 on a scale of 0-10). Health Maintenance: Reviewed and updated. Does patient have MyChart access or Caregiver proxy: yes Pt/Caregiver willingness and readiness to learn assessed: Yes. Barriers: none xgeva injection administered, right arm, (only) tolerated well, no immediate adverse reactions noted. Caitlin Holloway LPN documented in this encounter [facility] 09-16-2021 Miscellaneous Notes SCHEDULED. Angella Gallagher Spoke with pt. Concerning PET results, voiced understanding.F/U with [facility] on 10/17 when here for Xgeva. PSS Please put on schedule, will notify pt. When she is here . Caitlin Holloway LPN Good news! Can let her know the PET scan that was done on 09/11/2021 showed no active areas of cancer currently. This is great but it does not mean that the cancer is cured. It is just showing it is in remission at this time. Please schedule her for an OV with [facility] on 10/17 when she is here for her Xgeva injection. Cheko Stanford DO documented in this encounter [facility] 09-12-2021 Miscellaneous Notes PET scan completed 09/11/2021. Dorie Clayton LPN documented in this encounter [facility] 09-06-2021 Miscellaneous Notes I reached out to [facility] and spoke with Kelsey. She will call patient now to reschedule PET scan. 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, estrogen receptor positive (HCC) Stage 3 chronic kidney disease, unspecified whether stage 3a or 3b CKD (HCC) [facility] Diagnosis Malignant 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, estrogen receptor positive (HCC) Bone metastases (HCC) Secondary malignant neoplasm of bone and bone marrow [facility] Diagnosis Malignant 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, estrogen receptor positive (HCC)- Primary Dysuria [facility] Diagnosis Malignant 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, estrogen receptor positive (HCC)- Primary Bone metastases (HCC) Secondary malignant neoplasm of bone and bone marrow [facility] Diagnosis Malignant 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, estrogen receptor positive (HCC)- Primary Bone metastases (HCC) Secondary malignant neoplasm of bone and bone marrow [facility] Diagnosis Malignant 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, estrogen receptor positive (HCC) Bone metastases (HCC) Secondary malignant neoplasm of bone and bone marrow [facility] Diagnosis Malignant 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, estrogen receptor positive (HCC)- Primary Bone metastases (HCC) Secondary malignant neoplasm of bone and bone marrow [facility] Diagnosis Bone metastases (HCC)- Primary 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, estrogen receptor positive (HCC) Stage 3 chronic kidney disease, unspecified whether stage 3a or 3b CKD (HCC) [facility]* Diagnosis Malignant 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, estrogen receptor positive (HCC)- Primary [facility] Diagnosis Malignant 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, estrogen receptor positive (HCC)- Primary Bone metastases (HCC) Secondary malignant neoplasm of bone and bone marrow [facility] Diagnosis Bone metastases (HCC)- Primary 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, estrogen receptor positive (HCC) Stage 3 chronic kidney disease, unspecified whether stage 3a or 3b CKD (HCC) [facility] Diagnosis Malignant 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, estrogen receptor positive (HCC)- Primary [facility] Diagnosis Malignant 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, estrogen receptor positive (HCC)- Primary Bone metastases (HCC) Secondary malignant neoplasm of bone and bone marrow [facility] Diagnosis Malignant 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, estrogen receptor positive (HCC)- Primary Bone metastases (HCC) Secondary malignant neoplasm of bone and bone marrow [facility] Diagnosis Malignant 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, estrogen receptor positive (HCC)- Primary Bone metastases (HCC) Secondary malignant neoplasm of bone and bone marrow [facility]* Diagnosis Bone metastases (HCC)- Primary 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, estrogen receptor positive (HCC) Stage 3 chronic kidney disease, unspecified whether stage 3a or 3b CKD (HCC) [facility] Diagnosis Malignant 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, estrogen receptor positive (HCC)- Primary Bone metastases (HCC) Secondary malignant neoplasm of bone and bone marrow [facility]* Diagnosis Bone metastases (HCC)- Primary 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, estrogen receptor positive (HCC) [facility] Diagnosis Malignant 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, estrogen receptor positive (HCC)- Primary Bone metastases (HCC) Secondary malignant neoplasm of bone and bone marrow Encounter for screening mammogram for malignant neoplasm of breast Other screening mammogram [facility] Diagnosis Bone metastases (HCC)- Primary 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, estrogen receptor positive (HCC) Stage 3 chronic kidney disease, unspecified whether stage 3a or 3b CKD (HCC) [facility] Diagnosis Abnormal mammogram- Primary Abnormal mammogram, unspecified [facility]* Diagnosis Bone metastases (HCC)- Primary 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, estrogen receptor positive (HCC) Stage 3 chronic kidney disease, unspecified whether stage 3a or 3b CKD (HCC) [facility] Diagnosis 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, estrogen receptor positive (HCC) Stage 3 chronic kidney disease, unspecified whether stage 3a or 3b CKD (HCC) [facility] Diagnosis 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, estrogen receptor positive (HCC) Stage 3 chronic kidney disease, unspecified whether stage 3a or 3b CKD (HCC) [facility] Diagnosis 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, estrogen receptor positive (HCC) Malaise and fatigue Other malaise and fatigue Macrocytosis Other specified diseases of blood and blood-forming organs [facility] Diagnosis Malignant 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, estrogen receptor positive (HCC)- Primary 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 [facility]* Diagnosis Primary hypertension- Primary Unspecified essential hypertension [facility]* Diagnosis 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 Epiretinal membrane (ERM) of right eye Pseudophakia Lens replaced by other means Irregular astigmatism, bilateral Dry eye syndrome of both eyes [facility]* Diagnosis THOMAS (acute kidney injury) (HCC)- Primary Acute kidney failure, unspecified [facility]* Diagnosis Malignant 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, estrogen receptor positive (HCC)- Primary 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 Stage 3 chronic kidney disease, unspecified whether stage 3a or 3b CKD (HCC) Malaise and fatigue Other malaise and fatigue [facility] Diagnosis Malignant 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, estrogen receptor positive (HCC) Bone metastases Secondary malignant neoplasm of bone and bone marrow [facility]* Diagnosis Malignant 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, estrogen receptor positive (HCC) Bone metastases Secondary malignant neoplasm of bone and bone marrow [facility] Diagnosis Malignant 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, 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 documented in this encounter [facility] for referral (narrative)* Diagnostic Procedure Only (Routine) - Authorized Specialty Diagnoses / Procedures Referred By Thu smith Referred To Contact MOLECULAR & FUNCTIONAL IMAGING Diagnoses Malignant 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, estrogen receptor positive (HCC) Bone metastases (HCC) Procedures NM BONE WHOLE BODY BONE &/JOINT IMAGING WHOLE BODY Cheko Stanford DO [address] [place] [address] Molecular & Functional Imaging [address] [place] [address] Referral ID Status Reason Start Date Expiration Date Visits Requested Visits Authorized [id number] Authorized Auto-Generat ed Referral 11/20/2021 12/20/2022 1 1 [facility] for referral (narrative)* Diagnostic Procedure Only (Routine) - Closed Specialty Diagnoses / Procedures Referred By Thu smith Referred To Contact MOLECULAR & FUNCTIONAL IMAGING Diagnoses Malignant 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, estrogen receptor positive (HCC) Bone metastases (HCC) Procedures NM BONE WHOLE BODY BONE &/JOINT IMAGING WHOLE BODY Cheko Stanford DO [address] [place] [address] Molecular & Functional Imaging [address] [place] [address] Referral ID Status Reason Start Date Expiration Date V isits Requested Visits Authorized [id number] Closed Auto-Generate d Referral 11/20/2021 12/20/2022 1 1 [facility] for referral (narrative)* Diagnostic Procedure Only (Routine) - Pending Review Specialty Diagnoses / Procedures Referred By Thu smith Referred To Contact BR IMAGING Diagnoses Encounter for screening mammogram for malignant neoplasm of breast Procedures ANT SCREENING W IVÁN SCREENING DIGITAL BREAST TOMOSYNTHESIS BI SCREENING MAMMOGRAPHY BI 2-VIEW BREAST INC CAD Cheko Stanford, DO [address] [place] [address] [facility] [address] [place] [address] Referral ID Status Reason Start Date Expiration Date Visits Requested Visits Authorized [id number] Pending Review Auto-Generat ed Referral 07/07/2022 08/06/2023 1 1 * Diagnostic Procedure Only (Routine) - Closed Specialty Diagnoses / Procedures [facility] Referred To Contact XR IMAGING Diagnoses Malignant 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, estrogen receptor positive (HCC) Bone metastases (HCC) Procedures XR LUMBAR LIMITED 2V AP/LAT RADEX SPINE LUMBOSACRAL 2/3 VIEWS Cheko Stanford, DO [address] [place] [address] Xr Imaging Referral ID Status Reason Start Date Expiration Date V isits Requested Visits Authorized [id number] Closed Auto-Generate d Referral 07/07/2022 08/06/2023 1 1 * Diagnostic Procedure Only (Routine) - Closed Specialty Diagnoses / Procedures [facility] Referred To Contact XR IMAGING Diagnoses Malignant 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, estrogen receptor positive (HCC) Bone metastases (HCC) Procedures XR THORACIC LIMITED 2V AP/LAT RADEX SPINE THORACIC 2 VIEWS Cheko Stanford, DO [address] [place] [address] Xr Imaging Referral ID Status Reason Start Date Expiration Date V isits Requested Visits Authorized [id number] Closed Auto-Generate d Referral 07/07/2022 08/06/2023 1 1 * Diagnostic Procedure Only (Routine) - Authorized Specialty Diagnoses / Procedures [facility] Referred To Contact MOLECULAR & FUNCTIONAL IMAGING Diagnoses Malignant 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, estrogen receptor positive (HCC) Bone metastases (HCC) Procedures NM BONE WHOLE BODY BONE &/JOINT IMAGING WHOLE BODY Cheko Stanford, DO [address] [place] [address] Molecular & Functional Imaging [address] [place] [id number] Referral ID Status Reason Start Date Expiration Date Visits Requested Visits Authorized [id number] Authorized Auto-Generat ed Referral 07/07/2022 08/06/2023 1 1 [facility] for referral (narrative)* Diagnostic Procedure Only (Routine) - Pending Review Specialty Diagnoses / Procedures Referred By Thu smith Referred To Contact BR IMAGING Diagnoses Abnormal mammogram Procedures US BREAST LTD RT US BREAST UNI REAL TIME WITH IMAGE LIMITED Cheko Stanford DO [address] [place] [address] [facility] [address] [place] [address] Referral ID Status Reason Start Date Expiration Date Visits Requested Visits Authorized [id number] Pending Review Auto-Generat ed Referral 07/16/2022 08/15/2023 1 1 [facility] for referral (narrative)* Diagnostic Procedure Only (Routine) - Authorized Specialty Diagnoses / Procedures Referred By Thu smith Referred To Contact MOLECULAR & FUNCTIONAL IMAGING Diagnoses Malignant 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, 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) Procedures NM BONE WHOLE BODY BONE &/JOINT IMAGING WHOLE BODY Cheko Stanford DO [address] [place] [address] Molecular & Functional Imaging [address] [place] [address] Referral ID Status Reason Start Date Expiration Date Visits Requested Visits Authorized [id number] Authorized Auto-Generat ed Referral 01/21/2023 02/20/2024 1 1 [facility] for referral (narrative)* Diagnostic Procedure Only (Routine) - Closed Specialty Diagnoses / Procedures Referred By Contac t Referred To Contact XR IMAGING Diagnoses Malignant 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, estrogen receptor positive (HCC) Bone metastases Procedures XR LUMBAR LIMITED 2V AP/LAT RADEX SPINE LUMBOSACRAL 2/3 VIEWS Cheko Stanford DO [address] [place] [address] [place] [address] Referral ID Status Reason Start Date Expiration Date V isits Requested Visits Authorized [id number] Closed Auto-Generate d Referral 07/07/2022 08/06/2023 1 1 * Diagnostic Procedure Only (Routine) - Closed Specialty Diagnoses / Procedures Referred By Contac t Referred To Contact XR IMAGING Diagnoses Malignant 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, estrogen receptor positive (HCC) Bone metastases Procedures XR THORACIC LIMITED 2V AP/LAT RADEX SPINE THORACIC 2 VIEWS Cheko Stanford, DO [address] [place] [address] [place] [address] Referral ID Status Reason Start Date Expiration Date V isits Requested Visits Authorized [id number] Closed Auto-Generate d Referral 07/07/2022 08/06/2023 1 1 [facility] for referral (narrative)* Diagnostic Procedure Only (Routine) - Closed Specialty Diagnoses / Procedures [facility] To Contact MOLECULAR & FUNCTIONAL IMAGING Diagnoses Malignant 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, estrogen receptor positive (HCC) Bone metastases Procedures NM BONE WHOLE BODY BONE &/JOINT IMAGING WHOLE BODY Cheko Stanford, DO [address] [place] [address] Molecular & Functional Imaging [address] [place], [place] [id number] Referral ID Status Reason Start Date Expiration Date V isits Requested Visits Authorized [id number] Closed Auto-Generate d Referral 07/07/2022 08/06/2023 1 1 [facility] for referral (narrative)* Diagnostic Procedure Only (Routine) - Closed Specialty Diagnoses / Procedures [facility] To Contact MOLECULAR & FUNCTIONAL IMAGING Diagnoses Malignant 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, 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) Procedures NM BONE WHOLE BODY BONE &/JOINT IMAGING WHOLE BODY Cheko Stanford, DO [address] [address] Molecular & Functional Imaging [address] [place] [address] Referral ID Status Reason Start Date Expiration Date V isits Requested Visits Authorized [id number] Closed Auto-Generate d Referral 01/21/2023 02/20/2024 1 1 [facility] for visit Narrative* Diagnostic Procedure Only (Routine) - Closed Specialty Diagnoses / Procedures [facility] Referred To Contact MOLECULAR & FUNCTIONAL IMAGING Diagnoses Malignant 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, estrogen receptor positive (HCC) Bone metastases (HCC) Procedures NM BONE WHOLE BODY BONE &/JOINT IMAGING WHOLE BODY Cheko Stanford, DO [address] [place] [address] Molecular & Functional Imaging [address] [place] [address] Referral ID Status Reason Start Date Expiration Date V isits Requested Visits Authorized [id number] Closed Auto-Generate d Referral 11/20/2021 12/20/2022 1 1 [facility] for visit Narrative* Diagnostic Procedure Only (Routine) - Closed Specialty Diagnoses / Procedures [facility] Referred To Contact XR IMAGING Diagnoses Malignant 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, estrogen receptor positive (HCC) Bone metastases Procedures XR LUMBAR LIMITED 2V AP/LAT RADEX SPINE LUMBOSACRAL 2/3 VIEWS Cheko Stanford, DO [address] [place] [address] Xr Imaging [id number] Referral ID Status Reason Start Date Expiration Date V isits Requested Visits Authorized [id number] Closed Auto-Generate d Referral 07/07/2022 08/06/2023 1 1 [facility] for visit Narrative* Diagnostic Procedure Only (Routine) - Closed Specialty Diagnoses / Procedures Referred By Thu smith Referred To Contact MOLECULAR & FUNCTIONAL IMAGING Diagnoses Malignant 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, estrogen receptor positive (HCC) Bone metastases Procedures NM BONE WHOLE BODY BONE &/JOINT IMAGING WHOLE BODY Cheko Stanford DO [address] [place] [address] Molecular & Functional Imaging [address] [place] [address] Referral ID Status Reason Start Date Expiration Date V isits Requested Visits Authorized [id number] Closed Auto-Generate d Referral 07/07/2022 08/06/2023 1 1 [facility] Medications Administered Section Inactive Administered Medications - up to 3 most recent administrations Medication Order MAR Action Action Date Dose Rate Site denosumab 120 mg injection (XGEVA) 120 mg, SUBCUTANEOUS, ONCE, 1 dose, On Darlyn 09/19/21 at 0900, REFRIGERATE Given 09/19/2021 8:56 AM EDT 120 mg Arm, Right Inactive Administered Medications - up to 3 most recent administrations Medication Order MAR Action Action Date Dose Rate Site denosumab 120 mg injection (XGEVA) 120 mg, SUBCUTANEOUS, ONCE, 1 dose, On Darlyn 12/19/21 at 0930, REFRIGERATE Given 12/19/2021 9:41 AM EDT 120 mg Arm, Right Inactive Administered Medications - up to 3 most recent administrations Medication Order MAR Action Action Date Dose Rate Site denosumab 120 mg injection (XGEVA) 120 mg, SUBCUTANEOUS, ONCE, 1 dose, On Darlyn 03/13/22 at 1030, REFRIGERATE Given 03/13/2022 10:32 AM EDT 120 mg Arm, Right Inactive Administered Medications - up to 3 most recent administrations Medication Order MAR Action Action Date Dose Rate Site denosumab 120 mg injection (XGEVA) 120 mg, SUBCUTANEOUS, ONCE, 1 dose, On Darlyn 06/05/22 at 1030, REFRIGERATE Given 06/05/2022 10:39 AM EST 120 mg Arm, Left Inactive Administered Medications - up to 3 most recent administrations Medication Order MAR Action Action Date Dose Rate Site denosumab 120 mg injection (XGEVA) 120 mg, SUBCUTANEOUS, ONCE, 1 dose, On Thu07/09/22 at 1430, REFRIGERATE Given 07/09/2022 2:31 PM EST 120 mg Arm, Right Inactive Administered Medications - up to 3 most recent administrations Medication Order MAR Action Action Date Dose Rate Site denosumab 120 mg injection (XGEVA) 120 mg, SUBCUTANEOUS, ONCE, 1 dose, On Thu08/06/22 at 1500, REFRIGERATE Given 08/06/2022 3:00 PM EST 120 mg Arm, Left Inactive Administered Medications - up to 3 most recent administrations Medication Order MAR Action Action Date Dose Rate Site denosumab 120 mg injection (XGEVA) 120 mg, SUBCUTANEOUS, ONCE, 1 dose, On Thu10/29/22 at 1130, REFRIGERATE Given 10/29/2022 11:18 AM EDT 120 mg Arm, Right Inactive Administered Medications - up to 3 most recent administrations Medication Order MAR Action Action Date Dose Rate Site denosumab 120 mg injection (XGEVA) 120 mg, SUBCUTANEOUS, ONCE, 1 dose, On Thu01/21/23 at 1100, REFRIGERATE Given 01/21/2023 11:10 AM EDT 120 mg Arm, Right Reason for Referral Specialty Diagnoses / Procedures Referred By Thu smith Referred To Contact CT IMAGING Diagnoses Malignant 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, estrogen receptor positive (HCC) Bone metastases (HCC) Procedures CT ABD/PEL WO IVCON CT ABD & PELVIS W/O CONTRAST Cheko Stanford, DO [address] [place] [address] Ct Imaging Referral ID Status Reason Start Date Expiration Date Visits Requested Visits Authorized [id number] Authorized Auto-Generat ed Referral 12/03/2021 01/02/2023 1 1 Specialty Diagnoses / Procedures Referred By Thu smith Referred To Contact CT IMAGING Diagnoses Malignant 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, estrogen receptor positive (HCC) Bone metastases (HCC) Procedures CT CHEST WO IVCON DIAGNOSTIC COMPUTED TOMOGRAPHY THORAX W/O CNTRST Cheko Stanford, DO [address] [place] [address] Ct Imaging Referral ID Status Reason Start Date Expiration Date Visits Requested Visits Authorized [id number] Authorized Auto-Generat ed Referral 12/03/2021 01/02/2023 1 1 Specialty Diagnoses / Procedures Referred By Thu smith Referred To Contact MOLECULAR & FUNCTIONAL IMAGING Diagnoses Malignant 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, estrogen receptor positive (HCC) Bone metastases (HCC) Procedures NM BONE WHOLE BODY BONE &/JOINT IMAGING WHOLE BODY Cheko Stanford DO [address] [place] [address] Molecular & Functional Imaging [address] [place] [address] Referral ID Status Reason Start Date Expiration Date Visits Requested Visits Authorized [id number] Authorized Auto-Generat ed Referral 12/03/2021 01/02/2023 1 1 Summary Purpose Family History No Family History Records Found Advance Directives No Advanced Directives Records Found Additional Source Comments Source Comments (unrecognize d section and content) In the event this informatio n is protected by the Federal Confidentiality of Alcohol and Drug Abuse Patient Records regulations: The Federal rules restrict any use of the information to criminally investigate or prosecute any alcohol or drug abuse patient.[facility] the event this information is protected by the Federal Confidentiality of Alcohol and Drug Abuse Patient Records regulations: The Federal rules restrict any use of the information to criminally investigate or prosecute any alcohol or drug abuse patient.[facility] HospitalIn the event this information is protected by the Federal Confidentiality of Alcohol and Drug Abuse Patient Records regulations: The Federal rules restrict any use of the information to criminally investigate or prosecute any alcohol or drug abuse patient.[facility] HospitalIn the event this information is protected by the Federal Confidentiality of Alcohol and Drug Abuse Patient Records regulations: The Federal rules restrict any use of the information to criminally investigate or prosecute any alcohol or drug abuse patient.[facility] HospitalIn the event this information is protected by the Federal Confidentiality of Alcohol and Drug Abuse Patient Records regulations: The Federal rules restrict any use of the information to criminally investigate or prosecute any alcohol or drug abuse patient.[facility] HospitalIn the event this information is protected by the Federal Confidentiality of Alcohol and Drug Abuse Patient Records regulations: The Federal rules restrict any use of the information to criminally investigate or prosecute any alcohol or drug abuse patient.[facility] HospitalIn the event this information is protected by the Federal Confidentiality of Alcohol and Drug Abuse Patient Records regulations: The Federal rules restrict any use of the information to criminally investigate or prosecute any alcohol or drug abuse patient.[facility] HospitalIn the event this information is protected by the Federal Confidentiality of Alcohol and Drug Abuse Patient Records regulations: The Federal rules restrict any use of the information to criminally investigate or prosecute any alcohol or drug abuse patient.[facility] HospitalIn the event this information is protected by the Federal Confidentiality of Alcohol and Drug Abuse Patient Records regulations: The Federal rules restrict any use of the information to criminally investigate or prosecute any alcohol or drug abuse patient.[facility] HospitalIn the event this information is protected by the Federal Confidentiality of Alcohol and Drug Abuse Patient Records regulations: The Federal rules restrict any use of the information to criminally investigate or prosecute any alcohol or drug abuse patient.[facility] HospitalIn the event this information is protected by the Federal Confidentiality of Alcohol and Drug Abuse Patient Records regulations: The Federal rules restrict any use of the information to criminally investigate or prosecute any alcohol or drug abuse patient.[facility] HospitalIn the event this information is protected by the Federal Confidentiality of Alcohol and Drug Abuse Patient Records regulations: The Federal rules restrict any use of the information to criminally investigate or prosecute any alcohol or drug abuse patient.[facility] HospitalIn the event this information is protected by the Federal Confidentiality of Alcohol and Drug Abuse Patient Records regulations: The Federal rules restrict any use of the information to criminally investigate or prosecute any alcohol or drug abuse patient.[facility] HospitalIn the event this information is protected by the Federal Confidentiality of Alcohol and Drug Abuse Patient Records regulations: The Federal rules restrict any use of the information to criminally investigate or prosecute any alcohol or drug abuse patient.[facility] HospitalIn the event this information is protected by the Federal Confidentiality of Alcohol and Drug Abuse Patient Records regulations: The Federal rules restrict any use of the information to criminally investigate or prosecute any alcohol or drug abuse patient.[facility] HospitalIn the event this information is protected by the Federal Confidentiality of Alcohol and Drug Abuse Patient Records regulations: The Federal rules restrict any use of the information to criminally investigate or prosecute any alcohol or drug abuse patient.[facility] HospitalIn the event this information is protected by the Federal Confidentiality of Alcohol and Drug Abuse Patient Records regulations: The Federal rules restrict any use of the information to criminally investigate or prosecute any alcohol or drug abuse patient.[facility] HospitalIn the event this information is protected by the Federal Confidentiality of Alcohol and Drug Abuse Patient Records regulations: The Federal rules restrict any use of the information to criminally investigate or prosecute any alcohol or drug abuse patient.[facility] HospitalIn the event this information is protected by the Federal Confidentiality of Alcohol and Drug Abuse Patient Records regulations: The Federal rules restrict any use of the information to criminally investigate or prosecute any alcohol or drug abuse patient.[facility] HospitalIn the event this information is protected by the Federal Confidentiality of Alcohol and Drug Abuse Patient Records regulations: The Federal rules restrict any use of the information to criminally investigate or prosecute any alcohol or drug abuse patient.[facility] HospitalIn the event this information is protected by the Federal Confidentiality of Alcohol and Drug Abuse Patient Records regulations: The Federal rules restrict any use of the information to criminally investigate or prosecute any alcohol or drug abuse patient.[facility] HospitalIn the event this information is protected by the Federal Confidentiality of Alcohol and Drug Abuse Patient Records regulations: The Federal rules restrict any use of the information to criminally investigate or prosecute any alcohol or drug abuse patient.[facility] HospitalIn the event this information is protected by the Federal Confidentiality of Alcohol and Drug Abuse Patient Records regulations: The Federal rules restrict any use of the information to criminally investigate or prosecute any alcohol or drug abuse patient.[facility] HospitalIn the event this information is protected by the Federal Confidentiality of Alcohol and Drug Abuse Patient Records regulations: The Federal rules restrict any use of the information to criminally investigate or prosecute any alcohol or drug abuse patient.[facility] HospitalIn the event this information is protected by the Federal Confidentiality of Alcohol and Drug Abuse Patient Records regulations: The Federal rules restrict any use of the information to criminally investigate or prosecute any alcohol or drug abuse patient.[facility] HospitalIn the event this information is protected by the Federal Confidentiality of Alcohol and Drug Abuse Patient Records regulations: The Federal rules restrict any use of the information to criminally investigate or prosecute any alcohol or drug abuse patient.[facility] HospitalIn the event this information is protected by the Federal Confidentiality of Alcohol and Drug Abuse Patient Records regulations: The Federal rules restrict any use of the information to criminally investigate or prosecute any alcohol or drug abuse patient.[facility] HospitalIn the event this information is protected by the Federal Confidentiality of Alcohol and Drug Abuse Patient Records regulations: The Federal rules restrict any use of the information to criminally investigate or prosecute any alcohol or drug abuse patient.[facility] HospitalIn the event this information is protected by the Federal Confidentiality of Alcohol and Drug Abuse Patient Records regulations: The Federal rules restrict any use of the information to criminally investigate or prosecute any alcohol or drug abuse patient.[facility] HospitalIn the event this information is protected by the Federal Confidentiality of Alcohol and Drug Abuse Patient Records regulations: The Federal rules restrict any use of the information to criminally investigate or prosecute any alcohol or drug abuse patient.[facility] HospitalIn the event this information is protected by the Federal Confidentiality of Alcohol and Drug Abuse Patient Records regulations: The Federal rules restrict any use of the information to criminally investigate or prosecute any alcohol or drug abuse patient.[facility] HospitalIn the event this information is protected by the Federal Confidentiality of Alcohol and Drug Abuse Patient Records regulations: The Federal rules restrict any use of the information to criminally investigate or prosecute any alcohol or drug abuse patient.[facility] HospitalIn the event this information is protected by the Federal Confidentiality of Alcohol and Drug Abuse Patient Records regulations: The Federal rules restrict any use of the information to criminally investigate or prosecute any alcohol or drug abuse patient.[facility] HospitalIn the event this information is protected by the Federal Confidentiality of Alcohol and Drug Abuse Patient Records regulations: The Federal rules restrict any use of the information to criminally investigate or prosecute any alcohol or drug abuse patient.[facility] HospitalIn the event this information is protected by the Federal Confidentiality of Alcohol and Drug Abuse Patient Records regulations: The Federal rules restrict any use of the information to criminally investigate or prosecute any alcohol or drug abuse patient.[facility] HospitalIn the event this information is protected by the Federal Confidentiality of Alcohol and Drug Abuse Patient Records regulations: The Federal rules restrict any use of the information to criminally investigate or prosecute any alcohol or drug abuse patient.[facility] HospitalIn the event this information is protected by the Federal Confidentiality of Alcohol and Drug Abuse Patient Records regulations: The Federal rules restrict any use of the information to criminally investigate or prosecute any alcohol or drug abuse patient.[facility] HospitalIn the event this information is protected by the Federal Confidentiality of Alcohol and Drug Abuse Patient Records regulations: The Federal rules restrict any use of the information to criminally investigate or prosecute any alcohol or drug abuse patient.[facility] HospitalIn the event this information is protected by the Federal Confidentiality of Alcohol and Drug Abuse Patient Records regulations: The Federal rules restrict any use of the information to criminally investigate or prosecute any alcohol or drug abuse patient.[facility] HospitalIn the event this information is protected by the Federal Confidentiality of Alcohol and Drug Abuse Patient Records regulations: The Federal rules restrict any use of the information to criminally investigate or prosecute any alcohol or drug abuse patient.[facility] HospitalIn the event this information is protected by the Federal Confidentiality of Alcohol and Drug Abuse Patient Records regulations: The Federal rules restrict any use of the information to criminally investigate or prosecute any alcohol or drug abuse patient.[facility] HospitalIn the event this information is protected by the Federal Confidentiality of Alcohol and Drug Abuse Patient Records regulations: The Federal rules restrict any use of the information to criminally investigate or prosecute any alcohol or drug abuse patient.[facility] HospitalIn the event this information is protected by the Federal Confidentiality of Alcohol and Drug Abuse Patient Records regulations: The Federal rules restrict any use of the information to criminally investigate or prosecute any alcohol or drug abuse patient.[facility] HospitalIn the event this information is protected by the Federal Confidentiality of Alcohol and Drug Abuse Patient Records regulations: The Federal rules restrict any use of the information to criminally investigate or prosecute any alcohol or drug abuse patient.[facility] HospitalIn the event this information is protected by the Federal Confidentiality of Alcohol and Drug Abuse Patient Records regulations: The Federal rules restrict any use of the information to criminally investigate or prosecute any alcohol or drug abuse patient.[facility] HospitalIn the event this information is protected by the Federal Confidentiality of Alcohol and Drug Abuse Patient Records regulations: The Federal rules restrict any use of the information to criminally investigate or prosecute any alcohol or drug abuse patient.[facility] HospitalIn the event this information is protected by the Federal Confidentiality of Alcohol and Drug Abuse Patient Records regulations: The Federal rules restrict any use of the information to criminally investigate or prosecute any alcohol or drug abuse patient.[facility] HospitalIn the event this information is protected by the Federal Confidentiality of Alcohol and Drug Abuse Patient Records regulations: The Federal rules restrict any use of the information to criminally investigate or prosecute any alcohol or drug abuse patient.[facility] HospitalIn the event this information is protected by the Federal Confidentiality of Alcohol and Drug Abuse Patient Records regulations: The Federal rules restrict any use of the information to criminally investigate or prosecute any alcohol or drug abuse patient.[facility] HospitalIn the event this information is protected by the Federal Confidentiality of Alcohol and Drug Abuse Patient Records regulations: The Federal rules restrict any use of the information to criminally investigate or prosecute any alcohol or drug abuse patient.[facility] HospitalIn the event this information is protected by the Federal Confidentiality of Alcohol and Drug Abuse Patient Records regulations: The Federal rules restrict any use of the information to criminally investigate or prosecute any alcohol or drug abuse patient.[facility] HospitalIn the event this information is protected by the Federal Confidentiality of Alcohol and Drug Abuse Patient Records regulations: The Federal rules restrict any use of the information to criminally investigate or prosecute any alcohol or drug abuse patient.[facility] HospitalIn the event this information is protected by the Federal Confidentiality of Alcohol and Drug Abuse Patient Records regulations: The Federal rules restrict any use of the information to criminally investigate or prosecute any alcohol or drug abuse patient.[facility] HospitalIn the event this information is protected by the Federal Confidentiality of Alcohol and Drug Abuse Patient Records regulations: The Federal rules restrict any use of the information to criminally investigate or prosecute any alcohol or drug abuse patient.[facility] HospitalIn the event this information is protected by the Federal Confidentiality of Alcohol and Drug Abuse Patient Records regulations: The Federal rules restrict any use of the information to criminally investigate or prosecute any alcohol or drug abuse patient.[facility] HospitalIn the event this information is protected by the Federal Confidentiality of Alcohol and Drug Abuse Patient Records regulations: The Federal rules restrict any use of the information to criminally investigate or prosecute any alcohol or drug abuse patient.[facility] HospitalIn the event this information is protected by the Federal Confidentiality of Alcohol and Drug Abuse Patient Records regulations: The Federal rules restrict any use of the information to criminally investigate or prosecute any alcohol or drug abuse patient.[facility] HospitalIn the event this information is protected by the Federal Confidentiality of Alcohol and Drug Abuse Patient Records regulations: The Federal rules restrict any use of the information to criminally investigate or prosecute any alcohol or drug abuse patient.[facility] HospitalIn the event this information is protected by the Federal Confidentiality of Alcohol and Drug Abuse Patient Records regulations: The Federal rules restrict any use of the information to criminally investigate or prosecute any alcohol or drug abuse patient.[facility] HospitalIn the event this information is protected by the Federal Confidentiality of Alcohol and Drug Abuse Patient Records regulations: The Federal rules restrict any use of the information to criminally investigate or prosecute any alcohol or drug abuse patient.[facility] HospitalIn the event this information is protected by the Federal Confidentiality of Alcohol and Drug Abuse Patient Records regulations: The Federal rules restrict any use of the information to criminally investigate or prosecute any alcohol or drug abuse patient.[facility] HospitalIn the event this information is protected by the Federal Confidentiality of Alcohol and Drug Abuse Patient Records regulations: The Federal rules restrict any use of the information to criminally investigate or prosecute any alcohol or drug abuse patient.[facility] HospitalIn the event this information is protected by the Federal Confidentiality of Alcohol and Drug Abuse Patient Records regulations: The Federal rules restrict any use of the information to criminally investigate or prosecute any alcohol or drug abuse patient.[facility] HospitalIn the event this information is protected by the Federal Confidentiality of Alcohol and Drug Abuse Patient Records regulations: The Federal rules restrict any use of the information to criminally investigate or prosecute any alcohol or drug abuse patient.[facility] HospitalIn the event this information is protected by the Federal Confidentiality of Alcohol and Drug Abuse Patient Records regulations: The Federal rules restrict any use of the information to criminally investigate or prosecute any alcohol or drug abuse patient.[facility] HospitalIn the event this information is protected by the Federal Confidentiality of Alcohol and Drug Abuse Patient Records regulations: The Federal rules restrict any use of the information to criminally investigate or prosecute any alcohol or drug abuse patient.[facility] Care Teams (unrecognized sec tion and content) Director Asset Relationship Specialty Start Date End Date Celina Dangelo DO PCP - General Family Practice 10/18/14 Uyen Lyosn MD, [address], [place] [id number] Physician Radiation Oncology 07/08/19 Shankar Alexander RN Specialty Legal Officer Oncology 03/21/20 Director Asset Relationship Specialty Start Date End Date Celina Dangelo DO PCP - General Family Practice 10/18/14 Uyen Lyons MD, [address] [place] [address] Physician Radiation Oncology 07/08/19 Shankar Alexander RN Specialty Legal Officer Oncology 03/21/20 Director Asset Relationship Specialty Start Date End Date Celina Dangelo DO PCP - General Family Practice 10/18/14 Uyen Lyons MD, [address] [facility] [address] Physician Radiation Oncology 07/08/19 Shankar Alexander RN Specialty Legal Officer Oncology 03/21/20 Director Asset Relationship Specialty Start Date End Date Celina Dangelo DO PCP - General Family Practice 10/18/14 Uyen Lyons MD, [address] [facility] [address] Physician Radiation Oncology 07/08/19 Shankar Alexander RN Specialty Legal Officer Oncology 03/21/20 Director Asset Relationship Specialty Start Date End Date Celina Dangelo DO PCP - General Family Practice 10/18/14 Uyen Lyons MD, [address] [place] [address] Physician Radiation Oncology 07/08/19 Shankar Alexander RN Specialty Legal Officer Oncology 03/21/20 Director Asset Relationship Specialty Start Date End Date Celina Dangelo PCP - General Family Practice 10/18/14 Uyen Lyons MD, [address] [facility] [address] Physician Radiation Oncology 07/08/19 Shankar Alexander RN Specialty Legal Officer Oncology 03/21/20 Director Asset Relationship Specialty Start Date End Date Celina Dangelo DO PCP - General Family Practice 10/18/14 Uyen Lyons MD, [address] [facility] [place] [address] Physician Radiation Oncology 07/08/19 Shankar Alexander RN Specialty Legal Officer Oncology 03/21/20 Director Asset Relationship Specialty Start Date End Date Celina Dangelo DO PCP - General Family Practice 10/18/14 Uyen Lyons MD, [address] [facility] [place] [address] Physician Radiation Oncology 07/08/19 Shankar Alexander RN Specialty Legal Officer Oncology 03/21/20 Director Asset Relationship Specialty Start Date End Date Celina Dangelo DO PCP - General Family Practice 10/18/14 Uyen Lyons MD, [address] [place] [address] Physician Radiation Oncology 07/08/19 Shankar Alexander RN Specialty Legal Officer Oncology 03/21/20 Director Asset Relationship Specialty Start Date End Date Celina Dangelo DO PCP - General Family Practice 10/18/14 Uyen Lyons MD, [address] [facility] [address] Physician Radiation Oncology 07/08/19 Shankar Alexander RN Specialty Legal Officer Oncology 03/21/20 Director Asset Relationship Specialty Start Date End Date JohnieradhaNicolasacalvin Simpson PCP - General Family Practice 10/18/14 Uyen Lyons MD, [address] [facility] [place] [address] Physician Radiation Oncology 07/08/19 Shankar Alexander RN Specialty Legal Officer Oncology 03/21/20 Director Asset Relationship Specialty Start Date End Date Celina Dangelo DO PCP - General Family Practice 10/18/14 Uyen Lyons MD, [address] [facility] [place] [address] Physician Radiation Oncology 07/08/19 Shankar Alexander RN Specialty Legal Officer Oncology 03/21/20 Director Asset Relationship Specialty Start Date End Date Celina Dangelo DO PCP - General Family Practice 10/18/14 Uyen Lyons MD, [address] [place] [address] Physician Radiation Oncology 07/08/19 Shankar Alexander RN Specialty Legal Officer Oncology 03/21/20 Director Asset Relationship Specialty Start Date End Date Celina Dangelo DO PCP - General Family Medicine 10/18/14 Uyen Lyons MD, [address] [facility] [place] [address] Physician Radiation Oncology 07/08/19 Shankar Alexander RN Specialty Legal Officer Oncology 03/21/20 Director Asset Relationship Specialty Start Date End Date Celina Dangelo DO PCP - General Family Medicine 10/18/14 Uyen Lyons MD, [address] [facility] [place] [address] Physician Radiation Oncology 07/08/19 Shankar Alexander RN Specialty Legal Officer Oncology 03/21/20 Director Asset Relationship Specialty Start Date End Date Celina Dangelo PCP - General Family Medicine 10/18/14 Uyen Lyons MD, [address] [facility] [place] [address] Physician Radiation Oncology 07/08/19 Shankar Alexander RN Specialty Legal Officer Oncology 03/21/20 Director Asset Relationship Specialty Start Date End Date Celina Dangelo PCP - General Family Medicine 10/18/14 Uyen Lyons MD, [address] [place] [facility] [address] Physician Radiation Oncology 07/08/19 Shankar Alexander RN Specialty Legal Officer Oncology 03/21/20 Director Asset Relationship Specialty Start Date End Date Antolin Celina CalvinDO PCP - General Family Medicine 10/18/14 Uyen Lyons MD, [address] [place] [address] Physician Radiation Oncology 07/08/19 Shankar Alexander RN Specialty Legal Officer Oncology 03/21/20 Cheko Stanford DO [address] [facility] [place] [address] Hematology/Oncology 04/08/22 Director Asset Relationship Specialty Start Date End Date AntolinCelina DO PCP - General Family Medicine 10/18/14 Uyen Lyons MD, [address] [facility] [place] [address] Physician Radiation Oncology 07/08/19 Shankar Alexander RN Specialty Legal Officer Oncology 03/21/20 Cheko Stanford, DO [address] [place] [address] Hematology/Oncology 04/08/22 Director Asset Relationship Specialty Start Date End Date Celina DangeloDO PCP - General Family Medicine 10/18/14 Uyen Lyons MD, [address] [place] [address] Physician Radiation Oncology 07/08/19 Shankar Alexander RN Specialty Legal Officer Oncology 03/21/20 hCeko Stanford, DO [address] [place] [address] Hematology/Oncology 04/08/22 July Estrella LISW [address] [place] [address] Restaurant Managing Partner Hematology/Oncology 04/25/22 Director Asset Relationship Specialty Start Date End Date Celina Dangelo DO PCP - General Family Medicine 10/18/14 Uyen Lyons MD, [address] [place] [address] Physician Radiation Oncology 07/08/19 Shankar Alexander RN Specialty Legal Officer Oncology 03/21/20 Cheko Stanford, DO [address] [place] [address] Hematology/Oncology 04/08/22 July Estrella LISW [address] [place] [address] Restaurant Managing Partner Hematology/Oncology 04/25/22 Director Asset Relationship Specialty Start Date End Date Celina Dangelo DO PCP - General Family Medicine 10/18/14 Uyen Lyons MD, [address] [place] [address] Physician Radiation Oncology 07/08/19 Shankar Alexander, RN Specialty Legal Officer Oncology 03/21/20 Cheko Stanford, DO [address] [place] [address] Hematology/Oncology 04/08/22 July Estrella LISW [address] [place] [address] Restaurant Managing Partner Hematology/Oncology 04/25/22 Director Asset Relationship Specialty Start Date End Date Celina Dangelo DO PCP - General Family Medicine 10/18/14 Uyen Lyons MD, [address] [place] [address] Physician Radiation Oncology 07/08/19 Shankar Alexander RN Specialty Legal Officer Oncology 03/21/20 Cheko Stanford, DO [address] [place] [address] Hematology/Oncology 04/08/22 July Estrella LISW [address] [place] [address] Restaurant Managing Partner Hematology/Oncology 04/25/22 Director Asset Relationship Specialty Start Date End Date Celina Dangelo DO PCP - General Family Medicine 10/18/14 Uyen Lyons MD, [address] [place] [address] Physician Radiation Oncology 07/08/19 Shankar Alexander RN Specialty Legal Officer Oncology 03/21/20 Cheko Stanford, DO [address] [place] [address] Hematology/Oncology 04/08/22 July Estrella LISW [address] [place] [address] Restaurant Managing Partner Hematology/Oncology 04/25/22 Director Asset Relationship Specialty Start Date End Date Celina Dangelo DO PCP - General Family Medicine 10/18/14 Uyen Lyons MD, [address] [place] [address] Physician Radiation Oncology 07/08/19 Shankar Alexander RN Specialty Legal Officer Oncology 03/21/20 Cheko Stanford, [address] [place] [address] Hematology/Oncology 04/08/22 July Estrella LISW [address] [place] [address] Restaurant Managing Partner Hematology/Oncology 04/25/22 Director Asset Relationship Specialty Start Date End Date Celina Dangelo DO PCP - General Family Medicine 10/18/14 Uyen Lyons MD, [address] [place] [address] Physician Radiation Oncology 07/08/19 Shankar Alexander, RN Specialty Legal Officer Oncology 03/21/20 Cheko Stanford, DO [address] [place] [address] Hematology/Oncology 04/08/22 July Estrella LISW [address] [place] [address] Restaurant Managing Partner Hematology/Oncology 04/25/22 Director Asset Relationship Specialty Start Date End Date Celina Dangelo DO PCP - General Family Medicine 10/18/14 Uyen Lyosn MD, [address] [place] [address] Physician Radiation Oncology 07/08/19 Shankar Alexander, RN Specialty Legal Officer Oncology 03/21/20 Cheko Stanford DO [address] [place] [address] Hematology/Oncology 04/08/22 July Estrella LISW [address] [place] [address] Restaurant Managing Partner Hematology/Oncology 04/25/22 Director Asset Relationship Specialty Start Date End Date Celina DangeloDO PCP - General Family Medicine 10/18/14 Uyen Lyons MD, [address] [place] [address] Physician Radiation Oncology 07/08/19 Shankar Alexander RN Specialty Legal Officer Oncology 03/21/20 Cheko Stanford DO [address] [place] [address] Hematology/Oncology 04/08/22 Jluy Estrella LISW [address] [place] [address] Restaurant Managing Partner Hematology/Oncology 04/25/22 Director Asset Relationship Specialty Start Date End Date Antolin Celina CalvinDO PCP - General Family Medicine 10/18/14 Uyen Lyons MD, [address] [place] [address] Physician Radiation Oncology 07/08/19 Shankar Alexander RN Specialty Legal Officer Oncology 03/21/20 Cheko Stanford DO [address] [place] [address] Hematology/Oncology 04/08/22 July Estrella LISW [address] [place] [address] Restaurant Managing Partner Hematology/Oncology 04/25/22 Director Asset Relationship Specialty Start Date End Date Celina Dangelo PCP - General Family Medicine 10/18/14 Uyen Lyons MD, [address] [place] [address] Physician Radiation Oncology 07/08/19 Shankar Alexander RN Specialty Legal Officer Oncology 03/21/20 Cheko Stanford, DO [address] [place] [address] Hematology/Oncology 04/08/22 July Estrella LISW [address] [place] [address] Restaurant Managing Partner Hematology/Oncology 04/25/22 Director Asset Relationship Specialty Start Date End Date JohnieradhaNicolasacalvin SimpsonDO PCP - General Family Medicine 10/18/14 Uyen Lyons MD, [address] [place] [address] Physician Radiation Oncology 07/08/19 Shankar Alexander RN Specialty Legal Officer Oncology 03/21/20 Cheko Stanford, DO [address] [place] [address] Hematology/Oncology 04/08/22 July Estrella LISW [address] [place] [address] Restaurant Managing Partner Hematology/Oncology 04/25/22 Director Asset Relationship Specialty Start Date End Date JohnieradhaNicolasacalvin SimpsonDO PCP - General Family Medicine 10/18/14 Uyen Lyons MD, [address] [place] [address] Physician Radiation Oncology 07/08/19 Doup, Shankar, RN Specialty Legal Officer Oncology 03/21/20 Cheko Stanford DO [address] [place] [address] Hematology/Oncology 04/08/22 July Estrella LISW [address] [place] [address] Restaurant Managing Partner Hematology/Oncology 04/25/22 Director Asset Relationship Specialty Start Date End Date JohnieradhaCelina DO PCP - General Family Medicine 10/18/14 Uyen Lyons MD, [address] [place] [address] Physician Radiation Oncology 07/08/19 Shankar Alexander RN Specialty Legal Officer Oncology 03/21/20 Cheko Stanford DO [address] [place] [address] Hematology/Oncology 04/08/22 July Estrella LISW [address] [place] [address] Restaurant Managing Partner Hematology/Oncology 04/25/22 Director Asset Relationship Specialty Start Date End Date AntolinCelina DO PCP - General Family Medicine 10/18/14 Uyen Lyons MD, [address] [place] [address] Physician Radiation Oncology 07/08/19 Shankar Alexander RN Specialty Legal Officer Oncology 03/21/20 Cheko Stanford DO [address] [place] [address] Hematology/Oncology 04/08/22 July Estrella LISW [address] [place] [address] Restaurant Managing Partner Hematology/Oncology 04/25/22 Director Asset Relationship Specialty Start Date End Date JohnieradhaNicolasacalvin SimpsonDO PCP - General Family Medicine 10/18/14 Uyen Lyons MD, [address] [place] [address] Physician Radiation Oncology 07/08/19 Shankar Alexander RN Specialty Legal Officer Oncology 03/21/20 Cheko Stanford DO [address] [place] [address] Hematology/Oncology 04/08/22 July Estrella LISW [address] [place] [address] Restaurant Managing Partner Hematology/Oncology 04/25/22 Director Asset Relationship Specialty Start Date End Date Celina Dangelo DO PCP - General Family Medicine 10/18/14 Uyen Lyons MD, [address] [place] [address] Physician Radiation Oncology 07/08/19 Shankar Alexander RN Specialty Legal Officer Oncology 03/21/20 Cheko Stanford DO [address] [place] [address] Hematology/Oncology 04/08/22 July Estrella LISW [address] [place] [address] Restaurant Managing Partner Hematology/Oncology 04/25/22 Director Asset Relationship Specialty Start Date End Date Celina Dangelo DO PCP - General Family Medicine 10/18/14 Uyen Lyons MD, [address] [place] [address] Physician Radiation Oncology 07/08/19 Shankar Alexander RN Specialty Legal Officer Oncology 03/21/20 Cheko Stanford DO [address] [place] [address] Hematology/Oncology 04/08/22 July Estrella LISW [address] [place] [address] Restaurant Managing Partner Hematology/Oncology 04/25/22 Bam Hammond [address] [place] [address] Referring Ophthalmology 02/20/23 Director Asset Relationship Specialty Start Date End Date Celina Dangelo DO PCP - General Family Medicine 10/18/14 Uyen Lyons MD, [address] [place] [address] Physician Radiation Oncology 07/08/19 Shankar Alexander RN Specialty Legal Officer Oncology 03/21/20 Cheko Stanford DO [address] [place] [address] Hematology/Oncology 04/08/22 July Estrella LISW [address] [place] [address] Restaurant Managing Partner Hematology/Oncology 04/25/22 Bam Hammond [address] [place] [address] Referring Ophthalmology 02/20/23 Director Asset Relationship Specialty Start Date End Date Celina Dangelo DO PCP - General Family Medicine 10/18/14 Uyen Lyons MD, [address] [place] [address] Physician Radiation Oncology 07/08/19 Shankar Alexander RN Specialty Legal Officer Oncology 03/21/20 Cheko Stanford DO [address] [place] [address] Hematology/Oncology 04/08/22 July Estrella LISW [address] [place] [address] Restaurant Managing Partner Hematology/Oncology 04/25/22 Bam Hammond [address] [place] [address] Referring Ophthalmology 02/20/23 Director Asset Relationship Specialty Start Date End Date Celina Dangelo DO PCP - General Family Medicine 10/18/14 Uyen Lyons MD, [address] [place] [address] Physician Radiation Oncology 07/08/19 Shankar Alexander RN Specialty Legal Officer Oncology 03/21/20 Cheko Stanford DO [address] [place] [address] Hematology/Oncology 04/08/22 July Estrella LISW [address] [place] [address] Restaurant Managing Partner Hematology/Oncology 04/25/22 Bam Hammond MD [address] [place] [address] Referring Ophthalmology 02/20/23 Director Asset Relationship Specialty Start Date End Date Celina Dangelo DO PCP - General Family Medicine 10/18/14 Uyen Lyons MD, [address] [place] [address] Physician Radiation Oncology 07/08/19 Shankar Alexander, RN Specialty Legal Officer Oncology 03/21/20 Cheko Stanford DO [address] [place] [address] Hematology/Oncology 04/08/22 July Estrella LISW [address] [place] [address] Restaurant Managing Partner Hematology/Oncology 04/25/22 Bam Hammond MD [address] [place] [address] Referring Ophthalmology 02/20/23 Director Asset Relationship Specialty Start Date End Date Celina Dangelo DO PCP - General Family Medicine 10/18/14 Uyen Lyons MD, [address] [place] [address] Physician Radiation Oncology 07/08/19 Shankar Alexander RN Specialty Legal Officer Oncology 03/21/20 Cheko Stanford DO [address] [place] [address] Hematology/Oncology 04/08/22 Heller, July, DOG HANDLER OR TRAINER [address] [place] [address] Restaurant Managing Partner Hematology/Oncology 04/25/22 Director Asset Relationship Specialty Start Date End Date Celina Dangelo DO PCP - General Family Medicine 10/18/14 Uyen Lyons MD, [address] [place] [address] Physician Radiation Oncology 07/08/19 Shankar Alexander RN Specialty Legal Officer Oncology 03/21/20 Cheko Stnaford DO [address] [place] [address] Hematology/Oncology 04/08/22 July Estrella LISW [address] [place] [address] Restaurant Managing Partner Hematology/Oncology 04/25/22 Director Asset Relationship Specialty Start Date End Date Celina Dangelo DO PCP - General Family Medicine 10/18/14 Uyen Lyons MD, [address] [place] [address] Physician Radiation Oncology 07/08/19 Shankar Alexander RN Specialty Legal Officer Oncology 03/21/20 Cheko Stanford DO [address] [place] [address] Hematology/Oncology 04/08/22 July Estrella LISW [address] [place] [address] Restaurant Managing Partner Hematology/Oncology 04/25/22 [place] [address] [place] [address] [place] [address] Referring Ophthalmology 02/20/23 Director Asset Relationship Specialty Start Date End Date Celina Dangelo DO PCP - General Family Medicine 10/18/14 Uyen Lyons MD, MD [address], [place] [address] Physician Radiation Oncology 07/08/19 Shankar Alexander RN Specialty Legal Officer Oncology 03/21/20 Cheko Stanford DO [address], [place] [address] Hematology/Oncology 04/08/22 July Estrella LISW [address] [place] [address] Restaurant Managing Partner Hematology/Oncology 04/25/22 Bam Hammond MD [address] [facility], [place] [address] Referring Ophthalmology 02/20/23 Reason for Visit (unrecogniz ed section and content) Reason Comments Imm/Inj Specialty Diagnoses / Procedures Referred By Contnichole t Referred To Contact Diagnoses Stage 3 chronic kidney disease, unspecified whether stage 3a or 3b CKD (HCC) Malignant 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, estrogen receptor positive (HCC) Bone metastases (HCC) Cheko Stanford DO [address] [place] [address] [facility] [address] [place] [address] Referral ID Status Reason Start Date Expiration Date V isits Requested Visits Authorized [id number] Authorized 04/06/2020 07/05/2020 1 1 Reason Onset Date Comments Refill Request 10/21/2021 Reason Comments Orders Reason Comments Legal Officer - Other Discharge Follo w-up Reason Comments Medication Question Reason Comments Follow Up Reason Comments Radiology NM Reason Comments Established Patient Reason Comments Consent [id number] Specialty Diagnoses / Procedures [facility] Referred To Contact Diagnoses Stage 3 chronic kidney disease, unspecified whether stage 3a or 3b CKD (HCC) Malignant 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, estrogen receptor positive (HCC) Bone metastases (HCC) Procedures denosumab 120 mg/1.7 mL (70 mg/mL) Cheko Buitrago, DO [address] [place] [address] [facility] [address] [place] [address] Referral ID Status Reason Start Date Expiration Date V isits Requested Visits Authorized [id number] Authorized 04/06/2020 09/19/2021 1 1 Reason Comments Lab Orders Reason Onset Date Comments SPP Oral Oncology/hematology - Treatment Referra l 03/13/2022 [employer] Insurance Authorization 03/13/2022 Pending PA Reason Comments Legal Officer - Other Oral Anti-Cance r Agents Education Reason Comments Patient Education [facility] oral chemo education & medication reconciliation Reason Comments Patient Education [facility] follo-up or al chemo education & medication reconciliation Reason Comments Reason Comments Opened In Error Reason Comments Legal Officer - Other Reason Comments Patient Question Reason Comments Established Patient Reason Comments Results X-rays Reason Comments Orders Breast Ultrasound Reason Comments [facility] Approval Reason Comments Follow Up Xgeva Reason Comments Refill Request Specialty Diagnoses / Procedures [facility] Referred To Contact Diagnoses Stage 3 chronic kidney disease, unspecified whether stage 3a or 3b CKD (HCC) Malignant 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, estrogen receptor positive (HCC) Bone metastases Procedures denosumab 120 mg/1.7 mL (70 mg/mL) Cheko Buitrago, DO [address] [place] [address] 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, estrogen receptor positive (HCC) Bone metastases Procedures NM BONE WHOLE BODY BONE &/JOINT IMAGING WHOLE BODY Cheko Stanford, DO [address] [facility] [place] [address] Molecular & Functional Imaging [address] [place] [address] Referral ID Status Reason Start Date Expiration Date V isits Requested Visits Authorized [id number] Closed Auto-Generate d Referral 07/07/2022 08/06/2023 1 1 Specialty Diagnoses / Procedures Referred By Contac t Referred To Contact MOLECULAR & FUNCTIONAL IMAGING Diagnoses Malignant 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, 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) Procedures NM BONE WHOLE BODY BONE &/JOINT IMAGING WHOLE BODY Cheko Stanford, DO [address] [place] [address] Molecular & Functional Imaging [address] [place] [address] Referral ID Status Reason Start Date Expiration Date V isits Requested Visits Authorized [id number] Closed Auto-Generate d Referral 01/21/2023 02/20/2024 1 1 Reason Comments AVS 04/22 INFORMATION SOURCE (unrecogn ized section and content) FOR RECORDS PERTAINING TO PATIENTS WHO ARE OR HAVE BEEN ENROLLED IN A CHEMICAL DEPENDENCY/SUBSTANCEABUSE PROGRAM, SOME INFORMATION MAY BE OMITTED. This clinical summary was aggregated from multiple sources. Caution should be exercised in using it in the provision of clinical care. This summary normalizes information from multiple sources, and as a consequence, information in this document may materially change the coding, format and clinical context of patient data. In addition, data may be omitted in some cases. CLINICAL DECISIONS SHOULD BE BASED ON THE PRIMARY CLINICAL RECORDS. [employer] provides no warranty or guarantee of the accuracy or completeness of information in this document.
== END | disposition home or self-care (01) ==
LOC: ONC 10:27
PROVIDERS: PCP Family Medicine; Referring Provider Internal Medicine Hematology & Oncology; Visit Provider Internal Medicine Hematology & Oncology
DX: C50.812 Malignant neoplasm of overlapping sites of left female breast (principal); C79.51 Secondary malignant neoplasm of bone; Z17.0 Estrogen receptor positive status [ER+]
CPT/HCPCS: 78815; A9552

== ENCOUNTER → 2023-07-15 | Outpatient (CLI) | payer MEDICARE, OTHER, SELFPAY ==
[2023-07-15 14:55] LABS: Hematocrit 34.5 % (37-47); Hemoglobin 11.2 g/dL (12.0-15.0); Mean Corp Hgb Conc 32.5 g/dL (32-36); Mean Corpuscular Hgb 35.1 pg (27.0-32.0); Mean Corpuscular Volume 108.2 fL (81-99); Mean Platelet Vol. 10.1 fl (6.2-12.0); Platelet Count 178 K/mm3 (150-450); RBC Distribution Width CV 13.4 % (11.6-14.6); RBC Distribution Width SD 53.3 fl (35.1-43.9); Red Blood Count 3.19 M/mm3 (4.2-5.4); White Blood Count 5.2 K/mm3 (4.4-11.0)
--- OUTSIDE RECORDS SUMMARY | 2023-07-15 14:56 | XMS RPT_ITS | CCD ---
Author Name Unknown Address [address] [place] [address] Organization [facility] Care Team Providers Care Entertainer & Comic Name Role Phone Malys DO, Celina A Primary Care Provider [phone] Eloy RÍOS MD, Daesung Unavailable Doup RN, Shankar Unavailable Unavailable Malys DO, Celina A Primary Care Provider [phone] Eloy RÍOS MD, Daesung Unavailable Doup RN, Shankar Unavailable Unavailable Masci DO, Cheko A Unavailable July Boyle Unavailable Unavailabl e Malys DO, Celina A Primary Care Provider [phone] Eloy RÍOS MD, Daesung Unavailable Doup RN, Shankar Unavailable Unavailable Masci DO, Cheko A Unavailable Tobias Boyleantha Unavailable Unavailabl e Doup RN, Shankar Unavailable Unavailable Bam Hammond Unavailable [phone] Bma Hammond MD Unavailable MALYS, CELINA A Primary [...] Codeine; Translations: [CODEINE] Drug Allergy 05-01-2010 [facility] (20 sources) HYDROcodone; Translations: [HYDROCODONE] Drug Allergy 08-22-[address] [facility] (20 sources) Meperidine; Translations: [MEPERIDINE (PF)] Drug Allergy 05-01-[address] [facility] (8 sources) Acetaminophen / HYDROcodone; Translations: [HYDROCODONE-ACETA MINOPHEN] Drug Allergy 03-04-2023 Unknown [facility] Medications Current Medications Medication Drug Class(es) [...] Coronary arteriosclerosis; Translations: [Atherosclerotic heart disease of [place] coronary artery without angina pectoris] Onset: 05-01-2010 [...] 01-21-2023 11:04-0400 Body height 151.5 cm Cheko [employer] Work Phone: [facility] 01-21-2023 11:04-040 Body temperature 97.11 [degF] Cheko [email or web address] DO Work Phone: [facility] 01-21-2023 11:04-0400 Body weight 60.78 kg Cheko [employer] Work Phone: [facility] 01-21-2023 11:04-0400 Diastolic blood pressure 77 mm[Hg] [employer]ko [employer] Work Phone: [facility] 01-21-2023 11:04-0400 Heart rate 62 /min Cheko Masci DO Work Phone: [facility] 01-21-2023 11:04-0400 SaO2% (BldA) [Mass fraction] 98 % Cheko Masci DO Work Phone: [facility] 01-21-2023 11:04-0400 Systolic blood pressure 139 mm[Hg] Cheko Masci DO Work Phone: [facility] 08-06-2022 14:41-0500 Body temperature 97.11 [degF] Injection Wstr Work Phone: [facility] 08-06-2022 14:41-0500 Body weight 62.6 kg Injection Wstr Work Phone: [facility] 08-06-2022 14:41-0500 Diastolic blood pressure 56 mm[Hg] Injection Wstr Work Phone: [facility] 08-06-2022 14:41-0500 Heart rate 69 /min Injection Wstr Work Phone: [facility] 08-06-2022 14:41-0500 Systolic blood pressure 105 mm[Hg] Injection Wstr Work Phone: [facility] 07-07-2022 15:34-0500 Body temperature 96.8 [degF] Cheko Masci DO Work Phone: [facility] 07-07-2022 15:34-0500 Body weight 63.28 kg Cheko Masci DO Work Phone: [facility] 07-07-2022 15:34-0500 Diastolic blood pressure 83 mm[Hg] Cheko Masci DO Work Phone: [facility] 07-07-2022 15:34-0500 Heart rate 62 /min Cheko Masci DO Work Phone: [facility] 07-07-2022 15:34-0500 SaO2% (BldA) [Mass fraction] 100 % Cheko Masci DO Work Phone: [facility] 07-07-2022 15:34-0500 Systolic blood pressure 158 mm[Hg] Cheko Masci DO Work Phone: [facility] 06-05-2022 10:33-0500 Body temperature 96.91 [degF] Injection Wstr Work Phone: [facility] 06-05-2022 10:33-0500 Body weight 62.14 kg Injection Wstr Work Phone: [facility] 06-05-2022 10:33-0500 Diastolic blood pressure 70 mm[Hg] Injection Wstr Work Phone: [facility] 06-05-2022 10:33-0500 Heart rate 76 /min Injection Wstr Work Phone: [facility] 06-05-2022 10:33-0500 Systolic blood pressure 120 mm[Hg] Injection Wstr Work Phone: [facility] 12-19-2021 09:35-0400 Body temperature 97 [degF] Injection Wstr Work Phone: [facility] 12-19-2021 09:35-0400 Body weight 62.14 kg Injection Wstr Work Phone: [facility] 12-19-2021 09:35-0400 Diastolic blood pressure 74 mm[Hg] Injection Wstr Work Phone: [facility] 12-19-2021 09:35-0400 Heart rate 75 /min Injection Wstr Work Phone: [facility] 12-19-2021 09:35-0400 SaO2% (BldA) [Mass fraction] 98 % Injection Wstr Work Phone: [facility] 12-19-2021 09:35-0400 Systolic blood pressure 127 mm[Hg] Injection Wstr Work Phone: [facility] 12-03-2021 09:29-0400 Body temperature 96.21 [degF] Cheko Stanford DO Work Phone: [facility] 12-03-2021 09:29-0400 Body weight 61.24 kg Cheko Stanford DO Work Phone: [facility] 12-03-2021 09:29-0400 Diastolic blood pressure 73 mm[Hg] Cheko Stanford DO Work Phone: [facility] 12-03-2021 09:29-0400 Heart rate 69 /min Cheko Masci DO Work Phone: [facility] 12-03-2021 09:29-0400 SaO2% (BldA) [Mass fraction] 96 % Cheko Masci DO Work Phone: [facility] 12-03-2021 09:29-0400 Systolic blood pressure 138 mm[Hg] Cheko Masci DO Work Phone: [facility] 11-20-2021 16:15-0400 Body temperature 97.11 [degF] Cheko Masci DO Work Phone: [facility] 11-20-2021 16:15-0400 Diastolic blood pressure 75 mm[Hg] Cheko Masci DO Work Phone: [facility] 11-20-2021 16:15-0400 Heart rate 71 /min Cheko Masci DO Work Phone: [facility] 11-20-2021 16:15-0400 SaO2% (BldA) [Mass fraction] 100 % Cheko Masci DO Work Phone: [facility] 11-20-2021 16:15-0400 Systolic blood pressure 148 mm[Hg] Cheko Masci DO Work Phone: [facility] 09-19-2021 08:58-0400 Body temperature 96.6 [degF] Injection Wstr Work Phone: [facility] 09-19-2021 08:58-0400 Body weight 64.86 kg Injection Wstr Work Phone: [facility] 09-19-2021 08:58-0400 Diastolic blood pressure 78 mm[Hg] Injection Wstr Work Phone: [facility] 09-19-2021 08:58-0400 Heart rate 68 /min Injection Wstr Work Phone: [facility] 09-19-2021 08:58-0400 Systolic blood pressure 140 mm[Hg] Injection Wstr Work Phone: [facility] Encounters Encounter Date Encounter Type Care Provider Facility Start: 06-19-2023 End: 06-20-2023 ambulatory CELINA A JOHNIEYS Facility:[facility] Start: 06-03-2023 End: 06-03-2023 ambulatory JERONIMO RODRIGUEZ Facility:[facility] Start: 05-22-2023 End: 05-23-2023 ambulatory CELINA A MALYS Facility:[facility] Start: 04-24-2023 End: 04-24-2023 ambulatory CELINA A MALYS Facility:[facility] Start: 04-22-2023 End: 04-22-2023 ambulatory CELINA A MALYS Facility:[facility] Start: 04-22-2023 Telephone encounter Cheko walker DO [...] Activity Detail Author Start: 04-16-2024 Hemoglobin/Hematocrit Hemoglobin/Hem [facility] Start: 04-16-2024 Serum Creatinine Serum Creatinine [facility] Start: 03-18-2024 Hemoglobin/Hematocrit Hemoglobin/Hem [facility] Start: 03-18-2024 Serum Creatinine Serum Creatinine [facility] Start: 03-09-2024 Serum Creatinine Serum Creatinine [facility] Start: 02-19-2024 HEMOGLOBIN/HEMATOCRIT HEMOGLOBIN/HEM [facility] Start: 02-19-2024 SERUM CREATININE SERUM CREATININE [facility] Start: 01-22-2024 HEMOGLOBIN/HEMATOCRIT HEMOGLOBIN/HEM ATOCRIT [facility] Start: 01-22-2024 SERUM CREATININE SERUM CREATININE [facility] Start: 10-30-2023 HEMOGLOBIN/HEMATOCRIT HEMOGLOBIN/HEM ATOCRIT [facility] Start: 10-30-2023 SERUM CREATININE SERUM CREATININE [facility] Start: 08-06-2023 HEMOGLOBIN/HEMATOCRIT HEM[facility]GLOBIN/HEM [facility] Start: 08-06-2023 SERUM CREATININE SERUM CREATININE [facility] Start: 07-07-2023 HEMOGLOBIN/HEMATOCRIT HEMOGLOBIN/HEM ATOCRIT [facility] Start: 07-07-2023 SERUM CREATININE SERUM CREATININE [facility] Start: 06-30-2023 HEMOGLOBIN/HEMATOCRIT HEMOGLOBIN/HEM ATOCRIT [facility] Start: 06-30-2023 SERUM CREATININE SERUM CREATININE [facility] Start: 06-23-2023 HEMOGLOBIN/HEMATOCRIT HEMOGLOBIN/HEM [facility] Start: 06-23-2023 SERUM CREATININE SERUM CREATININE [facility] Start: 06-17-2023 HEMOGLOBIN/HEMATOCRIT HEMOGLOBIN/HEM ATOCRIT [facility] Start: 06-17-2023 SERUM CREATININE SERUM CREATININE [facility] Start: 06-05-2023 HEMOGLOBIN/HEMATOCRIT HEMOGLOBIN/HEM [facility] Start: 06-05-2023 SERUM CREATININE SERUM CREATININE [facility] Start: 05-26-2023 HEMOGLOBIN/HEMATOCRIT HEMOGLOBIN/HEM [facility] Start: 05-26-2023 SERUM CREATININE SERUM CREATININE [facility] Start: 05-19-2023 HEMOGLOBIN/HEMATOCRIT HEMOGLOBIN/HEM [facility] Start: 05-19-2023 SERUM CREATININE SERUM CREATININE [facility] Start: 05-12-2023 HEMOGLOBIN/HEMATOCRIT HEMOGLOBIN/HEM ATOCRIT [facility] Start: 05-12-2023 SERUM CREATININE SERUM CREATININE [facility] Start: 04-28-2023 HEMOGLOBIN/HEMATOCRIT HEMOGLOBIN/HEM [facility] Start: 04-28-2023 SERUM CREATININE SERUM CREATININE [facility] Start: 04-21-2023 HEMOGLOBIN/HEMATOCRIT HEMOGLOBIN/HEM ATOCRIT [facility] Start: 04-21-2023 SERUM CREATININE SERUM CREATININE [facility] Start: 03-10-2023 HEMOGLOBIN/HEMATOCRIT HEMOGLOBIN/HEM [facility] Start: 03-10-2023 SERUM CREATININE SERUM CREATININE [facility] Start: 02-23-2023 End: 04-25-2023 Basic metabolic 2000 panel - Serum or Plasma BASIC METABOLIC PNL Lab STAT Primary hypertension Expected: 02/23/2023, Expires: 04/25/2023 [facility] Work Phone: Immunizations Immunization Date Immunization Notes Care Provider Fa [facility] 04-07-2022 influenza virus vacc ine, unspecified formulation Jeronimo Rodriguez MD Work Phone: [facility] 04-05-2021 influenza, high-dose , quadrivalent vaccine (FLUZONE HIGH DOSE QUADRIVALENT) Cheko Aubreeronnie DO Work Phone: [facility] 02-14-2021 COVID-19 vaccine, fu ll dose (MODERNA) Cheko Aubreeronnie DO Work Phone: [facility] 08-29-2020 COVID-19 vaccine, fu ll dose (MODERNA) Cheko Aubreeronnie DO Work Phone: [facility] 08-02-2020 COVID-19 vaccine, fu ll dose (MODERNA) Cheko Aubreeronnie DO Work Phone: [facility] 03-23-2020 influenza, high-dose , quadrivalent vaccine (FLUZONE HIGH DOSE QUADRIVALENT) Cheko Stanford DO Work Phone: [facility] 03-31-2007 pneumococcal polysaccharide vaccine, 23 valent Cheko Abdoulaye DO Work Phone: [facility] Payers Date Payer Category Payer Medicare [id number] 2015 Private Health Insurance HUMANA HUMANA MEDICARE SUPPLEMENT [id number] 2015-Present [phone] [address] [address] [place] [address] Indemnity [id number] 2015 Private Health Insurance HUMANA HUMANA MEDICARE SUPPLEMENT [id number] 2015-Present [phone] [address] [address] [place] [address] Indemnity [id number] 2010 Medicare MEDICARE MEDICAR E A AND B [id number] 2010-Present [phone] [place] [address] Medicare [id number] 2010 Medicare MEDICARE MEDICAR E A AND B [id number] 2010-Present [phone] [place] [address] Medicare [id number] 2010 Medicare [id number] Social History Date Type Detail Facility Start: 05-26-2011 End: 03-04-2023 Tobacco smoking status NHIS Never smoked tobacco [facility] Start: 08-28-2021 End: 04-22-2023 Alcohol intake Ex-drinker (finding) [facility] Start: 07-07-2019 History SDOH Alcohol Comment occassionally [facility] Start: 1945 Sex Assigned At Not on file [facility] Start: 08-18-2021 End: 03-13-2022 Exposure to SARS-CoV-2 (event) Not sure [facility] Start: 10-29-2021 End: 11-08-2021 Exposure to SARS-CoV-2 (event) Unable to assess [facility] Work Phone: Start: 05-26-2011 End: 03-04-2023 Tobacco use and exposure Smokeless tobacco non-user [facility] Start: 10-29-2022 End: 01-21-2023 History of Social function [facility] Start: 10-29-2022 End: 01-21-2023 Tobacco use panel [facility] Adult Depression Screening Assessment 0 [facility] Start: 07-25-2020 Gender identity Identifies as female gender (finding) [facility] Clinical Notes 09-06-2021 to 06-03-2023 Telephone Encounter - Christy íDaz - 04/23/2023 4:51 PM ESTTelephone Encounter - Christy Díaz - 04/23/2023 12:08 PM ESTTelephone Encounter - Cecilia Yepez - 04/22/2023 5:08 PM EST Note Date & Type Note Facility 06-03-2023 Note HNO ID: [id number] Author: Jeronimo Rodriguez MD Service: ? Author [...] of its relevant components. Jeronimo Rodriguez MD [facility] 04-24-2023 Note HNO ID: [id number] Author: Claudia Henderson LPN Service: ? Author Type: ? Type: Progress Notes Filed: 04/24/2023 2:26 PM Note Text: Pt here for injection of Xgeva. Given sq in right arm (only). Pt tolerated well. Claudia Henderson LPN [facility] 04-23-2023 Miscellaneous Notes Spoke with patient, advising below and updated 2/2 appointment note re: PET CT. Faxed Office note to [facility]. Christy Díaz Called patient but she was unable to discuss scheduling and requested a call back after 3:00 PM today. Attempted to scheduled mamm @ [facility], but no answer. Faxed orders with request to contact patient to schedule and to notify this office of mamm date. Spoke with [facility] and scheduled PET CT at [facility] on 07/14/22 with an arrival time of [...] months. Need to fax ANT orders to [facility] [phone] PET orders to [facility] [phone] documented in this encounter [facility] 04-22-2023 Note HNO ID: [id number] Author: Cheko Stanford, DO Service: ? Author [...] 1 See comment. COMMENT A AND B. ER/IL/Yfa9qvy studies are being performed on sections of tumor and the results from this study will be reported separately ([id number]). MORPHOMETRIC ANALYSIS ER (clone 6F11) >95%, strong intensity IL (clone 16/1E2) 83%, moderate to strong intensity [...] on 08/05/2019. Pathology: FROZEN SECTION DIAGNOSIS A. [place] lymph nodes, biopsy: Two out of two [...] Histologic type: Invasive lobular carcinoma. Histologic grade ([place] grade): Glandular/tubular differentiation score: 3 Nuclear pleomorphism score: 2 Mitotic count score: 1 Overall grade: 1 (score o (more content not included)... [facility] 04-16-2023 Note HNO ID: [id number] Author: Farheen Barragan RT(Gabino) Service: Nuclear Medicine [...] 09:55 PATIENT DISCHARGED TO: Ambulatory patient, left [place] department area. A Diagnostic radioactive procedure has taken place, with no further precautions necessary other than routine body substance precautions. More information regarding radiation safety can be found using this link: [email or web address] [email or web address]%20Nuclear%20Medi cine%20Procedures.[email or web address] SIGNATURE: RT Baldomero(R) PATIENT NAME: Bassam Cisneros DATE: April 16, 2023 TIME: 10:00 AM PAGER/CONTACT #: [facility] 04-16-2023 History of Present illness Narrative RADIOLOGY [...] AM PAGER/CONTACT #: documented in this encounter [facility] 04-10-2023 Miscellaneous Notes SOCIAL WORK FOLLOW UP NOTE: [facility] Date of service: April 10, 2023 Bassam Cisneros is being seen for a follow up social work visit. Today's visit includes: patient TOPICS ADDRESSED: SW received a fax this date [facility] that pt is due to renew her [...] Yes ARIELLA Lainez documented in this encounter [facility] 04-07-2023 Miscellaneous Notes Patient has been [...] Caitlin Moore LPN documented in this encounter [facility] 03-09-2023 Miscellaneous Notes Images from the [...] Cheko Stanford DO documented in this encounter [facility] 03-04-2023 Note HNO ID: [id number] Author: Jeronimo Rodriguez MD Service: ? Author [...] both eyes 03/04/23 -follow-up 2-3 months with [facility]. If not better, to consider superficial keratectomy [...] Rodriguez MD March 04, 2023 2:50 PM [facility] 03-04-2023 History of Present illness Narrative Assessment [...] both eyes 03/04/23 -follow-up 2-3 months with [facility]. If not better, to consider superficial keratectomy [...] 2023 2:50 PM documented in this encounter [facility] 02-22-2023 Miscellaneous Notes I called and [...] Cheko Stanford DO documented in this encounter [facility] 01-21-2023 Note HNO ID: [id number] Author: Cheko Stanford, DO Service: ? Author [...] 1 See comment. COMMENT A AND B. ER/IL/Lwl9jzx studies are being performed on sections of tumor and the results from this study will be reported separately ([id number]). MORPHOMETRIC ANALYSIS ER (clone 6F11) >95%, strong intensity IL (clone 16/1E2) 83%, moderate to strong intensity [...] on 08/05/2019. Pathology: FROZEN SECTION DIAGNOSIS A. [place] lymph nodes, biopsy: Two out of two [...] 1 (score o (more content not included)... [facility] 01-21-2023 History of Present illness Narrative Diagnosis: [...] 1 See comment. COMMENT A & B. ER/IL/Alo9okd studies are being performed on sections of tumor and the results from this study will be reported separately ([id number]). MORPHOMETRIC ANALYSIS ER (clone 6F11) >95%, strong intensity IL (clone 16/1E2) 83%, moderate to strong intensity [...] on 08/05/2019. Pathology: FROZEN SECTION DIAGNOSIS A. [place] lymph nodes, biopsy: Two out of two [...] Histologic type: Invasive lobular carcinoma. Histologic grade (Kentland grade): Glandular/tubular differentiation score: 3 Nuclear pleomorphism [...] (S20-115 / RF20-31) ER: >95%, strong intensity IL: 83%, moderate to strong intensity Her2: 0 [...] increased glucose metabolism. She was admitted to [facility] 10/25 through 11/07 for neutropenic fever. [...] snyder. CARDIOVASCULAR: Rhythm is regular. 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 Left mastectomy site--no chest wall mass or nodule. Right breast--dense tissue. No discrete mass. ABDOMEN: The abdomen is nondistended. Extremities: No swelling or edema. SKIN: No jaundice or rash. No petechiae. NEUROLOGIC: security incident response engineer II-XII are grossly intact. Less generalized lower [...] 4.00 k/uL 1.74 1.83 1.44 1.64 1.92 [place]% % 7.9 10.0 8.6 8.9 7.7 Abs [place] <0.87 k/uL 0.25 0.44 0.39 0.36 0.32 [...] Bone metastases (HCC) Assessment: -cT3 cN0 M0 ER/IL positive, HER2 negative infiltrating lobular carcinoma of the left breast. -pT3 pN3a MX stage IIIC ER/IL positive, HER2 negative infiltrating lobular carcinoma of [...] which included preparing to see the patient, [id number] patient care, completing clinical documentation, obtaining and/or reviewing separately obtained history, performing a medically appropriate examination, counseling and educating the patient/family/caregiver, ordering medications, tests, or procedures, communicating with other HCPs (not separately reported), and communicating results to the patient/family/caregiver. Cheko Stanford DO documented in this encounter [facility] 01-21-2023 Nurse Note Pt here for injection of xgeva. Given sq in right arm (always). Pt tolerated well. For all other information regarding today, see today's OV note with Dr Stanford. Claudia Henderson LPN documented in this encounter [facility] 11-28-2022 Miscellaneous Notes Patient has been [...] Caitlin Holloway LPN documented in this encounter [facility] 11-26-2022 Miscellaneous Notes Pt returned call. [...] Cheko Stanford DO documented in this encounter [facility] 10-29-2022 Note HNO ID: [id number] Author: Cheko Stanford DO Service: ? Author [...] 1 See comment. COMMENT A AND B. ER/IL/Wqd7ado studies are being performed on sections of tumor and the results from this study will be reported separately ([id number]). MORPHOMETRIC ANALYSIS ER (clone 6F11) >95%, strong intensity IL (clone 16/1E2) 83%, moderate to strong intensity [...] on 08/05/2019. Pathology: FROZEN SECTION DIAGNOSIS A. Truro lymph nodes, biopsy: Two out of two [...] 1 (score of (more content not included)... [facility] 10-29-2022 Nurse Note Xgeva injection administered, right arm, tolerated well, no immediate adverse reactions noted. See office notes Caitlin Holloway LPN documented in this encounter [facility] 10-06-2022 Miscellaneous Notes Patient has been [...] Caitlin Holloway LPN documented in this encounter [facility] 09-11-2022 Miscellaneous Notes Patient has been [...] Caitlin Holloway LPN documented in this encounter [facility] 08-14-2022 Miscellaneous Notes Patient has been [...] Caitlin Holloway LPN documented in this encounter [facility] 08-06-2022 Nurse Note Pt here for injection of xgeva. Given sq in right arm -always. Pt tolerated well. Claudia Henderson LPN documented in this encounter [facility] 08-06-2022 Miscellaneous Notes Patient's schedule has been updated as requested below. Janel Catherine Pss Xgeva injections can be changed back to an every 3-month schedule starting 3 months from tomorrow's injection. Cheko Stanford DO documented in this encounter [facility] 07-23-2022 Miscellaneous Notes SW received fax this date stating pt is approved for [facility] assistance for Russel thorough 06/14/2023. SW sent fax to internal scanning and called to inform pt of acceptance. Pt appreciative. ARIELLA Lainez documented in this encounter [facility] 07-16-2022 Miscellaneous Notes Order faxed as requested. Dorie Clayton LPN Order filed. Cheko Stanford DO Pt had mamm yesterday, needs additional imaging. Asking for an US order. please file. Per Mamm at [facility] well defined nodule in the upper lateral aspect of the right breast. Claudia Henderson LPN [facility] is calling to request a right breast ultrasound order to be faxed as soon as possible to [phone]. The patient is currently at the facility. documented in this encounter [facility] 07-14-2022 Note HNO ID: [id number] Author: RT Baldomero(R) Service: Nuclear Medicine Author [...] 12:15 PATIENT DISCHARGED TO: Ambulatory patient, left [place] department area. A Diagnostic radioactive procedure has taken place, with no further precautions necessary other than routine body substance precautions. More information regarding radiation safety can be found using this link: [email or web address] tection [email or web address]%20Nuclear%20Medi cine%20Procedures.pdf SIGNATURE: VERNON Alexandre PATIENT NAME: Bassam Cisneros DATE: July 14, 2022 TIME: 3:18 PM PAGER/CONTACT #: [facility] 07-14-2022 History of Present illness Narrative RADIOLOGY [...] 12:15 PATIENT DISCHARGED TO: Ambulatory patient, left [place] department area. A Diagnostic radioactive procedure has taken place, with no further precautions necessary other than routine body substance precautions. More information regarding radiation safety can be found using this link: [email or web address] [email or web address]-%20Diagnostic%20Nuclear %20Medicine%[email or web address] SIGNATURE: VERNON Alexandre PATIENT NAME: Bassam Cisneros DATE: July 14, 2022 TIME: 3:18 PM PAGER/CONTACT #: documented in this encounter [facility] 07-09-2022 Nurse Note Pt here for injection of Xgeva. Given sq in right arm. Pt tolerated well. Claudia Henderson LPN documented in this encounter [facility] 07-08-2022 Miscellaneous Notes Left detailed message on voicemail , also sent message to pt. Via my chart. Caitlin Holloway LPN Can let her know the x-rays of her back shows no obvious sign of cancer. A lot of degenerative/arthritis changes. Keep bone scan scheduled. Cheko Stanford DO documented in this encounter [facility] 07-07-2022 Note HNO ID: [id number] Author: RT Lucy(R) Service: ? Author Type: [...] RT Lucy(R) July 07, 2022 4:44 PM [facility] 07-07-2022 Note HNO ID: [id number] Author: Cheko Stanford, DO Service: ? Author [...] 1 See comment. COMMENT A AND B. ER/IL/Tkt9wwj studies are being performed on sections of tumor and the results from this study will be reported separately ([id number]). MORPHOMETRIC ANALYSIS ER (clone 6F11) >95%, strong intensity IL (clone 16/1E2) 83%, moderate to strong intensity [...] on 08/05/2019. Pathology: FROZEN SECTION DIAGNOSIS A. Truro lymph nodes, biopsy: Two out of two [...] Histologic type: Invasive lobular carcinoma. Histologic grade (Kentland grade): Glandular/tubular differentiation score: 3 Nuclear pleomorphism score: 2 Mitotic count score: 1 Overall grade: 1 (score of (more content not included)... [facility] 07-07-2022 History of Present illness Narrative Radiology [...] 2022 4:44 PM documented in this encounter [facility] 07-07-2022 History of Present illness Narrative [...] 1 See comment. COMMENT A & B. ER/IL/Ttu8apk studies are being performed on sections of tumor and the results from this study will be reported separately ([id number]). MORPHOMETRIC ANALYSIS ER (clone 6F11) >95%, strong intensity IL (clone 16/1E2) 83%, moderate to strong intensity [...] on 08/05/2019. Pathology: FROZEN SECTION DIAGNOSIS A. Truro lymph nodes, biopsy: Two out of two [...] (S20-115 / RF20-31) ER: >95%, strong intensity IL: 83%, moderate to strong intensity Her2: 0 [...] increased glucose metabolism. She was admitted to [facility] 10/25 through 11/07 for neutropenic fever. [...] snyder. CARDIOVASCULAR: Rhythm is regular. 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 Left mastectomy site--no chest wall mass or nodule. Right breast--dense tissue. No discrete mass. ABDOMEN: The abdomen is nondistended. Extremities: No swelling or edema. SKIN: No jaundice or rash. No petechiae. NEUROLOGIC: security incident response engineer II-XII are grossly intact. 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 -pT3 pN3a MX stage IIIC ER/IL positive, HER2 negative infiltrating lobular carcinoma of [...] Cheko Stanford DO documented in this encounter [facility] 06-30-2022 Miscellaneous Notes Spoke with pt. Her kidney function continues to worsen. She needs to contact her client coordinator to set up an appointment as soon as possible. Faxed chemistry panels to her client coordinator also with copy of this note. Pt. Voiced understanding. She will contact them. Caitlin Holloway LPN Her kidney function continues to worsen. She needs to contact her client coordinator to set up an appointment as soon as possible. Please fax chemistry panels to her client coordinator. Cheko Stanford DO documented in this encounter [facility] 06-06-2022 Miscellaneous Notes Spoke with pt [...] Claudia Henderson LPN documented in this encounter [facility] 06-05-2022 Nurse Note Pt here for injection of Xgeva. Given sq in left arm. Pt tolerated well. Claudia Henderson LPN documented in this encounter [facility] 05-29-2022 Miscellaneous Notes Patient informed of [...] was medication related. documented in this encounter [facility] 04-29-2022 Miscellaneous Notes printed and faxed. Claudia Henderson LPN Her creatinine is a little higher than it was in the past. She is under the care of a client coordinator. Please fax a copy of this note, my most recent OV note and CMP results since November to her client coordinator. Cheko Stanford DO documented in this encounter [facility] 04-28-2022 Miscellaneous Notes ORAL ANTI-CANCER AGENTS [...] Shankar Alexander RN documented in this encounter [facility] 04-25-2022 Miscellaneous Notes PSYCHOSOCIAL ASSESSMENT Date [...] is Child/Children: Yes. How many? 2 sons medicare coordinator arrangements needed: No Siblings: Yes Grandchild(betzy): 3 granddaughters (21, 19 and 18) Home Health Provider: No Community Services: No Ruth Identified: Yes Christianity/Spirituality: Bahai Are these practices or beliefs that may affect or influence treatment? No EMPLOYMENT/FINANCIAL/HEALTH INSURANCE: Employment: Retired Income source: Social Security Insurance: Medicare with co-insurance Prescription coverage: Yes Is the patient appropriate for referral to [facility] COBRA Assistance program? No Financial Distress: [...] this encounter Health Care Durable Power of [employer] Specialist: Not addressed during this encounter Scanned into [...] reports her tow adult sons live in [place] and [place]. Her three grandchildren live there as well. [...] in: ARIELLA Wood documented in this encounter [facility] 04-15-2022 History of Present illness Narrative Images from the original note were not included. [facility] Department of Pharmacy Oncology Pharmacy Medication Education Patient Name: Bassam Cisneros Primary Oncologist: Dr. Cheko Stanford Diagnosis: Metastatic breast cancer, ER/IL+, HER2- Bassam Cisneros is a 76 year [...] Celina Malone RPh documented in this encounter [facility] 04-14-2022 History of Present illness Narrative Attemped to call patient for follow-up Verzenio oral chemo education & medication reconciliation. Left a voicemail. Celina Malone, Gabino.Ph. Regional Oncology Clinical Pharmacist documented in this encounter [facility] 04-08-2022 Miscellaneous Notes Patient started/will start [...] Pharmacy phone numbers, Eating Hints Booklet, and [facility] Oral Chemotherapy booklet: Yes DRUG-SPECIFIC EDUCATION: 1.) [...] Shankar Alexander RN documented in this encounter [facility] 03-13-2022 History of Present illness Narrative [facility] received prescription(s) for Verzenio from Dr. Stanford's office. Benefits investigation was conducted, indicating that a prior authorization is required by patient's insurance plan with [employer]. Encounter will be updated once prior authorization has been submitted by [facility]. ZEN Sky documented in this encounter [facility] 03-13-2022 History of Present illness Narrative Pt here for injection of Xgeva. Given sq in right arm. Pt tolerated well. For all other information regarding today, see today's OV note with Dr Stanford. Claudia Henderson LPN documented in this encounter [facility] 03-07-2022 Miscellaneous Notes Order filed. Cheko Stanford DO Pended. Claudia Henderson LPN When placing orders for pt please make this order (creatinine ,bmp or cmp) stats stat please , pt's appt Is on 03/10/22 , for CT documented in this encounter [facility] 12-19-2021 History of Present illness Narrative Pt here for injection of xgeva. Given IM in right arm. Pt tolerated well. Claudia Henderson LPN documented in this encounter [facility] 12-19-2021 History of Present illness Narrative [...] Karen Helm RN documented in this encounter [facility] 12-03-2021 History of Present illness Narrative [...] 1 See comment. COMMENT A & B. ER/IL/Alr6ibj studies are being performed on sections of tumor and the results from this study will be reported separately ([id number]). MORPHOMETRIC ANALYSIS ER (clone 6F11) >95%, strong intensity IL (clone 16/1E2) 83%, moderate to strong intensity [...] on 08/05/2019. Pathology: FROZEN SECTION DIAGNOSIS A. Truro lymph nodes, biopsy: Two out of two [...] Histologic type: Invasive lobular carcinoma. Histologic grade (Kentland grade): Glandular/tubular differentiation score: 3 Nuclear pleomorphism [...] (S20-115 / RF20-31) ER: >95%, strong intensity IL: 83%, moderate to strong intensity Her2: 0 [...] increased glucose metabolism. She was admitted to [facility] 10/25 through 11/07 for neutropenic fever. [...] 7 day course. She was discharged to [facility]. She is currently on oxygen supplemental 3 [...] No jaundice or rash. No petechiae. NEUROLOGIC: security incident response engineer II-XII are grossly intact. She still has [...] Abs Lymph 1.00 - 4.00 k/uL 1.41 Newport% % 21.8 Abs Newport <0.87 k/uL 1.00 (H) Eosin% % 4.6 [...] Bone metastases (HCC) Assessment: -cT3 cN0 M0 ER/IL positive, HER2 negative infiltrating lobular carcinoma of the left breast. -pT3 pN3a MX stage IIIC ER/IL positive, HER2 negative infiltrating lobular carcinoma of [...] Cheko Stanford DO documented in this encounter [facility] 11-28-2021 History of Present illness Narrative [...] 07:45 PATIENT DISCHARGED TO: Ambulatory patient, left [place] department area. A Diagnostic radioactive procedure has taken place, with no further precautions necessary other than routine body substance precautions. More information regarding radiation safety can be found using this link: [email or web address] SIGNATURE: VERNON Alexandre PATIENT NAME: Bassam Cisneros DATE: November 28, 2021 TIME: 9:11 AM PAGER/CONTACT #: documented in this encounter [facility] 11-20-2021 History of Present illness Narrative [...] 1 See comment. COMMENT A & B. ER/IL/Ocu4gjw studies are being performed on sections of tumor and the results from this study will be reported separately ([id number]). MORPHOMETRIC ANALYSIS ER (clone 6F11) >95%, strong intensity IL (clone 16/1E2) 83%, moderate to strong intensity [...] on 08/05/2019. Pathology: FROZEN SECTION DIAGNOSIS A. Truro lymph nodes, biopsy: Two out of two [...] Histologic type: Invasive lobular carcinoma. Histologic grade (Kentland grade): Glandular/tubular differentiation score: 3 Nuclear pleomorphism [...] (S20-115 / RF20-31) ER: >95%, strong intensity IL: 83%, moderate to strong intensity Her2: 0 [...] increased glucose metabolism. She was admitted to [facility] 10/25 through 11/07 for neutropenic fever. [...] 7 day course. She was discharged to [facility]. She is currently on oxygen supplemental 3 [...] No jaundice or rash. No petechiae. NEUROLOGIC: security incident response engineer II-XII are grossly intact. LABS: Component Latest [...] Abs Lymph 1.00 - 4.00 k/uL 1.41 Newport% % 21.8 Abs Newport <0.87 k/uL 1.00 (H) Eosin% % 4.6 [...] Bone metastases (HCC) Assessment: -cT3 cN0 M0 ER/IL positive, HER2 negative infiltrating lobular carcinoma of the left breast. -pT3 pN3a MX stage IIIC ER/IL positive, HER2 negative infiltrating lobular carcinoma of [...] children 1 of whom lives in the [place] area and 1 in the [place] area. She has friends close by though who can help her. -Discussed plan to obtain repeat bone scan. If evidence of disease then start low-dose Verzenio. -Her son and [id number]-jff were present with her today. I answered [...] Cheko Stanford DO documented in this encounter [facility] 11-08-2021 Miscellaneous Notes Dora returned call. Pt scheduled. Tried to contact Dora, went to , left a message for her to return our call. Jessica Quach Spoke to patient. Patient would like to utilize the transportation services. Please contact [facility] at [phone] and schedule establish complex about 1 to 2 weeks after discharge. CBC/CMP Thank you. Shankar Alexander RN Received a call back from Juli at [facility] and they are able to provide transportation if needed. To schedule an appointment/facilitate transportation, please contact [facility] [place] at [phone]. This nurse will contact patient for a discharge follow-up call tomorrow and will discuss her next appointment at that time. Shankar Alexander RN Spoke to Sandra and informed her of Dr. Stanford's response. Patient will be transferred to [facility] today. Discussed the need for an OV/labs in 1-2 weeks. Called [place] to see if they offer transportation to [...] palbociclib. Cheko Stanford DO Sandra, a social media designer with [facility], called as patient is being discharged tentatively to [facility] and they are wanting to know which chemo drugs will be continuing. Please advise. Christy Díaz documented in this encounter [facility] 11-08-2021 Miscellaneous Notes DISCHARGE CALL BACK Today's date: November 08, 2021 Notified of Pt discharge by: [facility] LANDON informed our office yesterday Patient discharged on 11/07/2021 from [facility] to [facility] Primary Cancer Diagnosis: IV breast cancer Admitting Diagnosis: Neutropenic Fever Discharge Summary/SBAR reviewed: Yes Handoff Discussed with Transitional [place]arrow Worker Helper: N/A Psychosocial Risk Factors: None If patient discharged to SNF/Rehab Facility, phone call completed to reinforce discharge instructions and follow up: Yes, spoke with Juli yesterday Call Disposition: Spoke to patient. Patient stated she is weak . Patient stated she was discharged to [facility] yesterday and she had a [...] would like to utilize transportation provided by [facility]. A message was sent in a separate [...] Shankar Alexander RN documented in this encounter [facility] 10-25-2021 Miscellaneous Notes Advise ED evaluation. [...] Dorie Clayton LPN documented in this encounter [facility] 10-25-2021 Miscellaneous Notes Orders filed. Cheko Stanford DO Patient here for labs. Please file order. I included a UA C&S based off of symptoms in MyChart message. Dorie Clayton LPN documented in this encounter [facility] 10-21-2021 Miscellaneous Notes Spoke with Pt. , she called pharmacy and they are shipping her medications. They did not need any new rx sent. Caitlin Holloway LPN documented in this encounter [facility] 10-04-2021 Miscellaneous Notes I spoke with patient. She is planning to go to [place] to visit family for 2-3 weeks. Patient will locate a local lab and MyChart the phone/fax number so that I can fax lab orders there. Dorie Clayton LPN documented in this encounter [facility] 09-19-2021 Nurse Note Patient presents with: [...] Caitlin Holloway LPN documented in this encounter [facility] 09-16-2021 Miscellaneous Notes SCHEDULED. Angella Gallagher [...] Cheko Stanford DO documented in this encounter [facility] 09-12-2021 Miscellaneous Notes PET scan completed 09/11/2021. Dorie Clayton LPN documented in this encounter [facility] 09-06-2021 Miscellaneous Notes I reached out to [facility] and spoke with Kelsey. She will call patient now to reschedule PET scan. option # 1 Dorie Clayton LPN documented in this encounter [facility] Bone [facility] ([facility])- Primary [...] and bone marrow [facility] Diagnosis Malignant 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, estrogen receptor positive (HCC)- Primary Dysuria [facility] Diagnosis Malignant 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, estrogen receptor positive (HCC)- Primary Bone metastases (HCC) Secondary malignant neoplasm of bone and bone marrow [facility] Diagnosis Malignant 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, estrogen receptor positive (HCC)- Primary Bone metastases (HCC) Secondary malignant neoplasm of bone and bone marrow [facility] Diagnosis Malignant 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, estrogen receptor positive (HCC) Bone metastases (HCC) Secondary malignant neoplasm of bone and bone marrow [facility]* Diagnosis Malignant 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, estrogen receptor positive (HCC)- Primary Bone metastases (HCC) Secondary malignant neoplasm of bone and bone marrow [facility] Diagnosis Bone metastases (HCC)- Primary 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, estrogen receptor positive (HCC) Stage 3 chronic kidney disease, unspecified whether stage 3a or 3b CKD (HCC) [facility] Diagnosis Malignant 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, estrogen receptor positive (HCC)- Primary [facility] Diagnosis Malignant 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, estrogen receptor positive (HCC)- Primary Bone metastases (HCC) Secondary malignant neoplasm of bone and bone marrow [facility] Diagnosis Bone metastases (HCC)- Primary 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, estrogen receptor positive (HCC) Stage 3 chronic kidney disease, unspecified whether stage 3a or 3b CKD (HCC) [facility] Diagnosis Malignant 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, estrogen receptor positive (HCC)- Primary [facility] Diagnosis Malignant neoplasm of overlapping sites [...] and bone marrow documented in this encounter [facility] for referral (narrative)* Diagnostic Procedure Only (Routine) - Authorized Specialty Diagnoses / Procedures Referred By Thu smith Referred To Contact MOLECULAR & FUNCTIONAL IMAGING Diagnoses Malignant 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, estrogen receptor positive (HCC) Bone metastases (HCC) Procedures NM BONE WHOLE BODY BONE &/JOINT IMAGING WHOLE BODY Cheko Stanford DO [address] [place] [address] Molecular & Functional Imaging [address] [place] [address] Referral ID Status Reason Start Date Expiration Date Visits Requested Visits Authorized [id number] Authorized Auto-Generat ed Referral 11/20/2021 12/20/2022 1 1 [facility] for referral (narrative)* Diagnostic Procedure Only (Routine) - Closed Specialty Diagnoses / Procedures Referred By Thu smith Referred To Contact MOLECULAR & FUNCTIONAL IMAGING Diagnoses Malignant 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, estrogen receptor positive (HCC) Bone metastases (HCC) Procedures NM BONE WHOLE BODY BONE &/JOINT IMAGING WHOLE BODY Cheko Stanford DO [address] [place] [address] Molecular & Functional Imaging [address] [place] [address] Referral ID Status Reason Start Date Expiration Date V isits Requested Visits Authorized [id number] Closed Auto-Generate d Referral 11/20/2021 12/20/2022 1 1 [facility] for referral (narrative)* Diagnostic Procedure Only (Routine) - Pending Review Specialty Diagnoses / Procedures Referred By Thu smith Referred To Contact BR IMAGING Diagnoses Encounter for screening mammogram for malignant neoplasm of breast Procedures ANT SCREENING W IVÁN SCREENING DIGITAL BREAST TOMOSYNTHESIS BI SCREENING MAMMOGRAPHY BI 2-VIEW BREAST INC CAD Cheko Stanford, DO [address] [place] [address] Br Imaging [address] [place] [address] Referral ID Status Reason Start Date Expiration Date Visits Requested Visits Authorized [id number] Pending Review Auto-Generat ed Referral 07/07/2022 08/06/2023 1 1 * Diagnostic Procedure Only (Routine) - Closed Specialty Diagnoses / Procedures [facility] To Contact XR IMAGING Diagnoses Malignant 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, estrogen receptor positive (HCC) Bone metastases (HCC) Procedures XR LUMBAR LIMITED 2V AP/LAT RADEX SPINE LUMBOSACRAL 2/3 VIEWS Cheko Stanford, DO [address] [facility] [place] [address] Xr Imaging Referral ID Status Reason Start Date Expiration Date V isits Requested Visits Authorized [id number] Closed Auto-Generate d Referral 07/07/2022 08/06/2023 1 1 * Diagnostic Procedure Only (Routine) - Closed Specialty Diagnoses / Procedures [facility] Referred To Contact XR IMAGING Diagnoses Malignant 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, estrogen receptor positive (HCC) Bone metastases (HCC) Procedures XR THORACIC LIMITED 2V AP/LAT RADEX SPINE THORACIC 2 VIEWS Cheko Stanford, DO [address] [facility] [place] [address] Xr Imaging Referral ID Status Reason Start Date Expiration Date V isits Requested Visits Authorized [id number] Closed Auto-Generate d Referral 07/07/2022 08/06/2023 1 1 * Diagnostic Procedure Only (Routine) - Authorized Specialty Diagnoses / Procedures [facility] Referred To Contact MOLECULAR & FUNCTIONAL IMAGING Diagnoses Malignant 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, estrogen receptor positive (HCC) Bone metastases (HCC) Procedures NM BONE WHOLE BODY BONE &/JOINT IMAGING WHOLE BODY Cheko Stanford, DO [address] [place] [address] Molecular & Functional Imaging [address] [place] [address] Referral ID Status Reason Start Date Expiration Date Visits Requested Visits Authorized [id number] Authorized Auto-Generat ed Referral 07/07/2022 08/06/2023 1 1 [facility] for referral (narrative)* Diagnostic Procedure Only (Routine) - Pending Review Specialty Diagnoses / Procedures Referred By Thu smith Referred To Contact BR IMAGING Diagnoses Abnormal mammogram Procedures US BREAST LTD RT US BREAST UNI REAL TIME WITH IMAGE LIMITED Cheko Stanford DO [address] [place] [address] Br Imaging [address] [place] [address] Referral ID Status Reason Start Date Expiration Date Visits Requested Visits Authorized [id number] Pending Review Auto-Generat ed Referral 07/16/2022 08/15/2023 1 1 [facility] for referral (narrative)* Diagnostic Procedure Only (Routine) - Authorized Specialty Diagnoses / Procedures Referred By Thu smith Referred To Contact MOLECULAR & FUNCTIONAL IMAGING Diagnoses Malignant 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, 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) Procedures NM BONE WHOLE BODY BONE &/JOINT IMAGING WHOLE BODY Cheko Stanford DO [address] [place] [address] Molecular & Functional Imaging [address] [place] [address] Referral ID Status Reason Start Date Expiration Date Visits Requested Visits Authorized [id number] Authorized Auto-Generat ed Referral 01/21/2023 02/20/2024 1 1 [facility] for referral (narrative)* Diagnostic Procedure Only (Routine) - Closed Specialty Diagnoses / Procedures Referred By Contac t Referred To Contact XR IMAGING Diagnoses Malignant 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, estrogen receptor positive (HCC) Bone metastases Procedures XR LUMBAR LIMITED 2V AP/LAT RADEX SPINE LUMBOSACRAL 2/3 VIEWS Cheko Stanford DO [address] [place] [address] [place] [address] Referral ID Status Reason Start Date Expiration Date V isits Requested Visits Authorized [id number] Closed Auto-Generate d Referral 07/07/2022 08/06/2023 1 1 * Diagnostic Procedure Only (Routine) - Closed Specialty Diagnoses / Procedures Referred By Contac t Referred To Contact XR IMAGING Diagnoses Malignant 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, estrogen receptor positive (HCC) Bone metastases Procedures XR THORACIC LIMITED 2V AP/LAT RADEX SPINE THORACIC 2 VIEWS Cheko Stanford, DO [address] [place] [address] [place] [address] Referral ID Status Reason Start Date Expiration Date V isits Requested Visits Authorized [id number] Closed Auto-Generate d Referral 07/07/2022 08/06/2023 1 1 [facility] for referral (narrative)* Diagnostic Procedure Only (Routine) - Closed Specialty Diagnoses / Procedures [facility] To Contact MOLECULAR & FUNCTIONAL IMAGING Diagnoses Malignant 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, estrogen receptor positive (HCC) Bone metastases Procedures NM BONE WHOLE BODY BONE &/JOINT IMAGING WHOLE BODY Cheko Stanford, DO [address] [place] [address] Molecular & Functional Imaging [address] [place], [place] [id number] Referral ID Status Reason Start Date Expiration Date V isits Requested Visits Authorized [id number] Closed Auto-Generate d Referral 07/07/2022 08/06/2023 1 1 [facility] for referral (narrative)* Diagnostic Procedure Only (Routine) - Closed Specialty Diagnoses / Procedures [facility] To Contact MOLECULAR & FUNCTIONAL IMAGING Diagnoses Malignant 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, 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) Procedures NM BONE WHOLE BODY BONE &/JOINT IMAGING WHOLE BODY Cheko Stanford, DO [address] [place] [address] Molecular & Functional Imaging [address] [place] [address] Referral ID Status Reason Start Date Expiration Date V isits Requested Visits Authorized [id number] Closed Auto-Generate d Referral 01/21/2023 02/20/2024 1 1 [facility] for visit Narrative* Diagnostic Procedure Only (Routine) - Closed Specialty Diagnoses / Procedures [facility] To Contact MOLECULAR & FUNCTIONAL IMAGING Diagnoses Malignant 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, estrogen receptor positive (HCC) Bone metastases (HCC) Procedures NM BONE WHOLE BODY BONE &/JOINT IMAGING WHOLE BODY Cheko Stanford, DO [address] [place] [address] Molecular & Functional Imaging [address] [place] [address] Referral ID Status Reason Start Date Expiration Date V isits Requested Visits Authorized [id number] Closed Auto-Generate d Referral 11/20/2021 12/20/2022 1 1 [facility] for visit Narrative* Diagnostic Procedure Only (Routine) - Closed Specialty Diagnoses / Procedures [facility] Referred To Contact XR IMAGING Diagnoses Malignant 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, estrogen receptor positive (HCC) Bone metastases Procedures XR LUMBAR LIMITED 2V AP/LAT RADEX SPINE LUMBOSACRAL 2/3 VIEWS Cheko Stanford, DO [address] [place] [address] Xr Imaging [id number] Referral ID Status Reason Start Date Expiration Date V isits Requested Visits Authorized [id number] Closed Auto-Generate d Referral 07/07/2022 08/06/2023 1 1 [facility] for visit Narrative* Diagnostic Procedure Only (Routine) - Closed Specialty Diagnoses / Procedures Referred By Thu smith Referred To Contact MOLECULAR & FUNCTIONAL IMAGING Diagnoses Malignant 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, estrogen receptor positive (HCC) Bone metastases Procedures NM BONE WHOLE BODY BONE &/JOINT IMAGING WHOLE BODY Cheko Stanford DO [address] [place] [address] Molecular & Functional Imaging [address] [place] [address] Referral ID Status Reason Start Date Expiration Date V isits Requested Visits Authorized [id number] Closed Auto-Generate d Referral 07/07/2022 08/06/2023 1 1 [facility] Medications Administered Section Inactive Administered Medications [...] W/O CONTRAST Cheko Stanford, DO [address] [place] [address] Ct Imaging Referral ID Status Reason Start Date Expiration Date Visits Requested Visits Authorized [id number] Authorized Auto-Generat ed Referral 12/03/2021 01/02/2023 1 1 Specialty Diagnoses / Procedures Referred By Thu smith Referred To Contact CT IMAGING Diagnoses Malignant 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, estrogen receptor positive (HCC) Bone metastases (HCC) Procedures CT CHEST WO IVCON DIAGNOSTIC COMPUTED TOMOGRAPHY THORAX W/O CNTRST Cheko Stanford, DO [address] [place] [address] Ct Imaging Referral ID Status Reason Start Date Expiration Date Visits Requested Visits Authorized [id number] Authorized Auto-Generat ed Referral 12/03/2021 01/02/2023 1 1 Specialty Diagnoses / Procedures Referred By Thu smith Referred To Contact MOLECULAR & FUNCTIONAL IMAGING Diagnoses Malignant 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, estrogen receptor positive (HCC) Bone metastases (HCC) Procedures NM BONE WHOLE BODY BONE &/JOINT IMAGING WHOLE BODY Cheko Stanford DO [address] [place] [address] Molecular & Functional Imaging [address] [place] [address] Referral ID Status Reason Start Date Expiration Date Visits Requested Visits Authorized [id number] Authorized Auto-Generat ed Referral 12/03/2021 01/02/2023 1 [...] or prosecute any alcohol or drug abuse patient.[facility] the event this information is protected by the Federal Confidentiality of Alcohol and Drug Abuse Patient Records regulations: The Federal rules restrict any use of the information to criminally investigate or prosecute any alcohol or drug abuse patient.[facility] the event this information is protected by the Federal Confidentiality of Alcohol and Drug Abuse Patient Records regulations: The Federal rules restrict any use of the information to criminally investigate or prosecute any alcohol or drug abuse patient.[facility] the event this information is protected by the Federal Confidentiality of Alcohol and Drug Abuse Patient Records regulations: The Federal rules restrict any use of the information to criminally investigate or prosecute any alcohol or drug abuse patient.[facility] the event this information is protected by the Federal Confidentiality of Alcohol and Drug Abuse Patient Records regulations: The Federal rules restrict any use of the information to criminally investigate or prosecute any alcohol or drug abuse patient.[facility] the event this information is protected by the Federal Confidentiality of Alcohol and Drug Abuse Patient Records regulations: The Federal rules restrict any use of the information to criminally investigate or prosecute any alcohol or drug abuse patient.[facility] the event this information is protected by the Federal Confidentiality of Alcohol and Drug Abuse Patient Records regulations: The Federal rules restrict any use of the information to criminally investigate or prosecute any alcohol or drug abuse patient.[facility] the event this information is protected by the Federal Confidentiality of Alcohol and Drug Abuse Patient Records regulations: The Federal rules restrict any use of the information to criminally investigate or prosecute any alcohol or drug abuse patient.[facility]In the event this information is protected by the Federal Confidentiality of Alcohol and Drug Abuse Patient Records regulations: The Federal rules restrict any use of the information to criminally investigate or prosecute any alcohol or drug abuse patient.[facility] the event this information is protected by the Federal Confidentiality of Alcohol and Drug Abuse Patient Records regulations: The Federal rules restrict any use of the information to criminally investigate or prosecute any alcohol or drug abuse patient.[facility] the event this information is protected by the Federal Confidentiality of Alcohol and Drug Abuse Patient Records regulations: The Federal rules restrict any use of the information to criminally investigate or prosecute any alcohol or drug abuse patient.[facility]In the event this information is protected by the Federal Confidentiality of Alcohol and Drug Abuse Patient Records regulations: The Federal rules restrict any use of the information to criminally investigate or prosecute any alcohol or drug abuse patient.[facility]In the event this information is protected by the Federal Confidentiality of Alcohol and Drug Abuse Patient Records regulations: The Federal rules restrict any use of the information to criminally investigate or prosecute any alcohol or drug abuse patient.[facility]In the event this information is protected by the Federal Confidentiality of Alcohol and Drug Abuse Patient Records regulations: The Federal rules restrict any use of the information to criminally investigate or prosecute any alcohol or drug abuse patient.[facility]In the event this information is protected by the Federal Confidentiality of Alcohol and Drug Abuse Patient Records regulations: The Federal rules restrict any use of the information to criminally investigate or prosecute any alcohol or drug abuse patient.[facility]In the event this information is protected by the Federal Confidentiality of Alcohol and Drug Abuse Patient Records regulations: The Federal rules restrict any use of the information to criminally investigate or prosecute any alcohol or drug abuse patient.[facility]In the event this information is protected by the Federal Confidentiality of Alcohol and Drug Abuse Patient Records regulations: The Federal rules restrict any use of the information to criminally investigate or prosecute any alcohol or drug abuse patient.[facility]In the event this information is protected by the Federal Confidentiality of Alcohol and Drug Abuse Patient Records regulations: The Federal rules restrict any use of the information to criminally investigate or prosecute any alcohol or drug abuse patient.[facility]In the event this information is protected by the Federal Confidentiality of Alcohol and Drug Abuse Patient Records regulations: The Federal rules restrict any use of the information to criminally investigate or prosecute any alcohol or drug abuse patient.[facility] HospitalIn the event this information is protected by the Federal Confidentiality of Alcohol and Drug Abuse Patient Records regulations: The Federal rules restrict any use of the information to criminally investigate or prosecute any alcohol or drug abuse patient.[facility] HospitalIn the event this information is protected by the Federal Confidentiality of Alcohol and Drug Abuse Patient Records regulations: The Federal rules restrict any use of the information to criminally investigate or prosecute any alcohol or drug abuse patient.[facility] HospitalIn the event this information is protected by the Federal Confidentiality of Alcohol and Drug Abuse Patient Records regulations: The Federal rules restrict any use of the information to criminally investigate or prosecute any alcohol or drug abuse patient.[facility] HospitalIn the event this information is protected by the Federal Confidentiality of Alcohol and Drug Abuse Patient Records regulations: The Federal rules restrict any use of the information to criminally investigate or prosecute any alcohol or drug abuse patient.[facility] HospitalIn the event this information is protected by the Federal Confidentiality of Alcohol and Drug Abuse Patient Records regulations: The Federal rules restrict any use of the information to criminally investigate or prosecute any alcohol or drug abuse patient.[facility] HospitalIn the event this information is protected by the Federal Confidentiality of Alcohol and Drug Abuse Patient Records regulations: The Federal rules restrict any use of the information to criminally investigate or prosecute any alcohol or drug abuse patient.[facility] HospitalIn the event this information is protected by the Federal Confidentiality of Alcohol and Drug Abuse Patient Records regulations: The Federal rules restrict any use of the information to criminally investigate or prosecute any alcohol or drug abuse patient.[facility] HospitalIn the event this information is protected by the Federal Confidentiality of Alcohol and Drug Abuse Patient Records regulations: The Federal rules restrict any use of the information to criminally investigate or prosecute any alcohol or drug abuse patient.[facility] HospitalIn the event this information is protected by the Federal Confidentiality of Alcohol and Drug Abuse Patient Records regulations: The Federal rules restrict any use of the information to criminally investigate or prosecute any alcohol or drug abuse patient.[facility] HospitalIn the event this information is protected by the Federal Confidentiality of Alcohol and Drug Abuse Patient Records regulations: The Federal rules restrict any use of the information to criminally investigate or prosecute any alcohol or drug abuse patient.[facility] HospitalIn the event this information is protected by the Federal Confidentiality of Alcohol and Drug Abuse Patient Records regulations: The Federal rules restrict any use of the information to criminally investigate or prosecute any alcohol or drug abuse patient.[facility] HospitalIn the event this information is protected by the Federal Confidentiality of Alcohol and Drug Abuse Patient Records regulations: The Federal rules restrict any use of the information to criminally investigate or prosecute any alcohol or drug abuse patient.[facility] HospitalIn the event this information is protected by the Federal Confidentiality of Alcohol and Drug Abuse Patient Records regulations: The Federal rules restrict any use of the information to criminally investigate or prosecute any alcohol or drug abuse patient.[facility]In the event this information is protected by the Federal Confidentiality of Alcohol and Drug Abuse Patient Records regulations: The Federal rules restrict any use of the information to criminally investigate or prosecute any alcohol or drug abuse patient.[facility] HospitalIn the event this information is protected by the Federal Confidentiality of Alcohol and Drug Abuse Patient Records regulations: The Federal rules restrict any use of the information to criminally investigate or prosecute any alcohol or drug abuse patient.[facility] HospitalIn the event this information is protected by the Federal Confidentiality of Alcohol and Drug Abuse Patient Records regulations: The Federal rules restrict any use of the information to criminally investigate or prosecute any alcohol or drug abuse patient.[facility] HospitalIn the event this information is protected by the Federal Confidentiality of Alcohol and Drug Abuse Patient Records regulations: The Federal rules restrict any use of the information to criminally investigate or prosecute any alcohol or drug abuse patient.[facility] HospitalIn the event this information is protected by the Federal Confidentiality of Alcohol and Drug Abuse Patient Records regulations: The Federal rules restrict any use of the information to criminally investigate or prosecute any alcohol or drug abuse patient.[facility] HospitalIn the event this information is protected by the Federal Confidentiality of Alcohol and Drug Abuse Patient Records regulations: The Federal rules restrict any use of the information to criminally investigate or prosecute any alcohol or drug abuse patient.[facility] HospitalIn the event this information is protected by the Federal Confidentiality of Alcohol and Drug Abuse Patient Records regulations: The Federal rules restrict any use of the information to criminally investigate or prosecute any alcohol or drug abuse patient.[facility] HospitalIn the event this information is protected by the Federal Confidentiality of Alcohol and Drug Abuse Patient Records regulations: The Federal rules restrict any use of the information to criminally investigate or prosecute any alcohol or drug abuse patient.[facility] HospitalIn the event this information is protected by the Federal Confidentiality of Alcohol and Drug Abuse Patient Records regulations: The Federal rules restrict any use of the information to criminally investigate or prosecute any alcohol or drug abuse patient.[facility] HospitalIn the event this information is protected by the Federal Confidentiality of Alcohol and Drug Abuse Patient Records regulations: The Federal rules restrict any use of the information to criminally investigate or prosecute any alcohol or drug abuse patient.[facility] HospitalIn the event this information is protected by the Federal Confidentiality of Alcohol and Drug Abuse Patient Records regulations: The Federal rules restrict any use of the information to criminally investigate or prosecute any alcohol or drug abuse patient.[facility] HospitalIn the event this information is protected by the Federal Confidentiality of Alcohol and Drug Abuse Patient Records regulations: The Federal rules restrict any use of the information to criminally investigate or prosecute any alcohol or drug abuse patient.[facility] HospitalIn the event this information is protected by the Federal Confidentiality of Alcohol and Drug Abuse Patient Records regulations: The Federal rules restrict any use of the information to criminally investigate or prosecute any alcohol or drug abuse patient.[facility] HospitalIn the event this information is protected by the Federal Confidentiality of Alcohol and Drug Abuse Patient Records regulations: The Federal rules restrict any use of the information to criminally investigate or prosecute any alcohol or drug abuse patient.[facility] HospitalIn the event this information is protected by the Federal Confidentiality of Alcohol and Drug Abuse Patient Records regulations: The Federal rules restrict any use of the information to criminally investigate or prosecute any alcohol or drug abuse patient.[facility] HospitalIn the event this information is protected by the Federal Confidentiality of Alcohol and Drug Abuse Patient Records regulations: The Federal rules restrict any use of the information to criminally investigate or prosecute any alcohol or drug abuse patient.[facility]In the event this information is protected by the Federal Confidentiality of Alcohol and Drug Abuse Patient Records regulations: The Federal rules restrict any use of the information to criminally investigate or prosecute any alcohol or drug abuse patient.[facility]In the event this information is protected by the Federal Confidentiality of Alcohol and Drug Abuse Patient Records regulations: The Federal rules restrict any use of the information to criminally investigate or prosecute any alcohol or drug abuse patient.[facility] HospitalIn the event this information is protected by the Federal Confidentiality of Alcohol and Drug Abuse Patient Records regulations: The Federal rules restrict any use of the information to criminally investigate or prosecute any alcohol or drug abuse patient.[facility]In the event this information is protected by the Federal Confidentiality of Alcohol and Drug Abuse Patient Records regulations: The Federal rules restrict any use of the information to criminally investigate or prosecute any alcohol or drug abuse patient.[facility] HospitalIn the event this information is protected by the Federal Confidentiality of Alcohol and Drug Abuse Patient Records regulations: The Federal rules restrict any use of the information to criminally investigate or prosecute any alcohol or drug abuse patient.[facility]In the event this information is protected by the Federal Confidentiality of Alcohol and Drug Abuse Patient Records regulations: The Federal rules restrict any use of the information to criminally investigate or prosecute any alcohol or drug abuse patient.[facility]In the event this information is protected by the Federal Confidentiality of Alcohol and Drug Abuse Patient Records regulations: The Federal rules restrict any use of the information to criminally investigate or prosecute any alcohol or drug abuse patient.[facility]In the event this information is protected by the Federal Confidentiality of Alcohol and Drug Abuse Patient Records regulations: The Federal rules restrict any use of the information to criminally investigate or prosecute any alcohol or drug abuse patient.[facility]In the event this information is protected by the Federal Confidentiality of Alcohol and Drug Abuse Patient Records regulations: The Federal rules restrict any use of the information to criminally investigate or prosecute any alcohol or drug abuse patient.[facility]In the event this information is protected by the Federal Confidentiality of Alcohol and Drug Abuse Patient Records regulations: The Federal rules restrict any use of the information to criminally investigate or prosecute any alcohol or drug abuse patient.[facility]In the event this information is protected by the Federal Confidentiality of Alcohol and Drug Abuse Patient Records regulations: The Federal rules restrict any use of the information to criminally investigate or prosecute any alcohol or drug abuse patient.[facility]In the event this information is protected by the Federal Confidentiality of Alcohol and Drug Abuse Patient Records regulations: The Federal rules restrict any use of the information to criminally investigate or prosecute any alcohol or drug abuse patient.[facility]In the event this information is protected by the Federal Confidentiality of Alcohol and Drug Abuse Patient Records regulations: The Federal rules restrict any use of the information to criminally investigate or prosecute any alcohol or drug abuse patient.[facility]In the event this information is protected by the Federal Confidentiality of Alcohol and Drug Abuse Patient Records regulations: The Federal rules restrict any use of the information to criminally investigate or prosecute any alcohol or drug abuse patient.[facility]In the event this information is protected by the Federal Confidentiality of Alcohol and Drug Abuse Patient Records regulations: The Federal rules restrict any use of the information to criminally investigate or prosecute any alcohol or drug abuse patient.[facility]In the event this information is protected by the Federal Confidentiality of Alcohol and Drug Abuse Patient Records regulations: The Federal rules restrict any use of the information to criminally investigate or prosecute any alcohol or drug abuse patient.[facility]In the event this information is protected by the Federal Confidentiality of Alcohol and Drug Abuse Patient Records regulations: The Federal rules restrict any use of the information to criminally investigate or prosecute any alcohol or drug abuse patient.[facility]In the event this information is protected by the Federal Confidentiality of Alcohol and Drug Abuse Patient Records regulations: The Federal rules restrict any use of the information to criminally investigate or prosecute any alcohol or drug abuse patient.[facility] Care Teams (unrecognized sec tion and content) Entertainer & Comic Relationship Specialty Start Date End Date Celina Dangelo DO PCP - General Family Practice 10/18/14 Uyen Lyons MD, [address], [place] [id number] Physician Radiation Oncology 07/08/19 Shankar Alexander RN Specialty Barrow Worker Helper Oncology 03/21/20 Entertainer & Comic Relationship Specialty Start Date End Date Celina Dangelo DO PCP - General Family Practice 10/18/14 Uyen Lyons MD, [address] [place] [address] Physician Radiation Oncology 07/08/19 Shankar Alexander RN Specialty Barrow Worker Helper Oncology 03/21/20 Entertainer & Comic Relationship Specialty Start Date End Date Celina Dangelo DO PCP - General Family Practice 10/18/14 Uyen Lyons MD, [address] [facility] [address] Physician Radiation Oncology 07/08/19 Shankar Alexander RN Specialty Barrow Worker Helper Oncology 03/21/20 Entertainer & Comic Relationship Specialty Start Date End Date Celina Dangelo DO PCP - General Family Practice 10/18/14 Uyen Lyons MD, [address] [facility] [place] [address] Physician Radiation Oncology 07/08/19 Shankar Alexander RN Specialty Barrow Worker Helper Oncology 03/21/20 Entertainer & Comic Relationship Specialty Start Date End Date Celina Dangelo DO PCP - General Family Practice 10/18/14 Uyen Lyons MD, [address] [place] [address] Physician Radiation Oncology 07/08/19 Shankar Alexander RN Specialty Barrow Worker Helper Oncology 03/21/20 Entertainer & Comic Relationship Specialty Start Date End Date Celina Dangelo PCP - General Family Practice 10/18/14 Uyen Lyons MD, [address] [facility] [place] [address] Physician Radiation Oncology 07/08/19 Shankar Alexander RN Specialty Barrow Worker Helper Oncology 03/21/20 Entertainer & Comic Relationship Specialty Start Date End Date Celina Dangelo DO PCP - General Family Practice 10/18/14 Uyen Lyons MD, [address] [facility] [address] Physician Radiation Oncology 07/08/19 Shankar Alexander RN Specialty Barrow Worker Helper Oncology 03/21/20 Entertainer & Comic Relationship Specialty Start Date End Date Celina Dangelo DO PCP - General Family Practice 10/18/14 Uyen Lyons MD, [address] [facility] [address] Physician Radiation Oncology 07/08/19 Shankar Alexander RN Specialty Barrow Worker Helper Oncology 03/21/20 Entertainer & Comic Relationship Specialty Start Date End Date Celina Dangelo DO PCP - General Family Practice 10/18/14 Uyen Lyons MD, [address] [place] [address] Physician Radiation Oncology 07/08/19 Shankar Alexander RN Specialty Barrow Worker Helper Oncology 03/21/20 Entertainer & Comic Relationship Specialty Start Date End Date Celina Dangelo DO PCP - General Family Practice 10/18/14 Uyen Lyons MD, [address] [facility] [place] [address] Physician Radiation Oncology 07/08/19 Shankar Alexander RN Specialty Barrow Worker Helper Oncology 03/21/20 Entertainer & Comic Relationship Specialty Start Date End Date JohnieradhaNicolasacalvin Simpson PCP - General Family Practice 10/18/14 Uyen Lyons MD, [address] [facility] [place] [place] [address] Physician Radiation Oncology 07/08/19 Shankar Alexander RN Specialty Barrow Worker Helper Oncology 03/21/20 Entertainer & Comic Relationship Specialty Start Date End Date Celina Dangelo DO PCP - General Family Practice 10/18/14 Uyen Lyons MD, [address] [facility] [place] [place] [address] Physician Radiation Oncology 07/08/19 Shankar Alexander RN Specialty Barrow Worker Helper Oncology 03/21/20 Entertainer & Comic Relationship Specialty Start Date End Date Celina Dangelo DO PCP - General Family Practice 10/18/14 Uyen Lyons MD, [address] [place] [address] Physician Radiation Oncology 07/08/19 Shankar Alexander RN Specialty Barrow Worker Helper Oncology 03/21/20 Entertainer & Comic Relationship Specialty Start Date End Date Celina Dangelo DO PCP - General Family Medicine 10/18/14 Uyen Lyons MD, [address] [facility] [place] [address] Physician Radiation Oncology 07/08/19 Shankar Alexander RN Specialty Barrow Worker Helper Oncology 03/21/20 Entertainer & Comic Relationship Specialty Start Date End Date Celina Dangelo DO PCP - General Family Medicine 10/18/14 Uyen Lyons MD, [address] [facility] [place] [address] Physician Radiation Oncology 07/08/19 Shankar Alexander RN Specialty Barrow Worker Helper Oncology 03/21/20 Entertainer & Comic Relationship Specialty Start Date End Date Celina Dangelo PCP - General Family Medicine 10/18/14 Uyen Lyons MD, [address] [facility] [place] [address] Physician Radiation Oncology 07/08/19 Shankar Alexander RN Specialty Barrow Worker Helper Oncology 03/21/20 Entertainer & Comic Relationship Specialty Start Date End Date Celina Dangelo PCP - General Family Medicine 10/18/14 Uyen Lyons MD, [address] [place] [facility] [place] [address] Physician Radiation Oncology 07/08/19 Shankar Alexander RN Specialty Barrow Worker Helper Oncology 03/21/20 Entertainer & Comic Relationship Specialty Start Date End Date Antolin Celina CalvinDO PCP - General Family Medicine 10/18/14 Uyen Lyons MD, [address] [facility] [place] [address] Physician Radiation Oncology 07/08/19 Shankar Alexander RN Specialty Barrow Worker Helper Oncology 03/21/20 Cheko Stanford DO [address] [place] [address] Hematology/Oncology 04/08/22 Entertainer & Comic Relationship Specialty Start Date End Date AntolinCelina DO PCP - General Family Medicine 10/18/14 Uyen Lyons MD, [address] [place] [address] Physician Radiation Oncology 07/08/19 Shankar Alexander RN Specialty Barrow Worker Helper Oncology 03/21/20 Cheko Stanford, DO [address] [place] [address] Hematology/Oncology 04/08/22 Entertainer & Comic Relationship Specialty Start Date End Date Celina DangeloDO PCP - General Family Medicine 10/18/14 Uyen Lyons MD, [address] [place] [address] Physician Radiation Oncology 07/08/19 Shankar Alexander RN Specialty Barrow Worker Helper Oncology 03/21/20 Cheko Stanford, DO [address] [place] [address] Hematology/Oncology 04/08/22 July Estrella LISW [address] [place] [address] Benefit Authorizer Hematology/Oncology 04/25/22 Entertainer & Comic Relationship Specialty Start Date End Date Celina Dangelo DO PCP - General Family Medicine 10/18/14 Uyen Lyons MD, [address] [place] [address] Physician Radiation Oncology 07/08/19 Shankar Alexander RN Specialty Barrow Worker Helper Oncology 03/21/20 Cheko Stanford, DO [address] [place] [address] Hematology/Oncology 04/08/22 July Estrella LISW [address] [place] [address] Benefit Authorizer Hematology/Oncology 04/25/22 Entertainer & Comic Relationship Specialty Start Date End Date Celina Dangelo DO PCP - General Family Medicine 10/18/14 Uyen Lyons MD, [address] [place] [address] Physician Radiation Oncology 07/08/19 Shankar Alexander, RN Specialty Barrow Worker Helper Oncology 03/21/20 Cheko Stanford, DO [address] [place] [address] Hematology/Oncology 04/08/22 July Estrella LISW [address] [place] [address] Benefit Authorizer Hematology/Oncology 04/25/22 Entertainer & Comic Relationship Specialty Start Date End Date Celina Dagnelo DO PCP - General Family Medicine 10/18/14 Uyen Lyons MD, [address] [place] [address] Physician Radiation Oncology 07/08/19 Shankar Alexander RN Specialty Barrow Worker Helper Oncology 03/21/20 Cheko Stanford, DO [address] [place] [address] Hematology/Oncology 04/08/22 July Estrella LISW [address] [place] [address] Benefit Authorizer Hematology/Oncology 04/25/22 Entertainer & Comic Relationship Specialty Start Date End Date Celina Dangelo DO PCP - General Family Medicine 10/18/14 Uyen Lyons MD, [address] [place] [address] Physician Radiation Oncology 07/08/19 Shankar Alexander RN Specialty Barrow Worker Helper Oncology 03/21/20 Cheko Stanford, DO [address] [place] [address] Hematology/Oncology 04/08/22 July Estrella LISW [address] [place] [address] Benefit Authorizer Hematology/Oncology 04/25/22 Entertainer & Comic Relationship Specialty Start Date End Date Celina Dangelo DO PCP - General Family Medicine 10/18/14 Uyen Lyons MD, [address] [place] [address] Physician Radiation Oncology 07/08/19 Shankar Alexander RN Specialty Barrow Worker Helper Oncology 03/21/20 Cheko Stanford, [address] [place] [address] Hematology/Oncology 04/08/22 July Estrella LISW [address] [place] [address] Benefit Authorizer Hematology/Oncology 04/25/22 Entertainer & Comic Relationship Specialty Start Date End Date Celina Dangelo DO PCP - General Family Medicine 10/18/14 Uyen Lyons MD, [address] [place] [address] Physician Radiation Oncology 07/08/19 Shankar Alexander, RN Specialty Barrow Worker Helper Oncology 03/21/20 Cheko Stanford, DO [address] [place] [address] Hematology/Oncology 04/08/22 July Estrella LISW [address] [place] [address] Benefit Authorizer Hematology/Oncology 04/25/22 Entertainer & Comic Relationship Specialty Start Date End Date Celina Dangelo DO PCP - General Family Medicine 10/18/14 Uyen Lyons MD, [address] [place] [address] Physician Radiation Oncology 07/08/19 Shankar Alexander, RN Specialty Barrow Worker Helper Oncology 03/21/20 Cheko Stanford DO [address] [place] [address] Hematology/Oncology 04/08/22 July Estrella LISW [address] [place] [address] Benefit Authorizer Hematology/Oncology 04/25/22 Entertainer & Comic Relationship Specialty Start Date End Date Celina DangeloDO PCP - General Family Medicine 10/18/14 Uyen Lyons MD, [address] [place] [address] Physician Radiation Oncology 07/08/19 Shankar Alexander RN Specialty Barrow Worker Helper Oncology 03/21/20 Cheko Stanford DO [address] [place] [address] Hematology/Oncology 04/08/22 July Estrella LISW [address] [place] [address] Benefit Authorizer Hematology/Oncology 04/25/22 Entertainer & Comic Relationship Specialty Start Date End Date Antolin Celina CalvinDO PCP - General Family Medicine 10/18/14 Uyen Lyons MD, [address] [place] [address] Physician Radiation Oncology 07/08/19 Shankar Alexander RN Specialty Barrow Worker Helper Oncology 03/21/20 Cheko Stanford DO [address] [place] [address] Hematology/Oncology 04/08/22 July Estrella LISW [address] [place] [address] Benefit Authorizer Hematology/Oncology 04/25/22 Entertainer & Comic Relationship Specialty Start Date End Date Celina Dangelo PCP - General Family Medicine 10/18/14 Uyen Lyons MD, [address] [place] [address] Physician Radiation Oncology 07/08/19 Shankar Alexander RN Specialty Barrow Worker Helper Oncology 03/21/20 Cheko Stanford, DO [address] [place] [address] Hematology/Oncology 04/08/22 July Estrella LISW [address] [place] [address] Benefit Authorizer Hematology/Oncology 04/25/22 Entertainer & Comic Relationship Specialty Start Date End Date JohnieradhaNicolasacalvin SimpsonDO PCP - General Family Medicine 10/18/14 Uyen Lyons MD, [address] [place] [address] Physician Radiation Oncology 07/08/19 Shankar Alexander RN Specialty Barrow Worker Helper Oncology 03/21/20 Cheko Stanford, DO [address] [place] [address] Hematology/Oncology 04/08/22 July Estrella LISW [address] [place] [address] Benefit Authorizer Hematology/Oncology 04/25/22 Entertainer & Comic Relationship Specialty Start Date End Date JohnieradhaNicolasacalvin SimpsonDO PCP - General Family Medicine 10/18/14 Uyen Lyons MD, [address] [place] [address] Physician Radiation Oncology 07/08/19 Doup, Shankar, RN Specialty Barrow Worker Helper Oncology 03/21/20 Cheko Stanford DO [address] [place] [address] Hematology/Oncology 04/08/22 July Estrella LISW [address] [place] [address] Benefit Authorizer Hematology/Oncology 04/25/22 Entertainer & Comic Relationship Specialty Start Date End Date JohnieradhaCelina DO PCP - General Family Medicine 10/18/14 yUen Lyons MD, [address] [place] [address] Physician Radiation Oncology 07/08/19 Shankar Alexander RN Specialty Barrow Worker Helper Oncology 03/21/20 Cheko Stanford DO [address] [place] [address] Hematology/Oncology 04/08/22 July Estrella LISW [address] [place] [address] Benefit Authorizer Hematology/Oncology 04/25/22 Entertainer & Comic Relationship Specialty Start Date End Date AntolinCelina DO PCP - General Family Medicine 10/18/14 Uyen Lyons MD, [address] [place] [address] Physician Radiation Oncology 07/08/19 Shankar Alexander RN Specialty Barrow Worker Helper Oncology 03/21/20 Cheko Stanford DO [address] [place] [address] Hematology/Oncology 04/08/22 July Estrella LISW [address] [place] [address] Benefit Authorizer Hematology/Oncology 04/25/22 Entertainer & Comic Relationship Specialty Start Date End Date JohnieradhaNicolasacalvin SimpsonDO PCP - General Family Medicine 10/18/14 Uyen Lyons MD, [address] [place] [address] Physician Radiation Oncology 07/08/19 Shankar Alexander RN Specialty Barrow Worker Helper Oncology 03/21/20 Cheko Stanford DO [address] [place] [address] Hematology/Oncology 04/08/22 July Estrella LISW [address] [place] [address] Benefit Authorizer Hematology/Oncology 04/25/22 Entertainer & Comic Relationship Specialty Start Date End Date Celina Dangelo DO PCP - General Family Medicine 10/18/14 Uyen Lyons MD, [address] [place] [address] Physician Radiation Oncology 07/08/19 Shankar Alexander RN Specialty Barrow Worker Helper Oncology 03/21/20 Cheko Stanford DO [address] [place] [address] Hematology/Oncology 04/08/22 July Estrella LISW [address] [place] [address] Benefit Authorizer Hematology/Oncology 04/25/22 Entertainer & Comic Relationship Specialty Start Date End Date Celina Dangelo DO PCP - General Family Medicine 10/18/14 Uyen Lyons MD, [address] [place] [address] Physician Radiation Oncology 07/08/19 Shankar Alexander RN Specialty Barrow Worker Helper Oncology 03/21/20 Cheko Stanford DO [address] [place] [address] Hematology/Oncology 04/08/22 July Estrella LISW [address] [place] [address] Benefit Authorizer Hematology/Oncology 04/25/22 Bam Hammond [address] [place] [address] Referring Ophthalmology 02/20/23 Entertainer & Comic Relationship Specialty Start Date End Date Celina Dangelo DO PCP - General Family Medicine 10/18/14 Uyen Lyons MD, [address] [place] [address] Physician Radiation Oncology 07/08/19 Shankar Alexander RN Specialty Barrow Worker Helper Oncology 03/21/20 Cheko Stanford DO [address] [place] [address] Hematology/Oncology 04/08/22 July Estrella LISW [address] [place] [address] Benefit Authorizer Hematology/Oncology 04/25/22 Bam Hammond [address] [place] [address] Referring Ophthalmology 02/20/23 Entertainer & Comic Relationship Specialty Start Date End Date Celina Dangelo DO PCP - General Family Medicine 10/18/14 Uyen Lyons MD, [address] [place] [address] Physician Radiation Oncology 07/08/19 Shankar Alexander RN Specialty Barrow Worker Helper Oncology 03/21/20 Cheko Stanford DO [address] [place] [address] Hematology/Oncology 04/08/22 July Estrella LISW [address] [place] [address] Benefit Authorizer Hematology/Oncology 04/25/22 Bam Hammond [address] [place] [address] Referring Ophthalmology 02/20/23 Entertainer & Comic Relationship Specialty Start Date End Date Celina Dangelo DO PCP - General Family Medicine 10/18/14 Uyen Lyons MD, [address] [place] [address] Physician Radiation Oncology 07/08/19 Shankar Alexander RN Specialty Barrow Worker Helper Oncology 03/21/20 Cheko Stanford DO [address] [place] [address] Hematology/Oncology 04/08/22 July Estrella LISW [address] [place] [address] Benefit Authorizer Hematology/Oncology 04/25/22 Bam Hammond MD [address] [place] [address] Referring Ophthalmology 02/20/23 Entertainer & Comic Relationship Specialty Start Date End Date Celina Dangelo DO PCP - General Family Medicine 10/18/14 Uyen Lyons MD, [address] [place] [address] Physician Radiation Oncology 07/08/19 Shankar Alexander, RN Specialty Barrow Worker Helper Oncology 03/21/20 Cheko Stanford DO [address] [place] [address] Hematology/Oncology 04/08/22 July Estrella LISW [address] [place] [address] Benefit Authorizer Hematology/Oncology 04/25/22 Bam Hammond MD [address] [place] [address] Referring Ophthalmology 02/20/23 Entertainer & Comic Relationship Specialty Start Date End Date Celina Dangelo DO PCP - General Family Medicine 10/18/14 Uyen Lyons MD, [address] [place] [address] Physician Radiation Oncology 07/08/19 Shankar Alexander RN Specialty Barrow Worker Helper Oncology 03/21/20 Cheko Stanford DO [address] [place] [address] Hematology/Oncology 04/08/22 Heller, July, [employer] [address] [place] [address] Benefit Authorizer Hematology/Oncology 04/25/22 Entertainer & Comic Relationship Specialty Start Date End Date Celina Dangelo DO PCP - General Family Medicine 10/18/14 Uyen Lyons MD, [address] [place] [address] Physician Radiation Oncology 07/08/19 Shankar Alexander RN Specialty Barrow Worker Helper Oncology 03/21/20 Cheko Stanford DO [address] [place] [address] Hematology/Oncology 04/08/22 July Estrella LISW [address] [place] [address] Benefit Authorizer Hematology/Oncology 04/25/22 Entertainer & Comic Relationship Specialty Start Date End Date Celina Dangelo DO PCP - General Family Medicine 10/18/14 Uyen Lyons MD, [address] [place] [address] Physician Radiation Oncology 07/08/19 Shankar Alexander RN Specialty Barrow Worker Helper Oncology 03/21/20 Cheko Stanford DO [address] [place] [address] Hematology/Oncology 04/08/22 July Estrella LISW [address] [place] [address] Benefit Authorizer Hematology/Oncology 04/25/22 [place] [address] [place] [address] [place] [address] Referring Ophthalmology 02/20/23 Entertainer & Comic Relationship Specialty Start Date End Date Celina Dangelo DO PCP - General Family Medicine 10/18/14 Uyen Lyons MD, MD [address], [place] [address] Physician Radiation Oncology 07/08/19 Shankar Alexander RN Specialty Barrow Worker Helper Oncology 03/21/20 Cheko Stanford DO [address], [place] [id number] Hematology/Oncology 04/08/22 July Estrella LISW [address] [place] [address] Benefit Authorizer Hematology/Oncology 04/25/22 Bam Hammond MD [address] [facility], [place] [id number] Referring Ophthalmology 02/20/23 Reason for Visit (unrecogniz ed section and content) Reason Comments Imm/Inj Specialty Diagnoses / Procedures Referred By Contnichole t Referred To Contact Diagnoses Stage 3 chronic kidney disease, unspecified whether stage 3a or 3b CKD (HCC) Malignant 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, estrogen receptor positive (HCC) Bone metastases (HCC) Cheko Stanford DO [address] [place] [address] [facility] [address] [place] [address] Referral ID Status Reason Start Date Expiration Date V isits Requested Visits Authorized [id number] Authorized 04/06/2020 07/05/2020 1 1 Reason Onset Date Comments Refill Request 10/21/2021 Reason Comments Orders Reason Comments Barrow Worker Helper - Other Discharge Follo w-up Reason Comments Medication Question Reason Comments Follow Up Reason Comments Radiology NM Reason Comments Established Patient Reason Comments Consent [id number] Specialty Diagnoses / Procedures [facility]erred To Contact Diagnoses Stage 3 chronic kidney disease, unspecified whether stage 3a or 3b CKD (HCC) Malignant 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, estrogen receptor positive (HCC) Bone metastases (HCC) Procedures denosumab 120 mg/1.7 mL (70 mg/mL) Cheko Buitrago, DO [address] [place] [address] [facility] [address] [place] [address] Referral ID Status Reason Start Date Expiration Date V isits Requested Visits Authorized [id number] Authorized 04/06/2020 09/19/2021 1 1 Reason Comments Lab Orders Reason Onset Date Comments SPP Oral Oncology/hematology - Treatment Referra l 03/13/2022 [employer] Insurance Authorization 03/13/2022 Pending PA Reason Comments Barrow Worker Helper - Other Oral Anti-Cance r Agents Education Reason Comments Patient Education [employer] oral chemo education & medication reconciliation Reason Comments Patient Education [employer] follo-up or al chemo education & medication reconciliation Reason Comments Reason Comments Opened In Error Reason Comments Barrow Worker Helper - Other Reason Comments Patient Question Reason Comments Established Patient Reason Comments Results X-rays Reason Comments Orders Breast Ultrasound Reason Comments [employer] Approval Reason Comments Follow Up Xgeva Reason Comments Refill Request Specialty Diagnoses / Procedures [facility] Referred To Contact Diagnoses Stage 3 chronic kidney disease, unspecified whether stage 3a or 3b CKD (HCC) Malignant 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, estrogen receptor positive (HCC) Bone metastases Procedures denosumab 120 mg/1.7 mL (70 mg/mL) Cheko Buitrago, DO [address] [place] [address] [facility] [address] [place] [address] Reason Comments Results PET scan Reason Comments [...] WHOLE BODY Cheko Stanford, DO [address] [facility] [place] [address] Molecular & Functional Imaging [address] [place] [address] Referral ID Status Reason Start Date Expiration Date V isits Requested Visits Authorized [id number] Closed Auto-Generate d Referral 07/07/2022 08/06/2023 1 1 Specialty Diagnoses / Procedures Referred By Contac t Referred To Contact MOLECULAR & FUNCTIONAL IMAGING Diagnoses Malignant 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, 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 [employer] provides no warranty or guarantee of the accuracy or completeness of information in this document.
[2023-07-15 15:14] LABS: Protein, Urine (Random) < 6.0 mg/dL (<11.9); Protein:Creat Ratio 76 mg/g CRE (0-200)
[2023-07-15 15:15] LABS: PTHIN 30.8 pg/mL (18.4-80.1)
[2023-07-15 15:16] LABS: Albumin, Serum 3.4 g/dL (3.2-5.0); BUN 23 mg/dL (7-18); BUN/Creat Ratio 12.5 RATIO (10-20); Calcium,Total 10.4 mg/dL (8.5-10.1); Chloride 103 mmol/L (98-107); Creatinine, Serum 1.84 mg/dL (0.55-1.02); EST Glomerular Filtration Rate 28 mL/min (>60); Est Glom Filt Rate - Afr Amer 34 mL/min (>60); Glucose 164 mg/dL (74-106); Sodium Level 137 mmol/L (136-145)
[2023-07-15 15:18] LABS: Vitamin D,25 Hydroxy 51.8 ng/mL
== END | disposition home or self-care (01) ==
LOC: LAB 14:05
PROVIDERS: PCP Family Medicine; Referring Provider Internal Medicine Nephrology; Visit Provider Internal Medicine Nephrology
DX: N18.32 Chronic kidney disease, stage 3b (principal)
CPT/HCPCS: 36415; 80069; 82306; 82570; 83970; 84156; 85027

== ENCOUNTER → 2023-07-16 | Outpatient (CLI) | payer MEDICARE, OTHER, SELFPAY ==
--- NOTE | 2023-07-16 13:37 | BI_ITS ---
MAMMOGRAPHY - UNILATERAL SCREENING: RIGHT BREAST REASON FOR EXAM: Female, 77 years old. Routine annual screening examination (unilateral). PERTINENT HISTORY: Personal history of breast cancer. Prior left mastectomy. Remote right excisional breast biopsy. TECHNIQUE: Digital unilateral breast iván (3D mammographic acquisition) in the CC and MLO projections. 2-D mediolateral oblique (MLO) and craniocaudad (CC) views of both breasts were obtained. CAD: Full Field Digital Mammography with Computer Added Detection was performed. COMPARISON: Comparison is made with prior study dated January 12, 2023 and June 17, 2019. FINDINGS: Breast Composition: The breasts are heterogeneously dense, which may obscure small masses. There are no dominant masses or suspicious calcifications. No other significant abnormalities are identified. There has been no significant change since the prior study. BI/SCREEN MAMM (CAD) W/IVÁN UNI R IMPRESSION: Stable unilateral screening mammogram. Yearly follow-up mammogram recommended. (A) ASSESSMENT CATEGORY: BIRADS Category 1: Negative. A letter regarding these results will be sent to the patient by the facility within 30 days. Approximately 10% of breast cancers are not detected by mammography. A normal mammogram should not delay biopsy of a clinically suspicious abnormality. [id number] Electronically Signed: Kenneth Dominguez MD at 14:55 EST ,
== END | disposition home or self-care (01) ==
LOC: OPBI 13:35
PROVIDERS: PCP Family Medicine; Referring Provider Internal Medicine Hematology & Oncology; Visit Provider Internal Medicine Hematology & Oncology
DX: Z12.31 Encounter for screening mammogram for malignant neoplasm of breast (principal); Z85.3 Personal history of malignant neoplasm of breast; Z90.12 Acquired absence of left breast and nipple
CPT/HCPCS: 77063; 77067

== ENCOUNTER → 2023-12-29 | Outpatient (CLI) | payer MEDICARE, OTHER, SELFPAY ==
[2023-12-29 17:43] LABS: Absolute Lymphocyte Count 1.28 X10^3/uL (0.83-4.51); Absolute Neutrophil Count 2.4 X10^3/uL (2.0-7.7); Basophil# 0.05 X10^3/uL; Basophil% 1.1 % (0-1); Eosinophil# 0.07 X10^3/uL; Eosinophils% 1.6 % (0-5); Hematocrit 32.6 % (37-47); Hemoglobin 10.7 g/dL (12.0-15.0); Lymphocyte # 1.28 X10^3/ul (0.83-4.51); Lymphocyte % 28.8 % (19-41); Mean Corp Hgb Conc 32.8 g/dL (32-36); Mean Corpuscular Hgb 33.4 pg (27.0-32.0); Mean Corpuscular Volume 101.9 fL (81-99); Monocyte% 13.5 % (0-10); NRBC Flagged by Analyzer 0 % (0-5); Neutrophil # 2.43 X10^3/uL (2.7-7.7); Neutrophil % 54.8 % (47-70); Platelet Count 176 K/mm3 (150-450); RBC Distribution Width CV 12.8 % (11.6-14.6); RBC Distribution Width SD 48.2 fl (35.1-43.9); White Blood Count 4.4 K/mm3 (4.4-11.0)
[2023-12-29 17:48] LABS: Protein, Urine (Random) 7.2 mg/dL (<11.9); Protein:Creat Ratio 128 mg/g CRE (0-200)
[2023-12-29 17:56] LABS: Vitamin D,25 Hydroxy 51.5 ng/mL
[2023-12-29 17:58] LABS: Albumin, Serum 3.2 g/dL (3.2-5.0); BUN 20 mg/dL (7-18); BUN/Creat Ratio 11.5 RATIO (10-20); Calcium,Total 9.3 mg/dL (8.5-10.1); Chloride 101 mmol/L (98-107); Creatinine, Serum 1.74 mg/dL (0.55-1.02); EST Glomerular Filtration Rate 30 mL/min (>60); Est Glom Filt Rate - Afr Amer 36 mL/min (>60); Glucose 80 mg/dL (74-106); Phosphorus 2.7 mg/dL (2.5-4.9); Potassium 4.3 mmol/L (3.5-5.1); Sodium Level 138 mmol/L (136-145)
[2023-12-29 18:16] LABS: PTHIN 59.1 pg/mL (18.4-80.1)
[2023-12-29 18:48] LABS: T4 Free Direct 1.09 ng/dL (0.76-1.46); Thyroid Stim Hormone (TSH) 1.03 uIU/mL (0.358-3.74)
== END | disposition home or self-care (01) ==
PROVIDERS: PCP Family Medicine; Referring Provider Internal Medicine Endocrinology, Diabetes & Metabolism; Visit Provider Internal Medicine Endocrinology, Diabetes & Metabolism
DX: I12.9 Hypertensive chronic kidney disease with stage 1 through stage 4 chronic kidney disease, or unspecified chronic kidney disease (principal); N18.32 Chronic kidney disease, stage 3b; E03.8 Other specified hypothyroidism; E06.3 Autoimmune thyroiditis
CPT/HCPCS: 36415; 80069; 82306; 82570; 83970; 84156; 84439; 84443; 85025

== ENCOUNTER → 2024-02-16 | Outpatient (CLI) | payer MEDICARE, OTHER, SELFPAY ==
--- NOTE | 2024-02-16 11:00 | PET_ITS ---
EXAMINATION: FDG-PET/CT ? INDICATIONS: 78-year-old female with a history of malignant neoplasm of the left breast, presenting for restaging examination. ? COMPARISON EXAMINATION: FDG-PET CT study dated 07/14/2023. ? TECHNIQUE: Following the intravenous administration of 15.16 mCi of F-18 deoxyglucose via the right antecubital fossa, multiplanar image acquisitions of the head, neck, chest, abdomen and pelvis to the level of the midthigh, obtained at one-hour post radiopharmaceutical administration contemporaneously interpreted with the current CT of the chest, abdomen and pelvis dated 02/16/2024 and prior FDG-PET CT study dated 07/14/2023 via coregistration reveal: ? SERUM GLUCOSE LEVEL:? 191 mg/dL? HEIGHT:?? 59 inches WEIGHT:?? 133 pounds ? FINDINGS: ? HEAD/NECK:? There is no evidence of abnormal increased glucose metabolism in the pharyngeal mucosal space, parapharyngeal space, oropharynx, bilateral-lateral and anterior neck, hypopharynx and distribution of the larynx. ? The visualized portion of the cerebral cortical-subcortical structures demonstrate symmetric and preserved glucose metabolism. ? CHEST:? There is no quantitative scintigraphic evidence of abnormal increased glucose metabolism within the context of the bilateral hemithorax pulmonary parenchyma, right and left hemithorax at the pleural interface, mediastinal structures, and left-right thoracic perihilum.? Prominent tracer uptake is noted in the descending thoracic aorta commensurate with activated leukocytes associated with atherosclerotic plaque formation. ? CT of the chest demonstrates the following anatomic characteristics: On review of the CT of the chest, there is no definitive interval change compared to the study dated 07/14/2023. ? ABDOMEN/PELVIS:? Normal physiologic distribution of the radiopharmaceutical is identified in the hepatic and splenic parenchyma, both renal units, urinary bladder, and visualized intestinal tract.? Diffuse intestinal tract is identified in all four quadrants of the abdominal-pelvic mesentery. ? CT of the abdomen and pelvis is remarkable for the following: On review of the CT of the abdomen and pelvis, there is no definitive interval change compared to the study dated 07/14/2023. ? SKELETAL:? There is no evidence of quantitatively significant enhanced glucose metabolism on meticulous inspection of the appendicular and axial skeletal structures. ? Degenerative changes defined in the thoracic and lumbar spine demonstrate no evidence of increased glucose metabolism. There are no sclerotic, mixed sclerotic-lytic, or primarily lytic changes defined in the axial skeletal structures with evidence of increased FDG uptake. ? PET/PET/CT Tumor Base -Thigh Subs IMPRESSION: 1.? NEGATIVE EXAMINATION. There is no definitive quantitative scintigraphic evidence of recurrent-metastatic viable neoplasm. 2.? Overall, compared to the prior FDG-PET study dated 07/14/2023, there is current and continued absence of defined viable neoplastic disease. Electronic Signature Alphonso Baird D.O. Accurate Quantification of SUVs for this report are calculated using the exclusive [employer]. ([place].S. Patent No. [phone] [phone] 983 B2 [phone] [place] patent [id number] [id number] [id number]). Standardization and correction of the FDG SUV metric via [employer] technology allow for vendor non-specific objective quantitative examination comparison and optimization of the sensitivity and specificity of the FDG PET-CT examination. [email or web address] Electronically Signed: Alphonso Baird DO at 9:56 EDT ,
== END | disposition home or self-care (01) ==
LOC: ONC 10:40
PROVIDERS: PCP Family Medicine; Referring Provider Internal Medicine Hematology & Oncology; Visit Provider Internal Medicine Hematology & Oncology
DX: C50.812 Malignant neoplasm of overlapping sites of left female breast (principal); C79.51 Secondary malignant neoplasm of bone; Z17.0 Estrogen receptor positive status [ER+]
CPT/HCPCS: 78815; A9552

== ENCOUNTER → 2024-03-09 | Outpatient (CLI) | payer MEDICARE, OTHER, SELFPAY ==
--- NOTE | 2024-03-09 10:48 | US_ITS ---
STUDY: ULTRASOUND BREAST - LEFT REASON FOR EXAM: Female, 78 years old. Tenderness overlying the left mastectomy site. TECHNIQUE: Axial and longitudinal images of the LEFT breast were performed with a high resolution ultrasound transducer. # OF IMAGES: 55 COMPARISON: None. FINDINGS: LEFT Breast: The left mastectomy site was examined with ultrasound. No sonographic abnormality is seen. US/Breast Limited Unilateral IMPRESSION: No sonographic abnormality is seen overlying the left mastectomy site. ASSESSMENT CATEGORY: BIRADS Category 1: Negative. A letter regarding these results will be sent to the patient by the facility within 30 days. Electronically Signed: Kenneth Dominguez MD at 14:53 EDT ,
== END | disposition home or self-care (01) ==
LOC: OPUS 10:46
PROVIDERS: PCP Family Medicine; Referring Provider Nurse Practitioner; Visit Provider Nurse Practitioner
DX: C50.812 Malignant neoplasm of overlapping sites of left female breast (principal); Z17.0 Estrogen receptor positive status [ER+]
CPT/HCPCS: 76642

== ENCOUNTER → 2024-05-05 | Outpatient (CLI) | payer MEDICARE, OTHER, SELFPAY ==
--- NOTE | 2024-05-05 | IMM_PTH ---
PATIENT: BASSAM JAIN LOC: [facility] U#:[id number] AGE/SX: 78/F ROOM: RE05/05/[address]: Dr. Amarilis Fernandez MD : 1945 BED: DIS: 05/05/2024 SPEC #: [id number] RECD: 05/09/24 12:02 STATUS: GINA REQ #: [id number] HENIR: 05/05/24 00:[address]: Amarilis Fernandez DEPT: IMMUNOHISTOCHEMISTRY RECD BY: Felice Rueda ENTERED: 05/09/24 12:03 SP TYPE: IMMUNO OTHR DR: Dr. Celina Dangelo, DO Tissues: Skin of breast, NOS Procedures: SMA (add) CALPONIN-1 (add) CK7 (add) CK8 (add) E-CAD (add) HER2 OUMOU (add) KI-67 (add) P53 (add) HI (add) Pankeratin (add) P40 (add) ER (initial) PHYSICIAN & [address] [address] SPECIMEN INFORMATION: Tissue Source: Skin tissue mastectomy - scar punch biopsy Clinical Info: Left mastectomy scar Specimen Number: [id number] CPT code: 54552,57087h9,16477m3 METHODOLOGY: Deparaffinized sections of prefer/formalin-fixed tissue or PAP/DQ stained slides are incubated with monoclonal/polyclonal antibodies/oligonucleotide probes. Localization is made via biotin free immunoperoxidase method. Appropriate controls are performed and reacted as expected. Results on target cell population are indicated in the following table: RESULTS: ANTIBODY / CLONE RESULT E-Cad (ECH-6) negative AE1-3 (AE1/AE3/PCK26) positive CK7 (OV-TL12/30) positive CK8 (72moifO57) positive Calponin-1 (MU294G) negative Actin (1A4) negative P40 (BC28) negative P53 (DO-7) positive, indeterminate type Ki-67 (30-9) positive, low ER (clone 6F11) positive HI (clone 16/1E2) negative Her-2Neu (clone CB11) negative The prognostic test for HER2 is performed on formalin-fixed paraffin embedded tissue. A 3+ (positive) staining pattern is defined as intense, homogeneous, complete, circumferential membranous staining in >10% of contiguous tumor cells. A similar weak (2+) staining pattern is interpreted as equivocal. EDISON follow-up testing is recommended for all equivocal cases. Positivity/negativity for ER/HI is reported if > or < 1% of the tumor cells are immuno- reactive, respectively. The ASCO/CAP criteria is used for scoring. Reference: Journal of Clinical Oncology, 2013; 31:7532-9994 & 2010; 16:0314-2419. Ischemic time: Less than one hour. Duration of fixation: __ Hrs; Sample Adequate: Yes. These assays have not been validated on decalcified tissues. Results should be interpreted with caution given the likelihood of false negativity on decalcified specimens or fixation greater than 72 hours. Alternative testing methods (FISH/dualISH for Her2; gene expression for ER) are recommended, if applicable. Please notify the laboratory if additional testing is required. These tests were developed and their performance characteristics determined by [facility]. They may not have been cleared or approved by the U.S. Food and Drug Administration. The FDA has determined that such clearance or approval is not necessary. The above immunohistochemical/dualISH markers are ordered and reviewed by the Pathologist. INTERPRETATION: Skin of mastectomy scar, punch biopsy: Invasive lobular carcinoma. AM.mr 05/10/2024
--- NOTE | 2024-05-05 14:37 | LES_PTH ---
PATIENT: BASSAM JAIN LOC: [facility] U#:[id number] AGE/SX: 78/F ROOM: RE05/05/[address]: Dr. Amarilis Fernandez MD : 1945 BED: DIS: 05/05/2024 SPEC #: [id number] RECD: 05/06/24 12:05 STATUS: GINA REQ #: [id number] HENRI: 05/05/24 14:[address]: Amarilis Fernandez DEPT: SURGICAL PATHOLOGY RECD BY: Felice Rueda ENTERED: 05/06/24 12:05 SP TYPE: Lesion OTHR DR: Dr. Celina Dangelo, DO Tissues: Skin of breast, NOS Procedures: Surgery Specimen Level IV HEADER OPERATION: Skin biopsy of left mastectomy scar PRE-OP DIAGNOSIS: Left mastectomy scar TISSUE SUBMITTED: Skin tissue mastectomy scar- punch biopsy MICROSCOPIC DIAGNOSIS Mastectomy skin scar, punch biopsy: Infiltrating lobular carcinoma. See comment. AM 05/09/2024 COMMENT Immunohistochemistry ([id number]) supports the above diagnosis. There is no evidence of Paget's disease. Reference is made to the patient's left breast modified radical mastectomy (S20-199) in which invasive lobular carcinoma was identified. MICROSCOPIC DESCRIPTION Slides are reviewed. GROSS DESCRIPTION Received in fixative is one container labeled with the patient's name and designated Skin tissue . The specimen consists of punch biopsy of couch-white skin measuring 0.5cm in diameter and up to 0.9cm in length. The specimen is bisected and submitted entirely in one cassette. 05/06/2024 TC:0 CPT:72600
== END | disposition home or self-care (01) ==
LOC: LABSPEC 15:00
PROVIDERS: PCP Family Medicine; Referring Provider Surgery; Visit Provider Surgery
DX: C50.912 Malignant neoplasm of unspecified site of left female breast (principal); Z90.12 Acquired absence of left breast and nipple
CPT/HCPCS: 88305; 88341; 88342

== ENCOUNTER → 2024-07-14 | Outpatient (CLI) | payer MEDICARE, OTHER, SELFPAY ==
[2024-07-14 18:36] LABS: Albumin, Serum 3.3 g/dL (3.2-5.0); BUN 23 mg/dL (7-18); BUN/Creat Ratio 10.4 RATIO (10-20); Calcium,Total 10.1 mg/dL (8.5-10.1); Chloride 98 mmol/L (98-107); Creatinine, Serum 2.22 mg/dL (0.55-1.02); EST Glomerular Filtration Rate 23 mL/min (>60); Est Glom Filt Rate - Afr Amer 27 mL/min (>60); Glucose 248 mg/dL (74-106); Phosphorus 3.3 mg/dL (2.5-4.9); Potassium 4.2 mmol/L (3.5-5.1); Sodium Level 132 mmol/L (136-145)
[2024-07-14 18:48] LABS: Hematocrit 30.7 % (37-47); Hemoglobin 10.8 g/dL (12.0-15.0); Mean Corp Hgb Conc 35.2 g/dL (32-36); Mean Corpuscular Hgb 33.1 pg (27.0-32.0); Mean Corpuscular Volume 94.2 fL (81-99); Mean Platelet Vol. 11.8 fl (6.2-12.0); POSITIVE COUNT YES; Platelet Count 96 K/mm3 (150-450); RBC Distribution Width CV 12.7 % (11.6-14.6); RBC Distribution Width SD 43.9 fl (35.1-43.9); Red Blood Count 3.26 M/mm3 (4.2-5.4)
[2024-07-14 19:20] LABS: Protein, Urine (Random) 19.4 mg/dL (<11.9); Protein:Creat Ratio 112 mg/g CRE (0-200)
[2024-07-14 20:39] LABS: Scan Indicated on CBC? Y/N YES- FLAGS NOTED
== END | disposition home or self-care (01) ==
LOC: MTLAB 14:43
PROVIDERS: PCP Family Medicine; Referring Provider Internal Medicine Nephrology; Visit Provider Internal Medicine Nephrology
DX: N18.32 Chronic kidney disease, stage 3b (principal)
CPT/HCPCS: 36415; 80069; 82570; 84156; 85027

== ENCOUNTER → 2024-07-25 | Outpatient (CLI) | payer MEDICARE, OTHER, SELFPAY ==
--- NOTE | 2024-07-25 14:05 | BI_ITS ---
PROCEDURE: SCREEN MAMM (CAD) W/IVÁN UNI R REASON FOR EXAM: F, Age 78 y/o, history of personal breast cancer. Left mastectomy. TECHNIQUE: Unilateral right screening digital breast tomosynthesis with 2D and 3D images. Computer aided detection. COMPARISON: Prior exam(s) dating back to July 16, 2023.. FINDINGS: The breasts are heterogeneously dense which may obscure small masses. No suspicious masses, areas of developing architectural distortion, or suspicious calcifications. BI/SCREEN MAMM (CAD) W/IVÁN UNI R IMPRESSION: BI-RADS 1: NEGATIVE. RECOMMEND ANNUAL MAMMOGRAPHIC SCREENING. Follow-up code: Routine Follow-up The patient will be notified of the results by letter. Reading Location: [id number]
== END | disposition home or self-care (01) ==
LOC: OPBI 14:04
PROVIDERS: PCP Family Medicine; Referring Provider Nurse Practitioner; Visit Provider Nurse Practitioner
DX: Z12.31 Encounter for screening mammogram for malignant neoplasm of breast (principal); Z85.3 Personal history of malignant neoplasm of breast; Z90.12 Acquired absence of left breast and nipple
CPT/HCPCS: 77063; 77067

== ENCOUNTER → 2024-07-27 | Outpatient (CLI) | payer MEDICARE, OTHER, SELFPAY ==
--- NOTE | 2024-07-27 14:35 | RAD_ITS ---
EXAM: XR Left Knee Complete, 4 or More Views CLINICAL INDICATION: TECHNIQUE: Four or more views of the left knee. COMPARISON: No relevant prior studies available. FINDINGS: BONES/JOINTS: See below. SOFT TISSUES: Soft tissue swelling without acute fracture. RAD/Knee 4 or More Views IMPRESSION: 1. Soft tissue swelling without acute fracture. 2. If symptoms persist, repeat radiograph in 7-10 days recommended. Reading [facility]
--- NOTE | 2024-07-27 14:35 | RAD_ITS ---
EXAM: XR Lumbosacral Spine, 2 or 3 Views CLINICAL INDICATION: TECHNIQUE: Frontal and lateral views of the lumbar spine and sacrum. COMPARISON: No relevant prior studies available. FINDINGS: VERTEBRAE: Multilevel facet arthropathy of L4-S1. No acute fracture. Normal alignment. SACRUM/COCCYX: Unremarkable as visualized. No acute fracture. DISC SPACES: No acute findings. No significant narrowing. SOFT TISSUES: Unremarkable. GASTROINTESTINAL TRACT: Fecal retention in the colon consistent with constipation. RAD/L/S Spine Min 4 Views IMPRESSION: 1. Fecal retention in the colon consistent with constipation. 2. Degenerative changes as above. Reading Location: [facility]
== END | disposition home or self-care (01) ==
LOC: MTRAD 14:34
PROVIDERS: PCP Family Medicine; Referring Provider Nurse Practitioner Family; Visit Provider Nurse Practitioner Family
DX: M25.562 Pain in left knee (principal); M53.3 Sacrococcygeal disorders, not elsewhere classified; Z91.81 History of falling
CPT/HCPCS: 72110; 73564

== ENCOUNTER 2024-08-13 20:02 | Inpatient (IN) | payer MEDICARE, OTHER, SELFPAY ==
[2024-08-13 20:04] VITALS: BP 134/64; PULSE 80; RESP 18; TEMP 36.7; O2SAT 99
[2024-08-13 20:06] VITALS: BMI 28.4
[2024-08-13 20:44] VITALS: BP 139/54; PULSE 74; RESP 17; O2SAT 95
--- NOTE | 2024-08-13 21:08 | EKG12_ITS ---
Test Reason : SOB Blood Pressure : */* mmHG Vent. Rate : 73 BPM Atrial Rate : 73 BPM P-R Int : 180 ms QRS Dur : 90 ms QT Int : 392 ms P-R-T Axes : 48 12 30 degrees QTcB Int : 431 ms Normal sinus rhythm with sinus arrhythmia Normal ECG Confirmed by Puneet Wilder ([id number]), editor newspaper RICKIE BROWN ([id number]) on 08/15/2024 6:53:18 AM Referred By: Confirmed By: Puneet Wilder
--- NOTE | 2024-08-13 21:14 | EDS_ITS ---
HPI <Dr. Divya Stratton DO - Last Filed: 08/16/24 06:12> History of Present Illness Chief Complaint: Shortness of Breath Informant: patient Narrative Narrative: Patient is an 79-year-old female with history of type 1 diabetes mellitus, hyp ertension, CKD and breast cancer (follows Dr. Stanford and currently on oral chemotherapy). She is presenting today with 2 weeks of generalized malaise and fatigue and new shortness of breath. she states that her last dose of chemotherapy was 3 days ago (on Thursday). She notes that this evening she felt dizzy as if she was going to pass out. She states last night she did have an episode of coughing. She felt short of breath tonight walking down the hallway which is new for her. She does state that last night she woke up and overnight and felt like she needed more oxygen. She put an extra pillow under her head which helped her feel better. She also notes that for the past 3 weeks has been having an itchy rash on her arms, chest and back as well as her ears. She is been prescribed triamcinolone cream for this. Her oncologist is aware. She has not eaten anything today has had decreased appetite. Denies any fevers. Denies any history of CHF, swelling of her legs, DVT/PE and is on any blood thinners. Denies any fevers. Denies any GI or symptoms. No other complaints or concerns at this time [facility] <Dr. 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 Metastatic breast cancer Breast cancer, left Type 1 diabetes mellitus Diabetes mellitus Estrogen receptor positive status (ER+) Disproportion of reconstructed breast Acquired absence of left breast and nipple Breast ptosis Breast asymmetry Inversion of left nipple Invasive lobular carcinoma of left breast in female Vision problems Osteoporosis Osteoarthritis Kidney disease Hearing problem Cataracts, bilateral Back problem Hyperlipidemia Essential (primary) hypertension Facet arthropathy, lumbar Segmental and somatic dysfunction of pelvic region Segmental and somatic dysfunction of lumbar region Hyperthyroidism Environmental allergies Acute renal failure Arthritis Home Medications ?Medication ?Instructions ?Recorded ?Last Taken ?Type calcium 600 mg (as 2 cap PO BID 06/12/22 Unknow n History carbonate)-vitamin D3 12.5 mcg (500 unit) capsule (Calcium with Vit D3) denosumab 60 mg/mL subcutaneous 60 mg subcut [id number] osteoporosis 06/12/22 Unknown History syringe (Prolia) ranolazine 500 mg tablet,extended 500 mg PO DAILY #90 tabs 09/10/23 Unknown Rx release,12 hr cyanocobalamin (vitamin B-12) 1,000 mcg IM QMONTH 12/14 11/05 Unknown History 1,000 mcg/mL injection solution simvastatin 10 mg tablet See Rx Instructions .Route 0 01/07/24 Unknown Rx .COMPLEX #90 TABLETS insulin aspart U-100 100 unit/mL 100 unit subcut DAILY diabetes #90 04/04/24 Unknown Rx subcutaneous solution (Novolog mL U-100 Insulin aspart) levothyroxine 50 mcg tablet 50 mcg PO DAILY #90 tabs 1 Unknown Rx metoprolol succinate 100 mg 100 mg PO DAILY for blood pressure 06/22/24 Unknown Rx tablet,extended release 24 hr #90 TABLETS dexamethasone 0.5 mg/5 mL oral mg PO 07/04/24 Unknown History solution Held on 08/13/24. Instructions: on hold everolimus (antineoplastic) 10 mg mg PO 07/04/24 Unkno wn History tablet Held on 08/13/24. Instructions: on hold exemestane 25 mg tablet 25 mg PO DAILY 07/04/24 Unkn own History amlodipine 5 mg tablet 5 mg PO DAILY 08/13/24 Unkno wn History Allergy/AdvReac Type Severity Reaction Status Date / Time codeine AdvReac Vomiting Verified 08/13/24 20:03 hydrocodone AdvReac Vomiting Verified 08/13/24 20:03 meperidine (From Demerol) AdvReac Vomiting Verified 08/13/24 20:03 Family History Father Myocardial infarction <55 Heart disease Hypertension High cholesterol Mother Osteoporosis Skin cancer Surgical History History of modified radical mastectomy of left breast (08/05/19) History of left breast biopsy (06/2019) Status post right breast biopsy History of left heart catheterization (10/30/06) History of tubal ligation Social History Smoking Status: Never smoker alcohol intake: current alcohol intake frequency: holidays/special occasions only substance use type: does not use caffeine: Yes Type: coffee Number of servings: 2 additional social history: DOES USE ASPIRIN DOES NOT USE IBUPROFEN ROS <Dr. Divya Stratton DO - Last Filed: 08/16/24 06:12> ROS ED Constitutional Constitutional ED: Reports other Details: Fatigue, anorexia ; Denies chills or fever(s) Eyes Eyes: Denies change in vision ENT ENT ED: Reports other Details: Sinus congestion present ; Denies sore throat Cardiovascular Cardiovascular: Denies chest pain or palpitations Respiratory/Chest Respiratory/Chest: Reports cough, dyspnea and dyspnea on exertion; Denies sputum Gastrointestinal Gastrointestinal: Denies abdominal pain, diarrhea, nausea or vomiting Genitourinary Genitourinary ED: Reports other Details: Reports decreased urination ; Denies dysuria or urinary frequency Musculoskeletal Musculoskeletal: Denies arthralgias or myalgias Integumentary Reports rash Neurologic Neurologic: Reports weakness; Denies headache(s) or paresthesias Hematologic/Lymphatic Hematologic/Lymphatic: Denies easy bleeding or easy bruising EXAM <Dr. Divya Stratton DO - Last Filed: 08/16/24 06:12> Physical Exam Const Vital Signs: 08/13/24 20:04 08/13/24 20:08 08/13/24 20:44 Temperature 98.1 F Temperature Source Oral Pulse Rate 80 74 Respiratory Rate 18 17 Respiratory Effort Normal Non-Labored Blood Pressure 134/64 H 139/54 H Blood Pressure Mean 87 82 Pulse Ox 99 95 Oxygen Delivery Method Room Air Room Air 08/13/24 22:56 08/14/24 00:00 08/14/24 01:43 Temperature 98.2 F Temperature Source Oral Pulse Rate 76 77 80 Respiratory Rate 18 18 16 Respiratory Effort Blood Pressure 128/50 H 144/57 H 142/66 H Blood Pressure Mean 76 86 91 Pulse Ox 94 98 97 Oxygen Delivery Method Room Air Room Air Room Air 08/14/24 01:44 Temperature 98.2 F Temperature Source Pulse Rate 81 Respiratory Rate 16 Respiratory Effort Blood Pressure 142/66 H Blood Pressure Mean 91 Pulse Ox 97 Oxygen Delivery Method Positive well nourished and well developed General Appearance ED: well developed HEENT HEENT Narrative: Mildly dry mucosal membranes Eyes PERRL Neck supple, no meningeal signs and no JVD Resp normal respiratory effort and clear to auscultation bilaterally Auscultation: Negative for rales, rhonchi or wheezes Cardio regular rate, regular rhythm and no murmurs GI non-tender and non-distended Auscultation: normoactive bowel sounds Palpation: soft Back/Spine no CVA tenderness Extremity Extremity Narrative: Shows that patient had 2+ radial DP pulses present General Extremety ED: Negative for edema General Extremity: Negative for edema Neuro oriented x3 Neuro Narrative: Moves all extremities Sensorium / Orientation: alert Speech: speech normal Motor Exam: Negative for general weakness Psych mental status grossly normal Skin Skin Narrative: Diffuse micropapular rash on the extremities, upper chest, neck and back. On the back there is a lot of dry skin. No blistering or bullae present. Nontender to palpation. Patient reports they are pruritic. No associated warmth. No petechia appreciated. <Dr. Steven Vásquez MD - Last Filed: 08/14/24 01:51> Physical Exam Const Vital Signs: 08/13/24 20:04 08/13/24 20:08 08/13/24 20:44 Temperature 98.1 F Temperature Source Oral Pulse Rate 80 74 Respiratory Rate 18 17 Respiratory Effort Normal Non-Labored Blood Pressure 134/64 H 139/54 H Blood Pressure Mean 87 82 Pulse Ox 99 95 Oxygen Delivery Method Room Air Room Air 08/13/24 22:56 08/14/24 00:00 08/14/24 01:43 Temperature 98.2 F Temperature Source Oral Pulse Rate 76 77 80 Respiratory Rate 18 18 16 Respiratory Effort Blood Pressure 128/50 H 144/57 H 142/66 H Blood Pressure Mean 76 86 91 Pulse Ox 94 98 97 Oxygen Delivery Method Room Air Room Air Room Air 08/14/24 01:44 Temperature 98.2 F Temperature Source Pulse Rate 81 Respiratory Rate 16 Respiratory Effort Blood Pressure 142/66 H Blood Pressure Mean 91 Pulse Ox 97 Oxygen Delivery Method [facility] <Dr. Divya Stratton, DO - Last Filed: 08/16/24 06:12> MDM MDM Narrative Medical decision making narrative: Patient evaluated for 2 weeks of fatigue with decreased appetite and now shortness of breath. States this feels most similar to when she had pneumonia about 2 years ago. Past medical history includes diabetes, hypertension and breast cancer for which she is on oral chemotherapy. Vital signs normal at this time. Room in the room she is 100% on room air. Differential includes pneumonia, pleural effusion, ACS, symptomatic anemia, THOMAS, electrolyte abnormality, viral syndrome, new onset CHF and PE. CBC largely normal with no leukocytosis or left shift. She has a mild anemia with a hemoglobin 11.2 which appears stable and at baseline. CMP shows CKD with creatinine of 1.72 which is her baseline. D-dimer significantly elevated at 2.96. Chest x-ray reviewed by myself does not show any acute infiltrate to explain her symptoms. Waiting on formal read. Will add on CTA given the significantly elevated D-dimer and concern for PE. Patient is given IV fluids due to her CKD and as she will be receiving IV contrast. Patient's case signed out oncoming physician pending final disposition. Lab Data Labs: Laboratory Results - last 24 hr 08/13/24 08/13/24 08/13/24 21:20 21:20 21:20 WBC 5.8 RBC 3.58 L Hgb 11.2 L Hct 33.3 L MCV 93.0 MCH 31.3 MCHC 33.6 RDW Std Deviation 47.0 H RDW Coeff of Alex 13.8 Plt Count 180 MPV 10.8 D-Dimer Quant (PE/DVT) Sodium 136 Potassium 3.7 Chloride Direct 96 Carbon Dioxide 27.1 Anion Gap 13 BUN 21 H Creatinine 1.72 H Estim Creat Clear Calc 21.75 L Est GFR (MDRD) Non-Af 30 L BUN/Creatinine Ratio 12.1 Glucose 168 H Lactic Acid 1.2 Calcium 9.9 Total Bilirubin 0.48 AST 32 ALT 39 H Alkaline Phosphatase 64 Troponin T High Sens Cancelled 29 H Troponin T Hi Sens 2 Hr Cancelled Troponin T Hi Sens 2Hr Delta Cancelled NT pro BNP II 515 Total Protein 5.6 L Albumin 3.4 Globulin 2.2 Albumin/Globulin Ratio 1.5 TSH Cancelled 1.810 Urine Color Urine Clarity Urine pH Ur Specific [place] Urine Protein Urine Glucose (UA) Urine Ketones Urine Occult Blood Urine Nitrite Urine Bilirubin Urine Urobilinogen Ur Leukocyte Esterase Urine RBC Urine WBC Ur Squamous Epith Cells Amorphous Sediment Urine Bacteria Urine Mucus 08/13/24 08/13/24 08/13/24 21:39 22:30 23:25 WBC RBC Hgb Hct MCV MCH MCHC RDW Std Deviation RDW Coeff of Alex Plt Count MPV D-Dimer Quant (PE/DVT) 2.96 H* Sodium Potassium Chloride Direct Carbon Dioxide Anion Gap BUN Creatinine Estim Creat Clear Calc Est GFR (MDRD) Non-Af BUN/Creatinine Ratio Glucose Lactic Acid Calcium Total Bilirubin AST ALT Alkaline Phosphatase Troponin T High Sens Troponin T Hi Sens 2 Hr 27 H Troponin T Hi Sens 2Hr Delta 2 NT pro BNP II Total Protein Albumin Globulin Albumin/Globulin Ratio TSH Urine Color Yellow Urine Clarity Sl. Cloudy Urine pH 6.0 Ur Specific [place] 1.025 Urine Protein 30 H Urine Glucose (UA) 100 H Urine Ketones 15 H Urine Occult Blood Negative Urine Nitrite Negative Urine Bilirubin Negative Urine Urobilinogen Normal Ur Leukocyte Esterase 500 H Urine RBC 0 SEEN Urine WBC 10-25 SEEN Ur Squamous Epith Cells 0-5 SEEN Amorphous Sediment 1+ URATE Urine Bacteria 0 SEEN Urine Mucus 0 SEEN Radiography Diagnostic Testing: Clinical Impression(s) from Imaging Studies Chest X-Ray 08/13/24 21:28 IMPRESSION: Senescent changes. No acute cardiopulmonary process detected Reading Location: [facility] Chest CTA 08/13/24 22:10 IMPRESSION: No evidence of pulmonary embolism. Bronchial thickening. Scattered tree-in-bud type nodules seen. Query mild pneumonitis or pneumonia. Small left pleural effusion. Multiple sclerotic foci seen throughout the ribs as well as thoracic spine. Osseous metastatic disease should be considered if not previously diagnosed Reading Location: [facility] Rhythm Strip Rhythm Strip: Sinus Rhythm Rate: 73 Ectopy: None EKG Initial EKG: Attestation: I personally reviewed and interpreted this EKG as follows: Interpretation: Sinus Rhythm Comments: Normal sinus rhythm at a rate of 73 bpm with sinus arrhythmia Normal axis Normal intervals No ST segment <Dr. Steven Vásquez MD - Last Filed: 08/14/24 01:51> [facility] Lab Data Labs: Laboratory Results - last 24 hr 08/13/24 08/13/24 08/13/24 21:20 21:20 21:20 WBC 5.8 RBC 3.58 L Hgb 11.2 L Hct 33.3 L MCV 93.0 MCH 31.3 MCHC 33.6 RDW Std Deviation 47.0 H RDW Coeff of Alex 13.8 Plt Count 180 MPV 10.8 D-Dimer Quant (PE/DVT) Sodium 136 Potassium 3.7 Chloride Direct 96 Carbon Dioxide 27.1 Anion Gap 13 BUN 21 H Creatinine 1.72 H Estim Creat Clear Calc 21.75 L Est GFR (MDRD) Non-Af 30 L BUN/Creatinine Ratio 12.1 Glucose 168 H Lactic Acid 1.2 Calcium 9.9 Total Bilirubin 0.48 AST 32 ALT 39 H Alkaline Phosphatase 64 Troponin T High Sens Cancelled 29 H Troponin T Hi Sens 2 Hr Cancelled Troponin T Hi Sens 2Hr Delta Cancelled NT pro BNP II 515 Total Protein 5.6 L Albumin 3.4 Globulin 2.2 Albumin/Globulin Ratio 1.5 TSH Cancelled 1.810 Urine Color Urine Clarity Urine pH Ur Specific [place] Urine Protein Urine Glucose (UA) Urine Ketones Urine Occult Blood Urine Nitrite Urine Bilirubin Urine Urobilinogen Ur Leukocyte Esterase Urine RBC Urine WBC Ur Squamous Epith Cells Amorphous Sediment Urine Bacteria Urine Mucus 08/13/24 08/13/24 08/13/24 21:39 22:30 23:25 WBC RBC Hgb Hct MCV MCH MCHC RDW Std Deviation RDW Coeff of Alex Plt Count MPV D-Dimer Quant (PE/DVT) 2.96 H* Sodium Potassium Chloride Direct Carbon Dioxide Anion Gap BUN Creatinine Estim Creat Clear Calc Est GFR (MDRD) Non-Af BUN/Creatinine Ratio Glucose Lactic Acid Calcium Total Bilirubin AST ALT Alkaline Phosphatase Troponin T High Sens Troponin T Hi Sens 2 Hr 27 H Troponin T Hi Sens 2Hr Delta 2 NT pro BNP II Total Protein Albumin Globulin Albumin/Globulin Ratio TSH Urine Color Yellow Urine Clarity Sl. Cloudy Urine pH 6.0 Ur Specific [place] 1.025 Urine Protein 30 H Urine Glucose (UA) 100 H Urine Ketones 15 H Urine Occult Blood Negative Urine Nitrite Negative Urine Bilirubin Negative Urine Urobilinogen Normal Ur Leukocyte Esterase 500 H Urine RBC 0 SEEN Urine WBC 10-25 SEEN Ur Squamous Epith Cells 0-5 SEEN Amorphous Sediment 1+ URATE Urine Bacteria 0 SEEN Urine Mucus 0 SEEN Radiography Diagnostic Testing: Clinical Impression(s) from Imaging Studies Chest X-Ray 08/13/24 21:28 IMPRESSION: Senescent changes. No acute cardiopulmonary process detected Reading Location: [facility] Chest CTA 08/13/24 22:10 IMPRESSION: No evidence of pulmonary embolism. Bronchial thickening. Scattered tree-in-bud type nodules seen. Query mild pneumonitis or pneumonia. Small left pleural effusion. Multiple sclerotic foci seen throughout the ribs as well as thoracic spine. Osseous metastatic disease should be considered if not previously diagnosed Reading Location: [facility] Management Discussion w/another healthcare provider: Hospitalist Treatment and Re-Evaluation Comments:: Patient checked out to me. She underwent CTA of the chest, I reviewed the images and report which I agree with. Negative for PE, but multiple tree-in-bud abnormalities, per radiology possibly infectious. Patient states she has been feeling extremely weak to the point where she is having trouble getting around. Nursing tried to ambulate her to see if she became hypoxic, they were only able to get to the door, she was no lower than 94%, but she was so weak that she could not continue and was very shaky and afraid she was can to fall so nursing got her back into the bed immediately. She lives alone. There is no family in the area. She went to stand the hospital because she is so weak. I am going to treat her empirically for infectious etiologies here. She is not septic. Discussed with hospitalist for floor admission. Additionally her viral swab returned negative, raising the possibility of this being bacterial in etiology although she does not have a significant leukocytosis arguing against that. Her second troponin is trending down a little, in context of a normal EKG arguing against acute coronary syndrome/subendocardial ischemia. Her chronic renal sufficiency is a little better right now. Discharge Plan Dx/Rx/DC Orders Clinical Impression: Fatigue, Dyspnea, Acute respiratory insufficiency, Acute lower respiratory tract infection Disposition Disposition: Acute Care Hospital [facility] Discharge Date/Time: 08/14/24 02:54
--- NOTE | 2024-08-13 21:28 | RAD_ITS ---
PROCEDURE: CHEST PA AND LATERAL REASON FOR EXAM: Weakness breast cancer TECHNIQUE: Frontal and lateral views of the chest. COMPARISON: 2021 FINDINGS: Demineralized bones. Pectus deformity Bronchial thickening. No localizing infiltrate, effusion or pneumothorax. Stable heart size and mediastinum RAD/Chest PA and Lateral IMPRESSION: Senescent changes. No acute cardiopulmonary process detected Reading Location: [id number]
[2024-08-13 21:55] LABS: Hematocrit 33.3 % (37-47); Hemoglobin 11.2 g/dL (12.0-15.0); Mean Corp Hgb Conc 33.6 g/dL (32-36); Mean Corpuscular Hgb 31.3 pg (27.0-32.0); Mean Platelet Vol. 10.8 fl (6.2-12.0); Platelet Count 180 K/mm3 (150-450); RBC Distribution Width CV 13.8 % (11.6-14.6); Red Blood Count 3.58 M/mm3 (4.2-5.4); White Blood Count 5.8 K/mm3 (4.4-11.0)
[2024-08-13 22:04] LABS: D-Dimer Quantitative (DVT/PE) 2.96 FEU/ug/m (0.27-0.49)
[2024-08-13 22:07] LABS: ALB/GLOB Ratio 1.5 RATIO (0.9-2.4); AST(SGOT) 32 U/L (<=31); Alanine Aminotransfer ALT/SGPT 39 U/L (<=34); Albumin, Serum 3.4 g/dL (3.4-4.8); Alkaline Phosphatase 64 U/L (35-104); Anion Gap 13 (5-15); BUN 21 mg/dL (4-19); BUN/Creat Ratio 12.1 RATIO (10-20); Calcium 9.9 mg/dL (7.6-11.0); Carbon Dioxide 27.1 mmol/L (22.0-29.0); Chloride 96 mmol/L (96-108); Creatinine, Serum 1.72 mg/dL (0.70-1.20); EST Glomerular Filtration Rate 30 (>60); Estimated Creatinine Clearance 21.75 ml/min (50-250); Globulin 2.2 g/dL (2.2-4.2); Glucose 168 mg/dL (70-99); Lactic Acid 1.2 mmol/L (0.0-2.0); Potassium 3.7 mmol/L (3.3-5.1); Pro- Brain NATRIURETIC PEPTIDE 515 pg/mL (<=1800); Protein, Total 5.6 g/dL (5.9-8.4); Sodium Level 136 mmol/L (133-145); Total Bilirubin 0.48 mg/dL (0.00-1.30)
--- NOTE | 2024-08-13 22:10 | CT_ITS ---
PROCEDURE: CTA CHEST W/WO CONTRAST TECHNIQUE: CTA imaging of the chest with intravenous contrast. 3D reconstructions. Standard CT PE protocol performed COMPARISON: None. FINDINGS: Hardware: None. Lymph nodes: No mediastinal hilar or axillary lymphadenopathy. Heart: Normal heart size. No pericardial effusion. Trace coronary calcification Thoracic Aorta: No thoracic aortic aneurysm or dissection. Pulmonary Vessels: No evidence of acute pulmonary emboli through the major subsegmental branches. Most Proximal Level of Embolus (if embolus present): N/A Lungs and Airways: Bronchial thickening. There is evidence of patchy right basilar, left basilar as well as right upper lobe nodular airspace opacities. Decreased mild. For query mild pneumonia no consolidation. Small left pleural effusion Pleura: No pleural effusion. No pneumothorax. Upper Abdomen: Visualized portions of the upper abdominal viscera are unremarkable. Bones: Pectus deformity. Sclerosis of T1 and T2 as well as a punctate focus of T4 sclerosis.. Multiple rib sclerotic foci noted. T9 reference also noted. CT/CTA Chest W/WO Contrast IMPRESSION: No evidence of pulmonary embolism. Bronchial thickening. Scattered tree-in-bud type nodules seen. Query mild pne umonitis or pneumonia. Small left pleural effusion. Multiple sclerotic foci seen throughout the ribs as well as thoracic spine. Os seous metastatic disease should be considered if not previously diagnosed Reading Location: [id number]
[2024-08-13 22:46] LABS: Bacteria 0 SEEN /hpf (None Seen); Mucous, Urine 0 SEEN /hpf (<or=2+)
[2024-08-13] MEDS: 0.9% Normal Saline (1000mL) 1,000 ML 150 ML IV (22:55)
[2024-08-13 22:56] VITALS: BP 128/50; PULSE 76; RESP 18; O2SAT 94
[2024-08-13 23:00] LABS: Color, Urine Yellow (Yellow); Glucose, Dipstick 100 mg/dl (Normal); Ketone-Dipstick 15 mg/dl (Negative); Leukocyte Esterase-Dipstick 500 /ul (Negative); Nitrite-Dipstick Negative (Negative); Occult Blood-Urine Negative /ul (Negative); Protein-Dipstick 30 mg/dl (Negative); Specific Gravity, Urine 1.025 (1.002-1.030); Urine Bilirubin Dipstick Negative (Negative); Urine Clarity Sl. Cloudy (Clear); Urine Urobilinogen Normal (Normal)
[2024-08-13 23:24] LABS: Amorphous Sediment 1+ URATE; Red Blood Cells-Urine 0 SEEN /hpf (0-5); Squamous Epithelial Cells - UA 0-5 SEEN /hpf (5-10); White Blood Cells 10-25 SEEN /hpf (0-5)
[2024-08-13 23:52] LABS: Troponin T High Sensitivity 29 ng/L (<=14)
[2024-08-14] VITALS (10 sets, daily range): BP systolic 115–152; BP diastolic 48–75; PULSE 71–87; RESP 15–18; TEMP 36.6–37.2; O2SAT 96–99; BMI 27.1; BMI 27.3
[2024-08-14 01:18] LABS: TROPONIN VARIANCE 2 HR 2; Troponin T High Sens 2 HR 27 ng/L (<=14)
[2024-08-14] MEDS: Azithromycin 250 MG Tablet 500 MG PO (02:00)
[2024-08-14] MEDS: Ceftriaxone 1 GM/50 ML BAG IV ×2 (02:00→22:02)
--- NOTE | 2024-08-14 02:00 | PCM.HP.STD ---
[facility] - General General Date of Admission: 08/14/24 Date of Service: 08/14/24 Chief Complaint: SOB, Fatigue and Malaise. 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 Stanford of oncology, history of thrombocytopenia, CAD; on ranolazine, CKD; stage IIIb, history of bilateral cataracts, osteoporosis; on Os-Tanner plus D and denosumab, history of trochanteric bursitis of the Left hip, history of iliotibial band syndrome affecting Left lower extremity plus OA; with paresthesia and pain of her lower extremity with chronic back pain who presents to [facility] ER complaining of shortness of breath, fatigue and malaise. Ms. Cisneros reports her symptoms began shortly after her last dose of chemotherapy ~3 days ago with dyspnea on exertion complicated by feeling of dizziness and near syncope with exertion. She admits to associated nonproductive cough and itchy rash covering her arms, chest and back as well as her ears for the past ~3 weeks; for which she was prescribed triamcinolone cream. She also admits to sinus congestion and sharply decreased appetite as she has not eaten anything in the past day with additionally noted decreased urinary output. She denies associated fever, chills, abdominal pain, nausea, vomiting, diarrhea, constipation, dysuria, hematuria, chest pain or changes in vision. In the ER she was noted to have CXR positive for bronchial thickening with no acute localizing infiltrate, effusion or pneumothorax stable heart size and mediastinum but she was noted to have an elevated D-dimer 2.96 present on admission subsequent CTA of the chest with IV contrast revealing no evidence of pulmonary emboli with bronchial thickening and scattered [id number] type nodule seen suspicious for pneumonia with a small left pleural effusion in addition to multiple sclerotic foci seen throughout the ribs as well as thoracic spine consistent with osseous metastatic disease. She was also noted to have evidence of Acute Respiratory Insufficiency after she failed to ambulate more than 6 feet in the ER before becoming hypoxic in addition to UA positive for Acute Cystitis; without hematuria complicated by clinical evidence of Generalized Weakness with Ambulatory Dysfunction and she was then admitted to the general medical floor for ongoing care for stay that is expected to extend beyond 2 midnights. [facility] Medical History Diabetes type 1, controlled Paresthesia and pain of extremity Iliotibial band syndrome affecting left lower leg Trochanteric bursitis, left hip Degenerative arthritis of hip Facet arthritis of lumbar region Segmental and somatic dysfunction of thoracic region Back pain Bone metastases Hypothyroidism due to Zuleika's thyroiditis Insulin pump titration Presence of insulin pump Diabetic polyneuropathy associated with type 1 diabetes mellitus Metastatic breast cancer Breast cancer, left Type 1 diabetes mellitus Diabetes mellitus Estrogen receptor positive status (ER+) Disproportion of reconstructed breast Acquired absence of left breast and nipple Breast ptosis Breast asymmetry Inversion of left nipple Invasive lobular carcinoma of left breast in female Vision problems Osteoporosis Osteoarthritis Kidney disease Hearing problem Cataracts, bilateral Back problem Hyperlipidemia Essential (primary) hypertension Facet arthropathy, lumbar Segmental and somatic dysfunction of pelvic region Segmental and somatic dysfunction of lumbar region Hyperthyroidism Environmental allergies Acute renal failure Arthritis Home Medications ?Medication ?Instructions ?Recorded ?Last Taken ?Type calcium 600 mg (as 2 cap PO BID 06/12/22 Unknown History carbonate)-vitamin D3 12.5 mcg (500 unit) capsule (Calcium with Vit D3) denosumab 60 mg/mL subcutaneous 60 mg subcut [id number] osteoporosis 06/12/22 Unknown History syringe (Prolia) ranolazine 500 mg tablet,extended 500 mg PO DAILY #90 tabs 09/10/23 Unknown Rx release,12 hr cyanocobalamin (vitamin B-12) 1,000 mcg IM QMONTH 01/07/24 Unknown History 1,000 mcg/mL injection solution simvastatin 10 mg tablet See Rx Instructions .Route 01/07/24 Unknown Rx .COMPLEX #90 TABLETS insulin aspart U-100 100 unit/mL 100 unit subcut DAILY diabetes #90 04/04/24 Unknown Rx subcutaneous solution (Novolog mL U-100 Insulin aspart) levothyroxine 50 mcg tablet 50 mcg PO DAILY #90 tabs 04/05/24 Unknown Rx metoprolol succinate 100 mg 100 mg PO DAILY for blood pressure 06/22/24 Unknown Rx tablet,extended release 24 hr #90 TABLETS dexamethasone 0.5 mg/5 mL oral mg PO 07/04/24 Unknown History solution Held on 08/13/24. Instructions: on hold everolimus (antineoplastic) 10 mg mg PO 07/04/24 Unknown History tablet Held on 08/13/24. Instructions: on hold exemestane 25 mg tablet 25 mg PO DAILY 07/04/24 Unknown History amlodipine 5 mg tablet 5 mg PO DAILY 08/13/24 Unknown History Allergy/AdvReac Type Severity Reaction Status Date / Time codeine AdvReac Vomiting Verified 08/13/24 20:03 hydrocodone AdvReac Vomiting Verified 08/13/24 20:03 meperidine (From Demerol) AdvReac Vomiting Verified 08/13/24 20:03 Family History Father Myocardial infarction <55 Heart disease Hypertension High cholesterol Mother Osteoporosis Skin cancer Surgical History History of modified radical mastectomy of left breast (08/05/19) History of left breast biopsy (06/2019) Status post right breast biopsy History of left heart catheterization (10/30/06) History of tubal ligation Social History Smoking Status: Never smoker alcohol intake: current alcohol intake frequency: holidays/special occasions only substance use type: does not use caffeine: Yes Type: coffee Number of servings: 2 additional social history: DOES USE ASPIRIN DOES NOT USE IBUPROFEN ROS ROS Narrative Review of Systems: Constitutional: Patient admits to severe malaise and fatigue but she denies fever or chills. Eyes: Patient denies changes in vision or discharge from eye. ENT: Patient admits to sinus congestion but she denies sore throat or ear pain. Resp: Patient admits to dyspnea on exertion that has now progressed to shortness of breath at rest with nonproductive cough as per HPI. CV: Patient denies chest pain, palpitations, heart racing or lower extremity edema. GI: Patient denies abdominal pain, nausea, vomiting, diarrhea or constipation. : Patient admits to decreased urination but she denies dysuria or urinary frequency. MSK: Patient denies arthralgias or myalgias. Skin: Patient admits to generalized rash on trunk arms and both ears as per HPI but she abscess wound, abscess or jaundice. Psych: Patient denies symptoms of uncontrolled depression or anxiety. Neuro: Patient admits to difficult ambulation with generalized weakness but denies headache or paresthesias. Allergy: Patient denies lip swelling, tongue swelling or urticaria. Hematology: Patient denies easy bleeding or easy bruisability. Endocrinology: Patient denies polyuria, polydipsia or polyphagia. 14 point review of systems otherwise negative except for positives noted above in HPI Vital Signs Vital Signs Vital Signs: 08/13/24 20:04 08/13/24 20:08 08/13/24 20:44 Temperature 98.1 F Temperature Source Oral Pulse Rate 80 74 Respiratory Rate 18 17 Respiratory Effort Normal Non-Labored Blood Pressure 134/64 H 139/54 H Blood Pressure Mean 87 82 Pulse Ox 99 95 Oxygen Delivery Method Room Air Room Air 08/13/24 22:56 08/14/24 00:00 08/14/24 01:43 Temperature 98.2 F Temperature Source Oral Pulse Rate 76 77 80 Respiratory Rate 18 18 16 Respiratory Effort Blood Pressure 128/50 H 144/57 H 142/66 H Blood Pressure Mean 76 86 91 Pulse Ox 94 98 97 Oxygen Delivery Method Room Air Room Air Room Air 08/14/24 01:44 Temperature 98.2 F Temperature Source Pulse Rate 81 Respiratory Rate 16 Respiratory Effort Blood Pressure 142/66 H Blood Pressure Mean 91 Pulse Ox 97 Oxygen Delivery Method Weight Weight: 140 lb 10.479 oz Body Mass Index (BMI) 28.4 Physical Exam Const alert, oriented x3 and average body habitus Constitutional Narrative: Patient appears uncomfortable with mildly labored respirations and chronically ill appearance. General Appearance: cooperative HEENT normocephalic, head/scalp atraumatic and hearing grossly normal bilaterally HEENT Narrative: Mucous membranes dry. Eyes PERRL, EOMs intact bilaterally and conjunctivae normal Neck no lymphadenopathy, supple and no JVD Resp Resp Narrative: Diminished breath sounds throughout. Cardio regular rate and regular rhythm GI normal to inspection, nondistended, normoactive bowel sounds, soft to palpation, non-tender and non-distended Extremity normal to inspection, full ROM and no clubbing, cyanosis or edema Skin Skin Narrative: Patient has diffuse maculopapular rash on trunk and extremities in addition to both ears in the setting of chronic dry skin with no tenderness to palpation with patient reporting associated pruritus. Neuro oriented x3, CN's II-XII intact bilaterally, moves all extremities and no focal motor deficits Sensorium / Orientation: awake, alert, oriented to person, oriented to place and oriented to time Speech: speech normal Psych affect normal Results Medical Records Data Attestation: I reviewed the patient's medical records Lab / Micro Data Attestation: I reviewed the patient's lab results. 08/14/24 05:26 08/14/24 05:26 Labs: Laboratory Results - last 24 hr 08/13/24 21:20: WBC 5.8, RBC 3.58 L, Hgb 11.2 L, Hct 33.3 L, MCV 93.0, MCH 31.3, MCHC 33.6, RDW Std Deviation 47.0 H, RDW Coeff of Alex 13.8, Plt Count 180, MPV 10.8, Sodium 136, Potassium 3.7, Chloride Direct 96, Carbon Dioxide 27.1, Anion Gap 13, BUN 21 H, Creatinine 1.72 H, Estim Creat Clear Calc 21.75 L, Est GFR (MDRD) Non-Af 30 L, BUN/Creatinine Ratio 12.1, Glucose 168 H, Lactic Acid 1.2, Calcium 9.9, Total Bilirubin 0.48, AST 32, ALT 39 H, Alkaline Phosphatase 64, Troponin T High Sens Cancelled 08/13/24 21:20: Troponin T High Sens 29 H, Troponin T Hi Sens 2 Hr Cancelled, Troponin T Hi Sens 2Hr Delta Cancelled, NT pro BNP II 515, Total Protein 5.6 L, Albumin 3.4, Globulin 2.2, Albumin/Globulin Ratio 1.5, TSH Cancelled 08/13/24 21:20: TSH 1.810 08/13/24 21:39: D-Dimer Quant (PE/DVT) 2.96 H* 08/13/24 22:30: Urine Color Yellow, Urine Clarity Sl. Cloudy, Urine pH 6.0, Ur Specific [place] 1.025, Urine Protein 30 H, Urine Glucose (UA) 100 H, Urine Ketones 15 H, Urine Occult Blood Negative, Urine Nitrite Negative, Urine Bilirubin Negative, Urine Urobilinogen Normal, Ur Leukocyte Esterase 500 H, Urine RBC 0 SEEN, Urine WBC 10-25 SEEN, Ur Squamous Epith Cells 0-5 SEEN, Amorphous Sediment 1+ URATE, Urine Bacteria 0 SEEN, Urine Mucus 0 SEEN 08/13/24 23:25: Troponin T Hi Sens 2 Hr 27 H, Troponin T Hi Sens 2Hr Delta 2 Micro: Microbiology 08/13/24 21:23 Mucosa - Nose SARS-CoV-2, Influenza & RSV (PCR) - Final Rhythm Strip Rhythm Strip: Sinus Rhythm Rate: 73 Ectopy: None Imaging Radiology Impression Chest X-Ray 08/13/24 21:28 IMPRESSION: Senescent changes. No acute cardiopulmonary process detected Reading Location: [facility] Chest CTA 08/13/24 22:10 IMPRESSION: No evidence of pulmonary embolism. Bronchial thickening. Scattered tree-in-bud type nodules seen. Query mild pneumonitis or pneumonia. Small left pleural effusion. Multiple sclerotic foci seen throughout the ribs as well as thoracic spine. Osseous metastatic disease should be considered if not previously diagnosed Reading Location: [facility] Assessment & Plan Assessment/Plan (1) Pneumonia: QUALIFIERS: Laterality: unspecified laterality Lung location: unspecified part of lung Pneumonia type: due to unspecified organism Qualified Code(s): J18.9 - Pneumonia, unspecified organism (2) D-dimer, elevated: (3) Acute respiratory insufficiency: (4) Acute cystitis without hematuria: (5) Breast cancer metastasized to multiple sites: QUALIFIERS: Laterality: left Qualified Code(s): C50.912 - Malignant neoplasm of unspecified site of left female breast (6) Estrogen receptor positive status (ER+): (7) Generalized weakness: (8) Ambulatory dysfunction: (9) Overweight (BMI 25.0-29.9): PLAN: Plan 1. CTA of the chest with IV contrast revealing no evidence of pulmonary emboli with bronchial thickening and scattered [id number] type nodule seen suspicious for Pneumonia with a small Left pleural effusion in the setting of elevated D-dimer of 2.96 present on admission - Admit to general medical floor with telemetric monitoring. Continue empiric IV ceftriaxone and IV azithromycin and await culture and sensitivity data. Check urinary antigens to Streptococcus pneumonia and Legionella. Give guaifenesin 600 mg p.o. twice daily. Give acetaminophen as needed for [id number]-rgwolmoo (level 1-5/10) pain or fever. Give morphine IV as needed for severe (level 6-10/10) pain. Finally, we will check lower extremity Doppler to evaluate for possible DVT given patient's numerous risk factors including impaired mobility. 2. Acute Respiratory Insufficiency due to #1 - Wean supplemental oxygen as tolerated. 3. UA positive for Acute Cystitis; without hematuria complicating #1 & #2 - Continue IV ceftriaxone and await culture and sensitivity data. 4. History of ER+ Breast Cancer with invasive lobular carcinoma of the Left breast with metastases to bone; s/p Left radical mastectomy on oral chemotherapy with exemestane, everolimus and dexamethasone followed by Dr. Stanford of oncology with CTA of chest this admission revealing multiple sclerotic foci seen throughout the ribs as well as thoracic spine consistent with osseous metastatic disease adding to the medical complexity of #1 - #3 - Noted. Maintain current regimen with the patient now only on everolimus as exemestane and dexamethasone have already been held. 5. Generalized Weakness with Ambulatory Dysfunction attributable to #1 - #4 - PT/OT and Case Management to consult and treat on-rounds in the AM for further recommendations with help appreciated in advance. 6. Overweight; with BMI of 28.4 this admission adding to the burden of disease outlined from #1 - #5 - Weight loss will be recommended. 7. Essential Hypertension; on amlodipine and metoprolol - Resume current therapy. 8. Hyperlipidemia; on simvastatin - Hold statin due to possible myotoxicity contributing to #5. If musculoskeletal symptoms markedly improve off this agent consider restarting an alternative agent. 9. History of Zuleika's thyroiditis with subsequent hypothyroidism; on levothyroxine - Continue levothyroxine and check TSH. 10. Overweight; with BMI of 28.4 this admission - Weight loss will be recommended. 11. 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 AC/HS plus SSI. Check HgbA1c to objectively evaluate quality of diabetic control. 12. History of thrombocytopenia - Stable with platelet count of 180K present on admission. 13. CAD; on ranolazine - Resume ranolazine as before. 14. CKD; stage IIIb - Stable with serum creatinine of 1.72 mg/dL and BUN of 21 mg/dL with estimated GFR of 30 mL/min which is close to her baseline. 15. History of bilateral cataracts - Noted. 16. Osteoporosis; on Os-Tanner plus D and denosumab - Continue oral Os-Tanner plus D but hold denosumab. 17. History of trochanteric bursitis of the Left hip - Noted. 18. History of iliotibial band syndrome affecting Left lower extremity - Noted. 19. OA; with paresthesia and pain of her lower extremity with chronic back pain - Give acetaminophen prn according to pain scale outlined in #1. 20. DVT/GI prophylaxis - Lovenox 30 mg sq daily. Pantoprazole 40 mg PO daily. Total time: Approximately (but not less than) 75 minutes. Charges/Coding Visit Charges Inpatient E&M: 04902 Init Hosp L3
[2024-08-14 02:15] LABS: TROPONIN VARIANCE 4 HR 1; Troponin T High Sens 4 HR 30 ng/L (<=14)
[2024-08-14 03:53] LABS: Magnesium 1.2 mg/dL (1.5-2.2)
--- NOTE | 2024-08-14 03:55 | VDLE_ITS ---
Reason For Study Reason For Study: Elevated D Dimer RIGHT LEFT GSV is normal. GSV is normal. CFV is compressible, spontaneous, phasic, competent CFV is compressible, spontaneous, phasic, competent, and demonstrates normal augmentation. and demonstrates normal augmentation. FV is compressible, spontaneous, phasic, competent FV is compressible, spontaneous, phasic, competent and demonstrates normal augmentation. and demonstrates normal augmentation. POP V is compressible, spontaneous, phasic, competent POP V is compressible, spontaneous, phasic, competent and demonstrates normal augmentation. and demonstrates normal augmentation. T/P Trunk is compressible. T/P Trunk is compressible. PTV is compressible. PTV is compressible. RT PerV is compressible. LT PerV is compressible. Procedure This is a venous duplex using B-mode, color flow and spectral Doppler. Exam performed portable in patient room. The exam was diagnostic. A preliminary report was called and/or faxed to Tracey Can/Mando 3 RN. VL/Venous Duplex US - Augsto Extrem Interpretation Summary Deep veins of the bilateral lower extremities are patent and compressible segme ntally. There is no evidence of bilateral lower extremity deep vein thrombosis. The bilateral great saphenous veins appea r patent and compressible segmentally. Ordering Physician: Keon Reyes Referring Physician: Celina Dangelo Performed By: Hiren Lopez, RVT
[2024-08-14 05:47] LABS: Absolute Lymphocyte Count 0.59 X10^3/uL (0.83-4.51); Absolute Neutrophil Count 3.8 X10^3/uL (2.0-7.7); Basophil# 0.03 X10^3/uL; Basophil% 0.5 % (0-1); Eosinophil# 0.51 X10^3/uL; Hematocrit 28.6 % (37-47); Hemoglobin 9.7 g/dL (12.0-15.0); Lymphocyte # 0.59 X10^3/ul (0.83-4.51); Lymphocyte % 10.4 % (19-41); Mean Corp Hgb Conc 33.9 g/dL (32-36); Mean Corpuscular Hgb 31.4 pg (27.0-32.0); Mean Corpuscular Volume 92.6 fL (81-99); Mean Platelet Vol. 10.1 fl (6.2-12.0); Monocyte# 0.61 X10^3/uL; Monocyte% 10.8 % (0-10); NRBC Flagged by Analyzer 0.4 % (0-5); Neutrophil % 67.4 % (47-70); POSITIVE DIFFERENTIAL YES; Platelet Count 151 K/mm3 (150-450); RBC Distribution Width CV 13.9 % (11.6-14.6); RBC Distribution Width SD 46.5 fl (35.1-43.9); Red Blood Count 3.09 M/mm3 (4.2-5.4); White Blood Count 5.7 K/mm3 (4.4-11.0)
[2024-08-14 06:20] LABS: ALB/GLOB Ratio 1.6 RATIO (0.9-2.4); AST(SGOT) 27 U/L (<=31); Alanine Aminotransfer ALT/SGPT 31 U/L (<=34); Albumin, Serum 2.9 g/dL (3.4-4.8); Alkaline Phosphatase 50 U/L (35-104); Anion Gap 12 (5-15); BUN 19 mg/dL (4-19); BUN/Creat Ratio 11.8 RATIO (10-20); Calcium 8.9 mg/dL (7.6-11.0); Carbon Dioxide 25.9 mmol/L (22.0-29.0); Chloride 99 mmol/L (96-108); EST Glomerular Filtration Rate 32 (>60); Estimated Creatinine Clearance 22.87 ml/min (50-250); Globulin 1.8 g/dL (2.2-4.2); Glucose 73 mg/dL (70-99); Phosphorus 2.6 mg/dL (2.7-4.5); Potassium 3.3 mmol/L (3.3-5.1); Protein, Total 4.7 g/dL (5.9-8.4); Sodium Level 137 mmol/L (133-145)
[2024-08-14] MEDS: Levothyroxine 50 MCG Tablet PO (06:40)
[2024-08-14] MEDS: Enoxaparin 30 MG/0.3 ML Syringe SC (06:40)
[2024-08-14] MEDS: 0.9% Normal Saline (1000mL) 1,000 ML 70 ML IV (06:41)
[2024-08-14 07:13] LABS: Hemoglobin A1c 8.3 % (<=5.6)
[2024-08-14 07:49] LABS: Bedside Glucose 120 mg/dL (74-106)
[2024-08-14] MEDS: Zinc Sulfate 50 mg zinc (220 mg) ORAL capsule PO (09:11)
[2024-08-14] MEDS: Calcium Carb/Vitamin D 1 TABLET Tablet PO (09:11)
[2024-08-14] MEDS: Ascorbic Acid 500 MG Tablet 1000 MG PO (09:11)
[2024-08-14] MEDS: guaiFENesin 600 MG Tablet PO ×2 (09:12→22:05)
[2024-08-14] MEDS: Pantoprazole Sodium 20 MG Tablet PO (09:12)
--- NOTE | 2024-08-14 11:28 | PN.HOSP_ITS ---
Reason for Visit Reason for Visit: Diagnoses Malignant neoplasm of unspecified site of left female breast (08/14/24) Overweight (08/14/24) Pneumonia, unspecified organism (08/14/24) Acute cystitis without hematuria (08/14/24) Other abnormalities of breathing (08/14/24) Difficulty in walking, not elsewhere classified (08/14/24) Weakness (08/14/24) Other specified abnormal findings of blood chemistry (08/14/24) Estrogen receptor positive status [ER+] (08/14/24) Objective Data Objective Data Vital Signs: Vital Signs Temp Pulse Resp BP Pulse Ox O2 Del Method 97.8 F 79 16 115/57 L 98 Room Air 08/14/24 09:11 08/14/24 09:11 08/14/24 09:11 08/14/24 09:11 08/14/24 09:11 08/14/24 09:11 Oxygen Delivery Method Room Air Weight: 135 lb 12.876 oz Body Mass Index (BMI) 27.3 Intake & Output: Intake and Output for Last 24 Hours 08/12/24 08/13/24 08/14/24 23:59 23:59 23:59 Intake Total 1050 / 1050 Balance 1050 / 1050 Lab / Micro Data 08/14/24 05:26 08/14/24 05:26 Labs: Laboratory Results - last 24 hr 08/13/24 21:20: WBC 5.8, RBC 3.58 L, Hgb 11.2 L, Hct 33.3 L, MCV 93.0, MCH 31.3, MCHC 33.6, RDW Std Deviation 47.0 H, RDW Coeff of Alex 13.8, Plt Count 180, MPV 10.8, Sodium 136, Potassium 3.7, Chloride Direct 96, Carbon Dioxide 27.1, Anion Gap 13, BUN 21 H, Creatinine 1.72 H, Estim Creat Clear Calc 21.75 L, Est GFR (MDRD) Non-Af 30 L, BUN/Creatinine Ratio 12.1, Glucose 168 H, Lactic Acid 1.2, Calcium 9.9, Total Bilirubin 0.48, AST 32, ALT 39 H, Alkaline Phosphatase 64, Troponin T High Sens Cancelled 08/13/24 21:20: Troponin T High Sens 29 H, Troponin T Hi Sens 2 Hr Cancelled, Troponin T Hi Sens 2Hr Delta Cancelled, NT pro BNP II 515, Total Protein 5.6 L, Albumin 3.4, Globulin 2.2, Albumin/Globulin Ratio 1.5, TSH Cancelled 08/13/24 21:20: TSH 1.810 08/13/24 21:39: D-Dimer Quant (PE/DVT) 2.96 H* 08/13/24 22:30: Urine Color Yellow, Urine Clarity Sl. Cloudy, Urine pH 6.0, Ur Specific [place] 1.025, Urine Protein 30 H, Urine Glucose (UA) 100 H, Urine Ketones 15 H, Urine Occult Blood Negative, Urine Nitrite Negative, Urine Bilirubin Negative, Urine Urobilinogen Normal, Ur Leukocyte Esterase 500 H, Urine RBC 0 SEEN, Urine WBC 10-25 SEEN, Ur Squamous Epith Cells 0-5 SEEN, Amorphous Sediment 1+ URATE, Urine Bacteria 0 SEEN, Urine Mucus 0 SEEN 08/13/24 23:25: Troponin T Hi Sens 2 Hr 27 H, Troponin T Hi Sens 2Hr Delta 2 08/14/24 01:50: Magnesium 1.2 L, Troponin T Hi Sens 4Hr 30 H, Troponin T Hi Sens 4Hr Delta 1 08/14/24 05:26: WBC 5.7, RBC 3.09 L, Hgb 9.7 L, Hct 28.6 L, MCV 92.6, MCH 31.4, MCHC 33.9, RDW Std Deviation 46.5 H, RDW Coeff of Alex 13.9, Plt Count 151, MPV 10.1, Immature Gran % (Auto) 1.900 H, Neut % (Auto) 67.4, Lymph % (Auto) 10.4 L, Bath % (Auto) 10.8 H, Eos % (Auto) 9.0 H, Baso % (Auto) 0.5, Absolute Neuts (auto) 3.8, Absolute Lymphs (auto) 0.59 L, Nucleated RBC % 0.4, Sodium 137, Potassium 3.3, Chloride Direct 99, Carbon Dioxide 25.9, Anion Gap 12, BUN 19, C reatinine 1.60 H, Estim Creat Clear Calc 22.87 L, Est GFR (MDRD) Non-Af 32 L, BUN/Creatinine Ratio 11.8, Glucose 73, Hemoglobin A1c 8.3, Calcium 8.9, P hosphorus 2.6 L, Total Bilirubin 0.30, AST 27, ALT 31, Alkaline Phosphatase 50, Total Protein 4.7 L, Albumin 2.9 L, Globulin 1.8 L, Albumin/Globulin Ratio 1.6, TSH 1.410 08/14/24 07:31: POC Glucose 120 H Micro: Microbiology 08/13/24 21:23 Mucosa - Nose SARS-CoV-2, Influenza & RSV (PCR) - Final Radiography Diagnostic Testing: Radiology Impression Chest X-Ray 08/13/24 21:28 IMPRESSION: Senescent changes. No acute cardiopulmonary process detected Reading Location: [facility] Chest CTA 08/13/24 22:10 IMPRESSION: No evidence of pulmonary embolism. Bronchial thickening. Scattered tree-in-bud type nodules seen. Query mild pneumonitis or pneumonia. Small left pleural effusion. Multiple sclerotic foci seen throughout the ribs as well as thoracic spine. Osseous metastatic disease should be considered if not previously diagnosed Reading Location: [facility] Rhythm Strip Rhythm Strip: Sinus Rhythm Rate: 73 Ectopy: None Physical Exam Narrative Seen and examined. History of left breast cancer on Avastin, last dose on past Thursday about 4 days ago. Admitted with generalized weakness, and itching and mild shortness of breath. Occasional mild cough. Physical exam General: Alert, Oriented x3, Cooperative HEENT: Atraumatic, PERRLA, EOMI, Normocephalic Oral: No Gingival or Mucosal Lesions/ Ulcerations Neck: Supple, No JVD, Negative Carotid Bruits Chest wall/Lungs: Air entry diminished in bilateral lung bases. No crepitation/rhonchi Cardiovascular: Regular rate, Regular Rhythm, Normal S1, Normal S2, No M/G/R Abdomen: Bowel Sounds Present, Soft, Non Tender, Non-Distended : No dysuria. No renal angle tenderness. No suprapubic tenderness. Extremities: Generalized edema of upper extremity and lower legs, right leg, more than left arm., Capillary Refill Less than 3 Seconds Skin: Dry and rough skin. Sandpaperlike maculopapular rash over lower back, upper arms and right leg. No active bleeding but high risk of bleeding. Musculoskeletal: No Tenderness to Palpation of Joints or Extremities. ROM restricted Neurological: Cranial nerves II-XII grossly intact, DTR 2+/4. No acute focal neurological deficit. Psych/Mental Status: Flat affect Assessment & Plan Assessment/Plan (1) Pneumonia: QUALIFIERS: Laterality: unspecified laterality Lung location: u nspecified part of lung Pneumonia type: due to unspecified organism Qualified Code(s): J18.9 - Pneumonia, unspecified organism (2) D-dimer, elevated: (3) Acute respiratory insufficiency: (4) Acute cystitis without hematuria: (5) Breast cancer metastasized to multiple sites: QUALIFIERS: Laterality: left Qualified Code(s): C50.912 - Malignant neoplasm of unspecified site of left female breast (6) Estrogen receptor positive status (ER+): (7) Generalized weakness: (8) Ambulatory dysfunction: (9) Overweight (BMI 25.0-29.9): PLAN: Plan 79-year-old female was admitted with generalized weakness for 2 weeks, rash on arms, chest and back and ears and mild shortness of breath on the day of admission. No fever. Last chemotherapy was 3 days ago before admission on past Thursday. Was feeling dizzy feeling like near passout sensation would not pass out. She had an episode of cough. 1. Atypical pneumonia: Patient is being admitted MedSurg floor. CTA chest does not show pulmonary embolism but bronchial thickening and scattered [id number] type nodule seen suspicious for Pneumonia with a small Left pleural effusion:- Admit to general medical floor with telemetric monitoring. D-dimer elevated probably acute phase reactant. On IV antibiotics ceftriaxone and azithromycin. Guaifenesin. Venous duplex lower extremity also ordered. Denies acute lower urinary tract symptoms including increased frequency urgency/dysuria. Patient has chronic increased frequency with bathroom every 3- 4 hours. UA shows WBC 10-25 cells, LE 500 but negative nitrite. 0 bacteria. 2. 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 Stanford of oncology with CTA of chest this admission revealing multiple sclerotic foci seen throughout the ribs as well as thoracic spine consistent with osseous metastatic disease: Maintain current regimen with the patient now only on everolimus as exemestane and dexamethasone have already been held. Diffuse maculopapular rash with dry and thin skin: Eucerin skin emollient ordered. Probably skin toxicity from chemotherapy. 3. Generalized Weakness-continue PT/OT and Case Managemen for discharge 4. Zuleika's thyroiditis and hypothyroidism: On levothyroxine. TSH normal 1.41. 5. Hypertension, dyslipidemia and overweight: Patient BMI 28.4 kg/m? on admission. 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 Blood pressure is controlled. Continue home medication. 6. 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 AC/HS plus SSI. A1c 8.3% 7. History of thrombocytopenia - Stable with platelet count of 180K present on admission. Most patient 1 50,000. 8. CAD; on ranolazine - Resume ranolazine as before. 9. CKD stage 4-creatinine 1.7 to on admission, slight improvement 1.60. Patient creatinine was 2.22 in July 14, 2024 10. Osteoporosis and osteoarthritis and paresthesia of lower extremity chronic back pain: PT and OT ordered DVT/GI prophylaxis - Lovenox 30 mg sq daily. On PPI Charges/Coding Visit Charges Inpatient E&M: 18659 Subs Hosp L2
[2024-08-14 11:49] LABS: Bedside Glucose 187 mg/dL (74-106)
[2024-08-14] MEDS: Petrolatum 33% Tube 1 APPLIC TOPICAL ×2 (16:38→22:30)
[2024-08-14 17:02] LABS: Bedside Glucose 127 mg/dL (74-106)
[2024-08-14] MEDS: Azithromycin 500 MG in 0.9% Normal Saline (250mL Bag) 250 ML 255 MG IV (23:10)
[2024-08-14 23:13] LABS: Bedside Glucose 197 mg/dL (74-106)
[2024-08-15] VITALS (7 sets, daily range): BP systolic 121–141; BP diastolic 48–64; PULSE 84–88; RESP 15–16; TEMP 36.6–37.6; O2SAT 95–100
[2024-08-15] MEDS: Enoxaparin 30 MG/0.3 ML Syringe SC (05:34)
[2024-08-15] MEDS: Levothyroxine 50 MCG Tablet PO (05:34)
[2024-08-15 07:09] LABS: Bedside Glucose 139 mg/dL (74-106)
[2024-08-15 07:52] LABS: Absolute Lymphocyte Count 0.67 X10^3/uL (0.83-4.51); Absolute Neutrophil Count 3.6 X10^3/uL (2.0-7.7); Basophil# 0.04 X10^3/uL; Basophil% 0.7 % (0-1); Eosinophil# 0.81 X10^3/uL; Eosinophils% 13.7 % (0-5); Hematocrit 31.1 % (37-47); Hemoglobin 10.4 g/dL (12.0-15.0); Lymphocyte # 0.67 X10^3/ul (0.83-4.51); Lymphocyte % 11.3 % (19-41); Mean Corp Hgb Conc 33.4 g/dL (32-36); Mean Corpuscular Hgb 31.4 pg (27.0-32.0); Mean Platelet Vol. 10.5 fl (6.2-12.0); Monocyte# 0.69 X10^3/uL; Monocyte% 11.6 % (0-10); NRBC Flagged by Analyzer 0.3 % (0-5); Neutrophil # 3.64 X10^3/uL (2.7-7.7); Neutrophil % 61.4 % (47-70); Platelet Count 165 K/mm3 (150-450); RBC Distribution Width CV 14.1 % (11.6-14.6); RBC Distribution Width SD 48.9 fl (35.1-43.9); Red Blood Count 3.31 M/mm3 (4.2-5.4); White Blood Count 5.9 K/mm3 (4.4-11.0)
[2024-08-15] MEDS: Calcium Carb/Vitamin D 1 TABLET Tablet PO ×2 (08:54→17:26)
[2024-08-15] MEDS: Ascorbic Acid 500 MG Tablet 1000 MG PO ×2 (08:54→17:26)
[2024-08-15] MEDS: Pantoprazole Sodium 20 MG Tablet PO (08:55)
[2024-08-15] MEDS: Metoprolol(XL)Succ 100 MG Tablet PO (08:55)
[2024-08-15] MEDS: Ranolazine 500 MG Tablet PO (08:56)
[2024-08-15] MEDS: amLODIPine 5 MG Tablet PO (08:56)
[2024-08-15] MEDS: Zinc Sulfate 50 mg zinc (220 mg) ORAL capsule PO (08:59)
[2024-08-15 09:37] LABS: Anion Gap 13 (5-15); BUN 17 mg/dL (4-19); BUN/Creat Ratio 10.7 RATIO (10-20); Calcium 8.5 mg/dL (7.6-11.0); Carbon Dioxide 23.1 mmol/L (22.0-29.0); Chloride 100 mmol/L (96-108); Creatinine, Serum 1.61 mg/dL (0.70-1.20); EST Glomerular Filtration Rate 32 (>60); Estimated Creatinine Clearance 22.85 ml/min (50-250); Glucose 148 mg/dL (70-99); Potassium 3.5 mmol/L (3.3-5.1); Sodium Level 136 mmol/L (133-145)
--- NOTE | 2024-08-15 09:41 | CASEMGMT ---
ZOEY RIVAS Assessment: Face to Face with pt for initial transition planning/care coordination assessment. ZOEY RIVAS introduced self and role at [facility], pt voices understanding and consents to assessment. Pt is A&O x4 and answers all questions appropriately at this time. Pt lying in bed in no distress. Care providers, pharmacy, and demographics verified/updated. Strata: 2 Admitting Dx: PNA, Respiratory Insufficiency, UTI, Metastatic breast cancer PCP: [facility] Specialists: Darleen PRICE, Furniture Builder; Abdoulaye, Oncologist Preferred Pharmacy: [facility] Insurance: [employer], [employer] Prescription Benefit: yes LNOK: SonMatthew Living Arrangements: Pt lives alone in a multi-level home. Everything pt needs is accessible from main level except the laundry. ADLs: Pt states I at baseline. Transportation: Pt drives self and denies concerns with transportation. DME: glucometer and supplies, walker, cane. HHC/SNF: Pt previously at [facility], had HHC but does not recall what agency. Pt states she does not feel she is able to take care of herself at time of dc. Pt states she is still weak and not able to get up or walk without assistance. Pt would like a referral made to [facility], she was happy with their services the last time she was there. ZOEY RIVAS notified SW of pt request. If not able to accept, pt would like a list of local facilities. Pt states no further concerns/needs. CM to follow. Advised pt to ask CM if any further question/concerns/needs arise, voices understanding. Pt Goal: SNF Plan: SNF [facility] CM
--- NOTE | 2024-08-15 09:50 | CASEMGMT ---
Discharge Planning Referral sent to [facility]. Humera Art DC Planning Asst.
--- NOTE | 2024-08-15 09:58 | CASEMGMT ---
Addendum entered by Paige Patel 08/15/24 16:01: LANDON discussed discharge plans with pt. Pt can bring in chemo medication to [facility]. Pt would prefer to not have insulin pump turned off, per [facility] request. Pt will think about this and asked SW to check with TCU on bed availability as an alternate choice if she decides against turning her pump off. SW completed referral to TCU to check on bed availability. LANDON remains available to follow. CLARENCE Bosch Original Note: Social Work- LANDON notified that pt would like SNF. No list desired at this time, as pt reports that she would like [facility] as FOC. LANDON notified [facility] of referral request. LANDON remains available to follow. CLARENCE Bosch
--- NOTE | 2024-08-15 11:13 | CPS ---
SMI and Pep held at this time, Pt sleeping
--- NOTE | 2024-08-15 11:20 | PN.HOSP_ITS ---
Reason for Visit Reason for Visit: Diagnoses Malignant neoplasm of unspecified site of left female breast (08/14/24) Overweight (08/14/24) Pneumonia, unspecified organism (08/14/24) Acute cystitis without hematuria (08/14/24) Other abnormalities of breathing (08/14/24) Difficulty in walking, not elsewhere classified (08/14/24) Weakness (08/14/24) Other specified abnormal findings of blood chemistry (08/14/24) Estrogen receptor positive status [ER+] (08/14/24) Objective Data Objective Data Vital Signs: Vital Signs Temp Pulse Resp BP Pulse Ox O2 Del Method 99.6 F H 88 16 126/64 H 100 Room Air 08/15/24 09:47 08/15/24 09:47 08/15/24 09:47 08/15/24 09:47 08/15/24 09:47 08/15/24 09:47 Oxygen Delivery Method Room Air Weight: 135 lb 12.876 oz Body Mass Index (BMI) 27.3 Intake & Output: Intake and Output for Last 24 Hours 08/13/24 08/14/24 08/15/24 23:59 23:59 23:59 Intake Total 2023. / 4.67 455 / 455 Output Total 100 / 100 Balance 2023. / 2123. 355 / 355 Lab / Micro Data 08/15/24 07:00 08/15/24 07:00 Labs: Laboratory Results - last 24 hr 08/14/24 11:08: POC Glucose 187 H 08/14/24 16:41: POC Glucose 127 H 08/14/24 22:07: POC Glucose 197 H 08/15/24 06:43: POC Glucose 139 H 08/15/24 07:00: WBC 5.9, RBC 3.31 L, Hgb 10.4 L, Hct 31.1 L, MCV 94.0, MCH 31.4, MCHC 33.4, RDW Std Deviation 48.9 H, RDW Coeff of Alex 14.1, Plt Count 165, MPV 10.5, Immature Gran % (Auto) 1.300 H, Neut % (Auto) 61.4, Lymph % (Auto) 11.3 L, George % (Auto) 11.6 H, Eos % (Auto) 13.7 H, Baso % (Auto) 0.7, Absolute Neuts (auto) 3.6, Absolute Lymphs (auto) 0.67 L, Nucleated RBC % 0.3, Sodium 136, Potassium 3.5, Chloride Direct 100, Carbon Dioxide 23.1, Anion Gap 13, BUN 17, C reatinine 1.61 H, Estim Creat Clear Calc 22.85 L, Est GFR (MDRD) Non-Af 32 L, BUN/Creatinine Ratio 10.7, Glucose 148 H, Calcium 8.5 Micro: Microbiology 08/13/24 21:23 Mucosa - Nose SARS-CoV-2, Influenza & RSV (PCR) - Final Rhythm Strip Rhythm Strip: Sinus Rhythm Rate: 73 Ectopy: None Physical Exam Narrative Seen and examined. She has swelling, of upper and lower extremities. History of left breast cancer on Avastin, last dose on past Thursday about 4 days ago. Admitted with generalized weakness, and itching and mild shortness of breath. Occasional mild cough. Physical exam General: Alert, Oriented x3, Cooperative HEENT: Atraumatic, PERRLA, EOMI, Normocephalic Oral: No Gingival or Mucosal Lesions/ Ulcerations Neck: Supple, No JVD, Negative Carotid Bruits Chest wall/Lungs: Air entry diminished in bilateral lung bases. No crepitation/rhonchi Cardiovascular: Regular rate, Regular Rhythm, Normal S1, Normal S2, No M/G/R Abdomen: Bowel Sounds Present, Soft, Non Tender, Non-Distended : No dysuria. No renal angle tenderness. No suprapubic tenderness. Extremities: Generalized edema of upper extremity and lower legs, right leg, more than left arm., Capillary Refill Less than 3 Seconds Skin: Dry and rough skin with sandpaperlike maculopapular rash over lower back, upper arms and right leg, looks better. No active bleeding but high risk of bleeding. Musculoskeletal: No Tenderness to Palpation of Joints or Extremities. ROM restricted Neurological: Cranial nerves II-XII grossly intact, DTR 2+/4. No acute focal neurological deficit. Psych/Mental Status: Flat affect Assessment & Plan Assessment/Plan (1) Pneumonia: QUALIFIERS: Laterality: unspecified laterality Lung location: u nspecified part of lung Pneumonia type: due to unspecified organism Qualified Code(s): J18.9 - Pneumonia, unspecified organism (2) D-dimer, elevated: (3) Acute respiratory insufficiency: (4) Acute cystitis without hematuria: (5) Breast cancer metastasized to multiple sites: QUALIFIERS: Laterality: left Qualified Code(s): C50.912 - Malignant neoplasm of unspecified site of left female breast (6) Estrogen receptor positive status (ER+): (7) Generalized weakness: (8) Ambulatory dysfunction: (9) Overweight (BMI 25.0-29.9): PLAN: Plan 79-year-old female was admitted with generalized weakness for 2 weeks, rash on arms, chest and back and ears and mild shortness of breath on the day of admission. No fever. Last chemotherapy was 3 days ago before admission on past Thursday. Was feeling dizzy feeling like near passout sensation would not pass out. She had an episode of cough. 1. Atypical pneumonia: Patient is being admitted MedSurg floor. CTA chest does not show pulmonary embolism but bronchial thickening and scattered [id number] type nodule seen suspicious for Pneumonia with a small Left pleural effusion:- Admit to general medical floor with telemetric monitoring. D-dimer elevated probably acute phase reactant. On IV antibiotics ceftriaxone and azithromycin. Guaifenesin. Venous duplex lower extremity also ordered. Denies acute lower urinary tract symptoms including increased frequency urgency/dysuria. Patient has chronic increased frequency with bathroom every 3- 4 hours. UA shows WBC 10-25 cells, LE 500 but negative nitrite. 0 bacteria. 3/3: Continue same treatment. 2. 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 Stanford of oncology with CTA of chest this admission revealing multiple sclerotic foci seen throughout the ribs as well as thoracic spine consistent with osseous metastatic disease: Maintain current regimen with the patient now only on everolimus as exemestane and dexamethasone have already been held. Diffuse maculopapular rash with dry and thin skin: Eucerin skin emollient ordered. Probably skin toxicity from chemotherapy. 3/3: She has edema of all 4 extremities. IV Lasix ordered. 3. Generalized Weakness-continue PT/OT and Case Managemen for discharge 4. Zuleika's thyroiditis and hypothyroidism: On levothyroxine. TSH normal 1.41. 5. Hypertension, dyslipidemia and overweight: Patient BMI 28.4 kg/m? on admission. Regulatory Affairs Specialist consult. Blood pressure is controlled. Continue home medication. 6. 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 AC/HS plus SSI. A1c 8.3% 7. History of thrombocytopenia - Stable with platelet count of 180K present on admission. Most patient 1 50,000. 8. CAD; on ranolazine - Resume ranolazine as before. 9. CKD stage 4-creatinine 1.7 to on admission, slight improvement 1.60. Patient creatinine was 2.22 in July 14, 202408/15: Her creatinine is 1.61. 10. Osteoporosis and osteoarthritis and paresthesia of lower extremity chronic back pain: PT and OT ordered DVT/GI prophylaxis - Lovenox 30 mg sq daily. On PPI Microbiology Past 72 Hours 08/13/24 21:23 Mucosa - Nose SARS-CoV-2, Influenza & RSV (PCR) - Final Laboratory Results 08/14/24 16:41: POC Glucose 127 H 08/14/24 22:07: POC Glucose 197 H 08/15/24 06:43: POC Glucose 139 H 08/15/24 07:00: WBC 5.9, RBC 3.31 L, Hgb 10.4 L, Hct 31.1 L, MCV 94.0, MCH 31.4, MCHC 33.4, RDW Std Deviation 48.9 H, RDW Coeff of Alex 14.1, Plt Count 165, MPV 10.5, Immature Gran % (Auto) 1.300 H, Neut % (Auto) 61.4, Lymph % (Auto) 11.3 L, George % (Auto) 11.6 H, Eos % (Auto) 13.7 H, Baso % (Auto) 0.7, Absolute Neuts (auto) 3.6, Absolute Lymphs (auto) 0.67 L, Nucleated RBC % 0.3, Sodium 136, Potassium 3.5, Chloride Direct 100, Carbon Dioxide 23.1, Anion Gap 13, BUN 17, C reatinine 1.61 H, Estim Creat Clear Calc 22.85 L, Est GFR (MDRD) Non-Af 32 L, BUN/Creatinine Ratio 10.7, Glucose 148 H, Calcium 8.5 08/15/24 11:16: POC Glucose 98 Charges/Coding Visit Charges Inpatient E&M: 40049 Subs Hosp L2
[2024-08-15 11:34] LABS: Bedside Glucose 98 mg/dL (74-106)
[2024-08-15] MEDS: Furosemide 40 MG/4 ML Vial IV (15:41)
[2024-08-15 16:09] LABS: Bedside Glucose 117 mg/dL (74-106)
[2024-08-15] MEDS: Petrolatum 33% Tube 1 APPLIC TOPICAL (21:25)
[2024-08-15] MEDS: Ceftriaxone 1 GM/50 ML BAG IV (23:24)
[2024-08-16] VITALS (7 sets, daily range): BP systolic 122–137; BP diastolic 52–60; PULSE 81–94; RESP 15–17; TEMP 36.3–37.2; O2SAT 93–98; BMI 27.4
[2024-08-16 00:23] LABS: Bedside Glucose 125 mg/dL (74-106)
[2024-08-16] MEDS: Enoxaparin 30 MG/0.3 ML Syringe SC (06:15)
[2024-08-16] MEDS: Levothyroxine 50 MCG Tablet PO (06:15)
[2024-08-16 06:35] LABS: Bedside Glucose 144 mg/dL (74-106)
[2024-08-16 07:39] LABS: Absolute Neutrophil Count 2.8 X10^3/uL (2.0-7.7); Basophil# 0.04 X10^3/uL; Basophil% 0.9 % (0-1); Eosinophil# 0.58 X10^3/uL; Eosinophils% 12.4 % (0-5); Hematocrit 27.5 % (37-47); Hemoglobin 9.3 g/dL (12.0-15.0); Lymphocyte % 12.8 % (19-41); Mean Corp Hgb Conc 33.8 g/dL (32-36); Mean Corpuscular Hgb 31.1 pg (27.0-32.0); Mean Platelet Vol. 10.4 fl (6.2-12.0); Monocyte# 0.62 X10^3/uL; Monocyte% 13.3 % (0-10); NRBC Flagged by Analyzer 0 % (0-5); Neutrophil # 2.76 X10^3/uL (2.7-7.7); Neutrophil % 59.1 % (47-70); POSITIVE DIFFERENTIAL YES; Platelet Count 158 K/mm3 (150-450); RBC Distribution Width CV 14.2 % (11.6-14.6); RBC Distribution Width SD 47.9 fl (35.1-43.9); Red Blood Count 2.99 M/mm3 (4.2-5.4); White Blood Count 4.7 K/mm3 (4.4-11.0)
[2024-08-16 07:49] LABS: Differential Indicated SCAN CRITERIA MET
[2024-08-16 08:53] LABS: Anion Gap 13 (5-15); BUN 17 mg/dL (4-19); BUN/Creat Ratio 10.4 RATIO (10-20); Calcium 8.2 mg/dL (7.6-11.0); Carbon Dioxide 24.5 mmol/L (22.0-29.0); Chloride 101 mmol/L (96-108); Creatinine, Serum 1.65 mg/dL (0.70-1.20); EST Glomerular Filtration Rate 31 (>60); Estimated Creatinine Clearance 22.33 ml/min (50-250); Glucose 109 mg/dL (70-99); Potassium 3.3 mmol/L (3.3-5.1); Sodium Level 138 mmol/L (133-145)
[2024-08-16] MEDS: Ascorbic Acid 500 MG Tablet 1000 MG PO ×2 (09:20→16:50)
[2024-08-16] MEDS: Metoprolol(XL)Succ 100 MG Tablet PO (09:21)
[2024-08-16] MEDS: Calcium Carb/Vitamin D 1 TABLET Tablet PO ×2 (09:22→16:50)
[2024-08-16] MEDS: Zinc Sulfate 50 mg zinc (220 mg) ORAL capsule PO (09:22)
[2024-08-16] MEDS: Ranolazine 500 MG Tablet PO (09:22)
[2024-08-16] MEDS: amLODIPine 5 MG Tablet PO (09:25)
[2024-08-16] MEDS: Pantoprazole Sodium 20 MG Tablet PO (09:25)
[2024-08-16] MEDS: guaiFENesin 600 MG Tablet PO (09:25)
[2024-08-16] MEDS: Furosemide 40 MG/4 ML Vial IV ×2 (09:26→16:50)
[2024-08-16] MEDS: Petrolatum 33% Tube 1 APPLIC TOPICAL ×2 (09:28→23:44)
[2024-08-16 11:28] LABS: Bedside Glucose 147 mg/dL (74-106)
--- NOTE | 2024-08-16 12:19 | CASEMGMT ---
Discharge Planning Pt has been accepted by TCU. Referral to [facility] cancelled. Humera Art DC Planning Asst.
[2024-08-16 16:19] LABS: Bedside Glucose 241 mg/dL (74-106)
--- NOTE | 2024-08-16 16:29 | PCM.PN.HOSP ---
Reason for Visit Reason for Visit: Diagnoses Malignant neoplasm of unspecified site of left female breast (08/14/24) Overweight (08/14/24) Pneumonia, unspecified organism (08/14/24) Acute cystitis without hematuria (08/14/24) Other abnormalities of breathing (08/14/24) Difficulty in walking, not elsewhere classified (08/14/24) Weakness (08/14/24) Other specified abnormal findings of blood chemistry (08/14/24) Estrogen receptor positive status [ER+] (08/14/24) Objective Data Objective Data Vital Signs: Vital Signs Temp Pulse Resp BP Pulse Ox O2 Del Method 97.3 F L 86 17 126/58 H 97 Room Air 08/16/24 12:37 08/16/24 12:37 08/16/24 12:37 08/16/24 12:37 08/16/24 15:18 08/16/24 15:18 Oxygen Delivery Method Room Air Weight: 136 lb 3.931 oz Body Mass Index (BMI) 27.4 Intake & Output: Intake and Output for Last 24 Hours 08/14/24 08/15/24 08/16/24 23:59 23:59 23:59 Intake Total 4.67 / 2124.67 1155 / 1155 255 / 255 Output Total 100 / 100 Balance 2023. / 4.67 1055 / 1055 255 / 255 Lab / Micro Data 08/16/24 06:59 08/16/24 06:59 Labs: Laboratory Results - last 24 hr 08/15/24 21:22: POC Glucose 125 H 08/16/24 06:14: POC Glucose 144 H 08/16/24 06:59: WBC 4.7, RBC 2.99 L, Hgb 9.3 L, Hct 27.5 L, MCV 92.0, MCH 31.1, MCHC 33.8, RDW Std Deviation 47.9 H, RDW Coeff of Alex 14.2, Plt Count 158, MPV 10.4, Immature Gran % (Auto) 1.500 H, Neut % (Auto) 59.1, Lymph % (Auto) 12.8 L, [place] % (Auto) 13.3 H, Eos % (Auto) 12.4 H, Baso % (Auto) 0.9, Absolute Neuts (auto) 2.8, Absolute Lymphs (auto) 0.60 L, Nucleated RBC % 0, Sodium 138, Potassium 3.3, Chloride Direct 101, Carbon Dioxide 24.5, Anion Gap 13, BUN 17, Creatinine 1.65 H, Estim Creat Clear Calc 22.33 L, Est GFR (MDRD) Non-Af 31 L, BUN/Creatinine Ratio 10.4, Glucose 109 H, Calcium 8.2 08/16/24 11:10: POC Glucose 147 H 08/16/24 16:00: POC Glucose 241 H Micro: Microbiology 08/15/24 17:30 Stool Enteric Bacteriology - Final 08/15/24 17:30 Stool Clostridioides difficile (PCR) - Final 08/15/24 17:30 Urine, Clean Catch Legionella Antigen - Final 08/15/24 17:30 Urine, Clean Catch Streptococcus pneumoniae Antigen (M - Final 08/13/24 21:23 Mucosa - Nose SARS-CoV-2, Influenza & RSV (PCR) - Final Rhythm Strip Rhythm Strip: Sinus Rhythm Rate: 73 Ectopy: None Physical Exam Narrative Seen and examined. She has swelling, of upper and lower extremities, gradually getting better. BP around 100 mmHg. History of left breast cancer on Avastin, last dose on past Thursday about 4 days ago. Physical exam General: Alert, Oriented x3, Cooperative HEENT: Atraumatic, PERRLA, EOMI, Normocephalic Oral: No Gingival or Mucosal Lesions/ Ulcerations Neck: Supple, No JVD, Negative Carotid Bruits Chest wall/Lungs: Air entry diminished in bilateral lung bases. No crepitation/rhonchi Cardiovascular: Regular rate, Regular Rhythm, Normal S1, Normal S2, No M/G/R Abdomen: Bowel Sounds Present, Soft, Non Tender, Non-Distended : No dysuria. No renal angle tenderness. No suprapubic tenderness. Extremities: Generalized edema of upper extremity and lower legs, right leg, more than left arm., Capillary Refill Less than 3 Seconds Skin: Dry and rough skin with sandpaperlike maculopapular rash over lower back, upper arms and right leg, looks better, almost to the. No active bleeding but high risk of bleeding. Musculoskeletal: No Tenderness to Palpation of Joints or Extremities. ROM restricted Neurological: Cranial nerves II-XII grossly intact, DTR 2+/4. No acute focal neurological deficit. Psych/Mental Status: Flat affect Assessment & Plan Assessment/Plan (1) Pneumonia: QUALIFIERS: Laterality: unspecified laterality Lung location: unspecified part of lung Pneumonia type: due to unspecified organism Qualified Code(s): J18.9 - Pneumonia, unspecified organism (2) D-dimer, elevated: (3) Acute respiratory insufficiency: (4) Acute cystitis without hematuria: (5) Breast cancer metastasized to multiple sites: QUALIFIERS: Laterality: left Qualified Code(s): C50.912 - Malignant neoplasm of unspecified site of left female breast (6) Estrogen receptor positive status (ER+): (7) Generalized weakness: (8) Ambulatory dysfunction: (9) Overweight (BMI 25.0-29.9): PLAN: Plan 79-year-old female was admitted with generalized weakness for 2 weeks, rash on arms, chest and back and ears and mild shortness of breath on the day of admission. No fever. Last chemotherapy was 3 days ago before admission on past Thursday. Was feeling dizzy feeling like near passout sensation would not pass out. She had an episode of cough. 1. Atypical pneumonia: Patient is being admitted MedSurg floor. CTA chest does not show pulmonary embolism but bronchial thickening and scattered [id number] type nodule seen suspicious for Pneumonia with a small Left pleural effusion:- Admit to general medical floor with telemetric monitoring. D-dimer elevated probably acute phase reactant. On IV antibiotics ceftriaxone and azithromycin. Guaifenesin. Venous duplex lower extremity also ordered. Denies acute lower urinary tract symptoms including increased frequency urgency/dysuria. Patient has chronic increased frequency with bathroom every 3-4 hours. UA shows WBC 10-25 cells, LE 500 but negative nitrite. 0 bacteria. 3/3: Continue same treatment. 3/4 continue diuretics. Swelling is getting better. 2. 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 Stanford of oncology with CTA of chest this admission revealing multiple sclerotic foci seen throughout the ribs as well as thoracic spine consistent with osseous metastatic disease: Maintain current regimen with the patient now only on everolimus as exemestane and dexamethasone have already been held. Diffuse maculopapular rash with dry and thin skin: Eucerin skin emollient ordered. Probably skin toxicity from chemotherapy. 08/15: She has edema of all 4 extremities. IV Lasix ordered. 3. Generalized Weakness-continue PT/OT and Case Managemen for discharge 08/16 PT and OT. Pre-CERT pending 4. Zuleika's thyroiditis and hypothyroidism: On levothyroxine. TSH normal 1.41. 5. Hypertension, dyslipidemia and overweight: Patient BMI 28.4 kg/m? on admission. Machine Records Units Supervisor consult. Blood pressure is controlled. Continue home medication. 08/16: Blood pressure is normal 110s to 120s. Her usual blood pressure is 110s to 120s 6. 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 AC/HS plus SSI. A1c 8.3% 7. History of thrombocytopenia - Stable with platelet count of 180K present on admission. Most patient 1 50,000. 8. CAD; on ranolazine - Resume ranolazine as before. 9. CKD stage 4-creatinine 1.7 to on admission, slight improvement 1.60. Patient creatinine was 2.22 in July 14, 202408/15: Her creatinine is 1.61. 10. Osteoporosis and osteoarthritis and paresthesia of lower extremity chronic back pain: PT and OT ordered DVT/GI prophylaxis - Lovenox 30 mg sq daily. On PPI Charges/Coding Visit Charges Inpatient E&M: 58674 Subs Hosp L2
[2024-08-16] MEDS: 0.9% Saline Lock 10 ML Syringe IV ×3 (16:51→22:03)
--- NOTE | 2024-08-16 17:36 | CASEMGMT ---
Social Work- SW met with pt to discuss discharge plans. SW provided information from TCU that pt is able to have insulin pump on while on unit, pt would not be able to have Masci appointments while on unit, and pt would not be required to being medications to unit. TCU does have a bed and can accept if pt is agreeable to conditions stated. Pt preference is placement at TCU vs [facility] due to insulin pump. LANDON updated [facility] that [facility] referral can be withdrawn. SW updated TCU admissions that pt agreeable to parameters for admittance. SW remains available to follow. Plan: TCU, when medically ready CLARENCE Bosch
[2024-08-16] MEDS: Ceftriaxone 1 GM/50 ML BAG IV (22:08)
[2024-08-16 22:43] LABS: Bedside Glucose 81 mg/dL (74-106)
[2024-08-16] MEDS: Azithromycin 500 MG in 0.9% Normal Saline (250mL Bag) 250 ML 255 MG IV ×2 (23:44)
[2024-08-17 03:55] VITALS: BP 111/50; PULSE 74; RESP 15; TEMP 37.2; O2SAT 96
[2024-08-17 05:45] VITALS: BMI 28.0
[2024-08-17] MEDS: Levothyroxine 50 MCG Tablet PO (06:11)
[2024-08-17 07:25] LABS: Bedside Glucose 58 mg/dL (74-106)
[2024-08-17 08:12] VITALS: BP 110/50; PULSE 79; RESP 16; TEMP 36.6; O2SAT 96
[2024-08-17] MEDS: Ascorbic Acid 500 MG Tablet 1000 MG PO (08:23)
[2024-08-17] MEDS: Calcium Carb/Vitamin D 1 TABLET Tablet PO (08:23)
[2024-08-17 08:53] LABS: Bedside Glucose 77 mg/dL (74-106)
[2024-08-17] MEDS: Petrolatum 33% Tube 1 APPLIC TOPICAL (10:02)
[2024-08-17] MEDS: Pantoprazole Sodium 20 MG Tablet PO (10:03)
[2024-08-17] MEDS: Ranolazine 500 MG Tablet PO (10:04)
[2024-08-17] MEDS: Zinc Sulfate 50 mg zinc (220 mg) ORAL capsule PO (10:04)
[2024-08-17 10:05] VITALS: BP 110/50; PULSE 79
[2024-08-17] MEDS: Metoprolol(XL)Succ 50 MG Tablet PO (10:05)
[2024-08-17 10:26] LABS: Bedside Glucose 132 mg/dL (74-106)
--- NOTE | 2024-08-17 10:55 | TREXTCAR_ITS ---
Diet Diet Order/Speech Therapy: 08/14/24 03:55 Diet: Consistent Carb - Calorie Controlled Food consistency:: Regular Liquid Consistency:: Regular/Thin Type of Dietary Supplement:: Glucerna Shake Diet Comments: 4 oz vanilla w/ meals tid How many daily calories?: 2000 calorie Routine Orders/Code Status Suppository Type: Dulcolax 10mg Suppository Frequency: Daily PRN Routine Lab Work: BMP (in 1 week) DC O2, CPAP, BIPAP needs Home O2 Discharge instructions: No Therapies Extremity Affected:: Bilateral Lower Physical Therapy: Eval and Treat Occupational Therapy: Eval and Treat Speech Therapy: Eval and Treat Problem/Diagnosis (1) Pneumonia: Status: Acute Code(s): J18.9 - Pneumonia, unspecified organism (2) D-dimer, elevated: Status: Acute Code(s): R79.89 - Other specified abnormal findings of blood chemistry (3) Acute respiratory insufficiency: Status: Acute Code(s): R06.89 - Other abnormalities of breathing (4) Acute cystitis without hematuria: Status: Acute Code(s): N30.00 - Acute cystitis without hematuria (5) Breast cancer metastasized to multiple sites: Status: Acute Code(s): C50.919 - Malignant neoplasm of unspecified site of unspecified female breast (6) Estrogen receptor positive status (ER+): Status: Acute Code(s): Z17.0 - Estrogen receptor positive status [ER+] (7) Generalized weakness: Status: Acute Code(s): R53.1 - Weakness (8) Ambulatory dysfunction: Status: Acute Code(s): R26.2 - Difficulty in walking, not elsewhere classified (9) Overweight (BMI 25.0-29.9): Status: Acute Code(s): E66.3 - Overweight Plan 79-year-old female was admitted with generalized weakness for 2 weeks, rash on arms, chest and back and ears and mild shortness of breath on the day of admission. No fever. Last chemotherapy was 3 days ago before admission on past Thursday. Was feeling dizzy feeling like near passout sensation would not pass out. She had an episode of cough. 1. Atypical pneumonia: Patient is being admitted MedSurg floor. CTA chest does not show pulmonary embolism but bronchial thickening and scattered [id number] type nodule seen suspicious for Pneumonia with a small Left pleural effusion:- Admit to general medical floor with telemetric monitoring. D-dimer elevated probably acute phase reactant. On IV antibiotics ceftriaxone and azithromycin. Guaifenesin. Venous duplex lower extremity also ordered. Denies acute lower urinary tract symptoms including increased frequency urgency/dysuria. Patient has chronic increased frequency with bathroom every 3- 4 hours. UA shows WBC 10-25 cells, LE 500 but negative nitrite. 0 bacteria. 3: Continue same treatment. 2. 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 Stanford of oncology with CTA of chest this admission revealing multiple sclerotic foci seen throughout the ribs as well as thoracic spine consistent with osseous metastatic disease: Maintain current regimen with the patient now only on everolimus as exemestane and dexamethasone have already been held. Diffuse maculopapular rash with dry and thin skin: Eucerin skin emollient ordered. Probably skin toxicity from chemotherapy. 3: She has edema of all 4 extremities. IV Lasix ordered. 3. Generalized Weakness-continue PT/OT and Case Managemen for discharge 4. Zuleika's thyroiditis and hypothyroidism: On levothyroxine. TSH normal 1.41. 5. Hypertension, dyslipidemia and overweight: Patient BMI 28.4 kg/m? on admission. Casing Trimmer consult. Blood pressure is controlled. Continue home medication. 6. 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 AC/HS plus SSI. A1c 8.3% 7. History of thrombocytopenia - Stable with platelet count of 180K present on admission. Most patient 1 50,000. 8. CAD; on ranolazine - Resume ranolazine as before. 9. CKD stage 4-creatinine 1.7 to on admission, slight improvement 1.60. Patient creatinine was 2.22 in July 14, 202408/15: Her creatinine is 1.61. 10. Osteoporosis and osteoarthritis and paresthesia of lower extremity chronic back pain: PT and OT ordered DVT/GI prophylaxis - Lovenox 30 mg sq daily. On PPI Microbiology Past 72 Hours 08/13/24 21:23 Mucosa - Nose SARS-CoV-2, Influenza & RSV (PCR) - Final Laboratory Results 08/14/24 16:41: POC Glucose 127 H 08/14/24 22:07: POC Glucose 197 H 08/15/24 06:43: POC Glucose 139 H 08/15/24 07:00: WBC 5.9, RBC 3.31 L, Hgb 10.4 L, Hct 31.1 L, MCV 94.0, MCH 31.4, MCHC 33.4, RDW Std Deviation 48.9 H, RDW Coeff of Alex 14.1, Plt Count 165, MPV 10.5, Immature Gran % (Auto) 1.300 H, Neut % (Auto) 61.4, Lymph % (Auto) 11.3 L, [place] % (Auto) 11.6 H, Eos % (Auto) 13.7 H, Baso % (Auto) 0.7, Absolute Neuts (auto) 3.6, Absolute Lymphs (auto) 0.67 L, Nucleated RBC % 0.3, Sodium 136, Potassium 3.5, Chloride Direct 100, Carbon Dioxide 23.1, Anion Gap 13, BUN 17, Creatinine 1.61 H, Estim Creat Clear Calc 22.85 L, Est GFR (MDRD) Non-Af 32 L, BUN/Creatinine Ratio 10.7, Glucose 148 H, Calcium 8.5 08/15/24 11:16: POC Glucose 98 Allergies/Procedures Done in Hospital Allergies codeine Adverse Reaction (Verified 08/13/24 20:03) Vomiting hydrocodone Adverse Reaction (Verified 08/13/24 20:03) Vomiting meperidine (From Demerol) Adverse Reaction (Verified 08/13/24 20:03) Vomiting Type of Care/Length of Stay Estimated LOS: Convalescent Care Less Than 30 days Type of Care Needed: Skilled Rehab Potential: Good Prognosis: Good Additional Orders/Day of Discharge Day of Discharge: 08/17/24 Dietary and Speech Recommendations Dietitian Recommendations/Changes: Will liberalize diet to CHO Control w/ 4 oz vanilla glucerna shake tid w/ meals to help optimize pt po intake Discharge Plan Admission Admit Date/Time: 08/14/24 02:45 Primary Reason for Your Visit: pneumonia, swelling genralized, CKD Attending Provider: Ross Alvarez Primary Care Provider: Celina Dangelo Consulting Providers: Keon Reyes Discharge Orders/Prescriptions Prescriptions: New acetaminophen 325 mg Tablet 650 mg PO Q6H PRN PRN (Reason: Pain 1-10/22 or Fever) Qty: 0 0RF metoprolol succinate 50 mg Tablet Extended Release 24 Hr 50 mg PO BID Qty: 0 0RF insulin lispro [Humalog KwikPen Insulin] 100 unit/mL Insulin Pen See Protocol subcut ACHS Qty: 0 0RF Protocol: 3. Sliding Scale Insulin Med Dosing Condition: 150-189 mg/dl = 1 unit Condition: 190-229 mg/dl = 2 units Condition: 230-269 mg/dl = 3 units Condition: 270-309 mg/dl = 4 units Condition: 310-349 mg/dl = 5 units Condition: 350-399 mg/dl = 6 units Condition: 400-449 mg/dl = 7 units Condition: Greater than 449 call physician Protocol Text: Suggested for: - Patients on Total Daily Insulin Dose of 37-55 units - Obese, infected, or steroid patients MEDIUM DOSING ALGORITHIM furosemide [Lasix] 40 mg tablet 40 mg PO BID Qty: 60 0RF spironolactone 25 mg tablet 12.5 mg PO DAILY 30 Days Qty: 30 0RF cefdinir 300 mg capsule 300 mg PO BID 5 Days Qty: 10 0RF Continued Prolia 60 mg/mL syringe 60 mg SC [id number] Rx Instructions: every 3 month now. last in September calcium carbonate-vitamin D3 [Calcium 600 with Vitamin D3] 600 mg-12.5 mcg (500 unit) capsule 2 cap PO BID cyanocobalamin (vitamin B-12) 1,000 mcg/mL solution 1,000 mcg IM QMONTH simvastatin 10 mg tablet See Rx Instructions .ROUTE .COMPLEX Qty: 90 3RF Dose Instruction: TAKE 1 TABLET AT BEDTIME Rx Instructions: TAKE 1 TABLET AT BEDTIME insulin aspart U-100 [Novolog U-100 Insulin aspart] 100 unit/mL solution 100 unit subcut DAILY Qty: 90 3RF Rx Instructions: via insulin pump everolimus (antineoplastic) 10 mg tablet PO Patient Comments: [NO ORIGINAL SIG] exemestane 25 mg tablet 25 mg PO DAILY dexamethasone 0.5 mg/5 mL solution PO Patient Comments: [NO ORIGINAL SIG] ranolazine 500 mg tablet extended release 12 hr 500 mg PO DAILY Qty: 90 3RF levothyroxine 50 mcg tablet 50 mcg PO DAILY Qty: 90 3RF metoprolol succinate 100 mg tablet extended release 24 hr 100 mg PO DAILY Qty: 90 3RF Discontinued amlodipine 5 mg tablet 5 mg PO DAILY Referrals / Follow Up: Celina Dangelo DO [Primary Care Provider] - Alisson Purvis PA [Med Staff - [facility] Practice [facility]] - Within 2 Weeks Disposition Disposition (needs filled in before D/C Order can be placed): Nursing Home Facility (1) Pneumonia Qualifiers: Laterality: unspecified laterality Lung location: unspecified part of lung Pneumonia type: due to unspecified organism Qualified Code(s): J18.9 - Pneumonia, unspecified organism (5) Breast cancer metastasized to multiple sites Qualifiers: Laterality: left Qualified Code(s): C50.912 - Malignant neoplasm of unspecified site of left female breast
[2024-08-17 11:34] LABS: Bedside Glucose 173 mg/dL (74-106)
--- NOTE | 2024-08-17 11:38 | DS.PCM_ITS ---
Providers Date of Admission: 08/14/24 Date of Discharge: 08/17/24 Primary Care Physician: Dr. Celina Dangelo DO Reason For Visit: PNA, RESPIRATORY INSUFFICIENCY, UTI, MET. BREAST Diagnosis Discharge Diagnosis (1) Pneumonia: Status: Acute Code(s): J18.9 - Pneumonia, unspecified organism Qualifiers: Laterality: unspecified laterality Lung location: unspecified part of lung Pneumonia type: due to unspecified organism Qualified Code(s): J18.9 - Pneumonia, unspecified organism (2) D-dimer, elevated: Status: Acute Code(s): R79.89 - Other specified abnormal findings of blood chemistry (3) Acute respiratory insufficiency: Status: Acute Code(s): R06.89 - Other abnormalities of breathing (4) Acute cystitis without hematuria: Status: Acute Code(s): N30.00 - Acute cystitis without hematuria (5) Breast cancer metastasized to multiple sites: Status: Acute Code(s): C50.919 - Malignant neoplasm of unspecified site of unspecified female breast Qualifiers: Laterality: left Qualified Code(s): C50.912 - Malignant neoplasm of unspecified site of left female breast (6) Estrogen receptor positive status (ER+): Status: Acute Code(s): Z17.0 - Estrogen receptor positive status [ER+] (7) Generalized weakness: Status: Acute Code(s): R53.1 - Weakness (8) Ambulatory dysfunction: Status: Acute Code(s): R26.2 - Difficulty in walking, not elsewhere classified (9) Overweight (BMI 25.0-29.9): Status: Acute Code(s): E66.3 - Overweight Plan 79-year-old female was admitted with generalized weakness for 2 weeks, rash on arms, chest and back and ears and mild shortness of breath on the day of admission. No fever. Last chemotherapy was 3 days ago before admission on past Thursday. Was feeling dizzy feeling like near passout sensation would not pass out. She had an episode of cough. 1. Atypical pneumonia: Patient is being admitted MedSurg floor. CTA chest does not show pulmonary embolism but bronchial thickening and scattered [id number] type nodule seen suspicious for Pneumonia with a small Left pleural effusion:- Admit to general medical floor with telemetric monitoring. D-dimer elevated probably acute phase reactant. On IV antibiotics ceftriaxone and azithromycin. Guaifenesin. Venous duplex lower extremity also ordered. Denies acute lower urinary tract symptoms including increased frequency urgency/dysuria. Patient has chronic increased frequency with bathroom every 3- 4 hours. UA shows WBC 10-25 cells, LE 500 but negative nitrite. 0 bacteria. 3: Continue same treatment. 08/17: Patient is being discharged on cefdinir. She had 4 doses of azithromycin. 2. 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 Stanford of oncology with CTA of chest this admission revealing multiple sclerotic foci seen throughout the ribs as well as thoracic spine consistent with osseous metastatic disease: Maintain current regimen with the patient now only on everolimus as exemestane and dexamethasone have already been held. Diffuse maculopapular rash with dry and thin skin: Eucerin skin emollient ordered. Probably skin toxicity from chemotherapy. 08/15: She has edema of all 4 extremities. IV Lasix ordered. 08/17: Prescription given for furosemide 40 mg p.o. twice daily and spironolactone 12.5 mg twice daily. Amlodipine discontinued. Advised follow-up with cardiology in 2 weeks. Follow-up BMP in 1 week. Follow-up with oncologist, Dr. Cheko Stanford and assistant gm of content & delivery. 3. Generalized Weakness-continue PT/OT and Case Managemen for discharge 4. Zuleika's thyroiditis and hypothyroidism: On levothyroxine. TSH normal 1.41. 5. Hypertension, dyslipidemia and overweight: Patient BMI 28.4 kg/m? on admission. 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 Blood pressure is controlled. Continue home medication. 6. 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 AC/HS plus SSI. A1c 8.3% 7. History of thrombocytopenia - Stable with platelet count of 180K present on admission. Most patient 1 50,000. 8. CAD; on ranolazine - Resume ranolazine as before. 9. CKD stage 4-creatinine 1.7 to on admission, slight improvement 1.60. Patient creatinine was 2.22 in July 14, 202408/15: Her creatinine is 1.61. 3/5 Creatinine is on baseline 1.65. 10. Osteoporosis and osteoarthritis and paresthesia of lower extremity chronic back pain: PT and OT ordered 11. She has chronic anemia due to anemia of chronic disease, osteoporosis severe breasts. Platelet count low normal 158,000 DVT/GI prophylaxis - Lovenox 30 mg sq daily. On PPI Medications at Discharge Home Medications calcium 600 mg (as carbonate)-vitamin D3 12.5 mcg (500 unit) capsule (Calcium with Vit D3) 2 cap PO BID 06/12/22 denosumab 60 mg/mL subcutaneous syringe (Prolia) 60 mg subcut [id number] osteoporosis 06/12/22 ranolazine 500 mg tablet,extended release,12 hr 500 mg PO DAILY #90 tabs 09/10/23 cyanocobalamin (vitamin B-12) 1,000 mcg/mL injection solution 1,000 mcg IM QMONTH 01/07/24 simvastatin 10 mg tablet See Rx Instructions .Route .COMPLEX #90 TABLETS 01/07/24 insulin aspart U-100 100 unit/mL subcutaneous solution (Novolog U-100 Insulin aspart) 100 unit subcut DAILY diabetes #90 mL 04/04/24 levothyroxine 50 mcg tablet 50 mcg PO DAILY #90 tabs 04/05/24 metoprolol succinate 100 mg tablet,extended release 24 hr 100 mg PO DAILY for blood pressure #90 TABLETS 06/22/24 dexamethasone 0.5 mg/5 mL oral solution mg PO 07/04/24 everolimus (antineoplastic) 10 mg tablet mg PO 07/04/24 exemestane 25 mg tablet 25 mg PO DAILY 07/04/24 acetaminophen 325 mg tablet 650 mg (2 x 325 mg) PO Q6H PRN PRN Pain 1-5/10 or Fever #0 tabs 08/17/24 cefdinir 300 mg capsule 300 mg PO BID 5 days #10 caps 08/17/24 furosemide 40 mg tablet (Lasix) 40 mg PO BID #60 tabs 08/17/24 insulin lispro 100 unit/mL subcutaneous pen (Humalog KwikPen (U-100) Insulin) See Protocol subcut ACHS #0 mL 08/17/24 metoprolol succinate 50 mg tablet,extended release 24 hr 50 mg PO BID #0 tabs 08/17/24 spironolactone 25 mg tablet 12.5 mg (1/2 x 25 mg) PO DAILY 1 month #30 tabs 08/17/24 Physical Exam Narrative Seen and examined. She has swelling, of upper and lower extremities, gradually getting better. Her antihypertensive medication being adjusted. Blood pressure 125/52. Amlodipine discontinued History of left breast cancer on Avastin, last dose on past Thursday about 4 days ago. Physical exam General: Alert, Oriented x3, Cooperative HEENT: Atraumatic, PERRLA, EOMI, Normocephalic Oral: No Gingival or Mucosal Lesions/ Ulcerations Neck: Supple, No JVD, Negative Carotid Bruits Chest wall/Lungs: Air entry diminished in bilateral lung bases. No crepitation/rhonchi Cardiovascular: Regular rate, Regular Rhythm, Normal S1, Normal S2, No M/G/R Abdomen: Bowel Sounds Present, Soft, Non Tender, Non-Distended : No dysuria. No renal angle tenderness. No suprapubic tenderness. Extremities: Generalized edema of upper extremity and lower legs, right leg, more than left arm., Capillary Refill Less than 3 Seconds Skin: Dry and rough skin with sandpaperlike maculopapular rash over lower back, upper arms and right leg, looks better, almost to the. No active bleeding but high risk of bleeding. Musculoskeletal: No Tenderness to Palpation of Joints or Extremities. ROM restricted Neurological: Cranial nerves II-XII grossly intact, DTR 2+/4. No acute focal neurological deficit. Psych/Mental Status: Flat affect Weight / BMI Weight Weight: 139 lb 1.787 oz Body Mass Index (BMI) 28.0 ABG / Lab / Microbiology Data 08/16/24 06:59 08/16/24 06:59 Laboratory: Laboratory Results - last 24 hr 08/16/24 16:00: POC Glucose 241 H 08/16/24 22:25: POC Glucose 81 08/17/24 06:15: POC Glucose 58 L 08/17/24 08:16: POC Glucose 77 08/17/24 09:59: POC Glucose 132 H 08/17/24 11:15: POC Glucose 173 H Microbiology: Microbiology 08/16/24 15:40 Stool Stool Lactoferrin - Final 08/16/24 15:40 Stool Stool Occult Blood (RENETTA) - Final 08/15/24 17:30 Stool Enteric Bacteriology - Final 08/15/24 17:30 Stool Clostridioides difficile (PCR) - Final 08/15/24 17:30 Urine, Clean Catch Legionella Antigen - Final 08/15/24 17:30 Urine, Clean Catch Streptococcus pneumoniae Antigen (M - Final 08/13/24 21:23 Mucosa - Nose SARS-CoV-2, Influenza & RSV (PCR) - Final D/C Instructions DC O2, CPAP, BIPAP Needs Home O2 Discharge instructions: No Meaningful Use Info Meaningful Use Meaningful Use Diagnoses (Choose all that apply): None applicable Ischemic Stroke Statin Dosing Therapy Reference: STATIN DOSE THERAPY REFERENCE: * Patients > 75 years receive moderate or high dose statin therapy. * Patients 75 years or YOUNGER should receive HIGH intensity statin dose unless contraindicated. You will be required to document reason for non-treatment if statin daily dose does not meet guidelines. HIGH DOSE STATIN THERAPY DAILY Atorvastatin > than or = to 40 mg Rosuvastatin > than or = to 20 mg Amlodipine + Atorvastatin > than or = to 2.5/40 mg Ezetimibe + Simvastatin 10/80 mg Simvastatin 80mg Discharge Plan Admission Admit Date/Time: 08/14/24 02:45 Primary Reason for Your Visit: pneumonia, swelling genralized, CKD Attending Provider: Ross Alvarez Primary Care Provider: Celina Dangelo Consulting Providers: Keon Reyes Discharge Orders/Prescriptions Prescriptions: New acetaminophen 325 mg Tablet 650 mg PO Q6H PRN PRN (Reason: Pain 1-5/10 or Fever) Qty: 0 0RF metoprolol succinate 50 mg Tablet Extended Release 24 Hr 50 mg PO BID Qty: 0 0RF insulin lispro [Humalog KwikPen Insulin] 100 unit/mL Insulin Pen See Protocol subcut ACHS Qty: 0 0RF Protocol: 3. Sliding Scale Insulin Med Dosing Condition: 150-189 mg/dl = 1 unit Condition: 190-229 mg/dl = 2 units Condition: 230-269 mg/dl = 3 units Condition: 270-309 mg/dl = 4 units Condition: 310-349 mg/dl = 5 units Condition: 350-399 mg/dl = 6 units Condition: 400-449 mg/dl = 7 units Condition: Greater than 449 call physician Protocol Text: Suggested for: - Patients on Total Daily Insulin Dose of 37-55 units - Obese, infected, or steroid patients MEDIUM DOSING ALGORITHIM furosemide [Lasix] 40 mg tablet 40 mg PO BID Qty: 60 0RF spironolactone 25 mg tablet 12.5 mg PO DAILY 30 Days Qty: 30 0RF cefdinir 300 mg capsule 300 mg PO BID 5 Days Qty: 10 0RF Continued Prolia 60 mg/mL syringe 60 mg SC [id number] Rx Instructions: every 3 month now. last in September calcium carbonate-vitamin D3 [Calcium 600 with Vitamin D3] 600 mg-12.5 mcg (500 unit) capsule 2 cap PO BID cyanocobalamin (vitamin B-12) 1,000 mcg/mL solution 1,000 mcg IM QMONTH simvastatin 10 mg tablet See Rx Instructions .ROUTE .COMPLEX Qty: 90 3RF Dose Instruction: TAKE 1 TABLET AT BEDTIME Rx Instructions: TAKE 1 TABLET AT BEDTIME insulin aspart U-100 [Novolog U-100 Insulin aspart] 100 unit/mL solution 100 unit subcut DAILY Qty: 90 3RF Rx Instructions: via insulin pump everolimus (antineoplastic) 10 mg tablet PO Patient Comments: [NO ORIGINAL SIG] exemestane 25 mg tablet 25 mg PO DAILY dexamethasone 0.5 mg/5 mL solution PO Patient Comments: [NO ORIGINAL SIG] ranolazine 500 mg tablet extended release 12 hr 500 mg PO DAILY Qty: 90 3RF levothyroxine 50 mcg tablet 50 mcg PO DAILY Qty: 90 3RF metoprolol succinate 100 mg tablet extended release 24 hr 100 mg PO DAILY Qty: 90 3RF Discontinued amlodipine 5 mg tablet 5 mg PO DAILY Referrals / Follow Up: Celina Dangelo DO [Primary Care Provider] - Alisson Purvis PA [Med Staff - Adv Practice Prof] - Within 2 Weeks Disposition Disposition (needs filled in before D/C Order can be placed): Nursing Home Facility Charges/Coding Visit Charges Inpatient E&M: 88404 Disch Hosp >30min
[2024-08-17 11:40] VITALS: BP 125/52; PULSE 85; RESP 16; TEMP 36.7; O2SAT 99
[2024-08-17] MEDS: Furosemide 40 MG/4 ML Vial IV (11:46)
[2024-08-17] MEDS: 0.9% Saline Lock 10 ML Syringe IV (11:46)
--- NOTE | 2024-08-17 12:40 | CASEMGMT ---
Addendum entered by Paige Patel 08/17/24 14:28: SW followed up on medication Everolimus. Pt reports that she is not taking it currently, as she is taking a break from chemo currently. LANDON updated TCU. CLARENCE Bosch Original Note: Social Work- Physician updated and pt is ready for discharge today.?LANDON met with pt and they are agreeable to discharge plan as stated above.?Bedside nurse notified of discharge. LANDON faxed documentation to TCU admissions. Plan: TCU; skilled level of care CLAR[facility] Bosch
== END 2024-08-17 14:35 | disposition skilled nursing facility (03) | DRG 194 ==
LOC: ED 08-14 01:51 → MS3 08-14 03:12
PROVIDERS: Admitting Provider Internal Medicine; Emergency Provider Emergency Medicine; PCP Family Medicine; Visit Provider Internal Medicine
DX: J18.9 Pneumonia, unspecified organism (principal); C79.51 Secondary malignant neoplasm of bone; N18.4 Chronic kidney disease, stage 4 (severe); N30.00 Acute cystitis without hematuria; C50.912 Malignant neoplasm of unspecified site of left female breast; E10.22 Type 1 diabetes mellitus with diabetic chronic kidney disease; D63.8 Anemia in other chronic diseases classified elsewhere; E03.9 Hypothyroidism, unspecified; E06.3 Autoimmune thyroiditis; I12.9 Hypertensive chronic kidney disease with stage 1 through stage 4 chronic kidney disease, or unspecified chronic kidney disease; E78.5 Hyperlipidemia, unspecified; M19.90 Unspecified osteoarthritis, unspecified site; E10.42 Type 1 diabetes mellitus with diabetic polyneuropathy; Z79.4 Long term (current) use of insulin; L27.0 Generalized skin eruption due to drugs and medicaments taken internally; R79.89 Other specified abnormal findings of blood chemistry; Z68.28 Body mass index [BMI] 28.0-28.9, adult; R09.02 Hypoxemia; E66.3 Overweight; R21 Rash and other nonspecific skin eruption; T45.1X5A Adverse effect of antineoplastic and immunosuppressive drugs, initial encounter; M81.0 Age-related osteoporosis without current pathological fracture; R53.1 Weakness; R60.0 Localized edema; R26.89 Other abnormalities of gait and mobility; Z79.52 Long term (current) use of systemic steroids; Z79.890 Hormone replacement therapy; Z96.41 Presence of insulin pump (external) (internal); Z17.0 Estrogen receptor positive status [ER+]; Z92.21 Personal history of antineoplastic chemotherapy; Z90.12 Acquired absence of left breast and nipple
CPT/HCPCS: 36415; 71046; 71275; 80048; 80053; 81001; 82274; 82962; 83036; 83605; 83630; 83735; 83880; 84100; 84443; 84484; 85025; 85027; 85379; 87177; 87209; 87449; 87493; 87506; 87631; 93005; 93970; 94668; 97116; 97162; 97166; 97530; 97535; 99252; 99285; Q9967; A4216; G0463; J1940

== ENCOUNTER 2024-08-17 14:42 | Inpatient (IN) | payer MEDICARE, OTHER, SELFPAY ==
[2024-08-17 15:02] VITALS: BP 140/82; PULSE 91; RESP 18; TEMP 37.2; O2SAT 97
[2024-08-17 15:09] VITALS: BMI 27.0
--- NOTE | 2024-08-17 15:45 | NURSING ---
pt no longer taking vit B12 states levels were elevated, does not want
[2024-08-17 17:18] LABS: Bedside Glucose 109 mg/dL (74-106)
[2024-08-17 18:03] VITALS: BP 117/48
[2024-08-17] MEDS: MethylPREDNISolone DosePak 4 MG BOX PO ×2 (18:06→21:09)
[2024-08-17] MEDS: Furosemide 40 MG Tablet PO (18:09)
[2024-08-17] MEDS: Calcium Carb/Vitamin D 1 TABLET Tablet 2 TABLET PO (18:09)
[2024-08-17] MEDS: 0.9% Saline Lock 10 ML Syringe IV (18:11)
--- NOTE | 2024-08-17 18:24 | PCM.HP.STD ---
HPI - General General Date of Admission: 08/17/24 Date of Service: 08/17/24 Chief Complaint: Here for rehabilitation. HPI Narrative BASSAM JAIN, is a 79 Female who presents with followin08/13/2024 [facility] ED shortness of breath, malaise, fatigue. Breast cancer on oral chemotherapy, last dose of chemotherapy 3 days ago, sees Dr. Cheko Stanford. Dizzy, near syncope, cough, felt she needed more oxygen. Kenalog cream for itchy rash. CTA chest negative pulmonary embolism, Hypoxic with ambulation, elevated WBC. covid/flu/rsv negative. CTA chest showed pneumonia. IV antibiotics given for pneumonia, urinalysis c/w UTI, urine sent. 08/14/2024 Admit [facility]. Ceftriaxone IV, Azithromycin IV for pneumonia. Doppler ultrasound bilateral lower extremity to rule out dvt. Wean oxygen as tolerated. Ceftriaxone IV, urine culture pending for urinary tract infection. PT/OT for discharge planning. 08/14/2024 Insulin pump for Type 1 diabetes, HbA1c 8.3%. 08/15/2024 Swelling upper and lower extremities. Ceftriaxone IV, Azithromycin IV for pneumonia/urinary tract infection. PT/OT for discharge planning. 08/15/2024 Doppler ultrasound bilateral lower extremity negative for dvt. 08/16/2024 Itching, mild shortness of breath.. Rash 2/ chemotherapy, treat with eucerin. Lasix IV for edema of all 4 extremities. PT/OT for SNF. 08/17/2024 Admit to TCU with debility, here for rehabilitation, strengthening, prior to discharge home alone. [facility] Medical History (Updated 08/17/24 @ 18:[address] Xavier Lawrence MD) Diabetes type 1, controlled Paresthesia and pain of extremity Iliotibial band syndrome affecting left lower leg Trochanteric bursitis, left hip Degenerative arthritis of hip Facet arthritis of lumbar region Segmental and somatic dysfunction of thoracic region Back pain Bone metastases Hypothyroidism due to Zuleika's thyroiditis Insulin pump titration Presence of insulin pump Diabetic polyneuropathy associated with type 1 diabetes mellitus Metastatic breast cancer Breast cancer, left Type 1 diabetes mellitus Diabetes mellitus Estrogen receptor positive status (ER+) Disproportion of reconstructed breast Acquired absence of left breast and nipple Breast ptosis Breast asymmetry Inversion of left nipple Invasive lobular carcinoma of left breast in female Vision problems Osteoporosis Osteoarthritis Kidney disease Hearing problem Cataracts, bilateral Back problem Hyperlipidemia Essential (primary) hypertension Facet arthropathy, lumbar Segmental and somatic dysfunction of pelvic region Segmental and somatic dysfunction of lumbar region Hyperthyroidism Environmental allergies Acute renal failure Arthritis Home Medications ?Medication ?Instructions ?Recorded ?Last Taken ?Type calcium 600 mg (as 2 cap PO BID supplement 06/12/22 Unknown History carbonate)-vitamin D3 12.5 mcg (500 unit) capsule (Calcium with Vit D3) denosumab 60 mg/mL subcutaneous 60 mg subcut [id number] osteoporosis 06/12/22 06/23/24 History syringe (Prolia) ranolazine 500 mg tablet,extended 500 mg PO DAILY heart health #90 09/10/23 Unknown Rx release,12 hr tabs cyanocobalamin (vitamin B-12) 1,000 mcg IM QMONTH supplement 01/07/24 Unknown History 1,000 mcg/mL injection solution simvastatin 10 mg tablet See Rx Instructions .Route 01/07/24 Unknown Rx .COMPLEX cholesterol #90 TABLETS insulin aspart U-100 100 unit/mL 100 unit subcut DAILY diabetes #90 04/04/24 Unknown Rx subcutaneous solution (Novolog mL U-100 Insulin aspart) levothyroxine 50 mcg tablet 50 mcg PO DAILY hypothyroidism #90 04/05/24 Unknown Rx tabs metoprolol succinate 100 mg 100 mg PO DAILY for blood pressure 06/22/24 Unknown Rx tablet,extended release 24 hr #90 TABLETS everolimus (antineoplastic) 10 mg 10 mg PO cancer 07/04/24 Unknown History tablet exemestane 25 mg tablet 25 mg PO DAILY 07/04/24 Unknown History acetaminophen 325 mg tablet 650 mg (2 x 325 mg) PO Q6H PRN PRN 08/17/24 Unknown Rx Pain 1-5/10 or Fever #0 tabs cefdinir 300 mg capsule 300 mg PO BID infection 08/17/24 Unknown History furosemide 40 mg tablet (Lasix) 40 mg PO BID fluid retention #60 08/17/24 Unknown Rx tabs insulin lispro 100 unit/mL See Protocol subcut ACHS #0 mL 08/17/24 Unknown Rx subcutaneous pen (Humalog KwikPen (U-100) Insulin) metoprolol succinate 50 mg 50 mg PO BID heart health #0 tabs 08/17/24 Unknown Rx tablet,extended release 24 hr phenylephrine-shark liver 1 applic IN TID #28.4 grams 08/17/24 Unknown Rx oil-mineral oil-petrolatum rectal ointment (Hemorrhoidal ointment) phenylephrine-shark liver 1 applic IN TID PRN hemorrhoids 08/17/24 Unknown History oil-mineral oil-petrolatum rectal ointment (Hemorrhoidal ointment) spironolactone 25 mg tablet 12.5 mg (1/2 x 25 mg) PO DAILY 08/17/24 Unknown Rx fluid retention 1 month #30 tabs Allergy/AdvReac Type Severity Reaction Status Date / Time codeine AdvReac Vomiting Verified 08/13/24 20:03 hydrocodone AdvReac Vomiting Verified 08/13/24 20:03 meperidine (From Demerol) AdvReac Vomiting Verified 08/13/24 20:03 Family History Father Myocardial infarction <55 Heart disease Hypertension High cholesterol Mother Osteoporosis Skin cancer Surgical History History of modified radical mastectomy of left breast (08/05/19) History of left breast biopsy (06/2019) Status post right breast biopsy History of left heart catheterization (10/30/06) History of tubal ligation Social History (Updated 08/17/24 @ 18:[address] Xavier Lawrence MD) household members: none Smoking Status: Never smoker alcohol intake: current alcohol intake frequency: holidays/special occasions only substance use type: does not use caffeine: Yes Type: coffee Number of servings: 2 additional social history: DOES USE ASPIRIN DOES NOT USE IBUPROFEN ROS Constitutional Constitutional: Reports weakness; Denies chills, fever(s) or weight gain ENT HEENT: Denies headache(s), nasal congestion or nasal discharge Cardiovascular Cardiovascular: Denies chest pain or palpitations Respiratory/Chest Respiratory/Chest: Denies cough, excessive phlegm production or shortness of breath with exertion Gastrointestinal Gastrointestinal: Denies abdominal pain, nausea or vomiting Genitourinary Genitourinary: Denies dysuria Musculoskeletal Musculoskeletal: Denies joint pain or joint swelling Integumentary Integumentary: Denies rash or wounds Neurologic Neurologic: Denies focal weakness, numbness or tingling Psychiatric Psychiatric: Denies anxiety, auditory hallucinations, depression, homicidal ideation or suicidal ideation Vital Signs Vital Signs Vital Signs: 08/17/24 15:02 08/17/24 15:31 08/17/24 16:11 Temperature 98.9 F Temperature Source Temporal Pulse Rate 91 Pulse Rhythm Regular Pulse Strength Normal (2+) Normal (2+) Respiratory Rate 18 Respiratory Effort Normal Non-Labored Respiratory Depth Normal Respiratory Pattern Normal Blood Pressure 140/82 H Blood Pressure Mean 101 Blood Pressure Source Monitor Blood Pressure Position Semi-Fowlers Blood Pressure Location Right Arm Pulse Ox 97 Oxygen Delivery Method Room Air Room Air 08/17/24 18:03 Temperature Temperature Source Pulse Rate Pulse Rhythm Pulse Strength Respiratory Rate Respiratory Effort Respiratory Depth Respiratory Pattern Blood Pressure 117/48 L Blood Pressure Mean 71 Blood Pressure Source Monitor Blood Pressure Position Semi-Fowlers Blood Pressure Location Right Arm Pulse Ox Oxygen Delivery Method Weight Weight: 60.781 kg Body Mass Index (BMI) 27.0 Physical Exam Const alert General Appearance: cooperative HEENT normocephalic Eyes PERRL and EOMs intact bilaterally Neck supple, no JVD and no carotid bruits Chest Chest Narrative: status left radical mastectomy. Resp normal respiratory effort, normal air movement and clear to auscultation bilaterally Cardio regular rate and regular rhythm GI normal to inspection, nondistended, normoactive bowel sounds, non-tender and non-distended Extremity normal capillary refill General Extremity: edema bilateral upper extremity and lower extremity Skin Skin Narrative: Diffuse macular rash on entire body. General Skin Exam: no breakdown Psych affect normal Appearance: appropriate Results Lab / Micro Data Labs: Laboratory Results - last 24 hr 08/17/24 16:58: POC Glucose 109 H Assessment & Plan Assessment/Plan (1) Debility: (2) Weakness: (3) Acute respiratory failure with hypoxia: (4) Pneumonia: QUALIFIERS: Laterality: unspecified laterality Lung location: unspecified part of lung Pneumonia type: due to unspecified organism Qualified Code(s): J18.9 - Pneumonia, unspecified organism (5) Urinary tract infection: (6) Type 1 diabetes mellitus: QUALIFIERS: Diabetes mellitus complication status: with hyperglycemia Qualified Code(s): E10.65 - Type 1 diabetes mellitus with hyperglycemia (7) Essential (primary) hypertension: (8) Chronic kidney disease, stage 3b: (9) Breast cancer: (10) Osteoporosis: (11) Coronary artery disease: (12) B12 deficiency: (13) Hyperlipidemia: QUALIFIERS: Hyperlipidemia type: mixed hyperlipidemia Qualified Code(s): E78.2 - Mixed hyperlipidemia (14) Hypothyroidism: (15) Acute heart failure with preserved ejection fraction (HFpEF): PLAN: Plan 79 year old female with below past medical history hospitalized for weakness, acute respiratory failure with hypoxia 2/2 pneumonia, complicated by urinary tract infection, diffuse drug rash, admitted to TCU with debility, here for rehabilitation, strengthening, prior to discharge home alone. Debility - PT/OT. Pain - Tylenol 1000mg q6 prn pain (1-10). Bowel - senna/colace 1 tablet bid, Magnesium citrate 300mL daily prn. Adult immunization - Adminsiter pneumonia vaccine, covid vaccine, flu vaccine as appropriate. DVT prophylaxis - Lovenox 30mg sc daily. Hyperlipidemia - Atorvastatin 5mg qhs. Calcium deficiency - Calcium D 2 tablets bidcm. Pneumonia/urinary tract infection - Cefdinir 300mg bid thru 08/22/2024. Acute HFpEF - Metoprolol succinate 100mg daily, Aldactone 12.5mg daily, Fuorsemide 40mg bidlx. Hemorrhoids - Anusol HC 25mg rectal bid prn. Hypothyroidism - Levothyroxine 50mcg daily. Drug rash - Medrol dose pack, monitor blood sugars closely and add insulin as needed. Coronary artery disease - Metoprolol succinate 100mg daily, Ranexa 500mg daily. Type 1 Diabetes - Insulin pump, monitor sugars closely, add insulin as needed.
[2024-08-17] MEDS: Cefdinir 300 MG Capsule PO (21:09)
--- NOTE | 2024-08-17 21:21 | NURSING ---
Patient refused HS Lipitor. States the first hospitalist that saw her told her not to take. Communication left for Dr. Lawrence for update and to review. Patient acknowledges.
[2024-08-17 22:12] LABS: Bedside Glucose 124 mg/dL (74-106)
[2024-08-18] MEDS: Levothyroxine 50 MCG Tablet PO (05:23)
[2024-08-18] MEDS: Enoxaparin 30 MG/0.3 ML Syringe SC (05:23)
[2024-08-18] MEDS: Furosemide 40 MG Tablet PO ×2 (05:23→09:51)
[2024-08-18 05:25] VITALS: BP 131/53; PULSE 91
[2024-08-18 05:46] LABS: Absolute Neutrophil Count 3.5 X10^3/uL (2.0-7.7); Basophil# 0.03 X10^3/uL; Basophil% 0.7 % (0-1); Eosinophil# 0.01 X10^3/uL; Eosinophils% 0.2 % (0-5); Hematocrit 27.7 % (37-47); Hemoglobin 9.5 g/dL (12.0-15.0); Lymphocyte % 13.7 % (19-41); Mean Corp Hgb Conc 34.3 g/dL (32-36); Mean Corpuscular Hgb 31.3 pg (27.0-32.0); Mean Corpuscular Volume 91.1 fL (81-99); Mean Platelet Vol. 10.3 fl (6.2-12.0); Monocyte# 0.13 X10^3/uL; NRBC Flagged by Analyzer 0 % (0-5); Neutrophil # 3.53 X10^3/uL (2.7-7.7); Neutrophil % 80.6 % (47-70); POSITIVE DIFFERENTIAL YES; Platelet Count 174 K/mm3 (150-450); RBC Distribution Width SD 46.5 fl (35.1-43.9); Red Blood Count 3.04 M/mm3 (4.2-5.4); White Blood Count 4.4 K/mm3 (4.4-11.0)
[2024-08-18 06:39] LABS: Bedside Glucose 191 mg/dL (74-106)
[2024-08-18 07:20] LABS: Anion Gap 19 (5-15); BUN 19 mg/dL (4-19); BUN/Creat Ratio 9.6 RATIO (10-20); Calcium,Total 8.7 mg/dL (7.6-11.0); Carbon Dioxide 23.4 mmol/L (21.0-32.0); Chloride 95 mmol/L (98-108); Creatinine, Serum 1.96 mg/dL (0.70-1.20); EST Glomerular Filtration Rate 25 (>60); Estimated Creatinine Clearance 18.65 ml/min (50-250); Glucose 215 mg/dL (70-99); Potassium 3.3 mmol/L (3.3-5.1); Sodium Level 138 mmol/L (133-145)
--- NOTE | 2024-08-18 07:31 | NURSING ---
Dr. Lawrence on unit notified of patient insulin pump and current order to administer 100 units Insulin aspart daily via insulin pump per home regimen. Per Dr. Lawrence verbal order received: The patient is allowed to bolus dose the insulin pump per the pump settings and the basal insulin rate is programmed in the pump
[2024-08-18] MEDS: Calcium Carb/Vitamin D 1 TABLET Tablet 2 TABLET PO ×2 (07:59→16:45)
[2024-08-18] MEDS: MethylPREDNISolone DosePak 4 MG BOX PO ×4 (07:59→20:16)
[2024-08-18] MEDS: Cefdinir 300 MG Capsule PO (08:00)
[2024-08-18] MEDS: Ranolazine 500 MG Tablet PO (08:00)
[2024-08-18 08:03] VITALS: BP 123/58; PULSE 89
[2024-08-18] MEDS: Metoprolol(XL)Succ 100 MG Tablet PO (08:03)
--- NOTE | 2024-08-18 08:20 | NURSING ---
PT HAS OWN INSULIN AND INSULIN PUMP AND GIVES HERSELF THE INSULIN THREW PUMP. THIS NURSE STATED TO PT THAT WE NEED TO KNOW HOW MUCH INSULIN SHE GIVES TO HER SELF EACH TIME AND PHARMACY STATED THEY CAN NOT PUT LABEL ON FOR STAFF TO SCAN. PT STATED SHE UNDERSTOOD. RN AND CHANTALE PERRIN.
[2024-08-18 08:42] VITALS: BP 123/58; PULSE 89; RESP 16; TEMP 36.7; O2SAT 94
[2024-08-18] MEDS: Tuberculin,Purif.prot.deriv. 50 TU/ML Vial 0.1 ML ID (09:53)
[2024-08-18 11:38] LABS: Bedside Glucose 267 mg/dL (74-106)
--- NOTE | 2024-08-18 13:06 | NURSING ---
PT BS WAS 267. PT GAVE HER SELF 10 UNITS OF INSULIN.
--- NOTE | 2024-08-18 16:13 | CASEMGMT ---
Social Work SW met with patient to complete initial assessment. Introduced self and role. Verified/updated contacts. Confirmed DNR-CCA, no intubation as code status. Pt has advance directives but unable to provide copy. there are no friends or family locally to bring in during stay. SW educated to Medicare benefit and copay coverage. Pt's goal is to return home alone after short-rehab stay. SW discussed resources such as life alert and home delivered meals. Pt agreeable. SW to provide. Will continue to follow and assist with DC planning and support. Kim Sullivan ELECTRONICS COMPUTER MECHANIC SOCIETY REPORTER
--- NOTE | 2024-08-18 16:26 | PHA.CONS_ITS ---
Documented by User: Farheen Jerez 08/18/24 16:43 TCU RX Drug Regimen Review Subjective/Objective Subjective/Objective Subjective: TCU Admission. 79 YOF presented to the ER with SOB, fatigue, malaise. Hospitalized for weakness, acute respiratory failure with hypoxia 2/2 p neumonia, complicated by urinary tract infection, diffuse drug rash. Admitted to TCU with debility for strengthening and rehabilitation. Objective: Allergies codeine Adverse Reaction (Verified 08/13/24 20:03) Vomiting hydrocodone Adverse Reaction (Verified 08/13/24 20:03) Vomiting meperidine (From Demerol) Adverse Reaction (Verified 08/13/24 20:03) Vomiting Current Medications Generic Name Dose Route Start Last Admin Trade Name Freq PRN Reason Stop Dose Admin Acetaminophen 1,000 mg 08/17/24 18:46 Acetaminophen 500 Mg Tablet PO Q6H PRN PRN Pain Score 1-10 Calcium/Vitamin D 2 tablet 08/17/24 17:00 08/18/24 07:59 Calcium Carb/Vitamin D 1 Tablet Tablet PO 2 tablet BIDCM TRUDI Administration Cefdinir 300 mg 08/19/24 10:00 Cefdinir 300 Mg Capsule PO 08/22/24 10:01 DAILY TRUDI Enoxaparin Sodium 30 mg 08/18/24 06:00 08/18/24 05:23 Enoxaparin 30 Mg/0.3 Ml Syringe SC 30 mg DAILY@0600 TRUDI Administration Exemestane 25 mg 08/18/24 12:00 08/18/24 13:00 Exemestane 25 Mg Tablet PO 25 mg DAILY TRUDI Administration Furosemide 40 mg 08/18/24 10:00 08/18/24 09:51 Furosemide 40 Mg Tablet PO 40 mg DAILY TRUDI Administration Protocol Hydrocortisone Acetate 25 mg 08/17/24 16:30 Hydrocortisone 25 Mg Suppository RC BID PRN PRN HEMORRHOIDS Insulin Aspart 100 unit 08/18/24 17:00 Insulin Basal Pump SC 4X/DAY TRUDI Levothyroxine Sodium 50 mcg 08/18/24 06:00 08/18/24 05:23 Levothyroxine 50 Mcg Tablet PO 50 mcg DAILY@0600 TRUDI Administration Magnesium Citrate 300 ml 08/17/24 18:45 Magnesium Citrate 300 Ml PO DAILY PRN CONSTIPATION Methylprednisolone 4 mg 08/17/24 17:00 08/18/24 11:32 Methylprednisolone Dosepak 4 Mg Box PO 08/22/24 08:59 4 mg 0800,1200,1700 TRUDI Administration Taper Metoprolol Succinate 100 mg 08/18/24 10:00 08/18/24 08:03 Metoprolol(Xl)Succ 100 Mg Tablet PO 100 mg DAILY TRUDI Administration Protocol Ranolazine 500 mg 08/18/24 10:00 08/18/24 08:00 Ranolazine 500 Mg Tablet PO 500 mg DAILY TRUDI Administration Senna/Docusate Sodium 1 tablet 08/17/24 22:00 08/18/24 08:02 Senna/Docusate Sodium 1 Tablet PO Not Given BID TRUDI Sodium Chloride 10 - 40 ml 08/17/24 15:03 08/17/24 18:11 0.9% Saline Lock 10 Ml Syringe IV 10 ml UD PRN Administration SALINE FLUSH Tuberculin PPD 0.1 ml 08/25/24 10:00 Tuberculin,Purif.Prot.Deriv. 50 Tu/Ml Vial ID 08/25/24 10:01 X1 ONE Problem List Acute heart failure with preserved ejection fraction (HFpEF) (Acute) Hypothyroidism (Acute) B12 deficiency (Acute) Coronary artery disease (Acute) Osteoporosis (Acute) Breast cancer (Acute) Chronic kidney disease, stage 3b (Acute) Essential (primary) hypertension (Acute) Urinary tract infection (Acute) Acute respiratory failure with hypoxia (Acute) Weakness (Acute) Debility (Acute) Pneumonia (Acute) Type 1 diabetes mellitus (Chronic) Hyperlipidemia (Chronic) Vital Signs Temp Pulse Resp BP Pulse Ox O2 Del Method 98.1 F 89 16 123/58 H 94 Room Air 08/18/24 08:42 08/18/24 08:42 08/18/24 08:42 08/18/24 08:42 08/18/24 08:42 08/18/24 08:42 Oxygen Delivery Method Room Air Weight: 60.781 kg Body Mass Index (BMI) 27.0 Sodium 138 mmol/L (133-145) 08/18/24 05:30 Potassium 3.3 mmol/L (3.3-5.1) 08/18/24 05:30 Chloride 95 mmol/L (98-108) L 08/18/24 05:30 Carbon Dioxide 23.4 mmol/L (21.0-32.0) 08/18/24 05:30 Anion Gap 19 (5-15) H 08/18/24 05:30 BUN 19 mg/dL (4-19) 08/18/24 05:30 Creatinine 1.96 mg/dL (0.70-1.20) H 08/18/24 05:30 Est GFR (MDRD) Non-Af 25 (>60) L 08/18/24 05:30 BUN/Creatinine Ratio 9.6 RATIO (10-20) L 08/18/24 05:30 Glucose 215 mg/dL (70-99) H 08/18/24 05:30 Assessment/Plan: 1. Pain: acetaminophen 1000mg PO Q6H PRN pain 1-10. Resident has not used any PRN doses. Please continue to monitor for increased pain and PRN usage. 2. Bowel: senna/docusate 1T PO BID and magnesium chloride 300mL PO daily PRN constipation. No PRN doses have been given. Please continue to monitor for constipation and PRN usage. 3. DVT prophylaxis: enoxaparin 30mg SC daily. Please continue to monitor for S/S of bleeding/DVT, platelets (last 174,000), hemoglobin (last 9.5g/dL) and renal function (dose appropriate for CrCl 18 mL/min). 4. Pneumonia/UTI: cefdinir 300mg PO daily thru 08/22/24 (frequency adjusted to daily for CrCl 18mL/min). Please continue to monitor for S/S of infection, renal function, diarrhea and stool discoloration. 5. CAD/HFpEF: metoprolol succinate 100mg PO daily, furosemide 40mg PO daily, ranolazine 500mg PO daily. Please continue to monitor HR (last 89), BP (last 123/58), edema, renal function, potassium (last 3.3mmol/L), chest pain. 6. Hyperlipidemia: atorvastatin 5mg PO QHS. Please consider ordering a lipid panel as the last is from 2021. Thanks. Please continue to monitor LFTs (last 08/14/24) and muscle pain. 7. Hypothyroidism: levothyroxine 50mcg PO daily. Please continue to monitor TSH (last 08/14/24) and S/S of hypo/hyperthyroidism. 8. Drug Rash: Medrol dose pack. Please continue to monitor improvement in rash, S/S of infection, agitation, glucose (last 267mg/dL, pt has insulin pump secondary to Type 1 diabetes), hunger, upset stomach. 9. Calcium deficiency: calcium/vitamin D 2T PO BIDCM. Please continue to monitor calcium (last 8.7mg/dL) and vitamin D (last 12/29/23). 10. Hemorrhoids: hydrocortisone supp 25mg rectal BID PRN hemorrhoids. No PRN doses have been given. Please continue to monitor for PRN usage and hemorrhoids. 11. Breast cancer: exemestane 25mg PO daily. Please continue to monitor pain, r enal function, fractures and GI side effects. Assessment/Plan for indications treated with psychotropic medications: None Medical chart and medication regimen reviewed. The following medication irregularities or issues were identified: 1. Atorvastatin 5mg PO QHS. Please consider ordering a lipid panel as the last is from 2021. Thanks. Date Date of Note: 08/18/24 Documented by User: Dr. Xavier Lawrence MD 08/18/24 17:33 TCU RX Drug Regimen Review Provider Comments Provider responsibility Provider Comments to Recommendations by Pharmacy Agree
[2024-08-18 16:48] LABS: Bedside Glucose 268 mg/dL (74-106)
--- NOTE | 2024-08-18 18:38 | NURSING ---
PT GAVE HER SELF HER OWN INSULIN WITH INSULIN PUMP FOR SUPPER.
[2024-08-18] MEDS: 0.9% Saline Lock 10 ML Syringe IV (20:19)
[2024-08-18 21:45] LABS: Bedside Glucose 321 mg/dL (74-106)
[2024-08-19] MEDS: Levothyroxine 50 MCG Tablet PO (05:17)
[2024-08-19 06:17] LABS: Bedside Glucose 336 mg/dL (74-106)
[2024-08-19 06:38] LABS: Cholesterol 207 mg/dL (<=200); High Density Lipoprotein 64 mg/dL; Low Density Lipoprotein Calc. 115 mg/dL; Triglycerides 138 mg/dL; Very Low Density Lipoprotein 28 mg/dL (5-40); cholesterol:hdl ratio screen 3.23
[2024-08-19 06:43] LABS: Anion Gap 17 (5-15); BUN 28 mg/dL (4-19); BUN/Creat Ratio 14.5 RATIO (10-20); Calcium,Total 8.6 mg/dL (7.6-11.0); Carbon Dioxide 25.5 mmol/L (21.0-32.0); Chloride 93 mmol/L (98-108); Creatinine, Serum 1.96 mg/dL (0.70-1.20); EST Glomerular Filtration Rate 25 (>60); Estimated Creatinine Clearance 18.65 ml/min (50-250); Glucose 361 mg/dL (70-99); Potassium 3.4 mmol/L (3.3-5.1); Sodium Level 136 mmol/L (133-145)
[2024-08-19 08:04] VITALS: BP 119/58; PULSE 85; RESP 16; TEMP 36.5; O2SAT 100
[2024-08-19] MEDS: Insulin Lispro 100 UNIT/ML INSULN.PEN 10 UNIT SC (08:07)
[2024-08-19] MEDS: MethylPREDNISolone DosePak 4 MG BOX PO ×4 (08:08→21:45)
[2024-08-19] MEDS: Calcium Carb/Vitamin D 1 TABLET Tablet 2 TABLET PO ×2 (08:09→18:27)
[2024-08-19] MEDS: Cefdinir 300 MG Capsule PO (08:10)
[2024-08-19] MEDS: Furosemide 40 MG Tablet PO (08:10)
[2024-08-19 08:11] VITALS: PULSE 85
[2024-08-19] MEDS: Ranolazine 500 MG Tablet PO (08:11)
[2024-08-19] MEDS: Metoprolol(XL)Succ 100 MG Tablet PO (08:11)
[2024-08-19 11:23] LABS: Bedside Glucose 189 mg/dL (74-106)
--- NOTE | 2024-08-19 11:48 | NURSING ---
Manager Investment Banking Note; Activity Asset: Monse Flaherty is independent in her choice of daily activities. Her son's live out of town however she has her group of friends. She volunteers at the [facility] [employer] [facility], and is in a club. Krystina uses her smartphone and tablet for games, puzzles, internet and reading the newspaper. Staff will encourage social activities, remind her of weekly activities and respect her right to say no.
[2024-08-19 16:31] LABS: Bedside Glucose 160 mg/dL (74-106)
[2024-08-19 21:34] LABS: Bedside Glucose 229 mg/dL (74-106)
[2024-08-19] MEDS: Insulin Basal Pump 100 UNIT SC (21:44)
[2024-08-20] MEDS: Enoxaparin 30 MG/0.3 ML Syringe SC (05:11)
[2024-08-20] MEDS: Levothyroxine 50 MCG Tablet PO (05:11)
[2024-08-20 06:10] LABS: Bedside Glucose 233 mg/dL (74-106)
[2024-08-20 08:42] VITALS: BP 128/58; PULSE 85; RESP 17; TEMP 36.2; O2SAT 95
[2024-08-20] MEDS: Insulin Basal Pump 100 UNIT SC ×3 (08:45→16:40)
[2024-08-20] MEDS: MethylPREDNISolone DosePak 4 MG BOX PO ×3 (08:50→23:09)
[2024-08-20] MEDS: Calcium Carb/Vitamin D 1 TABLET Tablet 2 TABLET PO ×2 (08:51→16:40)
[2024-08-20] MEDS: Ranolazine 500 MG Tablet PO (08:52)
[2024-08-20] MEDS: Furosemide 40 MG Tablet PO (08:52)
[2024-08-20] MEDS: Cefdinir 300 MG Capsule PO (08:52)
[2024-08-20 08:53] VITALS: PULSE 85
[2024-08-20] MEDS: Metoprolol(XL)Succ 100 MG Tablet PO (08:53)
[2024-08-20 11:32] LABS: Bedside Glucose 229 mg/dL (74-106)
[2024-08-20 16:38] LABS: Bedside Glucose 231 mg/dL (74-106)
[2024-08-20] MEDS: Insulin Lispro 100 UNIT/ML INSULN.PEN 10 UNIT SC (18:32)
[2024-08-20 23:32] LABS: Bedside Glucose 179 mg/dL (74-106)
[2024-08-21 06:00] LABS: Bedside Glucose 162 mg/dL (74-106)
[2024-08-21] MEDS: Enoxaparin 30 MG/0.3 ML Syringe SC (06:47)
[2024-08-21] MEDS: Levothyroxine 50 MCG Tablet PO (06:47)
[2024-08-21] MEDS: Insulin Basal Pump 100 UNIT SC ×3 (06:48→17:29)
[2024-08-21 09:06] VITALS: BP 132/58; PULSE 73; RESP 17; TEMP 36.3; O2SAT 96
[2024-08-21] MEDS: MethylPREDNISolone DosePak 4 MG BOX PO ×2 (09:08→20:17)
[2024-08-21] MEDS: Cefdinir 300 MG Capsule PO (09:11)
[2024-08-21] MEDS: Calcium Carb/Vitamin D 1 TABLET Tablet 2 TABLET PO ×2 (09:11→17:28)
[2024-08-21] MEDS: Ranolazine 500 MG Tablet PO (09:11)
[2024-08-21] MEDS: Furosemide 40 MG Tablet PO (09:11)
[2024-08-21 09:12] VITALS: PULSE 73
[2024-08-21] MEDS: Metoprolol(XL)Succ 100 MG Tablet PO (09:12)
[2024-08-21 11:44] LABS: Bedside Glucose 142 mg/dL (74-106)
--- NOTE | 2024-08-21 14:38 | NURSING ---
Resident has rash on arms, abdomen, and back, on medrol dose pack, still c/o itchiness, Dr. Lawrence updated, N.O. hytone 2.5% topical BID PRN
[2024-08-21 16:28] LABS: Bedside Glucose 209 mg/dL (74-106)
[2024-08-21 21:40] LABS: Bedside Glucose 174 mg/dL (74-106)
[2024-08-22] MEDS: Enoxaparin 30 MG/0.3 ML Syringe SC (05:49)
[2024-08-22] MEDS: Levothyroxine 50 MCG Tablet PO (05:49)
[2024-08-22 06:17] LABS: Bedside Glucose 195 mg/dL (74-106)
[2024-08-22 08:24] LABS: Anion Gap 14 (5-15); BUN 29 mg/dL (4-19); BUN/Creat Ratio 20.1 RATIO (10-20); Calcium,Total 9.4 mg/dL (7.6-11.0); Carbon Dioxide 30.5 mmol/L (21.0-32.0); Chloride 96 mmol/L (98-108); Creatinine, Serum 1.43 mg/dL (0.70-1.20); EST Glomerular Filtration Rate 37 (>60); Estimated Creatinine Clearance 25.57 ml/min (50-250); Glucose 188 mg/dL (70-99); Potassium 3.3 mmol/L (3.3-5.1); Sodium Level 140 mmol/L (133-145)
[2024-08-22 09:20] VITALS: BP 164/70; PULSE 68; RESP 14; TEMP 36.4; O2SAT 97
[2024-08-22] MEDS: Insulin Basal Pump 100 UNIT SC ×4 (10:07→22:27)
[2024-08-22 10:10] VITALS: BP 131/63; PULSE 73
[2024-08-22] MEDS: Metoprolol(XL)Succ 100 MG Tablet PO (10:10)
[2024-08-22] MEDS: Ranolazine 500 MG Tablet PO (10:10)
[2024-08-22] MEDS: Calcium Carb/Vitamin D 1 TABLET Tablet 2 TABLET PO ×2 (10:10→18:00)
[2024-08-22] MEDS: Furosemide 40 MG Tablet PO (10:10)
[2024-08-22] MEDS: Cefdinir 300 MG Capsule PO (10:10)
[2024-08-22] MEDS: MethylPREDNISolone DosePak 4 MG BOX PO (10:10)
--- NOTE | 2024-08-22 11:17 | NURSING ---
Offered covid vaccine, VIS provided. Resident declines at this time.
[2024-08-22 12:19] LABS: Bedside Glucose 156 mg/dL (74-106)
[2024-08-22] MEDS: Hydrocortisone 2.5% Crm 1 APPLIC TOPICAL ×2 (12:33→22:29)
--- NOTE | 2024-08-22 15:02 | CASEMGMT ---
Addendum entered by Kim Sullivan 08/22/24 15:21: SW provided resources for life alert, home delivered meals and private duty agencies to assist with housekeeping tasks, per pt's request. Original Note: Social Work SW met with pt to discuss request to DC home. Pt is adlib and IDT agreeable to DC, however, GIFT SHOP CLERK is currently working on upgrading device. Pt is concerned about getting her insulin supplies that were delivered to her home. SW offered to DC 08/25. Pt agreed and has a friend who can transport. SW offered skilled HHC vs OP PT. Pt denied HHC but agreed to OP PT. Provided verbal options. Pt prefers [facility]. SW to place referral. Pt denied DME needs. SW faxed referral to [facility]. Plan: DC home alone 08/25, [facility] PT Kim Sullivan MECHANICAL METER TESTER INSULATION HOSEMAN
[2024-08-22 16:48] LABS: Bedside Glucose 236 mg/dL (74-106)
--- NOTE | 2024-08-22 20:09 | PCM.DC.SUM ---
Providers Date of Admission: 08/17/24 Primary Care Physician: Dr. Celina Dangelo DO Reason For Visit: PNEUMONIA, UTI Diagnosis Discharge Diagnosis (1) Debility: Status: Acute Code(s): R53.81 - Other malaise (2) Weakness: Status: Acute Code(s): R53.1 - Weakness (3) Acute respiratory failure with hypoxia: Status: Acute Code(s): J96.01 - Acute respiratory failure with hypoxia (4) Pneumonia: Status: Acute Code(s): J18.9 - Pneumonia, unspecified organism Qualifiers: Pneumonia type: due to unspecified organism Laterality: unspecified laterality Lung location: unspecified part of lung Qualified Code(s): J18.9 - Pneumonia, unspecified organism (5) Urinary tract infection: Status: Acute Code(s): N39.0 - Urinary tract infection, site not specified (6) Type 1 diabetes mellitus: Status: Chronic Code(s): E10.9 - Type 1 diabetes mellitus without complications Qualifiers: Diabetes mellitus complication status: with hyperglycemia Qualified Code(s): E10.65 - Type 1 diabetes mellitus with hyperglycemia (7) Essential (primary) hypertension: Status: Acute Code(s): I10 - Essential (primary) hypertension (8) Chronic kidney disease, stage 3b: Status: Acute Code(s): N18.32 - Chronic kidney disease, stage 3b (9) Breast cancer: Status: Acute Code(s): C50.919 - Malignant neoplasm of unspecified site of unspecified female breast (10) Osteoporosis: Status: Acute Code(s): M81.0 - Age-related osteoporosis without current pathological fracture (11) Coronary artery disease: Status: Acute Code(s): I25.10 - Atherosclerotic heart disease of [place] coronary artery without angina pectoris (12) B12 deficiency: Status: Acute Code(s): E53.8 - Deficiency of other specified B group vitamins (13) Hyperlipidemia: Status: Chronic Code(s): E78.5 - Hyperlipidemia, unspecified Qualifiers: Hyperlipidemia type: mixed hyperlipidemia Qualified Code(s): E78.2 - Mixed hyperlipidemia (14) Hypothyroidism: Status: Acute Code(s): E03.9 - Hypothyroidism, unspecified (15) Acute heart failure with preserved ejection fraction (HFpEF): Status: Acute Code(s): I50.31 - Acute diastolic (congestive) heart failure Plan 79 year old female with below past medical history hospitalized for weakness, acute respiratory failure with hypoxia 2/2 pneumonia, complicated by urinary tract infection, diffuse drug rash, admitted to TCU with debility, here for rehabilitation, strengthening, prior to discharge home alone. Debility - PT/OT. Pain - Tylenol 1000mg q6 prn pain (1-10). Bowel - senna/colace 1 tablet bid, Magnesium citrate 300mL daily prn. Adult immunization - Adminsiter pneumonia vaccine, covid vaccine, flu vaccine as appropriate. DVT prophylaxis - Lovenox 30mg sc daily. Hyperlipidemia - Atorvastatin 5mg qhs. Calcium deficiency - Calcium D 2 tablets bidcm. Pneumonia/urinary tract infection - Cefdinir 300mg bid thru 08/22/2024. Acute HFpEF - Metoprolol succinate 100mg daily, Aldactone 12.5mg daily, Fuorsemide 40mg bidlx. Hemorrhoids - Anusol HC 25mg rectal bid prn. Hypothyroidism - Levothyroxine 50mcg daily. Drug rash - Medrol dose pack, monitor blood sugars closely and add insulin as needed. Coronary artery disease - Metoprolol succinate 100mg daily, Ranexa 500mg daily. Type 1 Diabetes - Insulin pump, monitor sugars closely, add insulin as needed. Medications at Discharge Home Medications calcium 600 mg (as carbonate)-vitamin D3 12.5 mcg (500 unit) capsule (Calcium with Vit D3) 2 cap PO BID supplement 06/12/22 denosumab 60 mg/mL subcutaneous syringe (Prolia) 60 mg subcut [id number] osteoporosis 06/12/22 ranolazine 500 mg tablet,extended release,12 hr 500 mg PO DAILY heart health #90 tabs 09/10/23 simvastatin 10 mg tablet See Rx Instructions .Route .COMPLEX cholesterol #90 TABLETS 01/07/24 levothyroxine 50 mcg tablet 50 mcg PO DAILY hypothyroidism #90 tabs 04/05/24 metoprolol succinate 100 mg tablet,extended release 24 hr 100 mg PO DAILY for blood pressure #90 TABLETS 06/22/24 everolimus (antineoplastic) 10 mg tablet 10 mg PO cancer 07/04/24 exemestane 25 mg tablet 25 mg PO DAILY 07/04/24 phenylephrine-shark liver oil-mineral oil-petrolatum rectal ointment (Hemorrhoidal ointment) 1 applic NM TID PRN hemorrhoids 08/17/24 Insulin Basal Pump (Pt's Own) [Pump, Basal] 100 unit subcut 4X/DAY ##0 08/22/24 furosemide 40 mg tablet 40 mg PO DAILY 30 days #30 tabs 08/22/24 hydrocortisone 2.5 % topical cream 1 applic topical BID PRN PRN itchiness 30 days #45 grams 08/22/24 Hospital Course Operations None Procedures None Summary of Care Provided Minutes Spent on Discharge: 35 Hospital Course: 79 year old female with below past medical history hospitalized for weakness, acute respiratory failure with hypoxia 2/2 pneumonia, complicated by urinary tract infection, diffuse drug rash, admitted to TCU with debility, here for rehabilitation, strengthening, prior to discharge home alone. Diffuse drug rash treated with Medrol dose pack. Discharge home alone 08/25/2024, [facility]. Physical Exam Const alert General Appearance: cooperative HEENT normocephalic Eyes PERRL and EOMs intact bilaterally Neck supple, no JVD and no carotid bruits Resp normal respiratory effort, normal air movement and clear to auscultation bilaterally Cardio regular rate and regular rhythm GI normal to inspection, nondistended, normoactive bowel sounds, non-tender and non-distended Extremity normal capillary refill General Extremity: Negative for edema Skin no rashes or lesions noted General Skin Exam: no breakdown Psych affect normal Appearance: appropriate Weight / BMI Weight Weight: 60.781 kg Body Mass Index (BMI) 27.0 ABG / Lab / Microbiology Data 08/18/24 05:30 08/22/24 05:45 Laboratory: Laboratory Results - last 24 hr 08/21/24 21:17: POC Glucose 174 H 08/22/24 05:45: Sodium 140, Potassium 3.3, Chloride 96 L, Carbon Dioxide 30.5, Anion Gap 14, BUN 29 H, Creatinine 1.43 H, Estim Creat Clear Calc 25.57 L, Est GFR (MDRD) Non-Af 37 L, BUN/Creatinine Ratio 20.1 H, Glucose 188 H, Calcium 9.4 08/22/24 05:49: POC Glucose 195 H 08/22/24 11:25: POC Glucose 156 H 08/22/24 16:25: POC Glucose 236 H D/C Instructions Discharge Diet: No restrictions Discharge Activity: Return to Normal Activity, May Shower and Use Walker Weight Bearing Status: Weight bearing as tolerated Call your doctor if you observe: Fever of 101 or Higher, Inability to urinate, Inability to have a bowel movement, Shortness of breath, Dizziness, Fainting spells, Swelling in the ankles, Chest pain and Uncontrolled pain DC O2, CPAP, BIPAP Needs Home O2 Discharge instructions: No Additional Instructions: Discharge home alone 08/25/2024, [facility] PT. Meaningful Use Info Meaningful Use Meaningful Use Diagnoses (Choose all that apply): None applicable Ischemic Stroke Statin Dosing Therapy Reference: STATIN DOSE THERAPY REFERENCE: * Patients > 75 years receive moderate or high dose statin therapy. * Patients 75 years or YOUNGER should receive HIGH intensity statin dose unless contraindicated. You will be required to document reason for non-treatment if statin daily dose does not meet guidelines. HIGH DOSE STATIN THERAPY DAILY Atorvastatin > than or = to 40 mg Rosuvastatin > than or = to 20 mg Amlodipine + Atorvastatin > than or = to 2.5/40 mg Ezetimibe + Simvastatin 10/80 mg Simvastatin 80mg Discharge Plan Admission Admit Date/Time: 08/17/24 14:42 Primary Reason for Your Visit: Debility. Attending Provider: Xavier Lawrence Chi Primary Care Provider: Celina Dangelo Instructions Additional Instructions / Restrictions: Discharge home alone 08/25/2024, [facility] PT. Discharge Orders/Prescriptions Prescriptions: New furosemide 40 mg Tablet 40 mg PO DAILY 30 Days Qty: 30 0RF hydrocortisone 2.5 % Cream 1 applic topical BID PRN PRN (Reason: itchiness) 30 Days Qty: 45 0RF Protocol: *Topical Application Instructions APPLICATION INSTRUCTIONS: PRN to rash area Insulin Basal Pump (Pt's Own) [Pump, Basal] 100 unit subcut 4X/DAY Qty: 0 0RF Continued Prolia 60 mg/mL syringe 60 mg SC [id number] Rx Instructions: every 3 month now. last in September calcium carbonate-vitamin D3 [Calcium 600 with Vitamin D3] 600 mg-12.5 mcg (500 unit) capsule 2 cap PO BID simvastatin 10 mg tablet See Rx Instructions .ROUTE .COMPLEX Qty: 90 3RF Dose Instruction: TAKE 1 TABLET AT BEDTIME Rx Instructions: TAKE 1 TABLET AT BEDTIME everolimus (antineoplastic) 10 mg tablet 10 mg PO Patient Comments: [NO ORIGINAL SIG] exemestane 25 mg tablet 25 mg PO DAILY Hemorrhoidal Ointment 1 applic NM TID PRN (Reason: hemorrhoids) ranolazine 500 mg tablet extended release 12 hr 500 mg PO DAILY Qty: 90 3RF levothyroxine 50 mcg tablet 50 mcg PO DAILY Qty: 90 3RF metoprolol succinate 100 mg tablet extended release 24 hr 100 mg PO DAILY Qty: 90 3RF Discontinued cyanocobalamin (vitamin B-12) 1,000 mcg/mL solution 1,000 mcg IM QMONTH insulin aspart U-100 [Novolog U-100 Insulin aspart] 100 unit/mL solution 100 unit subcut DAILY Qty: 90 3RF Rx Instructions: via insulin pump acetaminophen 325 mg Tablet 650 mg PO Q6H PRN PRN (Reason: Pain -10/22 or Fever) Qty: 0 0RF metoprolol succinate 50 mg Tablet Extended Release 24 Hr 50 mg PO BID Qty: 0 0RF insulin lispro [Humalog KwikPen Insulin] 100 unit/mL Insulin Pen See Protocol subcut ACHS Qty: 0 0RF Protocol: 3. Sliding Scale Insulin Med Dosing Condition: 150-189 mg/dl = 1 unit Condition: 190-229 mg/dl = 2 units Condition: 230-269 mg/dl = 3 units Condition: 270-309 mg/dl = 4 units Condition: 310-349 mg/dl = 5 units Condition: 350-399 mg/dl = 6 units Condition: 400-449 mg/dl = 7 units Condition: Greater than 449 call physician Protocol Text: Suggested for: - Patients on Total Daily Insulin Dose of 37-55 units - Obese, infected, or steroid patients MEDIUM DOSING ALGORITHIM furosemide [Lasix] 40 mg tablet 40 mg PO BID Qty: 60 0RF spironolactone 25 mg tablet 12.5 mg PO DAILY 30 Days Qty: 30 0RF Hemorrhoidal Ointment 1 applic NM TID Qty: 28.4 0RF cefdinir 300 mg capsule 300 mg PO BID Rx Instructions: take for 5 days Referrals / Follow Up: Celina Dangelo DO [Primary Care Provider] - (pt will make own appt ) Disposition Disposition (needs filled in before D/C Order can be placed): Home, Self Care
[2024-08-22 21:32] LABS: Bedside Glucose 160 mg/dL (74-106)
[2024-08-23] MEDS: Levothyroxine 50 MCG Tablet PO (06:01)
[2024-08-23] MEDS: Enoxaparin 30 MG/0.3 ML Syringe SC (06:02)
[2024-08-23] MEDS: Insulin Basal Pump 100 UNIT SC ×4 (06:04→21:10)
--- NOTE | 2024-08-23 06:07 | NURSING ---
Patients fasting blood sugar was 81, patient requested and received 4oz of apple juice, denies any c/o hypoglycemia.
[2024-08-23 06:13] LABS: Bedside Glucose 81 mg/dL (74-106)
[2024-08-23 08:05] VITALS: BP 134/60; PULSE 72; RESP 16; TEMP 36.9; O2SAT 95
[2024-08-23] MEDS: Calcium Carb/Vitamin D 1 TABLET Tablet 2 TABLET PO ×2 (08:08→17:19)
[2024-08-23 08:09] VITALS: PULSE 72
[2024-08-23] MEDS: Metoprolol(XL)Succ 100 MG Tablet PO (08:09)
[2024-08-23] MEDS: Furosemide 40 MG Tablet PO (08:09)
[2024-08-23] MEDS: Ranolazine 500 MG Tablet PO (08:09)
--- NOTE | 2024-08-23 08:11 | NURSING ---
Patient self administered 4.5 units of insulin this morning with breakfast via own insulin pump.
[2024-08-23 10:42] VITALS: BMI 26.4
[2024-08-23 12:18] LABS: Bedside Glucose 103 mg/dL (74-106)
[2024-08-23 16:37] LABS: Bedside Glucose 99 mg/dL (74-106)
--- NOTE | 2024-08-23 17:42 | NURSING ---
Updated Dr. Lawrence on patient's BGTs. Patient finished with medrol dose pack. BGTs have improved and patient refusing Lispro 10units TIDAC. Patient manages own BS's and self administers own insulin via insulin pump. New order entered by Dr. Lawrence to DC Lispro.
[2024-08-23] MEDS: Hydrocortisone 2.5% Crm 1 APPLIC TOPICAL (21:11)
[2024-08-23 21:17] LABS: Bedside Glucose 160 mg/dL (74-106)
[2024-08-24] MEDS: Levothyroxine 50 MCG Tablet PO (06:05)
[2024-08-24] MEDS: Enoxaparin 30 MG/0.3 ML Syringe SC (06:06)
[2024-08-24] MEDS: Insulin Basal Pump 100 UNIT SC ×2 (06:06→17:07)
[2024-08-24 06:12] LABS: Bedside Glucose 103 mg/dL (74-106)
[2024-08-24 07:56] VITALS: BP 123/59; PULSE 71; RESP 16; TEMP 36.6; O2SAT 99
[2024-08-24 08:01] VITALS: PULSE 71
[2024-08-24] MEDS: Furosemide 40 MG Tablet PO (08:01)
[2024-08-24] MEDS: Ranolazine 500 MG Tablet PO (08:01)
[2024-08-24] MEDS: Metoprolol(XL)Succ 100 MG Tablet PO (08:01)
[2024-08-24] MEDS: Calcium Carb/Vitamin D 1 TABLET Tablet 2 TABLET PO ×2 (08:01→17:04)
--- NOTE | 2024-08-24 08:03 | NURSING ---
pt administered 4.7 units from own insulin pump blood sugar of 103 this AM.
--- NOTE | 2024-08-24 08:19 | NURSING ---
Client Representative Note; MDS for 08/24/2024 Complete
[2024-08-24] MEDS: CARBOXYMETHYLCELLULOSE SODIUM 15 ML OPHTH DROPS 1 DRP EACH EYE ×4 (08:58→21:10)
--- NOTE | 2024-08-24 11:01 | CASEMGMT ---
Social Work IDT met with patient and son participated by phone for care plan meeting. Discussed patient's progress in PT/OT/SN. Confirmed DC date 08/25. Home with [facility] and provided with appts. No other needs noted. Kim Sullivan DIGITAL STRATEGY DIRECTOR LINE SERVICE ATTENDANT
--- NOTE | 2024-08-24 11:07 | NURSING ---
Pt BS 51, pt eating kaye crackers, drinking apple juice. pt resting in chair. call light in reach. will recheck sugar.
[2024-08-24 11:32] LABS: Bedside Glucose 59 mg/dL (74-106)
[2024-08-24 11:32] LABS: Bedside Glucose 51 mg/dL (74-106)
--- NOTE | 2024-08-24 12:03 | CASEMGMT ---
BIMS () and PHQ2 () interviews completed on this date for MDS assessment. CLARENCE Myers
--- NOTE | 2024-08-24 14:00 | NURSING ---
pt had checked her own sugar 180 post prandial at lunch to be sure sugars were WNL
[2024-08-24 17:16] LABS: Bedside Glucose 238 mg/dL (74-106)
[2024-08-24 20:15] VITALS: BP 102/48; PULSE 87; RESP 16; TEMP 36.5; O2SAT 96
[2024-08-24] MEDS: Hydrocortisone 2.5% Crm 1 APPLIC TOPICAL (21:10)
[2024-08-24 21:49] LABS: Bedside Glucose 125 mg/dL (74-106)
[2024-08-25] MEDS: Levothyroxine 50 MCG Tablet PO (05:55)
[2024-08-25] MEDS: Enoxaparin 30 MG/0.3 ML Syringe SC (05:55)
[2024-08-25 06:05] LABS: Hematocrit 30.5 % (37-47); Hemoglobin 9.9 g/dL (12.0-15.0); Mean Corp Hgb Conc 32.5 g/dL (32-36); Mean Corpuscular Hgb 31.3 pg (27.0-32.0); Mean Corpuscular Volume 96.5 fL (81-99); Mean Platelet Vol. 9.9 fl (6.2-12.0); POSITIVE COUNT YES; POSITIVE MORPHOLOGY YES; Platelet Count 304 K/mm3 (150-450); RBC Distribution Width CV 15.8 % (11.6-14.6); RBC Distribution Width SD 52.3 fl (35.1-43.9); Red Blood Count 3.16 M/mm3 (4.2-5.4); White Blood Count 9.2 K/mm3 (4.4-11.0)
[2024-08-25 06:13] LABS: Differential Indicated MANUAL DIFF
[2024-08-25 06:24] LABS: Bedside Glucose 105 mg/dL (74-106)
[2024-08-25 06:44] LABS: Anion Gap 11 (5-15); BUN 27 mg/dL (4-19); BUN/Creat Ratio 19.6 RATIO (10-20); Calcium,Total 10.2 mg/dL (7.6-11.0); Carbon Dioxide 34.7 mmol/L (21.0-32.0); Chloride 96 mmol/L (98-108); Creatinine, Serum 1.38 mg/dL (0.70-1.20); EST Glomerular Filtration Rate 39 (>60); Estimated Creatinine Clearance 26.23 ml/min (50-250); Glucose 69 mg/dL (70-99); Potassium 3.5 mmol/L (3.3-5.1); Sodium Level 142 mmol/L (133-145)
[2024-08-25 06:45] LABS: Eosinophil 21 % (0-5); Lymphocyte 15 % (19-41); Metamyelocyte 2 % (0-1); Monocyte 10 % (0-10); Myelocyte 1 % (0-0); Neutrophil-Segmented 51 % (47-70); Nucleated Red Bld Cells,Manual 1 % (0-5); Total Cells Counted 100 (MANUAL DIFF)
[2024-08-25 06:48] LABS: Absolute Neutrophil Count 4.7 X10^3/uL (2.0-7.7)
[2024-08-25 06:49] LABS: Absolute Lymphocyte Count 1.38 X10^3/uL (0.83-4.51); Platelet Estimate ADEQUATE (ADEQ); Smudge Cells 1+
[2024-08-25 06:50] LABS: Anisocytosis 1+; Pathologist Review May foll; Polychromasia 2+
[2024-08-25 08:35] VITALS: BP 105/50; PULSE 78
[2024-08-25] MEDS: Ranolazine 500 MG Tablet PO (08:35)
[2024-08-25] MEDS: Furosemide 40 MG Tablet PO (08:35)
[2024-08-25] MEDS: Metoprolol(XL)Succ 100 MG Tablet PO (08:35)
[2024-08-25] MEDS: Calcium Carb/Vitamin D 1 TABLET Tablet 2 TABLET PO (08:35)
--- NOTE | 2024-08-25 10:38 | MDS.RN ---
Information for the MDS was obtained from review of the clinical record, interview of resident, staff, and direct observation of resident?s care.
== END 2024-08-25 11:06 | disposition home or self-care (01) | DRG 193 ==
PROVIDERS: Admitting Provider Family Medicine Geriatric Medicine; PCP Family Medicine; Referring Provider Family Medicine Geriatric Medicine; Visit Provider Family Medicine Geriatric Medicine
DX: J18.9 Pneumonia, unspecified organism (principal); I50.31 Acute diastolic (congestive) heart failure; I13.0 Hypertensive heart and chronic kidney disease with heart failure and stage 1 through stage 4 chronic kidney disease, or unspecified chronic kidney disease; N39.0 Urinary tract infection, site not specified; C50.912 Malignant neoplasm of unspecified site of left female breast; E10.22 Type 1 diabetes mellitus with diabetic chronic kidney disease; N18.32 Chronic kidney disease, stage 3b; E03.9 Hypothyroidism, unspecified; E53.8 Deficiency of other specified B group vitamins; E78.2 Mixed hyperlipidemia; E10.65 Type 1 diabetes mellitus with hyperglycemia; E10.42 Type 1 diabetes mellitus with diabetic polyneuropathy; Z79.4 Long term (current) use of insulin; I25.10 Atherosclerotic heart disease of native coronary artery without angina pectoris; L27.0 Generalized skin eruption due to drugs and medicaments taken internally; Z79.890 Hormone replacement therapy; Z79.899 Other long term (current) drug therapy; Z96.41 Presence of insulin pump (external) (internal); T45.1X5D Adverse effect of antineoplastic and immunosuppressive drugs, subsequent encounter; M81.0 Age-related osteoporosis without current pathological fracture
CPT/HCPCS: 36415; 80048; 80061; 82962; 85025; 97110; 97116; 97162; 97166; 97530; 97535; 97802; A4216

== ENCOUNTER 2024-08-26 11:42 | Outpatient (RCR) | payer MEDICARE, OTHER, SELFPAY ==
--- NOTE | 2024-08-26 12:42 | HP.PTEVAL_ITS ---
Patient's Visit Information Visit Information Visit Information: BASSAM JAIN is a 79 year old F referred to Physical Therapy by Dr. Xavier Lawrence MD with a diagnosis of Generalized weakness. Date of Evaluation: 08/26/24 Physical Therapist: Karel Styles, DPT, OCS, CSCS Visit Plan Frequency: 3x /Week Duration: 4-6 Weeks Plan: 3x/week for 3-6 weeks(3 to start) Pt to be doing frequent short walks at home with cane Treat with train and progress LE, core and postural strength program to I HEP Gait and functional ex and stair training to progress activity. Subjective Subjective: In hospital for pneumonia in August 14 due to weakness. They treated her with IV antibiotic. That helpd and was in hospital until yesterday for two weeks. Still very tired. Live alone on one story, one step to enter/exit no problem. Drives from [place] the street herself. Use cane to get around now but not needed prior to pneumonia,. Spends day going to appointments, motnhly meetings, housework, fundraising. 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 No regular ex. Sleep is easy but that is all I want to do. Not employed. No spinning. Has DM, no obvious neuropathy. Has rollator at home. Difficulty reading since hospital stay with L eye but will talk with doctor about that on Thursday Objective Objective: 68 HR manually today, spO2 not working. Walks slowly with cane into PT with short step and hesitant weight shift but mod I. LE AROM WFL, strength at 3+ in hips and core, 4- in kns and 4 in ankles without pain sensation WNL to gross light touch in B LE. reflexes 2/3 patella and achilles coordination to reciprocal to and heel tap slow. Flat affct but seems motivated and willing. Balance/Special Test Scores Functional Gait Assessment Score: 23 % Disability: 23.3400 CATSIB Score (Max score 120 seconds): 120 Lower Extremity Functional Score: 32 TUG Test Time Seconds: 27 30 Second Chair Rise Test Seconds: 8 Goals Goal 1:: 12 on 30 SSTS adn 15 or better on TUG to show improved mobility Goal Time Frame: 4-6 Weeks Goal 2:: Pt feel 90% back to normal activity including volunteer work Goal Time Frame: 4-6 Weeks Goal 3:: I appropriate HEp to continue building strength Goal Time Frame: 4-6 Weeks Goal 4:: FGA Goal Time Frame: 4-6 Weeks Rehabilitation Potential Physical Therapy Diagnosis: weakness and poor weight shift effecting function Rehabilitation Potential: Good Anticipated Interventions Patient/Client Instruction: Educate patient on: Condition and Plan of Care For the Purpose of:: To improve nutrient delivery to tissue, To improve muscle performance and motor function, To increase tolerance to activity/condition/position, To improve ability of physical actions for home/community/work/leisure and To improve gait and locomotor functions Therapeutic Exercise to Include: Strength training, Postural training and Gait and locomotor training For the Purpose of:: To decrease pain, To increase ROM, To improve nutrient delivery to tissue, To improve muscle performance and motor function, To increase tolerance to activity/condition/position, To improve ability of physical actions for home/community/work/leisure, To improve gait and locomotor functions and To improve safety Text: Thank you for the opportunity to evaluate your patient. For Medicare and Medicare HMO plans, please review the plan of care and approve it. It will need to be FAXED BACK to us at [phone] for Medicare purposes. For Medicare only, by signing this I certify the plan of care. Please let me know if there are questions or concerns regarding this plan of care. Physician Signature: D ate:
--- NOTE | 2024-10-20 16:01 | HP.PT.NRP ---
Patient Information Patient Information: BASSAM JAIN was seen in my office for initial evaluation on 08/26/24. The following Plan of Care was established for this patient: POC Established Initial Frequency: 3x /Week Initial Duration: 4-6 Weeks Anticipated Interventions Patient/Client Instruction: Educate patient on: Condition and Plan of Care For the Purpose of:: To improve nutrient delivery to tissue, To improve muscle performance and motor function, To increase tolerance to activity/condition/position, To improve ability of physical actions for home/community/work/leisure and To improve gait and locomotor functions Therapeutic Exercise to Include: Strength training, Postural training and Gait and locomotor training For the Purpose of:: To decrease pain, To increase ROM, To improve nutrient delivery to tissue, To improve muscle performance and motor function, To increase tolerance to activity/condition/position, To improve ability of physical actions for home/community/work/leisure, To improve gait and locomotor functions and To improve safety Last Seen Last Seen: This patient was last seen in our office 08/26/24. Pertinent comments regarding their Physical therapy will appear below: Pt seen IE and POC established. she did not attend any further visits. It has been over 6 weeks and I will discontinue from my care. At this point I will be discontinuing this patient from physical therapy. I would be happy to see this patient again in the future if found appropriate by the physician. Thank you! Karel Styles, DPT, OCS, CSCS Balance/Gait/Functional tests Balance/Special Test Scores Functional Gait Assessment Score: 23 % Disability: 23.3400 CATSIB Score (Max score 120 seconds): 120 Lower Extremity Functional Score: 32 TUG Test Time Seconds: 27 Tug Test: 20-30sec.=variable mobility 30 Second Chair Rise Test Seconds: 8
== END 2024-08-26 19:00 | disposition home or self-care (01) ==
LOC: PT 11:42
PROVIDERS: PCP Family Medicine; Referring Provider Family Medicine Geriatric Medicine; Visit Provider Family Medicine Geriatric Medicine
DX: R53.1 Weakness (principal)
CPT/HCPCS: 97161

== ENCOUNTER 2024-08-29 12:47 | Observation (INO) | payer MEDICARE, OTHER, SELFPAY ==
[2024-08-29] VITALS (9 sets, daily range): BP systolic 118–162; BP diastolic 51–78; PULSE 67–77; RESP 14–17; TEMP 36.2–36.4; O2SAT 95–100; BMI 26.6; BMI 27.1
--- NOTE | 2024-08-29 13:31 | EKG12_ITS ---
Test Reason : GENERAL Blood Pressure : */* mmHG Vent. Rate : 70 BPM Atrial Rate : 70 BPM P-R Int : 184 ms QRS Dur : 86 ms QT Int : 454 ms P-R-T Axes : 49 19 16 degrees QTcB Int : 490 ms Normal sinus rhythm Prolonged QT Abnormal ECG When compared with ECG of 13-Aug-2024 21:14, QT has lengthened Confirmed by DANIAL RÍOS, JONA ([id number]), video editor MELVIN BLACK ([id number]) on 08/31/2024 12:58:05 PM Referred By: Huang Almaraz Confirmed By: JONA BARROW MD
[2024-08-29 13:37] LABS: Absolute Lymphocyte Count 1.19 X10^3/uL (0.83-4.51); Absolute Neutrophil Count 6.4 X10^3/uL (2.0-7.7); Basophil# 0.05 X10^3/uL; Basophil% 0.6 % (0-1); Eosinophil# 0.54 X10^3/uL; Hematocrit 31.7 % (37-47); Hemoglobin 10.2 g/dL (12.0-15.0); Lymphocyte # 1.19 X10^3/ul (0.83-4.51); Lymphocyte % 13.2 % (19-41); Mean Corp Hgb Conc 32.2 g/dL (32-36); Mean Corpuscular Hgb 31.3 pg (27.0-32.0); Mean Corpuscular Volume 97.2 fL (81-99); Mean Platelet Vol. 10.3 fl (6.2-12.0); Monocyte# 0.83 X10^3/uL; Monocyte% 9.2 % (0-10); NRBC Flagged by Analyzer 0 % (0-5); Neutrophil # 6.35 X10^3/uL (2.7-7.7); Neutrophil % 70.2 % (47-70); Platelet Count 239 K/mm3 (150-450); RBC Distribution Width CV 16.6 % (11.6-14.6); RBC Distribution Width SD 57.2 fl (35.1-43.9); Red Blood Count 3.26 M/mm3 (4.2-5.4)
[2024-08-29 14:07] LABS: ALB/GLOB Ratio 1.5 RATIO (0.9-2.4); AST(SGOT) 55 U/L (<=31); Alanine Aminotransfer ALT/SGPT 52 U/L (<=34); Albumin, Serum 3.8 g/dL (3.4-4.8); Alkaline Phosphatase 70 U/L (35-104); Anion Gap 14 (5-15); BUN 19 mg/dL (4-19); BUN/Creat Ratio 9.5 RATIO (10-20); Calcium,Total 10.7 mg/dL (7.6-11.0); Carbon Dioxide 32.4 mmol/L (21.0-32.0); Chloride 91 mmol/L (98-108); Creatinine, Serum 1.96 mg/dL (0.70-1.20); EST Glomerular Filtration Rate 25 (>60); Estimated Creatinine Clearance 18.53 ml/min (50-250); Globulin 2.6 g/dL (2.2-4.2); Glucose 152 mg/dL (70-99); Potassium 3.6 mmol/L (3.3-5.1); Protein, Total 6.4 g/dL (5.9-8.4); Sodium Level 138 mmol/L (133-145); Total Bilirubin 0.52 mg/dL (0.00-1.30)
--- NOTE | 2024-08-29 14:35 | CT_ITS ---
EXAM: BRAIN/HEAD WITHOUT CONTRAST CLINICAL HISTORY: FALL, HEAD INJURY COMPARISON: 03/2021 TECHNIQUE: Noncontrast head CT performed. Sagittal and coronal reconstructions FINDINGS: Mild global volume loss and chronic small-vessel ischemic change. No acute hemorrhage. No mass effect. No midline shift. No acute skull fracture. Paranasal sinuses mastoids are clear. Vascular calcification is noted. CT/Brain/Head without Contrast IMPRESSION: Senescent changes. No evidence of acute intracranial hemorrhage Reading Location: [id number]
[2024-08-29 15:04] LABS: Mucous, Urine 0 SEEN /hpf (<or=2+); Squamous Epithelial Cells - UA 0 SEEN /hpf (5-10)
[2024-08-29 15:06] LABS: Color, Urine Yellow (Yellow); Glucose, Dipstick 50 mg/dl (Normal); Ketone-Dipstick 15 mg/dl (Negative); Leukocyte Esterase-Dipstick 25 /ul (Negative); Nitrite-Dipstick Negative (Negative); Occult Blood-Urine Negative /ul (Negative); Protein-Dipstick 15 mg/dl (Negative); Specific Gravity, Urine 1.015 (1.002-1.030); Urine Bilirubin Dipstick Negative (Negative); Urine Clarity Sl. Cloudy (Clear); Urine Urobilinogen Normal (Normal)
[2024-08-29 15:36] LABS: Bacteria 1+ /hpf (None Seen); Red Blood Cells-Urine 0 SEEN /hpf (0-5); White Blood Cells 0-5 SEEN /hpf (0-5)
[2024-08-29 15:37] LABS: Amorphous Sediment 2+ PHOS
--- NOTE | 2024-08-29 15:57 | EX.ED.DYSGE1 ---
HPI History of Present Illness Chief Complaint: Hypoglycemia Narrative Narrative: Patient is an 79-year-old female with history of metastatic breast cancer, type 1 diabetes mellitus and recent hospitalization for pneumonia, urinary tract infection, respiratory failure who was then transferred to the TCU. She was treated for drug rash with a Medrol Dosepak well during her hospitalization. She was discharged home on 08/25. She states since he has been home she has got weaker and weaker and is now so weak she cannot even get up and eat anything. She has been able to drink but notes that has been less. States has been drinking some type of sugar-free electrolyte solution. She has been having chills since her discharge home. Her son who came in from [place] today found her and she was unresponsive. EMS was called and she was found to have a blood sugar Of 43. D10 was given and her blood sugar went up to 230. Patient does have an insulin pump. Patient states that she was supposed to go to nursing facility but they would not let her have her insulin pump at [facility] so she decided to go home instead. Patient has no acute complaints at this time states she just feels very weak. Notes she has been falling. States she is a chronic weakness to her right leg which has been worse. She states she fell out of bed the other day. Think she has hit her head with some of these falls. She is not on any blood thinners. 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 Insulin pump titration Presence of insulin pump Diabetic polyneuropathy associated with type 1 diabetes mellitus Metastatic breast cancer Breast cancer, left Type 1 diabetes mellitus Diabetes mellitus Estrogen receptor positive status (ER+) Disproportion of reconstructed breast Acquired absence of left breast and nipple Breast ptosis Breast asymmetry Inversion of left nipple Invasive lobular carcinoma of left breast in female Vision problems Osteoporosis Osteoarthritis Kidney disease Hearing problem Cataracts, bilateral Back problem Hyperlipidemia Essential (primary) hypertension Facet arthropathy, lumbar Segmental and somatic dysfunction of pelvic region Segmental and somatic dysfunction of lumbar region Hyperthyroidism Environmental allergies Acute renal failure Arthritis Home Medications ?Medication ?Instructions ?Recorded ?Last Taken ?Type calcium 600 mg (as 2 cap PO BID supplement 06/12/22 08/28/24 History carbonate)-vitamin D3 12.5 mcg (500 unit) capsule (Calcium with Vit D3) denosumab 60 mg/mL subcutaneous 60 mg subcut [id number] osteoporosis 06/12/22 06/23/24 History syringe (Prolia) ranolazine 500 mg tablet,extended 500 mg PO DAILY heart health #90 09/10/23 08/28/24 Rx release,12 hr tabs simvastatin 10 mg tablet See Rx Instructions .Route 01/07/24 Unknown Rx .COMPLEX cholesterol #90 TABLETS levothyroxine 50 mcg tablet 50 mcg PO DAILY hypothyroidism #90 04/05/24 08/28/24 Rx tabs metoprolol succinate 100 mg 100 mg PO DAILY for blood pressure 06/22/24 08/28/24 Rx tablet,extended release 24 hr #90 TABLETS everolimus (antineoplastic) 10 mg 10 mg PO cancer 07/04/24 Unknown History tablet Held on 08/29/24. Instructions: MD Ordered exemestane 25 mg tablet 25 mg PO DAILY EXCESS ESTROGEN 07/04/24 08/28/24 History furosemide 40 mg tablet 40 mg PO DAILY EDEMA 30 days #30 08/22/24 08/28/24 Rx tabs Insulin Basal Pump (Pt's Own) See Rx Instructions subcut .COMPLEX 08/29/24 08/29/24 History [Pump, Basal] artifi.tears(hypromellose)(PF) 1.7 2 drp EACH EYE Q2H PRN dry eye(s) 08/29/24 Unknown History % eye drops with applicator hydrocortisone 2.5 % topical cream 1 applic topical BID PRN itchiness 08/29/24 08/28/24 History Allergy/AdvReac Type Severity Reaction Status Date / Time codeine AdvReac Vomiting Verified 08/29/24 12:55 hydrocodone AdvReac Vomiting Verified 08/29/24 12:55 meperidine (From Demerol) AdvReac Vomiting Verified 08/29/24 12:55 Family History Father Myocardial infarction <55 Heart disease Hypertension High cholesterol Mother Osteoporosis Skin cancer Surgical History History of modified radical mastectomy of left breast (08/05/19) History of left breast biopsy (06/2019) Status post right breast biopsy History of left heart catheterization (10/30/06) History of tubal ligation Social History household members: none Smoking Status: Never smoker alcohol intake: current alcohol intake frequency: holidays/special occasions only substance use type: does not use caffeine: Yes Type: coffee Number of servings: 2 additional social history: DOES USE ASPIRIN DOES NOT USE IBUPROFEN EXAM Physical Exam Const Vital Signs: 08/29/24 12:49 08/29/24 12:55 08/29/24 13:55 Temperature 97.4 F L 97.4 F L 97.5 F L Temperature Source Oral Oral Oral Pulse Rate 75 69 76 Respiratory Rate 17 14 17 Blood Pressure 162/78 H 162/78 H 133/72 H Blood Pressure Mean 106 106 92 Pulse Ox 98 100 98 Oxygen Delivery Method Room Air Room Air Room Air 08/29/24 14:00 08/29/24 14:48 08/29/24 16:00 Temperature 97.5 F L Temperature Source Oral Pulse Rate 75 72 67 Respiratory Rate 14 17 14 Blood Pressure 133/72 H 153/67 H 118/53 L Blood Pressure Mean 92 95 74 Pulse Ox 98 99 95 Oxygen Delivery Method Room Air Room Air Room Air Positive well nourished and well developed General Appearance ED: well developed and NAD HEENT Reports TM's clear and dry mucous membranes Negative for trauma Tympanic Membrane ED: Yes TM's clear Mouth ED: Yes dry mucous membranes Mouth: dry mucous membranes Eyes PERRL Neck supple Chest Wall inspection of chest normal Resp normal respiratory effort and clear to auscultation bilaterally Cardio regular rate and regular rhythm GI normal to inspection, nondistended, normoactive bowel sounds Neuro oriented x3 Neuro Narrative: Weakness of the right lower extremity with compared to the left?patient states this is chronic. No drift of the upper extremities however she is slightly tremulous. Sensorium / Orientation: alert Motor Exam: general weakness Skin Skin Narrative: Peeling of the facial skin. Relatively diffuse micropapular rash on the chest and extremities. MDM MDM MDM Narrative Medical decision making narrative: Patient valuate for generalized weakness, falls and hypoglycemia. She states she is not been eating or drinking well because of weakness. She lives home alone. She is declined since leaving the TCU and feels that her weakness is getting worse every day. Patient did receive dextrose prior to my evaluation and appears nontoxic. Will monitor her blood sugar in the emergency room. Differential includes recurrent dehydration, debility, THOMAS, new infection such as pneumonia or urinary tract infection, arrhythmia as well as traumatic intracranial process. CBC largely normal. She has a chronic but stable anemia with hemoglobin of 10.2. No leukocytosis or left shift. CMP shows hypochloremia with a chloride of 91, chronic appearing elevation of her bicarb of 32 and worsening renal insufficiency. Patient's creatinine was 1.38 on 08/25 but today is 1.96. Glucose 152 and at this time. She has a very mild transaminitis which is nonspecific. Urinalysis is not consistent with infection but does show [address] of the brain obtained does not show any acute intracranial process. EKG shows not show any acute ischemic changes. Given patient's general debility and inability to even adequately take enough nutrition which is now causing her hypoglycemia as well as worsening renal function I do think she would benefit for admission. Is given IV fluids in the emergency room. Case discussed with hospitalist, Dr. Almaraz. Patient is agreeable with this plan of care. Lab Data Attestation: I reviewed the patient's lab results. Labs: Laboratory Results - last 24 hr 08/29/24 08/29/24 13:00 14:58 WBC 9.0 RBC 3.26 L Hgb 10.2 L Hct 31.7 L MCV 97.2 MCH 31.3 MCHC 32.2 RDW Std Deviation 57.2 H RDW Coeff of Alex 16.6 H Plt Count 239 MPV 10.3 Immature Gran % (Auto) 0.800 Neut % (Auto) 70.2 H Lymph % (Auto) 13.2 L [place] % (Auto) 9.2 Eos % (Auto) 6.0 H Baso % (Auto) 0.6 Absolute Neuts (auto) 6.4 Absolute Lymphs (auto) 1.19 Nucleated RBC % 0 Sodium 138 Potassium 3.6 Chloride 91 L Carbon Dioxide 32.4 H Anion Gap 14 BUN 19 Creatinine 1.96 H Estim Creat Clear Calc 18.53 L Est GFR (MDRD) Non-Af 25 L BUN/Creatinine Ratio 9.5 L Glucose 152 H Calcium 10.7 Total Bilirubin 0.52 AST 55 H ALT 52 H Alkaline Phosphatase 70 Total Protein 6.4 Albumin 3.8 Globulin 2.6 Albumin/Globulin Ratio 1.5 Urine Color Yellow Urine Clarity Sl. Cloudy Urine pH 8.0 Ur Specific [place] 1.015 Urine Protein 15 H Urine Glucose (UA) 50 H Urine Ketones 15 H Urine Occult Blood Negative Urine Nitrite Negative Urine Bilirubin Negative Urine Urobilinogen Normal Ur Leukocyte Esterase 25 H Urine RBC 0 SEEN Urine WBC 0-5 SEEN Ur Squamous Epith Cells 0 SEEN Amorphous Sediment 2+ PHOS Urine Bacteria 1+ Urine Mucus 0 SEEN Radiography Diagnostic Testing: Clinical Impression(s) from Imaging Studies Brain CT 08/29/24 14:35 IMPRESSION: Senescent changes. No evidence of acute intracranial hemorrhage Reading Location: [facility] Rhythm Strip Rhythm Strip: Sinus Rhythm Rate: 70 Ectopy: None EKG Initial EKG: Attestation: I personally reviewed and interpreted this EKG as follows: Interpretation: Sinus Rhythm Comments: Normal sinus rhythm at a rate of 70 bpm Normal axis Normal intervals Normal ST segments Management Discussion w/another healthcare provider: Hospitalist Discharge Plan Triage Chief Complaint: Hypoglycemia ED Provider: Divya Stratton Dx/Rx/DC Orders Clinical Impression: Generalized weakness, Debility, THOMAS (acute kidney injury), Hypoglycemia Prescriptions: No Action Prolia 60 mg/mL syringe 60 mg SC [id number] Patient Comments: PT STATES LAST DOSING WAS IN JULY 2024 calcium carbonate-vitamin D3 [Calcium 600 with Vitamin D3] 600 mg-12.5 mcg (500 unit) capsule 2 cap PO BID simvastatin 10 mg tablet See Rx Instructions .ROUTE .COMPLEX Qty: 90 3RF Dose Instruction: TAKE 1 TABLET AT BEDTIME Rx Instructions: TAKE 1 TABLET AT BEDTIME everolimus (antineoplastic) 10 mg tablet 10 mg PO exemestane 25 mg tablet 25 mg PO DAILY furosemide 40 mg Tablet 40 mg PO DAILY 30 Days Qty: 30 0RF hydrocortisone 2.5 % Cream 1 applic topical BID PRN (Reason: itchiness) Protocol: *Topical Application Instructions APPLICATION INSTRUCTIONS: PRN to rash area Insulin Basal Pump (Pt's Own) [Pump, Basal] See Rx Instructions subcut .COMPLEX Rx Instructions: USE DIRECTED subcutaneously; artifi.tears(hypromellose)(PF) 1.7 % drops with applicator 2 drp EACH EYE Q2H PRN (Reason: dry eye(s)) ranolazine 500 mg tablet extended release 12 hr 500 mg PO DAILY Qty: 90 3RF levothyroxine 50 mcg tablet 50 mcg PO DAILY Qty: 90 3RF metoprolol succinate 100 mg tablet extended release 24 hr 100 mg PO DAILY Qty: 90 3RF Primary Care Provider: Celina Dangelo Referrals: Celina Dangelo DO [Primary Care Provider] - Print Language: Korean Disposition Disposition: Acute Care Hospital [facility]
--- NOTE | 2024-08-29 17:25 | PCM.HP.STD ---
HPI - General General Date of Admission: 08/29/24 Date of Service: 08/29/24 Chief Complaint: Hypoglycemia episode and worsening weakness HPI Narrative BASSAM JAIN, is a 79 F who presented to [facility] ED on 08/29/2024 after a hypoglycemia episode at home. Patient was recently hospitalized here from 08/14-08/17 for atypical pneumonia. Her medical history is significant for metastatic breast cancer, type 1 diabetes mellitus on an insulin pump, CKD stage IV, and chronic back pain with osteoarthritis and osteoporosis. She was discharged to [facility] and plan was then to discharge her to [facility] for further care on 08/22. However, they could not take her because of her insulin pump so she opted to go home. She lives at home alone. Her son was visiting from [place] today and when he arrived there he found that she was somnolent with minimal responsiveness, so he called EMS. EMS found that her blood sugar was 43. She was given a dose of D10 with significant improvement of her blood sugar and improvement in her level of responsiveness. In the ED she was afebrile and hemodynamically stable. CBC was benign. BMP showed creatinine 1.9 (baseline 1.3-1.6), was otherwise unremarkable. CT brain was nonacute. On further questioning from ED physician, patient reported feeling significantly more fatigued over the past several days and had not been eating or drinking much. She was concerned about being able to take care of herself at home and was requesting SNF placement, so hospitalist was contacted for admission. I saw the patient at bedside in the ED, son was present. Patient was mildly fatigued appearing but otherwise sitting back comfortably in bed, conversing normally and in no acute distress. She was mentally sharp. She denied any acute pain or discomfort currently. Noted that she continues to feel weaker than her normal and somewhat dehydrated. Has not had much of an appetite over the past several days. Denies any other acute concerns this time. Assessment: -cT3 cN0 M0 ER/KS positive, HER2 negative infiltrating lobular carcinoma of the left breast. -pT3 pN3a MX stage IIIC ER/KS positive, HER2 negative infiltrating lobular carcinoma of the left breast. -Was found to have bone metastases on staging work-up post mastectomy. -Tumor markers normal at baseline. -PET scan at the end of August 2021 suggested BLAKE. -Has history of hyperparathyroidism as evidenced by increased PTH 12/2020. -Dermal metastases responded very nicely and quickly to everolimus but it appears to be exacerbating underlying hypertension and also worsening her hyperglycemia. -Although responding well, we discussed decreasing dose to 5 mg daily due to exacerbation of hypertension and hyperglycemia. -Reviewed with her proper technique of taking blood pressure at home. Ideally first thing in the morning after sitting at the table for about 5 minutes and prior to any caffeine. Advised her to take it 3-4 times a week and record the readings. Plan: -Decrease everolimus to 10 mg every other day until gets new Rx for 5 mg tablets. -New Rx for everolimus 5 mg tablets daily sent to specialty pharmacy. -Rx amlodipine 5 mg daily. -Recheck blood pressure as well as BMP within 1 to 2 weeks. -Office visit with CBC/CMP in about 6 weeks. -Xgeva every 3 months. -Continue monthly B12 injection. -Recheck B12 when next here and potentially change to q 3 month injection. -Follow-up with nephrology. -Follow-up with Dr. Stephenson for management of diabetes. 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 Metastatic breast cancer Breast cancer, left Type 1 diabetes mellitus Diabetes mellitus Estrogen receptor positive status (ER+) Disproportion of reconstructed breast Acquired absence of left breast and nipple Breast ptosis Breast asymmetry Inversion of left nipple Invasive lobular carcinoma of left breast in female Vision problems Osteoporosis Osteoarthritis Kidney disease Hearing problem Cataracts, bilateral Back problem Hyperlipidemia Essential (primary) hypertension Facet arthropathy, lumbar Segmental and somatic dysfunction of pelvic region Segmental and somatic dysfunction of lumbar region Hyperthyroidism Environmental allergies Acute renal failure Arthritis Home Medications ?Medication ?Instructions ?Recorded ?Last Taken ?Type calcium 600 mg (as 2 cap PO BID supplement 06/12/22 08/28/24 History carbonate)-vitamin D3 12.5 mcg (500 unit) capsule (Calcium with Vit D3) denosumab 60 mg/mL subcutaneous 60 mg subcut [id number] osteoporosis 06/12/22 06/23/24 History syringe (Prolia) ranolazine 500 mg tablet,extended 500 mg PO DAILY heart health #90 09/10/23 08/28/24 Rx release,12 hr tabs simvastatin 10 mg tablet See Rx Instructions .Route 01/07/24 Unknown Rx .COMPLEX cholesterol #90 TABLETS levothyroxine 50 mcg tablet 50 mcg PO DAILY hypothyroidism #90 04/05/24 08/28/24 Rx tabs metoprolol succinate 100 mg 100 mg PO DAILY for blood pressure 06/22/24 08/28/24 Rx tablet,extended release 24 hr #90 TABLETS everolimus (antineoplastic) 10 mg 10 mg PO cancer 07/04/24 Unknown History tablet Held on 08/29/24. Instructions: MD Ordered exemestane 25 mg tablet 25 mg PO DAILY EXCESS ESTROGEN 07/04/24 08/28/24 History furosemide 40 mg tablet 40 mg PO DAILY EDEMA 30 days #30 08/22/24 08/28/24 Rx tabs Insulin Basal Pump (Pt's Own) See Rx Instructions subcut .COMPLEX 08/29/24 08/29/24 History [Pump, Basal] artifi.tears(hypromellose)(PF) 1.7 2 drp EACH EYE Q2H PRN dry eye(s) 08/29/24 Unknown History % eye drops with applicator hydrocortisone 2.5 % topical cream 1 applic topical BID PRN itchiness 08/29/24 08/28/24 History Allergy/AdvReac Type Severity Reaction Status Date / Time codeine AdvReac Vomiting Verified 08/29/24 12:55 hydrocodone AdvReac Vomiting Verified 08/29/24 12:55 meperidine (From Demerol) AdvReac Vomiting Verified 08/29/24 12:55 Family History Father Myocardial infarction <55 Heart disease Hypertension High cholesterol Mother Osteoporosis Skin cancer Surgical History History of modified radical mastectomy of left breast (08/05/19) History of left breast biopsy (06/2019) Status post right breast biopsy History of left heart catheterization (10/30/06) History of tubal ligation Social History household members: none Smoking Status: Never smoker alcohol intake: current alcohol intake frequency: holidays/special occasions only substance use type: does not use caffeine: Yes Type: coffee Number of servings: 2 additional social history: DOES USE ASPIRIN DOES NOT USE IBUPROFEN ROS Constitutional Constitutional: Reports fatigue and weakness; Denies chills or fever(s) Eyes Eyes: Denies change in vision Cardiovascular Cardiovascular: Denies chest pain Respiratory/Chest Respiratory/Chest: Denies shortness of breath at rest Gastrointestinal Gastrointestinal: Denies abdominal pain, constipation, diarrhea, nausea or vomiting Genitourinary Genitourinary: Denies dysuria Musculoskeletal Musculoskeletal: Denies arthralgias or myalgias Neurologic Neurologic: Denies dizziness or headache(s) Vital Signs Vital Signs Vital Signs: 08/29/24 12:49 08/29/24 12:55 08/29/24 13:55 Temperature 97.4 F L 97.4 F L 97.5 F L Temperature Source Oral Oral Oral Pulse Rate 75 69 76 Respiratory Rate 17 14 17 Blood Pressure 162/78 H 162/78 H 133/72 H Blood Pressure Mean 106 106 92 Pulse Ox 98 100 98 Oxygen Delivery Method Room Air Room Air Room Air 08/29/24 14:00 08/29/24 14:48 08/29/24 16:00 Temperature 97.5 F L Temperature Source Oral Pulse Rate 75 72 67 Respiratory Rate 14 17 14 Blood Pressure 133/72 H 153/67 H 118/53 L Blood Pressure Mean 92 95 74 Pulse Ox 98 99 95 Oxygen Delivery Method Room Air Room Air Room Air Weight Weight: 59.9 kg Body Mass Index (BMI) 26.6 Physical Exam Const alert, oriented x3, no apparent distress and average body habitus Constitutional Narrative: Elderly female, mildly fatigued appearing but otherwise sitting back comfortably in bed, conversing normally, in no acute distress. General Appearance: cooperative and comfortable HEENT normocephalic, head/scalp atraumatic, hearing grossly normal bilaterally and nasal mucous membranes and turbinates normal HEENT Narrative: Dry mucous membranes. Eyes PERRL, EOMs intact bilaterally and conjunctivae normal Neck full ROM Chest inspection of chest normal Resp normal respiratory effort, normal air movement, no use of accessory muscles and clear to auscultation bilaterally Cardio regular rate, regular rhythm, no murmurs and peripheral pulses 2+ throughout GI normal to inspection, nondistended, normoactive bowel sounds, soft to palpation, non-tender and non-distended Back/Spine normal ROM Extremity normal to inspection, full ROM and no pedal edema Skin no rashes or lesions noted Neuro moves all extremities and no focal motor deficits Speech: speech normal Psych mental status grossly normal Psych Narrative: Flat affect. Results Lab / Micro Data 08/29/24 13:00 08/29/24 13:00 Labs: Laboratory Results - last 24 hr 08/29/24 13:00: WBC 9.0, RBC 3.26 L, Hgb 10.2 L, Hct 31.7 L, MCV 97.2, MCH 31.3, MCHC 32.2, RDW Std Deviation 57.2 H, RDW Coeff of Alex 16.6 H, Plt Count 239, MPV 10.3, Immature Gran % (Auto) 0.800, Neut % (Auto) 70.2 H, Lymph % (Auto) 13.2 L, [place] % (Auto) 9.2, Eos % (Auto) 6.0 H, Baso % (Auto) 0.6, Absolute Neuts (auto) 6.4, Absolute Lymphs (auto) 1.19, Nucleated RBC % 0, Sodium 138, Potassium 3.6, Chloride 91 L, Carbon Dioxide 32.4 H, Anion Gap 14, BUN 19, Creatinine 1.96 H, Estim Creat Clear Calc 18.53 L, Est GFR (MDRD) Non-Af 25 L, BUN/Creatinine Ratio 9.5 L, Glucose 152 H, Calcium 10.7, Total Bilirubin 0.52, AST 55 H, ALT 52 H, Alkaline Phosphatase 70, Total Protein 6.4, Albumin 3.8, Globulin 2.6, Albumin/Globulin Ratio 1.5 08/29/24 14:58: Urine Color Yellow, Urine Clarity Sl. Cloudy, Urine pH 8.0, Ur Specific [place] 1.015, Urine Protein 15 H, Urine Glucose (UA) 50 H, Urine Ketones 15 H, Urine Occult Blood Negative, Urine Nitrite Negative, Urine Bilirubin Negative, Urine Urobilinogen Normal, Ur Leukocyte Esterase 25 H, Urine RBC 0 SEEN, Urine WBC 0-5 SEEN, Ur Squamous Epith Cells 0 SEEN, Amorphous Sediment 2+ PHOS, Urine Bacteria 1+, Urine Mucus 0 SEEN Imaging Radiology Impression Brain CT 08/29/24 14:35 IMPRESSION: Senescent changes. No evidence of acute intracranial hemorrhage Reading Location: [facility] Assessment & Plan Assessment/Plan (1) Generalized weakness: (2) Hypoglycemia: PLAN: Plan Patient is an 79-year-old female who presented [facility] ED on 08/29/2024 after an episode of hypoglycemia at home. 1. Acute on chronic debility ? Admit under observation status to [facility]. PT/OT/case management consulted. Suspect worsened weakness is secondary to recent poor p.o. intake with dehydration. Unclear if secondary to underlying cancer versus possibly due to recent atypical pneumonia or additional mild viral infection. Suspect patient will need SNF placement on discharge. Appreciate therapy recommendations. 2. Hypoglycemic episode in setting of type 1 diabetes mellitus ? Follows with Dr. Stephenson with endocrinology. Is on insulin pump with basal insulin and additional boluses with meals. Blood glucose 43 per EMS at home. Will hold off on using insulin pump for now and use Accu-Cheks and sliding scale insulin with meals, adjust as needed. 3. Mild creatinine elevation in setting of CKD stage IV ? Follows with outpatient nephrology. Creatinine 1.96 on admit, baseline appears to be around 1.3-1.6. Presume secondary to mild dehydration from poor p.o. intake recently. Given 1 L of IV fluids in the ED, follow-up a.m. BMP and monitor urine output. Holding home Lasix for now. 4. Metastatic breast cancer ? Follows with Dr. Stanford, last office visit at the end of June. Has known breast cancer (ER/KS positive, HER2 negative) with osseous and dermal mets. Per last note, has been on exemestane and everolimus with good response. Was noted patient was having worsening hyperglycemia and hypertension on the everolimus so that dose was decreased. Patient does note that since that dosage decrease it seems like she has had less energy and been more weak. No inpatient oncology needs but will need close outpatient follow-up; notably she had an office visit with Dr. Stanford scheduled for Thursday 08/31. Chronic medical conditions: ? Zuleika's thyroiditis with hypothyroidism: Continue home Synthroid. ? History of nonobstructive CAD, hypertension, hyperlipidemia: Continue home Toprol and ranolazine. Holding home Lasix as noted above. Home statin was recently discontinued for unclear reason. ? Osteoporosis: Continue Prolia injections every 3 months in outpatient setting. ? Chronic normocytic anemia: Hemoglobin stable at baseline around 10. DVT prophylaxis: Heparin subcu CODE STATUS: DNR CCA, DNI Expected disposition: Likely SNF, 1 to 2 days Total clinical time spent by myself addressing the patient's medical issues, reviewing all the data, and collaborating with patient's care team: 75 minutes. Charges/Coding Visit Charges Inpatient E&M: 06790 Init Hosp L3
[2024-08-29] MEDS: 0.9% Normal Saline (1000mL) 1,000 ML 500 ML IV (17:35)
[2024-08-29 18:18] LABS: Bedside Glucose 169 mg/dL (74-106)
--- NOTE | 2024-08-29 20:07 | CM.ED ---
Social work Reason for referral: probable readmission Referral source: Dr. Stratton This SW was approached by Dr. Stratton with request to meet with patient who was recently discharged from TCU on 08/25/24 to see what barriers were in place. Dr. Stratton stated patient was likely going to be admitted. This SW entered patient's room, introducing self and role at [facility]. Patient welcomed SW visit and introduced patient's son, Harman, who reportedly flew in today from [place]. Per triage, patient reported not eating or drinking the last few days due to being so weak. Patient clarified that patient knew patient needed to eat, but patient could not find the energy to get up because patient's body felt weak. Patient stated having weakness in patient's right leg which was contributing to patient's overall weakness. Patient stated not being able to complete ADLs and IADLs since discharging home either. Patient stated not having a chance to look into resources provided after last hospitalization due to weakness felt and patient stated desire to have PT set up at home if patient discharges home. Patient stated belief that patient needs to go to a SNF for rehab prior to going home due to not having Harman's help for more than a few days. Plan: admission to acute; RNCM/SW team to follow for discharge planning needs that may arise. Kajal Devlin, AIR TRAFFIC CONTROL OPERATOR, [employer]
[2024-08-29 20:35] LABS: Bedside Glucose 208 mg/dL (74-106)
[2024-08-29] MEDS: Heparin Injection (Vial) 5,000 UNIT/ML VIAL 5000 UNIT SC (22:51)
[2024-08-29] MEDS: Calcium Carb/Vitamin D 1 TABLET Tablet 2 TABLET PO (22:51)
[2024-08-29] MEDS: Insulin Lispro 100 UNIT/ML INSULN.PEN SC (22:56)
[2024-08-29 23:06] LABS: Bedside Glucose 215 mg/dL (74-106)
[2024-08-30 02:11] VITALS: BP 117/52; PULSE 75; RESP 14; TEMP 37; O2SAT 97
[2024-08-30] MEDS: Heparin Injection (Vial) 5,000 UNIT/ML VIAL 5000 UNIT SC (06:34)
[2024-08-30] MEDS: Levothyroxine 50 MCG Tablet PO (06:34)
[2024-08-30 06:38] VITALS: BP 114/44; PULSE 72; RESP 15; TEMP 36.6; O2SAT 96
[2024-08-30 06:48] LABS: Bedside Glucose 149 mg/dL (74-106)
[2024-08-30 07:36] LABS: Hematocrit 25.6 % (37-47); Hemoglobin 8.4 g/dL (12.0-15.0); Mean Corp Hgb Conc 32.8 g/dL (32-36); Mean Corpuscular Hgb 31.9 pg (27.0-32.0); Mean Corpuscular Volume 97.3 fL (81-99); Mean Platelet Vol. 10.7 fl (6.2-12.0); Platelet Count 190 K/mm3 (150-450); Red Blood Count 2.63 M/mm3 (4.2-5.4); White Blood Count 6.6 K/mm3 (4.4-11.0)
[2024-08-30 08:04] VITALS: BP 125/49; PULSE 73; RESP 14; TEMP 36.8; O2SAT 100
[2024-08-30 08:06] VITALS: PULSE 73
[2024-08-30] MEDS: Metoprolol(XL)Succ 100 MG Tablet PO (08:06)
[2024-08-30] MEDS: Ranolazine 500 MG Tablet PO (08:06)
[2024-08-30] MEDS: Calcium Carb/Vitamin D 1 TABLET Tablet 2 TABLET PO (08:06)
[2024-08-30 08:09] LABS: Anion Gap 17 (5-15); BUN 20 mg/dL (4-19); BUN/Creat Ratio 10.5 RATIO (10-20); Calcium,Total 9.8 mg/dL (7.6-11.0); Carbon Dioxide 26.9 mmol/L (21.0-32.0); Chloride 96 mmol/L (98-108); Creatinine, Serum 1.93 mg/dL (0.70-1.20); EST Glomerular Filtration Rate 26 (>60); Estimated Creatinine Clearance 18.96 ml/min (50-250); Glucose 155 mg/dL (70-99); Potassium 3.8 mmol/L (3.3-5.1); Sodium Level 140 mmol/L (133-145)
--- NOTE | 2024-08-30 11:15 | CASEMGMT ---
Addendum entered by Whitney Garcia 08/30/24 12:08: Patient was accepted by [facility] with planned start of care for . ZOEY RIVAS updated patient, patient voiced appreciation. Patient had no further questions or concerns. ZOEY RIVAS updated discharge plan and hospitalist Original Note: ZOEY RIVAS updated by therapy that patient did well and could go home with [facility]. ZOEY CM in to discuss discharge planning with patient. Patient is agreeable to [facility] at discharge, C list provided to patient. Patient prefers [facility]. Patient declined further needs at discharge. ZOEY RIVAS called and made referral to [facility], awaiting acceptance. CM will continue to follow this patient and plan for a safe discharge.
[2024-08-30] MEDS: Insulin Lispro 100 UNIT/ML INSULN.PEN SC (11:33)
[2024-08-30 11:56] LABS: Bedside Glucose 344 mg/dL (74-106)
--- NOTE | 2024-08-30 12:11 | DCINST_ITS ---
Discharge Instructions Diet Discharge Diet: - (Resume previous diet) DC O2, CPAP, BIPAP needs Home O2 Discharge instructions: No Dressing / Incision Discharge Activity: Return to Normal Activity Weight Bearing Status: Full weight bearing Follow Up Care Test Results: Test results from this visit will be discussed in further detail at your follow- up appointment, if applicable. Discharge Plan Admission Admit Date/Time: 08/29/24 17:29 Primary Reason for Your Visit: Hypoglycemia, debility Attending Provider: Devante Nix Primary Care Provider: Celina Dangelo Consulting Providers: Huang Almaraz Discharge Orders/Prescriptions Prescriptions: Continued Prolia 60 mg/mL syringe 60 mg SC [id number] Patient Comments: PT STATES LAST DOSING WAS IN JULY 2024 calcium carbonate-vitamin D3 [Calcium 600 with Vitamin D3] 600 mg-12.5 mcg (500 unit) capsule 2 cap PO BID simvastatin 10 mg tablet See Rx Instructions .ROUTE .COMPLEX Qty: 90 3RF Dose Instruction: TAKE 1 TABLET AT BEDTIME Rx Instructions: TAKE 1 TABLET AT BEDTIME everolimus (antineoplastic) 10 mg tablet 10 mg PO exemestane 25 mg tablet 25 mg PO DAILY furosemide 40 mg Tablet 40 mg PO DAILY 30 Days Qty: 30 0RF hydrocortisone 2.5 % Cream 1 applic topical BID PRN (Reason: itchiness) Protocol: *Topical Application Instructions APPLICATION INSTRUCTIONS: PRN to rash area Insulin Basal Pump (Pt's Own) [Pump, Basal] See Rx Instructions subcut .COMPLEX Rx Instructions: USE DIRECTED subcutaneously; artifi.tears(hypromellose)(PF) 1.7 % drops with applicator 2 drp EACH EYE Q2H PRN (Reason: dry eye(s)) ranolazine 500 mg tablet extended release 12 hr 500 mg PO DAILY Qty: 90 3RF levothyroxine 50 mcg tablet 50 mcg PO DAILY Qty: 90 3RF metoprolol succinate 100 mg tablet extended release 24 hr 100 mg PO DAILY Qty: 90 3RF Referrals / Follow Up: Celina Dangelo DO [Primary Care Provider] - See Referral Note (As scheduled) Disposition Disposition (needs filled in before D/C Order can be placed): Home Health Service
--- NOTE | 2024-08-30 12:21 | DS.PCM_ITS ---
Providers Date of Admission: 08/29/24 Date of Discharge: 08/30/24 Primary Care Physician: Dr. Celina Dangelo DO Reason For Visit: ADULT FAILURE TO THRIVE EPISODE OF HYPOGLYCEMIA Diagnosis Discharge Diagnosis (1) Generalized weakness: Status: Acute Code(s): R53.1 - Weakness (2) Hypoglycemia: Status: Acute Code(s): E16.2 - Hypoglycemia, unspecified Plan 1. Hypoglycemia unintentional as a result of home insulin use for type 1 diabetes #2 generalized weakness secondary to #1 #3 hypothyroidism #4 metastatic breast cancer #5 chronic kidney disease stage IV secondary to type 1 diabetes Medications at Discharge Home Medications calcium 600 mg (as carbonate)-vitamin D3 12.5 mcg (500 unit) capsule (Calcium with Vit D3) 2 cap PO BID supplement 06/12/22 denosumab 60 mg/mL subcutaneous syringe (Prolia) 60 mg subcut [id number] osteoporosis 06/12/22 ranolazine 500 mg tablet,extended release,12 hr 500 mg PO DAILY heart health #90 tabs 09/10/23 simvastatin 10 mg tablet See Rx Instructions .Route .COMPLEX cholesterol #90 TABLETS 01/07/24 levothyroxine 50 mcg tablet 50 mcg PO DAILY hypothyroidism #90 tabs 04/05/24 metoprolol succinate 100 mg tablet,extended release 24 hr 100 mg PO DAILY for blood pressure #90 TABLETS 06/22/24 everolimus (antineoplastic) 10 mg tablet 10 mg PO cancer 07/04/24 exemestane 25 mg tablet 25 mg PO DAILY EXCESS ESTROGEN 07/04/24 furosemide 40 mg tablet 40 mg PO DAILY EDEMA 30 days #30 tabs 08/22/24 Insulin Basal Pump (Pt's Own) [Pump, Basal] See Rx Instructions subcut .COMPLEX 08/29/24 artifi.tears(hypromellose)(PF) 1.7 % eye drops with applicator 2 drp EACH EYE Q2H PRN dry eye(s) 08/29/24 hydrocortisone 2.5 % topical cream 1 applic topical BID PRN itchiness 08/29/24 Hospital Course Operations None Procedures None Summary of Care Provided Minutes Spent on Discharge: 30 Hospital Course: This 79-year-old white female was seen in the emergency room at [facility] with a chief complaint of generalized weakness and altered mental status. EMS was called to her home and she was found to have a blood sugar of 43, D10 was given and her blood sugar went up to 230. Patient recently had been in a transitional care unit for skilled care and had plan to go to a detention facility but the facility would not accept her because she used an insulin pump for her diabetes. Labs obtained showed a normal white blood cell count, hemoglobin was 10.2, chemistry panel was remarkable for creatinine of 1.96, AST and ALT were slightly elevated, and urine showed +1 bacteria but no red cells and 0-[address] of the brain was unremarkable for acute changes. Patient was placed in observation status on PCU for hypoglycemia and debility, the following day she was seen by PT and OT and did quite well with these therapies. It was not felt that the patient needed to go to a detention facility for further care and the patient wished to go home. On 08/30/2024, patient was seen and examined: On examination she appeared in good health and spirits, she does not appear to be in any distress. Vital signs as documented. Skin warm and dry and without overt rashes. Neck without JVD, thyroid appears normal, trachea is midline, neck is supple. Lungs clear, normal air movement was noted. Heart exam notable for regular rhythm, normal sounds and absence of murmurs, rubs or gallops. Abdomen unremarkable and without evidence of organomegaly, masses, or abdominal aortic enlargement, bowel sounds are present in all 4 quadrants, no abdominal tenderness was noted. Extremities nonedematous, no cyanosis was noted, no clubbing was noted. Neuro: Cranial nerves II through XII are grossly intact, no focal motor deficits were noted, sensation to light touch and pinprick is intact, motor exam 5/5 throughout. Psych: Patient is alert and oriented x3, she does not appear anxious or depressed, she does not appear agitated. Patient appears stable for discharge home on 08/30/2024. Weight / BMI Weight Weight: 60.9 kg Body Mass Index (BMI) 27.1 ABG / Lab / Microbiology Data 08/30/24 06:27 08/30/24 06:27 Laboratory: Laboratory Results - last 24 hr 08/29/24 20:15: POC Glucose 208 H 08/29/24 22:47: POC Glucose 215 H 08/30/24 06:27: WBC 6.6, RBC 2.63 L, Hgb 8.4 L, Hct 25.6 L, MCV 97.3, MCH 31.9, MCHC 32.8, RDW Std Deviation 59.0 H, RDW Coeff of Alex 17.0 H, Plt Count 190, MPV 10.7, Sodium 140, Potassium 3.8, Chloride 96 L, Carbon Dioxide 26.9, Anion Gap 17 H, BUN 20 H, Creatinine 1.93 H, Estim Creat Clear Calc 18.96 L, Est GFR (MDRD) Non-Af 26 L, BUN/Creatinine Ratio 10.5, Glucose 155 H, Calcium 9.8 08/30/24 06:31: POC Glucose 149 H 08/30/24 11:31: POC Glucose 344 H Radiography Diagnostic Testing: Radiology Impression Brain CT 08/29/24 14:35 IMPRESSION: Senescent changes. No evidence of acute intracranial hemorrhage Reading Location: [facility] D/C Instructions Discharge Diet: - (Resume previous diet) Weight Bearing Status: Full weight bearing DC O2, CPAP, BIPAP Needs Home O2 Discharge instructions: No Meaningful Use Info Meaningful Use Meaningful Use Diagnoses (Choose all that apply): None applicable Ischemic Stroke Statin Dosing Therapy Reference: STATIN DOSE THERAPY REFERENCE: * Patients > 75 years receive moderate or high dose statin therapy. * Patients 75 years or YOUNGER should receive HIGH intensity statin dose unless contraindicated. You will be required to document reason for non-treatment if statin daily dose does not meet guidelines. HIGH DOSE STATIN THERAPY DAILY Atorvastatin > than or = to 40 mg Rosuvastatin > than or = to 20 mg Amlodipine + Atorvastatin > than or = to 2.5/40 mg Ezetimibe + Simvastatin 10/80 mg Simvastatin 80mg Discharge Plan Admission Admit Date/Time: 08/29/24 17:29 Primary Reason for Your Visit: Hypoglycemia, debility Attending Provider: Devante Nix Primary Care Provider: Celina Dangelo Consulting Providers: Huang Almaraz Discharge Orders/Prescriptions Prescriptions: Continued Prolia 60 mg/mL syringe 60 mg SC [id number] Patient Comments: PT STATES LAST DOSING WAS IN JULY 2024 calcium carbonate-vitamin D3 [Calcium 600 with Vitamin D3] 600 mg-12.5 mcg (500 unit) capsule 2 cap PO BID simvastatin 10 mg tablet See Rx Instructions .ROUTE .COMPLEX Qty: 90 3RF Dose Instruction: TAKE 1 TABLET AT BEDTIME Rx Instructions: TAKE 1 TABLET AT BEDTIME everolimus (antineoplastic) 10 mg tablet 10 mg PO exemestane 25 mg tablet 25 mg PO DAILY furosemide 40 mg Tablet 40 mg PO DAILY 30 Days Qty: 30 0RF hydrocortisone 2.5 % Cream 1 applic topical BID PRN (Reason: itchiness) Protocol: *Topical Application Instructions APPLICATION INSTRUCTIONS: PRN to rash area Insulin Basal Pump (Pt's Own) [Pump, Basal] See Rx Instructions subcut .COMPLEX Rx Instructions: USE DIRECTED subcutaneously; artifi.tears(hypromellose)(PF) 1.7 % drops with applicator 2 drp EACH EYE Q2H PRN (Reason: dry eye(s)) ranolazine 500 mg tablet extended release 12 hr 500 mg PO DAILY Qty: 90 3RF levothyroxine 50 mcg tablet 50 mcg PO DAILY Qty: 90 3RF metoprolol succinate 100 mg tablet extended release 24 hr 100 mg PO DAILY Qty: 90 3RF Referrals / Follow Up: Celina Dangelo DO [Primary Care Provider] - See Referral Note (As scheduled) Disposition Disposition (needs filled in before D/C Order can be placed): Home Health Service Charges/Coding Visit Charges Inpatient E&M: 06649 Disch Hosp
[2024-08-30 13:24] VITALS: BP 109/49; PULSE 77; RESP 18; TEMP 36.8; O2SAT 100
--- NOTE | 2024-08-30 13:56 | PHA.DC.MR.R ---
Pharmacy [place] Med Reconciliation Pharmacy Service has performed discharge medication reconciliation for this patient. The patient's discharge medication list was reviewed for discrepancies and discrepancies were resolved. Medications at Discharge Home Medications calcium 600 mg (as carbonate)-vitamin D3 12.5 mcg (500 unit) capsule (Calcium with Vit D3) 2 cap PO BID supplement 06/12/22 denosumab 60 mg/mL subcutaneous syringe (Prolia) 60 mg subcut [id number] osteoporosis 06/12/22 ranolazine 500 mg tablet,extended release,12 hr 500 mg PO DAILY heart health #90 tabs 09/10/23 simvastatin 10 mg tablet See Rx Instructions .Route .COMPLEX cholesterol #90 TABLETS 01/07/24 levothyroxine 50 mcg tablet 50 mcg PO DAILY hypothyroidism #90 tabs 04/05/24 metoprolol succinate 100 mg tablet,extended release 24 hr 100 mg PO DAILY for blood pressure #90 TABLETS 06/22/24 everolimus (antineoplastic) 10 mg tablet 10 mg PO cancer 07/04/24 exemestane 25 mg tablet 25 mg PO DAILY EXCESS ESTROGEN 07/04/24 furosemide 40 mg tablet 40 mg PO DAILY EDEMA 30 days #30 tabs 08/22/24 Insulin Basal Pump (Pt's Own) [Pump, Basal] See Rx Instructions subcut .COMPLEX 08/29/24 artifi.tears(hypromellose)(PF) 1.7 % eye drops with applicator 2 drp EACH EYE Q2H PRN dry eye(s) 08/29/24 hydrocortisone 2.5 % topical cream 1 applic topical BID PRN itchiness 08/29/24
--- NOTE | 2024-08-30 15:06 | CHAPLAIN ---
Type of Pastoral Visit ___ Initial Visit ___ Follow-up Visit ___ On-call Visit ___ General Patient Visit ___ Spiritual Assessment ___ Family Conference ___ Bereavement ___ Rapid Response ___ Code Blue ___ Other (describe below) Pastoral Care Referral From ___ Patient ___ Family ___ Nurse ___ Physician ___ [employer] ___ [employer] ___ Other (describe below) Sacrament/Intervention ___ Active listening ___ Anointing ___ Gnosticism ___ Bereavement ___ Communion ___ Ruth exploration ___ ___ Life review ___ Prayer ___ Reconciliation ___ Sacrament of Sick ___ Supportive presence ___ Wedding ___ Other (describe below) Pastoral Comments patient was discharged before seen by this car customizer
== END 2024-08-30 14:26 | disposition home health service (06) ==
LOC: ED 18:13 → PCU 19:52
PROVIDERS: Admitting Provider Hospitalist; Emergency Provider Emergency Medicine; PCP Family Medicine; Referring Provider Hospitalist; Visit Provider Internal Medicine
DX: E10.649 Type 1 diabetes mellitus with hypoglycemia without coma (principal); C79.51 Secondary malignant neoplasm of bone; N18.4 Chronic kidney disease, stage 4 (severe); C50.912 Malignant neoplasm of unspecified site of left female breast; E10.42 Type 1 diabetes mellitus with diabetic polyneuropathy; E10.22 Type 1 diabetes mellitus with diabetic chronic kidney disease; Z79.4 Long term (current) use of insulin; N17.9 Acute kidney failure, unspecified; I12.9 Hypertensive chronic kidney disease with stage 1 through stage 4 chronic kidney disease, or unspecified chronic kidney disease; I25.10 Atherosclerotic heart disease of native coronary artery without angina pectoris; E78.5 Hyperlipidemia, unspecified; E03.9 Hypothyroidism, unspecified; R62.7 Adult failure to thrive; E06.3 Autoimmune thyroiditis; D64.9 Anemia, unspecified; M81.0 Age-related osteoporosis without current pathological fracture; G89.29 Other chronic pain; M54.9 Dorsalgia, unspecified; M19.90 Unspecified osteoarthritis, unspecified site; Z66 Do not resuscitate; Z17.0 Estrogen receptor positive status [ER+]; Z79.899 Other long term (current) drug therapy; Z96.41 Presence of insulin pump (external) (internal)
CPT/HCPCS: 36415; 70450; 80048; 80053; 81001; 82962; 85025; 85027; 93005; 96360; 96361; 96372; 97162; 97166; 99221; 99285; A4216; G0378

== ENCOUNTER 2024-10-24 17:31 | Emergency (ER) | payer MEDICARE, OTHER, SELFPAY ==
[2024-10-24 17:32] VITALS: BP 141/101; PULSE 76; RESP 19; TEMP 36.6; O2SAT 98; BMI 26.4
[2024-10-24 20:24] VITALS: BP 122/66; PULSE 72; RESP 18; TEMP 36.6; O2SAT 99
[2024-10-24 20:25] VITALS: BP 122/66; PULSE 72; RESP 18; O2SAT 99
--- NOTE | 2024-10-24 20:29 | EDS_ITS ---
HPI History of Present Illness Chief Complaint: Lower Extremity Injury Informant: patient Narrative Narrative: Patient presents with a rash. She started having pruritus on her face and ears 6 nights ago, then night after she restarted chemotherapy for breast cancer, everolimus and eyemestane. Also, she is getting fulvestrant injections that she started getting last month that are new. No other new medications. She continued to have itching on her face until yesterday when she noticed it was peeling and then last night she noticed that her legs and arms started peeling. She has no pain. She has no systemic symptoms. Her face still itches but her arms and legs do not. 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 Insulin pump titration Presence of insulin pump Diabetic polyneuropathy associated with type 1 diabetes mellitus Metastatic breast cancer Breast cancer, left Type 1 diabetes mellitus Diabetes mellitus Estrogen receptor positive status (ER+) Disproportion of reconstructed breast Acquired absence of left breast and nipple Breast ptosis Breast asymmetry Inversion of left nipple Invasive lobular carcinoma of left breast in female Vision problems Osteoporosis Osteoarthritis Kidney disease Hearing problem Cataracts, bilateral Back problem Hyperlipidemia Essential (primary) hypertension Facet arthropathy, lumbar Segmental and somatic dysfunction of pelvic region Segmental and somatic dysfunction of lumbar region Hyperthyroidism Environmental allergies Acute renal failure Arthritis Home Medications ?Medication ?Instructions ?Recorded ?Last Taken ?Type denosumab 60 mg/mL subcutaneous 60 mg subcut [id number] osteoporosis 06/12/22 06/23/24 History syringe (Prolia) levothyroxine 50 mcg tablet 50 mcg PO DAILY hypothyroi dism #90 04/05/24 08/28/24 Rx tabs metoprolol succinate 100 mg 100 mg PO DAILY for blood pressure 06/22/24 08/28/24 Rx tablet,extended release 24 hr #90 TABLETS Insulin Basal Pump (Pt's Own) See Rx Instructions subc ut .COMPLEX 08/29/24 08/29/24 History [Pump, Basal] artifi.tears(hypromellose)(PF) 1.7 2 drp EACH EYE Q2H PRN dry eye(s) 08/29/24 Unknown History % eye drops with applicator ranolazine 500 mg tablet,extended 500 mg PO DAILY hear t health #90 09/13/24 Unknown Rx release,12 hr tabs insulin aspart U-100 100 unit/mL 100 unit subcut DAILY diabetes #90 10/03/24 Unknown Rx subcutaneous solution (Novolog mL U-100 Insulin aspart) simvastatin 10 mg tablet See Rx Instructions .Route 2 XW 10/03/24 Unknown History cholesterol Allergy/AdvReac Type Severity Reaction Status Date / Time codeine AdvReac Vomiting Verified 10/24/24 17:32 hydrocodone AdvReac Vomiting Verified 10/24/24 17:32 meperidine (From Demerol) AdvReac Vomiting Verified 10/24/24 17:32 Family History Father Myocardial infarction <55 Heart disease Hypertension High cholesterol Mother Osteoporosis Skin cancer Surgical History History of modified radical mastectomy of left breast (08/05/19) History of left breast biopsy (06/2019) Status post right breast biopsy History of left heart catheterization (10/30/06) History of tubal ligation Social History household members: none Smoking Status: Never smoker alcohol intake: current alcohol intake frequency: holidays/special occasions only substance use type: does not use caffeine: Yes Type: coffee Number of servings: 2 additional social history: DOES USE ASPIRIN DOES NOT USE IBUPROFEN ROS ROS ED Constitutional Constitutional ED: Denies chills or fever(s) Eyes Eyes: Denies change in vision or diplopia ENT ENT ED: Denies rhinorrhea or sore throat Cardiovascular Cardiovascular: Denies chest pain or palpitations Respiratory/Chest Respiratory/Chest: Denies cough or dyspnea Gastrointestinal Gastrointestinal: Denies abdominal pain, diarrhea, nausea or vomiting Genitourinary Genitourinary ED: Denies dysuria or hematuria Musculoskeletal Musculoskeletal: Denies back pain or neck pain Integumentary Reports rash; Denies abscess Neurologic Neurologic: Denies headache(s), paresthesias or weakness Psychiatric Psychiatric: Denies anxiety or suicidal thoughts EXAM Physical Exam Const Vital Signs: 10/24/24 17:32 10/24/24 20:24 10/24/24 20:25 Temperature 98 F 97.9 F Temperature Source Oral Oral Pulse Rate 76 72 72 Respiratory Rate 19 H 18 18 Blood Pressure 141/101 H 122/66 H 122/66 H Blood Pressure Mean 114 84 84 Pulse Ox 98 99 99 Oxygen Delivery Method Room Air Room Air Room Air 10/24/24 21:00 Temperature 97.9 F Temperature Source Oral Pulse Rate 71 Respiratory Rate 16 Blood Pressure 138/59 H Blood Pressure Mean 85 Pulse Ox 100 Oxygen Delivery Method Room Air Positive well nourished and well developed Constitutional Narrative: Well-appearing, conversant, ambulatory General Appearance ED: well developed and NAD HEENT Reports moist mucous membranes HEENT Narrative: No oral mucous membrane abnormality. Tongue normal. normocephalic and atraumatic Eyes PERRL and EOMs intact bilaterally Eyes Narrative: Conjunctivae normal. Neck full ROM, no lymphadenopathy and supple Resp normal respiratory effort and clear to auscultation bilaterally Cardio regular rate, regular rhythm and no murmurs Rate: Negative for tachycardic GI non-tender and non-distended Auscultation: normoactive bowel sounds Palpation: soft Back/Spine no CVA tenderness General Back: other FROM Extremity normal to inspection General Extremety ED: Yes edema; Negative for pulses abnormal or tenderness General Extremity: edema bilateral upper extremity mild (More on left, chronic per patient); Negative for pulses abnormal Neuro oriented x3, CN's II-XII intact bilaterally and no sensory deficits noted Sensorium / Orientation: awake and alert Motor Exam: strength 5/5 throughout Psych mental status grossly normal Skin no wounds Skin Narrative: Patient has large patches of peeling epidermis, with some seeping clear fluid as a result, on legs more so than arms, the left arm is worse than the right. She has intact pulses. There are some erythema in both forearms, but there are no other rashes or lesions other than peeling skin which is also present on the face, the ears, the upper chest and the upper back near the neck. These are smaller patches than the ones in the legs and arms. The rest of the back and trunk are spared. The majority of the involvement is on the legs and the face and ears. The arms are just involved in small areas mostly volar surfaces of the upper arms and antecubital fossa on the left. There is no subcutaneous emphysema or tenderness or signs of an infection. MDM MDM MDM Narrative Medical decision making narrative: The patient has large patches of superficial skin sloughing on her lower extremities, not as bad on the upper extremities, and her face and a nterior/posterior neck almost look like a healing sunburn after it has healed. She appears well, her vital signs are normal, I obtained some basic labs which are also normal. I spoke with Dr. Stanford, my concern is that this was a medication reaction. It is not consistent with Paula-Raji syndrome. He is in agreement with stopping the patient's everolimus, and have her follow-up with dermatology to confirm that there is nothing else going on but since she is not toxic in not hypovolemic, there is no mucous membrane involvement, uncomfortable with her going home and stopping the likely offending agent. Lab Data Attestation: I reviewed the patient's lab results. Labs: Laboratory Results - last 24 hr 10/24/24 20:39 WBC 6.7 RBC 4.02 L Hgb 12.6 Hct 38.7 MCV 96.3 MCH 31.3 MCHC 32.6 RDW Std Deviation 51.7 H RDW Coeff of Alex 14.6 Plt Count 173 MPV 10.2 Immature Gran % (Auto) 0.100 Neut % (Auto) 60.2 Lymph % (Auto) 12.7 L Wilkin % (Auto) 12.3 H Eos % (Auto) 14.3 H Baso % (Auto) 0.4 Absolute Neuts (auto) 4.0 Absolute Lymphs (auto) 0.85 Nucleated RBC % 0 Sodium 138 Potassium 4.6 Chloride 102 Carbon Dioxide 24.7 Anion Gap 12 BUN 24 H Creatinine 1.19 Estim Creat Clear Calc 30.39 L Est GFR (MDRD) Non-Af 46 L BUN/Creatinine Ratio 19.7 Glucose 107 H Calcium 9.2 Management Discussion w/another healthcare provider: Grab Jack Worker ( Oncology) Discharge Plan Triage Chief Complaint: Lower Extremity Injury ED Provider: Steven Vásquez Dx/Rx/DC Orders Clinical Impression: Drug reaction, Bullous rash Instructions: ED Drug Reaction, Other Prescriptions: No Action Prolia 60 mg/mL syringe 60 mg SC [id number] Patient Comments: PT STATES LAST DOSING WAS IN JULY 2024 simvastatin 10 mg tablet See Rx Instructions .ROUTE 2XW Dose Instruction: TAKE 1 TABLET AT BEDTIME Rx Instructions: TAKE 1 TABLET AT BEDTIME twice a week; insulin aspart U-100 [Novolog U-100 Insulin aspart] 100 unit/mL solution 100 unit subcut DAILY Qty: 90 3RF Rx Instructions: via insulin pump Insulin Basal Pump (Pt's Own) [Pump, Basal] See Rx Instructions subcut .COMPLEX Rx Instructions: USE DIRECTED subcutaneously; artifi.tears(hypromellose)(PF) 1.7 % drops with applicator 2 drp EACH EYE Q2H PRN (Reason: dry eye(s)) levothyroxine 50 mcg tablet 50 mcg PO DAILY Qty: 90 3RF metoprolol succinate 100 mg tablet extended release 24 hr 100 mg PO DAILY Qty: 90 3RF ranolazine 500 mg tablet extended release 12 hr 500 mg PO DAILY Qty: 90 3RF Primary Care Provider: Celina Dangelo Referrals: Cheko Stanford DO [Med Staff - Active Staff] - (call for appt info) Philipp Argueta MD [Med Staff - Carbon Paste Mixer Operator] - As soon as possible Activity Restrictions/Additional Instructions: Discontinue your everolimus. Print Language: [place] Citizen Disposition Disposition: Home, Self Care
[2024-10-24 20:52] LABS: Absolute Lymphocyte Count 0.85 X10^3/uL (0.83-4.51); Basophil# 0.03 X10^3/uL; Basophil% 0.4 % (0-1); Eosinophil# 0.96 X10^3/uL; Eosinophils% 14.3 % (0-5); Hematocrit 38.7 % (37-47); Hemoglobin 12.6 g/dL (12.0-15.0); Lymphocyte # 0.85 X10^3/ul (0.83-4.51); Lymphocyte % 12.7 % (19-41); Mean Corp Hgb Conc 32.6 g/dL (32-36); Mean Corpuscular Hgb 31.3 pg (27.0-32.0); Mean Corpuscular Volume 96.3 fL (81-99); Mean Platelet Vol. 10.2 fl (6.2-12.0); Monocyte# 0.82 X10^3/uL; Monocyte% 12.3 % (0-10); NRBC Flagged by Analyzer 0 % (0-5); Neutrophil # 4.02 X10^3/uL (2.7-7.7); Neutrophil % 60.2 % (47-70); Platelet Count 173 K/mm3 (150-450); RBC Distribution Width CV 14.6 % (11.6-14.6); RBC Distribution Width SD 51.7 fl (35.1-43.9); Red Blood Count 4.02 M/mm3 (4.2-5.4); White Blood Count 6.7 K/mm3 (4.4-11.0)
[2024-10-24 21:00] VITALS: BP 138/59; PULSE 71; RESP 16; TEMP 36.6; O2SAT 100
[2024-10-24 21:23] LABS: Anion Gap 12 (5-15); BUN 24 mg/dL (4-19); BUN/Creat Ratio 19.7 RATIO (10-20); Calcium,Total 9.2 mg/dL (7.6-11.0); Carbon Dioxide 24.7 mmol/L (21.0-32.0); Chloride 102 mmol/L (98-108); Creatinine, Serum 1.19 mg/dL (0.70-1.20); EST Glomerular Filtration Rate 46 (>60); Estimated Creatinine Clearance 30.39 ml/min (50-250); Glucose 107 mg/dL (70-99); Potassium 4.6 mmol/L (3.3-5.1); Sodium Level 138 mmol/L (133-145)
[2024-10-24 22:00] VITALS: BP 142/79; PULSE 78; RESP 16; TEMP 36.6; O2SAT 95
[2024-10-24 22:16] VITALS: BP 141/51; PULSE 67; RESP 16; TEMP 36.6; O2SAT 100
== END 2024-10-24 22:41 | disposition home or self-care (01) ==
PROVIDERS: Emergency Provider Emergency Medicine; PCP Family Medicine; Visit Provider Emergency Medicine
DX: L29.9 Pruritus, unspecified (principal); E10.42 Type 1 diabetes mellitus with diabetic polyneuropathy; Z79.4 Long term (current) use of insulin; T45.1X5A Adverse effect of antineoplastic and immunosuppressive drugs, initial encounter; E78.5 Hyperlipidemia, unspecified; I10 Essential (primary) hypertension; Z92.21 Personal history of antineoplastic chemotherapy; Z85.3 Personal history of malignant neoplasm of breast; E03.8 Other specified hypothyroidism; Z79.890 Hormone replacement therapy; Z79.899 Other long term (current) drug therapy; Z98.51 Tubal ligation status; Z90.12 Acquired absence of left breast and nipple
CPT/HCPCS: 80048; 85025; 99282; A4216

== ENCOUNTER → 2024-12-08 | Outpatient (CLI) | payer MEDICARE, OTHER, SELFPAY ==
[2024-12-08 18:06] LABS: Protein, Urine (Random) < 6.0 mg/dL (0.0-12.0); Protein:Creat Ratio UNABLE TO CALCULATE mg/g CRE (0-200)
== END | disposition home or self-care (01) ==
LOC: MTLAB 14:03
PROVIDERS: PCP Family Medicine; Referring Provider Internal Medicine Nephrology; Visit Provider Internal Medicine Nephrology
DX: N18.32 Chronic kidney disease, stage 3b (principal)
CPT/HCPCS: 82570; 84156

== ENCOUNTER → 2025-02-08 | Outpatient (CLI) | payer MEDICARE, OTHER, SELFPAY ==
--- NOTE | 2025-02-08 11:14 | RAD_ITS ---
PROCEDURE: HIP, UNI W/ PELVIS 2-3 VIEWS 02/08/2025 REASON FOR EXAM: PAIN TECHNIQUE: HIP, UNI W/ PELVIS 2-3 VIEWS Laterality: FINDINGS: No evidence of acute fracture or dislocation. Plji-ej-balrbrom degenerative changes of the bilateral hips. Degenerative changes of the partially visualized spine. RAD/HIP, UNI W/ Pelvis 2-3 Views IMPRESSION: No acute osseous abnormalities. Osteoarthrosis. Reading Location: [id number]
--- NOTE | 2025-02-08 11:15 | RAD_ITS ---
PROCEDURE: LUMBAR SPINE 2 OR 3 VIEWS 02/08/2025 REASON FOR EXAM: PAIN TECHNIQUE: LUMBAR SPINE 2 OR 3 VIEWS FINDINGS: No evidence of acute fracture or dislocation. Vertebral body heights are maintained. Moderate discogenic degenerative changes. Normal alignment. RAD/Lumbar Spine 2 or 3 Views IMPRESSION: Spondylosis. Reading Location: [id number]
== END | disposition home or self-care (01) ==
LOC: MTRAD 11:12
PROVIDERS: PCP Family Medicine; Referring Provider Family Medicine; Visit Provider Family Medicine
DX: M51.16 Intervertebral disc disorders with radiculopathy, lumbar region (principal); M25.551 Pain in right hip
CPT/HCPCS: 72100; 73502

== ENCOUNTER 2025-03-09 13:30 | Outpatient (RCR) | payer MEDICARE, OTHER, SELFPAY ==
--- NOTE | 2025-02-14 15:18 | HP.OTEVAL ---
Patient's Visit Information Visit Information Visit Information: BASSAM JAIN is a 79 year old F, referred to Occupational Therapy by Dr. Celina Dangeol DO, with a diagnosis of lymphedema. Date of Evaluation: 02/14/25 Occupational Therapist: JADON Laurent/Edelmira, CHT Subjective Subjective: This 79 year old female was seen for OT eval with dx of left UE lymphedema. pt states in 2019 she had her mastectomy with 19 lymph nodes removed. pt states they did cut a nerve on the back of her arm that did cause numbness. sometimes the way she holds her arm it irritates it. pt states she did not gain full ROM following her mastectomy is on oral chemo now. Pt states she has left arm pain- pt states she had a fall on November 20 at night- states she got up to go to the bathroom and passed out- pt states she woke up on the floor- states she is not sure how long she had laid on the floor. and since then the pain has increased and arm cramping has increased. pt is right handed. pt states occasionally her shoulder will wake her up at night. pt states she has been wearing a compression sleeve- states it does make her arm feel a little better. wearing it all day and off at night. pt would like to know what more she can do to decrease her pain and improve her ROM. Pain left arm: Current Pain Intensity: 5 ROM Shoulder: right 95* left 65* ROM Comments: pt demo with limited ER bilaterally pt demo with poor posture - head forward and shoulders rolled forward. Lymphedema (Circumferential Measure) MCP: right 18cm left 18.5cm Wrist: right 15.5cm left 15.5cm Lower forearm: right 19cm left 19cm Largest forearm: right 23cm left 23cm Elbow: right 23cm left 25cm Largest humerus: right 25cm left 25cm Axcillary: right 27cm left 27cm Quick DASH-Disab of Arm,Shoulder& Hand Quick DASH Score: 70.4525 Goals Goal: Patient will demonstrate adequate knowledge of self-massage by the end of the second week.: Yes Goal: Patient will demonstrate adequate knowledge of skin care and precautions by the end of the first week.: Yes Goal: Patient will demonstrate adequate knowledge of therapeutic exercises by discharge.: Yes Goal: Patient will select an appropriate compression garment and demonstrate adequate knowledge of correct donning technique, care and wearing schedule by discharge.: Yes Goal: Patient will voice understanding of need to replace compression garment every four to six months by discharge.: Yes Goal: Patient will demonstrate ROM WFL by discharge.: Yes Rehabilitation General Assessment: pt demo with limited UE ROM, pain and weakness limiting use of left UE. Pt would benefit from further skilled OT services 2x week for 4 weeks to ed. pt on life long mtg of lymphedema, improve pts posture, decrease pain and improve pts ROM to return pt to PLOF with ADLs. Today therapist ed. pt on AROM ex, posture ex. therapist also ed. pt on use of compression sleeve daily as this did decrease pts pain. pt demo understanding and agree to POC. Rehabilitation Potential: Good Anticipated Interventions Anticipated Interventions: A/AAROM/PROM, Joint Protection/Energy Conservation, Ergonomic Education, Education re Life-long lymphedema Management, Education re Skin Care and Precautions, Education re Self Massage Techniques, Education re Correct Donning Tech,Care&Wearing Sched Comp Garments and Home Program Visit Plan Frequency: 1-2x /Week Duration: 4 Weeks General Plan: therapy will initiate postural correction as pt tolerates improve pts ROM ed. pt on dx of lymphedema and use of compression garment. TEXT: Thank you for the opportunity to evaluate your patient. For Medicare and Medicare HMO plans, please review the plan of care and approve it. It will need to be FAXED BACK to us at [phone] for Medicare purposes. Please let me know if there are questions or concerns regarding this plan of care. Physician Signature: Date:
--- NOTE | 2025-03-09 13:54 | HP.OTDCSUM_ITS ---
Discharge Summary D/C Summary: It has been my pleasure to treat BASSAM JAIN under orders from Dr. Celina Dangelo DO, for the diagnosis of lymphedema for a total of 8 visit(s). Please see the following information for a summary of their discharge status. 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 pt was advised to perform the ex. in a comfort ROM and not to increase her pain. pt was instructed to replace her compression sleeve every 4-6 months- pt demo u nderstanding. Goals Patient Goals: Increase ROM Goal: Patient will demonstrate adequate knowledge of self-massage by the end of the second week.: Yes Goal: Patient will demonstrate adequate knowledge of skin care and precautions by the end of the first week.: Yes Goal: Patient will demonstrate adequate knowledge of therapeutic exercises by discharge.: Yes Goal: Patient will select an appropriate compression garment and demonstrate adequate knowledge of correct donning technique, care and wearing schedule by discharge.: Yes Goal: Patient will voice understanding of need to replace compression garment every four to six months by discharge.: Yes Goal: Patient will demonstrate ROM WFL by discharge.: Yes Plan Plan: d/c D/C Information Discharge Comments: pt has met goals and is d/c at this time with HEP d/c sentence: If there are questions or concerns regarding this patient's occupational therapy, please fell free to call me at [phone]. Thank you for the referral of this patient. Sincerely, Alisson Robertson, OTR/L, CHT
== END 2025-03-09 19:00 | disposition home or self-care (01) ==
LOC: OT 13:30
PROVIDERS: PCP Family Medicine; Referring Provider Family Medicine; Visit Provider Family Medicine
DX: I97.2 Postmastectomy lymphedema syndrome (principal)
CPT/HCPCS: 97110; 97140; 97166; 97530

== ENCOUNTER → 2025-04-05 | Outpatient (CLI) | payer MEDICARE, OTHER, SELFPAY ==
--- NOTE | 2025-04-05 14:01 | RAD_ITS ---
PROCEDURE: SHOULDER MIN 2 VIEWS 04/05/2025 REASON FOR EXAM: PAIN TECHNIQUE: Procedure Code: RADSH Modality: DX Procedure: SHOULDER MIN 2 VIEWS Laterality: Left COMPARISON: None FINDINGS: There is no evidence of fracture or dislocation. 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 There is mild arthritis of the acromioclavicular joint. There are surgical clips in the left axilla consistent with lymph node dissection. RAD/Shoulder min 2 Views IMPRESSION: No evidence of acute injury. [id number] arthritis as described. Reading Location: [place] [id number]
== END | disposition home or self-care (01) ==
LOC: MTRAD 14:00
PROVIDERS: PCP Family Medicine; Referring Provider Family Medicine; Visit Provider Family Medicine
DX: M25.512 Pain in left shoulder (principal); M79.602 Pain in left arm
CPT/HCPCS: 73030

== ENCOUNTER 2025-04-13 14:00 | Outpatient (RCR) | payer MEDICARE, OTHER, SELFPAY ==
--- NOTE | 2025-03-15 14:53 | HP.PTEVAL_ITS ---
Patient's Visit Information Visit Information Visit Information: BASSAM JAIN is a 79 year old F referred to Physical Therapy by Dr. Celina Dangelo DO with a diagnosis of DORSALGIA. Date of Evaluation: 03/15/25 Physical Therapist: Jensen Reed, PT, Cert MDT, OCS Visit Plan Frequency: 2x /Week Duration: 4 Weeks Plan: NO MODALTIES BREAST CA TAKING ORAL CHEMO PT INTERVENTIONS DLS ,POSTURAL EX;S HIP STRENGTHENING ,POSTURAL EX'S AND ACTIVITY MODIFICATION Subjective Subjective: This 79 y/o female presents to physical therapy with back pain. Patient has had lumbar pain many years . Patient reports pain worsening past year. Seen DR x-rays showed spondylosis and DDD. Patient pain symmetrical lumbar w/o pain. No medication. Aggravating factors bending ,lifting ,walking/standing . Alleviating rest ,seating. Patient pain does not affect sleeping. Denies paresthesia/tingling -. Denies coughing/sneezing-. Bowel/bladder-. Patient has had no trauma or falls. Patient is recovering from breast CA and currently on chemotherapy. Patient pain affects QOL and housework /ADLS. SOCIAL: Lives alone VOCATION: retired Pain Bilateral Back: Pain Intensity (Out of 10): 7 Pain Intensity Range: 9 Objective Objective: POSTURE: mild thoracic kyphosis PALPATION: TTP paraspinals /SI NEURO: denies paresthesia/tingling ,reflexes L3-4,L4-5,L5-S1 1/3 MMT: Quads/hams 4/5 ,hip flexion ( peak force ) right 0 ,left 18.9 ,anklE DF 4/5 FLEXABILITY: hamstrings mod tight LUMBAR ROM: flexion 50 % loss ,extension 100 % loss ,side glides 50 % loss Special Tests L/S Slump test left side: Negative L/S Slump test right side: Negative L/S Left Straight Leg Raise: Negative L/S Right Straight Leg Raise: Negative Balance/Special Test Scores Oswestry Low Back Score: 19 Goals Goal 1:: Patient to be I with HEP for back Goal Time Frame: 4-6 Weeks Goal 2:: Patient to improve peak force strength of hips by 5-10# to improve gait Goal Time Frame: 4-6 Weeks Goal 3:: Patient to improve lumbar ROM for function of recovery to put on shoes Goal Time Frame: 4-6 Weeks Goal 4:: Patient to improve back oswestry score by 5 points to improve QOL Goal Time Frame: 4-6 Weeks Goal 5:: Patient to demonstrate 50% improvement with less pain and improved funcion Goal Time Frame: 4-6 Weeks Rehabilitation Potential Physical Therapy Diagnosis: This patient has lumbar pain with pain with motion testing/positioning worse with bending ,walking along with hip weakness ,thus benefit from skilled PT Rehabilitation Potential: Good Anticipated Interventions Patient/Client Instruction: Educate patient on: Condition and Plan of Care For the Purpose of:: To decrease pain, To increase ROM, To improve muscle performance and motor function, To improve ability to perform ADL's, To increase tolerance to activity/condition/position, To improve ability of physical actions for home/community/work/leisure, To improve health of tissue, To decrease soft tissue restriction and To increase flexibility/ROM Therapeutic Exercise to Include: Strength training, Postural training, Flexibilty training and Dynamic Lumbar Stabilization Comment: HIP STRENGTHENING For the Purpose of:: To decrease pain, To increase ROM, To improve muscle performance and motor function, To improve ability to perform ADL's, To increase tolerance to activity/condition/position, To improve gait and locomotor functions, To improve health of tissue, To decrease soft tissue restriction and To increase flexibility/ROM Text: Thank you for the opportunity to evaluate your patient. For Medicare and Medicare HMO plans, please review the plan of care and approve it. It will need to be FAXED BACK to us at [phone] for Medicare purposes. For Medicare only, by signing this I certify the plan of care. Please let me know if there are questions or concerns regarding this plan of care. Physician Signature: Date:
--- NOTE | 2025-04-13 14:25 | HP.PTDCSUM ---
Discharge Summary D/C summary: It has been my pleasure to treat BASSAM JAIN referred by Dr. Celina Dangelo DO, with the diagnosis of DORSALGIA for a total of 8 visit(s). Discharge Date: 04/13/25 Please see the following information for a summary of their discharge status. Subjective Subjective: Doing well .. No pain Feeling stronger,Altough extended standing 2 hrs > Pain Bilateral Back: Pain Intensity (Out of 10): 0 Overall Improvement % Improvement: 75 Objective Objective/Function: POSTURE: mild thoracic kyphosis PALPATION: TTP paraspinals /SI NEURO: denies paresthesia/tingling ,reflexes L3-4,L4-5,L5-S1 1/3 MMT: Quads/hams 4/5 ,hip flexion ( peak force ) right 22.9 ,left 23.9 ,anklE DF 4/5 FLEXABILITY: hamstrings min tight LUMBAR ROM: flexion 50 % loss ,extension 75%-100 % loss ,side glides 50 % loss Goals Goal 1:: Patient to be I with HEP for back Goal Progress: Goal Met Goal 2:: Patient to improve peak force strength of hips by 5-10# to improve gait Goal Progress: Goal Met Goal 3:: Patient to improve lumbar ROM for function of recovery to put on shoes Goal Progress: Goal Met Goal 4:: Patient to improve back oswestry score by 5 points to improve QOL Goal Progress: Goal Met Goal 5:: Patient to demonstrate 50% improvement with less pain and improved funcion Goal Progress: Goal Met Plan Plan: D/C TO HEP D/C Information Discharge Comments: HEP d/c sentence: If there are questions or concerns regarding this patient's physical therapy, please feel free to call me at [phone]. Thank you for the referral of this patient. Sincerely, Jensen Reed, PT, Cert MDT, OCS Balance/Gait/Functional tests Balance/Special Test Scores Oswestry Low Back Score: 7 Improvement % Improvement: 75
== END 2025-04-13 19:00 | disposition home or self-care (01) ==
LOC: PT 14:00
PROVIDERS: PCP Family Medicine; Referring Provider Family Medicine; Visit Provider Family Medicine
DX: M54.9 Dorsalgia, unspecified (principal)
CPT/HCPCS: 97110; 97162; 97530

== ENCOUNTER → 2025-04-18 | Outpatient (CLI) | payer MEDICARE, OTHER, SELFPAY ==
--- NOTE | 2025-04-18 15:27 | MRI_ITS ---
PROCEDURE: MRI/Spine Cervical (Routine)
== END | disposition home or self-care (01) ==
LOC: OPMRI 15:23
PROVIDERS: PCP Family Medicine; Referring Provider Family Medicine; Visit Provider Family Medicine
DX: M79.622 Pain in left upper arm (principal); M50.90 Cervical disc disorder, unspecified, unspecified cervical region
CPT/HCPCS: 72141

== ENCOUNTER → 2025-05-23 | Outpatient (CLI) | payer MEDICARE, OTHER, SELFPAY ==
--- NOTE | 2025-05-23 12:00 | PET_ITS ---
PROCEDURE: PET/CT TUMOR BASE -THIGH SUBS 05/23/2025 REASON FOR EXAM: 79 y/o F with BREAST TECHNIQUE: Procedure Code: [id number] Modality: PT Procedure: PET/CT TUMOR BASE -THIGH SUBS After intravenous injection of 12.1 millicuries of FDG and a standard uptake period, a noncontrast CT scan, followed by a PET scan were acquired along the length of the body from the base of the skull to the mid thighs. The noncontrast helical CT imaging was performed without breath hold, for attenuation correction of PET images and anatomic correlation, but not for primary interpretation, as it is not of the standard diagnostic quality. Images were reviewed in the axial, coronal and sagittal planes. RADIATION DOSE SUMMARY: Effective Dose: Approximately 7 mSv for a standard whole-body PET scan Organ Doses: Varies by organ, with higher doses typically to the bladder, liver, and brain CTDI: 6.3 mGy. D AP: 534.5 mGy cm. COMPARISON: COMPARISON FROM CT, PET OR OTHER PERTINENT EXAMS: PET-CT, 02/16/2024. FINDINGS: Physiologic uptake: There may be expected metabolic uptake within the brain, tongue and floor of the mouth and larynx/vocal cords, heart, ruddy (many normal individuals have hilar uptake in less than 3 nodes with mildly avid hilar nodes less than 2.7 SUV), liver and spleen, system, and GI tract and symmetric muscle uptake. FDG AVID AND NON-AVID LESIONS. Reported avid SUV values (g/mL) are maximum SUV. Head and neck: There is a normal distribution of FDG activity in the visualized brain parenchyma. There is calcific vascular disease of the intracranial portion of both internal carotid arteries. There is calcific vascular disease of both carotid bifurcations. There is normal uptake within the soft tissues of the neck and glandular structures. There is no hypermetabolic lymphadenopathy. Chest: There is a small left pleural effusion, max SUV 2.1. There is mild compressive atelectasis of the adjacent portion of the left lung. There is no abnormal FDG activity in the pulmonary parenchyma. The heart size is upper limits of normal. There is no pericardial effusion. There is moderate calcific vascular disease of the coronary arteries and thoracic aorta. Status post left mastectomy and axillary lymph node dissection. There is no hypermetabolic mediastinal, hilar or axillary lymphadenopathy. Abdomen and pelvis: There is a normal distribution of FDG activity within the gastrointestinal and genitourinary tract. There is no hypermetabolic lymphadenopathy identified. There is moderate calcific vascular disease of the abdominal aorta. Musculoskeletal: There are multiple sclerotic foci not demonstrating FDG activity consistent with treated metastatic disease. There is increased activity in the erector spinae muscles at the midthoracic level and adjacent to the greater trochanters and the ischial tuberosities, consistent with enthesopathy. There is increased activity at both shoulder and hip joints consistent with arthropathy. There is pectus excavatum deformity of the chest. Uptake time: 60 minutes. Mediastinal blood pool: Max SUV, 3.1 Blood glucose: 196 BMI: 16.7 PET/PET/CT Tumor Base -Thigh Subs IMPRESSION: 1. There are no foci of abnormal FDG activity to suggest neoplastic disease. 2. There are areas of increased FDG activity felt to be physiologic or related to arthropathy or enthesopathy. 3. There are multiple sclerotic skeletal foci, not demonstrating FDG activity, consistent with treated metastatic disease. Reading Location: [place] [id number]
== END | disposition home or self-care (01) ==
PROVIDERS: PCP Family Medicine; Referring Provider Internal Medicine Hematology & Oncology; Visit Provider Internal Medicine Hematology & Oncology
DX: C50.812 Malignant neoplasm of overlapping sites of left female breast (principal); C79.51 Secondary malignant neoplasm of bone; C79.2 Secondary malignant neoplasm of skin; Z17.0 Estrogen receptor positive status [ER+]
CPT/HCPCS: 78815; A9552

== ENCOUNTER → 2025-06-13 | Outpatient (CLI) | payer MEDICARE, OTHER, SELFPAY ==
[2025-06-13 18:17] LABS: Anion Gap 10 (7-18); BUN 16 mg/dL (4-19); BUN/Creat Ratio 12.2 RATIO (10-20); Calcium,Total 9.1 mg/dL (7.6-11.0); Carbon Dioxide 29.4 mmol/L (20.0-29.0); Chloride 99 mmol/L (96-106); Glucose 183 mg/dL (70-99); Potassium 3.8 mmol/L (3.5-5.1)
[2025-06-13 18:40] LABS: Creatinine, Urine (random) 60.30 mg/dL (28.00-217.00); Protein, Urine (Random) 7.7 mg/dL (0.0-12.0); Protein:Creat Ratio 128 mg/g CRE (0-200)
== END | disposition home or self-care (01) ==
LOC: MTLAB 14:24
PROVIDERS: PCP Family Medicine; Referring Provider Internal Medicine Nephrology; Visit Provider Internal Medicine Nephrology
DX: N18.32 Chronic kidney disease, stage 3b (principal)
CPT/HCPCS: 36415; 80048; 82570; 84156